=== PATIENT | female | born 1955 | race American Indian/Alaskan Native ===

== ENCOUNTER 2016-03-22 05:51 | Day surgery (SDC) | payer MEDICARE, OTHER ==
[~2016-03-22 05:51] MED LIST: ANCEF/STERILE WATER 2 GM/20 ML 20 ML IV NR; NACL 0.9% 1000 ML 1,000 ML IV SCH
[2016-03-22] MEDS ORDERED: NACL BACTERIOSTATIC INFILTRATI ONE (06:44)
[2016-03-22] MEDS ORDERED: NACL 0.9% 1000 ML 1,000 ML ONE (06:56)
[2016-03-22 07:01] LABS: Basophils % (Auto) 1.2 % (0.0-1.8); Eosinophils % (Auto) 4.6 % (0.0-4.3); Hematocrit 39.6 % (30.3-42.9); Mean Corpuscular HGB Conc 33 % (30-34); Mean Corpuscular Hemoglobin 30 pg (28-32); Mean Corpuscular Volume 92 fl (79-97); Platelet Count 232 K/mm3 (140-440); Red Cell Distribution Width 14.5 % (13.2-15.2); White Blood Count 4.9 K/mm3 (4.5-11.0)
[2016-03-22] MEDS ORDERED: SUBLIMAZE ONE (07:02)
[2016-03-22] MEDS ORDERED: DIPRIVAN 10 MG/ML IV ONE (07:02)
[2016-03-22] MEDS ORDERED: ZOFRAN ONE (07:10)
[2016-03-22] MEDS ORDERED: XYLOCAINE MPF 2% ONE (07:10)
[2016-03-22 07:11] LABS: INR 0.95 (0.87-1.13)
[2016-03-22] MEDS ORDERED: D50W (25GM) IV ONE ×2 (07:11→07:27)
--- NOTE | 2016-03-22 07:18 | Anesthesia Consultation ---
Anesthesia Consult and Med Hx Date of service: 03/22/16 - Airway Anesthetic Teeth Evaluation: Good ROM Head & Neck: Adequate Mental/Hyoid Distance: Adequate Mallampati Class: Class II Intubation Access Assessment: Good - Pulmonary Exam CTA: Yes - Cardiac Exam Cardiac Exam: RRR - Pre-Operative Health Status ASA Pre-Surgery Classification: ASA4 Proposed Anesthetic Plan: General, MAC - Pre-Anesthesia Comment Pre-Anesthesia Comments: Had hypertensive emergency 6 months ago C/B CVA and seizures. Pt presently has mild dementia and some weakness in both legs though she is able to walk with assistance. - Pulmonary Hx Smoking: No Hx Sleep Apnea: No (JEAN PAUL PRE SCREEN HIGH RISK) - Cardiovascular System Hx Hypertension: Yes (X 15 YRS) Hx Coronary Artery Disease: Yes Hx Heart Attack/AMI: Yes (Triple bypass 2008) Hx Angina: No (denies chest pain and tightness. Is unsure if she had AR prior to CABG.) Hx Peripheral Vascular Disease: Yes (LEGS) - Central Nervous System Hx Seizures: Yes (LAST SEIZURE 09/2015) CVA: Yes ("SEVERAL MINI STROKES"-GENERALIZED WEAKNESS) - Endocrine Hx Renal Disease: Yes Hx Insulin Dependent Diabetes: Yes (glucose 71 this AM . Treated with D50) - Other Systems Hx Cancer: No - Additional Comments Anesthesia Medical History Comments: Patient refuses blood transfusion.
--- NOTE | 2016-03-22 07:21 | Anesthesia Day of Surgery ---
Anesthesia Day of Surgery - Day of Surgery Patient Examined: Yes Patient H&P Reviewed: Yes Patient is NPO: Yes
[2016-03-22] MEDS ORDERED: ZOFRAN IV PRN (07:27)
[2016-03-22] MEDS ORDERED: DILAUDID IV PRN (07:27)
[2016-03-22 07:54] LABS: Anion Gap 20 mmol/L; BUN/Creatinine Ratio 6.07; Blood Urea Nitrogen 17 mg/dL (7-17); Calcium 9.3 mg/dL (8.4-10.2); Carbon Dioxide 23 mmol/L (22-30); Chloride 99.7 mmol/L (98-107); Glucose 71 mg/dL (65-100); Potassium 4.8 mmol/L (3.6-5.0); Sodium 138 mmol/L (137-145)
[2016-03-22] MEDS ORDERED: PEPCID IV NR (08:00)
[2016-03-22] MEDS ORDERED: NACL 0.9% 250ML ONE (08:00)
[2016-03-22] MEDS ORDERED: NACL 0.9% 1000 ML 1,000 ML IV SCH (08:00)
[2016-03-22] MEDS ORDERED: MARCAINE 0.5% INFILTRATI ONE (08:45)
[2016-03-22] MEDS ORDERED: NACL 0.9% IR ONE (08:46)
[2016-03-22] MEDS ORDERED: XYLOCAINE 1%/ EPI 1:100,000 INFILTRATI ONE (08:46)
[2016-03-22] MEDS ORDERED: HEPARIN 10,000 UNITS/10 ML 1,000 UNIT in NACL 0.9% 250ML 250 ML IR ONE (08:47)
--- NOTE | 2016-03-22 08:52 | Progress Note ---
Subjective Date of service: 03/22/16 Interval history: Patient was noted in PreOp to have low blood glucose. She was given 1/2 amp of D50 and immediately complained of chest tightness. She was placed on O2 by NC and was given IV pepcid. An EKG showed no change from preop. The symptoms resolved and after consultation with surgeon, it was decided to proceed using MAC anesthesia. Objective - Constitutional Vitals: Vital Signs - 12hr 03/22/16 06:20 Temperature 98.6 F Pulse Rate 68 Respiratory 18 Rate Blood Pressure 160/91 O2 Sat by Pulse 96 Oximetry - Labs CBC & Chem 7: 03/22/16 06:50 03/22/16 06:50 Labs: Abnormal lab results 03/22/16 03/22/16 Range/Units 06:50 06:50 Lymph % (Auto) 43.0 H (13.4-35.0) % [place] % (Auto) 9.4 H (0.0-7.3) % Eos % (Auto) 4.6 H (0.0-4.3) % Creatinine 2.8 H (0.7-1.2) mg/dL
[2016-03-22] MEDS ORDERED: ANCEF/STERILE WATER 2 GM/20 ML IV NR (09:00)
--- NOTE | 2016-03-22 09:32 | Operative Report ---
Operative Report Operative Report: Date of procedure: 03/22/2016 Pre-operative diagnosis: End-stage Renal Disease Post-operative diagnosis: End-stage Renal Disease Procedure(s): Creation of Left Brachial Artery to Basilic Arteriovenous Fistula Surgeon: Michael Blanc MD [employer] Age Program Associate: None Anesthesia: Local\MAC EBL: Minimal Counts: Correct Complications: None Condition: Stable Findings: Successful creation of left brachial basilic arteriovenous fistula with palpable thrill at the end of the case. Specimen: None Indication: The patient is a 60-year-old female with history of end-stage renal disease who is currently in need of long-term access. Her vein mapping suggested that she was an adequate candidate for creation of a fistula. She was given the risks, benefits, and alternative procedures and consented to procedure. Description of Procedure: The patient was brought to the operating room and laid in supine position after general endotracheal anesthesia was administered the patient was prepped and draped in normal sterile fashion. After anesthetizing the skin a transverse incision was created just below the antecubital crease. Dissection was carried down to the the basilic vein using sharp dissection. The vein was dissected out both proximally and distally and suture ligated and divided distally. I then ran a 3 Korey proximally in the vein, to ensure patency of the vein. I then flushed the vein with heparinized saline and controlled flow with a bulldog clamp. I then dissected out the brachial artery through this incision circumferentially both proximal and distal and controlled th artery with vessel loops. I placed the vessel loops on tension, controlling the flow through the artery, and created an arteriotomy using an 11 blade and Keenan scissors. I created an end to side anastomosis between the basilic vein and brachial artery using a 6-0 Prolene in running fashion. Prior to completing the anastomosis I flushed the artery both proximally and distally and then advanced a 3 Korey proximally to break the spasm in the artery. I completed the anastomosis and removed all vessel loops allowing flow into the fistula which had an excellent thrill. I achieved hemostasis with a combination of direct pressure and electrocautery. Once hemostasis was achieved I anesthetized the wound with Marcaine. I closed the wound in 2 layers using 3-0 Vicryl in a running fashion to close the deep dermal layer and 4-0 Monocryl in a running fashion in the subcuticular layer. I dressed the wound with Surgicel. The patient tolerated the procedure well, all sponge needle and instrument counts were correct. The patient was taken to recovery in stable condition.
--- NOTE | 2016-03-22 09:36 | Short Stay Summary ---
Short Stay Documentation Date of service: 03/22/16 Narrative H&P: See H&P - History H&P: obtained from office - Allergies and Medications Current Medications: Allergies Tetracyclines Adverse Reaction (Verified 09/26/14 12:09) Unknown Home Medications Medication Instructions Recorded Confirmed Last Taken Type Gabapentin [Neurontin] 300 mg PO DAILY 07/25/14 03/22/16 03/21/16 19:00 History Linaclotide [Linzess] 290 mcg PO QDAY 07/25/14 03/22/16 03/21/16 19:00 History Insulin Glargine [Lantus VIAL] 10 units SUB-Q QPM 02/23/16 03/22/16 03/21/16 19: 00 History glipiZIDE [Glucotrol] 5 mg PO QDAY 02/23/16 03/22/16 03/21/16 19:00 History levETIRAcetam [Keppra TAB] 500 mg PO DAILY 02/23/16 03/22/16 03/21/16 19:00 History AtorvaSTATin 20 mg PO DAILY 03/22/16 03/22/16 03/21/16 19:00 History Clopidogrel Bisulfate [Clopidogrel] 75 mg PO DAILY 03/22/16 03/22/16 03/21/16 19 :00 History Vitamin D 50,000 units PO 1XW 03/22/16 03/22/16 03/21/16 19:00 History Active Medications Cefazolin Sodium (Ancef/Sterile Water 2 Gm/20 Ml) 2 gm IV PREOP NR Stop: 03/22/16 23:59 Famotidine (Pepcid) 20 mg IV PREOP NR Stop: 03/22/16 23:00 Last Admin: 03/22/16 07:40 Dose: 20 mg Hydromorphone HCl (Dilaudid) 0.25 mg IV Q10MIN PRN PRN Reason: Pain, Moderate (4-6) Stop: 03/25/16 07:28 Sodium Chloride (Nacl 0.9% 1000 Ml) 1,000 mls @ 42 mls/hr IV DIRECT ALLEY Last Admin: 03/22/16 07:10 Dose: 42 mls/hr - Brief post op/procedure progress note Date of procedure: 03/22/16 Pre-op diagnosis: chronic renal insufficiency Post-op diagnosis: same Procedure: Creation of left brachiobasilic arteriovenous fistula Anesthesia: MAC, local Surgeon: BRADLY UNDERWOOD Estimated blood loss: minimal Pathology: none Condition: stable - Disposition Condition at discharge: Good Disposition: DISCHARGED TO HOME OR SELFCARE Short Stay Discharge Plan Activity: other (no heavy lifting with left arm) Wound: open to air, keep clean and dry, other (okay to wash the wound with soap and water but do not soak in water) Follow up with: BRADLY UNDERWOOD MD [Staff Physician] - 14 Days Prescriptions: HYDROcodone/APAP 7.5-325 [[place] 7.5/325] 1 each PO Q6HR PRN #50 tablet PRN Reason: Pain
--- NOTE | 2016-03-22 10:21 | Post Anesthesia Evaluation ---
- Post Anesthesia Evaluation Patient Participated: Yes Airway Patent: Yes Stable Respiratory Function: Yes Nausea/Vomiting: No Temp > 96.8F: Yes Pain Manageable: Yes Adequeate Hydration: Yes Anesthesia Complications: No Block Receding Appropriately: Not Applicable Patient on Ventilator: No
[2016-03-22 10:47] VITALS: BP 126/78
== END 2016-03-22 11:55 | disposition home or self-care (01) ==
LOC: OR 05:51
PROVIDERS: ATTEND Surgery Vascular Surgery
DX: E11.22 Type 2 diabetes mellitus with diabetic chronic kidney disease (principal); I12.0 Hypertensive chronic kidney disease with stage 5 chronic kidney disease or end stage renal disease; N18.6 End stage renal disease; M19.90 Unspecified osteoarthritis, unspecified site; E78.00 Pure hypercholesterolemia, unspecified; F32.9 Major depressive disorder, single episode, unspecified; Z86.73 Personal history of transient ischemic attack (TIA), and cerebral infarction without residual deficits; Z98.890 Other specified postprocedural states; Z83.3 Family history of diabetes mellitus; Z82.49 Family history of ischemic heart disease and other diseases of the circulatory system; Z95.1 Presence of aortocoronary bypass graft; Z99.2 Dependence on renal dialysis; Z90.710 Acquired absence of both cervix and uterus
CPT/HCPCS: 36415; 36821; 80048; 82962; 85025; 85610; 93005; 93010; C1757; J0690; J1644; J2405; J2704; J7030; J7050; J3010

== ENCOUNTER 2016-05-10 22:30 | Inpatient (IN) | payer MEDICARE ==
[2016-05-11 00:26] LABS: Hematocrit 42.6 % (30.3-42.9); Hemoglobin 13.4 gm/dl (10.1-14.3); Mean Corpuscular HGB Conc 31 % (30-34); Mean Corpuscular Hemoglobin 30 pg (28-32); Mean Corpuscular Volume 95 fl (79-97); Platelet Count 276 K/mm3 (140-440); Red Blood Count 4.47 M/mm3 (3.65-5.03); Red Cell Distribution Width 16.5 % (13.2-15.2); White Blood Count 5.6 K/mm3 (4.5-11.0)
[2016-05-11 00:50] LABS: Albumin 4.2 g/dL (3.9-5); Albumin/Globulin Ratio 1.3 %; BUN/Creatinine Ratio 7.6; Bilirubin,Total 0.4 mg/dL (0.1-1.2); Calcium 9.5 mg/dL (8.4-10.2); Chloride 100.3 mmol/L (98-107); Potassium 4.3 mmol/L (3.6-5.0); Total Protein 7.5 g/dL (6.3-8.2)
[2016-05-11 04:33] LABS: Bacteria,Urine 1+ /HPF (Negative); Bilirubin,Urine SM (Negative); Blood,Urine NEG (Negative); Ketones,Urine TR mg/dL (Negative); Leukocyte Esterase,Urine LG (Negative); Mucus,Urine FEW /HPF; Nitrite,Urine NEG (Negative); Renal Epithelial Cells,Urine 2 /LPF
[2016-05-11] MEDS ORDERED: ROCEPHIN/NS 1 GM/50 ML 1 GM/50 ML BAG IV ONE (05:19)
[2016-05-11] MEDS ORDERED: NACL 0.9% 1000 ML 1,000 ML IV SCH ×2 (06:00→09:00)
--- NOTE | 2016-05-11 07:40 | Emergency Department Report ---
HPI - General Chief Complaint: Abdominal Pain Time Seen by Provider: 05/11/16 06:52 - HPI HPI: Chief complaint: Abdominal pain HPI: Patient is a 60-year-old female with a history of stage renal disease on hemodialysis. Last dialysis was yesterday after missing her dialysis on . Patient has hypertension and diabetes as well as coronary artery disease status post triple bypass surgery in 2008. Patient states the abdominal pain began yesterday evening. Patient had nausea but no vomiting, fever or diarrhea. Patient denies any shortness of breath cough or cold. Patient was noted to have a urinary tract infection and prior to my arrival was given IV fluids and Rocephin and had a urine culture done. Patient states for the last 30 minutes that she's been here she's had chest heaviness. Patient is also had a history of a CVA is a somewhat poor historian. Patient's sister is here with her and gives much of the history. Mode of arrival: [private car] Source: [Patient] and patient's sister Began: Yesterday evening Duration: Less than 1 day Context: See above Quality: Heaviness to the chest and vague abdominal pain Severity: 5 out of 10 Improved with: Nothing Worsened with: Nothing Associated signs and symptoms: See above ED Past Medical Hx - Past Medical History Previous Medical History?: Yes Hx Hypertension: Yes (X 15 YRS) Hx CVA: Yes Hx Heart Attack/AMI: Yes (Triple bypass 2008) Hx Congestive Heart Failure: (pt denies being diagnosed) Hx Diabetes: Yes Hx GERD: Yes Hx Renal Disease: Yes Hx Arthritis: Yes Hx Headaches / Migraines: Yes (MIGRAINES) Hx Seizures: Yes (LAST SEIZURE 09/2015) Hx Dementia: Yes Additional medical history: triple bypass 2008 - Surgical History Past Surgical History?: Yes Hx Open Heart Surgery: Yes (CABG 2008) Additional Surgical History: triple bypass 2008 - Social History Smoking Status: Never Smoker Substance Use Type: None - Medications Home Medications: Home Medications Medication Instructions Recorded Confirmed Last Taken Type Gabapentin [Neurontin] 300 mg PO DAILY 07/25/14 03/22/16 03/21/16 19:00 History Linaclotide [Linzess] 290 mcg PO QDAY 07/25/14 03/22/16 03/21/16 19:00 History Insulin Glargine [Lantus VIAL] 10 units SUB-Q QPM 02/23/16 03/22/16 03/21/16 19: 00 History glipiZIDE [Glucotrol] 5 mg PO QDAY 02/23/16 03/22/16 03/21/16 19:00 History levETIRAcetam [Keppra TAB] 500 mg PO DAILY 02/23/16 03/22/16 03/21/16 19:00 History AtorvaSTATin 20 mg PO DAILY 03/22/16 03/22/16 03/21/16 19:00 History Clopidogrel Bisulfate [Clopidogrel] 75 mg PO DAILY 03/22/16 03/22/16 03/21/16 19 :00 History HYDROcodone/APAP 7.5-325 [[place] 1 each PO Q6HR PRN #50 tablet 03/22/16 Unknown Rx 7.5/325] Vitamin D 50,000 units PO 1XW 03/22/16 03/22/16 03/21/16 19:00 History ED Review of Systems ROS: Stated complaint: ABD CRAMPS/ Other details as noted in HPI Comment: Unobtainable due to pts medical conditions (due to patient's poor memory) Physical Exam - Physical Exam Vital Signs: Vital Signs 05/10/16 23:41 Temperature 98.2 F Pulse Rate 84 Respiratory 18 Rate Blood Pressure 148/94 O2 Sat by Pulse 100 Oximetry Physical Exam: GENERAL: The patient is well-developed well-nourished . HEENT: Normocephalic. Atraumatic. Extraocular motions are intact. Patient has moist mucous membranes. NECK: Supple. No meningitic signs are noted. There is no adenopathy noted. CHEST/LUNGS: Clear to auscultation. There is no respiratory distress noted. HEART/CARDIOVASCULAR: Regular. There is no tachycardia. There is no gallop rub or murmur. ABDOMEN: Abdomen is soft, nontender. Patient has normal bowel sounds. There is no abdominal distention. SKIN: There is no rash. There is no edema. There is no diaphoresis. NEURO: The patient is awake, alert, and oriented. The patient is cooperative. The patient has no focal neurologic deficits. Patient Is Slow to Answer Questions and Seems Confused about the answer at times MUSCULOSKELETAL: There is no tenderness or deformity. There is no limitation range of motion. There is no evidence of acute injury. ED Course Vital Signs 05/10/16 23:41 Temperature 98.2 F Pulse Rate 84 Respiratory 18 Rate Blood Pressure 148/94 O2 Sat by Pulse 100 Oximetry - Reevaluation(s) Reevaluation #1: 05/11/16 07:43 Patient will be admitted to the hospitalist for her chest pressure. Patient has an extensive cardiac history. ED Medical Decision Making - Lab Data Result diagrams: 05/11/16 00:15 05/11/16 00:15 Laboratory Tests 09/02/15 05/11/16 05/11/16 08:47 00:15 03:47 Total Creatine Kinase 110 CK-MB (CK-2) 1.1 CK-MB (CK-2) Rel Index 1.0 Troponin T < 0.010 L Lipase 21 Ur Leukocyte Esterase Lg Urine WBC (Auto) 77.0 H Urine RBC (Auto) 10.0 U Epithel Cells (Auto) 4.0 Urine Bacteria (Auto) 1+ 05/11/16 07:07 Total Creatine Kinase CK-MB (CK-2) CK-MB (CK-2) Rel Index Troponin T < 0.010 Lipase Ur Leukocyte Esterase Urine WBC (Auto) Urine RBC (Auto) U Epithel Cells (Auto) Urine Bacteria (Auto) - EKG Data -: EKG Interpreted by Me EKG shows normal: sinus rhythm Rate: normal (75) - EKG Data When compared to previous EKG there are: no significant change Interpretation: other (old inferior and anterior lateral infarct) - Radiology Data interpreted by me: Chest x-ray shows no acute process. Critical care attestation.: If time is entered above; I have spent that time in minutes in the direct care of this critically ill patient, excluding procedure time. ED Disposition Clinical Impression: Chest pain, Chronic kidney disease (CKD), Urinary tract infection Disposition: OP ADMITTED IP TO THIS HOSP Is pt being admited?: Yes Does the pt Need Aspirin: Yes Condition: Fair Instructions: Abdominal Pain (ED), Chest Pain (ED) Referrals: PRIMARY CARE,MD [Primary Care Provider] - 3-5 Days Time of Disposition: 07:35 (admit to the hospitalist)
[2016-05-11] MEDS ORDERED: NORCO 7.5/325 PO PRN (08:17)
--- NOTE | 2016-05-11 08:17 | History and Physical Report ---
History of Present Illness Date of examination: 05/11/16 History of present illness: Patient is a 60-year-old female with a history of stage renal disease on hemodialysis. Last dialysis was yesterday after missing her dialysis on . Patient has hypertension and diabetes as well as coronary artery disease status post triple bypass surgery in 2008. Patient states the abdominal pain began yesterday evening. Patient had nausea but no vomiting, fever or diarrhea. Patient denies any shortness of breath cough or cold. Patient was noted to have a urinary tract infection and prior to my arrival was given IV fluids and Rocephin and had a urine culture done. Patient states for the last 30 minutes that she's been here she's had chest heaviness. Patient is also had a history of a CVA is a somewhat poor historian. Patient's sister is here with her and gives much of the history. Past History Past Medical History: diabetes, seizures Medications and Allergies Allergies Allergy/AdvReac Type Severity Reaction Status Date / Time Tetracyclines AdvReac Unknown Verified 09/26/14 12:09 Home Medications Medication Instructions Recorded Confirmed Last Taken Type Gabapentin [Neurontin] 300 mg PO DAILY 07/25/14 05/11/16 03/21/16 19:00 History Linaclotide [Linzess] 290 mcg PO QDAY 07/25/14 05/11/16 03/21/16 19:00 History Insulin Glargine [Lantus VIAL] 10 units SUB-Q QPM 02/23/16 05/11/16 03/21/16 19: 00 History glipiZIDE [Glucotrol] 5 mg PO QDAY 02/23/16 05/11/16 03/21/16 19:00 History levETIRAcetam [Keppra TAB] 500 mg PO DAILY 02/23/16 05/11/16 03/21/16 19:00 History AtorvaSTATin 20 mg PO DAILY 03/22/16 05/11/16 03/21/16 19:00 History Clopidogrel Bisulfate [Clopidogrel] 75 mg PO DAILY 03/22/16 05/11/16 03/21/16 19 :00 History HYDROcodone/APAP 7.5-325 [[place] 1 each PO Q6HR PRN #50 tablet 03/22/16 05/11/16 Unknown Rx 7.5/325] Vitamin D 50,000 units PO 1XW 03/22/16 05/11/16 05/05/16 10:00 History Active Meds: Active Medications Sodium Chloride (Nacl 0.9% 1000 Ml) 1,000 mls @ 999 mls/hr IV DIRECT ALLEY Review of Systems Cardiovascular: chest pain Exam - Constitutional Vitals: Temp Pulse Resp BP Pulse Ox 98.2 F 84 18 148/94 100 05/10/16 23:41 05/10/16 23:41 05/10/16 23:41 05/10/16 23:41 05/10/16 23:41 General appearance: Present: mild distress - EENT Eyes: Present: PERRL, EOM intact ENT: hearing intact, clear oral mucosa - Neck Neck: Present: supple, normal ROM - Respiratory Respiratory effort: normal Respiratory: bilateral: CTA - Cardiovascular Rhythm: regular Heart Sounds: Present: S1 & S2 - Abdominal General gastrointestinal: Present: soft, non-tender, non-distended, normal bowel sounds - Musculoskeletal Musculoskeletal: strength equal bilaterally - Psychiatric Psychiatric: appropriate mood/affect, intact judgment & insight - Neurologic Neurologic: CNII-XII intact, moves all extremities Results - Labs CBC & Chem 7: 05/11/16 00:15 05/11/16 00:15 Labs: Laboratory Last Values WBC 5.6 K/mm3 (4.5-11.0) 05/11/16 00:15 RBC 4.47 M/mm3 (3.65-5.03) 05/11/16 00:15 Hgb 13.4 gm/dl (10.1-14.3) 05/11/16 00:15 Hct 42.6 % (30.3-42.9) 05/11/16 00:15 MCV 95 fl (79-97) 05/11/16 00:15 MCH 30 pg (28-32) 05/11/16 00:15 MCHC 31 % (30-34) 05/11/16 00:15 RDW 16.5 % (13.2-15.2) H 05/11/16 00:15 Plt Count 276 K/mm3 (140-440) 05/11/16 00:15 Lymph % (Auto) 34.8 % (13.4-35.0) 05/11/16 00:15 [place] % (Auto) 9.9 % (0.0-7.3) H 05/11/16 00:15 Eos % (Auto) 3.0 % (0.0-4.3) 05/11/16 00:15 Baso % (Auto) 1.0 % (0.0-1.8) 05/11/16 00:15 Lymph # 2.0 K/mm3 (1.2-5.4) 05/11/16 00:15 [place] # 0.6 K/mm3 (0.0-0.8) 05/11/16 00:15 Eos # 0.2 K/mm3 (0.0-0.4) 05/11/16 00:15 Baso # 0.1 K/mm3 (0.0-0.1) 05/11/16 00:15 Seg Neutrophils % 51.3 % (40.0-70.0) 05/11/16 00:15 Seg Neutrophils # 2.9 K/mm3 (1.8-7.7) 05/11/16 00:15 Sodium 143 mmol/L (137-145) 05/11/16 00:15 Potassium 4.3 mmol/L (3.6-5.0) 05/11/16 00:15 Chloride 100.3 mmol/L (98-107) 05/11/16 00:15 Carbon Dioxide 28 mmol/L (22-30) 05/11/16 00:15 Anion Gap 19 mmol/L 05/11/16 00:15 BUN 19 mg/dL (7-17) H 05/11/16 00:15 Creatinine 2.5 mg/dL (0.7-1.2) H 05/11/16 00:15 Estimated GFR 24 ml/min 05/11/16 00:15 BUN/Creatinine Ratio 7.60 % 05/11/16 00:15 Glucose 75 mg/dL (65-100) 05/11/16 00:15 POC Glucose 82 (70-105) 05/11/16 05:19 Calcium 9.5 mg/dL (8.4-10.2) 05/11/16 00:15 Total Bilirubin 0.4 mg/dL (0.1-1.2) 05/11/16 00:15 AST 20 units/L (5-40) 05/11/16 00:15 ALT 11 units/L (7-56) 05/11/16 00:15 Alkaline Phosphatase 124 units/L (35-129) 05/11/16 00:15 Troponin T < 0.010 ng/mL (0.00-0.029) 05/11/16 07:07 Total Protein 7.5 g/dL (6.3-8.2) 05/11/16 00:15 Albumin 4.2 g/dL (3.9-5) 05/11/16 00:15 Albumin/Globulin Ratio 1.3 % 05/11/16 00:15 Lipase 21 units/L (13-60) 05/11/16 00:15 Urine Color [place] (Yellow) 05/11/16 03:47 Urine Turbidity Slightly-cloudy (Clear) 05/11/16 03:47 Urine pH 5.0 (5.0-7.0) 05/11/16 03:47 Ur Specific [place] 1.023 (1.003-1.030) 05/11/16 03:47 Urine Protein 100 mg/dl mg/dL (Negative) 05/11/16 03:47 Urine Glucose (UA) Neg mg/dL (Negative) 05/11/16 03:47 Urine Ketones Tr mg/dL (Negative) 05/11/16 03:47 Urine Blood Neg (Negative) 05/11/16 03:47 Urine Nitrite Neg (Negative) 05/11/16 03:47 Urine Bilirubin Sm (Negative) 05/11/16 03:47 Urine Ictotest Negative (Negative) 05/11/16 03:47 Urine Urobilinogen 2.0 mg/dL (<2.0) 05/11/16 03:47 Ur Leukocyte Esterase Lg (Negative) 05/11/16 03:47 Urine WBC (Auto) 77.0 /HPF (0.0-6.0) H 05/11/16 03:47 Urine RBC (Auto) 10.0 /HPF (0.0-6.0) 05/11/16 03:47 U Epithel Cells (Auto) 4.0 /HPF (0-13.0) 05/11/16 03:47 Urine Bacteria (Auto) 1+ /HPF (Negative) 05/11/16 03:47 Ur Renal Epithelial Cell 2 /LPF 05/11/16 03:47 Hyaline Casts 13 /LPF 05/11/16 03:47 Urine Mucus Few /HPF 05/11/16 03:47 Assessment and Plan - Patient Problems (1) Chest pain Current Visit: Yes Status: Acute Qualifiers: Chest pain type: C Plan to address problem: We'll admit to telemetry, get cardiology consult, aspirin, beta blockers, 2-D echo, follow troponins (2) Hypertension Current Visit: Yes Status: Acute Qualifiers: Hypertension type: H Plan to address problem: Continue blood pressure meds (3) Chronic kidney disease (CKD) Current Visit: Yes Status: Chronic Qualifiers: Chronic kidney disease stage: C Plan to address problem: We'll get nephrology consult. Unsure whether this is acute etiology of chronic (4) H/O: CVA (cerebrovascular accident) Current Visit: No Status: Chronic
[2016-05-11] MEDS ORDERED: MILK OF MAGNESIA PO PRN (08:19)
[2016-05-11] MEDS ORDERED: MORPHINE IV PRN (08:19)
[2016-05-11] MEDS ORDERED: ZOFRAN IV PRN (08:19)
[2016-05-11] MEDS ORDERED: TYLENOL PO PRN (08:19)
[2016-05-11] MEDS ORDERED: SODIUM CHLORIDE FLUSH SYRINGE 10 ML IV PRN (08:19)
[2016-05-11] MEDS ORDERED: PERCOCET 5/325 PO PRN (08:19)
[2016-05-11] MEDS ORDERED: VITAMIN D 50000 UNIT PO SCH (08:30)
[2016-05-11] MEDS ORDERED: LEXISCAN IV ONE ×2 (09:11→09:13)
--- NOTE | 2016-05-11 09:51 | XRay Report ---
AP CHEST: HISTORY: chest pain AP view of the chest demonstrates a normal mediastinal and cardiac contour with clear lungs and normal bony and soft tissue structures. CABG changes. A dual-lumen right IJ venous catheter has been inserted since 09/02/15 which terminates in the mid SVC. IMPRESSION: No acute cardiopulmonary process.
[2016-05-11] MEDS ORDERED: NON-FORMULARY (Atorvastatin 20 MG) PO SCH (10:00)
[2016-05-11] MEDS ORDERED: NON-FORMULARY (Linaclotide [Linzess] 290 MCG) PO SCH (10:00)
[2016-05-11] MEDS ORDERED: LOPRESSOR PO SCH (10:00)
[2016-05-11] MEDS ORDERED: DULCOLAX PR PRN (10:00)
[2016-05-11] MEDS ORDERED: NON-FORMULARY (Gabapentin [Neurontin] 300 MG) PO SCH (10:00)
[2016-05-11] MEDS ORDERED: PLAVIX PO SCH (10:00)
[2016-05-11] MEDS ORDERED: GLUCOTROL PO SCH (10:00)
[2016-05-11 10:04] LABS: Creatine Kinase MB 1.2 ng/mL (0.0-4.0)
[2016-05-11 10:05] LABS: Creatine Kinase 67 units/L (30-135)
--- NOTE | 2016-05-11 10:26 | Consultation ---
History of Present Illness - Reason for Consult Consult date: 05/11/16 end stage renal disease - History of Present Illness This is a 60-year-old female who presented to the hospital for a chief complaint of abdominal pain with associated nausea x 1 day prior to admission and while in E.R began to complain of having chest pain. Patient has ESRD and was started on hemodialysis here on 09/06/2015. Patient has history of Diabetes , Hypertension and CAD, S/P triple bypass surgery. Patient states she receives hemodialysis at [facility] in [place] on a schedule of Friday, Friday, and Friday's per patient. She reports she is due for hemodialysis today. Patient has a left AVF placed 1 week ago and a Right IJ perm-catheter placed in August 2015. Patient was seen in medical laboratory technical officer awaiting to undergo stress test. We will hemodialyze patient after stress test today. We are being consulted for management of this patient's ESRD. Past History Past Medical History: CAD, diabetes, hypertension Past Surgical History: Other (S/P CABG, Left AVF placed 1 week ago and Right IJ perm-catheter) Social history: no significant social history Family history: no significant family history Medications and Allergies Allergies Allergy/AdvReac Type Severity Reaction Status Date / Time Tetracyclines AdvReac Unknown Verified 09/26/14 12:09 Home Medications Medication Instructions Recorded Confirmed Last Taken Type Gabapentin [Neurontin] 300 mg PO DAILY 07/25/14 05/11/16 03/21/16 19:00 History Linaclotide [Linzess] 290 mcg PO QDAY 07/25/14 05/11/16 03/21/16 19:00 History Insulin Glargine [Lantus VIAL] 10 units SUB-Q QPM 02/23/16 05/11/16 03/21/16 19: 00 History glipiZIDE [Glucotrol] 5 mg PO QDAY 02/23/16 05/11/16 03/21/16 19:00 History levETIRAcetam [Keppra TAB] 500 mg PO DAILY 02/23/16 05/11/16 03/21/16 19:00 History AtorvaSTATin 20 mg PO DAILY 03/22/16 05/11/16 03/21/16 19:00 History Clopidogrel Bisulfate [Clopidogrel] 75 mg PO DAILY 03/22/16 05/11/16 03/21/16 19 :00 History HYDROcodone/APAP 7.5-325 [[place] 1 each PO Q6HR PRN #50 tablet 03/22/16 05/11/16 Unknown Rx 7.5/325] Vitamin D 50,000 units PO 1XW 03/22/16 05/11/16 05/05/16 10:00 History Active Meds: Active Medications Acetaminophen (Tylenol) 650 mg PO Q4H PRN PRN Reason: Pain MILD(1-3)/Fever >100.5/HARRIS Acetaminophen/Hydrocodone Bitart ([place] 7.5/325) 1 each PO Q6H PRN PRN Reason: Pain Aspirin (Ecotrin) 325 mg PO QDAY [facility] Atorvastatin Calcium (Lipitor) 20 mg PO DAILY [facility] Bisacodyl (Dulcolax) 10 mg [place] QDAY PRN PRN Reason: Constipation unrelieved by MOM Clopidogrel Bisulfate (Plavix) 75 mg PO DAILY [facility] Enoxaparin Sodium (Lovenox) 30 mg SUB-Q QDAY [facility] Gabapentin (Neurontin) 300 mg PO DAILY [facility] Glipizide (Glucotrol) 5 mg PO QDDIAB [facility] Sodium Chloride (Nacl 0.9% 1000 Ml) 1,000 mls @ 999 mls/hr IV DIRECT [facility] Sodium Chloride (Nacl 0.9% 1000 Ml) 1,000 mls @ 100 mls/hr IV DIRECT [facility] Insulin Detemir (Levemir) 10 units SUB-Q DAILY@1800 [facility] Levetiracetam (Keppra) 500 mg PO DAILY [facility] Magnesium Hydroxide (Milk Of Magnesia) 30 ml PO Q4H PRN PRN Reason: Constipation Metoprolol Tartrate (Lopressor) 25 mg PO BID [facility] Miscellaneous Medication (Linaclotide [Linzess]) 290 mcg PO QDAY [facility] Miscellaneous Medication (Vitamin D) 50,000 units PO 1XW [facility] Morphine Sulfate (Morphine) 2 mg IV Q4H PRN PRN Reason: Pain, Moderate (4-6) Ondansetron HCl (Zofran) 4 mg IV Q8H PRN PRN Reason: N/V unrelieved by Reglan Oxycodone/Acetaminophen (Percocet 5/325) 1 tab PO Q6H PRN PRN Reason: Pain, Moderate (4-6) Sodium Chloride (Sodium Chloride Flush Syringe 10 Ml) 10 ml IV PRN PRN PRN Reason: LINE FLUSH Review of Systems Constitutional: fatigue, no weight loss, no weight gain, no fever, no chills, no sweats Ears, nose, mouth and throat: no ear pain, no ear discharge, no tinnitis, no decreased hearing, no nose pain, no nasal congestion, no nasal discharge Cardiovascular: chest pain, no orthopnea, no palpitations, no rapid/irregular heart beat, no edema, no syncope, no lightheadedness, no shortness of breath Respiratory: no cough with sputum, no excessive sputum, no hemoptysis, no shortness of breath, no dyspnea on exertion Gastrointestinal: abdominal pain, nausea, no vomiting, no diarrhea, no constipation, no change in bowel habits Genitourinary Female: no pelvic pain, no flank pain, no menorrhagia, no dysuria , no urinary frequency, no urgency Musculoskeletal: no neck stiffness, no neck pain, no shooting arm pain, no arm numbness/tingling, no low back pain, no shooting leg pain Integumentary: no rash, no pruritis, no redness, no sores, no wounds Neurological: no head injury, no transient paralysis, no paralysis, no weakness , no parathesias, no numbness Psychiatric: no memory loss, no change in sleep habits, no sleep disturbances, no insomnia, no hypersomnia, no change in appetite Endocrine: no cold intolerance, no heat intolerance, no polyphagia, no excessive thirst, no polydipsia Exam - Vital Signs Vital signs: Vital Signs Temp Pulse Resp BP Pulse Ox 98.2 F 84 18 148/94 100 05/10/16 23:41 05/10/16 23:41 05/10/16 23:41 05/10/16 23:41 05/10/16 23:41 - General Appearance General appearance: well-developed, appears stated age EENT: ATNC, PERRL, hearing intact, vision intact Neck: Present: neck supple, trachea midline Respiratory: Clear to Ascultation Heart: regular, S1S2 Gastrointestinal: Present: normoactive bowel sounds Integumentary: warm and dry Neurologic: alert and oriented x3 Musculoskeletal: Present: other (No edema. Left AVF has no bruit or thrill. Right IJ perm-catheter intact) Psychiatric: cooperative Results - Lab Results 05/11/16 00:15 05/11/16 00:15 Most recent lab results Calcium 9.5 mg/dL (8.4-10.2) 05/11/16 00:15 Assessment and Plan - Patient Problems (1) ESRD (end stage renal disease) on dialysis Current Visit: Yes Status: Chronic Plan to address problem: Patient receives hemodialysis at [facility] on mainly a T,T,S schedule Patient is due for hemodialysis today After completion of her stress test today, we will hemodialyze patient today Patient has a Right IJ perm-catheter to be used for hemodialysis today Left AVF has not matured Fluid restriction of 1 liter per day Renally dose medications Obtain daily weights Will assess dialysis needs daily Renal plan reviewed with Dr. Shore. (2) Hypertension Current Visit: Yes Status: Acute Qualifiers: Hypertension type: H Plan to address problem: Stable on Metoprolol (3) Diabetes mellitus Current Visit: Yes Status: Acute Qualifiers: Diabetes mellitus type: D Diabetes mellitus complication status: D Diabetes mellitus complication detail: D Diabetic retinopathy severity: D Proliferative retinopathy type: P Diabetes mellitus macular edema: D Diabetes mellitus intermodal customer service insulin use: D Laterality: L Chronic kidney disease stage: C Plan to address problem: Management as Per primary team (4) Chest pain Current Visit: Yes Status: Acute Qualifiers: Chest pain type: C Plan to address problem: Undergoing stress test today
[2016-05-11] MEDS ORDERED: TYLENOL ONE (11:04)
[2016-05-11] MEDS ORDERED: NACL 0.9% 1000 ML 100 ML IV PRN (11:53)
--- NOTE | 2016-05-11 13:23 | Consultation ---
History of Present Illness Consult date: 05/11/16 Consult reason: chest pain History of present illness: 60 YO woman with h/o CAD s/p CABG, ESRD on HD, Htn and DM who presented to ED with chest and abdominal pain. She is a poor historian and not able to characterize her pain very well. The pain has now resolved. She has not had any dyspnea, palpitations, syncope or pre-syncope. She has no other cardiac complaints. ECG today reveals NSR and prior inferior/anterior MIs. Past History Past Medical History: CAD, diabetes, hypertension Past Surgical History: Other (S/P CABG, Left AVF placed 1 week ago and Right IJ perm-catheter) Social history: no significant social history Family history: no significant family history Medications and Allergies Allergies Allergy/AdvReac Type Severity Reaction Status Date / Time Tetracyclines AdvReac Unknown Verified 09/26/14 12:09 Home Medications Medication Instructions Recorded Confirmed Last Taken Type Gabapentin [Neurontin] 300 mg PO DAILY 07/25/14 05/11/16 03/21/16 19:00 History Linaclotide [Linzess] 290 mcg PO QDAY 07/25/14 05/11/16 03/21/16 19:00 History Insulin Glargine [Lantus VIAL] 10 units SUB-Q QPM 02/23/16 05/11/16 03/21/16 19: 00 History glipiZIDE [Glucotrol] 5 mg PO QDAY 02/23/16 05/11/16 03/21/16 19:00 History levETIRAcetam [Keppra TAB] 500 mg PO DAILY 02/23/16 05/11/16 03/21/16 19:00 History AtorvaSTATin 20 mg PO DAILY 03/22/16 05/11/16 03/21/16 19:00 History Clopidogrel Bisulfate [Clopidogrel] 75 mg PO DAILY 03/22/16 05/11/16 03/21/16 19 :00 History HYDROcodone/APAP 7.5-325 [[place] 1 each PO Q6HR PRN #50 tablet 03/22/16 05/11/16 Unknown Rx 7.5/325] Vitamin D 50,000 units PO 1XW 03/22/16 05/11/16 05/05/16 10:00 History Active Meds: Active Medications Acetaminophen (Tylenol) 650 mg PO Q4H PRN PRN Reason: Pain MILD(1-3)/Fever >100.5/HARRIS Last Admin: 05/11/16 11:09 Dose: 650 mg Acetaminophen/Hydrocodone Bitart ([place] 7.5/325) 1 each PO Q6H PRN PRN Reason: Pain Aspirin (Ecotrin) 325 mg PO QDAY [facility] Atorvastatin Calcium (Lipitor) 20 mg PO DAILY [facility] Bisacodyl (Dulcolax) 10 mg [place] QDAY PRN PRN Reason: Constipation unrelieved by [facility] Clopidogrel Bisulfate (Plavix) 75 mg PO DAILY [facility] Enoxaparin Sodium (Lovenox) 30 mg SUB-Q QDAY [facility] Gabapentin (Neurontin) 300 mg PO DAILY [facility] Glipizide (Glucotrol) 5 mg PO QDDIAB [facility] Sodium Chloride (Nacl 0.9% 1000 Ml) 1,000 mls @ 999 mls/hr IV [facility] [place] Sodium Chloride (Nacl 0.9% 1000 Ml) 1,000 mls @ 100 mls/hr IV DIRECT [place] Sodium Chloride (Nacl 0.9% 1000 Ml) 100 mls @ 999 mls/hr IV [place] PRN PRN Reason: Hypotension Insulin Detemir (Levemir) 10 units SUB-Q DAILY@1800 [facility] Levetiracetam (Keppra) 500 mg PO DAILY [facility] Magnesium Hydroxide (Milk Of Magnesia) 30 ml PO Q4H PRN PRN Reason: Constipation Metoprolol Tartrate (Lopressor) 25 mg PO BID [facility] Miscellaneous Medication (Linaclotide [Linzess]) 290 mcg PO QDAY [facility] Miscellaneous Medication (Vitamin D) 50,000 units PO 1XW [facility] Morphine Sulfate (Morphine) 2 mg IV Q4H PRN PRN Reason: Pain, Moderate (4-6) Ondansetron HCl (Zofran) 4 mg IV Q8H PRN PRN Reason: N/V unrelieved by Reglan Oxycodone/Acetaminophen (Percocet 5/325) 1 tab PO Q6H PRN PRN Reason: Pain, Moderate (4-6) Sodium Chloride (Sodium Chloride Flush Syringe 10 Ml) 10 ml IV PRN PRN PRN Reason: LINE FLUSH Review of Systems All systems: negative (per hpi) Physical Examination Vital Signs Temp Pulse Resp BP Pulse Ox 98.2 F 84 18 148/94 100 05/10/16 23:41 05/10/16 23:41 05/10/16 23:41 05/10/16 23:41 05/10/16 23:41 General appearance: no acute distress HEENT: Positive: PERRL, EOMI Neck: Positive: neck supple. Negative: JVD/HJR Cardiac: Positive: Reg Rate and Rhythm. Negative: Audible Murmur Lungs: Positive: clear to auscultation Abdomen: Positive: Soft, Active Bowel Sounds Extremities: Absent: edema Results 05/11/16 00:15 05/11/16 00:15 Assessment and Plan Chest pain in patient with h/o CAD s/p CABG ESRD Htn DM Recommend: MPI today Meantime, medical therapy for h/o CAD should include aspirin, statin and beta norma as tolerated.
--- NOTE | 2016-05-11 13:46 | Admit Criteria Form ---
Admission Criteria Documentation: URINARY COMPLICATIONS Clinical Indications for Inpatient Care (Place 'X' for any and all applicable criteria): Ongoing inpatient care may be indicated for urinary complications with ANY ONE of the following: [X ]I. Urinary tract infection requiring inpatient care as indicated by ANY ONE of the following(8)(19)(20): [ ]a) Severe symptoms (eg, high fever, severe pain) [ ]b) Vomiting or dehydration requiring ongoing inpatient care [X ]c) IV antibiotic needs that cannot be managed at lower level of care [ ]d) Hemodynamic instability [ ]e) Obstruction of collecting system by stone or tumor [ ]II. Urinary retention requiring drainage or surgery (3)(4)(5)(17)(18) [ ]III. Renal failure (Use Renal Failure Criteria for further information.) [ ]IV. Oliguria(30) [ ]V. Post obstructive diuresis requiring close monitoring of urine output and intravenous compensation for excessive fluid losses(33) Extended stay beyond goal length of stay for primary condition may be needed until ALL of the following are present(3)(4)(5)(8): [ ]a) Renal function (creatinine) at baseline, or daily decreases in creatinine consistent with renal function return [ ]b) Voiding adequately or with urinary catheter or percutaneous suprapubic tube and management regimen in place that is performable at lower level of care. [ ]c) Urine output adequate [ ]d) Fever absent or resolving [ ]e) Infection absent or treatable at next level of care The original [employer] content created by [employer] has been revised. The portions of the content which have been revised are identified through the use of italic text or in bold, and [facility] has neither reviewed nor approved the modified material. All other unmodified content is copyright [employer] Please see references footnoted in the original [employer] edition 2016 Admission Criteria Met: Yes
[2016-05-11] MEDS ORDERED: HEPARIN IV PRN (16:45)
[2016-05-11] MEDS ORDERED: NON-FORMULARY (Insulin Glargine 10 UNITS) SUB-Q SCH (18:00)
[2016-05-11 18:20] LABS: Creatine Kinase MB 1.2 ng/mL (0.0-4.0)
[2016-05-11] MEDS: NEURONTIN PO SCH (22:09)
[2016-05-11] MEDS: LOPRESSOR PO SCH (22:10)
[2016-05-11] MEDS: KEPPRA PO SCH (22:11)
[2016-05-11] MEDS: LEVEMIR SUB-Q SCH (22:11)
[2016-05-11] MEDS: LOVENOX SUB-Q SCH (22:11)
[2016-05-12 04:11] LABS: Basophils % (Auto) 0.9 % (0.0-1.8); Eosinophils % (Auto) 3.2 % (0.0-4.3); Hematocrit 37.2 % (30.3-42.9); Mean Corpuscular HGB Conc 32 % (30-34); Mean Corpuscular Hemoglobin 30 pg (28-32); Mean Corpuscular Volume 94 fl (79-97); Platelet Count 229 K/mm3 (140-440); Red Blood Count 3.98 M/mm3 (3.65-5.03); Red Cell Distribution Width 16.4 % (13.2-15.2)
[2016-05-12 04:25] LABS: Albumin 3.6 g/dL (3.9-5); Albumin/Globulin Ratio 1.4 %; Bilirubin,Total 0.3 mg/dL (0.1-1.2); Calcium 8.1 mg/dL (8.4-10.2); Chloride 98.3 mmol/L (98-107); Potassium 3.4 mmol/L (3.6-5.0); Total Protein 6.1 g/dL (6.3-8.2)
--- NOTE | 2016-05-12 08:57 | Progress Note ---
Assessment and Plan - Patient Problems (1) ESRD (end stage renal disease) on dialysis Current Visit: Yes Status: Chronic Plan to address problem: S/P hemodialysis yesterday No acute indication for HD today Patient has a Right IJ perm-catheter Left AVF has not matured Fluid restriction of 1 liter per day Renally dose medications Obtain daily weights Will assess dialysis needs daily Renal plan reviewed with Dr. Shore. (2) Hypertension Current Visit: Yes Status: Acute Qualifiers: Hypertension type: H Plan to address problem: Stable on Metoprolol (3) Diabetes mellitus Current Visit: Yes Status: Acute Qualifiers: Diabetes mellitus type: D Diabetes mellitus complication status: D Diabetes mellitus complication detail: D Diabetic retinopathy severity: D Proliferative retinopathy type: P Diabetes mellitus macular edema: D Diabetes mellitus intermediate manager insulin use: D Laterality: L Chronic kidney disease stage: C Plan to address problem: Management as Per primary team (4) Chest pain Current Visit: Yes Status: Acute Qualifiers: Chest pain type: C Plan to address problem: S/P stress test yesterday Cardiology on board (5) Hypokalemia Current Visit: Yes Status: Acute Plan to address problem: KCL 10 meq po x 1 today Subjective Date of service: 05/12/16 Principal diagnosis: ESRD Interval history: Patient seen lying in bed and sleeping heavily. Opens eyes with deep tactile stimuli briefly then goes back to sleep. Objective - Vital Signs Vital signs: Vital Signs - 12hr 05/11/16 05/11/16 05/12/16 22:10 22:15 00:31 Temperature 98.2 F Pulse Rate 82 Pulse Rate [ 82 From Monitor] Pulse Rate [ Right Radial] Respiratory 18 Rate Blood Pressure 168/74 Blood Pressure 144/64 [Left Arm] Blood Pressure [Right Arm] O2 Sat by Pulse 100 100 Oximetry 05/12/16 05/12/16 05/12/16 04:00 04:52 07:27 Temperature 97.6 F 97.7 F Pulse Rate 66 Pulse Rate [ 88 From Monitor] Pulse Rate [ 61 Right Radial] Respiratory 18 16 Rate Blood Pressure Blood Pressure 138/68 [Left Arm] Blood Pressure 124/61 [Right Arm] O2 Sat by Pulse 100 98 Oximetry - General Appearance General appearance: well-developed, appears stated age EENT: ATNC, PERRL Neck: no JVD, supple Respiratory: Present: Clear to Ascultation Cardiology: regular, S1S2 Gastrointestinal: normoactive bowel sounds Integumentary: warm and dry Neurologic: other (Sleepy-opens eyes briefly to deep tactile stimuli. Has right IJ perm-catheter intact. Left AVF not matured.) Musculoskeletal: other - Lab 05/12/16 03:09 05/12/16 03:09 Most recent lab results Calcium 8.1 mg/dL (8.4-10.2) L 05/12/16 03:09 Phosphorus 3.0 mg/dL (2.5-4.5) 05/12/16 03:09
[2016-05-12] MEDS ORDERED: ECOTRIN PO SCH (10:00)
[2016-05-12] MEDS ORDERED: K-DUR PO ONE ×2 (10:00→13:00)
--- NOTE | 2016-05-12 11:39 | Progress Note ---
Assessment and Plan Chest pain in patient with h/o CAD s/p CABG MPI reveals fixed inferior-lateral defect suggesting prior [place] but no significant ischemia. ESRD Htn DM Recommend: Continue current therapy She will need outpatient cardiology f/u. Subjective Date of service: 05/12/16 Principal diagnosis: ESRD Interval history: No cardiac complaints. Objective Vital Signs Temp Pulse Pulse Pulse Resp BP BP 05/12/16 07:27 97.7 F 61 16 05/12/16 04:52 97.6 F 88 18 138/68 05/12/16 04:00 66 05/12/16 00:31 98.2 F 82 18 144/64 05/11/16 22:15 05/11/16 22:10 82 168/74 05/11/16 20:47 86 05/11/16 20:12 98.2 F 74 20 168/74 05/11/16 17:05 97.6 F 70 20 110/52 05/11/16 17:00 82 101/55 05/11/16 16:45 76 120/70 05/11/16 16:30 77 126/73 05/11/16 16:15 74 101/60 05/11/16 16:00 71 90/55 05/11/16 15:45 77 109/64 05/11/16 15:30 75 96/58 05/11/16 15:15 71 111/65 05/11/16 15:00 75 81/52 05/11/16 14:45 78 101/65 05/11/16 14:30 75 92/63 05/11/16 14:15 79 110/71 05/11/16 14:00 98.0 F 77 20 156/83 05/11/16 13:43 18 05/11/16 12:21 90 12 141/81 05/11/16 12:20 85 18 05/11/16 12:11 85 13 147/77 BP BP Pulse Ox 05/12/16 07:27 124/61 98 05/12/16 04:52 100 05/12/16 04:00 05/12/16 00:31 100 05/11/16 22:15 100 05/11/16 22:10 05/11/16 20:47 05/11/16 20:12 100 05/11/16 17:05 05/11/16 17:00 05/11/16 16:45 05/11/16 16:30 05/11/16 16:15 05/11/16 16:00 05/11/16 15:45 05/11/16 15:30 05/11/16 15:15 05/11/16 15:00 05/11/16 14:45 05/11/16 14:30 05/11/16 14:15 05/11/16 14:00 05/11/16 13:43 05/11/16 12:21 97 05/11/16 12:20 141/85 97 05/11/16 12:11 - Physical Examination HEENT: Positive: PERRL, EOMI Neck: Positive: neck supple. Negative: JVD/HJR Cardiac: Positive: Reg Rate and Rhythm Lungs: Positive: clear to auscultation Neuro: Positive: Grossly Intact Abdomen: Positive: Soft, Active Bowel Sounds Extremities: Absent: edema - Labs and Meds Cardiac Enzymes 05/11/16 05/12/16 Range/Units 17:38 03:09 AST 14 (5-40) units/L CK-MB (CK-2) 1.2 (0.0-4.0) ng/mL CBC 05/12/16 Range/Units 03:09 WBC 5.0 (4.5-11.0) K/mm3 RBC 3.98 (3.65-5.03) M/mm3 Hgb 12.0 (10.1-14.3) gm/dl Hct 37.2 (30.3-42.9) % Plt Count 229 (140-440) K/mm3 Lymph # 2.2 (1.2-5.4) K/mm3 [place] # 0.5 (0.0-0.8) K/mm3 Eos # 0.2 (0.0-0.4) K/mm3 Baso # 0.0 (0.0-0.1) K/mm3 Comprehensive Metabolic Panel 05/12/16 Range/Units 03:09 Sodium 139 (137-145) mmol/L Potassium 3.4 L D (3.6-5.0) mmol/L Chloride 98.3 (98-107) mmol/L Carbon Dioxide 26 (22-30) mmol/L BUN 11 (7-17) mg/dL Creatinine 2.2 H (0.7-1.2) mg/dL Glucose 147 H (65-100) mg/dL Calcium 8.1 L (8.4-10.2) mg/dL AST 14 (5-40) units/L ALT 9 (7-56) units/L Alkaline Phosphatase 103 (35-129) units/L Total Protein 6.1 L (6.3-8.2) g/dL Albumin 3.6 L (3.9-5) g/dL
[2016-05-12] MEDS ORDERED: PNEUMOVAX 23 IM ONE (12:00)
--- NOTE | 2016-05-12 12:58 | Discharge Summary ---
Providers - Providers Date of Admission: 05/11/16 09:12 Date of discharge: 05/12/16 Attending physician: PRABHA KWONG Primary care physician: CHICKEN SEXER Hospitalization Condition: Fair Hospital course: Discharge diagnosis; Chest pain in patient with h/o CAD s/p CABG MPI reveals fixed inferior-lateral defect suggesting prior [place] but no significant ischemia. Pt will need outpt follow up with cardiology ESRD on HD Htn, benign essential DM type 2 h/o CVA Disposition: DISCHARGED TO HOME OR SELFCARE Time spent for discharge: 32 minutes Core Measure Documentation - Palliative Care Palliative Care/ Comfort Measures: Not Applicable - Core Measures Any of the following diagnoses?: history only Exam - Constitutional Vitals: Temp Pulse Resp BP Pulse Ox 97.4 F L 63 16 144/74 100 05/12/16 11:46 05/12/16 11:46 05/12/16 11:46 05/12/16 11:46 05/12/16 11:46 General appearance: Present: no acute distress - EENT Eyes: Present: PERRL ENT: clear oral mucosa - Neck Neck: Present: supple, normal ROM - Respiratory Respiratory: bilateral: CTA - Cardiovascular Rhythm: regular Heart Sounds: Present: S1 & S2 - Extremities Extremities: no ischemia, No edema Peripheral Pulses: within normal limits - Abdominal General gastrointestinal: Present: soft, non-tender, non-distended - Integumentary Integumentary: Present: warm, dry - Psychiatric Psychiatric: intact judgment & insight Plan Activity: advance as tolerated, fall precautions Diet: diabetic, renal Follow up with: PRIMARY CARE, [Primary Care Provider] - 3-5 Days Prescriptions: Metoprolol [Lopressor TAB] 25 mg PO BID #60 tablet
[2016-05-12] MEDS: LOPRESSOR PO SCH (13:04)
[2016-05-12] MEDS: NEURONTIN PO SCH (13:05)
[2016-05-12] MEDS: KEPPRA PO SCH (13:05)
[2016-05-12] MEDS: LOVENOX SUB-Q SCH (13:05)
[2016-05-12 15:53] VITALS: BP 134/69
[2016-05-12] MEDS: LEVEMIR SUB-Q SCH (18:30)
--- NOTE | 2016-05-13 12:15 | Admit Criteria Form ---
Admission Criteria Documentation: CARDIOLOGY GRG Clinical Indications for Admission to Inpatient Care ( Place 'X' for any and all applicable criteria): Hospital admission is needed for appropriate care of the patient because of ANY ONE of the following (1): [ ] I. Hemodynamic instability as indicated by ALL of the following (1)(2)(3) (4)(5) [ ]a) Vital signs or other findings not as expected for chronic patient condition or baseline [ ]b) Instability indicated by ANY ONE of the following: [ ]i) Hypotension [ ]ii) Symptomatic Tachycardia unresponsive to treatment ( e.g., analgesia, fluids, sedation as indicated) [ ]iii) Inadequate perfusion indicated by ANY ONE of the following: [ ] 1) Lactic acidosis (> 2 mmol/L) [ ] 2) New abnormal capillary refill (> 3 seconds) [ ] 3) Reduced urine output [ ] 4) New altered mental status [ ]iv) Orthostatic vital sign changes unresponsive to treatment (e.g., fluids) [ ]v) IV inotropic or vasopressor medication required to maintain adequate blood pressure or perfusion [ ] II. Severe heart failure as indicated by ANY ONE of the following(17)(18) [ ]a) Respiratory distress [ ]b) Hypotension [ ]c) Anasarca (refractory to outpatient therapy) [ ]d) Cardiac arrhythmias of immediate concern [ ]e) Myocardial ischemia [ ] III. Cardiac arrhythmias or findings of immediate concern indicated by ANY ONE of the following (19)(20): [ ] a) Heart rhythms that are inherently dangerous or unstable indicated by ANY ONE of the following (21)(22)(23): [ ] i) Resuscitated ventricular fibrillation or cardiac arrest [ ] ii) Ventricular escape rhythm [ ] iii) Sustained ventricular tachycardia (30 seconds or more of ventricular rhythm at greater than 100 beats per minute) [ ] iv) Nonsustained ventricular tachycardia and ANY ONE of the following: [ ] 1) Suspected cardiac ischemia as cause or consequence of ventricular tachycardia [ ] 2) In setting of acute myocarditis [ ] b) Unstable cardiac conduction defects indicated by ANY ONE of the following(23)(24)(25) [ ] i) Type II second-degree atrioventricular block [ ]ii) Third-degree atrioventricular block [ ]iii) New-onset left bundle branch block with suspected myocardial ischemia [ ]c) Any heart rhythm and ANY ONE of the following (21)(22)(26)(27) (28) [ ] i) Continuous long-term ECG monitoring needed (e.g., initiation of drug requiring monitoring for more than 24 hours) [ ] ii) Patient has automatic implanted cardioverter defibrillator that is repeatedly firing, malfunctioning, or in need of immediate adjustment of settings beyond the scope of ambulatory or observation care [ ]d) Heart rhythms of concern due to ANY ONE of the following: [ ] i) Hypotension [ ] ii) Respiratory distress [ ] iii) Association with other significant symptoms (e.g., bradycardia with syncope or ongoing dizziness, supraventricular tachycardia with chest pain (14)(15)(17) [ ] IV. Monitoring for cardiac contusion beyond the scope of observation care needed [A](30)(31)(32) [ ] V. Surgical or device complication (e.g., valve replacement complication , pacemaker dysfunction) (35)(41)(44)(45)(46) [ ] . Inpatient palliative care needed. [B](49) Also use Inpatient Palliative Care Criteria [ ] VII. Nonbacterial thrombotic (marantic) endocarditis (36)(43)(47)(48) [X ] VIII. Cardiology condition, symptom, or finding for which emergency and observation care has failed or are not considered appropriate. [ ] IX. Acute valvular disease requiring inpatient as indicated by ANY ONE of the following (41) [ ]a) Acute valvular regurgitation (42) [ ]b) Noninfectious valvulitis (43) [ ]c) Obstructive valve thrombosis [ ]d) Paravalvular leak [ ]e) Other significant valvular disorder remaining after emergency or observation level of care (as appropriate) [ ]X. Pericardial disease requiring inpatient treatment as indicated by ANY ONE of the following (33)(34)(35)(36)(37) [ ]a) Suspected tamponade (38)(39)(40) [ ]b) Hemopericardium [ ]c) Other significant pericardial disorder remaining after emergency or observation level of care (as appropriate) [ ] XI. Cardiac ischemia beyond scope of emergency and observation care. [ ] XII. Hypertension requiring inpatient treatment as indicated by ANY ONE of the following (6)(7)(8) [ ]a) SBP greater than 220 mm Hg or DBP greater than 120 mmHg despite treatment [ ]b) SBP greater than 140 mm Hg or DBP greater than 100 mm Hg with evidence of acute end organ damage as indicated by ANY ONE of the following [ ] i) Altered mental status [ ] ii) Acute renal failure as indicated by new onset of ANY ONE of the following (9)(10)(11)(12)(13) [ ]1) 3-fold rise in serum creatinine from baseline [ ]2) Serum creatinine greater than 4 mg/dL ( 354 micromoles/L) with acute rise greater than 0.5 mg/dL (44.2 micromoles/L) [ ]3) Reduction of more than 75% in estimated glomerular filtration rate from baseline [ ]4) Estimated glomerular filtration rate less than 35 mL/min/1.73m2 (0.59 mL/sec/1.73m2) in child up to 18 years of age [ ]5) Cessation of urine output indicated by ALL of the following [ ]A. Adequate volume status [ ]B. Inadequate urine output as indicated by ANY ONE of the following [ ]a. Urine output less than 0.3 mL/kg/hr for 24 hours [ ]b. Anuria (urine output less than 0.1 mL/kg/hr) for 12 hours [ ] iii) Aortic dissection [ ] iv) Myocardial Ischemia [ ] v) Left ventricular heart failure [ ]vi) Retinal Hemorrhage [ ]vii) Other significant finding [ ]c) Hypertension in child requiring inpatient treatment as indicated by ALL of the following(14)(15)(16) [ ] i) Outpatient treatment not effective, not available, or not appropriate [ ]ii) SBP or DBP greater than 95th percentile for age [ ]iii) Evidence of acute end organ damage as indicated by ANY ONE of the following [ ]1) Altered mental status [ ]2) Acute renal failure as indicated by new onset of ANY ONE of the following(9)(10)(11)(12)(13) [ ]A. 3-fold rise in serum creatinine from baseline [ ]B. Serum creatinine greater than 4 mg/dL (354 micromoles/L) with acute rise greater than 0.5 mg/dL (44.2 micromoles/L) [ ]C. Reduction of more than 75% in estimated glomerular filtration rate from baseline [ ]D. Estimated glomerular filtration rate less than 35 mL/min/1.73m2 (0.59 mL/sec/1.73m2) in child up to 18 years of age [ ]E. Cessation of urine output indicated by ALL of the following [ ]a. Adequate volume status [ ]b. Inadequate urine output as indicated by ANY ONE of the following [ ]i) Urine output less than 0.3 mL/kg/hr for 24 hours [ ]ii) Anuria ( urine output less than 0.1 mL/kg/hr) for 12 hours [ ]3) Severe headache [ ]4) Visual disturbance [ ]5) Retinal hemorrhage [ ]6) Other significant finding [ ]XIII. Complications of transplanted heart indicated by ANY ONE of the following(61): [ ]a) Acute graft rejection requiring inpatient management (eg, intravenous immunosuppression)(62)(63) [ ]b) Acute graft heart failure indicated by ANY ONE of the following(64): [ ]i) Hemodynamic instability [ ]ii) Cardiac arrhythmias of immediate concern [ ]iii) Pulmonary edema that is very severe (eg, mechanical ventilation needed, imminent or likely, need for 100% oxygen to keep oxygen saturation above 90%) [ ]iv) Pulmonary edema that is persistent as indicated by ALL of the following: [ ]1) New need for oxygen therapy to keep oxygen saturation above 90% (or increased FiO2 need from baseline) [ ]2) Has not improved sufficiently with emergency department or observation care IV diuretics or other heart failure treatments[E] [ ]v) Altered mental status that is severe or persistent [ ]vi) Increased creatinine (new on laboratory test) with reduction of more than 50% in estimated glomerular filtration rate from baseline [ ]vii) Progressively (ongoing) rising creatinine (known from past laboratory test) with reduction of more than 25% in estimated glomerular filtration rate from baseline [ ]viii) Acute renal failure [ ]ix) Acute peripheral ischemia (eg, examination shows pulseless, cool, mottled, or cyanotic extremity) [ ]x) Pulmonary artery catheter monitoring needed [ ]xi) Other sign or symptom of heart failure requiring inpatient treatment (ie, too severe or not responsive to outpatient and observation care treatment) [ ]c) Infection requiring inpatient management (eg, Hemodynamic instability, need for intravenous antimicrobial treatment)(66)(67)(68)(69)(70) [ ]d) Cardiac allograft vasculopathy requiring inpatient management ( eg evidence of cardiac ischemia)(71) [ ]e) Other complication of transplanted heart (eg, stroke, severe pulmonary hypertension, severe valvular dysfunction) requiring inpatient management(72) The original [facility] [employer] content created by [employer] has been revised. The portions of the content which have been revised are identified through the use of italic text or in bold, and [facility] has neither reviewed nor approved the modified material. All other unmodified content is copyright [facility] [employer]. Please see references footnoted in the original [facility] [employer] edition 2016 Admission Criteria Met: Yes
--- NOTE | 2016-05-13 23:58 | Treadmill Report ---
THALLIUM STRESS TEST LEFT VENTRICLE: Left ventricular chamber size is within normal. Perfusion study demonstrates a small fixed basal inferior defect with no reversibility on the resting study. Gated analysis demonstrates normal left ventricular systolic function, ejection fraction 62%. CONCLUSION: Small fixed basal inferior defect of uncertain significance. Cannot exclude diaphragmatic attenuation artifact versus prior basal inferior infarct. There is no reversible ischemia on this study. Clinical correlation is recommended. [facility]# [id number] [place]/NTS
--- NOTE | 2016-05-15 08:58 | Query- Chest Pain ---
Deakathleen Asencio Date:_05/15/16 Home Health Care Worker/CDS:Mary/Winston Self Phone#:_[phone]____ Exercise your independent professional judgment when responding to query. Questions asked do not imply a particular answer is desired or expected. We greatly appreciate your clarification on this issue. Clinical Documentation States: 60 Y/O Female admitted on 05/11/16 with History of ESRD on hemodialysis, HTN, DM , and CAD presented with chest pain and abdominal pain. Clinical Findings Show: EF: 62%, small fixed basal inferior defect of uncertain significance. inferior infarct, age undetermined Please document the etiology of Chest Pain: [ ] Myocardial Infarction [ ] Pneumonia [ ] Mediastinitis [ x] Costochondritis [ ] Pulmonary Embolism [ ] Coronary Artery Disease [ ] GERD [ ] Other: [ ] Comment/Explanation: Present on Admission: [x ] Yes (Y) [ ] Clinically undeterminable (W) [ ] No(N) Please document response in your Progress Notes and/or Discharge Summary and indicate if the condition was present on admission. BERNADETTE
== END 2016-05-12 20:14 | disposition home or self-care (01) | DRG 205 ==
LOC: ED 22:30 → 4A 05-11 09:12
PROVIDERS: ADMIT Internal Medicine; ATTEND Internal Medicine
PROC: 5A1D00Z (ICD-10-PCS; principal; 2016-05-11)
DX: M94.0 Chondrocostal junction syndrome [Tietze] (principal); N18.6 End stage renal disease; I12.0 Hypertensive chronic kidney disease with stage 5 chronic kidney disease or end stage renal disease; Z99.2 Dependence on renal dialysis; I25.10 Atherosclerotic heart disease of native coronary artery without angina pectoris; Z95.1 Presence of aortocoronary bypass graft; Z88.8 Allergy status to other drugs, medicaments and biological substances; Z79.4 Long term (current) use of insulin; Z86.73 Personal history of transient ischemic attack (TIA), and cerebral infarction without residual deficits; E11.22 Type 2 diabetes mellitus with diabetic chronic kidney disease; E87.6 Hypokalemia
CPT/HCPCS: 36415; 71010; 78452; 80053; 80061; 81001; 82550; 82553; 82962; 83690; 84100; 84484; 85025; 87086; 90732; 93005; 93010; 93017; 96374; 96375; A9270-GY; A9502; J0696; J1644; J1650; J1818; J2785; J7030

== ENCOUNTER 2016-09-18 14:22 | Inpatient (IN) | payer MEDICARE ==
--- NOTE | 2016-09-18 15:12 | XRay Report ---
AP CHEST: HISTORY: Weakness AP view of the chest demonstrates a normal mediastinal and cardiac contour with clear lungs and normal bony and soft tissue structures. Right venous catheter is unchanged since 05/11/16. No acute cardiopulmonary process.
[2016-09-18 16:20] LABS: Albumin 3.4 g/dL (3.9-5); Albumin/Globulin Ratio 0.9 %; BUN/Creatinine Ratio 26.19; Bilirubin,Total 0.3 mg/dL (0.1-1.2); Calcium 9.3 mg/dL (8.4-10.2); Chloride 114.8 mmol/L (98-107); Total Protein 7.4 g/dL (6.3-8.2)
--- NOTE | 2016-09-18 16:35 | Emergency Department Report ---
ED General Adult HPI - General Chief complaint: Weakness Stated complaint: LOW B/P Time Seen by Provider: 09/18/16 16:21 Source: patient, family, EMS, RN notes reviewed, old records reviewed Mode of arrival: Stretcher Limitations: Altered Mental Status, Physical Limitation - History of Present Illness Initial comments: This is a 61-year-old female. She is previously unknown to me. She has a past medical history of renal insufficiency, but is not currently on dialysis as per family. Primary care Dr.: Dr. Wilson Nephrology: Dr. Anderson Other past medical history includes hypertension, diabetes, heart disease, possible borderline dementia. The patient is brought to the hospital by family and EMS for weakness. As per EMS documentation, patient was found to be hypotensive with a blood pressure 60 over palpable at 1:30 PM today. This resolved with IV fluids. As per family report, the patient has become more forgetful, weak and has had increased difficulty with completing activities of daily living. They also report increasing dysphagia when the patient chews/swallows food and ingestion medications. No headache, neck pain, chest pain, abdominal pain or shortness of breath. There is no hematemesis or bright red blood per rectum. The symptoms are constant. They're worsening. They have no exacerbating or relieving factors. As per the patient's sister, who supplies all of the history, patient was recently taken off insulin, started on glyburide by her nephrology specialist. The patient herself is unable to contribute to exacerbating or relieving factors. -: Gradual Consistency: constant Improves with: none Worsens with: none Associated Symptoms: malaise, weakness - Related Data Home Medications Medication Instructions Recorded Confirmed Last Taken Gabapentin [Neurontin] 300 mg PO DAILY 07/25/14 09/18/16 03/21/16 19:00 levETIRAcetam [Keppra TAB] 500 mg PO BID 02/23/16 09/18/16 03/21/16 19:00 Clopidogrel Bisulfate [Clopidogrel] 75 mg PO DAILY 03/22/16 09/18/16 03/21/16 19 :00 Vitamin D 50,000 units PO 1XW 03/22/16 09/18/16 05/05/16 10:00 Carvedilol [Coreg] 25 mg PO BID 09/18/16 09/18/16 Unknown Lisinopril [Zestril] 5 mg PO QDAY 09/18/16 09/18/16 Unknown glipiZIDE [Glucotrol] 5 mg PO QDAY 09/18/16 09/18/16 Unknown Allergies Allergy/AdvReac Type Severity Reaction Status Date / Time Tetracyclines AdvReac Unknown Verified 09/26/14 12:09 ED Review of Systems ROS: Stated complaint: LOW B/P Other details as noted in HPI Constitutional: malaise, weakness Eyes: denies: vision change ENT: denies: epistaxis Respiratory: see HPI Cardiovascular: as per HPI Gastrointestinal: as per HPI (history of dysphasia) Genitourinary: as per HPI Musculoskeletal: as per HPI Skin: as per HPI Neurological: weakness, confusion Psychiatric: as per HPI ED Past Medical Hx - Past Medical History Previous Medical History?: Yes Hx Hypertension: Yes (X 15 YRS) Hx CVA: Yes Hx Heart Attack/AMI: Yes (Triple bypass 2008) Hx Congestive Heart Failure: (pt denies being diagnosed) Hx Diabetes: Yes Hx GERD: Yes Hx Renal Disease: Yes Hx Arthritis: Yes Hx Headaches / Migraines: Yes (MIGRAINES) Hx Seizures: Yes (LAST SEIZURE 09/2015) Hx Dementia: Yes Additional medical history: triple bypass 2008 - Surgical History Past Surgical History?: Yes Hx Open Heart Surgery: Yes (CABG 2008) Additional Surgical History: triple bypass 2008 - Social History Smoking Status: Never Smoker Substance Use Type: None - Medications Home Medications: Home Medications Medication Instructions Recorded Confirmed Last Taken Type Gabapentin [Neurontin] 300 mg PO DAILY 07/25/14 09/18/16 03/21/16 19:00 History levETIRAcetam [Keppra TAB] 500 mg PO BID 02/23/16 09/18/16 03/21/16 19:00 History Clopidogrel Bisulfate [Clopidogrel] 75 mg PO DAILY 03/22/16 09/18/16 03/21/16 19 :00 History Vitamin D 50,000 units PO 1XW 03/22/16 09/18/16 05/05/16 10:00 History Carvedilol [Coreg] 25 mg PO BID 09/18/16 09/18/16 Unknown History Lisinopril [Zestril] 5 mg PO QDAY 09/18/16 09/18/16 Unknown History glipiZIDE [Glucotrol] 5 mg PO QDAY 09/18/16 09/18/16 Unknown History ED Physical Exam - General Limitations: Altered Mental Status, Physical Limitation General appearance: in no apparent distress - Head Head exam: Present: atraumatic, normocephalic - Eye Eye exam: Present: normal appearance, PERRL, EOMI. Absent: nystagmus - ENT ENT exam: Present: normal exam, normal orophraynx, mucous membranes moist, normal external ear exam - Neck Neck exam: Present: normal inspection, full ROM. Absent: tenderness, meningismus - Respiratory Respiratory exam: Present: normal lung sounds bilaterally, other (there is a right-sided thoracic wall dialysis access catheter, with no redness, pus or streaking). Absent: respiratory distress, wheezes, rales, rhonchi, stridor, chest wall tenderness, accessory muscle use, decreased breath sounds, prolonged expiratory - Cardiovascular Cardiovascular Exam: Present: regular rate, normal rhythm, normal heart sounds. Absent: bradycardia, tachycardia, irregular rhythm, systolic murmur, diastolic murmur, rubs, gallop - GI/Abdominal GI/Abdominal exam: Present: soft, normal bowel sounds. Absent: distended, tenderness, guarding, rebound, rigid, pulsatile mass - Rectal Rectal exam: Present: normal inspection, normal rectal tone, heme (-) stool, other (escorted by nurse Sylvia Bhatia) - Extremities Exam Extremities exam: Present: normal inspection, full ROM, normal capillary refill. Absent: pedal edema, joint swelling, calf tenderness - Back Exam Back exam: Present: normal inspection, full ROM. Absent: tenderness, CVA tenderness (R), CVA tenderness (L), muscle spasm, paraspinal tenderness, vertebral tenderness - Neurological Exam Neurological exam: Present: alert (patient is alert to name. She is able to identify her sister. She follows commands.), altered, other (Extraocular movements intact. Tongue midline. No facial droop. Facial sensation intact to light touch in the V1, V2, V3 distribution bilaterally. 5 and 5 strength in 4 extremities.. Sensation is intact to light touch in 4 extremities.). Absent : normal gait (unable to walk alone or with a one-person assist), motor sensory deficit - Psychiatric Psychiatric exam: Present: normal affect, normal mood - Skin Skin exam: Present: warm, dry, intact, normal color. Absent: rash ED Course Vital Signs 09/18/16 09/18/16 09/18/16 14:24 14:30 14:34 Temperature 97.7 F Pulse Rate 82 82 Respiratory 15 10 L Rate Blood Pressure 158/71 155/63 O2 Sat by Pulse 100 100 100 Oximetry 09/18/16 09/18/16 09/18/16 14:40 14:50 15:00 Temperature Pulse Rate 84 86 87 Respiratory 10 L 9 L 14 Rate Blood Pressure 158/71 140/80 140/80 O2 Sat by Pulse 99 100 100 Oximetry 09/18/16 09/18/16 09/18/16 15:10 15:12 15:20 Temperature Pulse Rate 87 84 Respiratory 11 L 14 11 L Rate Blood Pressure 140/80 135/71 O2 Sat by Pulse 100 100 100 Oximetry 09/18/16 09/18/16 09/18/16 15:30 15:40 15:50 Temperature Pulse Rate 84 83 85 Respiratory 9 L 12 12 Rate Blood Pressure 132/73 132/73 150/78 O2 Sat by Pulse 100 99 98 Oximetry 09/18/16 09/18/16 09/18/16 16:00 16:10 16:20 Temperature Pulse Rate 84 84 83 Respiratory 13 9 L 12 Rate Blood Pressure 150/78 150/78 140/78 O2 Sat by Pulse 99 99 99 Oximetry 09/18/16 09/18/16 09/18/16 16:30 16:40 16:58 Temperature Pulse Rate 83 82 81 Respiratory 10 L 11 L 11 L Rate Blood Pressure 140/78 140/78 140/78 O2 Sat by Pulse 99 100 99 Oximetry 09/18/16 09/18/16 09/18/16 17:00 17:10 17:20 Temperature Pulse Rate 84 82 82 Respiratory 9 L 9 L 10 L Rate Blood Pressure 140/78 148/70 148/70 O2 Sat by Pulse 99 99 100 Oximetry 09/18/16 09/18/16 09/18/16 17:30 17:40 17:50 Temperature Pulse Rate 82 80 80 Respiratory 9 L 10 L 9 L Rate Blood Pressure 148/70 140/78 140/78 O2 Sat by Pulse 100 100 99 Oximetry 09/18/16 09/18/16 09/18/16 18:00 18:10 18:20 Temperature Pulse Rate 80 79 81 Respiratory 9 L 10 L 9 L Rate Blood Pressure 140/78 125/66 125/66 O2 Sat by Pulse 100 99 100 Oximetry 09/18/16 09/18/16 09/18/16 18:32 18:41 19:00 Temperature Pulse Rate 82 81 83 Respiratory 9 L 10 L 10 L Rate Blood Pressure 125/66 125/66 125/66 O2 Sat by Pulse 99 99 99 Oximetry 09/18/16 09/18/16 09/18/16 19:31 20:00 20:31 Temperature Pulse Rate 80 81 79 Respiratory 11 L 10 L 10 L Rate Blood Pressure 98/74 125/66 98/74 O2 Sat by Pulse 99 99 99 Oximetry - Reevaluation(s) Reevaluation #1: 09/18/16 17:33 differential diagnosis: Dementia, pneumonia, urinary tract infection, medication side effect, failure to thrive, chronic renal insufficiency Assessment and plan: 61-year-old female with resultant hypotension, guaiac- negative, chronic renal insufficiency, laboratory studies did demonstrate elevated free T4, and decreased TSH, however her clinical picture is not consistent with hyperthyroidism. Chest x-ray not consistent with pneumonia. Urinalysis suggests bacteriuria, she will be given Macrobid for possible urinary tract infection. EKG morphologically abnormal, appears unchanged from prior. Given unexplained hypotension, patient to be admitted to the hospital for evaluation, observation, and titration of her antihypertensive therapies. Symptoms have been going on for more than 4.5 hours, therefore she is not a TPA candidate, and she has an NIH score of 0 at this time. Dysphasia sounds chronic clinically, I will defer to the inpatient team to further evaluate this. Macrobid is ordered, assuming the patient can pass a swallow screen, and the case is presented to the hospital physician, Dr. Shah, who accepts the patient to his service. Elevated BNP is appreciated, however the patient's lungs are clear to auscultation, this is most likely chronic and secondary to her underlying renal insufficiency, she is not volume overloaded acutely. ED Medical Decision Making - Lab Data Result diagrams: 09/18/16 19:19 09/19/16 07:45 Vital Signs 09/18/16 09/18/16 09/18/16 14:24 14:30 14:34 Temperature 97.7 F Pulse Rate 82 82 Respiratory 15 10 L Rate Blood Pressure 158/71 155/63 O2 Sat by Pulse 100 100 100 Oximetry 09/18/16 09/18/1617 14:40 14:50 15:00 Temperature Pulse Rate 84 86 87 Respiratory 10 L 9 L 14 Rate Blood Pressure 158/71 140/80 140/80 O2 Sat by Pulse 99 100 100 Oximetry 09/18/16 15:12 Temperature Pulse Rate Respiratory 14 Rate Blood Pressure O2 Sat by Pulse 100 Oximetry Lab Results 09/18/16 09/18/16 09/18/16 Range/Units 15:40 15:40 15:40 WBC 5.3 (4.5-11.0) K/mm3 RBC 4.32 (3.65-5.03) M/mm3 Hgb 12.4 (10.1-14.3) gm/dl Hct 40.3 (30.3-42.9) % MCV 93 (79-97) fl MCH 29 (28-32) pg MCHC 31 (30-34) % RDW 14.7 (13.2-15.2) % Plt Count 181 (140-440) K/mm3 Sodium 146 H (137-145) mmol/L Potassium 5.0 (3.6-5.0) mmol/L Chloride 114.8 H (98-107) mmol/L Carbon Dioxide 18 L (22-30) mmol/L Anion Gap 18 mmol/L BUN 55 H (7-17) mg/dL Creatinine 2.1 H (0.7-1.2) mg/dL Estimated GFR 29 ml/min BUN/Creatinine Ratio 26.19 % Glucose 183 H (65-100) mg/dL Calcium 9.3 (8.4-10.2) mg/dL Total Bilirubin 0.30 (0.1-1.2) mg/dL AST 10 (5-40) units/L ALT 9 (7-56) units/L Alkaline Phosphatase 105 (35-129) units/L Troponin T (0.00-0.029) ng/mL NT-Pro-B Natriuret Pep 1254 H (0-900) pg/mL Total Protein 7.4 (6.3-8.2) g/dL Albumin 3.4 L (3.9-5) g/dL Albumin/Globulin Ratio 0.9 % TSH 0.020 L (0.270-4.200) mlU/mL Free T4 (0.76-1.46) ng/dL Urine Color (Yellow) Urine Turbidity (Clear) Urine pH (5.0-7.0) Ur Specific [place] (1.003-1.030) Urine Protein (Negative) mg/dL Urine Glucose (UA) (Negative) mg/dL Urine Ketones (Negative) mg/dL Urine Blood (Negative) Urine Nitrite (Negative) Urine Bilirubin (Negative) Urine Urobilinogen (<2.0) mg/dL Ur Leukocyte Esterase (Negative) Urine WBC (Auto) (0.0-6.0) /HPF Urine RBC (Auto) (0.0-6.0) /HPF Urine Bacteria (Auto) (Negative) /HPF Hyaline Casts /LPF Urine Mucus /HPF 09/18/16 09/18/16 09/18/16 Range/Units 15:57 16:41 16:41 WBC (4.5-11.0) K/mm3 RBC (3.65-5.03) M/mm3 Hgb (10.1-14.3) gm/dl Hct (30.3-42.9) % MCV (79-97) fl MCH (28-32) pg MCHC (30-34) % RDW (13.2-15.2) % Plt Count (140-440) K/mm3 Sodium (137-145) mmol/L Potassium (3.6-5.0) mmol/L Chloride (98-107) mmol/L Carbon Dioxide (22-30) mmol/L Anion Gap mmol/L BUN (7-17) mg/dL Creatinine (0.7-1.2) mg/dL Estimated GFR ml/min BUN/Creatinine Ratio % Glucose (65-100) mg/dL Calcium (8.4-10.2) mg/dL Total Bilirubin (0.1-1.2) mg/dL AST (5-40) units/L ALT (7-56) units/L Alkaline Phosphatase (35-129) units/L Troponin T < 0.010 (0.00-0.029) ng/mL NT-Pro-B Natriuret Pep (0-900) pg/mL Total Protein (6.3-8.2) g/dL Albumin (3.9-5) g/dL Albumin/Globulin Ratio % TSH (0.270-4.200) mlU/mL Free T4 3.20 H (0.76-1.46) ng/dL Urine Color Yellow (Yellow) Urine Turbidity Clear (Clear) Urine pH 5.0 (5.0-7.0) Ur Specific [place] 1.018 (1.003-1.030) Urine Protein 100 mg/dl (Negative) mg/dL Urine Glucose (UA) 50 (Negative) mg/dL Urine Ketones Neg (Negative) mg/dL Urine Blood Neg (Negative) Urine Nitrite Neg (Negative) Urine Bilirubin Neg (Negative) Urine Urobilinogen < 2.0 (<2.0) mg/dL Ur Leukocyte Esterase Neg (Negative) Urine WBC (Auto) < 1.0 (0.0-6.0) /HPF Urine RBC (Auto) 1.0 (0.0-6.0) /HPF Urine Bacteria (Auto) 2+ (Negative) /HPF Hyaline Casts 1 /LPF Urine Mucus Few /HPF - EKG Data -: EKG Interpreted by Me EKG shows normal: sinus rhythm Rate: normal - EKG Data When compared to previous EKG there are: no significant change Interpretation: unchanged when compared t 09/18/16 17:36 normal sinus, 83 bpm, borderline left axis deviation, poor R- wave progression, Q waves noted in the inferior leads, abnormal EKG, not morphologically consistent with STEMI, appears unchanged when compared to prior EKG from April 2016. - Radiology Data Radiology results: report reviewed, image reviewed interpreted by me: X-ray of the chest is negative. Status post median sternotomy. Right-sided dialysis access catheter is noted. \ Noncontrast CT scan of the brain is negative for acute disease Critical care attestation.: If time is entered above; I have spent that time in minutes in the direct care of this critically ill patient, excluding procedure time. ED Disposition Clinical Impression: Chronic kidney disease (CKD), Hypokalemia Altered mental status Qualifiers: Altered mental status type: unspecified Qualified Code(s): R41.82 - Altered mental status, unspecified Disposition: DC-09 OP ADMIT IP TO THIS HOSP Is pt being admited?: Yes Condition: Fair
[2016-09-18 16:37] LABS: Bacteria,Urine 2+ /HPF (Negative); Bilirubin,Urine NEG (Negative); Blood,Urine NEG (Negative); Ketones,Urine NEG (Negative); Leukocyte Esterase,Urine NEG (Negative); Mucus,Urine FEW /HPF; Nitrite,Urine NEG (Negative); Urobilinogen,Urine < 2.0 mg/dL (<2.0); WBC,Urine < 1.0 /HPF (0.0-6.0)
[2016-09-18 16:48] LABS: Mean Corpuscular HGB Conc 31 % (30-34); Mean Corpuscular Hemoglobin 29 pg (28-32); Mean Corpuscular Volume 93 fl (79-97); Platelet Count 181 K/mm3 (140-440); Red Blood Count 4.32 M/mm3 (3.65-5.03); Red Cell Distribution Width 14.7 % (13.2-15.2); White Blood Count 5.3 K/mm3 (4.5-11.0)
[2016-09-18 16:51] LABS: Hematocrit 40.3 % (30.3-42.9); Hemoglobin 12.4 gm/dl (10.1-14.3)
--- NOTE | 2016-09-18 17:35 | History and Physical Report ---
History of Present Illness Chief complaint: weak, low blood pressure History of present illness: 61 YO Female with Dementia, HTN, CVA, [place], CAD, Seizure, OA, DM presents to ED for evaluation. Pt unable to provide dietailed history. History taken from ED staff, and family. Pt family states that pt has gotten progressively weak and confused over the past month. Pt found to have a low blood pressure as per family. EMS notified and patient transported to [facility] for evaluation. As per EMS documentation, patient was found to be hypotensive with a systolic blood pressure in the 60's. Pt treated with IVF with improvement. No reports of fever , chills, headache, neck pain, chest pain, abdominal pain or shortness of breath , NVD, or recent ill contacts. Pt seen and evaluated in Ed and found to have suprapubic tenderness, and ble edema. Past History Past Medical History: acute [place], CAD, diabetes, hypertension, seizures, stroke Past Surgical History: CABG Social history: single, lives with family. denies: smoking, alcohol abuse, prescription drug abuse Family history: hypertension Medications and Allergies Allergies Allergy/AdvReac Type Severity Reaction Status Date / Time Tetracyclines AdvReac Unknown Verified 09/26/14 12:09 Home Medications Medication Instructions Recorded Confirmed Last Taken Type Gabapentin [Neurontin] 300 mg PO DAILY 07/25/14 09/18/16 03/21/16 19:00 History levETIRAcetam [Keppra TAB] 500 mg PO BID 02/23/16 09/18/16 03/21/16 19:00 History Clopidogrel Bisulfate [Clopidogrel] 75 mg PO DAILY 03/22/16 09/18/16 03/21/16 19 :00 History Vitamin D 50,000 units PO 1XW 03/22/16 09/18/16 05/05/16 10:00 History Carvedilol [Coreg] 25 mg PO BID 09/18/16 09/18/16 Unknown History Lisinopril [Zestril] 5 mg PO QDAY 09/18/16 09/18/16 Unknown History glipiZIDE [Glucotrol] 5 mg PO QDAY 09/18/16 09/18/16 Unknown History Review of Systems ROS unobtainable: due to mental status Exam - Constitutional Vitals: Temp Pulse Resp BP Pulse Ox 97.7 F 87 14 140/80 100 09/18/16 14:34 09/18/16 15:00 09/18/16 15:12 09/18/16 15:00 09/18/16 15:12 General appearance: Present: mild distress - EENT Eyes: Present: PERRL ENT: hearing intact, clear oral mucosa - Respiratory Respiratory: bilateral: diminished - Cardiovascular Heart Sounds: Present: S1 & S2. Absent: rub, click - Extremities Extremities: pulses symmetrical, No edema Extremity abnormal: edema Peripheral Pulses: within normal limits - Abdominal General gastrointestinal: Present: soft, non-tender, non-distended, normal bowel sounds Female genitourinary: Present: normal - Integumentary Integumentary: Present: clear, dry, decreased turgor - Musculoskeletal Musculoskeletal: generalized weakness - Psychiatric Psychiatric: no intact judgment & insight, no memory intact - Neurologic Neurologic: no gait normal Results - Labs CBC & Chem 7: 09/18/16 19:19 09/18/16 19:19 Labs: Abnormal lab results 09/18/16 09/18/16 09/18/16 Range/Units 15:40 15:40 16:41 Sodium 146 H (137-145) mmol/L Chloride 114.8 H (98-107) mmol/L Carbon Dioxide 18 L (22-30) mmol/L BUN 55 H (7-17) mg/dL Creatinine 2.1 H (0.7-1.2) mg/dL Glucose 183 H (65-100) mg/dL NT-Pro-B Natriuret Pep 1254 H (0-900) pg/mL Albumin 3.4 L (3.9-5) g/dL TSH 0.020 L (0.270-4.200) mlU/mL Free T4 3.20 H (0.76-1.46) ng/dL Assessment and Plan - Patient Problems (1) UTI (urinary tract infection) Current Visit: Yes Status: Acute Qualifiers: Urinary tract infection type: U Hematuria presence: H Indwelling urinary catheter type: I Encounter type: E Plan to address problem: IV abx, ivf, supportive care. (2) ARF (acute renal failure) Current Visit: Yes Status: Acute Qualifiers: Acute renal failure type: A Plan to address problem: IVF replacement, monitor uop q shift, (3) CHF (congestive heart failure) Current Visit: Yes Status: Acute Qualifiers: Congestive heart failure type: diastolic Congestive heart failure chronicity: C Plan to address problem: Echo, supportive care, telemetry, serial cardiac enzymes, (4) Metabolic acidemia Current Visit: Yes Status: Acute Plan to address problem: IVF replacement, supportive care. (5) DVT prophylaxis Current Visit: Yes Status: Acute
[2016-09-18] MEDS ORDERED: MACROBID PO ONE (17:37)
[2016-09-18] MEDS ORDERED: NACL 0.9% 250ML 250 ML IV ONE (17:38)
[2016-09-18] MEDS ORDERED: DULCOLAX PR PRN (18:45)
[2016-09-18] MEDS ORDERED: DUONEB *Not for PRN Use IH (18:45)
[2016-09-18] MEDS ORDERED: MILK OF MAGNESIA PO PRN (18:45)
[2016-09-18] MEDS ORDERED: ZOFRAN IV PRN (18:45)
[2016-09-18] MEDS ORDERED: TYLENOL PO PRN (18:45)
[2016-09-18] MEDS ORDERED: SODIUM CHLORIDE FLUSH SYRINGE 10 ML IV PRN (18:48)
--- NOTE | 2016-09-18 18:48 | Cat Scan Report ---
FINAL REPORT PROCEDURE: CT HEAD/BRAIN WO CON TECHNIQUE: Computerized tomography of the head was performed without contrast material. HISTORY: weakness, altered mental status, dysphagia COMPARISON: 09/03/2015 FINDINGS: There are minimal involutional changes, with prominence of the ventricles and the sulci. There are mild patchy white matter low attenuation areas, compatible with chronic microvascular ischemic changes. Right basal ganglia chronic appearing lacunar infarct. No CT evidence of intracranial mass, hemorrhage, acute territorial infarction, or hydrocephalus. The intracranial arteries are symmetric in density. Calvarium is intact. Trace bilateral ethmoid sinus mucosal thickening. Mastoids are aerated IMPRESSION: Minimal ethmoid sinus disease. No CT evidence of acute intracranial abnormality
[2016-09-18] MEDS ORDERED: PROVENTIL IH PRN (18:53)
[2016-09-18] MEDS ORDERED: BABY ASPIRIN PO ONE (19:00)
[2016-09-18] MEDS ORDERED: VITAMIN D 50000 UNIT PO SCH (19:00)
[2016-09-18 20:01] LABS: Basophils % (Auto) 0.7 % (0.0-1.8); Eosinophils % (Auto) 2.3 % (0.0-4.3); Hematocrit 36.5 % (30.3-42.9); Hemoglobin 11.9 gm/dl (10.1-14.3); Mean Corpuscular HGB Conc 33 % (30-34); Mean Corpuscular Hemoglobin 30 pg (28-32); Mean Corpuscular Volume 91 fl (79-97); Platelet Count 199 K/mm3 (140-440); Red Blood Count 4.02 M/mm3 (3.65-5.03); Red Cell Distribution Width 14.4 % (13.2-15.2); White Blood Count 5.2 K/mm3 (4.5-11.0)
[2016-09-18 20:06] LABS: BUN/Creatinine Ratio 23.91; Calcium 9.2 mg/dL (8.4-10.2); Potassium 4.9 mmol/L (3.6-5.0)
[2016-09-18] MEDS ORDERED: BABY ASPIRIN ONE (21:01)
[2016-09-18] MEDS: KEPPRA PO SCH (21:49)
[2016-09-18] MEDS: COREG PO SCH (21:50)
[2016-09-19 08:26] LABS: Calcium 8.8 mg/dL (8.4-10.2); Chloride 114.4 mmol/L (98-107); Potassium 4.6 mmol/L (3.6-5.0)
--- NOTE | 2016-09-19 09:11 | Admit Criteria Form ---
Admission Criteria Documentation: RENAL FAILURE, CHRONIC Clinical Indications for Admission to Inpatient Care (Place 'X' for any and all applicable criteria): Admission is indicated for ANY ONE of the following (1)(2)(3)(4)(5): [X]I. Inpatient admission required rather than observation care (Use Renal Failure, Chronic: Observation Care Criteria as appropriate) because of ANY ONE of the following: [ ]a) Volume overload or uremic symptoms (eg, clinically significant pulmonary edema, hypertension, pericarditis, acidosis) too severe for, or not responsive (eg, for over 24 hours) to emergency department or observation care dialysis or treatment regimen (11) [ ]b) Hemodynamic instability that is severe or persistent [ ]c) Respiratory distress that is severe or persistent (11) [ ]d) Clinically significant electrolyte abnormality that requires inpatient care (eg,hyperkalemia with severe ECG findings)[B] [ ]e) Supplement O2 or respiratory therapy for over 24hrs that is performable only in acute inpatient setting [ ]f) Continuous IV infusion of anticoagulation, platelet inhibitor, vasoactive, or Antiarrhythmic medication (15), [ ]g) Pulmonary artery catheter monitoring [ ]h) Temporary pacemaker placement [ ]i) Emergent pericardiocentesis [X]j) Other condition, treatment or monitoring requiring inpatient admission [ ]II. Unexplained syncope [A] [ ]III. Recurrent seizures [ ]IV. Severe infections not treatable in outpatient setting (eg, peritonitis)(9 ) [ ]V. Cardiac arrhythmias of immediate concern [ ]. Encephalopathy [ ]VII.Bleeding abnormalities (eg, platelet dysfunction) with active (eg, gastrointestinal) bleeding Extended stay beyond goal length of stay may be needed for (3)(4)(35)(36): [ ]a) Continuing uremic complications [ ]b) Comorbidities or complications The original [employer] content created by [employer] has been revised. The portions of the content which have been revised are identified through the use of italic text or in bold, and [employer], [facility] [employer] has neither reviewed nor approved the modified material. All other unmodified content is copyright [employer]. Please see references footnoted in the original [employer] [facility] edition 2016 Admission Criteria Met: Yes
[2016-09-19] MEDS ORDERED: NON-FORMULARY (Gabapentin [Neurontin] 300 MG) PO SCH (10:00)
--- NOTE | 2016-09-19 10:07 | Progress Note ---
Assessment and Plan Assessment and plan: Toxic metabolic encephalopathy with altered mental status. Neurochecks Q 6h. Chronic kidney disease. She sees Occ Ther as outpatient. Hypertension. BP now elevated. Add Norvasc. Hypotension when paramedics went to house. This is now resolved Hyperlipidemia Diabetes mellitus type 2. Monitor fingerstick glucose qac and HS. On glipizide Dementia. Seizure disorder. Continue Keppra History of stroke. On Plavix CAD. On Plavix Full code status History Interval history: Hospitalist Physical - Physical exam Narrative exam: Gen Appearance: No acute distress, HEENT: normocephalic, atraumatic Neck: supple no JVD Lungs: clear to auscultation bilaterally,no crackles or wheezes Heart: S1 and S2 regular, no murmurs or gallop Abdomen: Soft, non-tender, non-distended, normal bowel sounds Extremity:No edema, clubbing or cyanosis Neuro : Lethargic,arouseable,follows commands,moves all ext Psych :calm - Constitutional Vitals: Temp Pulse Resp BP Pulse Ox 97.5 F L 73 16 191/79 100 09/19/16 07:30 09/19/16 07:30 09/19/16 07:30 09/19/16 07:30 09/19/16 07:30 General appearance: Present: mild distress Results - Labs CBC & Chem 7: 09/18/16 19:19 09/19/16 07:45 Labs: Laboratory Last Values WBC 5.2 K/mm3 (4.5-11.0) 09/18/16 19:19 RBC 4.02 M/mm3 (3.65-5.03) 09/18/16 19:19 Hgb 11.9 gm/dl (10.1-14.3) 09/18/16 19:19 Hct 36.5 % (30.3-42.9) 09/18/16 19:19 MCV 91 fl (79-97) 09/18/16 19:19 MCH 30 pg (28-32) 09/18/16 19:19 MCHC 33 % (30-34) 09/18/16 19:19 RDW 14.4 % (13.2-15.2) 09/18/16 19:19 Plt Count 199 K/mm3 (140-440) 09/18/16 19:19 Lymph % (Auto) 16.3 % (13.4-35.0) 09/18/16 19:19 [place] % (Auto) 12.1 % (0.0-7.3) H 09/18/16 19:19 Eos % (Auto) 2.3 % (0.0-4.3) 09/18/16 19:19 Baso % (Auto) 0.7 % (0.0-1.8) 09/18/16 19:19 Lymph # 0.8 K/mm3 (1.2-5.4) L 09/18/16 19:19 [place] # 0.6 K/mm3 (0.0-0.8) 09/18/16 19:19 Eos # 0.1 K/mm3 (0.0-0.4) 09/18/16 19:19 Baso # 0.0 K/mm3 (0.0-0.1) 09/18/16 19:19 Seg Neutrophils % 68.6 % (40.0-70.0) 09/18/16 19:19 Seg Neutrophils # 3.5 K/mm3 (1.8-7.7) 09/18/16 19:19 Sodium 146 mmol/L (137-145) H 09/19/16 07:45 Potassium 4.6 mmol/L (3.6-5.0) 09/19/16 07:45 Chloride 114.4 mmol/L (98-107) H 09/19/16 07:45 Carbon Dioxide 18 mmol/L (22-30) L 09/19/16 07:45 Anion Gap 18 mmol/L 09/19/16 07:45 BUN 55 mg/dL (7-17) H 09/19/16 07:45 Creatinine 2.5 mg/dL (0.7-1.2) H 09/19/16 07:45 Estimated GFR 24 ml/min 09/19/16 07:45 BUN/Creatinine Ratio 22.00 % 09/19/16 07:45 Glucose 183 mg/dL (65-100) H 09/19/16 07:45 POC Glucose 214 (70-105) H 09/19/16 06:29 Calcium 8.8 mg/dL (8.4-10.2) 09/19/16 07:45 Total Bilirubin 0.30 mg/dL (0.1-1.2) 09/18/16 15:40 AST 10 units/L (5-40) 09/18/16 15:40 ALT 9 units/L (7-56) 09/18/16 15:40 Alkaline Phosphatase 105 units/L (35-129) 09/18/16 15:40 Troponin T < 0.010 ng/mL (0.00-0.029) 09/18/16 16:41 NT-Pro-B Natriuret Pep 1254 pg/mL (0-900) H 09/18/16 15:40 Total Protein 7.4 g/dL (6.3-8.2) 09/18/16 15:40 Albumin 3.4 g/dL (3.9-5) L 09/18/16 15:40 Albumin/Globulin Ratio 0.9 % 09/18/16 15:40 TSH 0.020 mlU/mL (0.270-4.200) L 09/18/16 15:40 Free T4 3.20 ng/dL (0.76-1.46) H 09/18/16 16:41 Urine Color Yellow (Yellow) 09/18/16 15:57 Urine Turbidity Clear (Clear) 09/18/16 15:57 Urine pH 5.0 (5.0-7.0) 09/18/16 15:57 Ur Specific [place] 1.018 (1.003-1.030) 09/18/16 15:57 Urine Protein 100 mg/dl mg/dL (Negative) 09/18/16 15:57 Urine Glucose (UA) 50 mg/dL (Negative) 09/18/16 15:57 Urine Ketones Neg mg/dL (Negative) 09/18/16 15:57 Urine Blood Neg (Negative) 09/18/16 15:57 Urine Nitrite Neg (Negative) 09/18/16 15:57 Urine Bilirubin Neg (Negative) 09/18/16 15:57 Urine Urobilinogen < 2.0 mg/dL (<2.0) 09/18/16 15:57 Ur Leukocyte Esterase Neg (Negative) 09/18/16 15:57 Urine WBC (Auto) < 1.0 /HPF (0.0-6.0) 09/18/16 15:57 Urine RBC (Auto) 1.0 /HPF (0.0-6.0) 09/18/16 15:57 Urine Bacteria (Auto) 2+ /HPF (Negative) 09/18/16 15:57 Hyaline Casts 1 /LPF 09/18/16 15:57 Urine Mucus Few /HPF 09/18/16 15:57
[2016-09-19] MEDS: ROCEPHIN/NS 1 GM/50 ML 1 GM/50 ML BAG IV SCH (12:45)
[2016-09-19] MEDS: ZESTRIL PO SCH (12:45)
[2016-09-19] MEDS: KEPPRA PO SCH ×2 (12:46→22:36)
[2016-09-19] MEDS: NORVASC PO SCH (12:46)
[2016-09-19] MEDS: NEURONTIN PO SCH (12:46)
[2016-09-19] MEDS: PLAVIX PO SCH (12:46)
[2016-09-19] MEDS: COREG PO SCH ×2 (12:46→22:39)
[2016-09-19] MEDS: GLUCOTROL PO SCH (12:47)
[2016-09-19] MEDS ORDERED: LOVENOX SUB-Q SCH (22:00)
[2016-09-19] MEDS: LOVENOX SUB-Q SCH (22:38)
[2016-09-20 05:21] LABS: Calcium 8.9 mg/dL (8.4-10.2); Chloride 111.2 mmol/L (98-107); Potassium 4.5 mmol/L (3.6-5.0)
[2016-09-20] MEDS: GLUCOTROL PO SCH (09:25)
[2016-09-20] MEDS: ROCEPHIN/NS 1 GM/50 ML 1 GM/50 ML BAG IV SCH (09:25)
[2016-09-20] MEDS: NEURONTIN PO SCH (09:25)
[2016-09-20] MEDS: ZESTRIL PO SCH (09:25)
[2016-09-20] MEDS: COREG PO SCH ×2 (09:25→22:46)
[2016-09-20] MEDS: PLAVIX PO SCH (09:25)
[2016-09-20] MEDS: NORVASC PO SCH (09:29)
[2016-09-20] MEDS: KEPPRA PO SCH ×2 (09:29→22:46)
--- NOTE | 2016-09-20 09:46 | Consultation ---
History of Present Illness - Reason for Consult Consult date: 09/20/16 chronic renal failure - History of Present Illness patient with h/o dementia was sent to the hospital for worsening mental status and hypotension, in the hospital her BP improved and currently requiring BP meds. she also has h/o of CKD and was started on HD in 08/30, her current access in [facility], not clear when she received her last dialysis. renal consult requested for management of severe renal failure Past History Past Medical History: acute [place], CAD, diabetes, hypertension, seizures, stroke Past Surgical History: CABG Social history: single, lives with family. denies: smoking, alcohol abuse, prescription drug abuse Family history: hypertension Medications and Allergies Allergies Allergy/AdvReac Type Severity Reaction Status Date / Time Tetracyclines AdvReac Unknown Verified 09/26/14 12:09 Home Medications Medication Instructions Recorded Confirmed Last Taken Type Gabapentin [Neurontin] 300 mg PO DAILY 07/25/14 09/18/16 03/21/16 19:00 History levETIRAcetam [Keppra TAB] 500 mg PO BID 02/23/16 09/18/16 03/21/16 19:00 History Clopidogrel Bisulfate [Clopidogrel] 75 mg PO DAILY 03/22/16 09/18/16 03/21/16 19 :00 History Vitamin D 50,000 units PO 1XW 03/22/16 09/18/16 05/05/16 10:00 History Carvedilol [Coreg] 25 mg PO BID 09/18/16 09/18/16 Unknown History Lisinopril [Zestril] 5 mg PO QDAY 09/18/16 09/18/16 Unknown History glipiZIDE [Glucotrol] 5 mg PO QDAY 09/18/16 09/18/16 Unknown History Active Meds: Active Medications Acetaminophen (Tylenol) 650 mg PO Q4H PRN PRN Reason: Pain MILD(1-3)/Fever >100.5/[place] Albuterol (Proventil) 2.5 mg IH Q4HRT PRN PRN Reason: Shortness Of Breath Amlodipine Besylate (Norvasc) 5 mg PO QDAY [place] Last Admin: 09/20/16 09:29 Dose: 5 mg Bisacodyl (Dulcolax) 10 mg [place] QDAY PRN PRN Reason: Constipation unrelieved by MOM Carvedilol (Coreg) 25 mg PO BID [facility] Last Admin: 09/20/16 09:25 Dose: 25 mg Clopidogrel Bisulfate (Plavix) 75 mg PO DAILY [facility] Last Admin: 09/20/16 09:25 Dose: 75 mg Enoxaparin Sodium (Lovenox) 30 mg SUB-Q QDAY@2200 [facility] Last Admin: 09/19/16 22:38 Dose: 30 mg Ergocalciferol (Vitamin D2) 50,000 unit PO QWEEK [facility] Gabapentin (Neurontin) 300 mg PO QDAY [facility] Last Admin: 09/20/16 09:25 Dose: 300 mg Glipizide (Glucotrol) 5 mg PO QDAY [facility] Last Admin: 09/20/16 09:25 Dose: 5 mg Ceftriaxone Sodium (Rocephin/Ns 1 Gm/50 Ml) 1 gm in 50 mls @ 100 mls/hr IV Q24HR [facility] PRN Reason: Protocol Last Admin: 09/20/16 09:25 Dose: 100 mls/hr Levetiracetam (Keppra) 500 mg PO BID [facility] Last Admin: 09/20/16 09:29 Dose: 500 mg Magnesium Hydroxide (Milk Of Magnesia) 30 ml PO Q4H PRN PRN Reason: Constipation Ondansetron HCl (Zofran) 4 mg IV Q8H PRN PRN Reason: N/V unrelieved by [place] Sodium Bicarbonate (Sodium Bicarbonate) 1,300 mg PO TID [facility] Sodium Chloride (Sodium Chloride Flush Syringe 10 Ml) 10 ml IV PRN PRN PRN Reason: LINE FLUSH Review of Systems ROS unobtainable: due to mental status Exam - Vital Signs Vital signs: Vital Signs Pulse Ox 100 09/18/16 14:24 - General Appearance General appearance: well-developed, well-nourished EENT: ATNC, PERRL, mucous membranes moist Neck: Present: neck supple Respiratory: Clear to Ascultation Heart: regular, S1S2 Gastrointestinal: Present: normoactive bowel sounds. Absent: tenderness, distended Integumentary: no rash, warm and dry Neurologic: no focal deficit, no asterixis Musculoskeletal: Present: other (no edema in BLE) Psychiatric: cooperative Results - Lab Results 09/18/16 19:19 09/20/16 04:34 Most recent lab results Calcium 8.9 mg/dL (8.4-10.2) 09/20/16 04:34 Assessment and Plan - Patient Problems (1) Chronic kidney disease (CKD) stage G5/A1, glomerular filtration rate (GFR) less than or equal to 15 mL/min/1.73 square meter and albuminuria creatinine ratio less than 30 mg/g Current Visit: Yes Status: Acute Plan to address problem: current eGFR > 15 ml/min, will hold HD will request thomas and order 24 hours creatinine clearance, if adequate patient possibly can be taken off dialysis will d/c lisinopril strict I&O daily weight renal diet (2) Altered mental status Current Visit: Yes Status: Acute Qualifiers: Altered mental status type: unspecified Coma depth: C Coma timing: C Qualified Code(s): R41.82 - Altered mental status, unspecified Plan to address problem: she has h/o dementia, could be due to hypotension CT head negative for acute process (3) Metabolic acidemia Current Visit: Yes Status: Acute Plan to address problem: will start sodium bicarb tabs 1300 mg TID (4) Hypertension Current Visit: No Status: Acute Qualifiers: Hypertension type: H Plan to address problem: hold lisinopril as above cont coreg and amlodipine
--- NOTE | 2016-09-20 10:44 | Progress Note ---
Assessment and Plan Assessment and plan: Toxic metabolic encephalopathy with altered mental status, improving. Neurochecks Q 4h. Chronic kidney disease. She sees Drilling Engineer as outpatient. Cr 2.0 today. Hypertension. BP still very high. Will give additional Norvasc and increase Norvasc dose to 10 mg by mouth daily. Hypotension when paramedics went to house. This is now resolved Hyperlipidemia Diabetes mellitus type 2. Monitor fingerstick glucose qac and HS. On glipizide Dementia. Seizure disorder. Continue Keppra History of stroke. On Plavix CAD. On Plavix Full code status History Interval history: Generalized weakness, Altered mental status Hospitalist Physical - Physical exam Narrative exam: Gen Appearance: No acute distress, HEENT: normocephalic, atraumatic Neck: supple no JVD Lungs: clear to auscultation bilaterally,no crackles or wheezes Heart: S1 and S2 regular, no murmurs or gallop Abdomen: Soft, non-tender, non-distended, normal bowel sounds Extremity:No edema, clubbing or cyanosis Neuro : Awake, alert, Psych :calm - Constitutional Vitals: Temp Pulse Resp BP Pulse Ox 98.4 F 51 L 15 182/94 100 09/20/16 07:15 09/20/16 07:15 09/20/16 07:15 09/20/16 07:15 09/20/16 07:15 General appearance: Present: mild distress Results - Labs CBC & Chem 7: 09/18/16 19:19 09/20/16 04:34 Labs: Laboratory Last Values WBC 5.2 K/mm3 (4.5-11.0) 09/18/16 19:19 RBC 4.02 M/mm3 (3.65-5.03) 09/18/16 19:19 Hgb 11.9 gm/dl (10.1-14.3) 09/18/16 19:19 Hct 36.5 % (30.3-42.9) 09/18/16 19:19 MCV 91 fl (79-97) 09/18/16 19:19 MCH 30 pg (28-32) 09/18/16 19:19 MCHC 33 % (30-34) 09/18/16 19:19 RDW 14.4 % (13.2-15.2) 09/18/16 19:19 Plt Count 199 K/mm3 (140-440) 09/18/16 19:19 Lymph % (Auto) 16.3 % (13.4-35.0) 09/18/16 19:19 [place] % (Auto) 12.1 % (0.0-7.3) H 09/18/16 19:19 Eos % (Auto) 2.3 % (0.0-4.3) 09/18/16 19:19 Baso % (Auto) 0.7 % (0.0-1.8) 09/18/16 19:19 Lymph # 0.8 K/mm3 (1.2-5.4) L 09/18/16 19:19 [place] # 0.6 K/mm3 (0.0-0.8) 09/18/16 19:19 Eos # 0.1 K/mm3 (0.0-0.4) 09/18/16 19:19 Baso # 0.0 K/mm3 (0.0-0.1) 09/18/16 19:19 Seg Neutrophils % 68.6 % (40.0-70.0) 09/18/16 19:19 Seg Neutrophils # 3.5 K/mm3 (1.8-7.7) 09/18/16 19:19 Sodium 142 mmol/L (137-145) 09/20/16 04:34 Potassium 4.5 mmol/L (3.6-5.0) 09/20/16 04:34 Chloride 111.2 mmol/L (98-107) H 09/20/16 04:34 Carbon Dioxide 16 mmol/L (22-30) L 09/20/16 04:34 Anion Gap 19 mmol/L 09/20/16 04:34 BUN 44 mg/dL (7-17) H 09/20/16 04:34 Creatinine 2.0 mg/dL (0.7-1.2) H 09/20/16 04:34 Estimated GFR 31 ml/min 09/20/16 04:34 BUN/Creatinine Ratio 22.00 % 09/20/16 04:34 Glucose 125 mg/dL (65-100) H 09/20/16 04:34 POC Glucose 193 (70-105) H 09/19/16 15:37 Calcium 8.9 mg/dL (8.4-10.2) 09/20/16 04:34 Total Bilirubin 0.30 mg/dL (0.1-1.2) 09/18/16 15:40 AST 10 units/L (5-40) 09/18/16 15:40 ALT 9 units/L (7-56) 09/18/16 15:40 Alkaline Phosphatase 105 units/L (35-129) 09/18/16 15:40 Troponin T < 0.010 ng/mL (0.00-0.029) 09/18/16 16:41 NT-Pro-B Natriuret Pep 1254 pg/mL (0-900) H 09/18/16 15:40 Total Protein 7.4 g/dL (6.3-8.2) 09/18/16 15:40 Albumin 3.4 g/dL (3.9-5) L 09/18/16 15:40 Albumin/Globulin Ratio 0.9 % 09/18/16 15:40 TSH 0.020 mlU/mL (0.270-4.200) L 09/18/16 15:40 Free T4 3.20 ng/dL (0.76-1.46) H 09/18/16 16:41 Urine Color Yellow (Yellow) 09/18/16 15:57 Urine Turbidity Clear (Clear) 09/18/16 15:57 Urine pH 5.0 (5.0-7.0) 09/18/16 15:57 Ur Specific [place] 1.018 (1.003-1.030) 09/18/16 15:57 Urine Protein 100 mg/dl mg/dL (Negative) 09/18/16 15:57 Urine Glucose (UA) 50 mg/dL (Negative) 09/18/16 15:57 Urine Ketones Neg mg/dL (Negative) 09/18/16 15:57 Urine Blood Neg (Negative) 09/18/16 15:57 Urine Nitrite Neg (Negative) 09/18/16 15:57 Urine Bilirubin Neg (Negative) 09/18/16 15:57 Urine Urobilinogen < 2.0 mg/dL (<2.0) 09/18/16 15:57 Ur Leukocyte Esterase Neg (Negative) 09/18/16 15:57 Urine WBC (Auto) < 1.0 /HPF (0.0-6.0) 09/18/16 15:57 Urine RBC (Auto) 1.0 /HPF (0.0-6.0) 09/18/16 15:57 Urine Bacteria (Auto) 2+ /HPF (Negative) 09/18/16 15:57 Hyaline Casts 1 /LPF 09/18/16 15:57 Urine Mucus Few /HPF 09/18/16 15:57
[2016-09-20] MEDS ORDERED: NORVASC PO STA (15:57)
[2016-09-20] MEDS: SODIUM BICARBONATE PO SCH ×3 (16:39→22:57)
[2016-09-20] MEDS: LOVENOX SUB-Q SCH (22:46)
[2016-09-21 07:21] LABS: Basophils % (Auto) 0.5 % (0.0-1.8); Eosinophils % (Auto) 3.2 % (0.0-4.3); Hematocrit 32.5 % (30.3-42.9); Hemoglobin 10.5 gm/dl (10.1-14.3); Mean Corpuscular HGB Conc 32 % (30-34); Mean Corpuscular Hemoglobin 29 pg (28-32); Mean Corpuscular Volume 90 fl (79-97); Platelet Count 172 K/mm3 (140-440); Red Blood Count 3.62 M/mm3 (3.65-5.03); Red Cell Distribution Width 13.7 % (13.2-15.2); White Blood Count 5.4 K/mm3 (4.5-11.0)
[2016-09-21 07:33] LABS: Calcium 8.7 mg/dL (8.4-10.2); Chloride 107.3 mmol/L (98-107); Phosphorous 2.3 mg/dL (2.5-4.5); Potassium 4.2 mmol/L (3.6-5.0)
--- NOTE | 2016-09-21 09:43 | Progress Note ---
Assessment and Plan - Patient Problems (1) Chronic kidney disease (CKD) stage G5/A1, glomerular filtration rate (GFR) less than or equal to 15 mL/min/1.73 square meter and albuminuria creatinine ratio less than 30 mg/g Current Visit: Yes Status: Acute Plan to address problem: current eGFR > 15 ml/min, stable Cr and BUN since admission, cont to hold HD 24 hours creatinine clearance is pending, if adequate patient possibly can be taken off dialysis strict I&O daily weight renal diet (2) Altered mental status Current Visit: Yes Status: Acute Qualifiers: Altered mental status type: unspecified Coma depth: C Coma timing: C Qualified Code(s): R41.82 - Altered mental status, unspecified Plan to address problem: she has h/o dementia, could be due to hypotension CT head negative for acute process (3) Metabolic acidemia Current Visit: Yes Status: Acute Plan to address problem: cont sodium bicarb tabs 1300 mg TID (4) Hypertension Current Visit: No Status: Acute Qualifiers: Hypertension type: H Plan to address problem: cont to hold lisinopril cont coreg and amlodipine Subjective Date of service: 09/21/16 Principal diagnosis: severe renal failure Interval history: patient is comfortable, eat her breakfast, oriented only to self Objective - Vital Signs Vital signs: Vital Signs - 12hr 09/20/16 09/21/16 09/21/16 22:46 04:52 08:00 Temperature 98.1 F 98.3 F Pulse Rate 80 Pulse Rate [ 71 76 Right Radial] Respiratory 16 18 Rate Blood Pressure 127/62 Blood Pressure 119/62 128/62 [Right Arm] O2 Sat by Pulse 97 Oximetry - General Appearance General appearance: well-developed, well-nourished EENT: ATNC, PERRL, mucous membranes moist Neck: no JVD, no carotid bruit Respiratory: Present: Clear to Ascultation Cardiology: regular, S1S2 Gastrointestinal: normoactive bowel sounds, no tenderness, no distended, no masses Integumentary: no rash, warm and dry Neurologic: no focal deficit, no asterixis Musculoskeletal: other (no edema in BLE) Psychiatric: cooperative - Lab 09/21/16 06:39 09/21/16 06:39 Most recent lab results Calcium 8.7 mg/dL (8.4-10.2) 09/21/16 06:39 Phosphorus 2.30 mg/dL (2.5-4.5) L 09/21/16 06:39
--- NOTE | 2016-09-21 10:15 | Progress Note ---
Assessment and Plan Assessment and plan: Toxic metabolic encephalopathy with altered mental status, improving. She has baseline dementia. Neurochecks Q 4h. Chronic kidney disease vs ESRD. She sees Hammer Adjuster as outpatient. Cr 2.0 again today. Discussed with Hammer Adjuster today. Hypertension. BP now controlled. Most since blood pressure 122/64. Increase Norvasc dose to 10 mg by mouth daily. Hypotension when paramedics went to house. This is now resolved Hyperlipidemia Diabetes mellitus type 2. Monitor fingerstick glucose qac and HS. On glipizide Dementia. Seizure disorder. Continue Keppra History of stroke. On Plavix CAD. On Plavix Full code status History Interval history: Generalized weakness, Altered mental status, she has baseline dementia, Family says they cannot take care of her at home Hospitalist Physical - Physical exam Narrative exam: Gen Appearance: No acute distress, HEENT: normocephalic, atraumatic Neck: supple no JVD Lungs: clear to auscultation bilaterally,no crackles or wheezes Heart: S1 and S2 regular, no murmurs or gallop Abdomen: Soft, non-tender, non-distended, normal bowel sounds Extremity:No edema, clubbing or cyanosis Neuro : Awake, alert, confused Psych :calm - Constitutional Vitals: Temp Pulse Resp BP Pulse Ox 98.3 F 76 18 128/62 97 09/21/16 08:00 09/21/16 08:00 09/21/16 08:00 09/21/16 08:00 09/21/16 08:00 General appearance: Present: mild distress Results - Labs CBC & Chem 7: 09/21/16 06:39 09/21/16 06:39 Labs: Laboratory Last Values WBC 5.4 K/mm3 (4.5-11.0) 09/21/16 06:39 RBC 3.62 M/mm3 (3.65-5.03) L 09/21/16 06:39 Hgb 10.5 gm/dl (10.1-14.3) 09/21/16 06:39 Hct 32.5 % (30.3-42.9) 09/21/16 06:39 MCV 90 fl (79-97) 09/21/16 06:39 MCH 29 pg (28-32) 09/21/16 06:39 MCHC 32 % (30-34) 09/21/16 06:39 RDW 13.7 % (13.2-15.2) 09/21/16 06:39 Plt Count 172 K/mm3 (140-440) 09/21/16 06:39 Lymph % (Auto) 21.2 % (13.4-35.0) 09/21/16 06:39 [place] % (Auto) 15.6 % (0.0-7.3) H 09/21/16 06:39 Eos % (Auto) 3.2 % (0.0-4.3) 09/21/16 06:39 Baso % (Auto) 0.5 % (0.0-1.8) 09/21/16 06:39 Lymph # 1.1 K/mm3 (1.2-5.4) L 09/21/16 06:39 [place] # 0.8 K/mm3 (0.0-0.8) 09/21/16 06:39 Eos # 0.2 K/mm3 (0.0-0.4) 09/21/16 06:39 Baso # 0.0 K/mm3 (0.0-0.1) 09/21/16 06:39 Seg Neutrophils % 59.5 % (40.0-70.0) 09/21/16 06:39 Seg Neutrophils # 3.2 K/mm3 (1.8-7.7) 09/21/16 06:39 Sodium 139 mmol/L (137-145) 09/21/16 06:39 Potassium 4.2 mmol/L (3.6-5.0) 09/21/16 06:39 Chloride 107.3 mmol/L (98-107) H 09/21/16 06:39 Carbon Dioxide 19 mmol/L (22-30) L 09/21/16 06:39 Anion Gap 17 mmol/L 09/21/16 06:39 BUN 44 mg/dL (7-17) H 09/21/16 06:39 Creatinine 2.0 mg/dL (0.7-1.2) H 09/21/16 06:39 Estimated GFR 31 ml/min 09/21/16 06:39 BUN/Creatinine Ratio 22.00 % 09/21/16 06:39 Glucose 215 mg/dL (65-100) H 09/21/16 06:39 POC Glucose 193 (70-105) H 09/19/16 15:37 Calcium 8.7 mg/dL (8.4-10.2) 09/21/16 06:39 Phosphorus 2.30 mg/dL (2.5-4.5) L 09/21/16 06:39 Total Bilirubin 0.30 mg/dL (0.1-1.2) 09/18/16 15:40 AST 10 units/L (5-40) 09/18/16 15:40 ALT 9 units/L (7-56) 09/18/16 15:40 Alkaline Phosphatase 105 units/L (35-129) 09/18/16 15:40 Troponin T < 0.010 ng/mL (0.00-0.029) 09/18/16 16:41 NT-Pro-B Natriuret Pep 1254 pg/mL (0-900) H 09/18/16 15:40 Total Protein 7.4 g/dL (6.3-8.2) 09/18/16 15:40 Albumin 3.4 g/dL (3.9-5) L 09/18/16 15:40 Albumin/Globulin Ratio 0.9 % 09/18/16 15:40 TSH 0.020 mlU/mL (0.270-4.200) L 09/18/16 15:40 Free T4 3.20 ng/dL (0.76-1.46) H 09/18/16 16:41 Urine Color Yellow (Yellow) 09/18/16 15:57 Urine Turbidity Clear (Clear) 09/18/16 15:57 Urine pH 5.0 (5.0-7.0) 09/18/16 15:57 Ur Specific [place] 1.018 (1.003-1.030) 09/18/16 15:57 Urine Protein 100 mg/dl mg/dL (Negative) 09/18/16 15:57 Urine Glucose (UA) 50 mg/dL (Negative) 09/18/16 15:57 Urine Ketones Neg mg/dL (Negative) 09/18/16 15:57 Urine Blood Neg (Negative) 09/18/16 15:57 Urine Nitrite Neg (Negative) 09/18/16 15:57 Urine Bilirubin Neg (Negative) 09/18/16 15:57 Urine Urobilinogen < 2.0 mg/dL (<2.0) 09/18/16 15:57 Ur Leukocyte Esterase Neg (Negative) 09/18/16 15:57 Urine WBC (Auto) < 1.0 /HPF (0.0-6.0) 09/18/16 15:57 Urine RBC (Auto) 1.0 /HPF (0.0-6.0) 09/18/16 15:57 Urine Bacteria (Auto) 2+ /HPF (Negative) 09/18/16 15:57 Hyaline Casts 1 /LPF 09/18/16 15:57 Urine Mucus Few /HPF 09/18/16 15:57
[2016-09-21] MEDS: ROCEPHIN/NS 1 GM/50 ML 1 GM/50 ML BAG IV SCH (10:22)
[2016-09-21] MEDS: PLAVIX PO SCH (10:22)
[2016-09-21] MEDS: COREG PO SCH ×2 (10:22→21:56)
[2016-09-21] MEDS: SODIUM BICARBONATE PO SCH ×3 (10:22→21:56)
[2016-09-21] MEDS: NORVASC PO SCH (10:23)
[2016-09-21] MEDS: GLUCOTROL PO SCH (10:23)
[2016-09-21] MEDS: NEURONTIN PO SCH (10:23)
[2016-09-21] MEDS: KEPPRA PO SCH ×2 (10:23→21:57)
[2016-09-21] MEDS: LOVENOX SUB-Q SCH (21:56)
[2016-09-22 09:01] LABS: BUN/Creatinine Ratio 21.76; Calcium 8.5 mg/dL (8.4-10.2); Chloride 109.5 mmol/L (98-107); Phosphorous 2.5 mg/dL (2.5-4.5); Potassium 4.2 mmol/L (3.6-5.0)
[2016-09-22 09:03] LABS: Basophils % (Auto) 0.5 % (0.0-1.8); Eosinophils % (Auto) 3.9 % (0.0-4.3); Hematocrit 30.6 % (30.3-42.9); Mean Corpuscular HGB Conc 33 % (30-34); Mean Corpuscular Hemoglobin 29 pg (28-32); Mean Corpuscular Volume 89 fl (79-97); Platelet Count 151 K/mm3 (140-440); Red Blood Count 3.43 M/mm3 (3.65-5.03); Red Cell Distribution Width 13.7 % (13.2-15.2); White Blood Count 4.8 K/mm3 (4.5-11.0)
--- NOTE | 2016-09-22 09:03 | Progress Note ---
Assessment and Plan Assessment and plan: Toxic metabolic encephalopathy with altered mental status, improving. She has baseline dementia. Neurochecks Q 4h. Chronic kidney disease stage 5. She sees Clutch Mechanic as outpatient. Cr 1.7 today. Discussed with Clutch Mechanic yesterday. Hypertension. BP now controlled. Most since blood pressure 122/62. Hypotension when paramedics went to house. This is now resolved Hyperlipidemia Diabetes mellitus type 2. Monitor fingerstick glucose qac and HS. On glipizide Dementia. Seizure disorder. Continue Keppra History of stroke. On Plavix CAD. On Plavix failure to thrive, debility. Family says they cannot take care of her at home anymore. Discussed with case maker. For placement Full code status History Interval history: Generalized weakness, Altered mental status, she has baseline dementia, Family says they cannot take care of her at home Hospitalist Physical - Physical exam Narrative exam: Gen Appearance: No acute distress, HEENT: normocephalic, atraumatic Neck: supple no JVD Lungs: clear to auscultation bilaterally,no crackles or wheezes Heart: S1 and S2 regular, no murmurs or gallop Abdomen: Soft, non-tender, non-distended, normal bowel sounds Extremity:No edema, clubbing or cyanosis Neuro : Awake, confused Psych :calm - Constitutional Vitals: Temp Pulse Resp BP Pulse Ox 98.3 F 72 16 122/62 100 09/22/16 08:00 09/22/16 08:00 09/22/16 08:00 09/22/16 08:00 09/22/16 08:00 General appearance: Present: mild distress Results - Labs CBC & Chem 7: 09/22/16 08:28 09/22/16 08:28 Labs: Laboratory Last Values WBC 5.4 K/mm3 (4.5-11.0) 09/21/16 06:39 RBC 3.62 M/mm3 (3.65-5.03) L 09/21/16 06:39 Hgb 10.5 gm/dl (10.1-14.3) 09/21/16 06:39 Hct 32.5 % (30.3-42.9) 09/21/16 06:39 MCV 90 fl (79-97) 09/21/16 06:39 MCH 29 pg (28-32) 09/21/16 06:39 MCHC 32 % (30-34) 09/21/16 06:39 RDW 13.7 % (13.2-15.2) 09/21/16 06:39 Plt Count 172 K/mm3 (140-440) 09/21/16 06:39 Lymph % (Auto) 21.2 % (13.4-35.0) 09/21/16 06:39 [place] % (Auto) 15.6 % (0.0-7.3) H 09/21/16 06:39 Eos % (Auto) 3.2 % (0.0-4.3) 09/21/16 06:39 Baso % (Auto) 0.5 % (0.0-1.8) 09/21/16 06:39 Lymph # 1.1 K/mm3 (1.2-5.4) L 09/21/16 06:39 [place] # 0.8 K/mm3 (0.0-0.8) 09/21/16 06:39 Eos # 0.2 K/mm3 (0.0-0.4) 09/21/16 06:39 Baso # 0.0 K/mm3 (0.0-0.1) 09/21/16 06:39 Seg Neutrophils % 59.5 % (40.0-70.0) 09/21/16 06:39 Seg Neutrophils # 3.2 K/mm3 (1.8-7.7) 09/21/16 06:39 Sodium 141 mmol/L (137-145) 09/22/16 08:28 Potassium 4.2 mmol/L (3.6-5.0) 09/22/16 08:28 Chloride 109.5 mmol/L (98-107) H 09/22/16 08:28 Carbon Dioxide 19 mmol/L (22-30) L 09/22/16 08:28 Anion Gap 17 mmol/L 09/22/16 08:28 BUN 37 mg/dL (7-17) H 09/22/16 08:28 Creatinine 1.7 mg/dL (0.7-1.2) H 09/22/16 08:28 Estimated GFR 37 ml/min 09/22/16 08:28 BUN/Creatinine Ratio 21.76 % 09/22/16 08:28 Glucose 145 mg/dL (65-100) H 09/22/16 08:28 POC Glucose 145 (70-105) H 09/22/16 06:15 Calcium 8.5 mg/dL (8.4-10.2) 09/22/16 08:28 Phosphorus 2.50 mg/dL (2.5-4.5) 09/22/16 08:28 Total Bilirubin 0.30 mg/dL (0.1-1.2) 09/18/16 15:40 AST 10 units/L (5-40) 09/18/16 15:40 ALT 9 units/L (7-56) 09/18/16 15:40 Alkaline Phosphatase 105 units/L (35-129) 09/18/16 15:40 Troponin T < 0.010 ng/mL (0.00-0.029) 09/18/16 16:41 NT-Pro-B Natriuret Pep 1254 pg/mL (0-900) H 09/18/16 15:40 Total Protein 7.4 g/dL (6.3-8.2) 09/18/16 15:40 Albumin 3.4 g/dL (3.9-5) L 09/18/16 15:40 Albumin/Globulin Ratio 0.9 % 09/18/16 15:40 TSH 0.020 mlU/mL (0.270-4.200) L 09/18/16 15:40 Free T4 3.20 ng/dL (0.76-1.46) H 09/18/16 16:41 Urine Color Yellow (Yellow) 09/18/16 15:57 Urine Turbidity Clear (Clear) 09/18/16 15:57 Urine pH 5.0 (5.0-7.0) 09/18/16 15:57 Ur Specific [place] 1.018 (1.003-1.030) 09/18/16 15:57 Urine Protein 100 mg/dl mg/dL (Negative) 09/18/16 15:57 Urine Glucose (UA) 50 mg/dL (Negative) 09/18/16 15:57 Urine Ketones Neg mg/dL (Negative) 09/18/16 15:57 Urine Blood Neg (Negative) 09/18/16 15:57 Urine Nitrite Neg (Negative) 09/18/16 15:57 Urine Bilirubin Neg (Negative) 09/18/16 15:57 Urine Urobilinogen < 2.0 mg/dL (<2.0) 09/18/16 15:57 Ur Leukocyte Esterase Neg (Negative) 09/18/16 15:57 Urine WBC (Auto) < 1.0 /HPF (0.0-6.0) 09/18/16 15:57 Urine RBC (Auto) 1.0 /HPF (0.0-6.0) 09/18/16 15:57 Urine Bacteria (Auto) 2+ /HPF (Negative) 09/18/16 15:57 Hyaline Casts 1 /LPF 09/18/16 15:57 Urine Mucus Few /HPF 09/18/16 15:57 Urine Total Volume 600 09/21/16 16:15 Urine Creatinine 127.6 mg/dL (0.1-20.0) H 09/21/16 16:15 Height (in) 62.0 inches 09/21/16 16:15 Weight (lb) 139.3 lbs 09/21/16 16:15 Creatinine Clearance 28 09/21/16 16:15
[2016-09-22] MEDS: KEPPRA PO SCH ×2 (10:31→23:08)
[2016-09-22] MEDS: NEURONTIN PO SCH (10:31)
[2016-09-22] MEDS: GLUCOTROL PO SCH (10:31)
[2016-09-22] MEDS: SODIUM BICARBONATE PO SCH ×3 (10:31→20:55)
[2016-09-22] MEDS: ROCEPHIN/NS 1 GM/50 ML 1 GM/50 ML BAG IV SCH (10:32)
[2016-09-22] MEDS: NORVASC PO SCH (10:32)
[2016-09-22] MEDS: PLAVIX PO SCH (10:34)
[2016-09-22] MEDS: COREG PO SCH ×2 (10:36→23:08)
--- NOTE | 2016-09-22 12:49 | Progress Note ---
Assessment and Plan - Patient Problems (1) Chronic kidney disease (CKD) stage G5/A1, glomerular filtration rate (GFR) less than or equal to 15 mL/min/1.73 square meter and albuminuria creatinine ratio less than 30 mg/g Current Visit: Yes Status: Acute Plan to address problem: Cr and BUN imporved, 24 creatinine clearance showed adequate kdiney function will request permcath removal, no indication for HD attempted to contact the sister to update her with the plan but she did not answer, will try again tomorrow strict I&O daily weight renal diet (2) Altered mental status Current Visit: Yes Status: Acute Qualifiers: Altered mental status type: unspecified Coma depth: C Coma timing: C Qualified Code(s): R41.82 - Altered mental status, unspecified Plan to address problem: she has h/o dementia, appears to be at baseline (3) Metabolic acidemia Current Visit: Yes Status: Acute Plan to address problem: cont sodium bicarb tabs 1300 mg TID (4) Hypertension Current Visit: No Status: Acute Qualifiers: Hypertension type: H Plan to address problem: stable, cont to hold lisinopril Subjective Date of service: 09/22/16 Principal diagnosis: severe renal failure Interval history: patient is awake and alert, comfortable Objective - Vital Signs Vital signs: Vital Signs - 12hr 09/22/16 09/22/16 04:00 08:00 Temperature 98.5 F 98.3 F Pulse Rate [ 72 72 Right Radial] Respiratory 18 16 Rate Blood Pressure 142/65 122/62 [Right Arm] O2 Sat by Pulse 100 Oximetry - General Appearance General appearance: well-developed, well-nourished EENT: ATNC, PERRL, mucous membranes moist Neck: no JVD, no carotid bruit Respiratory: Present: Clear to Ascultation. Absent: Rales, Ronchi Cardiology: regular, S1S2 Gastrointestinal: normoactive bowel sounds Integumentary: no rash, warm and dry Neurologic: no focal deficit, no asterixis Musculoskeletal: other (no edema in BLE) Psychiatric: mood/affect appropriate, cooperative - Lab 09/22/16 08:28 09/22/16 08:28 Most recent lab results Calcium 8.5 mg/dL (8.4-10.2) 09/22/16 08:28 Phosphorus 2.50 mg/dL (2.5-4.5) 09/22/16 08:28 Magnesium 1.90 mg/dL (1.7-2.3) 09/22/16 08:28 Urine Creatinine 127.6 mg/dL (0.1-20.0) H 09/21/16 16:15
[2016-09-22] MEDS: NOVOLOG SUB-Q SCH ×2 (17:55→23:10)
[2016-09-22] MEDS: LOVENOX SUB-Q SCH (23:09)
[2016-09-23 05:59] LABS: Basophils % (Auto) 0.6 % (0.0-1.8); Eosinophils % (Auto) 3.9 % (0.0-4.3); Hemoglobin 10.5 gm/dl (10.1-14.3); Mean Corpuscular HGB Conc 32 % (30-34); Mean Corpuscular Hemoglobin 29 pg (28-32); Mean Corpuscular Volume 91 fl (79-97); Platelet Count 162 K/mm3 (140-440); Red Blood Count 3.62 M/mm3 (3.65-5.03); White Blood Count 5.3 K/mm3 (4.5-11.0)
[2016-09-23 06:20] LABS: BUN/Creatinine Ratio 19.37; Calcium 8.6 mg/dL (8.4-10.2); Chloride 105.4 mmol/L (98-107); Potassium 4.4 mmol/L (3.6-5.0)
--- NOTE | 2016-09-23 08:25 | Progress Note ---
Assessment and Plan Assessment and plan: Toxic metabolic encephalopathy with altered mental status. Will obtain MRI Brain. She has baseline dementia. Neurochecks Q 4h. Chronic kidney disease stage 5. She sees Registered Nurse Cardiac Telemetry as outpatient. Cr 1.6 today. To remove dialysis catheter today. She does not need dialysis now. I have been in discussions with Registered Nurse Cardiac Telemetry. Hypertension. BP now controlled. Hypotension when paramedics went to house. This is now resolved Hyperlipidemia Diabetes mellitus type 2. Monitor fingerstick glucose qac and HS. On glipizide Dementia. Seizure disorder. Continue Keppra History of stroke. On Plavix CAD. On Plavix Failure to thrive, debility. Family says they cannot take care of her at home anymore. Discussed with supervisor case loading. For placement Full code status History Interval history: Generalized weakness, Altered mental status, she has baseline dementia, Family says they cannot take care of her at home Hospitalist Physical - Physical exam Narrative exam: Gen Appearance: No acute distress, HEENT: normocephalic, atraumatic Neck: supple no JVD Lungs: clear to auscultation bilaterally,no crackles or wheezes Heart: S1 and S2 regular, no murmurs or gallop Abdomen: Soft, non-tender, non-distended, normal bowel sounds Extremity:No edema, clubbing or cyanosis Neuro : Lethargic Psych :calm - Constitutional Vitals: Temp Pulse Resp BP Pulse Ox 98.3 F 73 20 109/78 100 09/23/16 07:29 09/23/16 07:29 09/23/16 07:29 09/23/16 07:29 09/23/16 07:29 General appearance: Present: mild distress Results - Labs CBC & Chem 7: 09/23/16 05:43 09/23/16 05:43 Labs: Laboratory Last Values WBC 5.3 K/mm3 (4.5-11.0) 09/23/16 05:43 RBC 3.62 M/mm3 (3.65-5.03) L 09/23/16 05:43 Hgb 10.5 gm/dl (10.1-14.3) 09/23/16 05:43 Hct 33.0 % (30.3-42.9) 09/23/16 05:43 MCV 91 fl (79-97) 09/23/16 05:43 MCH 29 pg (28-32) 09/23/16 05:43 MCHC 32 % (30-34) 09/23/16 05:43 RDW 14.0 % (13.2-15.2) 09/23/16 05:43 Plt Count 162 K/mm3 (140-440) 09/23/16 05:43 Lymph % (Auto) 21.9 % (13.4-35.0) 09/23/16 05:43 [place] % (Auto) 14.4 % (0.0-7.3) H 09/23/16 05:43 Eos % (Auto) 3.9 % (0.0-4.3) 09/23/16 05:43 Baso % (Auto) 0.6 % (0.0-1.8) 09/23/16 05:43 Lymph # 1.2 K/mm3 (1.2-5.4) 09/23/16 05:43 [place] # 0.8 K/mm3 (0.0-0.8) 09/23/16 05:43 Eos # 0.2 K/mm3 (0.0-0.4) 09/23/16 05:43 Baso # 0.0 K/mm3 (0.0-0.1) 09/23/16 05:43 Seg Neutrophils % 59.2 % (40.0-70.0) 09/23/16 05:43 Seg Neutrophils # 3.1 K/mm3 (1.8-7.7) 09/23/16 05:43 Sodium 137 mmol/L (137-145) 09/23/16 05:43 Potassium 4.4 mmol/L (3.6-5.0) 09/23/16 05:43 Chloride 105.4 mmol/L (98-107) 09/23/16 05:43 Carbon Dioxide 18 mmol/L (22-30) L 09/23/16 05:43 Anion Gap 18 mmol/L 09/23/16 05:43 BUN 31 mg/dL (7-17) H 09/23/16 05:43 Creatinine 1.6 mg/dL (0.7-1.2) H 09/23/16 05:43 Estimated GFR 40 ml/min 09/23/16 05:43 BUN/Creatinine Ratio 19.37 % 09/23/16 05:43 Glucose 177 mg/dL (65-100) H 09/23/16 05:43 POC Glucose 193 (70-105) H 09/23/16 05:11 Calcium 8.6 mg/dL (8.4-10.2) 09/23/16 05:43 Phosphorus 2.00 mg/dL (2.5-4.5) L 09/23/16 05:43 Magnesium 1.90 mg/dL (1.7-2.3) 09/22/16 08:28 Total Bilirubin 0.30 mg/dL (0.1-1.2) 09/18/16 15:40 AST 10 units/L (5-40) 09/18/16 15:40 ALT 9 units/L (7-56) 09/18/16 15:40 Alkaline Phosphatase 105 units/L (35-129) 09/18/16 15:40 Troponin T < 0.010 ng/mL (0.00-0.029) 09/18/16 16:41 NT-Pro-B Natriuret Pep 1254 pg/mL (0-900) H 09/18/16 15:40 Total Protein 7.4 g/dL (6.3-8.2) 09/18/16 15:40 Albumin 3.4 g/dL (3.9-5) L 09/18/16 15:40 Albumin/Globulin Ratio 0.9 % 09/18/16 15:40 TSH 0.020 mlU/mL (0.270-4.200) L 09/18/16 15:40 Free T4 3.20 ng/dL (0.76-1.46) H 09/18/16 16:41 Urine Color Yellow (Yellow) 09/18/16 15:57 Urine Turbidity Clear (Clear) 09/18/16 15:57 Urine pH 5.0 (5.0-7.0) 09/18/16 15:57 Ur Specific [place] 1.018 (1.003-1.030) 09/18/16 15:57 Urine Protein 100 mg/dl mg/dL (Negative) 09/18/16 15:57 Urine Glucose (UA) 50 mg/dL (Negative) 09/18/16 15:57 Urine Ketones Neg mg/dL (Negative) 09/18/16 15:57 Urine Blood Neg (Negative) 09/18/16 15:57 Urine Nitrite Neg (Negative) 09/18/16 15:57 Urine Bilirubin Neg (Negative) 09/18/16 15:57 Urine Urobilinogen < 2.0 mg/dL (<2.0) 09/18/16 15:57 Ur Leukocyte Esterase Neg (Negative) 09/18/16 15:57 Urine WBC (Auto) < 1.0 /HPF (0.0-6.0) 09/18/16 15:57 Urine RBC (Auto) 1.0 /HPF (0.0-6.0) 09/18/16 15:57 Urine Bacteria (Auto) 2+ /HPF (Negative) 09/18/16 15:57 Hyaline Casts 1 /LPF 09/18/16 15:57 Urine Mucus Few /HPF 09/18/16 15:57 Urine Total Volume 600 09/21/16 16:15 Urine Creatinine 127.6 mg/dL (0.1-20.0) H 09/21/16 16:15 Height (in) 62.0 inches 09/21/16 16:15 Weight (lb) 139.3 lbs 09/21/16 16:15 Creatinine Clearance 28 09/21/16 16:15
[2016-09-23] MEDS: NOVOLOG SUB-Q SCH ×3 (08:45→18:56)
[2016-09-23] MEDS: KEPPRA PO SCH ×3 (09:00→22:15)
[2016-09-23] MEDS: COREG PO SCH ×3 (09:00→22:15)
[2016-09-23] MEDS ORDERED: XYLOCAINE 1%/ EPI 1:100,000 INFILTRATI ONE (09:28)
--- NOTE | 2016-09-23 09:38 | Event Note ---
Date: 09/23/16 Per nephrology, patient no longer needs dialysis. Permacath removal has been requested. This will be performed today in the cathlab. Informed consent was signed.
[2016-09-23] MEDS: GLUCOTROL PO SCH ×3 (10:00→18:57)
[2016-09-23] MEDS: NORVASC PO SCH (10:00)
--- NOTE | 2016-09-23 10:46 | Operative Report ---
Operative Report Operative Report: Procedure: Right internal jugular tunneled dialysis catheter removal. Date: 09/23/2016 Indication: 61 y/o female no longer in need of dialysis, per nephrology. Physician: Gayle Torres MD Procedure: Informed consent was obtained. While on her hospital bed in the [facility], the patient was prepped and draped in the usual sterile fashion, and a timeout was performed. The catheter exit site was anesthetized with lidocaine subcutaneously. Using blunt dissection, the catheter was freed from the surrounding tissues. The tunneled dialysis catheter was removed in its entirety. Hemostasis was achieved with manual compression at the IJ puncture site. Sterile dressings were placed, and the patient was transported back to her room in stable condition.
--- NOTE | 2016-09-23 11:04 | Progress Note ---
Assessment and Plan - Patient Problems (1) Chronic kidney disease (CKD) stage G5/A1, glomerular filtration rate (GFR) less than or equal to 15 mL/min/1.73 square meter and albuminuria creatinine ratio less than 30 mg/g Current Visit: Yes Status: Acute Plan to address problem: s/p permcath removal family was contacted again this AM, left a message will monitor kidney function upon discharge strict I&O daily weight renal diet (2) Altered mental status Current Visit: Yes Status: Acute Qualifiers: Altered mental status type: unspecified Coma depth: C Coma timing: C Qualified Code(s): R41.82 - Altered mental status, unspecified Plan to address problem: she has h/o dementia, appears to be at baseline (3) Metabolic acidemia Current Visit: Yes Status: Acute Plan to address problem: cont sodium bicarb tabs 1300 mg TID (4) Hypertension Current Visit: No Status: Acute Qualifiers: Hypertension type: H Plan to address problem: will d/c amlodipine and start torsemide 20 mg qday, cont coreg Subjective Date of service: 09/23/16 Principal diagnosis: severe renal failure Interval history: patient had her permcath removed this AM without issues Objective - Vital Signs Vital signs: Vital Signs - 12hr 09/22/16 09/23/16 09/23/16 23:08 00:00 04:00 Temperature 98.0 F 98.0 F Pulse Rate [ 89 76 Right Radial] Respiratory 20 20 Rate Blood Pressure 170/92 Blood Pressure 187/79 119/58 [Right Arm] O2 Sat by Pulse 97 98 Oximetry 09/23/16 07:29 Temperature 98.3 F Pulse Rate [ 73 Right Radial] Respiratory 20 Rate Blood Pressure Blood Pressure 109/78 [Right Arm] O2 Sat by Pulse 100 Oximetry - General Appearance General appearance: well-developed, well-nourished EENT: ATNC, PERRL, mucous membranes moist Neck: no JVD, no carotid bruit Respiratory: Present: Clear to Ascultation, Normal Exam Cardiology: regular, S1S2 Gastrointestinal: normoactive bowel sounds, no tenderness, no distended, no masses Integumentary: no rash, warm and dry Neurologic: no focal deficit, no asterixis, alert and oriented x3 Musculoskeletal: other (no edema in BLE) Psychiatric: mood/affect appropriate, cooperative - Lab 09/23/16 05:43 09/23/16 05:43 Most recent lab results Calcium 8.6 mg/dL (8.4-10.2) 09/23/16 05:43 Phosphorus 2.00 mg/dL (2.5-4.5) L 09/23/16 05:43 Magnesium 1.90 mg/dL (1.7-2.3) 09/22/16 08:28 Urine Creatinine 127.6 mg/dL (0.1-20.0) H 09/21/16 16:15
[2016-09-23] MEDS: SODIUM BICARBONATE PO SCH ×4 (11:46→20:48)
[2016-09-23] MEDS: NEURONTIN PO SCH (11:47)
[2016-09-23] MEDS: ROCEPHIN/NS 1 GM/50 ML 1 GM/50 ML BAG IV SCH (11:48)
[2016-09-23] MEDS: PLAVIX PO SCH (11:48)
[2016-09-23] MEDS: DEMADEX PO SCH (18:12)
[2016-09-23] MEDS: LOVENOX SUB-Q SCH (22:14)
[2016-09-24] MEDS: NOVOLOG SUB-Q SCH ×5 (00:05→22:45)
[2016-09-24 07:23] LABS: Basophils % (Auto) 0.4 % (0.0-1.8); Eosinophils % (Auto) 3.1 % (0.0-4.3); Hematocrit 32.4 % (30.3-42.9); Hemoglobin 10.4 gm/dl (10.1-14.3); Mean Corpuscular HGB Conc 32 % (30-34); Mean Corpuscular Hemoglobin 29 pg (28-32); Mean Corpuscular Volume 90 fl (79-97); Platelet Count 172 K/mm3 (140-440); Red Cell Distribution Width 13.6 % (13.2-15.2); White Blood Count 6.2 K/mm3 (4.5-11.0)
[2016-09-24 07:42] LABS: BUN/Creatinine Ratio 16.66; Phosphorous 2.2 mg/dL (2.5-4.5); Potassium 4.3 mmol/L (3.6-5.0)
[2016-09-24] MEDS: SODIUM BICARBONATE PO SCH ×3 (08:45→22:46)
--- NOTE | 2016-09-24 09:50 | Progress Note ---
Assessment and Plan Assessment and plan: Toxic metabolic encephalopathy with altered mental status. MRI Brain pending. She has baseline dementia. Neurochecks Q 4h. Chronic kidney disease stage 5. Patient is status post catheter removal for dialysis. Tool Liaison states patient no longer needs dialysis. Hypertension. Continue BP meds. Hyperlipidemia Diabetes mellitus type 2. Continue to monitor fingerstick glucose qac and HS. On glipizide Dementia. Seizure disorder. Continue Keppra History of stroke. On Plavix CAD. On Plavix Failure to thrive, debility. Family says they cannot take care of her at home anymore. Discussed with field nurse case manager. Awaiting placement History Interval history: No new issues overnight. Hospitalist Physical - Constitutional Vitals: Temp Pulse Resp BP Pulse Ox 99.0 F 76 18 121/70 100 09/24/16 00:00 09/24/16 00:00 09/24/16 00:00 09/24/16 00:00 09/24/16 00:00 General appearance: Present: mild distress - EENT Eyes: Present: PERRL, EOM intact ENT: hearing intact, clear oral mucosa, dentition normal - Neck Neck: Present: supple, normal ROM - Respiratory Respiratory effort: normal Respiratory: bilateral: CTA - Cardiovascular Rhythm: regular Heart Sounds: Present: S1 & S2. Absent: gallop, rub - Extremities Extremities: no ischemia, No edema, Full ROM - Abdominal General gastrointestinal: soft, non-tender, non-distended, normal bowel sounds - Integumentary Integumentary: Present: clear, warm, dry - Neurologic Neurologic: CNII-XII intact, moves all extremities Results - Labs CBC & Chem 7: 09/24/16 06:46 09/24/16 06:46 Labs: Laboratory Last Values WBC 6.2 K/mm3 (4.5-11.0) 09/24/16 06:46 RBC 3.60 M/mm3 (3.65-5.03) L 09/24/16 06:46 Hgb 10.4 gm/dl (10.1-14.3) 09/24/16 06:46 Hct 32.4 % (30.3-42.9) 09/24/16 06:46 MCV 90 fl (79-97) 09/24/16 06:46 MCH 29 pg (28-32) 09/24/16 06:46 MCHC 32 % (30-34) 09/24/16 06:46 RDW 13.6 % (13.2-15.2) 09/24/16 06:46 Plt Count 172 K/mm3 (140-440) 09/24/16 06:46 Lymph % (Auto) 23.4 % (13.4-35.0) 09/24/16 06:46 [place] % (Auto) 15.2 % (0.0-7.3) H 09/24/16 06:46 Eos % (Auto) 3.1 % (0.0-4.3) 09/24/16 06:46 Baso % (Auto) 0.4 % (0.0-1.8) 09/24/16 06:46 Lymph # 1.4 K/mm3 (1.2-5.4) 09/24/16 06:46 [place] # 0.9 K/mm3 (0.0-0.8) H 09/24/16 06:46 Eos # 0.2 K/mm3 (0.0-0.4) 09/24/16 06:46 Baso # 0.0 K/mm3 (0.0-0.1) 09/24/16 06:46 Seg Neutrophils % 57.9 % (40.0-70.0) 09/24/16 06:46 Seg Neutrophils # 3.6 K/mm3 (1.8-7.7) 09/24/16 06:46 Sodium 137 mmol/L (137-145) 09/24/16 06:46 Potassium 4.3 mmol/L (3.6-5.0) 09/24/16 06:46 Chloride 104.0 mmol/L (98-107) 09/24/16 06:46 Carbon Dioxide 20 mmol/L (22-30) L 09/24/16 06:46 Anion Gap 17 mmol/L 09/24/16 06:46 BUN 30 mg/dL (7-17) H 09/24/16 06:46 Creatinine 1.8 mg/dL (0.7-1.2) H 09/24/16 06:46 Estimated GFR 35 ml/min 09/24/16 06:46 BUN/Creatinine Ratio 16.66 % 09/24/16 06:46 Glucose 122 mg/dL (65-100) H 09/24/16 06:46 POC Glucose 124 (70-105) H 09/24/16 06:15 Calcium 9.0 mg/dL (8.4-10.2) 09/24/16 06:46 Phosphorus 2.20 mg/dL (2.5-4.5) L 09/24/16 06:46 Magnesium 1.90 mg/dL (1.7-2.3) 09/22/16 08:28 Total Bilirubin 0.30 mg/dL (0.1-1.2) 09/18/16 15:40 AST 10 units/L (5-40) 09/18/16 15:40 ALT 9 units/L (7-56) 09/18/16 15:40 Alkaline Phosphatase 105 units/L (35-129) 09/18/16 15:40 Troponin T < 0.010 ng/mL (0.00-0.029) 09/18/16 16:41 NT-Pro-B Natriuret Pep 1254 pg/mL (0-900) H 09/18/16 15:40 Total Protein 7.4 g/dL (6.3-8.2) 09/18/16 15:40 Albumin 3.4 g/dL (3.9-5) L 09/18/16 15:40 Albumin/Globulin Ratio 0.9 % 09/18/16 15:40 TSH 0.020 mlU/mL (0.270-4.200) L 09/18/16 15:40 Free T4 3.20 ng/dL (0.76-1.46) H 09/18/16 16:41 Urine Color Yellow (Yellow) 09/18/16 15:57 Urine Turbidity Clear (Clear) 09/18/16 15:57 Urine pH 5.0 (5.0-7.0) 09/18/16 15:57 Ur Specific [place] 1.018 (1.003-1.030) 09/18/16 15:57 Urine Protein 100 mg/dl mg/dL (Negative) 09/18/16 15:57 Urine Glucose (UA) 50 mg/dL (Negative) 09/18/16 15:57 Urine Ketones Neg mg/dL (Negative) 09/18/16 15:57 Urine Blood Neg (Negative) 09/18/16 15:57 Urine Nitrite Neg (Negative) 09/18/16 15:57 Urine Bilirubin Neg (Negative) 09/18/16 15:57 Urine Urobilinogen < 2.0 mg/dL (<2.0) 09/18/16 15:57 Ur Leukocyte Esterase Neg (Negative) 09/18/16 15:57 Urine WBC (Auto) < 1.0 /HPF (0.0-6.0) 09/18/16 15:57 Urine RBC (Auto) 1.0 /HPF (0.0-6.0) 09/18/16 15:57 Urine Bacteria (Auto) 2+ /HPF (Negative) 09/18/16 15:57 Hyaline Casts 1 /LPF 09/18/16 15:57 Urine Mucus Few /HPF 09/18/16 15:57 Urine Total Volume 600 09/21/16 16:15 Urine Creatinine 127.6 mg/dL (0.1-20.0) H 09/21/16 16:15 Height (in) 62.0 inches 09/21/16 16:15 Weight (lb) 139.3 lbs 09/21/16 16:15 Creatinine Clearance 28 09/21/16 16:15
--- NOTE | 2016-09-24 10:00 | Progress Note ---
Assessment and Plan - Patient Problems (1) Chronic kidney disease (CKD) stage G5/A1, glomerular filtration rate (GFR) less than or equal to 15 mL/min/1.73 square meter and albuminuria creatinine ratio less than 30 mg/g Current Visit: Yes Status: Acute Plan to address problem: s/p permcath removal 09/23 I talked to the sister yesterday, informed her that Ms Romeo will no longer needs dialysis and permcath was removed, I also told her she will need to f/u with Dr Anderson upon discharge stable kidney function and lytes, Ok to be discharged from renal standpoint strict I&O daily weight renal diet (2) Altered mental status Current Visit: Yes Status: Acute Qualifiers: Altered mental status type: unspecified Coma depth: C Coma timing: C Qualified Code(s): R41.82 - Altered mental status, unspecified Plan to address problem: she has h/o dementia, appears to be at baseline MRI today (3) Metabolic acidemia Current Visit: Yes Status: Acute Plan to address problem: cont sodium bicarb tabs 1300 mg TID (4) Hypertension Current Visit: No Status: Acute Qualifiers: Hypertension type: H Plan to address problem: cont torsemide and coreg Subjective Date of service: 09/24/16 Principal diagnosis: severe renal failure Interval history: appears comfortable, no overnight events per nursing staff Objective - Vital Signs Vital signs: Vital Signs - 12hr 09/23/16 09/24/16 22:15 00:00 Temperature 99.0 F Pulse Rate 73 Pulse Rate [ 76 Right Radial] Respiratory 18 Rate Blood Pressure 118/70 Blood Pressure 121/70 [Right Arm] O2 Sat by Pulse 100 Oximetry - General Appearance General appearance: well-developed, well-nourished EENT: ATNC, PERRL, mucous membranes moist Neck: no JVD, no carotid bruit Respiratory: Present: Clear to Ascultation Cardiology: regular, S1S2 Gastrointestinal: normoactive bowel sounds, no tenderness, no distended, no guarding Integumentary: no rash, warm and dry Neurologic: no focal deficit, no asterixis Musculoskeletal: other (no edema in BLE) Psychiatric: mood/affect appropriate, cooperative - Lab 09/24/16 06:46 09/24/16 06:46 Most recent lab results Calcium 9.0 mg/dL (8.4-10.2) 09/24/16 06:46 Phosphorus 2.20 mg/dL (2.5-4.5) L 09/24/16 06:46 Magnesium 1.90 mg/dL (1.7-2.3) 09/22/16 08:28 Urine Creatinine 127.6 mg/dL (0.1-20.0) H 09/21/16 16:15
--- NOTE | 2016-09-24 10:51 | Magnetic Resonance Report ---
MRI scan of brain: History: Altered mental status. Technique: Multiplanar, multisequence images were obtained without contrast injection. Findings: No evidence of restricted diffusion. Ventricles are normal in size and midline in location. Periventricular areas of hyperintensity without corresponding restricted diffusion. No evidence of acute ischemia, hemorrhage or mass. No extra-axial fluid collection. Normal brainstem and cerebellum. Normal sinuses and mastoid air cells. Impression: No acute intracranial abnormality. Small vessel ischemic changes.
[2016-09-24] MEDS: ROCEPHIN/NS 1 GM/50 ML 1 GM/50 ML BAG IV SCH (11:16)
[2016-09-24] MEDS: GLUCOTROL PO SCH (11:17)
[2016-09-24] MEDS: DEMADEX PO SCH (11:17)
[2016-09-24] MEDS: NEURONTIN PO SCH (11:17)
[2016-09-24] MEDS: COREG PO SCH ×2 (11:17→22:34)
[2016-09-24] MEDS: PLAVIX PO SCH (11:18)
[2016-09-24] MEDS: KEPPRA PO SCH ×2 (11:18→22:33)
[2016-09-24] MEDS: LOVENOX SUB-Q SCH (22:33)
[2016-09-25 06:00] LABS: Basophils % (Auto) 0.5 % (0.0-1.8); Eosinophils % (Auto) 3.7 % (0.0-4.3); Hematocrit 34.6 % (30.3-42.9); Hemoglobin 10.9 gm/dl (10.1-14.3); Mean Corpuscular HGB Conc 32 % (30-34); Mean Corpuscular Hemoglobin 29 pg (28-32); Mean Corpuscular Volume 91 fl (79-97); Platelet Count 165 K/mm3 (140-440); Red Cell Distribution Width 13.6 % (13.2-15.2); White Blood Count 5.1 K/mm3 (4.5-11.0)
[2016-09-25 06:10] LABS: BUN/Creatinine Ratio 15.78; Calcium 8.9 mg/dL (8.4-10.2); Chloride 103.1 mmol/L (98-107); Phosphorous 3.1 mg/dL (2.5-4.5); Potassium 4.3 mmol/L (3.6-5.0)
[2016-09-25] MEDS: NOVOLOG SUB-Q SCH ×2 (08:00→12:00)
--- NOTE | 2016-09-25 08:27 | Discharge Summary ---
Providers - Providers Date of Admission: 09/18/16 18:45 Date of discharge: 09/25/16 Attending physician: BRANDY REYES 09/18/16 Consult to Cardiac Rehabilitation [CONS] Routine Reason For Exam: Phase I 09/19/16 12:41 Consult to Physician [CONS] Routine Consulting Provider: ALMAZ ABDI Reason For Exam: Chronic kidney disease Place consult to:: dr. abdi Notified:: cell phone Phone number called:: [phone] Was contact made?: No Time called:: 15:04 Comment:: left messege/ office instructed me to call cell phone 09/20/16 09:16 Occupational Therapy Evaluate and Treat [CONS] Routine Comment: Reason For Exam: generalized weakness Physical Therapy Evaluation and Treat [CONS] Routine Comment: Reason For Exam: generalized weakness 09/22/16 12:46 Consult to Physician [CONS] Routine Consulting Provider: DAVIDE GALVAN Reason For Exam: d/c permcath Place consult to:: Dr Bueno Notified:: yes Primary care physician: NAIL MILL WORKER Hospitalization Reason for admission: AMS Condition: Fair Hospital course: 61 YO Female with Dementia, HTN, CVA, [place], CAD, Seizure, OA, DM presented through the emergency department with complaints of progressive weakness and altered mentation. Patient was also noted to have hypotension upon arrival to the emergency room. Patient was admitted with diagnosis of toxic metabolic encephalopathy which slowly resolved after admission. MRI of the brain was negative for any acute findings. Patient's mental status returned to baseline. Patient does have some underlying Alzheimer's dementia. Patient was also seen by nephrology consultation for chronic kidney disease stage 5. Nephrology felt that the patient had no further need for hemodialysis and perm cath was removed. Patient did have a metabolic acidemia on admission that was treated with sodium bicarbonate which resolved as well. Family reported that they were unable to take care of the patient at home due to adult failure to thrive and general debility. Physical therapy in case management will consult and felt that the patient should be discharged to [facility] facility. Dedicated discharge time 32 minutes. Disposition: [id number] [facility] Time spent for discharge: 32 - Discharge Diagnoses (1) Altered mental status Status: Acute Qualifiers: Altered mental status type: unspecified Coma depth: C Coma timing: C Qualified Code(s): R41.82 - Altered mental status, unspecified Comment: Altered mental status resolved was secondary to hypoglycemia. And some dehydration. (2) Chronic kidney disease (CKD) stage G5/A1, glomerular filtration rate (GFR) less than or equal to 15 mL/min/1.73 square meter and albuminuria creatinine ratio less than 30 mg/g Status: Acute (3) Metabolic acidemia Status: Acute (4) Chronic kidney disease (CKD) Status: Chronic Qualifiers: Chronic kidney disease stage: C (5) Diabetes mellitus Status: Acute Qualifiers: Diabetes mellitus type: D Diabetes mellitus complication status: D Diabetes mellitus complication detail: D Diabetic retinopathy severity: D Proliferative retinopathy type: P Diabetes mellitus macular edema: D Diabetes mellitus intermediate manager insulin use: D Laterality: L Chronic kidney disease stage: C (6) Hypertension Status: Acute Qualifiers: Hypertension type: H Core Measure Documentation - Palliative Care Palliative Care/ Comfort Measures: Not Applicable - Core Measures Any of the following diagnoses?: none Exam - Constitutional Vitals: Temp Pulse Resp BP Pulse Ox 98.5 F 82 20 166/75 99 09/25/16 03:10 09/25/16 03:10 09/25/16 04:33 09/25/16 03:10 09/25/16 03:10 General appearance: Present: no acute distress, well-nourished - EENT Eyes: Present: PERRL ENT: hearing intact, clear oral mucosa - Neck Neck: Present: supple, normal ROM - Respiratory Respiratory effort: normal Respiratory: bilateral: CTA - Cardiovascular Heart Sounds: Present: S1 & S2. Absent: rub, click - Extremities Extremities: pulses symmetrical, No edema Peripheral Pulses: within normal limits - Abdominal General gastrointestinal: Present: soft, non-tender, non-distended, normal bowel sounds Female genitourinary: Present: normal - Integumentary Integumentary: Present: clear, warm, dry - Musculoskeletal Musculoskeletal: gait normal, strength equal bilaterally - Psychiatric Psychiatric: appropriate mood/affect, intact judgment & insight - Neurologic Neurologic: CNII-XII intact, moves all extremities Plan Activity: advance as tolerated Weight Bearing Status: Weight Bear as Tolerated Diet: renal Follow up with: PRIMARY CAREMD [Primary Care Provider] - 3-5 Days
[2016-09-25] MEDS: SODIUM BICARBONATE PO SCH (08:35)
[2016-09-25 09:07] VITALS: BP 121/62
[2016-09-25] MEDS ORDERED: VITAMIN D2 PO SCH (10:00)
[2016-09-25] MEDS: GLUCOTROL PO SCH (10:41)
[2016-09-25] MEDS: COREG PO SCH (10:41)
[2016-09-25] MEDS: NEURONTIN PO SCH (10:41)
[2016-09-25] MEDS: PLAVIX PO SCH (10:41)
[2016-09-25] MEDS: ROCEPHIN/NS 1 GM/50 ML 1 GM/50 ML BAG IV SCH (10:42)
[2016-09-25] MEDS: KEPPRA PO SCH (10:42)
[2016-09-25] MEDS: DEMADEX PO SCH (10:44)
--- NOTE | 2016-09-25 11:14 | Progress Note ---
Assessment and Plan - Patient Problems (1) Chronic kidney disease (CKD) stage G5/A1, glomerular filtration rate (GFR) less than or equal to 15 mL/min/1.73 square meter and albuminuria creatinine ratio less than 30 mg/g Current Visit: Yes Status: Acute Plan to address problem: Renal function reviewed. Serum creatinine 1.9 today. Patient has recovered renal function. Perm-catheter was removed on 09/23/16 Monitor I&O's Obtain daily weight Renal diet Ok to be discharged from renal standpoint (2) Altered mental status Current Visit: Yes Status: Acute Qualifiers: Altered mental status type: unspecified Coma depth: C Coma timing: C Qualified Code(s): R41.82 - Altered mental status, unspecified Plan to address problem: Mentation at baseline. MRI showed no acute intracranial abnormality. (3) Hypertensive chronic kidney disease Current Visit: Yes Status: Acute Plan to address problem: Blood pressures are stable Subjective Date of service: 09/25/16 Principal diagnosis: severe renal failure Interval history: Patient seen lying in bed. No complaints voiced. Objective - Vital Signs Vital signs: Vital Signs - 12hr 09/24/16 09/25/16 09/25/16 23:15 01:46 03:10 Temperature 98.3 F 98.5 F Pulse Rate [ 79 82 Left Radial] Respiratory 20 20 20 Rate Respiratory Rate [Denies] Blood Pressure 168/79 166/75 [Left Arm] O2 Sat by Pulse 100 99 Oximetry 09/25/16 09/25/16 04:33 07:00 Temperature 97.9 F Pulse Rate [ 70 Left Radial] Respiratory 18 Rate Respiratory 20 Rate [Denies] Blood Pressure 121/62 [Left Arm] O2 Sat by Pulse 100 Oximetry - General Appearance General appearance: well-developed, appears stated age EENT: ATNC, PERRL Neck: no JVD, supple Respiratory: Present: Clear to Ascultation Cardiology: regular, S1S2 Gastrointestinal: normoactive bowel sounds Integumentary: warm and dry Neurologic: alert and oriented x3 Musculoskeletal: no deformities, no erythema, no cyanosis, no clubbing Psychiatric: cooperative - Lab 09/25/16 04:44 09/25/16 04:44 Most recent lab results Calcium 8.9 mg/dL (8.4-10.2) 09/25/16 04:44 Phosphorus 3.10 mg/dL (2.5-4.5) D 09/25/16 04:44 Magnesium 1.90 mg/dL (1.7-2.3) 09/22/16 08:28 Urine Creatinine 127.6 mg/dL (0.1-20.0) H 09/21/16 16:15
== END 2016-09-25 14:30 | DRG 314 ==
LOC: ED 14:22 → 3A 18:45
PROVIDERS: ADMIT Internal Medicine; ATTEND Hospitalist
PROC: 05PY33Z Removal of Infusion Device from Upper Vein, Percutaneous Approach (ICD-10-PCS; principal; 2016-09-23)
DX: I95.9 Hypotension, unspecified (principal); G92 Toxic encephalopathy; N17.9 Acute kidney failure, unspecified; E87.2 Acidosis; N39.0 Urinary tract infection, site not specified; I13.0 Hypertensive heart and chronic kidney disease with heart failure and stage 1 through stage 4 chronic kidney disease, or unspecified chronic kidney disease; N18.5 Chronic kidney disease, stage 5; I50.9 Heart failure, unspecified; K21.9 Gastro-esophageal reflux disease without esophagitis; M19.90 Unspecified osteoarthritis, unspecified site; N18.9 Chronic kidney disease, unspecified; E87.6 Hypokalemia; I25.10 Atherosclerotic heart disease of native coronary artery without angina pectoris; G40.909 Epilepsy, unspecified, not intractable, without status epilepticus; E78.5 Hyperlipidemia, unspecified; E11.649 Type 2 diabetes mellitus with hypoglycemia without coma; E86.0 Dehydration; R62.7 Adult failure to thrive; G30.9 Alzheimer's disease, unspecified; F02.80 Dementia in other diseases classified elsewhere, unspecified severity, without behavioral disturbance, psychotic disturbance, mood disturbance, and anxiety; E11.22 Type 2 diabetes mellitus with diabetic chronic kidney disease; Z88.8 Allergy status to other drugs, medicaments and biological substances; Z86.73 Personal history of transient ischemic attack (TIA), and cerebral infarction without residual deficits; Z95.1 Presence of aortocoronary bypass graft; I25.2 Old myocardial infarction; Z82.49 Family history of ischemic heart disease and other diseases of the circulatory system
CPT/HCPCS: 36415; 36589; 70450; 70551; 71010; 80048; 80053; 81001; 82271; 82565; 82570; 82575; 82962; 83735; 83880; 84100; 84439; 84443; 84484; 85025; 85027; 87040; 87086; 93005; 93010; 93306; 96360; 99285; G8978-GP; G8979-GP; G8987-GO; G8988-GO; J0696; J1650; J1815; J7050

== ENCOUNTER 2017-01-01 20:53 | Inpatient (IN) | payer MEDICARE ==
[2017-01-01 22:53] LABS: Basophils % (Auto) 0.6 % (0.0-1.8); Eosinophils % (Auto) 3.1 % (0.0-4.3); Hematocrit 34.4 % (30.3-42.9); Hemoglobin 11.3 gm/dl (10.1-14.3); Mean Corpuscular HGB Conc 33 % (30-34); Mean Corpuscular Hemoglobin 32 pg (28-32); Mean Corpuscular Volume 96 fl (79-97); Platelet Count 205 K/mm3 (140-440); Red Blood Count 3.58 M/mm3 (3.65-5.03); Red Cell Distribution Width 15.3 % (13.2-15.2); White Blood Count 6.4 K/mm3 (4.5-11.0)
[2017-01-01 23:07] LABS: Anion Gap 22 mmol/L; BUN/Creatinine Ratio 24; Blood Urea Nitrogen 63 mg/dL (7-17); Calcium 8.9 mg/dL (8.4-10.2); Carbon Dioxide 19 mmol/L (22-30); Chloride 103.3 mmol/L (98-107); Glucose 224 mg/dL (65-100); Potassium 5.2 mmol/L (3.6-5.0); Sodium 139 mmol/L (137-145)
[2017-01-01] MEDS ORDERED: FIORICET PO ONE (23:35)
--- NOTE | 2017-01-01 23:37 | Emergency Department Report ---
HPI - General Chief Complaint: Altered Mental Status Time Seen by Provider: 01/01/17 23:12 - HPI HPI: Room 22 The patient is a 61-year-old female presenting with a chief complaint of unresponsiveness. 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 The patient was given her nightly medications approximately 20 minutes later family states the patient became unresponsive clammy and diaphoretic. The patient was apparent was sitting on a stool in the kitchen leaning against another piece of furniture. Family states the patient' s eyes were blinking quickly. Family said the patient was unresponsive for approximately 1 minute but then gradually began coming around and answering questions. The patient states she has had a headache for the past 1.5 hours. The patient currently gives her pain score of 8/10 Location: Head, DATA ARCHITECT Duration: [See above] Quality: Headache, unresponsive Severity: 8/10 Modifying factors: [see above] Context: [see above] Mode of transportation: EMS ED Past Medical Hx - Past Medical History Hx Hypertension: Yes (X 15 YRS) Hx CVA: Yes Hx Heart Attack/AMI: Yes (Triple bypass 2008) Hx Congestive Heart Failure: (pt denies being diagnosed) Hx Diabetes: Yes Hx GERD: Yes Hx Renal Disease: Yes Hx Arthritis: Yes Hx Headaches / Migraines: Yes (MIGRAINES) Hx Seizures: Yes (LAST SEIZURE 09/2015) Hx Dementia: Yes Additional medical history: triple bypass 2008 - Surgical History Hx Open Heart Surgery: Yes (CABG 2008) Additional Surgical History: triple bypass 2008 - Family History Family history: no significant - Social History Smoking Status: Never Smoker Substance Use Type: None - Medications Home Medications: Home Medications Medication Instructions Recorded Confirmed Last Taken Type Vitamin D 50,000 units PO 1XW 03/22/16 09/18/16 05/05/16 10:00 History Carvedilol [Coreg] 25 mg PO BID 09/18/16 09/18/16 Unknown History ALBUTEROL NEB's [Proventil 0.083% 2.5 mg IH Q4HRT PRN #30 nebu 09/25/16 Unknown Rx NEBS] Acetaminophen [Acetaminophen TAB] 650 mg PO Q4H PRN #30 tablet 09/25/16 Unknown Rx Bisacodyl [Dulcolax suppos] 10 mg [place] QDAY PRN #30 supp.rect 09/25/16 Unknown Rx Carvedilol [Coreg] 25 mg PO BID tablet 09/25/16 Unknown Rx Clopidogrel [Plavix] 75 mg PO DAILY tablet 09/25/16 Unknown Rx Ergocalciferol [Vitamin D2] 50,000 unit PO QWEEK capsule 09/25/16 Unknown Rx Gabapentin [Neurontin] 300 mg PO QDAY capsule 09/25/16 Unknown Rx Magnesium Hydroxide [Milk of 30 ml PO Q4H PRN #30 oral.liqd 09/25/16 Unknown Rx Magnesia] Ondansetron [Zofran INJ] 4 mg IV Q8H PRN #30 vial 09/25/16 Unknown Rx Sodium Bicarbonate 1,300 mg PO TID tablet 09/25/16 Unknown Rx Torsemide [Demadex] 20 mg PO QDAY tablet 09/25/16 Unknown Rx glipiZIDE [Glucotrol] 5 mg PO QDAY tablet 09/25/16 Unknown Rx levETIRAcetam [Keppra TAB] 500 mg PO BID tablet 09/25/16 Unknown Rx ED Review of Systems ROS: Stated complaint: LOW B/P Other details as noted in HPI Comment: All other systems reviewed and negative Constitutional: diaphoresis. denies: chills, fever Eyes: denies: eye pain, eye discharge, vision change ENT: denies: ear pain, throat pain Respiratory: denies: cough, shortness of breath, wheezing Cardiovascular: denies: chest pain, palpitations Endocrine: no symptoms reported Gastrointestinal: denies: abdominal pain, nausea, diarrhea Genitourinary: denies: urgency, dysuria, discharge Musculoskeletal: denies: back pain, joint swelling, arthralgia Skin: denies: rash, lesions Neurological: headache, other (unresponsive) Psychiatric: denies: anxiety, depression Hematological/Lymphatic: denies: easy bleeding, easy bruising Physical Exam - Physical Exam Vital Signs: Vital Signs 01/01/17 21:53 Temperature 97.5 F L Pulse Rate 60 Respiratory 18 Rate Blood Pressure 149/77 O2 Sat by Pulse 100 Oximetry Physical Exam: GENERAL: The patient is well-developed well-nourished female lying on stretcher multiple N Blank did not appear to be in acute distress. [] HEENT: Normocephalic. Atraumatic. Extraocular motions are intact. Patient has moist mucous membranes. NECK: Supple. No meningitic signs are noted. Trachea midline CHEST/LUNGS: Clear to auscultation. There is no respiratory distress noted. HEART/CARDIOVASCULAR: Regular. There is no tachycardia. There is no gallop rub or murmur. ABDOMEN: Abdomen is soft, nontender. Patient has normal bowel sounds. There is no abdominal distention. SKIN: There is no rash. There is no edema. There is no diaphoresis. NEURO: The patient is awake, alert, and oriented. The patient is cooperative. The patient has no focal neurologic deficits. The patient has normal speech. 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 Moves all extremities well. Normal sensation throughout MUSCULOSKELETAL: There is no evidence of acute injury. ED Course Vital Signs 01/01/17 21:53 Temperature 97.5 F L Pulse Rate 60 Respiratory 18 Rate Blood Pressure 149/77 O2 Sat by Pulse 100 Oximetry ED Medical Decision Making - Lab Data Result diagrams: 01/01/17 22:31 01/01/17 22:31 Laboratory Tests 01/01/17 01/01/17 22:31 22:31 WBC 6.4 RBC 3.58 L Hgb 11.3 Hct 34.4 MCV 96 MCH 32 MCHC 33 RDW 15.3 H Plt Count 205 Lymph % (Auto) 13.5 [place] % (Auto) 7.1 Eos % (Auto) 3.1 Baso % (Auto) 0.6 Lymph # 0.9 L [place] # 0.5 Eos # 0.2 Baso # 0.0 Seg Neutrophils % 75.7 H Seg Neutrophils # 4.9 Sodium 139 Potassium 5.2 H Chloride 103.3 Carbon Dioxide 19 L Anion Gap 22 BUN 63 H Creatinine 2.6 H Estimated GFR 23 BUN/Creatinine Ratio 24 Glucose 224 H Calcium 8.9 Troponin T < 0.010 - EKG Data -: EKG Interpreted by Tx EKG shows normal: sinus rhythm Rate: bradycardia (59 bpm) - EKG Data When compared to previous EKG there are: no significant change Interpretation: unchanged when compared t (09/19/2016) - Radiology Data Radiology results: report reviewed (CT head), image reviewed (CT head) CT head (regular radiologist)-no acute intracranial abnormality. - Differential Diagnosis syncope, ACS, seizure, ICH, Critical care attestation.: If time is entered above; I have spent that time in minutes in the direct care of this critically ill patient, excluding procedure time. ED Disposition Clinical Impression: Syncope, Headache Disposition: DC-09 OP ADMIT IP TO THIS HOSP Is pt being admited?: Yes Does the pt Need Aspirin: Yes Condition: Fair Instructions: Syncope (ED) Referrals: PRIMARY CARE,MD [Primary Care Provider] - 3-5 Days Time of Disposition: 01:23 (hospitalist paged)
--- NOTE | 2017-01-02 01:10 | Cat Scan Report ---
FINAL REPORT EXAM: CT HEAD/BRAIN W/O CONTRAST. HISTORY: Syncope. TECHNIQUE: Unenhanced axial CT images of the brain were obtained. Comparison is made with prior study 09/18/2016. FINDINGS: There is mild diffuse generalized volume loss, appropriate for patient's age, stable. There are patchy areas of low-attenuation in the periventricular and subcortical white matter, which are nonspecific but most likely chronic small vessel ischemic disease, stable. A small prior chronic lacunar infarction in the anterior right thalamus/basal ganglia is also stable. The laboy-white differentiation is maintained. There is no extra-axial fluid collection, mass, mass effect, midline shift, hydrocephalus, or acute intracranial hemorrhage. There is minimal sinus mucosal thickening in scattered bilateral ethmoid air cells, slightly decreased compared to prior exam. The remainder of the visualized paranasal sinuses and mastoid air cells are clear. There is no skull fracture or other osseous abnormality. The visualized orbits and globes are grossly unremarkable. IMPRESSION: 1. No acute intracranial abnormality. 2. Probable chronic small vessel ischemic disease, overall without significant interval change compared to 09/18/2016.
[2017-01-02] MEDS ORDERED: ASPIRIN PO ONE (01:23)
--- NOTE | 2017-01-02 02:05 | History and Physical Report ---
History of Present Illness Date of examination: 01/02/17 Chief complaint: Passed out History of present illness: 61-year-old -Japanese female with past medical history significant for CVA, diabetes mellitus type 2, CK D, dementia, hypertension, CAD status post triple bypass brought via EMS for the complaints of altered mental status. Patient was seen her nephrology this morning and after she came back home she took her medications and the patient passed out, patient didn't answer for about 7-8 minutes. patient was calm and clammy, she was blinking her eyes frequently. The patient took her BP meds including clonidine and diabetic medications. Her families called paramedics and brought her here. The paramedics told her her blood pressure was low but her blood sugar was 196. In the ED her BP is marginal. REVIEW OF SYSTEMS: GENERAL: no weight change, no fatigue, no fever HEAD: no head ache EYES: no blurry vision, no acute visual loss EARS: no hearing loss, no discharge, no earache NOSE: no stuffiness, no sneezing, no discharge MOUTH, THROAT AND NECK: no bleeding gums, no sore throat, no swollen neck CARDIAC: no palpitations, no dyspnea on exertion, no orthopnea, no PND, no edema , no chest pain RESPIRATORY: no shortness of breath, no wheeze, no cough, no sputum, no hemoptysis, no asthma GI: no decreased appetite, no nausea, no vomiting, no dysphagia, no diarrhea, no constipation, no abdominal pain URINARY: no change in frequency, no urgency, no polyuria, no hematuria, no incontinence MUSCULOSKELETAL: no muscle weakness, no pain, no joint stiffness NEUROLOGIC: passed out HEMATOLOGIC: no anemia, no easy bruising SKIN: no rashes ENDOCRINE: no heat/cold intolerance, no polyuria, no polydipsia, no thyroid problems PSYCHIATRIC: no anxiety, no depression, no suicidal ideations Past History Past Medical History: CAD, diabetes, hypertension, stroke Past Surgical History: CABG Social history: full code. denies: smoking, alcohol abuse, prescription drug abuse, IV drug use Family history: no significant family history Medications and Allergies Allergies Allergy/AdvReac Type Severity Reaction Status Date / Time Tetracyclines AdvReac Unknown Verified 09/26/14 12:09 Home Medications Medication Instructions Recorded Confirmed Last Taken Type Vitamin D 50,000 units PO 1XW 03/22/16 09/18/16 05/05/16 10:00 History Carvedilol [Coreg] 25 mg PO BID 09/18/16 09/18/16 Unknown History ALBUTEROL NEB's [Proventil 0.083% 2.5 mg IH Q4HRT PRN #30 nebu 09/25/16 Unknown Rx NEBS] Acetaminophen [Acetaminophen TAB] 650 mg PO Q4H PRN #30 tablet 09/25/16 Unknown Rx Bisacodyl [Dulcolax suppos] 10 mg ID QDAY PRN #30 supp.rect 09/25/16 Unknown Rx Carvedilol [Coreg] 25 mg PO BID tablet 09/25/16 Unknown Rx Clopidogrel [Plavix] 75 mg PO DAILY tablet 09/25/16 Unknown Rx Ergocalciferol [Vitamin D2] 50,000 unit PO QWEEK capsule 09/25/16 Unknown Rx Gabapentin [Neurontin] 300 mg PO QDAY capsule 09/25/16 Unknown Rx Magnesium Hydroxide [Milk of 30 ml PO Q4H PRN #30 oral.liqd 09/25/16 Unknown Rx Magnesia] Ondansetron [Zofran INJ] 4 mg IV Q8H PRN #30 vial 09/25/16 Unknown Rx Sodium Bicarbonate 1,300 mg PO TID tablet 09/25/16 Unknown Rx Torsemide [Demadex] 20 mg PO QDAY tablet 09/25/16 Unknown Rx glipiZIDE [Glucotrol] 5 mg PO QDAY tablet 09/25/16 Unknown Rx levETIRAcetam [Keppra TAB] 500 mg PO BID tablet 09/25/16 Unknown Rx Exam - Physical Exam Narrative exam: Not in cardiopulmonary distress. The patient appeared well nourished and normally developed. Vital signs as documented. Head exam is unremarkable. No scleral icterus . Neck is without jugular venous distension, thyromegaly, or carotid bruits. Lungs are clear to auscultation. Cardiac exam reveals regular rate and Rhythm. First and second heart sounds normal. No murmurs, rubs or gallops. Abdominal exam reveals normal bowel sounds, no masses, no organomegaly and no aortic enlargement. Extremities are nonedematous and both femoral and pedal pulses are normal. DIAMOND SANDER: Alert and oriented 2. No focal weakness. - Constitutional Vitals: Temp Pulse Resp BP Pulse Ox 97.5 F L 58 L 13 131/60 96 01/01/17 21:53 01/02/17 01:27 01/02/17 01:27 01/01/17 23:00 01/02/17 01:27 Results - Labs CBC & Chem 7: 01/01/17 22:31 01/01/17 22:31 Labs: Laboratory Last Values WBC 6.4 K/mm3 (4.5-11.0) 01/01/17 22:31 RBC 3.58 M/mm3 (3.65-5.03) L 01/01/17 22:31 Hgb 11.3 gm/dl (10.1-14.3) 01/01/17 22:31 Hct 34.4 % (30.3-42.9) 01/01/17 22:31 MCV 96 fl (79-97) 01/01/17 22:31 MCH 32 pg (28-32) 01/01/17 22:31 MCHC 33 % (30-34) 01/01/17 22:31 RDW 15.3 % (13.2-15.2) H 01/01/17 22:31 Plt Count 205 K/mm3 (140-440) 01/01/17 22:31 Lymph % (Auto) 13.5 % (13.4-35.0) 01/01/17 22:31 [place] % (Auto) 7.1 % (0.0-7.3) 01/01/17 22:31 Eos % (Auto) 3.1 % (0.0-4.3) 01/01/17 22:31 Baso % (Auto) 0.6 % (0.0-1.8) 01/01/17 22:31 Lymph # 0.9 K/mm3 (1.2-5.4) L 01/01/17 22:31 [place] # 0.5 K/mm3 (0.0-0.8) 01/01/17 22:31 Eos # 0.2 K/mm3 (0.0-0.4) 01/01/17 22:31 Baso # 0.0 K/mm3 (0.0-0.1) 01/01/17 22:31 Seg Neutrophils % 75.7 % (40.0-70.0) H 01/01/17 22:31 Seg Neutrophils # 4.9 K/mm3 (1.8-7.7) 01/01/17 22:31 Sodium 139 mmol/L (137-145) 01/01/17 22:31 Potassium 5.2 mmol/L (3.6-5.0) H 01/01/17 22:31 Chloride 103.3 mmol/L (98-107) 01/01/17 22:31 Carbon Dioxide 19 mmol/L (22-30) L 01/01/17 22:31 Anion Gap 22 mmol/L 01/01/17 22:31 BUN 63 mg/dL (7-17) H 01/01/17 22:31 Creatinine 2.6 mg/dL (0.7-1.2) H 01/01/17 22:31 Estimated GFR 23 ml/min 01/01/17 22:31 BUN/Creatinine Ratio 24 % 01/01/17 22:31 Glucose 224 mg/dL (65-100) H 01/01/17 22:31 Calcium 8.9 mg/dL (8.4-10.2) 01/01/17 22:31 Troponin T < 0.010 ng/mL (0.00-0.029) 01/01/17 22:31 - Imaging and Cardiology EKG: image reviewed (No STEMI) CT Scan - head: report reviewed (chronic small vessel ischemic disease) Assessment and Plan Assessment and plan: Autonomic imbalance TIA Previous history of CVA Hypotension likely drug-induced Diabetes mellitus with hyperglycemia Chronic kidney distress Dementia CAD status post CABG - We'll stroke workup - Hold blood pressure medications - Start the patient on aspirin and statin - Continue appropriate home medications - PT/OT DVT prophylaxis - Heparin Disposition - Admit to telemetry floor Advance Directives: Yes VTE prophylaxis?: Chemical Plan of care discussed with patient/family: Yes
[2017-01-02] MEDS ORDERED: MILK OF MAGNESIA PO PRN ×2 (02:55→02:59)
[2017-01-02] MEDS ORDERED: ZOFRAN IV PRN (02:55)
[2017-01-02] MEDS ORDERED: PHENERGAN PR PRN (02:55)
[2017-01-02] MEDS ORDERED: D50W (25GM) Syringe IV PRN (02:55)
[2017-01-02] MEDS ORDERED: SODIUM CHLORIDE FLUSH SYRINGE 10 ML IV PRN (02:55)
[2017-01-02] MEDS ORDERED: REGLAN PO PRN ×2 (02:55→03:15)
[2017-01-02] MEDS ORDERED: DULCOLAX PR PRN (02:55)
[2017-01-02] MEDS ORDERED: PROVENTIL IH PRN (02:59)
[2017-01-02] MEDS ORDERED: HEPARIN ONE (05:34)
[2017-01-02] MEDS: HEPARIN SUB-Q SCH ×3 (05:46→22:25)
[2017-01-02] MEDS ORDERED: NOVOLOG SUB-Q SCH (07:30)
[2017-01-02] MEDS: NOVOLOG SUB-Q SCH ×4 (08:33→22:42)
[2017-01-02] MEDS ORDERED: PEPCID ONE (09:45)
[2017-01-02] MEDS ORDERED: VITAMIN D2 PO SCH (10:00)
[2017-01-02] MEDS ORDERED: PEPCID PO SCH (10:00)
--- NOTE | 2017-01-02 10:27 | Consultation ---
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 renal consult was requested for management of worsening of kidney function. Past History Past Medical History: CAD, diabetes, hypertension, stroke Past Surgical History: CABG Social history: full code. denies: smoking, alcohol abuse, prescription drug abuse, IV drug use Family history: no significant family history Medications and Allergies Allergies Allergy/AdvReac Type Severity Reaction Status Date / Time NSAIDS (Non-Steroidal AdvReac Unknown Verified 01/02/17 05:56 Anti-Inflamma Tetracyclines AdvReac Unknown Verified 09/26/14 12:09 Home Medications Medication Instructions Recorded Confirmed Last Taken Type Carvedilol [Coreg] 12.5 mg PO BID 09/18/16 01/02/17 Unknown History Clopidogrel [Plavix] 75 mg PO DAILY tablet 09/25/16 01/02/17 Unknown Rx Ergocalciferol [Vitamin D2] 50,000 unit PO QWEEK capsule 09/25/16 01/02/17 Unknown Rx Gabapentin [Neurontin] 300 mg PO QDAY capsule 09/25/16 01/02/17 Unknown Rx Torsemide [Demadex] 20 mg PO QDAY tablet 09/25/16 01/02/17 Unknown Rx levETIRAcetam [Keppra TAB] 500 mg PO BID tablet 09/25/16 01/02/17 Unknown Rx Latanoprost 0.005% [Xalatan 0.005%] 1 drop OP QPM 01/02/17 01/02/17 Unknown History Lisinopril [Zestril TAB] 10 mg PO QDAY 01/02/17 01/02/17 Unknown History Sodium Bicarbonate 325 mg PO DAILY 01/02/17 01/02/17 Unknown History glipiZIDE [Glipizide] 5 mg PO QAM 01/02/17 01/02/17 Unknown History glipiZIDE [glipiZIDE XL] 10 mg PO QPM 01/02/17 01/02/17 Unknown History Active Meds: Active Medications Acetaminophen (Tylenol) 650 mg PO Q4H PRN PRN Reason: Pain, Mild (1-3) Albuterol (Proventil) 2.5 mg IH Q4HRT PRN PRN Reason: Shortness Of Breath Aspirin (Aspirin) 325 mg PO QDAY [facility] Bisacodyl (Dulcolax) 10 mg ME QDAY PRN PRN Reason: Constipation Clopidogrel Bisulfate (Plavix) 75 mg PO DAILY [facility] Dextrose (D50w (25gm) Syringe) 50 ml IV PRN PRN PRN Reason: Hypoglycemia Docusate Sodium (Colace) 100 mg PO BID [facility] Ergocalciferol (Vitamin D2) 50,000 unit PO Th [place] Famotidine (Pepcid) 10 mg PO BID [facility] Gabapentin (Neurontin) 300 mg PO QHS [facility] Glipizide (Glucotrol) 5 mg PO QDDIAB [facility] Heparin Sodium (Porcine) (Heparin) 5,000 unit SUB-Q Q8HR [facility] Last Admin: 01/02/17 05:46 Dose: 5,000 unit Sodium Bicarbonate 75 meq/ (Sodium Chloride) 1,075 mls @ 75 mls/hr IV DIRECT [facility] Insulin Aspart (Novolog) 0 units SUB-Q ACHS [facility] PRN Reason: Protocol Last Admin: 01/02/17 08:33 Dose: Not Given Levetiracetam (Keppra) 500 mg PO BID [facility] Magnesium Hydroxide (Milk Of Magnesia) 30 ml PO Q4H PRN PRN Reason: Constipation Metoclopramide HCl (Reglan) 5 mg PO Q6H PRN PRN Reason: Nausea And Vomiting Ondansetron HCl (Zofran) 4 mg IV Q8H PRN PRN Reason: N/V unrelieved by Reglan Promethazine HCl (Phenergan) 25 mg ME Q6H PRN PRN Reason: Nausea And Vomiting Simvastatin (Zocor) 20 mg PO QHS [facility] Sodium Bicarbonate (Sodium Bicarbonate) 1,300 mg PO TID [facility] Sodium Chloride (Sodium Chloride Flush Syringe 10 Ml) 10 ml IV PRN PRN PRN Reason: LINE FLUSH Review of Systems ROS unobtainable: due to mental status Exam - Vital Signs Vital signs: Vital Signs BP Pulse Ox 149/77 100 01/01/17 21:51 01/01/17 21:51 - General Appearance General appearance: well-developed, well-nourished, appears stated age EENT: ATNC, PERRL, mucous membranes moist Neck: Present: neck supple Respiratory: Clear to Ascultation Heart: bradycardia, S1S2 Gastrointestinal: Present: normoactive bowel sounds. Absent: tenderness, distended Integumentary: no rash, warm and dry Neurologic: other (drowsy) Musculoskeletal: Present: other (no edema in BLE) Psychiatric: other (drowsy) Results - Lab Results 01/01/17 22:31 01/01/17 22:31 Most recent lab results Calcium 8.9 mg/dL (8.4-10.2) 01/01/17 22:31 Assessment and Plan - Patient Problems (1) ARF (acute renal failure) Current Visit: No Status: Acute Qualifiers: Acute renal failure type: A Plan to address problem: patient was on dialysis, stopped in 08/31 baseline ~1.9, worsening this admission most likely due to prerenal etiology but cannot r/o ischemic ATN will change IVF to 1/2 NS with sodium bicarb 75 meq @ 75 cc/h will check urine lytes and protein renally dose meds renal diet strict I&O 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 (2) Altered mental status Current Visit: No Status: Acute Qualifiers: Altered mental status type: unspecified Coma depth: C Coma timing: C Qualified Code(s): R41.82 - Altered mental status, unspecified Plan to address problem: negative CT head most likely due to hypotension, normoglycemic (3) Diabetes mellitus Current Visit: No Status: Acute Qualifiers: Diabetes mellitus type: D Diabetes mellitus complication status: D Diabetes mellitus complication detail: D Diabetic retinopathy severity: D Proliferative retinopathy type: P Diabetes mellitus macular edema: D Diabetes mellitus mcfp insulin use: D Laterality: L Chronic kidney disease stage: C Plan to address problem: insulin regimen per primary team (4) Metabolic acidemia Current Visit: No Status: Acute Plan to address problem: IVF as above
--- NOTE | 2017-01-02 12:22 | Magnetic Resonance Report ---
MRI BRAIN WITHOUT CONTRAST INDICATION: Stroke. COMPARISON: Head CT from earlier today and 09/24/2016 MRI. FINDINGS: Noncontrast multiplanar and multisequence MRI of the brain demonstrates stable ventricles and sulci without acute infarct, hemorrhage, mass effect or midline shift. Mild periventricular and few white matter FLAIR and T2 weighted hyperintensities. No abnormal extra axial masses or fluid collections. Normal major intracranial vascular flow voids. Normal posterior fossa with symmetric seventh and eighth nerve complexes and preserved basilar cisterns. Normal eye globes. Slight ethmoid sinusitis. Remainder paranasal sinuses and mastoid air cells appear clear. Normal midline structures without evidence of Chiari malformation. CONCLUSION: No acute intracranial MRI abnormality or significant interval change with microvascular changes and few other incidental findings again noted, as above. Thank you for the opportunity to participate in this patient's care.
--- NOTE | 2017-01-02 12:25 | Magnetic Resonance Report ---
MRA HEAD WITHOUT CONTRAST INDICATION: Stroke. COMPARISON: None similar. FINDINGS: MRA of the head performed without intravenous contrast and demonstrates no evidence of occlusion or vascular malformation. Right vertebral artery dominant. Please note that detection of aneurysms less than 5 mm is limited on this exam. CONCLUSION: Normal study of the [place]. Thank you for the opportunity to participate in this patient's care.
[2017-01-02] MEDS: SODIUM BICARBONATE PO SCH ×3 (13:44→23:09)
[2017-01-02] MEDS: PEPCID PO SCH ×2 (13:45→22:31)
[2017-01-02] MEDS: NACL 0.45% 1000 ML 1,000 ML with SODIUM BICARBONATE 75 MEQ IV SCH (13:46)
[2017-01-02] MEDS: KEPPRA PO SCH ×2 (13:46→22:27)
[2017-01-02] MEDS: ZOCOR PO SCH (22:28)
[2017-01-02] MEDS: COLACE PO SCH ×2 (22:29→23:08)
[2017-01-02] MEDS: NEURONTIN PO SCH (22:31)
[2017-01-02] MEDS: ASPIRIN PO SCH (23:08)
[2017-01-02] MEDS: PLAVIX PO SCH (23:08)
[2017-01-02] MEDS: GLUCOTROL PO SCH (23:08)
[2017-01-03] MEDS: HEPARIN SUB-Q SCH ×3 (05:36→22:47)
[2017-01-03 07:14] LABS: Eosinophils % (Auto) 6.8 % (0.0-4.3); Hematocrit 30.7 % (30.3-42.9); Hemoglobin 10.5 gm/dl (10.1-14.3); Mean Corpuscular HGB Conc 34 % (30-34); Mean Corpuscular Hemoglobin 32 pg (28-32); Mean Corpuscular Volume 92 fl (79-97); Platelet Count 176 K/mm3 (140-440); Red Blood Count 3.32 M/mm3 (3.65-5.03); White Blood Count 4.1 K/mm3 (4.5-11.0)
[2017-01-03 07:35] LABS: Calcium 8.1 mg/dL (8.4-10.2); Chloride 108.1 mmol/L (98-107); Phosphorous 3.5 mg/dL (2.5-4.5); Potassium 4.5 mmol/L (3.6-5.0)
[2017-01-03] MEDS: PLAVIX PO SCH (10:59)
[2017-01-03] MEDS: SODIUM BICARBONATE PO SCH ×3 (10:59→22:51)
[2017-01-03] MEDS: ASPIRIN PO SCH (10:59)
[2017-01-03] MEDS: PEPCID PO SCH ×2 (10:59→22:47)
[2017-01-03] MEDS: COLACE PO SCH ×2 (10:59→22:47)
[2017-01-03] MEDS: GLUCOTROL PO SCH (10:59)
[2017-01-03] MEDS: KEPPRA PO SCH ×2 (10:59→22:47)
[2017-01-03] MEDS: NOVOLOG SUB-Q SCH ×4 (11:00→22:51)
--- NOTE | 2017-01-03 11:49 | Progress Note ---
Assessment and Plan Acute Renal failure possible pre renal vs ATN CKD stage 3-4: -BL Cr 1.9 -Cr slightly up, making urine. -Continue IVFs with 1/2NS with 75 meq of HCO3 at 75 cc/hr. -Urine studies, CK, CXR, BNP ordered. -Renal US ordered -Renally dose all meds and avoid nephrotoxic meds -Strict I/Os Syncope: -CT/MRI brain -ve. -Could have due to hypotension from BP meds -Per Primary Essential Hypertension: -BP meds on hold due to recent hypotension -Will check orthostatic VS Diabetes Mellitus type 2 on insulin: -Per primary Metabolic acidosis: -On bicarb drip and NaHCO3 tabs -Monitor Coronary artery disease s/p CABG: -On plavix and statin -Denies CP, getting TTE -Pt also bradycardic, may need Cards eval. Hyperlipidemia, chronic: -Target LDL <70 -On statin Plan d/w bedside RN and sister at bedside. Miguel Munguia MD Nephrology, Hypertension, Dialysis, Transplantation Phone no: [phone] Subjective Date of service: 01/03/17 Interval history: Going for TTE today, Awake. Sister at bedside. Objective - Exam Narrative Exam: GE: Awake HEENT: Normocephalic Neck: No JVD Chest: CTAB CVS: RRR Abd: Soft/BS+ Ext: No cce Neuro: Awake, following commands - Vital Signs Vital signs: Vital Signs - 12hr 01/03/17 01/03/17 00:41 05:37 Temperature 97.5 F L 97.7 F Pulse Rate 55 L 54 L Respiratory 18 20 Rate Blood Pressure 160/69 165/71 O2 Sat by Pulse 98 99 Oximetry - Lab 01/03/17 06:58 01/03/17 06:58 Most recent lab results Calcium 8.1 mg/dL (8.4-10.2) L 01/03/17 06:58 Phosphorus 3.50 mg/dL (2.5-4.5) 01/03/17 06:58
--- NOTE | 2017-01-03 12:12 | Progress Note ---
Assessment and Plan Assessment and plan: 61 year old female with CAD status post CABG, diabetes, hypertension, CKD with temporary dialysis in the past, just started on new antihypertensives and had subsequently had a syncopal episode, then found to be bradycardic and hypotensive 1. Autonomic instability Currently had a syncopal episode soon after starting antihypertensives then found to be bradycardic/hypotensive Hold antihypertensives, give IV fluids Check vital signs frequent, obtain orthostatics Monitor 2. Acute renal failure Acute renal failure superimposed on chronic kidney disease Secondary likely to vasomotor nephropathy/meds side effect Hold RUSSELL inhibitor and diuretic Avoid other nephrotoxins Give IV fluids Obtain renal ultrasound and urine lites Nephrology following 3. Metabolic acidosis Due to renal failure Started on bicarbonate drip Monitor 4. Hyperkalemia Medically treated - Kayexalate, bicarbonate drip Monitor closely Nephrology following 3. Hypertension/Hypotension likely drug-induced Known hypertension on treatment with Coreg, Lisinopril, Torsemide; per report, recently started Now on all of them on hold due to hypotension/bradycardia/renal failure Monitor BP 4. Bradycardia likely but drug-induced Hold beta norma Monitor on telemetry 5. CAD status post CABG Continue aspirin and Plavix, and statin Hold beta norma due to bradycardia Hold RUSSELL inhibitor due to renal insufficiency 8. Hyperlipidemia Cholesterol 208, LDL 127 Start statin 9. Diabetes Hold glipizide A1c 5.9 Accu-Cheks and SSI as needed 10. Presumed CVA/TIA Negative workup (CT head/brain MRI/A) 11. Seizure disorder Continue Keppra 12. DVT prophylaxis History Interval history: Not feeling well, but with no specific complaints; still bradycardic, but BP wnl now Hospitalist Physical - Constitutional Vitals: Temp Pulse Resp BP Pulse Ox 97.7 F 54 L 20 165/71 99 01/03/17 05:37 01/03/17 05:37 01/03/17 05:37 01/03/17 05:37 01/03/17 05:37 General appearance: Present: no acute distress - EENT Eyes: Present: PERRL, EOM intact. Absent: scleral icterus, conjunctival injection - Neck Neck: Present: supple, normal ROM. Absent: masses or JVD - Respiratory Respiratory effort: normal Respiratory: bilateral: CTA, negative: rhonchi, wheezing - Cardiovascular Rhythm: other (bradycardic) Heart Sounds: Present: S1 & S2. Absent: systolic murmur - Extremities Extremities: no ischemia - Abdominal General gastrointestinal: soft, non-tender, non-distended, normal bowel sounds - Neurologic Neurologic: CNII-XII intact, no focal deficits Results - Labs CBC & Chem 7: 01/03/17 06:58 01/03/17 06:58 Labs: Laboratory Last Values WBC 4.1 K/mm3 (4.5-11.0) L 01/03/17 06:58 RBC 3.32 M/mm3 (3.65-5.03) L 01/03/17 06:58 Hgb 10.5 gm/dl (10.1-14.3) 01/03/17 06:58 Hct 30.7 % (30.3-42.9) 01/03/17 06:58 MCV 92 fl (79-97) 01/03/17 06:58 MCH 32 pg (28-32) 01/03/17 06:58 MCHC 34 % (30-34) 01/03/17 06:58 RDW 15.0 % (13.2-15.2) 01/03/17 06:58 Plt Count 176 K/mm3 (140-440) 01/03/17 06:58 Lymph % (Auto) 35.7 % (13.4-35.0) H 01/03/17 06:58 [place] % (Auto) 10.5 % (0.0-7.3) H 01/03/17 06:58 Eos % (Auto) 6.8 % (0.0-4.3) H 01/03/17 06:58 Baso % (Auto) 1.0 % (0.0-1.8) 01/03/17 06:58 Lymph # 1.5 K/mm3 (1.2-5.4) 01/03/17 06:58 [place] # 0.4 K/mm3 (0.0-0.8) 01/03/17 06:58 Eos # 0.3 K/mm3 (0.0-0.4) 01/03/17 06:58 Baso # 0.0 K/mm3 (0.0-0.1) 01/03/17 06:58 Seg Neutrophils % 46.0 % (40.0-70.0) 01/03/17 06:58 Seg Neutrophils # 1.9 K/mm3 (1.8-7.7) 01/03/17 06:58 Sodium 141 mmol/L (137-145) 01/03/17 06:58 Potassium 4.5 mmol/L (3.6-5.0) 01/03/17 06:58 Chloride 108.1 mmol/L (98-107) H 01/03/17 06:58 Carbon Dioxide 20 mmol/L (22-30) L 01/03/17 06:58 Anion Gap 17 mmol/L 01/03/17 06:58 BUN 61 mg/dL (7-17) H 01/03/17 06:58 Creatinine 2.8 mg/dL (0.7-1.2) H 01/03/17 06:58 Estimated GFR 21 ml/min 01/03/17 06:58 BUN/Creatinine Ratio 22 % 01/03/17 06:58 Glucose 107 mg/dL (65-100) H 01/03/17 06:58 POC Glucose 98 (70-105) 01/03/17 07:46 Hemoglobin A1c 5.9 % (4-6) 01/03/17 06:58 Calcium 8.1 mg/dL (8.4-10.2) L 01/03/17 06:58 Phosphorus 3.50 mg/dL (2.5-4.5) 01/03/17 06:58 Troponin T < 0.010 ng/mL (0.00-0.029) 01/01/17 22:31 Triglycerides 80 mg/dL (2-149) 01/03/17 06:58 Cholesterol 208 mg/dL (50-199) H 01/03/17 06:58 LDL Cholesterol Direct 127 mg/dL (50-130) 01/03/17 06:58 HDL Cholesterol 65 mg/dL (40-59) H 01/03/17 06:58 Cholesterol/HDL Ratio 3.20 % 01/03/17 06:58 - Imaging and Cardiology CT Scan - head: report reviewed (no acute abnormality) MRI - head: report reviewed (no acute abnormality)
--- NOTE | 2017-01-03 13:14 | XRay Report ---
PORTABLE CHEST INDICATION: Assess volume status. COMPARISON: 09/18/2016 FINDINGS: Portable, frontal chest radiograph demonstrates interval right sided double lumen catheter removal. Stable cardiomediastinal silhouette, sternotomy wires and osseous structures. Clear lungs. EKG leads. CONCLUSION: No acute chest process with interval right-sided central catheter removal, as described. Thank you for the opportunity to participate in this patient's care.
--- NOTE | 2017-01-03 15:25 | Ultrasound Report ---
ULTRASOUND RENAL INDICATION: Acute renal failure, CKD. COMPARISON: 09/04/2015. FINDINGS: Renal sonography suggests top normal/borderline increased renal cortical echogenicity. Grossly preserved contours. No hydronephrosis. RIGHT KIDNEY measures 9.4 x 4.3 x 5 cm with cortical thickness of 1.2 cm. LEFT KIDNEY estimated at 10.6 x 4.9 x 4.2 cm with cortical thickness of 1 cm. URINARY BLADDER appears within normal limits. CONCLUSION: No acute renal abnormality with slight underlying medical renal disease again not excluded sonographically, as described. Please correlate. Thank you for the opportunity to participate in this patient's care.
[2017-01-03 19:38] LABS: Bacteria,Urine 1+ /HPF (Negative); Bilirubin,Urine NEG (Negative); Blood,Urine NEG (Negative); Ketones,Urine NEG (Negative); Leukocyte Esterase,Urine NEG (Negative); Nitrite,Urine NEG (Negative); Urobilinogen,Urine < 2.0 mg/dL (<2.0); WBC,Urine < 1.0 /HPF (0.0-6.0)
[2017-01-03] MEDS: NEURONTIN PO SCH (22:47)
[2017-01-03] MEDS: ZOCOR PO SCH (22:47)
[2017-01-03] MEDS: NACL 0.45% 1000 ML 1,000 ML with SODIUM BICARBONATE 75 MEQ IV SCH (23:00)
[2017-01-04] MEDS: HEPARIN SUB-Q SCH ×3 (05:44→21:15)
[2017-01-04 05:50] LABS: Basophils % (Auto) 0.8 % (0.0-1.8); Hematocrit 29.9 % (30.3-42.9); Hemoglobin 10.2 gm/dl (10.1-14.3); Mean Corpuscular HGB Conc 34 % (30-34); Mean Corpuscular Hemoglobin 32 pg (28-32); Mean Corpuscular Volume 92 fl (79-97); Platelet Count 178 K/mm3 (140-440); Red Blood Count 3.25 M/mm3 (3.65-5.03); Red Cell Distribution Width 14.7 % (13.2-15.2); White Blood Count 3.9 K/mm3 (4.5-11.0)
[2017-01-04 06:09] LABS: Calcium 7.9 mg/dL (8.4-10.2); Chloride 108.1 mmol/L (98-107); Phosphorous 2.6 mg/dL (2.5-4.5); Potassium 4.4 mmol/L (3.6-5.0)
--- NOTE | 2017-01-04 07:58 | Progress Note ---
Assessment and Plan - Patient Problems (1) [id number] renal failure Current Visit: Yes Status: Acute Qualifiers: Acute renal failure type: A Chronic kidney disease stage: C Plan to address problem: Renal function reviewed. Serum creatinine trend down to 2.5 today from 2.8 yesterday On 1/2NSNS with 75 meq of Sodium Bicarbonate@ 75 ml/hr Renal ultrasound reviewed- No Hydronephrosis. Medical renal disease. Renally dose medications Avoid Nephrotoxic agents Monitor I/O's Obtain daily weights Continue to monitor renal function (2) Diabetes mellitus Current Visit: No Status: Acute Qualifiers: Diabetes mellitus type: D Diabetes mellitus complication status: D Diabetes mellitus complication detail: D Diabetic retinopathy severity: D Proliferative retinopathy type: P Diabetes mellitus macular edema: D Diabetes mellitus fci insulin use: D Laterality: L Chronic kidney disease stage: C Plan to address problem: On insulin and oral medications (3) Hypertensive chronic kidney disease Current Visit: No Status: Acute Plan to address problem: Blood pressure medications on hold due to patient presenting with hypotension on admission (4) Metabolic acidemia Current Visit: No Status: Acute Plan to address problem: On Sodium Bicarbonate oral and IV. Monitor Co2 levels. Subjective Date of service: 01/04/17 Interval history: Patient seen lying in bed. Awake and alert. Objective - Vital Signs Vital signs: Vital Signs - 12hr 01/03/17 01/03/17 01/04/17 20:00 22:00 00:00 Temperature 98.3 F 98.0 F Pulse Rate 55 L 60 65 Respiratory 18 20 18 Rate Blood Pressure 153/56 147/69 [Left] O2 Sat by Pulse 100 99 Oximetry 01/04/17 04:00 Temperature 98.4 F Pulse Rate 66 Respiratory 18 Rate Blood Pressure 130/61 [Left] O2 Sat by Pulse 97 Oximetry - General Appearance General appearance: well-developed, appears stated age EENT: ATNC, PERRL, hearing intact, vision intact Neck: no JVD, supple Respiratory: Present: Clear to Ascultation Cardiology: regular, S1S2 Gastrointestinal: normoactive bowel sounds Integumentary: warm and dry Neurologic: alert and oriented x3 Musculoskeletal: other (No edema) Psychiatric: mood/affect appropriate - Lab 01/04/17 05:00 01/04/17 05:00 Most recent lab results Calcium 7.9 mg/dL (8.4-10.2) L 01/04/17 05:00 Phosphorus 2.60 mg/dL (2.5-4.5) D 01/04/17 05:00 Magnesium 2.00 mg/dL (1.7-2.3) 01/03/17 06:00 Urine Creatinine 69.9 mg/dL (0.1-20.0) H 01/03/17 11:16 Urine Sodium 107 mEq/L 01/03/17 11:16
[2017-01-04] MEDS: PEPCID PO SCH ×2 (10:35→21:15)
[2017-01-04] MEDS: COLACE PO SCH ×2 (10:35→21:15)
[2017-01-04] MEDS: SODIUM BICARBONATE PO SCH ×3 (10:35→21:15)
[2017-01-04] MEDS: ASPIRIN PO SCH (10:35)
[2017-01-04] MEDS: GLUCOTROL PO SCH (10:35)
[2017-01-04] MEDS: KEPPRA PO SCH ×2 (10:35→21:15)
[2017-01-04] MEDS: PLAVIX PO SCH (10:35)
[2017-01-04] MEDS: NOVOLOG SUB-Q SCH ×4 (10:36→21:18)
--- NOTE | 2017-01-04 13:49 | Progress Note ---
Assessment and Plan Assessment and plan: 61 year old female with CAD status post CABG, diabetes, hypertension, CKD with temporary dialysis in the past, just started on new antihypertensives and had subsequently had a syncopal episode, then found to be bradycardic and hypotensive 1. Autonomic instability Currently had a syncopal episode soon after starting antihypertensives then found to be bradycardic/hypotensive Holding antihypertensives, received IV fluids Obtain orthostatics BP wnl and HR in [id number] today Continue to monitor 2. Acute renal failure Acute renal failure superimposed on chronic kidney disease Secondary likely to vasomotor nephropathy/meds side effect Hold RUSSELL inhibitor and diuretic Avoid other nephrotoxins Receiving IV fluids Creatinine slightly trended down, 2.5 today Renal ultrasound showing medical renal disease with no acute abnormality;urine lites also obtained Nephrology following 3. Metabolic acidosis Due to renal failure Started on bicarbonate drip Monitor 4. Hyperkalemia Medically treated - Kayexalate, bicarbonate drip Resolved Continue to monitor 3. Hypertension/Hypotension likely drug-induced Known hypertension on treatment with Coreg, Lisinopril, Torsemide; per report, recently started Now on all of them on hold due to hypotension/bradycardia/renal failure Monitor BP - in 130s today 4. Bradycardia likely but drug-induced Hold beta norma Monitor on telemetry 5. CAD status post CABG Continue aspirin/Plavix and statin Hold beta norma due to bradycardia Hold RUSSELL inhibitor due to renal insufficiency 8. Hyperlipidemia Cholesterol 208, LDL 127 Started on statin 9. Diabetes Hold glipizide A1c 5.9 Accu-Cheks and SSI as needed 10. Presumed CVA/TIA Negative workup (CT head/brain MRI/A) 11. Seizure disorder Continue [place] 12. DVT prophylaxis History Interval history: no events overnight, feeling better Hospitalist Physical - Constitutional Vitals: Temp Pulse Resp BP Pulse Ox 98.4 F 53 L 18 130/61 97 01/04/17 04:00 01/04/17 10:00 01/04/17 10:00 01/04/17 04:00 01/04/17 04:00 General appearance: Present: no acute distress - EENT Eyes: Present: PERRL, EOM intact - Neck Neck: Present: supple, normal ROM. Absent: masses or JVD - Respiratory Respiratory effort: normal Respiratory: bilateral: CTA, negative: rhonchi, wheezing - Cardiovascular Rhythm: regular Heart Sounds: Present: S1 & S2. Absent: systolic murmur - Extremities Extremities: no ischemia - Abdominal General gastrointestinal: soft, non-tender, non-distended, normal bowel sounds - Psychiatric Psychiatric: cooperative - Neurologic Neurologic: CNII-XII intact, no focal deficits Results - Labs CBC & Chem 7: 01/04/17 05:00 01/04/17 05:00 Labs: Laboratory Last Values WBC 3.9 K/mm3 (4.5-11.0) L 01/04/17 05:00 RBC 3.25 M/mm3 (3.65-5.03) L 01/04/17 05:00 Hgb 10.2 gm/dl (10.1-14.3) 01/04/17 05:00 Hct 29.9 % (30.3-42.9) L 01/04/17 05:00 MCV 92 fl (79-97) 01/04/17 05:00 MCH 32 pg (28-32) 01/04/17 05:00 MCHC 34 % (30-34) 01/04/17 05:00 RDW 14.7 % (13.2-15.2) 01/04/17 05:00 Plt Count 178 K/mm3 (140-440) 01/04/17 05:00 Lymph % (Auto) 31.7 % (13.4-35.0) 01/04/17 05:00 [place] % (Auto) 11.0 % (0.0-7.3) H 01/04/17 05:00 Eos % (Auto) 6.0 % (0.0-4.3) H 01/04/17 05:00 Baso % (Auto) 0.8 % (0.0-1.8) 01/04/17 05:00 Lymph # 1.2 K/mm3 (1.2-5.4) 01/04/17 05:00 [place] # 0.4 K/mm3 (0.0-0.8) 01/04/17 05:00 Eos # 0.2 K/mm3 (0.0-0.4) 01/04/17 05:00 Baso # 0.0 K/mm3 (0.0-0.1) 01/04/17 05:00 Seg Neutrophils % 50.5 % (40.0-70.0) 01/04/17 05:00 Seg Neutrophils # 2.0 K/mm3 (1.8-7.7) 01/04/17 05:00 Sodium 144 mmol/L (137-145) 01/04/17 05:00 Potassium 4.4 mmol/L (3.6-5.0) 01/04/17 05:00 Chloride 108.1 mmol/L (98-107) H 01/04/17 05:00 Carbon Dioxide 22 mmol/L (22-30) 01/04/17 05:00 Anion Gap 18 mmol/L 01/04/17 05:00 BUN 49 mg/dL (7-17) H 01/04/17 05:00 Creatinine 2.5 mg/dL (0.7-1.2) H 01/04/17 05:00 Estimated GFR 24 ml/min 01/04/17 05:00 BUN/Creatinine Ratio 20 % 01/04/17 05:00 Glucose 136 mg/dL (65-100) H 01/04/17 05:00 POC Glucose 150 (70-105) H 01/04/17 09:34 Hemoglobin A1c 5.9 % (4-6) 01/03/17 06:58 Calcium 7.9 mg/dL (8.4-10.2) L 01/04/17 05:00 Phosphorus 2.60 mg/dL (2.5-4.5) D 01/04/17 05:00 Magnesium 2.00 mg/dL (1.7-2.3) 01/03/17 06:00 Total Creatine Kinase 56 units/L (30-135) 01/03/17 06:00 Troponin T < 0.010 ng/mL (0.00-0.029) 01/01/17 22:31 NT-Pro-B Natriuret Pep 987.1 pg/mL (0-900) H 01/03/17 06:00 Triglycerides 80 mg/dL (2-149) 01/03/17 06:58 Cholesterol 208 mg/dL (50-199) H 01/03/17 06:58 LDL Cholesterol Direct 127 mg/dL (50-130) 01/03/17 06:58 HDL Cholesterol 65 mg/dL (40-59) H 01/03/17 06:58 Cholesterol/HDL Ratio 3.20 % 01/03/17 06:58 Urine Color Straw (Yellow) 01/03/17 11:16 Urine Turbidity Clear (Clear) 01/03/17 11:16 Urine pH 7.0 (5.0-7.0) 01/03/17 11:16 Ur Specific [place] 1.014 (1.003-1.030) 01/03/17 11:16 Urine Protein 30 mg/dl mg/dL (Negative) 01/03/17 11:16 Urine Glucose (UA) 50 mg/dL (Negative) 01/03/17 11:16 Urine Ketones Neg mg/dL (Negative) 01/03/17 11:16 Urine Blood Neg (Negative) 01/03/17 11:16 Urine Nitrite Neg (Negative) 01/03/17 11:16 Urine Bilirubin Neg (Negative) 01/03/17 11:16 Urine Urobilinogen < 2.0 mg/dL (<2.0) 01/03/17 11:16 Ur Leukocyte Esterase Neg (Negative) 01/03/17 11:16 Urine WBC (Auto) < 1.0 /HPF (0.0-6.0) 01/03/17 11:16 Urine RBC (Auto) 1.0 /HPF (0.0-6.0) 01/03/17 11:16 U Epithel Cells (Auto) < 1.0 /HPF (0-13.0) 01/03/17 11:16 Urine Bacteria (Auto) 1+ /HPF (Negative) 01/03/17 11:16 Urine Eosinophils None seen (None Seen) 01/03/17 11:16 Urine Creatinine 69.9 mg/dL (0.1-20.0) H 01/03/17 11:16 Urine Sodium 107 mEq/L 01/03/17 11:16 Urine Urea Nitrogen 692 01/03/17 11:16
[2017-01-04] MEDS: NACL 0.45% 1000 ML 1,000 ML with SODIUM BICARBONATE 75 MEQ IV SCH (18:24)
[2017-01-04] MEDS: NEURONTIN PO SCH (21:15)
[2017-01-04] MEDS: ZOCOR PO SCH (21:16)
[2017-01-05] MEDS: TYLENOL PO PRN (01:08)
[2017-01-05] MEDS: HEPARIN SUB-Q SCH ×3 (05:51→23:03)
[2017-01-05 06:36] LABS: Eosinophils % (Auto) 5.1 % (0.0-4.3); Hematocrit 29.1 % (30.3-42.9); Hemoglobin 9.9 gm/dl (10.1-14.3); Mean Corpuscular HGB Conc 34 % (30-34); Mean Corpuscular Hemoglobin 31 pg (28-32); Mean Corpuscular Volume 92 fl (79-97); Platelet Count 161 K/mm3 (140-440); Red Blood Count 3.15 M/mm3 (3.65-5.03); Red Cell Distribution Width 15.1 % (13.2-15.2); White Blood Count 4.4 K/mm3 (4.5-11.0)
[2017-01-05 06:53] LABS: Chloride 106.3 mmol/L (98-107); Phosphorous 2.5 mg/dL (2.5-4.5); Potassium 4.2 mmol/L (3.6-5.0)
[2017-01-05] MEDS: NOVOLOG SUB-Q SCH ×4 (08:00→23:11)
--- NOTE | 2017-01-05 09:53 | Progress Note ---
Assessment and Plan - Patient Problems (1) Napli-fl-lnicfoz renal failure Current Visit: Yes Status: Acute Qualifiers: Acute renal failure type: A Chronic kidney disease stage: C Plan to address problem: Renal function reviewed. Serum creatinine trend down to 2.3 today from 2.5 yesterday On 03/18 NS with 75 meq of Sodium Bicarbonate@ 75 ml/hr Renal ultrasound reviewed- No Hydronephrosis. Medical renal disease. Renally dose medications Avoid Nephrotoxic agents Monitor I/O's Obtain daily weights Continue to monitor renal function (2) Diabetes mellitus Current Visit: No Status: Acute Qualifiers: Diabetes mellitus type: D Diabetes mellitus complication status: D Diabetes mellitus complication detail: D Diabetic retinopathy severity: D Proliferative retinopathy type: P Diabetes mellitus macular edema: D Diabetes mellitus alf insulin use: D Laterality: L Chronic kidney disease stage: C Plan to address problem: On insulin and oral medications (3) Hypertensive chronic kidney disease Current Visit: No Status: Acute Plan to address problem: Blood pressure medications on hold due to patient presenting with hypotension on admission. Monitor blood pressures. (4) Metabolic acidemia Current Visit: No Status: Acute Plan to address problem: On Sodium Bicarbonate oral and IV. Monitor Co2 levels. Same at 22 today. Same regimen for now Subjective Date of service: 01/05/17 Principal diagnosis: ARF Interval history: Patient seen lying in bed. Sleepy but easily aroused. Objective - Vital Signs Vital signs: Vital Signs - 12hr 01/04/17 01/05/17 01/05/17 22:00 01:03 04:12 Temperature 98.0 F 98.2 F Pulse Rate 64 65 55 L Respiratory 18 18 Rate Blood Pressure 147/72 144/61 [Left] O2 Sat by Pulse 100 95 Oximetry - General Appearance General appearance: well-developed, appears stated age EENT: ATNC, PERRL, hearing intact, vision intact Neck: no JVD, supple Respiratory: Present: Clear to Ascultation Cardiology: regular, S1S2 Gastrointestinal: normoactive bowel sounds Integumentary: warm and dry Neurologic: other (Sleepy) Musculoskeletal: no deformities, no erythema, no cyanosis, no clubbing - Lab 01/05/17 06:11 01/05/17 06:11 Most recent lab results Calcium 8.0 mg/dL (8.4-10.2) L 01/05/17 06:11 Phosphorus 2.50 mg/dL (2.5-4.5) 01/05/17 06:11 Magnesium 2.00 mg/dL (1.7-2.3) 01/03/17 06:00 Urine Creatinine 69.9 mg/dL (0.1-20.0) H 01/03/17 11:16 Urine Sodium 107 mEq/L 01/03/17 11:16
[2017-01-05] MEDS: GLUCOTROL PO SCH (10:03)
[2017-01-05] MEDS: KEPPRA PO SCH ×2 (10:04→23:04)
[2017-01-05] MEDS: SODIUM BICARBONATE PO SCH ×3 (10:04→23:11)
[2017-01-05] MEDS: ASPIRIN PO SCH (10:04)
[2017-01-05] MEDS: COLACE PO SCH ×2 (10:04→23:04)
[2017-01-05] MEDS: PEPCID PO SCH ×2 (10:05→23:04)
[2017-01-05] MEDS: PLAVIX PO SCH (10:05)
--- NOTE | 2017-01-05 17:25 | Progress Note ---
Assessment and Plan Assessment and plan: 61 year old female with CAD status post CABG, diabetes, hypertension, CKD with temporary dialysis in the past, just started on new antihypertensives and had subsequently had a syncopal episode, then found to be bradycardic and hypotensive 1. Autonomic instability Syncopal episode soon after starting antihypertensives then found to be bradycardic/hypotensive Holding antihypertensives, received IV fluids BP wnl and HR in [id number] today Continue to monitor 2. Acute renal failure Acute renal failure superimposed on chronic kidney disease Secondary likely to vasomotor nephropathy/meds side effect Hold RUSSELL inhibitor and diuretic Avoid other nephrotoxins Receiving IV fluids Creatinine slightly trended down, 2.3 Renal ultrasound showing medical renal disease with no acute abnormality;urine lites also obtained Nephrology following 3. Metabolic acidosis Due to renal failure Started on bicarbonate drip Monitor 4. Hyperkalemia Medically treated - Kayexalate, bicarbonate drip Resolved Continue to monitor 3. Hypertension/Hypotension likely drug-induced Known hypertension on treatment with Coreg, Lisinopril, Torsemide; per report, recently started Now on all of them on hold due to hypotension/bradycardia/renal failure Monitor BP - in 140s today 4. Bradycardia likely but drug-induced Hold beta norma Monitor on telemetry 5. CAD status post CABG Continue aspirin/Plavix and statin Hold beta norma due to bradycardia Hold RUSSELL inhibitor due to renal insufficiency 8. Hyperlipidemia Cholesterol 208, LDL 127 Started on statin 9. Diabetes Hold glipizide A1c 5.9 Accu-Cheks and SSI as needed 10. Presumed CVA/TIA Negative workup (CT head/brain MRI/A) 11. Seizure disorder Continue Keppra 12. DVT prophylaxis History Interval history: no events overnight, no specific complaints Hospitalist Physical - Constitutional Vitals: Temp Pulse Resp BP Pulse Ox 97.7 F 56 L 18 169/75 98 01/05/17 08:10 01/05/17 08:10 01/05/17 08:10 01/05/17 08:10 01/05/17 08:10 General appearance: Present: no acute distress, well-nourished - EENT Eyes: Present: PERRL, EOM intact - Neck Neck: Present: supple, normal ROM. Absent: masses or JVD - Respiratory Respiratory effort: normal Respiratory: bilateral: CTA, negative: rhonchi, wheezing - Cardiovascular Rhythm: regular Heart Sounds: Present: S1 & S2. Absent: systolic murmur - Extremities Extremities: no ischemia - Abdominal General gastrointestinal: soft, non-tender, non-distended, normal bowel sounds - Psychiatric Psychiatric: no intact judgment & insight - Neurologic Neurologic: CNII-XII intact, no focal deficits Results - Labs CBC & Chem 7: 01/05/17 06:11 01/05/17 06:11 Labs: Laboratory Last Values WBC 4.4 K/mm3 (4.5-11.0) L 01/05/17 06:11 RBC 3.15 M/mm3 (3.65-5.03) L 01/05/17 06:11 Hgb 9.9 gm/dl (10.1-14.3) L 01/05/17 06:11 Hct 29.1 % (30.3-42.9) L 01/05/17 06:11 MCV 92 fl (79-97) 01/05/17 06:11 MCH 31 pg (28-32) 01/05/17 06:11 MCHC 34 % (30-34) 01/05/17 06:11 RDW 15.1 % (13.2-15.2) 01/05/17 06:11 Plt Count 161 K/mm3 (140-440) 01/05/17 06:11 Lymph % (Auto) 37.0 % (13.4-35.0) H 01/05/17 06:11 [place] % (Auto) 12.1 % (0.0-7.3) H 01/05/17 06:11 Eos % (Auto) 5.1 % (0.0-4.3) H 01/05/17 06:11 Baso % (Auto) 1.0 % (0.0-1.8) 01/05/17 06:11 Lymph # 1.6 K/mm3 (1.2-5.4) 01/05/17 06:11 [place] # 0.5 K/mm3 (0.0-0.8) 01/05/17 06:11 Eos # 0.2 K/mm3 (0.0-0.4) 01/05/17 06:11 Baso # 0.0 K/mm3 (0.0-0.1) 01/05/17 06:11 Seg Neutrophils % 44.8 % (40.0-70.0) 01/05/17 06:11 Seg Neutrophils # 2.0 K/mm3 (1.8-7.7) 01/05/17 06:11 Sodium 142 mmol/L (137-145) 01/05/17 06:11 Potassium 4.2 mmol/L (3.6-5.0) 01/05/17 06:11 Chloride 106.3 mmol/L (98-107) 01/05/17 06:11 Carbon Dioxide 22 mmol/L (22-30) 01/05/17 06:11 Anion Gap 18 mmol/L 01/05/17 06:11 BUN 45 mg/dL (7-17) H 01/05/17 06:11 Creatinine 2.3 mg/dL (0.7-1.2) H 01/05/17 06:11 Estimated GFR 26 ml/min 01/05/17 06:11 BUN/Creatinine Ratio 20 % 01/05/17 06:11 Glucose 111 mg/dL (65-100) H 01/05/17 06:11 POC Glucose 126 (70-105) H 01/05/17 12:20 Hemoglobin A1c 5.9 % (4-6) 01/03/17 06:58 Calcium 8.0 mg/dL (8.4-10.2) L 01/05/17 06:11 Phosphorus 2.50 mg/dL (2.5-4.5) 01/05/17 06:11 Magnesium 2.00 mg/dL (1.7-2.3) 01/03/17 06:00 Total Creatine Kinase 56 units/L (30-135) 01/03/17 06:00 Troponin T < 0.010 ng/mL (0.00-0.029) 01/01/17 22:31 NT-Pro-B Natriuret Pep 987.1 pg/mL (0-900) H 01/03/17 06:00 Triglycerides 80 mg/dL (2-149) 01/03/17 06:58 Cholesterol 208 mg/dL (50-199) H 01/03/17 06:58 LDL Cholesterol Direct 127 mg/dL (50-130) 01/03/17 06:58 HDL Cholesterol 65 mg/dL (40-59) H 01/03/17 06:58 Cholesterol/HDL Ratio 3.20 % 01/03/17 06:58 Urine Color Straw (Yellow) 01/03/17 11:16 Urine Turbidity Clear (Clear) 01/03/17 11:16 Urine pH 7.0 (5.0-7.0) 01/03/17 11:16 Ur Specific [place] 1.014 (1.003-1.030) 01/03/17 11:16 Urine Protein 30 mg/dl mg/dL (Negative) 01/03/17 11:16 Urine Glucose (UA) 50 mg/dL (Negative) 01/03/17 11:16 Urine Ketones Neg mg/dL (Negative) 01/03/17 11:16 Urine Blood Neg (Negative) 01/03/17 11:16 Urine Nitrite Neg (Negative) 01/03/17 11:16 Urine Bilirubin Neg (Negative) 01/03/17 11:16 Urine Urobilinogen < 2.0 mg/dL (<2.0) 01/03/17 11:16 Ur Leukocyte Esterase Neg (Negative) 01/03/17 11:16 Urine WBC (Auto) < 1.0 /HPF (0.0-6.0) 01/03/17 11:16 Urine RBC (Auto) 1.0 /HPF (0.0-6.0) 01/03/17 11:16 U Epithel Cells (Auto) < 1.0 /HPF (0-13.0) 01/03/17 11:16 Urine Bacteria (Auto) 1+ /HPF (Negative) 01/03/17 11:16 Urine Eosinophils None seen (None Seen) 01/03/17 11:16 Urine Creatinine 69.9 mg/dL (0.1-20.0) H 01/03/17 11:16 Urine Sodium 107 mEq/L 01/03/17 11:16 Urine Urea Nitrogen 692 01/03/17 11:16
[2017-01-05] MEDS ORDERED: SODIUM BICARBONATE 75 MEQ in NACL 0.45% 1000 ML 1,000 ML IV SCH (23:00)
[2017-01-05] MEDS: NEURONTIN PO SCH (23:04)
[2017-01-05] MEDS: ZOCOR PO SCH ×2 (23:24→23:26)
[2017-01-06] MEDS: HEPARIN SUB-Q SCH ×3 (06:15→23:01)
[2017-01-06 06:24] LABS: Basophils % (Auto) 0.8 % (0.0-1.8); Eosinophils % (Auto) 6.5 % (0.0-4.3); Hematocrit 29.2 % (30.3-42.9); Hemoglobin 9.8 gm/dl (10.1-14.3); Mean Corpuscular HGB Conc 34 % (30-34); Mean Corpuscular Hemoglobin 31 pg (28-32); Mean Corpuscular Volume 93 fl (79-97); Platelet Count 170 K/mm3 (140-440); Red Blood Count 3.14 M/mm3 (3.65-5.03); Red Cell Distribution Width 14.6 % (13.2-15.2); White Blood Count 4.3 K/mm3 (4.5-11.0)
[2017-01-06 06:40] LABS: Calcium 8.4 mg/dL (8.4-10.2); Chloride 105.4 mmol/L (98-107); Phosphorous 2.9 mg/dL (2.5-4.5); Potassium 4.4 mmol/L (3.6-5.0)
[2017-01-06] MEDS: NOVOLOG SUB-Q SCH ×4 (09:03→23:04)
[2017-01-06] MEDS: PEPCID PO SCH ×2 (09:39→23:01)
[2017-01-06] MEDS: ASPIRIN PO SCH (09:39)
[2017-01-06] MEDS: SODIUM BICARBONATE PO SCH (09:39)
[2017-01-06] MEDS: PLAVIX PO SCH (09:39)
[2017-01-06] MEDS: GLUCOTROL PO SCH (09:40)
[2017-01-06] MEDS: COLACE PO SCH ×2 (09:40→23:01)
[2017-01-06] MEDS: KEPPRA PO SCH ×2 (09:40→23:01)
--- NOTE | 2017-01-06 13:59 | Progress Note ---
Assessment and Plan - Patient Problems (1) Uejxj-ai-edvpyuf renal failure Current Visit: Yes Status: Acute Qualifiers: Acute renal failure type: A Chronic kidney disease stage: C Plan to address problem: Renal function reviewed. Gradually improving. Serum creatinine trend down to 2.2 today from 2.3 yesterday Discontinued Sodium Bicarbonate drip Renal ultrasound reviewed- No Hydronephrosis. Medical renal disease. Renally dose medications Avoid Nephrotoxic agents Monitor I/O's Obtain daily weights Continue to monitor renal function (2) Diabetes mellitus Current Visit: No Status: Acute Qualifiers: Diabetes mellitus type: D Diabetes mellitus complication status: D Diabetes mellitus complication detail: D Diabetic retinopathy severity: D Proliferative retinopathy type: P Diabetes mellitus macular edema: D Diabetes mellitus assisted insulin use: D Laterality: L Chronic kidney disease stage: C Plan to address problem: On insulin and oral medications (3) Hypertensive chronic kidney disease Current Visit: No Status: Acute Plan to address problem: Blood pressure medications on hold due to patient presenting with hypotension on admission. Monitor blood pressures. (4) Metabolic acidemia Current Visit: No Status: Acute Plan to address problem: Resolved. Discontinued bicarb drip and oral sodium bicarbonate tablets Subjective Date of service: 01/06/17 Principal diagnosis: ARF Interval history: Patient seen lying in bed. States feeling fine. Objective - Vital Signs Vital signs: Vital Signs - 12hr 01/06/17 01/06/17 04:30 10:00 Temperature 98.3 F 97.8 F Pulse Rate 56 L 59 L Respiratory 18 20 Rate Blood Pressure 153/67 153/65 [Left] O2 Sat by Pulse 98 98 Oximetry - General Appearance General appearance: well-developed, appears stated age EENT: ATNC, PERRL, hearing intact, vision intact Neck: no JVD, supple Respiratory: Present: Clear to Ascultation Cardiology: regular, S1S2 Gastrointestinal: normoactive bowel sounds Integumentary: warm and dry Neurologic: alert and oriented x3 Musculoskeletal: no deformities, no erythema, no cyanosis, no clubbing Psychiatric: mood/affect appropriate, cooperative - Lab 01/06/17 05:09 01/06/17 05:09 Most recent lab results Calcium 8.4 mg/dL (8.4-10.2) 01/06/17 05:09 Phosphorus 2.90 mg/dL (2.5-4.5) 01/06/17 05:09 Magnesium 2.00 mg/dL (1.7-2.3) 01/03/17 06:00 Urine Creatinine 69.9 mg/dL (0.1-20.0) H 01/03/17 11:16 Urine Sodium 107 mEq/L 01/03/17 11:16
[2017-01-06] MEDS ORDERED: HYDROCORTISONE CR TP PRN (16:00)
--- NOTE | 2017-01-06 18:12 | Progress Note ---
Assessment and Plan Assessment and plan: 61 year old female with CAD status post CABG, diabetes, hypertension, CKD with temporary dialysis in the past, just started on new antihypertensives and had subsequently had a syncopal episode, then found to be bradycardic and hypotensive 1. Autonomic instability Syncopal episode soon after starting antihypertensives then found to be bradycardic/hypotensive Holding antihypertensives, received IV fluids BP wnl and HR in upper 50-60s today Continue to monitor 2. Acute renal failure Acute renal failure superimposed on chronic kidney disease Secondary likely to vasomotor nephropathy/meds side effect Hold RUSSELL inhibitor and diuretic Avoid other nephrotoxins Receiving IV fluids Creatinine slightly trended down, 2.3 Renal ultrasound showing medical renal disease with no acute abnormality;urine lites also obtained Nephrology following 3. Metabolic acidosis Due to renal failure Started on bicarbonate drip Monitor 4. Hyperkalemia Medically treated - Kayexalate, bicarbonate drip Resolved Continue to monitor 3. Hypertension/Hypotension likely drug-induced Known hypertension on treatment with Coreg, Lisinopril, Torsemide; per report, recently started Now on all of them on hold due to hypotension/bradycardia/renal failure Monitor BP - in 140-150s today 4. Bradycardia likely drug-induced Hold beta norma Monitor on telemetry 5. CAD status post CABG Continue aspirin/Plavix and statin Hold beta norma due to bradycardia Hold RUSSELL inhibitor due to renal insufficiency 8. Hyperlipidemia Cholesterol 208, LDL 127 Started on statin 9. Diabetes Hold glipizide A1c 5.9 Accu-Cheks and SSI as needed 10. Presumed CVA/TIA Negative workup (CT head/brain MRI/A) 11. Seizure disorder Continue Rigo 12. Dementia Supportive care 13. DVT prophylaxis History Interval history: depressed, not talking much, but with no complaints on further questioning Hospitalist Physical - Constitutional Vitals: Temp Pulse Resp BP Pulse Ox 97.9 F 67 20 140/86 98 01/06/17 13:30 01/06/17 13:30 01/06/17 13:30 01/06/17 13:30 01/06/17 10:00 General appearance: Present: no acute distress, well-nourished - EENT Eyes: Present: PERRL, EOM intact - Neck Neck: Present: supple, normal ROM. Absent: masses or JVD - Respiratory Respiratory effort: normal Respiratory: bilateral: CTA, negative: rhonchi, wheezing - Cardiovascular Rhythm: regular Heart Sounds: Present: S1 & S2. Absent: systolic murmur - Extremities Extremities: no ischemia - Abdominal General gastrointestinal: soft, non-tender, non-distended, normal bowel sounds - Psychiatric Psychiatric: depressed - Neurologic Neurologic: no focal deficits Results - Labs CBC & Chem 7: 01/07/17 05:58 01/07/17 05:58 Labs: Laboratory Last Values WBC 4.3 K/mm3 (4.5-11.0) L 01/06/17 05:09 RBC 3.14 M/mm3 (3.65-5.03) L 01/06/17 05:09 Hgb 9.8 gm/dl (10.1-14.3) L 01/06/17 05:09 Hct 29.2 % (30.3-42.9) L 01/06/17 05:09 MCV 93 fl (79-97) 01/06/17 05:09 MCH 31 pg (28-32) 01/06/17 05:09 MCHC 34 % (30-34) 01/06/17 05:09 RDW 14.6 % (13.2-15.2) 01/06/17 05:09 Plt Count 170 K/mm3 (140-440) 01/06/17 05:09 Lymph % (Auto) 32.3 % (13.4-35.0) 01/06/17 05:09 [place] % (Auto) 10.3 % (0.0-7.3) H 01/06/17 05:09 Eos % (Auto) 6.5 % (0.0-4.3) H 01/06/17 05:09 Baso % (Auto) 0.8 % (0.0-1.8) 01/06/17 05:09 Lymph # 1.4 K/mm3 (1.2-5.4) 01/06/17 05:09 [place] # 0.4 K/mm3 (0.0-0.8) 01/06/17 05:09 Eos # 0.3 K/mm3 (0.0-0.4) 01/06/17 05:09 Baso # 0.0 K/mm3 (0.0-0.1) 01/06/17 05:09 Seg Neutrophils % 50.1 % (40.0-70.0) 01/06/17 05:09 Seg Neutrophils # 2.1 K/mm3 (1.8-7.7) 01/06/17 05:09 Sodium 142 mmol/L (137-145) 01/06/17 05:09 Potassium 4.4 mmol/L (3.6-5.0) 01/06/17 05:09 Chloride 105.4 mmol/L (98-107) 01/06/17 05:09 Carbon Dioxide 26 mmol/L (22-30) 01/06/17 05:09 Anion Gap 15 mmol/L 01/06/17 05:09 BUN 40 mg/dL (7-17) H 01/06/17 05:09 Creatinine 2.2 mg/dL (0.7-1.2) H 01/06/17 05:09 Estimated GFR 27 ml/min 01/06/17 05:09 BUN/Creatinine Ratio 18 % 01/06/17 05:09 Glucose 113 mg/dL (65-100) H 01/06/17 05:09 POC Glucose 137 (70-105) H 01/06/17 17:26 Hemoglobin A1c 5.9 % (4-6) 01/03/17 06:58 Calcium 8.4 mg/dL (8.4-10.2) 01/06/17 05:09 Phosphorus 2.90 mg/dL (2.5-4.5) 01/06/17 05:09 Magnesium 2.00 mg/dL (1.7-2.3) 01/03/17 06:00 Total Creatine Kinase 56 units/L (30-135) 01/03/17 06:00 Troponin T < 0.010 ng/mL (0.00-0.029) 01/01/17 22:31 NT-Pro-B Natriuret Pep 987.1 pg/mL (0-900) H 01/03/17 06:00 Triglycerides 80 mg/dL (2-149) 01/03/17 06:58 Cholesterol 208 mg/dL (50-199) H 01/03/17 06:58 LDL Cholesterol Direct 127 mg/dL (50-130) 01/03/17 06:58 HDL Cholesterol 65 mg/dL (40-59) H 01/03/17 06:58 Cholesterol/HDL Ratio 3.20 % 01/03/17 06:58 Urine Color Straw (Yellow) 01/03/17 11:16 Urine Turbidity Clear (Clear) 01/03/17 11:16 Urine pH 7.0 (5.0-7.0) 01/03/17 11:16 Ur Specific [place] 1.014 (1.003-1.030) 01/03/17 11:16 Urine Protein 30 mg/dl mg/dL (Negative) 01/03/17 11:16 Urine Glucose (UA) 50 mg/dL (Negative) 01/03/17 11:16 Urine Ketones Neg mg/dL (Negative) 01/03/17 11:16 Urine Blood Neg (Negative) 01/03/17 11:16 Urine Nitrite Neg (Negative) 01/03/17 11:16 Urine Bilirubin Neg (Negative) 01/03/17 11:16 Urine Urobilinogen < 2.0 mg/dL (<2.0) 01/03/17 11:16 Ur Leukocyte Esterase Neg (Negative) 01/03/17 11:16 Urine WBC (Auto) < 1.0 /HPF (0.0-6.0) 01/03/17 11:16 Urine RBC (Auto) 1.0 /HPF (0.0-6.0) 01/03/17 11:16 U Epithel Cells (Auto) < 1.0 /HPF (0-13.0) 01/03/17 11:16 Urine Bacteria (Auto) 1+ /HPF (Negative) 01/03/17 11:16 Urine Eosinophils None seen (None Seen) 01/03/17 11:16 Urine Creatinine 69.9 mg/dL (0.1-20.0) H 01/03/17 11:16 Urine Sodium 107 mEq/L 01/03/17 11:16 Urine Urea Nitrogen 692 01/03/17 11:16
[2017-01-06] MEDS: NEURONTIN PO SCH (23:00)
[2017-01-06] MEDS: ZOCOR PO SCH (23:07)
[2017-01-07] MEDS: TYLENOL PO PRN ×2 (00:29→04:48)
[2017-01-07] MEDS: HEPARIN SUB-Q SCH ×3 (05:24→21:46)
[2017-01-07 06:38] LABS: Basophils % (Auto) 0.6 % (0.0-1.8); Eosinophils % (Auto) 5.9 % (0.0-4.3); Hematocrit 28.4 % (30.3-42.9); Hemoglobin 9.9 gm/dl (10.1-14.3); Mean Corpuscular HGB Conc 35 % (30-34); Mean Corpuscular Hemoglobin 33 pg (28-32); Mean Corpuscular Volume 93 fl (79-97); Platelet Count 168 K/mm3 (140-440); Red Blood Count 3.04 M/mm3 (3.65-5.03); Red Cell Distribution Width 14.9 % (13.2-15.2); White Blood Count 4.3 K/mm3 (4.5-11.0)
[2017-01-07 06:58] LABS: Calcium 8.5 mg/dL (8.4-10.2); Chloride 104.5 mmol/L (98-107); Phosphorous 3.4 mg/dL (2.5-4.5); Potassium 5.1 mmol/L (3.6-5.0)
[2017-01-07] MEDS: NOVOLOG SUB-Q SCH ×4 (08:25→21:55)
[2017-01-07] MEDS: GLUCOTROL PO SCH (09:11)
--- NOTE | 2017-01-07 10:10 | Progress Note ---
Assessment and Plan (1) Nyfae-sx-ctxiclt renal failure Current Visit: Yes Status: Acute Qualifiers: Acute renal failure type: A Chronic kidney disease stage: C Plan to address problem: increased cr since yesterday after holding IVF, will cont to monitor Renal ultrasound reviewed- No Hydronephrosis. Medical renal disease. Renally dose medications Avoid Nephrotoxic agents Monitor I/O's Obtain daily weights Continue to monitor renal function (2) Diabetes mellitus Current Visit: No Status: Acute Qualifiers: Diabetes mellitus type: D Diabetes mellitus complication status: D Diabetes mellitus complication detail: D Diabetic retinopathy severity: D Proliferative retinopathy type: P Diabetes mellitus macular edema: D Diabetes mellitus manager terminal insulin use: D Laterality: L Chronic kidney disease stage: C Plan to address problem: On insulin and oral medications (3) Hypertensive chronic kidney disease Current Visit: No Status: Acute Plan to address problem: will start Amlodipine 5 mg qday (4) Metabolic acidemia Current Visit: No Status: Acute Plan to address problem: Resolved. Discontinued bicarb drip and oral sodium bicarbonate tablets Subjective Date of service: 01/07/17 Principal diagnosis: ARF Interval history: more awake today, comfortable Objective - Vital Signs Vital signs: Vital Signs - 12hr 01/07/17 01/07/17 01/07/17 00:29 00:37 04:35 Temperature 99.2 F 98.0 F Pulse Rate 60 67 Respiratory 18 20 16 Rate Blood Pressure Blood Pressure 150/57 158/83 [Left] O2 Sat by Pulse 99 100 Oximetry 01/07/17 01/07/17 07:55 08:39 Temperature 98.6 F Pulse Rate 55 L 57 L Respiratory 18 Rate Blood Pressure 176/71 Blood Pressure 176/71 [Left] O2 Sat by Pulse 97 Oximetry - General Appearance General appearance: well-developed, well-nourished EENT: ATNC, PERRL, mucous membranes moist Neck: no JVD, no carotid bruit Respiratory: Present: Clear to Ascultation. Absent: Rales, Ronchi Cardiology: regular, S1S2 Gastrointestinal: normoactive bowel sounds, no tenderness, no distended Integumentary: no rash, warm and dry Neurologic: no focal deficit, no asterixis Musculoskeletal: other (no edema in BLE) Psychiatric: mood/affect appropriate, cooperative - Lab 01/07/17 05:58 01/07/17 05:58 Most recent lab results Calcium 8.5 mg/dL (8.4-10.2) 01/07/17 05:58 Phosphorus 3.40 mg/dL (2.5-4.5) 01/07/17 05:58 Magnesium 2.00 mg/dL (1.7-2.3) 01/03/17 06:00 Urine Creatinine 69.9 mg/dL (0.1-20.0) H 01/03/17 11:16 Urine Sodium 107 mEq/L 01/03/17 11:16
[2017-01-07] MEDS ORDERED: NORVASC PO SCH (11:00)
[2017-01-07] MEDS: PEPCID PO SCH ×2 (11:32→21:47)
[2017-01-07] MEDS: COLACE PO SCH ×2 (11:32→21:47)
[2017-01-07] MEDS: KEPPRA PO SCH ×2 (11:32→21:48)
[2017-01-07] MEDS: ASPIRIN PO SCH (11:32)
[2017-01-07] MEDS: PLAVIX PO SCH (11:33)
[2017-01-07] MEDS ORDERED: KIONEX PO ONE ×2 (12:30→16:00)
[2017-01-07] MEDS: NACL 0.9% 1000 ML 1,000 ML IV SCH (15:24)
--- NOTE | 2017-01-07 15:31 | Progress Note ---
Assessment and Plan Assessment and plan: 61 year old female with CAD status post CABG, diabetes, hypertension, CKD with temporary dialysis in the past, just started on new antihypertensives and had subsequently had a syncopal episode, then found to be bradycardic and hypotensive 1. Autonomic instability Syncopal episode soon after starting antihypertensives then found to be bradycardic/hypotensive Antihypertensives held, received IV fluids BP wnl and HR in [id number] Continue to monitor 2. Acute renal failure Acute renal failure superimposed on chronic kidney disease Secondary likely to vasomotor nephropathy/meds side effect Hold RUSSELL inhibitor and diuretic Avoid other nephrotoxins Receiving IV fluids Creatinine slightly trended down, 2.3-2.4 likely new baseline Renal ultrasound showing medical renal disease with no acute abnormality;urine lites also obtained Nephrology following 3. Metabolic acidosis Due to renal failure Started on bicarbonate Monitor 4. Hyperkalemia Medically treated - Kayexalate, bicarbonate Resolved Now K+ 5.1, give Kayexalate and recheck in a.m. Continue to monitor 3. Hypertension/Hypotension likely drug-induced Known hypertension on treatment with Coreg, Lisinopril, Torsemide; per report, recently started On admission all of them held due to hypotension/bradycardia/renal failure BP normalized and now constantly elevated Ruby Developer started amlodipine today, but will discontinue it as she is still bradycardic; start hydralazine Monitor BP/HR 4. Bradycardia likely but drug-induced Hold beta norma Avoid AVB agents Monitor on telemetry 5. CAD status post CABG Continue aspirin/Plavix and statin Hold beta norma due to bradycardia Hold RUSSELL inhibitor due to renal insufficiency 8. Hyperlipidemia Cholesterol 208, LDL 127 Started on statin 9. Diabetes Hold glipizide A1c 5.9 Accu-Cheks and SSI as needed 10. Presumed CVA/TIA Negative workup (CT head/brain MRI/A) 11. Seizure disorder Continue Keppra 12. Dementia Scheduled for outpatient evaluation Supportive 13. DVT prophylaxis 14. Dispo Likely discharge in a.m. if hyperkalemia corrected and renal function stable; discussed with sister who is the power of dental technician metal; patient already has appointments scheduled with commercial loan officer and neurologist History Interval history: no events overnight, no specific complaints, depressed, not willing to talk Hospitalist Physical - Constitutional Vitals: Temp Pulse Resp BP Pulse Ox 98.6 F 57 L 18 176/71 100 01/07/17 07:55 01/07/17 08:39 01/07/17 07:55 01/07/17 07:55 01/07/17 07:55 General appearance: Present: no acute distress, well-nourished - EENT Eyes: Present: PERRL, EOM intact - Neck Neck: Present: supple, normal ROM. Absent: masses or JVD - Respiratory Respiratory effort: normal Respiratory: bilateral: CTA, negative: rhonchi, wheezing - Cardiovascular Rhythm: regular Heart Sounds: Present: S1 & S2. Absent: systolic murmur - Extremities Extremities: no ischemia - Abdominal General gastrointestinal: soft, non-tender, non-distended, normal bowel sounds - Integumentary Integumentary: Present: warm, dry. Absent: jaundice, rash - Psychiatric Psychiatric: depressed - Neurologic Neurologic: CNII-XII intact, no focal deficits Results - Labs CBC & Chem 7: 01/07/17 05:58 01/07/17 05:58 Labs: Laboratory Last Values WBC 4.3 K/mm3 (4.5-11.0) L 01/07/17 05:58 RBC 3.04 M/mm3 (3.65-5.03) L 01/07/17 05:58 Hgb 9.9 gm/dl (10.1-14.3) L 01/07/17 05:58 Hct 28.4 % (30.3-42.9) L 01/07/17 05:58 MCV 93 fl (79-97) 01/07/17 05:58 MCH 33 pg (28-32) H 01/07/17 05:58 MCHC 35 % (30-34) H 01/07/17 05:58 RDW 14.9 % (13.2-15.2) 01/07/17 05:58 Plt Count 168 K/mm3 (140-440) 01/07/17 05:58 Lymph % (Auto) 32.2 % (13.4-35.0) 01/07/17 05:58 [place] % (Auto) 11.0 % (0.0-7.3) H 01/07/17 05:58 Eos % (Auto) 5.9 % (0.0-4.3) H 01/07/17 05:58 Baso % (Auto) 0.6 % (0.0-1.8) 01/07/17 05:58 Lymph # 1.4 K/mm3 (1.2-5.4) 01/07/17 05:58 [place] # 0.5 K/mm3 (0.0-0.8) 01/07/17 05:58 Eos # 0.2 K/mm3 (0.0-0.4) 01/07/17 05:58 Baso # 0.0 K/mm3 (0.0-0.1) 01/07/17 05:58 Seg Neutrophils % 50.3 % (40.0-70.0) 01/07/17 05:58 Seg Neutrophils # 2.1 K/mm3 (1.8-7.7) 01/07/17 05:58 Sodium 141 mmol/L (137-145) 01/07/17 05:58 Potassium 5.1 mmol/L (3.6-5.0) H 01/07/17 05:58 Chloride 104.5 mmol/L (98-107) 01/07/17 05:58 Carbon Dioxide 23 mmol/L (22-30) 01/07/17 05:58 Anion Gap 19 mmol/L 01/07/17 05:58 BUN 49 mg/dL (7-17) H 01/07/17 05:58 Creatinine 2.4 mg/dL (0.7-1.2) H 01/07/17 05:58 Estimated GFR 25 ml/min 01/07/17 05:58 BUN/Creatinine Ratio 20 % 01/07/17 05:58 Glucose 153 mg/dL (65-100) H 01/07/17 05:58 POC Glucose 152 (70-105) H 01/07/17 08:02 Hemoglobin A1c 5.9 % (4-6) 01/03/17 06:58 Calcium 8.5 mg/dL (8.4-10.2) 01/07/17 05:58 Phosphorus 3.40 mg/dL (2.5-4.5) 01/07/17 05:58 Magnesium 2.00 mg/dL (1.7-2.3) 01/03/17 06:00 Total Creatine Kinase 56 units/L (30-135) 01/03/17 06:00 Troponin T < 0.010 ng/mL (0.00-0.029) 01/01/17 22:31 NT-Pro-B Natriuret Pep 987.1 pg/mL (0-900) H 01/03/17 06:00 Triglycerides 80 mg/dL (2-149) 01/03/17 06:58 Cholesterol 208 mg/dL (50-199) H 01/03/17 06:58 LDL Cholesterol Direct 127 mg/dL (50-130) 01/03/17 06:58 HDL Cholesterol 65 mg/dL (40-59) H 01/03/17 06:58 Cholesterol/HDL Ratio 3.20 % 01/03/17 06:58 Urine Color Straw (Yellow) 01/03/17 11:16 Urine Turbidity Clear (Clear) 01/03/17 11:16 Urine pH 7.0 (5.0-7.0) 01/03/17 11:16 Ur Specific [place] 1.014 (1.003-1.030) 01/03/17 11:16 Urine Protein 30 mg/dl mg/dL (Negative) 01/03/17 11:16 Urine Glucose (UA) 50 mg/dL (Negative) 01/03/17 11:16 Urine Ketones Neg mg/dL (Negative) 01/03/17 11:16 Urine Blood Neg (Negative) 01/03/17 11:16 Urine Nitrite Neg (Negative) 01/03/17 11:16 Urine Bilirubin Neg (Negative) 01/03/17 11:16 Urine Urobilinogen < 2.0 mg/dL (<2.0) 01/03/17 11:16 Ur Leukocyte Esterase Neg (Negative) 01/03/17 11:16 Urine WBC (Auto) < 1.0 /HPF (0.0-6.0) 01/03/17 11:16 Urine RBC (Auto) 1.0 /HPF (0.0-6.0) 01/03/17 11:16 U Epithel Cells (Auto) < 1.0 /HPF (0-13.0) 01/03/17 11:16 Urine Bacteria (Auto) 1+ /HPF (Negative) 01/03/17 11:16 Urine Eosinophils None seen (None Seen) 01/03/17 11:16 Urine Creatinine 69.9 mg/dL (0.1-20.0) H 10/20/17 11:16 Urine Sodium 107 mEq/L 01/03/17 11:16 Urine Urea Nitrogen 692 01/03/17 11:16
[2017-01-07] MEDS: APRESOLINE PO SCH ×2 (15:51→21:48)
[2017-01-07] MEDS: ZOCOR PO SCH (21:47)
[2017-01-07] MEDS: NEURONTIN PO SCH (21:47)
[2017-01-08] MEDS: NACL 0.9% 1000 ML 1,000 ML IV SCH (03:00)
[2017-01-08] MEDS: HEPARIN SUB-Q SCH ×2 (05:02→14:31)
[2017-01-08] MEDS: APRESOLINE PO SCH ×2 (05:03→14:31)
[2017-01-08 06:29] LABS: Calcium 8.1 mg/dL (8.4-10.2); Chloride 108.3 mmol/L (98-107); Phosphorous 3.4 mg/dL (2.5-4.5); Potassium 4.5 mmol/L (3.6-5.0)
[2017-01-08] MEDS: NOVOLOG SUB-Q SCH ×2 (08:24→12:33)
[2017-01-08] MEDS: GLUCOTROL PO SCH (08:56)
[2017-01-08] MEDS: PEPCID PO SCH (10:22)
[2017-01-08] MEDS: ASPIRIN PO SCH (10:22)
[2017-01-08] MEDS: COLACE PO SCH (10:22)
[2017-01-08] MEDS: PLAVIX PO SCH (10:22)
[2017-01-08] MEDS: KEPPRA PO SCH (10:23)
--- NOTE | 2017-01-08 10:54 | Discharge Summary ---
Providers - Providers Date of Admission: 01/02/17 02:05 Date of discharge: 01/08/17 Attending physician: GAY MOLINA 01/02/17 02:56 Consult to Case Management [CONS] Routine Services Needed at Discharge: Physical Therapy Notified:: Case management Occupational Therapy Evaluate and Treat [CONS] Routine Comment: Reason For Exam: Neuro deficits Physical Therapy Evaluation and Treat [CONS] Routine Comment: Reason For Exam: Neuro deficits Speech Therapy Evaluation and Treat [CONS] Routine Reason For Exam: swallow eval 01/02/17 02:58 Consult to Physician [CONS] Routine Consulting Provider: ALMAZ ABDI Reason For Exam: CKD Place consult to:: Nephrology Notified:: Jessenia ZUNIGA Comment:: Dr. Abdi is aware of consult 01/06/17 07:04 Consult to Wound/ET Nurse [CONS] Urgent Reason For Exam: wound eval Primary care physician: COMMUNITY COORDINATOR Hospitalization Reason for admission: decreased responsiveness Condition: Stable Pertinent studies: CT head MRI brain ECHO CXR Renal ultrasound Hospital course: Patient is a 61 year old female with CAD status post CABG, diabetes, hypertension, CKD with temporary dialysis in the past, just started on new antihypertensives by her counterintelligence/humint specialist and subsequently had a syncopal episode?/ decreased responsiveness, then found to be bradycardic and hypotensive; those medications where Coreg, lisinopril and torsemide, which have been held after admission and BP/HR slowly trended up; BP normalized and became elevated, but heart rate remained at the lower limit of normal; in this situation, beta norma continued to be held and she was started on hydralazine for hypertension treatment. Also had acute on chronic renal disease likely secondary to RUSSELL inhibitor/diuretic use along with poor by mouth intake; received IV fluids and renal function improved, but creatinine stabilizes around 2.2 which is her new baseline (previously 1.9-2); hyperkalemia has been treated medically. As patient has dementia, discussion about continued care was held with her sister which is also her POA. She already has appointments scheduled with her counterintelligence/humint specialist and neurologist. She will also needs to follow with cardiology as she has coronary artery disease, status post CABG, and now BB , ACEI on hold. Discharged in stable condition. Discharge diagnoses: 1. Autonomic instability 2. Acute renal failure superimposed on chronic kidney disease 3. Metabolic acidosis 4. Hyperkalemia 3. Hypertension/Hypotension likely drug-induced 4. Bradycardia likely but drug-induced 5. CAD status post CABG 8. Hyperlipidemia 9. Diabetes 10. Presumed CVA/TIA - negative work-up 11. Seizure disorder 12. Dementia Disposition: [id number]/[place]-06 HOME UNDER HOME HL Time spent for discharge: 40 min Core Measure Documentation - Palliative Care Palliative Care/ Comfort Measures: Not Applicable - Core Measures Any of the following diagnoses?: none Exam - Physical Exam Narrative exam: Seen and examined: - Constitutional Vitals: Temp Pulse Resp BP Pulse Ox 97.3 F L 61 18 169/85 100 01/08/17 08:14 01/08/17 10:00 01/08/17 08:14 01/08/17 08:12 01/08/17 08:12 General appearance: Present: no acute distress, well-nourished - EENT Eyes: Present: PERRL, EOM intact - Neck Neck: Present: supple, normal ROM. Absent: masses or JVD - Respiratory Respiratory effort: normal Respiratory: bilateral: CTA, negative: rhonchi, wheezing - Cardiovascular Rhythm: regular Heart Sounds: Present: S1 & S2. Absent: systolic murmur - Extremities Extremities: no ischemia - Abdominal General gastrointestinal: Present: soft, non-tender, non-distended, normal bowel sounds - Psychiatric Psychiatric: no intact judgment & insight, no memory intact, depressed - Neurologic Neurologic: no focal deficits Plan Activity: advance as tolerated, fall precautions Diet: low cholesterol, low salt Additional Instructions: Follow-up with your counterintelligence/humint specialist and urologist as already scheduled. Follow-up with your brass bobbin winder Follow up with: PRIMARY CARE, [Primary Care Provider] - 3-5 Days Prescriptions: Gabapentin [Neurontin] 300 mg PO QHS #30 capsule Simvastatin [Zocor TAB] 20 mg PO QHS #60 tablet Clopidogrel [Plavix] 75 mg PO DAILY #30 tablet Docusate Sodium [Colace CAP] 100 mg PO BID #60 capsule Famotidine [Pepcid] 10 mg PO BID #60 tablet glipiZIDE [Glucotrol] 5 mg PO QDDIAB #60 tablet hydrALAZINE [Apresoline TAB] 10 mg PO Q8HR #90 tablet levETIRAcetam [Keppra TAB] 500 mg PO BID #60 tablet
--- NOTE | 2017-01-08 13:20 | Progress Note ---
Assessment and Plan Acute Renal failure possible pre renal vs ATN CKD stage 3-4: -BL Cr 1.9 -Cr trending down. -On IVFs. -Renally dose all meds and avoid nephrotoxic meds -Strict I/Os Syncope: -CT/MRI brain -ve. -Could have due to hypotension from BP meds as orthostatic VS were +ve. -Per Primary Essential Hypertension: -on hydrazine. titrate to make sure no orthostatic hypotension. Diabetes Mellitus type 2 on insulin: -Per primary Metabolic acidosis: -Improved. -Monitor Coronary artery disease s/p CABG: -On plavix and statin Hyperlipidemia, chronic: -Target LDL <70 -On statin Pt should f/u with [facility] 1 week after discharge. Miguel Munguia MD Nephrology, Hypertension, Dialysis, Transplantation Phone no: [phone] Subjective Date of service: 01/08/17 Principal diagnosis: ARF Interval history: Denies Cp/shob. Objective - Exam Narrative Exam: GE: Awake HEENT: Normocephalic Neck: No JVD Chest: CTAB CVS: RRR Abd: Soft/BS+ Ext: No cce Neuro: Awake, following commands - Vital Signs Vital signs: Vital Signs - 12hr 01/08/17 01/08/17 01/08/17 04:00 04:15 08:11 Temperature 97.5 F L Pulse Rate 50 L 55 L 57 L Pulse Rate [ Apical] Respiratory 20 Rate Blood Pressure 183/61 169/85 O2 Sat by Pulse 100 97 Oximetry 01/08/17 01/08/17 01/08/17 08:12 08:14 10:00 Temperature 97.3 F L Pulse Rate 60 53 L Pulse Rate [ 61 Apical] Respiratory 18 Rate Blood Pressure 169/85 O2 Sat by Pulse 100 Oximetry - Lab 01/07/17 05:58 01/08/17 05:48 Most recent lab results Calcium 8.1 mg/dL (8.4-10.2) L 01/08/17 05:48 Phosphorus 3.40 mg/dL (2.5-4.5) 01/08/17 05:48 Magnesium 2.00 mg/dL (1.7-2.3) 01/03/17 06:00 Urine Creatinine 69.9 mg/dL (0.1-20.0) H 01/03/17 11:16 Urine Sodium 107 mEq/L 01/03/17 11:16
[2017-01-08 14:34] VITALS: BP 181/76
== END 2017-01-08 15:30 | disposition home or self-care (01) | DRG 73 ==
LOC: ED 20:53 → 4A 01-02 02:05
PROVIDERS: ADMIT Internal Medicine; ATTEND Internal Medicine
DX: G90.8 Other disorders of autonomic nervous system (principal); N17.0 Acute kidney failure with tubular necrosis; E87.2 Acidosis; E11.65 Type 2 diabetes mellitus with hyperglycemia; F03.90 Unspecified dementia, unspecified severity, without behavioral disturbance, psychotic disturbance, mood disturbance, and anxiety; E11.22 Type 2 diabetes mellitus with diabetic chronic kidney disease; I12.9 Hypertensive chronic kidney disease with stage 1 through stage 4 chronic kidney disease, or unspecified chronic kidney disease; Z95.1 Presence of aortocoronary bypass graft; T50.995A Adverse effect of other drugs, medicaments and biological substances, initial encounter; I95.2 Hypotension due to drugs; I25.10 Atherosclerotic heart disease of native coronary artery without angina pectoris; Z88.1 Allergy status to other antibiotic agents; Z79.899 Other long term (current) drug therapy; E78.5 Hyperlipidemia, unspecified; E87.5 Hyperkalemia; G40.909 Epilepsy, unspecified, not intractable, without status epilepticus; N14.1 Nephropathy induced by other drugs, medicaments and biological substances; T39.395A Adverse effect of other nonsteroidal anti-inflammatory drugs [NSAID], initial encounter; Y92.89 Other specified places as the place of occurrence of the external cause; Z86.73 Personal history of transient ischemic attack (TIA), and cerebral infarction without residual deficits
CPT/HCPCS: 36415; 70450; 70544; 70551; 71010; 76770; 80048; 80061; 81001; 82550; 82570; 82962; 83036; 83735; 83880; 84100; 84300; 84484; 84520; 85025; 89050; 93005; 93010; 93308; 93321; 93325; 93880; A6250; G8978-GP; G8979-GP; G8980-GP; G8996-GN; G8997-GN; G8998-GN; J1644; J1815; J7030

== ENCOUNTER 2018-10-17 10:07 | Inpatient (IN) | payer MEDICARE ==
--- NOTE | 2018-10-17 10:34 | Emergency Department Report ---
ED General Adult HPI - General Chief complaint: Neuro Symptoms/Deficit Stated complaint: WEAKNESS Time Seen by Provider: 10/17/18 10:17 Source: family, RN notes reviewed, old records reviewed Mode of arrival: Wheelchair Limitations: Altered Mental Status, Physical Limitation - History of Present Illness Initial comments: This is a 63-year-old female. I have evaluated this patient in the past. She currently does not have a primary care doctor. Her extruding department supervisor is Dr. Anderson. Her past medical history includes hypertension, diabetes, heart disease, dementia, renal insufficiency The patient is brought to the hospital by her sister for weakness and altered mental status. His sister believes that the patient's last known well time is Friday evening or morning. Today is Friday. She is not sure. Typically, the patient is able to perform some of her activities of daily living. As per the sister, the patient was in bed all day yesterday, without moving. There is a concern about new left-sided weakness. The sister is not sure when this started. She says the patient was in bed all day yesterday. She says the patient was moving her lower extremities bilaterally yesterday in bed. She is not sure if the patient was moving her left arm. She indicates that she thinks she saw the patient move her left arm earlier on today, but she is not certain. The patient's sister is not sure about any fevers or chills, nausea or vomiting, although she thinks that they are not present. She doesn't think that there are any new medications, but she is not sure. The patient herself is nonverbal, does not communicate, does not follow commands, and is unable to describe exacerbating or relieving factors, qualitative nature of her symptoms, or radiation. As per her sister, she is not sure if there is a signed power of ambulatory service representative. The patient's sister is Ms Alexandra No [phone] -: unknown Radiation: other Quality: other Consistency: other Improves with: other Worsens with: other Associated Symptoms: other - Related Data Home Medications Medication Instructions Recorded Confirmed Last Taken Latanoprost 0.005% 1 drop OP QPM 01/02/17 10/17/18 Unknown Sodium Bicarbonate 325 mg PO DAILY 01/02/17 10/17/18 Unknown Previous Rx's Medication Instructions Recorded Last Taken Type Ergocalciferol [Vitamin D2] 50,000 unit PO QWEEK capsule 09/25/16 Unknown Rx Clopidogrel [Plavix] 75 mg PO DAILY #30 tablet 01/08/17 Unknown Rx Docusate Sodium [Colace CAP] 100 mg PO BID #60 capsule 01/08/17 Unknown Rx Famotidine [Pepcid] 10 mg PO BID #60 tablet 01/08/17 Unknown Rx Gabapentin [Neurontin] 300 mg PO QHS #30 capsule 01/08/17 Unknown Rx Simvastatin [Zocor TAB] 20 mg PO QHS #60 tablet 01/08/17 Unknown Rx glipiZIDE [Glucotrol] 5 mg PO QDDIAB #60 tablet 01/08/17 Unknown Rx hydrALAZINE [Apresoline TAB] 10 mg PO Q8HR #90 tablet 01/08/17 Unknown Rx levETIRAcetam [Keppra TAB] 500 mg PO BID #60 tablet 01/08/17 Unknown Rx Allergies Allergy/AdvReac Type Severity Reaction Status Date / Time NSAIDS (Non-Steroidal AdvReac Unknown Verified 01/02/17 05:56 Anti-Inflamma Tetracyclines AdvReac Unknown Verified 09/26/14 12:09 ED Review of Systems ROS: Stated complaint: WEAKNESS Other details as noted in HPI Comment: Unobtainable due to pts medical conditions (per family) Neurological: weakness, confusion ED Past Medical Hx - Past Medical History Previous Medical History?: Yes Hx Hypertension: Yes (X 15 YRS) Hx CVA: Yes Hx Heart Attack/AMI: Yes (Triple bypass 2008) Hx Congestive Heart Failure: (pt denies being diagnosed) Hx Diabetes: Yes Hx GERD: Yes Hx Renal Disease: Yes Hx Arthritis: Yes Hx Headaches / Migraines: Yes (MIGRAINES) Hx Seizures: Yes (LAST SEIZURE 09/2015) Hx Dementia: Yes Additional medical history: triple bypass 2008 - Surgical History Past Surgical History?: Yes Hx Open Heart Surgery: Yes (CABG 2008) Additional Surgical History: triple bypass 2008 - Social History Smoking Status: Never Smoker Substance Use Type: Prescribed - Medications Home Medications: Home Medications Medication Instructions Recorded Confirmed Last Taken Type Ergocalciferol [Vitamin D2] 50,000 unit PO QWEEK capsule 09/25/16 10/17/18 Unknown Rx Latanoprost 0.005% 1 drop OP QPM 01/02/17 10/17/18 Unknown History Sodium Bicarbonate 325 mg PO DAILY 01/02/17 10/17/18 Unknown History Clopidogrel [Plavix] 75 mg PO DAILY #30 tablet 01/08/17 10/17/18 Unknown Rx Docusate Sodium [Colace CAP] 100 mg PO BID #60 capsule 01/08/17 10/17/18 Unknown Rx Famotidine [Pepcid] 10 mg PO BID #60 tablet 01/08/17 10/17/18 Unknown Rx Gabapentin [Neurontin] 300 mg PO QHS #30 capsule 01/08/17 10/17/18 Unknown Rx Simvastatin [Zocor TAB] 20 mg PO QHS #60 tablet 01/08/17 10/17/18 Unknown Rx glipiZIDE [Glucotrol] 5 mg PO QDDIAB #60 tablet 01/08/17 10/17/18 Unknown Rx hydrALAZINE [Apresoline TAB] 10 mg PO Q8HR #90 tablet 01/08/17 10/17/18 Unknown Rx levETIRAcetam [Keppra TAB] 500 mg PO BID #60 tablet 01/08/17 10/17/18 Unknown Rx ED Physical Exam - General Limitations: Altered Mental Status, Physical Limitation General appearance: in no apparent distress - Head Head exam: Present: atraumatic, normocephalic - Eye Eye exam: Present: normal appearance, other (the patient closes her eyes very tightly when an ocular and pupillary examination is attempted. There is no o bvious discharge. The patient will not open up her eyes) - ENT ENT exam: Present: normal exam, normal orophraynx, mucous membranes moist, normal external ear exam - Neck Neck exam: Present: normal inspection, full ROM. Absent: tenderness, meningismus - Respiratory Respiratory exam: Present: normal lung sounds bilaterally. Absent: respiratory distress - Cardiovascular Cardiovascular Exam: Present: normal rhythm, bradycardia, normal heart sounds. Absent: tachycardia, irregular rhythm, systolic murmur, diastolic murmur, rubs, gallop - GI/Abdominal GI/Abdominal exam: Present: soft. Absent: distended, tenderness, guarding, rebound, rigid, pulsatile mass - Extremities Exam Extremities exam: Present: normal inspection (hyperpigmented nonblanching nontender or lesions are noted on the bilateral upper, lower extremity), other (2+ pulses noted in the bilateral upper, lower extremities. Compartments soft. No long bony tenderness. The pelvis is stable.). Absent: tenderness, calf tenderness - Back Exam Back exam: Present: normal inspection. Absent: tenderness, CVA tenderness (R), CVA tenderness (L), paraspinal tenderness, vertebral tenderness - Neurological Exam Neurological exam: Present: altered, other (there is no facial droop. Patient noted to be moving her right arm and right leg. Sensation is intact to pinch in the bilateral upper, lower extremities. Detailed neurologic examination is not possible secondary to altered mental status and patient's inability to cooperate with the exam.) - Psychiatric Psychiatric exam: Present: other (the patient is nonverbal) - Skin Skin exam: Present: warm ED Course Vital Signs 10/17/18 10/17/18 10/17/18 10:10 14:12 14:16 Temperature 97.7 F Pulse Rate 57 L 84 Pulse Rate [ 85 Anterior Bilateral Throughout] Respiratory 16 16 Rate Respiratory 19 Rate [Anterior Bilateral Throughout] Blood Pressure 128/78 Blood Pressure 151/102 [Left] O2 Sat by Pulse 87 96 Oximetry - Reevaluation(s) Reevaluation #1: 10/17/18 10:34 Differential diagnosis, including not limited to: Dementia, stroke, pneumonia, urinary tract infection, thyroid derangement, electrolyte derangement Assessment and plan: 63-year-old female, with an exact last known well time, family is not reliable to give an exact last known well time, therefore, not a TPA candidate, as patient has been reportedly weak and altered for greater than 4.5 hours. Her neurologic examination suggests left-sided magalie-weakness, although, the patient does not cooperate with exam secondary to altered mental status, dementia. Also has a known history of renal insufficiency. Given that family thinks that patient began to become weak over 24 hours ago, even if this is a large vessel occlusion, the patient would not benefit from endovascular intervention. We will obtain noncontrast CT scan of the brain, EKG, chest x-ray, screening la boratory studies, obtain neurology consult, and reassess after that appointment. Case management consult has been requested as well. Reevaluation #2: 10/17/18 12:05 Patient seen and evaluated by stroke neurology, Dr. Cheri Hughes, who agrees that patient does not merit criteria for TPA, and does not require emergent endovascular imaging, given that it appears that symptoms present for greater than 24 hours. She agrees with aspirin, and also recommends Keppra. I had extensive discussion with the patient's sister, and we discussed prognosis, long-term goals of care, and need to clarify advanced directives. Currently, the patient is full code, but patient's sister is going to engage family in a discussion to clarify goals of care. Case is presented to the Hospital physician, Dr. Jonathon Sotelo, who accepts patient to his service Reevaluation #3: 10/17/18 12:29 Laboratory studies show renal insufficiency, hyperkalemia. As per verbal report from lab, labs are not hemolyzed. Patient will be treated medically for hyperkalemia. Emergency nephrology consult is requested. Elevated troponin reviewed and appreciated, likely secondary to type II myocardial infarction, likely secondary to dehydration, renal insufficiency, and may be related to patient's stroke. Given history of presumed subacute stroke, would not recommend systemic anticoagulation at this time, given risk for hemorrhagic transformation. 10/17/18 12:35 Discussed with nephrology blood donor unit assistant, Dr. Joseph Shore, who will arrange for dialysis orders. Patient does not have dialysis access, therefore, emergency calls placed to vascular surgery to place permacath or Vas-Cath. Hospital physician is updated Reevaluation #4: 10/17/18 12:47 Discussed with vascular surgery, Dr. Cole, who will evaluate the patient for placement of dialysis catheter. Extensive phone conversation have a patient's sister, Mrs. No. We discussed the need for emergent dialysis, and the need for emergent placement of Vas-Cath or permacath. The patient's sister gives verbal permission for all the above. We discussed risks, benefits, alternatives. ED Medical Decision Making - Lab Data Result diagrams: 10/17/18 10:19 10/17/18 Unknown Vital Signs 10/17/18 10:10 Temperature 97.7 F Pulse Rate 57 L Respiratory 16 Rate Blood Pressure 128/78 O2 Sat by Pulse 87 Oximetry Lab Results 10/17/18 Range/Units 10:16 POC Glucose 277 H (70-105) - EKG Data EKG shows normal: sinus rhythm - EKG Data 10/17/18 10:50 This is a sinus rhythm, 78 beats minute, normal axis, QTC 452 ms, poor R progression, atrial enlargement, nonspecific ST abnormality, EKG is abnormal, there is low voltage, Q waves noted in inferior leads, the EKG is not consistent with ST elevation myocardial infarction. The EKG appears to be unchanged from prior EKG from December 2016. - Radiology Data Radiology results: report reviewed, image reviewed Print Report Referring Physician: KAREEM BETTENCOURT Patient Name: ADOLFO JONES Date of : 1955 Sex: Female Report Date: 2018-10-17 Report Status: Finalized Findings [facility] [address] [place] [address] Cat Scan Report Signed Patient: ADOLFO JONES MR#: [id number] : 1955 Acct:[id number] Age/Sex: 63 / F ADM Date: 10/17/18 Loc: ED Attending Dr: Ordering Physician: KAREEM BETTENCOURT MD Date of Service: 10/17/18 Procedure(s): CT head/brain wo con Accession Number(s): [id number] cc: KAREEM BETTENCOURT MD CT head/brain wo con INDICATION: neuro deficits <6hrs or sx present upon awakening. TECHNIQUE: Routine CT head without contrast. All CT scans at this location are performed using CT dose reduction for ALARA by means of automated exposure control. Multiplanar reformats. COMPARISON: Brain CT 01/01/2017 FINDINGS: BRAIN / INTRACRANIAL CONTENTS: No acute hemorrhage, mass effect, midline shift, or hydrocephalus. Regional hypoattenuation with loss of laboy-white differentiation is present in the left TRANSITION NURSE territory involving the inferior left occipital lobe. There are similar changes in the anterior frontal lobe, corresponding to left MCA territory. Ventricular volumes are unchanged. ORBITS: No significant abnormality of visualized orbits. SINUSES / MASTOIDS: No significant abnormality of visualized sinuses and mastoid air cells. ADDITIONAL FINDINGS: None. IMPRESSION: 1. Recent infarcts in the left MCA and left TRANSITION NURSE territories. Although there is no volume loss associated with TRANSITION NURSE infarct, the hypoattenuation of the parenchyma and loss of laboy-white differentiation is more conspicuous, suggesting this may be an older infarct. 2. No acute hemorrhage. Report of these findings was called to Dr. Novak in the emergency department at the time of dictation. Signer Name: Howard Osborn MD Signed: 10/17/2018 10:59 AM Workstation Name: [id number] Transcribed By: OSCAR Dictated By: Howard Osborn MD Electronically Authenticated By: Howard Osborn MD Signed Date/Time: 10/17/18 1059 Critical Care Time: Yes Critical care time in (mins) excluding proc time.: 120 Critical care attestation.: If time is entered above; I have spent that time in minutes in the direct care of this critically ill patient, excluding procedure time. ED Disposition Clinical Impression: Uremia, Hyperkalemia Altered mental status Qualifiers: Altered mental status type: unspecified Qualified Code(s): R41.82 - Altered me ntal status, unspecified CVA (cerebral vascular accident) Qualifiers: CVA mechanism: unspecified Qualified Code(s): I63.9 - Cerebral infarction, unspecified Disposition: DC-09 OP ADMIT IP TO THIS HOSP Is pt being admited?: Yes Condition: Critical
[2018-10-17 10:54] LABS: Basophils % (Auto) 0.3 % (0.0-1.8); Hematocrit 35.9 % (30.3-42.9); Hemoglobin 11.6 gm/dl (10.1-14.3); Lymphocytes % (Auto) 9.5 % (13.4-35.0); Mean Corpuscular HGB Conc 32 % (30-34); Mean Corpuscular Volume 94 fl (79-97); Monocytes # (Auto) 0.6 K/mm3 (0.0-0.8); Monocytes % (Auto) 5.5 % (0.0-7.3); Platelet Count 169 K/mm3 (140-440); Red Blood Count 3.81 M/mm3 (3.65-5.03); Red Cell Distribution Width 15.2 % (13.2-15.2)
[2018-10-17] MEDS ORDERED: KEPPRA 500 MG in D5W 100 ML IV ONE (11:00)
[2018-10-17 11:03] LABS: INR 1.81 (0.87-1.13)
--- NOTE | 2018-10-17 11:03 | Cat Scan Report ---
CT head/brain wo con INDICATION: neuro deficits <6hrs or sx present upon awakening. TECHNIQUE: Routine CT head without contrast. All CT scans at this location are performed using CT dos e reduction for ALARA by means of automated exposure control. Multiplanar reformats. COMPARISON: Brain CT 01/01/2017 FINDINGS: BRAIN / INTRACRANIAL CONTENTS: No acute hemorrhage, mass effect, midline shift, or hydrocephalus. Reg ional hypoattenuation with loss of laboy-white differentiation is present in the left ATHLETIC SCOUT territory in volving the inferior left occipital lobe. There are similar changes in the anterior frontal lobe, cor responding to left MCA territory. Ventricular volumes are unchanged. ORBITS: No significant abnormality of visualized orbits. SINUSES / MASTOIDS: No significant abnormality of visualized sinuses and mastoid air cells. ADDITIONAL FINDINGS: None. IMPRESSION: 1. Recent infarcts in the left MCA and left ATHLETIC SCOUT territories. Although there is no volume loss associa ricardo with ATHLETIC SCOUT infarct, the hypoattenuation of the parenchyma and loss of laboy-white differentiation is more conspicuous, suggesting this may be an older infarct. 2. No acute hemorrhage. Report of these findings was called to Dr. Novak in the emergency department at the time of dictation. Signer Name: Howard Osborn MD Signed: 10/17/2018 10:59 AM Workstation Name: [id number]
[2018-10-17 11:04] LABS: Partial Thromboplastin Time 35.6 Sec. (24.2-36.6)
[2018-10-17 11:53] LABS: Bilirubin,Urine NEG (Negative); Blood,Urine SM (Negative); Color,Urine Yellow (Yellow); Mucus,Urine FEW /HPF; Urobilinogen,Urine < 2.0 mg/dL (<2.0)
[2018-10-17] MEDS ORDERED: ASPIRIN PR ONE (12:08)
[2018-10-17] MEDS ORDERED: CALCIUM GLUCONATE 2,000 MG in NACL 0.9% 100 ML IV ONE (12:28)
[2018-10-17] MEDS ORDERED: D50W (25GM) Syringe IV ONE (12:28)
[2018-10-17] MEDS ORDERED: HumuLIN R IV ONE (12:28)
[2018-10-17] MEDS ORDERED: PROVENTIL IH ONE ×2 (12:28→13:39)
[2018-10-17] MEDS ORDERED: KIONEX PR ONE (12:28)
[2018-10-17] MEDS ORDERED: NACL 0.9% 500 ML 500 ML IV ONE (12:29)
[2018-10-17 12:38] LABS: Chol/HDL Ratio 2.25 %
--- NOTE | 2018-10-17 12:40 | Consultation ---
HISTORY OF PRESENT ILLNESS: A 63-year-old black female who presents to the Emergency Room of [facility] with onset of weakness, numbness. Stroke alert was called. The patient was seen in the CT scan facility as part of the stroke alert. At the time of assessment of the patient, the patient was largely recovered. Review of her CT scan shows an old left parietal occipital infarct and she has previously been admitted to this hospital on 01/02/2017 and at that time, MRI scan of the brain showed evidence of no acute intracranial abnormalities or significant interval changes or microvascular changes. I did review that MRI scan and it showed no acute stroke, widespread atrophy was noted. There was certainly a suggestion of an old infarct present on that MR scan that I am currently reviewing within the left medial occipital lobe with widening of the sulcal pattern suggestive of an old infarct, but it is quite minimal and reviewing the two imaging studies certainly does seem in the interval that this is a new finding. There is certainly more loss of the cortical sulcal and gyral pattern in the left occipital lobe compared to the previous study. I certainly would think it in the interval between 10/17/2018 and a prior MRI on 01/02/2017, there has been an occipital infarct on the left side. I do not think that this is acute. It looks chronic, certainly embolization of the posterior cerebral artery should be considered. Reviewing her old carotid ultrasound studies from 2016, she did not have any carotid occlusive disease. The degree of narrowing was less than 50%. Therefore, a possibility of some issue in the heart should be considered. I am reviewing her echocardiogram and there was left ventricular hypertrophy, ejection fraction was 55-60%. There was slight thickening of the aortic and mitral leaflets, but no evidence of an intramural clot. RECOMMENDATION: At this point is further workup for stroke. I believe the occipital stroke on the left side is clearly old. Comparing it to the old MRI scan, this is certainly an interval change from 2016 to 2018, in the two-year interval. I do not see anything on the echo that obviously would point to a source of embolization and she has no carotid occlusive disease, but obviously the carotid occlusive disease would be noted not pertinent to the posterior circulation. JOB# [id number] DELIA/LEANDER
--- NOTE | 2018-10-17 13:09 | Progress Note ---
Subjective Date of service: 10/17/18 Interval history: see my note from code stroke and CT scan review Objective - Vital Sign Vital Signs - 12hr 10/17/18 10:10 Temperature 97.7 F Pulse Rate 57 L Respiratory 16 Rate Blood Pressure 128/78 O2 Sat by Pulse 87 Oximetry - Laboratory Findings CBC and BMP: 10/17/18 10:19 10/17/18 Unknown Abnormal Lab Findings: Abnormal Labs 10/17/18 10/17/18 10/17/18 10:16 10:19 10:19 Lymph % (Auto) 9.5 L Lymph # 1.0 L Seg Neutrophils % 84.7 H Seg Neutrophils # 8.7 H PT 20.6 H INR 1.81 H Potassium Carbon Dioxide BUN Creatinine Glucose POC Glucose 277 H Troponin T HDL Cholesterol Salicylates Acetaminophen 10/17/18 10/17/18 10/17/18 Unknown Unknown Unknown Lymph % (Auto) Lymph # Seg Neutrophils % Seg Neutrophils # PT INR Potassium 6.6 H* Carbon Dioxide 10 L BUN 111 H Creatinine 6.5 H Glucose 351 H POC Glucose Troponin T 4.720 H* HDL Cholesterol 88 H Salicylates < 0.3 L Acetaminophen < 5.0 L
--- NOTE | 2018-10-17 13:23 | Consultation ---
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 she found tohave stroke on CT and severe renal failure hyperkalemia and metabolic acidosis, renal consult was requested for ARF management Past History Past Medical History: other (CKD, HTn and DM) Medications and Allergies Allergies Allergy/AdvReac Type Severity Reaction Status Date / Time NSAIDS (Non-Steroidal AdvReac Unknown Verified 01/02/17 05:56 Anti-Inflamma Tetracyclines AdvReac Unknown Verified 09/26/14 12:09 Home Medications Medication Instructions Recorded Confirmed Last Taken Type Ergocalciferol [Vitamin D2] 50,000 unit PO QWEEK capsule 09/25/16 10/17/18 Unknown Rx Latanoprost 0.005% 1 drop OP QPM 01/02/17 10/17/18 Unknown History Sodium Bicarbonate 325 mg PO DAILY 01/02/17 10/17/18 Unknown History Clopidogrel [Plavix] 75 mg PO DAILY #30 tablet 01/08/17 10/17/18 Unknown Rx Docusate Sodium [Colace CAP] 100 mg PO BID #60 capsule 01/08/17 10/17/18 Unknown Rx Famotidine [Pepcid] 10 mg PO BID #60 tablet 01/08/17 10/17/18 Unknown Rx Gabapentin [Neurontin] 300 mg PO QHS #30 capsule 01/08/17 10/17/18 Unknown Rx Simvastatin [Zocor TAB] 20 mg PO QHS #60 tablet 01/08/17 10/17/18 Unknown Rx glipiZIDE [Glucotrol] 5 mg PO QDDIAB #60 tablet 01/08/17 10/17/18 Unknown Rx hydrALAZINE [Apresoline TAB] 10 mg PO Q8HR #90 tablet 01/08/17 10/17/18 Unknown Rx levETIRAcetam [Keppra TAB] 500 mg PO BID #60 tablet 01/08/17 10/17/18 Unknown Rx Review of Systems ROS unobtainable: due to mental status Exam - Vital Signs Vital signs: Vital Signs Temp Pulse Resp BP Pulse Ox 97.7 F 57 L 16 128/78 87 10/17/18 10:10 10/17/18 10:10 10/17/18 10:10 10/17/18 10:10 10/17/18 10:10 Results - Lab Results 10/17/18 10:19 10/17/18 Unknown Most recent lab results Calcium 9.0 mg/dL (8.4-10.2) 10/17/18 Unknown Assessment and Plan acute renal failure on chronic kidney disease stage III/IV AG metabolic acidosis Hyperkalemia metabolic encephalopathy CVA - discussed with vascular and ER team, vascath placement is on going, STAT HD ordered - will assess needs daily for dialysis needs dialy and monitor signs of renal recovery - urine lyes, eos, cr, protein ordered - renal US ordered - renally dose meds - strict I&O - daily weight Benji Shore MD [phone]
--- NOTE | 2018-10-17 13:36 | Consultation ---
Past History Past Medical History: other (CKD, HTn and DM) Medications and Allergies Allergies Allergy/AdvReac Type Severity Reaction Status Date / Time NSAIDS (Non-Steroidal AdvReac Unknown Verified 01/02/17 05:56 Anti-Inflamma Tetracyclines AdvReac Unknown Verified 09/26/14 12:09 Home Medications Medication Instructions Recorded Confirmed Last Taken Type Ergocalciferol [Vitamin D2] 50,000 unit PO QWEEK capsule 09/25/16 10/17/18 Unknown Rx Latanoprost 0.005% 1 drop OP QPM 01/02/17 10/17/18 Unknown History Sodium Bicarbonate 325 mg PO DAILY 01/02/17 10/17/18 Unknown History Clopidogrel [Plavix] 75 mg PO DAILY #30 tablet 01/08/17 10/17/18 Unknown Rx Docusate Sodium [Colace CAP] 100 mg PO BID #60 capsule 01/08/17 10/17/18 Unknown Rx Famotidine [Pepcid] 10 mg PO BID #60 tablet 01/08/17 10/17/18 Unknown Rx Gabapentin [Neurontin] 300 mg PO QHS #30 capsule 01/08/17 10/17/18 Unknown Rx Simvastatin [Zocor TAB] 20 mg PO QHS #60 tablet 01/08/17 10/17/18 Unknown Rx glipiZIDE [Glucotrol] 5 mg PO QDDIAB #60 tablet 01/08/17 10/17/18 Unknown Rx hydrALAZINE [Apresoline TAB] 10 mg PO Q8HR #90 tablet 01/08/17 10/17/18 Unknown Rx levETIRAcetam [Keppra TAB] 500 mg PO BID #60 tablet 01/08/17 10/17/18 Unknown Rx Exam - Constitutional Vitals: Temp Pulse Resp BP Pulse Ox 97.7 F 57 L 16 128/78 87 10/17/18 10:10 10/17/18 10:10 10/17/18 10:10 10/17/18 10:10 10/17/18 10:10 Results - Labs CBC & Chem 7: 10/17/18 10:19 10/17/18 Unknown Labs: Abnormal lab results 10/17/18 10/17/18 10/17/18 Range/Units 10:16 10:19 10:19 Lymph % (Auto) 9.5 L (13.4-35.0) % Lymph # 1.0 L (1.2-5.4) K/mm3 Seg Neutrophils % 84.7 H (40.0-70.0) % Seg Neutrophils # 8.7 H (1.8-7.7) K/mm3 PT 20.6 H (12.2-14.9) Sec. INR 1.81 H (0.87-1.13) Potassium (3.6-5.0) mmol/L Carbon Dioxide (22-30) mmol/L BUN (7-17) mg/dL Creatinine (0.7-1.2) mg/dL Glucose (65-100) mg/dL POC Glucose 277 H (70-105) Troponin T (0.00-0.029) ng/mL HDL Cholesterol (40-59) mg/dL Salicylates (2.8-20.0) mg/dL Acetaminophen (10.0-30.0) ug/mL 10/17/18 10/17/18 10/17/18 Range/Units 13:14 Unknown Unknown Lymph % (Auto) (13.4-35.0) % Lymph # (1.2-5.4) K/mm3 Seg Neutrophils % (40.0-70.0) % Seg Neutrophils # (1.8-7.7) K/mm3 PT (12.2-14.9) Sec. INR (0.87-1.13) Potassium 6.6 H* (3.6-5.0) mmol/L Carbon Dioxide 10 L (22-30) mmol/L BUN 111 H (7-17) mg/dL Creatinine 6.5 H (0.7-1.2) mg/dL Glucose 351 H (65-100) mg/dL POC Glucose 330 H (70-105) Troponin T 4.720 H* (0.00-0.029) ng/mL HDL Cholesterol 88 H (40-59) mg/dL Salicylates < 0.3 L (2.8-20.0) mg/dL Acetaminophen (10.0-30.0) ug/mL 10/17/18 Range/Units Unknown Lymph % (Auto) (13.4-35.0) % Lymph # (1.2-5.4) K/mm3 Seg Neutrophils % (40.0-70.0) % Seg Neutrophils # (1.8-7.7) K/mm3 PT (12.2-14.9) Sec. INR (0.87-1.13) Potassium (3.6-5.0) mmol/L Carbon Dioxide (22-30) mmol/L BUN (7-17) mg/dL Creatinine (0.7-1.2) mg/dL Glucose (65-100) mg/dL POC Glucose (70-105) Troponin T (0.00-0.029) ng/mL HDL Cholesterol (40-59) mg/dL Salicylates (2.8-20.0) mg/dL Acetaminophen < 5.0 L (10.0-30.0) ug/mL Assessment and Plan 63 year old female who presents with multiple medical issues including acute renal failure and hyperkalemia requiring hemodialysis. R/B/A to sister discussed. Patient is moving too much and too confused to allow for internal jugular access. Plan for femoral vascath.
--- NOTE | 2018-10-17 13:38 | Operative Report ---
Operative Report Operative Report: EXAM: 1. Ultrasound-guided puncture of the right common femoral vein 2. Placement of a right common femoral vein nontunneled noncuffed hemodialysis catheter. DATE: 10/17/18 INDICATION: Acute renal failure requiring hemodialysis access. MEDICATIONS: Local anesthetic (1% lidocaine). DEVICES: Triple lumen nontunneled noncuffed hemodialysis catheter [employer] SALES: DAVIDE CASTORENA MD CONTRAST: None PROCEDURE: The risks, benefits, and alternatives were discussed and informed consent was obtained. The patient's right common femoral vein was assessed with ultrasound at bedside and determined to be patent prior to procedure. The patient was prepped and draped in a sterile fashion. The puncture site was anesthetized. Under sonographic guidance, the right common femoral vein was punctured with a 18-gauge micropuncture needle and a 0.035 inch wire was advanced through the needle. Over the 0.035 inch wire, dilatation was performed. The catheter was advanced over the wire. 2-0 nylon suture was used to secure the catheter. The central catheter port was charged with saline. 1000 units per mL of heparin was infused in the space of the dialysis movements. Biopatch and tegaderm were applied. Sterile dressing applied. FINDINGS: 1. Ultrasound documented patency of the right common femoral vein. The vessel was accessed under direct ultrasound guidance. IMPRESSION: 1. Successful ultrasound guided bedside placement of a right common femoral vein nontunneled noncuffed triple lumen hemodialysis catheter.
--- NOTE | 2018-10-17 15:03 | History and Physical Report ---
History of Present Illness Date of examination: 10/17/18 Date of admission: 10/17/18 12:08 Chief complaint: Altered sensorium for 3 days since 10/14/2018 History of present illness: 63-year-old -[place] female with history of hypertension type 2 diabetes coronary artery disease and chronic kidney disease brought in by her sister for weakness and altered mental status. The patient's last well-known diameters October 14. Patient is normally able to perform more activities of daily living. Patient was in bed estradiol day without getting out. Sister is not sure whether she is moving her extremities. No fever or chills. Patient is with decreased responsiveness and is nonverbal and does not follow commands. No recent travel. No fever or chills. No shortness of breath. In the ER code stroke workup was initiated Patient has a high BUN/creatinine requiring emergent hemodialysis. Past Medical History Previous Medical History?: Yes Hypertension: Yes (X 15 YRS) CVA: Yes Heart Attack/AMI: Yes (Triple bypass 2008) Congestive Heart Failure: (pt denies being diagnosed) Diabetes: Yes GERD: Yes Renal Disease: Yes Arthritis: Yes Headaches / Migraines: Yes (MIGRAINES) Seizures: Yes (LAST SEIZURE 09/2015) Dementia: Yes Additional medical history: triple bypass 2008 Surgical History Past Surgical History?: Yes Hx Open Heart Surgery: Yes (CABG 2008) Additional Surgical History: triple bypass 2008 - Social History Smoking Status: Never Smoker Substance Use Type: Prescribed Medications Home Medications: Home Medications Medication Instructions Recorded Confirmed Last Taken Type Ergocalciferol [Vitamin D2] 50,000 unit PO QWEEK capsule 09/25/16 10/17/18 Unknown Rx Latanoprost 0.005% 1 drop OP QPM 01/02/17 10/17/18 Unknown History Sodium Bicarbonate 325 mg PO DAILY 01/02/17 10/17/18 Unknown History Clopidogrel [Plavix] 75 mg PO DAILY #30 tablet 01/08/17 10/17/18 Unknown Rx Docusate Sodium [Colace CAP] 100 mg PO BID #60 capsule 01/08/17 10/17/18 Unknown Rx Famotidine [Pepcid] 10 mg PO BID #60 tablet 01/08/17 10/17/18 Unknown Rx Gabapentin [Neurontin] 300 mg PO QHS #30 capsule 01/08/17 10/17/18 Unknown Rx Simvastatin [Zocor TAB] 20 mg PO QHS #60 tablet 01/08/17 10/17/18 Unknown Rx glipiZIDE [Glucotrol] 5 mg PO QDDIAB #60 tablet 01/08/17 10/17/18 Unknown Rx hydrALAZINE [Apresoline TAB] 10 mg PO Q8HR #90 tablet 01/08/17 10/17/18 Unknown Rx levETIRAcetam [Keppra TAB] 500 mg PO BID #60 tablet 01/08/17 10/17/18 Unknown Rx Review of systems ROS: Stated complaint: WEAKNESS Other details as noted in HPI Comment: Unobtainable due to pts medical conditions (per family) Neurological: weakness, confusion Past History Past Medical History: other (CKD, HTn and DM) Medications and Allergies Allergies Allergy/AdvReac Type Severity Reaction Status Date / Time NSAIDS (Non-Steroidal AdvReac Unknown Verified 01/02/17 05:56 Anti-Inflamma Tetracyclines AdvReac Unknown Verified 09/26/14 12:09 Home Medications Medication Instructions Recorded Confirmed Last Taken Type Ergocalciferol [Vitamin D2] 50,000 unit PO QWEEK capsule 09/25/16 10/17/18 Unknown Rx Latanoprost 0.005% 1 drop OP QPM 01/02/17 10/17/18 Unknown History Sodium Bicarbonate 325 mg PO DAILY 01/02/17 10/17/18 Unknown History Clopidogrel [Plavix] 75 mg PO DAILY #30 tablet 01/08/17 10/17/18 Unknown Rx Docusate Sodium [Colace CAP] 100 mg PO BID #60 capsule 01/08/17 10/17/18 Unknown Rx Famotidine [Pepcid] 10 mg PO BID #60 tablet 01/08/17 10/17/18 Unknown Rx Gabapentin [Neurontin] 300 mg PO QHS #30 capsule 01/08/17 10/17/18 Unknown Rx Simvastatin [Zocor TAB] 20 mg PO QHS #60 tablet 01/08/17 10/17/18 Unknown Rx glipiZIDE [Glucotrol] 5 mg PO QDDIAB #60 tablet 01/08/17 10/17/18 Unknown Rx hydrALAZINE [Apresoline TAB] 10 mg PO Q8HR #90 tablet 01/08/17 10/17/18 Unknown Rx levETIRAcetam [Keppra TAB] 500 mg PO BID #60 tablet 01/08/17 10/17/18 Unknown Rx Exam - Physical Exam Narrative exam: Patient is lethargic and with decreased responsiveness - Constitutional Vitals: Temp Pulse Resp BP Pulse Ox 97.7 F 85 19 151/102 96 10/17/18 10:10 10/17/18 14:16 10/17/18 14:16 10/17/18 14:12 10/17/18 14:12 General appearance: Present: no acute distress, well-nourished - EENT Eyes: Present: PERRL ENT: hearing intact, clear oral mucosa - Neck Neck: Present: supple, normal ROM - Respiratory Respiratory effort: normal Respiratory: bilateral: CTA - Cardiovascular Heart rate: 78 Heart Sounds: Present: S1 & S2. Absent: rub, click - Extremities Extremities: no ischemia, pulses intact, pulses symmetrical, No edema Peripheral Pulses: within normal limits - Abdominal General gastrointestinal: Present: soft, non-tender, non-distended, normal bowel sounds Female genitourinary: Present: normal - Rectal Rectal Exam: deferred - Integumentary Integumentary: Present: clear, warm, dry - Musculoskeletal Musculoskeletal: generalized weakness, other (decreased responsiveness, responds to painful stimuli) - Psychiatric Psychiatric: other (decreased responsiveness) - Neurologic Neurologic: CNII-XII intact, moves all extremities - Allied Health Allied health notes reviewed: nursing, case management Results - Labs CBC & Chem 7: 10/17/18 10:19 10/17/18 Unknown Labs: Laboratory Last Values WBC 10.3 K/mm3 (4.5-11.0) 10/17/18 10:19 RBC 3.81 M/mm3 (3.65-5.03) 10/17/18 10:19 Hgb 11.6 gm/dl (10.1-14.3) 10/17/18 10:19 Hct 35.9 % (30.3-42.9) 10/17/18 10:19 MCV 94 fl (79-97) 10/17/18 10:19 MCH 31 pg (28-32) 10/17/18 10:19 MCHC 32 % (30-34) 10/17/18 10:19 RDW 15.2 % (13.2-15.2) 10/17/18 10:19 Plt Count 169 K/mm3 (140-440) 10/17/18 10:19 Lymph % (Auto) 9.5 % (13.4-35.0) L 10/17/18 10:19 [place] % (Auto) 5.5 % (0.0-7.3) 10/17/18 10:19 Eos % (Auto) 0.0 % (0.0-4.3) 10/17/18 10:19 Baso % (Auto) 0.3 % (0.0-1.8) 10/17/18 10:19 Lymph # 1.0 K/mm3 (1.2-5.4) L 10/17/18 10:19 [place] # 0.6 K/mm3 (0.0-0.8) 10/17/18 10:19 Eos # 0.0 K/mm3 (0.0-0.4) 10/17/18 10:19 Baso # 0.0 K/mm3 (0.0-0.1) 10/17/18 10:19 Seg Neutrophils % 84.7 % (40.0-70.0) H 10/17/18 10:19 Seg Neutrophils # 8.7 K/mm3 (1.8-7.7) H 10/17/18 10:19 PT 20.6 Sec. (12.2-14.9) H 10/17/18 10:19 INR 1.81 (0.87-1.13) H 10/17/18 10:19 APTT 35.6 Sec. (24.2-36.6) 10/17/18 10:19 18.7 Sec. (15.1-19.6) 10/17/18 10:19 Sodium 139 mmol/L (137-145) 10/17/18 Unknown Potassium 6.6 mmol/L (3.6-5.0) H* 10/17/18 Unknown Chloride 106.6 mmol/L (98-107) 10/17/18 Unknown Carbon Dioxide 10 mmol/L (22-30) L 10/17/18 Unknown 29 mmol/L 10/17/18 Unknown BUN 111 mg/dL (7-17) H 10/17/18 Unknown 6.5 mg/dL (0.7-1.2) H 10/17/18 Unknown Estimated GFR 8 ml/min 10/17/18 Unknown 17 % 10/17/18 Unknown Glucose 351 mg/dL (65-100) H 10/17/18 Unknown POC Glucose 330 (70-105) H 10/17/18 13:14 Calcium 9.0 mg/dL (8.4-10.2) 10/17/18 Unknown 4.720 ng/mL (0.00-0.029) H* 10/17/18 Unknown Triglycerides 102 mg/dL (2-149) 10/17/18 Unknown Cholesterol 198 mg/dL (50-199) 10/17/18 Unknown 116 mg/dL (50-130) 10/17/18 Unknown 88 mg/dL (40-59) H 10/17/18 Unknown 2.25 % 10/17/18 Unknown TSH 1.030 mlU/mL (0.270-4.200) 10/17/18 Unknown Free T4 1.26 ng/dL (0.76-1.46) 10/17/18 Unknown Yellow (Yellow) 10/17/18 11:25 Slightly-cloudy (Clear) 10/17/18 11:25 5.0 (5.0-7.0) 10/17/18 11:25 Ur Specific [place] 1.019 (1.003-1.030) 10/17/18 11:25 100 mg/dl mg/dL (Negative) 10/17/18 11:25 150 mg/dL (Negative) 10/17/18 11:25 Tr mg/dL (Negative) 10/17/18 11:25 Sm (Negative) 10/17/18 11:25 Neg (Negative) 10/17/18 11:25 Neg (Negative) 10/17/18 11:25 < 2.0 mg/dL (<2.0) 10/17/18 11:25 Ur Leukocyte Esterase Tr (Negative) 10/17/18 11:25 3.0 /HPF (0.0-6.0) 10/17/18 11:25 2.0 /HPF (0.0-6.0) 10/17/18 11:25 Few /HPF 10/17/18 11:25 Salicylates < 0.3 mg/dL (2.8-20.0) L 10/17/18 Unknown Acetaminophen < 5.0 ug/mL (10.0-30.0) L 10/17/18 Unknown Plasma/Serum Alcohol < 0.01 % (0-0.07) 10/17/18 Unknown Short CBC 10/17/18 Range/Units 10:19 WBC 10.3 (4.5-11.0) K/mm3 Hgb 11.6 (10.1-14.3) gm/dl Hct 35.9 (30.3-42.9) % Plt Count 169 (140-440) K/mm3 BMP 10/17/18 Unknown Sodium 139 Potassium 6.6 H* Chloride 106.6 Carbon Dioxide 10 L BUN 111 H Creatinine 6.5 H Glucose 351 H Calcium 9.0 Cardiac Enzymes 10/17/18 10/17/18 Range/Units 15:15 Unknown Total Creatine Kinase 3216 H (30-135) units/L Troponin T 4.720 H* (0.00-0.029) ng/mL Urine 10/17/18 Range/Units 11:25 Urine Color Yellow (Yellow) Urine pH 5.0 (5.0-7.0) Ur Specific [place] 1.019 (1.003-1.030) Urine Protein 100 mg/dl (Negative) mg/dL Urine Glucose (UA) 150 (Negative) mg/dL - Imaging and Cardiology EKG: report reviewed (sinus rhythm, heart rate of 78/m consider ischemia and lateral leads) CT Scan - head: report reviewed Imaging and Cardiology: Head CT IMPRESSION: 1. Recent infarcts in the left MCA and left SHOE CASER territories. Although there is no volume loss associated with SHOE CASER infarct, the hypoattenuation of the parenchyma and loss of laboy-white differentiation is more conspicuous, suggesting this may be an older infarct. 2. No acute hemorrhage. Report of these findings was called to Dr. Novak in the emergency department at the time of dictation. Assessment and Plan Advance Directives: Yes (full code) VTE prophylaxis?: Chemical Plan of care discussed with patient/family: Yes - Patient Problems (1) Acute encephalopathy Current Visit: Yes Status: Acute Plan to address problem: Multifactorial including cerebrovascular accident and uremia Patient needs emergent hemodialysis Patient has not an hemodialysis before (2) Acute CVA (cerebrovascular accident) Current Visit: Yes Status: Acute Plan to address problem: May have had cerebrovascular accident recently because her CAT scan shows subacute left MCA and SHOE CASER territories infarction Patient is lethargic Motor deficits could not be assessed May not be CVA The AMS maybe due to Uremia (3) Acute on chronic renal failure Current Visit: Yes Status: Acute Qualifiers: Acute renal failure type: with acute tubular necrosis Chronic kidney disease stage: stage 5, not on chronic dialysis Qualified Code(s): N17.0 - Acute kidney failure with tubular necrosis; N18.5 - Chronic kidney disease, stage 5 Plan to address problem: Patient will need emergent hemodialysis Patient may end up being on hemodialysis on a regular basis Nephrology consulted Vascular surgery consulted (4) Hyperkalemia Current Visit: Yes Status: Acute Plan to address problem: Calcium gluconate bicarbonate and Kayexalate given Emergent hemodialysis Recheck potassium level (5) Glaucoma Current Visit: Yes Status: Chronic Qualifiers: Glaucoma type: unspecified Laterality: bilateral Qualified Code(s): H40.9 - Unspecified glaucoma Plan to address problem: continue latanoprost eyedrops (6) Vitamin D deficiency Current Visit: Yes Status: Chronic Plan to address problem: Continue vitamin D (7) Hyperlipidemia Current Visit: Yes Status: Chronic Qualifiers: Hyperlipidemia type: mixed hyperlipidemia Qualified Code(s): E78.2 - Mixed hyperlipidemia Plan to address problem: Continue statins (8) Peripheral neuropathy Current Visit: Yes Status: Chronic Qualifiers: Peripheral neuropathy type: polyneuropathy, unspecified Qualified Code(s): G62.9 - Polyneuropathy, unspecified Plan to address problem: Continue gabapentin (9) Seizure disorder Current Visit: Yes Status: Chronic Plan to address problem: Continue Keppra (10) Hypertension Current Visit: Yes Status: Chronic Qualifiers: Hypertension type: essential hypertension Qualified Code(s): I10 - Essential (primary) hypertension Plan to address problem: Continue antihypertensives (11) DVT prophylaxis Current Visit: Yes Status: Acute Plan to address problem: Patient initiated on heparin and GI prophylaxis
[2018-10-17] MEDS ORDERED: NACL 0.9% 100 ML IV PRN (15:08)
[2018-10-17 16:33] LABS: Hepatitis B Surface Antigen Non-Reactive (Negative); Hepatitis C Virus Antibody Non-Reactive (NonReactive)
[2018-10-17] MEDS: APRESOLINE PO SCH ×2 (18:39→21:48)
[2018-10-17] MEDS: LATANOPROST 0.005% OU SCH (18:40)
[2018-10-17] MEDS: PLAVIX PO SCH (18:40)
[2018-10-17] MEDS: SODIUM BICARBONATE PO SCH (18:40)
[2018-10-17] MEDS ORDERED: APRESOLINE IV PRN (21:21)
[2018-10-17] MEDS: HumaLOG SUB-Q SCH (21:46)
[2018-10-17] MEDS: PRAVACHOL PO SCH (21:47)
[2018-10-17] MEDS: NEURONTIN PO SCH (21:47)
[2018-10-17] MEDS: COLACE PO SCH (21:48)
[2018-10-17] MEDS ORDERED: KEPPRA PO SCH (22:00)
[2018-10-17] MEDS ORDERED: PEPCID PO SCH (22:00)
[2018-10-17] MEDS ORDERED: NON-FORMULARY (Simvastatin 20 MG) PO SCH (22:00)
--- NOTE | 2018-10-17 22:06 | Ultrasound Report ---
ULTRASOUND RENAL INDICATION: renal failure. COMPARISON: No relevant prior imaging study available. FINDINGS: RIGHT KIDNEY: Size: 9.4 cm. Echogenicity: Moderate increased echotexture. Cortical thickness: Normal. Hydronephrosis: None. Cyst or mass: None. Stones: None. LEFT KIDNEY: Size: 9.2 cm. Echogenicity: Moderately echogenic. Cortical thickness: Normal. Hydronephrosis: None. Cyst or mass: None. Stones: None. Urinary Bladder: No significant abnormality. Free Fluid: None. Additional Findings: None. IMPRESSION 1. Echogenic kidneys characteristic for medical renal disease. No hydronephrosis.. Signer Name: Gabriele Olmstead MD Signed: 10/17/2018 10:01 PM Workstation Name: [id number]
[2018-10-17] MEDS: HEPARIN SUB-Q SCH (22:17)
[2018-10-17] MEDS: KEPPRA 500 MG in D5W 100 ML IV SCH (22:17)
--- NOTE | 2018-10-17 22:36 | Event Note ---
Date: 10/17/18 Patient remains lethargic and unable to swallow by mouth meds at this time changed by mouth Keppra and pepcid to IV. Added IV hydralazine when necessary to help optimize BP. Swallow screen ordered for one patient's mentation improved also she will need to be restarted on by mouth Keppra and Pepcid .
[2018-10-17 23:27] LABS: Creatinine,Urine 271.1 mg/dL (0.1-20.0)
[2018-10-17 23:32] LABS: Protein/Creatinine Ratio,Urine 0.69
[2018-10-18] MEDS: APRESOLINE PO SCH ×3 (05:27→22:22)
[2018-10-18] MEDS: HumaLOG SUB-Q SCH ×4 (08:14→22:31)
[2018-10-18] MEDS: COLACE PO SCH ×2 (09:44→22:23)
[2018-10-18] MEDS: SODIUM BICARBONATE PO SCH (09:44)
[2018-10-18] MEDS: PLAVIX PO SCH (09:44)
[2018-10-18] MEDS: PEPCID IV SCH (09:45)
[2018-10-18 09:47] LABS: Basophils % (Auto) 0.2 % (0.0-1.8); Eosinophils % (Auto) 0.4 % (0.0-4.3); Hematocrit 30.7 % (30.3-42.9); Hemoglobin 10.2 gm/dl (10.1-14.3); Lymphocytes # (Auto) 1.1 K/mm3 (1.2-5.4); Lymphocytes % (Auto) 13.2 % (13.4-35.0); Mean Corpuscular HGB Conc 33 % (30-34); Mean Corpuscular Volume 93 fl (79-97); Monocytes # (Auto) 0.4 K/mm3 (0.0-0.8); Monocytes % (Auto) 5.5 % (0.0-7.3); Platelet Count 125 K/mm3 (140-440); Red Blood Count 3.28 M/mm3 (3.65-5.03); Red Cell Distribution Width 14.8 % (13.2-15.2)
[2018-10-18 09:59] LABS: Calcium 8.8 mg/dL (8.4-10.2)
--- NOTE | 2018-10-18 10:54 | Consultation ---
History of Present Illness Consult date: 10/17/18 Reason for Consult: AMS Chief complaint: AMS unresponsiveness History of present illness: 63 yo female brought in by sister via EMS after not responding today- concern for left more than right sided weakness- was last known to be normal Friday when she went with her caregiver- not uncommon for her to sleep x 24 hours essentially after social stimulation or changing locations; but just not waking up; has h/o dementia, HTN, CRI, possibly left arm more weak than right? per sister but unclear; She was possibly on seizure medication in the past but hasn't seen a doctor nor taken medications in at least a year. Past History Past Medical History: other (CKD, HTn and DM) Medications and Allergies Allergies Allergy/AdvReac Type Severity Reaction Status Date / Time NSAIDS (Non-Steroidal AdvReac Unknown Verified 01/02/17 05:56 Anti-Inflamma Tetracyclines AdvReac Unknown Verified 09/26/14 12:09 Home Medications Medication Instructions Recorded Confirmed Last Taken Type Ergocalciferol [Vitamin D2] 50,000 unit PO QWEEK capsule 09/25/16 10/17/18 Unknown Rx Latanoprost 0.005% 1 drop OP QPM 01/02/17 10/17/18 Unknown History Sodium Bicarbonate 325 mg PO DAILY 01/02/17 10/17/18 Unknown History Clopidogrel [Plavix] 75 mg PO DAILY #30 tablet 01/08/17 10/17/18 Unknown Rx Docusate Sodium [Colace CAP] 100 mg PO BID #60 capsule 01/08/17 10/17/18 Unknown Rx Famotidine [Pepcid] 10 mg PO BID #60 tablet 01/08/17 10/17/18 Unknown Rx Gabapentin [Neurontin] 300 mg PO QHS #30 capsule 01/08/17 10/17/18 Unknown Rx Simvastatin [Zocor TAB] 20 mg PO QHS #60 tablet 01/08/17 10/17/18 Unknown Rx glipiZIDE [Glucotrol] 5 mg PO QDDIAB #60 tablet 01/08/17 10/17/18 Unknown Rx hydrALAZINE [Apresoline TAB] 10 mg PO Q8HR #90 tablet 01/08/17 10/17/18 Unknown Rx levETIRAcetam [Keppra TAB] 500 mg PO BID #60 tablet 01/08/17 10/17/18 Unknown Rx Active Meds: Active Medications Clopidogrel Bisulfate (Plavix) 75 mg PO DAILY [facility] Last Admin: 10/18/18 09:44 Dose: Not Given Documented by: Docusate Sodium (Colace) 100 mg PO BID [facility] Last Admin: 10/18/18 09:44 Dose: Not Given Documented by: Ergocalciferol (Vitamin D2) 50,000 unit PO Sa [facility] Famotidine (Pepcid) 20 mg IV QDAY [facility] Last Admin: 10/18/18 09:45 Dose: 20 mg Documented by: Gabapentin (Neurontin) 300 mg PO QHS [facility] Last Admin: 10/17/18 21:47 Dose: Not Given Documented by: Heparin Sodium (Porcine) (Heparin) 5,000 unit SUB-Q Q12HR [facility] Last Admin: 10/17/18 22:17 Dose: 5,000 unit Documented by: Hydralazine HCl (Apresoline) 10 mg PO Q8HR [facility] Last Admin: 10/18/18 05:27 Dose: Not Given Documented by: Hydralazine HCl (Apresoline) 10 mg IV Q4HR PRN PRN Reason: Blood Pressure Sodium Chloride (Nacl 0.9%) 100 mls @ 999 mls/hr IV LESLIE PRN PRN Reason: Hypotension Levetiracetam 500 mg/ Dextrose 105 mls @ 400 mls/hr IV Q12HR [facility] Last Admin: 10/17/18 22:17 Dose: 400 mls/hr Documented by: Insulin Human Lispro (Humalog) 0 unit SUB-Q ACHS [facility]; Protocol Last Admin: 10/18/18 08:14 Dose: Not Given Documented by: Latanoprost (Latanoprost 0.005%) 1 drops OU QPM [facility] Last Admin: 10/17/18 18:40 Dose: Not Given Documented by: Pravastatin Sodium (Pravachol) 40 mg PO QHS [facility] Last Admin: 10/17/18 21:47 Dose: Not Given Documented by: Sodium Bicarbonate (Sodium Bicarbonate) 325 mg PO DAILY [facility] Last Admin: 10/18/18 09:44 Dose: Not Given Documented by: Physical Examination - Vital Signs Vital Signs: Vital Signs Temp Pulse Resp BP Pulse Ox 97.7 F 57 L 16 128/78 87 10/17/18 10:10 10/17/18 10:10 10/17/18 10:10 10/17/18 10:10 10/17/18 10:10 - Level of Consciousness 1a. Level of Consciousness: resp stimuli/obtunded - LOC Questions 1b. LOC Questions: answers no questions correctly - LOC Command 1c. LOC Commands: performs no tasks correctly - Best Gaze 2. Best Gaze: normal - Visual 3. Visual: no visual loss - Facial Palsy 4. Facial Palsy: minor paralysis - Motor Arm 5a. Motor Arm Left: no movement 5b. Motor Arm Right: some gravity effort - Motor Leg 6a. Motor Leg Left: no gravity effort 6b. Motor Leg Right: no gravity effort - Limb Ataxia 7. Limb Ataxia: absent - Sensory 8. Sensory: coma/unresponsive - Best Language 9. Best Language: coma/unresponsive - Dysarthria 10. Dysarthria: mute/anarrthric - Extinction and Inattention 11. Extinction/Inattention: no abnormality - Scoring Total Score: 26 Stroke Severity: Severe Stroke Results - Laboratory Findings CBC and BMP: 10/18/18 09:09 10/18/18 09:09 Abnormal Lab Findings: Abnormal Labs 10/17/18 10/17/18 10/17/18 10:16 10:19 10:19 RBC Plt Count Lymph % (Auto) 9.5 L Lymph # 1.0 L Seg Neutrophils % 84.7 H Seg Neutrophils # 8.7 H PT 20.6 H INR 1.81 H Potassium Chloride Carbon Dioxide BUN Creatinine Glucose POC Glucose 277 H Total Creatine Kinase Troponin T HDL Cholesterol Urine Creatinine Urine Total Protein Salicylates Acetaminophen 10/17/18 10/17/18 10/17/18 13:14 13:16 13:34 RBC Plt Count Lymph % (Auto) Lymph # Seg Neutrophils % Seg Neutrophils # PT INR Potassium Chloride Carbon Dioxide BUN Creatinine Glucose POC Glucose 330 H Total Creatine Kinase Troponin T HDL Cholesterol Urine Creatinine 276.0 H 271.1 H Urine Total Protein 191 H Salicylates Acetaminophen 10/17/18 10/17/18 10/17/18 15:15 21:03 Unknown RBC Plt Count Lymph % (Auto) Lymph # Seg Neutrophils % Seg Neutrophils # PT INR Potassium 6.6 H* Chloride Carbon Dioxide 10 L BUN 111 H Creatinine 6.5 H Glucose 351 H POC Glucose 143 H Total Creatine Kinase 3216 H Troponin T 4.720 H* HDL Cholesterol 88 H Urine Creatinine Urine Total Protein Salicylates Acetaminophen 10/17/18 10/17/18 10/18/18 Unknown Unknown 09:09 RBC 3.28 L Plt Count 125 L Lymph % (Auto) 13.2 L Lymph # 1.1 L Seg Neutrophils % 80.7 H Seg Neutrophils # PT INR Potassium Chloride Carbon Dioxide BUN Creatinine Glucose POC Glucose Total Creatine Kinase Troponin T HDL Cholesterol Urine Creatinine Urine Total Protein Salicylates < 0.3 L Acetaminophen < 5.0 L 10/18/18 09:09 RBC Plt Count Lymph % (Auto) Lymph # Seg Neutrophils % Seg Neutrophils # PT INR Potassium Chloride 97.9 L Carbon Dioxide 20 L D BUN 38 H Creatinine 3.2 H D Glucose 207 H POC Glucose Total Creatine Kinase Troponin T HDL Cholesterol Urine Creatinine Urine Total Protein Salicylates Acetaminophen Assessment and Plan [facility] STROKE ALERT Consultation 1. r/o stroke 2. r/o severe encephalopathy from other causes 3. r/o status epilepticus - no tpa due to LKN time many days ago - not an LVO due to time period - MRI when able - d/w ED doctor in detail- consider stat EEG and keppra at renal dosing Cheri Hughes MD date of service 10/17/18 LKN Friday door: [phone] to called [phone] ts connected [phone] NIHSS [id number]
--- NOTE | 2018-10-18 12:55 | Progress Note ---
Assessment and Plan acute renal failure on chronic kidney disease stage III/IV AG metabolic acidosis Hyperkalemia metabolic encephalopathy CVA - s/p STAT HD yesterday, no indication for today - will assess needs daily for dialysis needs dialy and monitor signs of renal recovery - urine eos -ve - renal US negative for obstruction - renal US ordered - renally dose meds - strict I&O - daily weight Benji Shore MD [phone] Subjective Date of service: 10/18/18 Principal diagnosis: TUNDE Interval history: lethargic, no family at bedside Objective - Vital Signs Vital signs: Vital Signs - 12hr 10/18/18 10/18/18 10/18/18 04:35 07:34 10:00 Temperature 98.1 F 97.5 F L Pulse Rate 73 75 Respiratory 18 18 Rate Blood Pressure 114/84 116/84 O2 Sat by Pulse 44 L Oximetry - General Appearance General appearance: well-developed, cachectic EENT: ATNC, PERRL, mucous membranes dry Neck: no JVD Respiratory: Present: Clear to Ascultation Cardiology: regular, S1S2 Gastrointestinal: normoactive bowel sounds, no tenderness, no distended Integumentary: no rash, warm and dry Neurologic: other (does not follow commands) Musculoskeletal: other (no edema in BLE) Psychiatric: other (does not answer questions) - Lab 10/18/18 09:09 10/18/18 09:09 Most recent lab results Calcium 8.8 mg/dL (8.4-10.2) 10/18/18 09:09 Phosphorus 4.20 mg/dL (2.5-4.5) 10/18/18 09:09 271.1 mg/dL (0.1-20.0) H 10/17/18 13:34 12 mmol/L 10/17/18 13:34 191 mg/dL (5-11.8) H 10/17/18 13:16 Medications & Allergies - Medications Allergies/Adverse Reactions: Allergies NSAIDS (Non-Steroidal Anti-Inflamma Adverse Reaction (Verified 01/02/17 05:56) Unknown Tetracyclines Adverse Reaction (Verified 09/26/14 12:09) Unknown Home Medications: Home Medications Medication Instructions Recorded Confirmed Last Taken Type Ergocalciferol [Vitamin D2] 50,000 unit PO QWEEK capsule 09/25/16 10/17/18 Unknown Rx Latanoprost 0.005% 1 drop OP QPM 01/02/17 10/17/18 Unknown History Sodium Bicarbonate 325 mg PO DAILY 01/02/17 10/17/18 Unknown History Clopidogrel [Plavix] 75 mg PO DAILY #30 tablet 01/08/17 10/17/18 Unknown Rx Docusate Sodium [Colace CAP] 100 mg PO BID #60 capsule 01/08/17 10/17/18 Unknown Rx Famotidine [Pepcid] 10 mg PO BID #60 tablet 01/08/17 10/17/18 Unknown Rx Gabapentin [Neurontin] 300 mg PO QHS #30 capsule 01/08/17 10/17/18 Unknown Rx Simvastatin [Zocor TAB] 20 mg PO QHS #60 tablet 01/08/17 10/17/18 Unknown Rx glipiZIDE [Glucotrol] 5 mg PO QDDIAB #60 tablet 01/08/17 10/17/18 Unknown Rx hydrALAZINE [Apresoline TAB] 10 mg PO Q8HR #90 tablet 01/08/17 10/17/18 Unknown Rx levETIRAcetam [Keppra TAB] 500 mg PO BID #60 tablet 01/08/17 10/17/18 Unknown Rx Active Medications: Generic Name Dose Route Start Last Admin Trade Name Shiloq PRN Reason Stop Dose Admin Clopidogrel Bisulfate 75 mg 10/17/18 17:00 10/18/18 09:44 Plavix PO Not Given DAILY [facility] Docusate Sodium 100 mg 10/17/18 22:00 10/18/18 09:44 Colace PO Not Given BID [facility] Ergocalciferol 50,000 unit 10/24/18 10:00 Vitamin D2 PO Sa [facility] Famotidine 20 mg 10/18/18 10:00 10/18/18 09:45 Pepcid IV 20 mg QDAY [facility] Administration Gabapentin 300 mg 10/17/18 22:00 10/17/18 21:47 Neurontin PO Not Given QHS [facility] Heparin Sodium (Porcine) 5,000 unit 10/17/18 22:00 10/17/18 22:17 Heparin SUB-Q 5,000 unit Q12HR [facility] Administration Hydralazine HCl 10 mg 10/17/18 17:00 10/18/18 05:27 Apresoline PO Not Given Q8HR [facility] Hydralazine HCl 10 mg 10/17/18 21:21 Apresoline IV Q4HR PRN Blood Pressure Sodium Chloride 100 mls @ 999 mls/hr 10/17/18 15:08 Nacl 0.9% IV LESLIE PRN Hypotension Levetiracetam 500 mg/ Dextrose 105 mls @ 400 mls/hr 10/17/18 22:00 10/17/18 22:17 IV 400 mls/hr Q12HR [facility] Administration Insulin Human Lispro 0 unit 10/17/18 22:00 10/18/18 08:14 Humalog SUB-Q Not Given ACHS [facility] Protocol Latanoprost 1 drops 10/17/18 18:00 10/17/18 18:40 Latanoprost 0.005% OU Not Given QPM [facility] Pravastatin Sodium 40 mg 10/17/18 22:00 10/17/18 21:47 Pravachol PO Not Given QHS [facility] Sodium Bicarbonate 325 mg 10/17/18 17:00 10/18/18 09:44 Sodium Bicarbonate PO Not Given DAILY [facility]
[2018-10-18] MEDS: HEPARIN SUB-Q SCH ×2 (13:09→22:23)
[2018-10-18] MEDS: KEPPRA 500 MG in D5W 100 ML IV SCH ×2 (15:09→22:32)
--- NOTE | 2018-10-18 15:19 | Progress Note ---
Assessment and Plan Assessment and plan: Patient is a 63 yo woman with hypertension, dm type 2, gerd, cva, dementia, cad s/p cabg, seizure disorder, OA and CKD 4 (last Cr here was 2.2 on 01/08/2017) who presented to [facility] ED with AMS x 3 days. She was admitted for severe renal failure/uremic encephalopathy with hyperkalemia. Creatinine was found to be 5.6. She underwent emergent Hemodialysis * CT head without contrast IMPRESSION: 1. 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 Although there is no volume loss associated with [employer] METER OPERATOR infarct, the hypoattenuation of the parenchyma and loss of laboy-white differentiation is more conspicuous, suggesting this may be an older infarct. 2. No acute hemorrhage. Report of these findings was called to Dr. Novak in the emergency department at the time of dictation. Acute metabolic encephalopathy, poa:work up in process ARF/CKD 4 vasomotor +ATN: hemodialysis started Hyperkalemia: treat with HD, [employer] following Acute CVA suspected: MRI pending Glaucoma: continue latanoprost eyedrops Vitamin D deficiency: Continue vitamin D Hyperlipidemia: Continue statins Peripheral neuropathy: Continue gabapentin Seizure disorder: Continue Keppra Hypertension: Continue antihypertensives DVT prophylaxis: heparin and GI prophylaxis History Interval history: Patient was seen and examined. Follow-up on current diagnosis. No overnight events reported to me. Patient denies any chest pain, shortness breath, nausea/vomiting or severe headaches. Imaging, nursing note, chart, labs and old chart reviewed. Discussed with patient. Hospitalist Physical - Physical exam Narrative exam: Gen: ill appearing, chronically disable appearing, lethargic but arousable HEENT: NCAT, EOMI, PERRL, OP Clear Neck: supple, no adenopathy, no thyromegaly, no JVD CVS/Heart: RRR, normal S1S2, pulses present bilaterally Chest/Lungs: CTA B, Symmetrical chest expansion, good air entry bilaterally GI/Abdomen: soft, NTND, good bowel sounds, no guarding or rebound /Bladder: no suprapubic tenderness, no CVA or paraspinal tenderness Extermity/Skin: diffuse hyperpigmented coin lichenification lesion MSK: not following commands Neuro: not following commands Psych: lethargic - Constitutional Vitals: Temp Pulse Resp BP Pulse Ox 97.5 F L 75 18 116/84 44 L 10/18/18 07:34 10/18/18 10:00 10/18/18 07:34 10/18/18 07:34 10/18/18 04:35 General appearance: Present: no acute distress, well-nourished Results - Labs CBC & Chem 7: 10/18/18 09:09 10/18/18 09:09 Labs: Laboratory Last Values WBC 8.1 K/mm3 (4.5-11.0) 10/18/18 09:09 RBC 3.28 M/mm3 (3.65-5.03) L 10/18/18 09:09 Hgb 10.2 gm/dl (10.1-14.3) 10/18/18 09:09 Hct 30.7 % (30.3-42.9) 10/18/18 09:09 MCV 93 fl (79-97) 10/18/18 09:09 MCH 31 pg (28-32) 10/18/18 09:09 MCHC 33 % (30-34) 10/18/18 09:09 RDW 14.8 % (13.2-15.2) 10/18/18 09:09 Plt Count 125 K/mm3 (140-440) L 10/18/18 09:09 Lymph % (Auto) 13.2 % (13.4-35.0) L 10/18/18 09:09 [place] % (Auto) 5.5 % (0.0-7.3) 10/18/18 09:09 Eos % (Auto) 0.4 % (0.0-4.3) 10/18/18 09:09 Baso % (Auto) 0.2 % (0.0-1.8) 10/18/18 09:09 Lymph # 1.1 K/mm3 (1.2-5.4) L 10/18/18 09:09 [place] # 0.4 K/mm3 (0.0-0.8) 10/18/18 09:09 Eos # 0.0 K/mm3 (0.0-0.4) 10/18/18 09:09 Baso # 0.0 K/mm3 (0.0-0.1) 10/18/18 09:09 Seg Neutrophils % 80.7 % (40.0-70.0) H 10/18/18 09:09 Seg Neutrophils # 6.6 K/mm3 (1.8-7.7) 10/18/18 09:09 PT 20.6 Sec. (12.2-14.9) H 10/17/18 10:19 INR 1.81 (0.87-1.13) H 10/17/18 10:19 APTT 35.6 Sec. (24.2-36.6) 10/17/18 10:19 18.7 Sec. (15.1-19.6) 10/17/18 10:19 Sodium 138 mmol/L (137-145) 10/18/18 09:09 Potassium 4.4 mmol/L (3.6-5.0) D 10/18/18 09:09 Chloride 97.9 mmol/L (98-107) L 10/18/18 09:09 Carbon Dioxide 20 mmol/L (22-30) L D 10/18/18 09:09 25 mmol/L 10/18/18 09:09 BUN 38 mg/dL (7-17) H 10/18/18 09:09 3.2 mg/dL (0.7-1.2) H D 10/18/18 09:09 Estimated GFR 18 ml/min 10/18/18 09:09 12 % 10/18/18 09:09 Glucose 207 mg/dL (65-100) H 10/18/18 09:09 POC Glucose 180 (70-105) H 10/18/18 12:21 Calcium 8.8 mg/dL (8.4-10.2) 10/18/18 09:09 Phosphorus 4.20 mg/dL (2.5-4.5) 10/18/18 09:09 44.0 umol/L (25-60) 10/17/18 15:43 3216 units/L (30-135) H 10/17/18 15:15 4.720 ng/mL (0.00-0.029) H* 10/17/18 Unknown Triglycerides 102 mg/dL (2-149) 10/17/18 Unknown Cholesterol 198 mg/dL (50-199) 10/17/18 Unknown 116 mg/dL (50-130) 10/17/18 Unknown 88 mg/dL (40-59) H 10/17/18 Unknown 2.25 % 10/17/18 Unknown TSH 1.030 mlU/mL (0.270-4.200) 10/17/18 Unknown Free T4 1.26 ng/dL (0.76-1.46) 10/17/18 Unknown Yellow (Yellow) 10/17/18 11:25 Slightly-cloudy (Clear) 10/17/18 11:25 5.0 (5.0-7.0) 10/17/18 11:25 Ur Specific [place] 1.019 (1.003-1.030) 10/17/18 11:25 100 mg/dl mg/dL (Negative) 10/17/18 11:25 150 mg/dL (Negative) 10/17/18 11:25 Tr mg/dL (Negative) 10/17/18 11:25 Sm (Negative) 10/17/18 11:25 Neg (Negative) 10/17/18 11:25 Neg (Negative) 10/17/18 11:25 < 2.0 mg/dL (<2.0) 10/17/18 11:25 Ur Leukocyte Esterase Tr (Negative) 10/17/18 11:25 3.0 /HPF (0.0-6.0) 10/17/18 11:25 2.0 /HPF (0.0-6.0) 10/17/18 11:25 Few /HPF 10/17/18 11:25 None seen (None Seen) 10/17/18 13:16 271.1 mg/dL (0.1-20.0) H 10/17/18 13:34 Protein/Creatinin Ratio 0.69 10/17/18 13:16 12 mmol/L 10/17/18 13:34 191 mg/dL (5-11.8) H 10/17/18 13:16 Salicylates < 0.3 mg/dL (2.8-20.0) L 10/17/18 Unknown Acetaminophen < 5.0 ug/mL (10.0-30.0) L 10/17/18 Unknown Plasma/Serum Alcohol < 0.01 % (0-0.07) 10/17/18 Unknown Hepatitis A IgM Ab Non-reactive (NonReactive) 10/17/18 15:15 Hep Bs Antigen Non-reactive (Negative) 10/17/18 15:15 Hep B Core IgM Ab Non-reactive (NonReactive) 10/17/18 15:15 Non-reactive (NonReactive) 10/17/18 15:15 Rare 10/17/18 15:43 Active Medications - Current Medications Current Medications: Generic Name Dose Route Start Last Admin Trade Name Freq PRN Reason Stop Dose Admin Clopidogrel Bisulfate 75 mg 10/17/18 17:00 10/18/18 09:44 Plavix PO Not Given DAILY [facility] Docusate Sodium 100 mg 10/17/18 22:00 10/18/18 09:44 Colace PO Not Given BID [facility] Ergocalciferol 50,000 unit 10/24/18 10:00 Vitamin D2 PO Sa [facility] Famotidine 20 mg 10/18/18 10:00 10/18/18 09:45 Pepcid IV 20 mg QDAY [facility] Administration Gabapentin 300 mg 10/17/18 22:00 10/17/18 21:47 Neurontin PO Not Given QHS [facility] Heparin Sodium (Porcine) 5,000 unit 10/17/18 22:00 10/18/18 13:09 Heparin SUB-Q Not Given Q12HR [facility] Hydralazine HCl 10 mg 10/17/18 17:00 10/18/18 15:09 Apresoline PO Not Given Q8HR [facility] Hydralazine HCl 10 mg 10/17/18 21:21 Apresoline IV Q4HR PRN Blood Pressure Sodium Chloride 100 mls @ 999 mls/hr 10/17/18 15:08 Nacl 0.9% IV LESLIE PRN Hypotension Levetiracetam 500 mg/ Dextrose 105 mls @ 400 mls/hr 10/17/18 22:00 10/18/18 15:09 IV 400 mls/hr Q12HR [facility] Administration Insulin Human Lispro 0 unit 10/17/18 22:00 10/18/18 13:09 Humalog SUB-Q Not Given ACHS [facility] Protocol Latanoprost 1 drops 10/17/18 18:00 10/17/18 18:40 Latanoprost 0.005% OU Not Given QPM [facility] Pravastatin Sodium 40 mg 10/17/18 22:00 10/17/18 21:47 Pravachol PO Not Given QHS [facility] Sodium Bicarbonate 325 mg 10/17/18 17:00 10/18/18 09:44 Sodium Bicarbonate PO Not Given DAILY [facility] Nutrition/Malnutrition Assess - Dietary Evaluation Nutrition/Malnutrition Findings: Nutrition Notes Start: 10/18/18 14:28 Freq: Status: Active Protocol: Document 10/18/18 14:28 RM (Rec: 10/18/18 14:36 RM [id number]) Nutrition Notes Need for Assessment generated from: MD Order Initial or Follow up Assessment Current Diagnosis Acute Kidney Injury,CKD(stage I-IV),Coronary Artery Disease, Diabetes,Hypertension,Stroke, Hyperlipidemia Other Pertinent Diagnosis Hx CVA, Acute encephalopathy Current Diet NPO Labs/Tests K 6.6 (10/17/18) Pertinent Medications Reviewed Height 5 ft 2 in Weight 68.039 kg [place] Body Weight (kg) 50.00 BMI 27.4 Subjective/Other Information Consulted for ONS diet. Screened for difficulty chewing. Swallow evaluation ordered. Pt asleep at time of visit. No temporal or orbital wasting . Percent of energy/protein needs met: 0%/0% Burn Absent Trauma Absent #1 Nutrition Diagnosis Inadequate oral intake Etiology CVA As Evidenced by Signs and Symptoms NPO status Is patient on ventilator? No Is Patient Ambulatory and/or Out of Bed No REE-([facility]-confined to bed) 1431.600 Calculation Used for Recommendations [facility] Additional Notes Protein Needs: 54-68g (0.8-1g/ kg) Fluid Needs: 1 ml/kcal Nutrition Intervention Change Diet Order: Per ST Add Supplement/Snack (indicate name/kcal [place] 1 daily once diet /protein ) advanced Provides kCal: 425 Provides Protein (gm) 19 Goal #[address] recommendation Anticipated Discharge Needs: Unable to determine at this time Follow-Up By: 10/21/18 Additional Comments Follow for PO and ONS intakes
--- NOTE | 2018-10-18 15:43 | Progress Note ---
Subjective Date of service: 10/18/18 Principal diagnosis: TUNDE Interval history: spoke to the family and went over the hx the ....dementia... but now new onset of left sided weakness may have had seizure will assess with EEG plan further w/u spoke to family as the incident was not witnessed as she was in personal skilled nursing Thanks see orders Objective - Vital Sign Vital Signs - 12hr 10/18/18 10/18/18 10/18/18 04:35 07:34 10:00 Temperature 98.1 F 97.5 F L Pulse Rate 73 75 Respiratory 18 18 Rate Blood Pressure 114/84 116/84 Blood Pressure [Left] O2 Sat by Pulse 44 L Oximetry 10/18/18 12:05 Temperature 97.1 F L Pulse Rate 75 Respiratory 18 Rate Blood Pressure Blood Pressure 149/76 [Left] O2 Sat by Pulse 98 Oximetry - Laboratory Findings CBC and BMP: 10/18/18 09:09 10/18/18 09:09 Abnormal Lab Findings: Abnormal Labs 10/17/18 10/17/18 10/17/18 10:16 10:19 10:19 RBC Plt Count Lymph % (Auto) 9.5 L Lymph # 1.0 L Seg Neutrophils % 84.7 H Seg Neutrophils # 8.7 H PT 20.6 H INR 1.81 H Potassium Chloride Carbon Dioxide BUN Creatinine Glucose POC Glucose 277 H Total Creatine Kinase Troponin T HDL Cholesterol Urine Creatinine Urine Total Protein Salicylates Acetaminophen 10/17/18 10/17/18 10/17/18 13:14 13:16 13:34 RBC Plt Count Lymph % (Auto) Lymph # Seg Neutrophils % Seg Neutrophils # PT INR Potassium Chloride Carbon Dioxide BUN Creatinine Glucose POC Glucose 330 H Total Creatine Kinase Troponin T HDL Cholesterol Urine Creatinine 276.0 H 271.1 H Urine Total Protein 191 H Salicylates Acetaminophen 10/17/18 10/17/18 10/17/18 15:15 21:03 Unknown RBC Plt Count Lymph % (Auto) Lymph # Seg Neutrophils % Seg Neutrophils # PT INR Potassium 6.6 H* Chloride Carbon Dioxide 10 L BUN 111 H Creatinine 6.5 H Glucose 351 H POC Glucose 143 H Total Creatine Kinase 3216 H Troponin T 4.720 H* HDL Cholesterol 88 H Urine Creatinine Urine Total Protein Salicylates Acetaminophen 10/17/18 10/17/18 10/18/18 Unknown Unknown 07:29 RBC Plt Count Lymph % (Auto) Lymph # Seg Neutrophils % Seg Neutrophils # PT INR Potassium Chloride Carbon Dioxide BUN Creatinine Glucose POC Glucose 120 H Total Creatine Kinase Troponin T HDL Cholesterol Urine Creatinine Urine Total Protein Salicylates < 0.3 L Acetaminophen < 5.0 L 10/18/18 10/18/18 10/18/18 09:09 09:09 12:21 RBC 3.28 L Plt Count 125 L Lymph % (Auto) 13.2 L Lymph # 1.1 L Seg Neutrophils % 80.7 H Seg Neutrophils # PT INR Potassium Chloride 97.9 L Carbon Dioxide 20 L D BUN 38 H Creatinine 3.2 H D Glucose 207 H POC Glucose 180 H Total Creatine Kinase Troponin T HDL Cholesterol Urine Creatinine Urine Total Protein Salicylates Acetaminophen
[2018-10-18] MEDS: LATANOPROST 0.005% OU SCH (18:27)
[2018-10-18] MEDS: NEURONTIN PO SCH (22:23)
[2018-10-18] MEDS: PRAVACHOL PO SCH (22:24)
[2018-10-19 05:55] LABS: Hematocrit 33.9 % (30.3-42.9); Hemoglobin 10.7 gm/dl (10.1-14.3); Mean Corpuscular HGB Conc 32 % (30-34); Mean Corpuscular Volume 98 fl (79-97); Red Blood Count 3.46 M/mm3 (3.65-5.03); Red Cell Distribution Width 16.4 % (13.2-15.2)
[2018-10-19 05:58] LABS: Calcium 8.6 mg/dL (8.4-10.2)
[2018-10-19] MEDS: APRESOLINE PO SCH ×3 (06:42→23:11)
[2018-10-19 07:17] LABS: Anisocytosis 1+; Basophils % (Manual) 0 % (0.0-1.8); Platelet Estimate Consistent w Auto; Total Cells Counted 100
[2018-10-19 07:18] LABS: Platelet Count 55 K/mm3 (140-440)
--- NOTE | 2018-10-19 08:50 | Progress Note ---
Assessment and Plan acute renal failure on chronic kidney disease stage III/IV AG metabolic acidosis Hyperkalemia metabolic encephalopathy CVA - Cr and BUN rising, oliguric - HD today for clearance and gentle UF - Cr clearanec ordered post HD - will assess needs daily for dialysis needs daily and monitor signs of renal recovery - urine eos -ve - renal US negative for obstruction - renally dose meds - strict I&O - daily weight Benji Shore MD [phone] Subjective Date of service: 10/19/18 Principal diagnosis: TUNDE Interval history: lethargic, no family at bedside Objective - Vital Signs Vital signs: Vital Signs - 12hr 10/18/18 10/18/18 10/19/18 22:22 23:49 04:37 Temperature 98.0 F 98.0 F Pulse Rate 65 56 L Respiratory 18 18 Rate Blood Pressure 90/56 101/71 99/65 O2 Sat by Pulse 81 L 60 L Oximetry 10/19/18 06:42 Temperature Pulse Rate Respiratory Rate Blood Pressure 99/65 O2 Sat by Pulse Oximetry - General Appearance General appearance: appears stated age, cachectic EENT: ATNC, PERRL, mucous membranes dry Neck: no JVD Respiratory: Present: Decreased Breath Sounds Cardiology: regular, S1S2 Gastrointestinal: normoactive bowel sounds, no tenderness, no distended Integumentary: no rash, warm and dry Neurologic: other (lethargic) Musculoskeletal: other (no edema in BLE) Psychiatric: other (does not answer questions) - Lab 10/19/18 05:20 10/19/18 05:20 Most recent lab results Calcium 8.6 mg/dL (8.4-10.2) 10/19/18 05:20 Phosphorus 3.80 mg/dL (2.5-4.5) 10/19/18 05:20 271.1 mg/dL (0.1-20.0) H 10/17/18 13:34 12 mmol/L 10/17/18 13:34 191 mg/dL (5-11.8) H 10/17/18 13:16 Medications & Allergies - Medications Allergies/Adverse Reactions: Allergies NSAIDS (Non-Steroidal Anti-Inflamma Adverse Reaction (Verified 01/02/17 05:56) Unknown Tetracyclines Adverse Reaction (Verified 09/26/14 12:09) Unknown Home Medications: Home Medications Medication Instructions Recorded Confirmed Last Taken Type Ergocalciferol [Vitamin D2] 50,000 unit PO QWEEK capsule 09/25/16 10/17/18 Unknown Rx Latanoprost 0.005% 1 drop OP QPM 01/02/17 10/17/18 Unknown History Sodium Bicarbonate 325 mg PO DAILY 01/02/17 10/17/18 Unknown History Clopidogrel [Plavix] 75 mg PO DAILY #30 tablet 01/08/17 10/17/18 Unknown Rx Docusate Sodium [Colace CAP] 100 mg PO BID #60 capsule 01/08/17 10/17/18 Unknown Rx Famotidine [Pepcid] 10 mg PO BID #60 tablet 01/08/17 10/17/18 Unknown Rx Gabapentin [Neurontin] 300 mg PO QHS #30 capsule 01/08/17 10/17/18 Unknown Rx Simvastatin [Zocor TAB] 20 mg PO QHS #60 tablet 01/08/17 10/17/18 Unknown Rx glipiZIDE [Glucotrol] 5 mg PO QDDIAB #60 tablet 01/08/17 10/17/18 Unknown Rx hydrALAZINE [Apresoline TAB] 10 mg PO Q8HR #90 tablet 01/08/17 10/17/18 Unknown Rx levETIRAcetam [Keppra TAB] 500 mg PO BID #60 tablet 01/08/17 10/17/18 Unknown Rx Active Medications: Generic Name Dose Route Start Last Admin Trade Name Erich PRN Reason Stop Dose Admin Clopidogrel Bisulfate 75 mg 10/17/18 17:00 10/18/18 09:44 Plavix PO Not Given DAILY ALLEY Docusate Sodium 100 mg 10/17/18 22:00 10/18/18 22:23 Colace PO 100 mg BID ALLEY Administration Ergocalciferol 50,000 unit 10/24/18 10:00 Vitamin D2 PO Sa ALLEY Famotidine 20 mg 10/18/18 10:00 10/18/18 09:45 Pepcid IV 20 mg QDAY ALLEY Administration Gabapentin 300 mg 10/17/18 22:00 10/18/18 22:23 Neurontin PO 300 mg QHS ALLEY Administration Hydralazine HCl 10 mg 10/17/18 17:00 10/19/18 06:42 Apresoline PO Not Given Q8HR ALLEY Hydralazine HCl 10 mg 10/17/18 21:21 Apresoline IV Q4HR PRN Blood Pressure Sodium Chloride 100 mls @ 999 mls/hr 10/17/18 15:08 Nacl 0.9% IV LESLIE PRN Hypotension Levetiracetam 500 mg/ Dextrose 105 mls @ 400 mls/hr 10/17/18 22:00 10/18/18 22:32 IV 400 mls/hr Q12HR ALLEY Administration Insulin Human Lispro 0 unit 10/17/18 22:00 10/18/18 22:31 Humalog SUB-Q 6 unit ACHS ALLEY Administration Protocol Latanoprost 1 drops 10/17/18 18:00 10/18/18 18:27 Latanoprost 0.005% OU 1 drops QPM ALLEY Administration Pravastatin Sodium 40 mg 10/17/18 22:00 10/18/18 22:24 Pravachol PO 40 mg QHS ALLEY Administration Sodium Bicarbonate 325 mg 10/17/18 17:00 10/18/18 09:44 Sodium Bicarbonate PO Not Given DAILY ALLEY
[2018-10-19 09:50] LABS: Iron 55 ug/dL (37-170); Total Iron Binding Capacity 193 mcg/dL (250-450)
--- NOTE | 2018-10-19 11:37 | Progress Note ---
Assessment and Plan Assessment and plan: Patient is a 63 yo woman with hypertension, dm type 2, gerd, cva, dementia, cad s/p cabg, seizure disorder, OA and CKD 4 (last Cr here was 2.2 on 01/08/2017) who presented to [facility] ED with AMS x 3 days. She was admitted for severe renal failure/uremic encephalopathy with hyperkalemia. Creatinine was found to be 5.6. She underwent emergent Hemodialysis * CT head without contrast IMPRESSION: 1. Recent infarcts in the left MCA and left [employer] territories. Although there is no volume loss associated with [employer] infarct, the hypoattenuation of the parenchyma and loss of laboy-white differentiation is more conspicuous, suggesting this may be an older infarct. 2. No acute hemorrhage. Report of these findings was called to Dr. Novak in the emergency department at the time of dictation. Acute metabolic encephalopathy, poa:work up in process ARF/CKD 4 vasomotor +ATN: hemodialysis started Hyperkalemia: treat with HD, [employer] following Acute CVA suspected: MRI pending Glaucoma: continue latanoprost eyedrops Vitamin D deficiency: Continue vitamin D Hyperlipidemia: Continue statins Peripheral neuropathy: Continue gabapentin Seizure disorder: Continue Keppra Hypertension: Continue antihypertensives DVT prophylaxis: heparin and GI prophylaxis Disposition: continue inpatient care, EEG and MRI pending. daily HD needs, d/c once cleared by Nephrology History Interval history: Patient was seen and examined. Follow-up on current diagnosis. No overnight events reported to me. Patient denies any chest pain, shortness breath, nausea/vomiting or severe headaches. Imaging, nursing note, chart, labs and old chart reviewed. Discussed with patient. Hospitalist Physical - Physical exam Narrative exam: Gen: ill appearing, chronically disable appearing, lethargic but arousable HEENT: NCAT, EOMI, PERRL, OP Clear Neck: supple, no adenopathy, no thyromegaly, no JVD CVS/Heart: RRR, normal S1S2, pulses present bilaterally Chest/Lungs: CTA B, Symmetrical chest expansion, good air entry bilaterally GI/Abdomen: soft, NTND, good bowel sounds, no guarding or rebound /Bladder: no suprapubic tenderness, no CVA or paraspinal tenderness Extermity/Skin: diffuse hyperpigmented coin lichenification lesion MSK: not following commands Neuro: not following commands Psych: lethargic - Constitutional Vitals: Temp Pulse Resp BP Pulse Ox 98.0 F 56 L 18 99/65 60 L 10/19/18 04:37 10/19/18 04:37 10/19/18 04:37 10/19/18 06:42 10/19/18 04:37 General appearance: Present: no acute distress, well-nourished Results - Labs CBC & Chem 7: 10/19/18 05:20 10/19/18 05:20 Labs: Laboratory Last Values WBC 8.0 K/mm3 (4.5-11.0) 10/19/18 05:20 RBC 3.46 M/mm3 (3.65-5.03) L 10/19/18 05:20 Hgb 10.7 gm/dl (10.1-14.3) 10/19/18 05:20 Hct 33.9 % (30.3-42.9) 10/19/18 05:20 MCV 98 fl (79-97) H 10/19/18 05:20 MCH 31 pg (28-32) 10/19/18 05:20 MCHC 32 % (30-34) 10/19/18 05:20 RDW 16.4 % (13.2-15.2) H 10/19/18 05:20 Plt Count 55 K/mm3 (140-440) L 10/19/18 05:20 Lymph % (Auto) 13.2 % (13.4-35.0) L 10/18/18 09:09 Dawes % (Auto) 5.5 % (0.0-7.3) 10/18/18 09:09 Eos % (Auto) 0.4 % (0.0-4.3) 10/18/18 09:09 Baso % (Auto) 0.2 % (0.0-1.8) 10/18/18 09:09 Lymph # 1.1 K/mm3 (1.2-5.4) L 10/18/18 09:09 Dawes # 0.4 K/mm3 (0.0-0.8) 10/18/18 09:09 Eos # 0.0 K/mm3 (0.0-0.4) 10/18/18 09:09 Baso # 0.0 K/mm3 (0.0-0.1) 10/18/18 09:09 Add Manual Diff Complete 10/19/18 05:20 Total Counted 100 10/19/18 05:20 Seg Neutrophils % 80.7 % (40.0-70.0) H 10/18/18 09:09 Seg Neuts % (Manual) 67.0 % (40.0-70.0) 10/19/18 05:20 0 % 10/19/18 05:20 23.0 % (13.4-35.0) 10/19/18 05:20 Reactive Lymphs % (Man) 0 % 10/19/18 05:20 9.0 % (0.0-7.3) H 10/19/18 05:20 1.0 % (0.0-4.3) 10/19/18 05:20 0 % (0.0-1.8) 10/19/18 05:20 0 % 10/19/18 05:20 0 % 10/19/18 05:20 0 % 10/19/18 05:20 0 % 10/19/18 05:20 Nucleated RBC % 4.0 % (0.0-0.9) H 10/19/18 05:20 Seg Neutrophils # 6.6 K/mm3 (1.8-7.7) 10/18/18 09:09 Seg Neutrophils # Man 5.4 K/mm3 (1.8-7.7) 10/19/18 05:20 Band Neutrophils # 0.0 K/mm3 10/19/18 05:20 1.8 K/mm3 (1.2-5.4) 10/19/18 05:20 Abs React Lymphs (Man) 0.0 K/mm3 10/19/18 05:20 0.7 K/mm3 (0.0-0.8) 10/19/18 05:20 0.1 K/mm3 (0.0-0.4) 10/19/18 05:20 0.0 K/mm3 (0.0-0.1) 10/19/18 05:20 0.0 K/mm3 10/19/18 05:20 0.0 K/mm3 10/19/18 05:20 0.0 K/mm3 10/19/18 05:20 Blast Cells # 0.0 K/mm3 10/19/18 05:20 WBC Morphology Not Reportable 10/19/18 05:20 Hypersegmented Neuts Not Reportable 10/19/18 05:20 Hyposegmented Neuts Not Reportable 10/19/18 05:20 Hypogranular Neuts Not Reportable 10/19/18 05:20 Not Reportable 10/19/18 05:20 Not Reportable 10/19/18 05:20 Not Reportable 10/19/18 05:20 Not Reportable 10/19/18 05:20 Not Reportable 10/19/18 05:20 Not Reportable 10/19/18 05:20 Consistent w auto 10/19/18 05:20 Not Reportable 10/19/18 05:20 Plt Clumps, EDTA Not Reportable 10/19/18 05:20 Not Reportable 10/19/18 05:20 Not Reportable 10/19/18 05:20 Not Reportable 10/19/18 05:20 Plt Morphology Comment Not Reportable 10/19/18 05:20 RBC Morphology Not Reportable 10/19/18 05:20 Dimorphic RBCs Not Reportable 10/19/18 05:20 Not Reportable 10/19/18 05:20 Not Reportable 10/19/18 05:20 Not Reportable 10/19/18 05:20 1+ 10/19/18 05:20 Not Reportable 10/19/18 05:20 Not Reportable 10/19/18 05:20 Not Reportable 10/19/18 05:20 Not Reportable 10/19/18 05:20 Not Reportable 10/19/18 05:20 Not Reportable 10/19/18 05:20 Not Reportable 10/19/18 05:20 Not Reportable 10/19/18 05:20 Not Reportable 10/19/18 05:20 Not Reportable 10/19/18 05:20 Not Reportable 10/19/18 05:20 Not Reportable 10/19/18 05:20 Not Reportable 10/19/18 05:20 Not Reportable 10/19/18 05:20 Not Reportable 10/19/18 05:20 Acanthocytes (Spur) Not Reportable 10/19/18 05:20 Rouleaux Not Reportable 10/19/18 05:20 Not Reportable 10/19/18 05:20 Not Reportable 10/19/18 05:20 Not Reportable 10/19/18 05:20 Not Reportable 10/19/18 05:20 Hem Pathologist Commnt Sent to pathology 10/19/18 05:20 PT 20.6 Sec. (12.2-14.9) H 10/17/18 10:19 INR 1.81 (0.87-1.13) H 10/17/18 10:19 APTT 35.6 Sec. (24.2-36.6) 10/17/18 10:19 18.7 Sec. (15.1-19.6) 10/17/18 10:19 Sodium 137 mmol/L (137-145) 10/19/18 05:20 Potassium 4.8 mmol/L (3.6-5.0) 10/19/18 05:20 Chloride 98.9 mmol/L (98-107) 10/19/18 05:20 Carbon Dioxide 21 mmol/L (22-30) L 10/19/18 05:20 22 mmol/L 10/19/18 05:20 BUN 52 mg/dL (7-17) H 10/19/18 05:20 4.2 mg/dL (0.7-1.2) H 10/19/18 05:20 Estimated GFR 13 ml/min 10/19/18 05:20 12 % 10/19/18 05:20 Glucose 106 mg/dL (65-100) H 10/19/18 05:20 POC Glucose 141 (70-105) H 10/19/18 09:06 Calcium 8.6 mg/dL (8.4-10.2) 10/19/18 05:20 Phosphorus 3.80 mg/dL (2.5-4.5) 10/19/18 05:20 Iron 55 ug/dL (37-170) 10/19/18 08:34 TIBC 193 mcg/dL (250-450) L 10/19/18 08:34 2450.0 ng/mL (13.0-400.0) H 10/19/18 08:34 44.0 umol/L (25-60) 10/17/18 15:43 892 units/L (91-180) H 10/19/18 08:34 3216 units/L (30-135) H 10/17/18 15:15 4.720 ng/mL (0.00-0.029) H* 10/17/18 Unknown Triglycerides 102 mg/dL (2-149) 10/17/18 Unknown Cholesterol 198 mg/dL (50-199) 10/17/18 Unknown 116 mg/dL (50-130) 10/17/18 Unknown 88 mg/dL (40-59) H 10/17/18 Unknown 2.25 % 10/17/18 Unknown Vitamin B12 1296 pg/mL (211-911) H 10/19/18 08:34 8.42 ng/mL (7.3-26.0) 10/19/18 08:34 TSH 1.030 mlU/mL (0.270-4.200) 10/17/18 Unknown Free T4 1.26 ng/dL (0.76-1.46) 10/17/18 Unknown Yellow (Yellow) 10/17/18 11:25 Slightly-cloudy (Clear) 10/17/18 11:25 5.0 (5.0-7.0) 10/17/18 11:25 Ur Specific Thompson 1.019 (1.003-1.030) 10/17/18 11:25 100 mg/dl mg/dL (Negative) 10/17/18 11:25 150 mg/dL (Negative) 10/17/18 11:25 Tr mg/dL (Negative) 10/17/18 11:25 Sm (Negative) 10/17/18 11:25 Neg (Negative) 10/17/18 11:25 Neg (Negative) 10/17/18 11:25 < 2.0 mg/dL (<2.0) 10/17/18 11:25 Ur Leukocyte Esterase Tr (Negative) 10/17/18 11:25 3.0 /HPF (0.0-6.0) 10/17/18 11:25 2.0 /HPF (0.0-6.0) 10/17/18 11:25 Few /HPF 10/17/18 11:25 None seen (None Seen) 10/17/18 13:16 271.1 mg/dL (0.1-20.0) H 10/17/18 13:34 Protein/Creatinin Ratio 0.69 10/17/18 13:16 12 mmol/L 10/17/18 13:34 191 mg/dL (5-11.8) H 10/17/18 13:16 Salicylates < 0.3 mg/dL (2.8-20.0) L 10/17/18 Unknown Acetaminophen < 5.0 ug/mL (10.0-30.0) L 10/17/18 Unknown Plasma/Serum Alcohol < 0.01 % (0-0.07) 10/17/18 Unknown Hepatitis A IgM Ab Non-reactive (NonReactive) 10/17/18 15:15 Hep Bs Antigen Non-reactive (Negative) 10/17/18 15:15 Hep B Core IgM Ab Non-reactive (NonReactive) 10/17/18 15:15 Non-reactive (NonReactive) 10/17/18 15:15 Rare 10/17/18 15:43 Active Medications - Current Medications Current Medications: Generic Name Dose Route Start Last Admin Trade Name Freq PRN Reason Stop Dose Admin Docusate Sodium 100 mg 10/17/18 22:00 10/18/18 22:23 Colace PO 100 mg BID ALLEY Administration Ergocalciferol 50,000 unit 10/24/18 10:00 Vitamin D2 PO Sa [facility] Famotidine 20 mg 10/18/18 10:00 10/18/18 09:45 Pepcid IV 20 mg QDAY ALLEY Administration Gabapentin 300 mg 10/17/18 22:00 10/18/18 22:23 Neurontin PO 300 mg QHS ALLEY Administration Hydralazine HCl 10 mg 10/17/18 17:00 10/19/18 06:42 Apresoline PO Not Given Q8HR ALLEY Hydralazine HCl 10 mg 10/17/18 21:21 Apresoline IV Q4HR PRN Blood Pressure Sodium Chloride 100 mls @ 999 mls/hr 10/17/18 15:08 Nacl 0.9% IV LESLIE PRN Hypotension Levetiracetam 500 mg/ Dextrose 105 mls @ 400 mls/hr 10/17/18 22:00 10/18/18 22:32 IV 400 mls/hr Q12HR ALLEY Administration Insulin Human Lispro 0 unit 10/17/18 22:00 10/18/18 22:31 Humalog SUB-Q 6 unit ACHS ALLEY Administration Protocol Latanoprost 1 drops 10/17/18 18:00 10/18/18 18:27 Latanoprost 0.005% OU 1 drops QPM ALLEY Administration Pravastatin Sodium 40 mg 10/17/18 22:00 10/18/18 22:24 Pravachol PO 40 mg QHS ALLEY Administration Sodium Bicarbonate 325 mg 10/17/18 17:00 10/18/18 09:44 Sodium Bicarbonate PO Not Given DAILY ALLEY Nutrition/Malnutrition Assess - Dietary Evaluation Nutrition/Malnutrition Findings: Nutrition Notes Start: 10/18/18 14:28 Freq: Status: Active Protocol: Document 10/18/18 14:28 RM (Rec: 10/18/18 14:36 RM [id number]) Nutrition Notes Need for Assessment generated from: MD Order Initial or Follow up Assessment Current Diagnosis Acute Kidney Injury,CKD(stage I-IV),Coronary Artery Disease, Diabetes,Hypertension,Stroke, Hyperlipidemia Other Pertinent Diagnosis Hx CVA, Acute encephalopathy Current Diet NPO Labs/Tests K 6.6 (10/17/18) Pertinent Medications Reviewed Height 5 ft 2 in Weight 68.039 kg [place] Body Weight (kg) 50.00 BMI 27.4 Subjective/Other Information Consulted for ONS diet. Screened for difficulty chewing. Swallow evaluation ordered. Pt asleep at time of visit. No temporal or orbital wasting . Percent of energy/protein needs met: 0%/0% Burn Absent Trauma Absent #1 Nutrition Diagnosis Inadequate oral intake Etiology CVA As Evidenced by Signs and Symptoms NPO status Is patient on ventilator? No Is Patient Ambulatory and/or Out of Bed No REE-([facility]-confined to bed) 1431.600 Calculation Used for Recommendations [facility] Additional Notes Protein Needs: 54-68g (0.8-1g/ kg) Fluid Needs: 1 ml/kcal Nutrition Intervention Change Diet Order: Per ST Add Supplement/Snack (indicate name/kcal Nepro 1 daily once diet /protein ) advanced Provides kCal: 425 Provides Protein (gm) 19 Goal #[address] recommendation Anticipated Discharge Needs: Unable to determine at this time Follow-Up By: 10/21/18 Additional Comments Follow for PO and ONS intakes
[2018-10-19] MEDS: HumaLOG SUB-Q SCH ×4 (13:47→23:10)
[2018-10-19] MEDS: PEPCID IV SCH (13:47)
[2018-10-19] MEDS: KEPPRA 500 MG in D5W 100 ML IV SCH ×2 (13:47→23:10)
[2018-10-19] MEDS: COLACE PO SCH ×2 (13:47→23:09)
[2018-10-19] MEDS: SODIUM BICARBONATE PO SCH (13:48)
[2018-10-19] MEDS ORDERED: NACL 0.9 (PRIMING MACHINE ONLY DIALYSIS) MC ONE (14:34)
--- NOTE | 2018-10-19 17:40 | Magnetic Resonance Report ---
MR brain wo con INDICATION / CLINICAL INFORMATION: 63 years Female; ams. TECHNIQUE: Multiplanar, multisequence MR images of the brain were obtained. COMPARISON: CT - 10/17/2018 FINDINGS: BRAIN / INTRACRANIAL CONTENTS: Multiple ischemic areas seen - the larger areas were seen on recent CT . Branch MCA infarct seen in the middle and inferior frontal gyral region on the left. Branch CLASSER inf arct seen on the left, including calcarine cortex. Small focus of ischemia seen in the left precuneus . There are small foci of ischemia seen in the superior frontal gyrus and paracentral lobule regions on the right, superiorly. Minimal involvement of the genu/rostrum of the corpus callosum is suggested . Punctate involvement seen in the right parietal temporal region. Other, scattered, punctate areas o f ischemia may be present as well. Because of these findings, embolic phenomena should be considered. Otherwise, no acute hemorrhage, mass effect, midline shift, hydrocephalus, or acute, large territoria l infarct. No chronic infarct or atrophy. Lacunar infarcts suggested in the thalamic regions. There are moderate areas of increased signal intensity on FLAIR imaging in the white matter of the ce rebral hemispheres, as well as the gangliocapsular regions. These are nonspecific findings and may be related to microangiopathy (hypertension, diabetes, atherosclerosis), given the patient's age. CRANIOCERVICAL JUNCTION: No significant abnormality. VASCULAR FLOW-VOIDS: No significant abnormality. ORBITS: No significant abnormality of visualized orbits. SINUSES / MASTOIDS: There is mild mucosal thickening with the ethmoids. ADDITIONAL FINDINGS: None. IMPRESSION: 1. Multiple areas of ischemia as described above, worrisome for embolic phenomenon. No evidence of he morrhagic transformation at this time. Signer Name: Adam Ricketts MD, III Signed: 10/19/2018 5:35 PM Workstation Name: [email or web address]
--- NOTE | 2018-10-19 22:52 | Event Note ---
Date: 10/19/18 [id number]
[2018-10-19] MEDS: NEURONTIN PO SCH (23:09)
[2018-10-19] MEDS: PRAVACHOL PO SCH (23:10)
[2018-10-20] MEDS: LATANOPROST 0.005% OU SCH ×2 (03:17→18:12)
[2018-10-20 05:51] LABS: Basophils % (Auto) 0.4 % (0.0-1.8); Eosinophils # (Auto) 0.2 K/mm3 (0.0-0.4); Eosinophils % (Auto) 2.3 % (0.0-4.3); Hematocrit 30.4 % (30.3-42.9); Lymphocytes # (Auto) 1.6 K/mm3 (1.2-5.4); Lymphocytes % (Auto) 22.7 % (13.4-35.0); Mean Corpuscular HGB Conc 33 % (30-34); Mean Corpuscular Volume 94 fl (79-97); Monocytes # (Auto) 0.5 K/mm3 (0.0-0.8); Platelet Count 111 K/mm3 (140-440); Red Blood Count 3.23 M/mm3 (3.65-5.03); Red Cell Distribution Width 15.7 % (13.2-15.2)
[2018-10-20 06:09] LABS: Albumin 2.9 g/dL (3.9-5)
[2018-10-20] MEDS: APRESOLINE PO SCH ×3 (06:32→22:25)
--- NOTE | 2018-10-20 07:51 | Hem/Onc Progress Note ---
Assessment and Plan 1. Elevated LDH. Smear has been evaluated. Heparin-induced thrombocytopenia has been ordered. 2. Renal impairment. Nephrology team following the patient. We will do SPEP and immunofixation. 3. deficiency investigation. The smear evaluation is being done. The platelet counts at admission were normal and then have gone down. The cause of thrombocytopenia at this time is not clear. Her mentation is also not perfect. I will follow the trend of the counts. 4. Cerebrovascular accident suspected. MRI pending. 5. Electrolyte imbalance. 6. Vitamin D deficiency. 8. History of diabetes. 9. History of hypertension. 10. History of seizure. 11. Hyperlipidemia. - Patient Problems (1) Thrombocytopenia Current Visit: Yes Status: Acute Subjective Date of service: 10/20/18 Principal diagnosis: low plt Interval history: not arousable Objective - Exam Narrative Exam: Pain Not evaluable General appearance no acute distress Performance status -completely disabled Eyes EOM not able to evaluate ENT no nose/ear bleed LNs cervical not palpable Neck Not evaluable Respiratory Normal Breath sounds - CTA anteriorly CVS S1 S2 + Extremities normal temperature/ no edema General GI Soft non tender Rectal deferred Female - deferred Skin warm Musculoskeletal generalized weakness Neurologically not responsive - Constitutional Vitals: Last Vital Signs Temp 98.3 F 10/20/18 04:18 Pulse 80 10/20/18 06:32 Resp 20 10/20/18 04:18 BP 111/76 10/20/18 04:18 Pulse Ox 97 10/20/18 04:18 - Labs Lab Results: Laboratory Results - last 24 hr 10/19/18 10/19/18 10/19/18 05:20 08:34 08:34 WBC 8.0 RBC 3.46 L Hgb 10.7 Hct 33.9 MCV 98 H MCH 31 MCHC 32 RDW 16.4 H Plt Count 55 L Lymph % (Auto) [place] % (Auto) Eos % (Auto) Baso % (Auto) Lymph # [place] # Eos # Baso # Add Manual Diff Complete Total Counted 100 Seg Neutrophils % Seg Neuts % (Manual) 67.0 Band Neutrophils % 0 Lymphocytes % (Manual) 23.0 Reactive Lymphs % (Man) 0 Monocytes % (Manual) 9.0 H Eosinophils % (Manual) 1.0 Basophils % (Manual) 0 Metamyelocytes % 0 Myelocytes % 0 Promyelocytes % 0 Blast Cells % 0 Nucleated RBC % 4.0 H Seg Neutrophils # Seg Neutrophils # Man 5.4 Band Neutrophils # 0.0 Lymphocytes # (Manual) 1.8 Abs React Lymphs (Man) 0.0 Monocytes # (Manual) 0.7 Eosinophils # (Manual) 0.1 Basophils # (Manual) 0.0 Metamyelocytes # 0.0 Myelocytes # 0.0 Promyelocytes # 0.0 Blast Cells # 0.0 WBC Morphology Not Reportable Platelet Estimate Consistent w auto Anisocytosis 1+ Hem Pathologist Commnt Sent to pathology Sodium Potassium Chloride Carbon Dioxide Anion Gap BUN Creatinine Estimated GFR BUN/Creatinine Ratio Glucose POC Glucose Calcium Phosphorus Iron TIBC Ferritin 2450.0 H Total Bilirubin AST ALT Alkaline Phosphatase Lactate Dehydrogenase Total Protein Albumin Albumin/Globulin Ratio Vitamin B12 Folate 8.42 10/19/18 10/19/18 10/19/18 08:34 08:34 09:06 WBC RBC Hgb Hct MCV MCH MCHC RDW Plt Count Lymph % (Auto) [place] % (Auto) Eos % (Auto) Baso % (Auto) Lymph # [place] # Eos # Baso # Add Manual Diff Total Counted Seg Neutrophils % Seg Neuts % (Manual) Band Neutrophils % Lymphocytes % (Manual) Reactive Lymphs % (Man) Monocytes % (Manual) Eosinophils % (Manual) Basophils % (Manual) Metamyelocytes % Myelocytes % Promyelocytes % Blast Cells % Nucleated RBC % Seg Neutrophils # Seg Neutrophils # Man Band Neutrophils # Lymphocytes # (Manual) Abs React Lymphs (Man) Monocytes # (Manual) Eosinophils # (Manual) Basophils # (Manual) Metamyelocytes # Myelocytes # Promyelocytes # Blast Cells # WBC Morphology Platelet Estimate Anisocytosis Hem Pathologist Commnt Sodium Potassium Chloride Carbon Dioxide Anion Gap BUN Creatinine Estimated GFR BUN/Creatinine Ratio Glucose POC Glucose 141 H Calcium Phosphorus Iron 55 TIBC 193 L Ferritin Total Bilirubin AST ALT Alkaline Phosphatase Lactate Dehydrogenase 892 H Total Protein Albumin Albumin/Globulin Ratio Vitamin B12 1296 H Folate 10/19/18 10/19/18 10/19/18 13:41 15:53 22:51 WBC RBC Hgb Hct MCV MCH MCHC RDW Plt Count Lymph % (Auto) [place] % (Auto) Eos % (Auto) Baso % (Auto) Lymph # [place] # Eos # Baso # Add Manual Diff Total Counted Seg Neutrophils % Seg Neuts % (Manual) Band Neutrophils % Lymphocytes % (Manual) Reactive Lymphs % (Man) Monocytes % (Manual) Eosinophils % (Manual) Basophils % (Manual) Metamyelocytes % Myelocytes % Promyelocytes % Blast Cells % Nucleated RBC % Seg Neutrophils # Seg Neutrophils # Man Band Neutrophils # Lymphocytes # (Manual) Abs React Lymphs (Man) Monocytes # (Manual) Eosinophils # (Manual) Basophils # (Manual) Metamyelocytes # Myelocytes # Promyelocytes # Blast Cells # WBC Morphology Platelet Estimate Anisocytosis Hem Pathologist Commnt Sodium Potassium Chloride Carbon Dioxide Anion Gap BUN Creatinine Estimated GFR BUN/Creatinine Ratio Glucose POC Glucose 156 H 193 H 228 H Calcium Phosphorus Iron TIBC Ferritin Total Bilirubin AST ALT Alkaline Phosphatase Lactate Dehydrogenase Total Protein Albumin Albumin/Globulin Ratio Vitamin B12 Folate 10/20/18 10/20/18 10/20/18 05:07 05:07 05:07 WBC 6.8 RBC 3.23 L Hgb 10.0 L Hct 30.4 MCV 94 MCH 31 MCHC 33 RDW 15.7 H Plt Count 111 L D Lymph % (Auto) 22.7 [place] % (Auto) 8.0 H Eos % (Auto) 2.3 Baso % (Auto) 0.4 Lymph # 1.6 [place] # 0.5 Eos # 0.2 Baso # 0.0 Add Manual Diff Total Counted Seg Neutrophils % 66.6 Seg Neuts % (Manual) Band Neutrophils % Lymphocytes % (Manual) Reactive Lymphs % (Man) Monocytes % (Manual) Eosinophils % (Manual) Basophils % (Manual) Metamyelocytes % Myelocytes % Promyelocytes % Blast Cells % Nucleated RBC % Seg Neutrophils # 4.5 Seg Neutrophils # Man Band Neutrophils # Lymphocytes # (Manual) Abs React Lymphs (Man) Monocytes # (Manual) Eosinophils # (Manual) Basophils # (Manual) Metamyelocytes # Myelocytes # Promyelocytes # Blast Cells # WBC Morphology Platelet Estimate Anisocytosis Hem Pathologist Commnt Sodium 138 Potassium 3.8 D Chloride 98.4 Carbon Dioxide 25 Anion Gap 18 BUN 32 H Creatinine 3.2 H Estimated GFR 18 BUN/Creatinine Ratio 10 Glucose 177 H POC Glucose Calcium 8.0 L Phosphorus 3.40 Iron TIBC Ferritin Total Bilirubin 0.50 AST 305 H ALT 728 H Alkaline Phosphatase 402 H Lactate Dehydrogenase Total Protein 6.0 L Albumin 2.9 L Albumin/Globulin Ratio 0.9 Vitamin B12 Folate Medications & Allergies - Medications Allergies/Adverse Reactions: Allergies NSAIDS (Non-Steroidal Anti-Inflamma Adverse Reaction (Verified 01/02/17 05:56) Unknown Tetracyclines Adverse Reaction (Verified 09/26/14 12:09) Unknown Home Medications: Home Medications Medication Instructions Recorded Confirmed Last Taken Type RX: Ergocalciferol [Vitamin D2] 50,000 unit PO QWEEK capsule 09/25/16 10/17/18 Unknown Rx RX: Latanoprost 0.005% 1 drop OP QPM 01/02/17 10/17/18 Unknown History RX: Sodium Bicarbonate 325 mg PO DAILY 01/02/17 10/17/18 Unknown History RX: Clopidogrel [Plavix] 75 mg PO DAILY #30 tablet 01/08/17 10/17/18 Unknown Rx RX: Docusate Sodium [Colace CAP] 100 mg PO BID #60 capsule 01/08/17 10/17/18 Unknown Rx RX: Famotidine [Pepcid] 10 mg PO BID #60 tablet 01/08/17 10/17/18 Unknown Rx RX: Gabapentin [Neurontin] 300 mg PO QHS #30 capsule 01/08/17 10/17/18 Unknown Rx RX: Simvastatin [Zocor TAB] 20 mg PO QHS #60 tablet 01/08/17 10/17/18 Unknown Rx RX: glipiZIDE [Glucotrol] 5 mg PO QDDIAB #60 tablet 01/08/17 10/17/18 Unknown Rx RX: hydrALAZINE [Apresoline TAB] 10 mg PO Q8HR #90 tablet 01/08/17 10/17/18 Unknown Rx RX: levETIRAcetam [Keppra TAB] 500 mg PO BID #60 tablet 01/08/17 10/17/18 Unknown Rx Active Medications: Generic Name Dose Route Start Last Admin Trade Name Shiloq PRN Reason Stop Dose Admin Docusate Sodium 100 mg 10/17/18 22:00 10/19/18 23:09 Colace PO 100 mg BID ALLEY Administration Ergocalciferol 50,000 unit 10/24/18 10:00 Vitamin D2 PO Sa ALLEY Famotidine 20 mg 10/18/18 10:00 10/19/18 13:47 Pepcid IV 20 mg QDAY AL[facility] Administration Gabapentin 300 mg 10/17/18 22:00 10/19/18 23:09 Neurontin PO 300 mg QHS ALLEY Administration Hydralazine HCl 10 mg 10/17/18 17:00 10/20/18 06:32 Apresoline PO 10 mg Q8HR ALLEY Administration Hydralazine HCl 10 mg 10/17/18 21:21 Apresoline IV Q4HR PRN Blood Pressure Sodium Chloride 100 mls @ 999 mls/hr 10/17/18 15:08 Nacl 0.9% IV LESLIE PRN Hypotension Levetiracetam 500 mg/ Dextrose 105 mls @ 400 mls/hr 10/17/18 22:00 10/19/18 23:10 IV 400 mls/hr Q12HR ALLEY Administration Insulin Human Lispro 0 unit 10/17/18 22:00 10/19/18 23:10 Humalog SUB-Q 3 unit ACHS ALLEY Administration Protocol Latanoprost 1 drops 10/17/18 18:00 10/20/18 03:17 Latanoprost 0.005% OU Not Given QPM ALLEY Pravastatin Sodium 40 mg 10/17/18 22:00 10/19/18 23:10 Pravachol PO 40 mg QHS ALLEY Administration Sodium Bicarbonate 325 mg 10/17/18 17:00 10/19/18 13:48 Sodium Bicarbonate PO 325 mg DAILY ALLEY Administration
--- NOTE | 2018-10-20 09:47 | Ultrasound Report ---
LIMITED RUQ ABDOMINAL ULTRASOUND INDICATION: Abnormal liver function tests. COMPARISON: No relevant prior imaging study available. FINDINGS: Pancreas: Visualized portions show no significant abnormality. Abdominal Aorta: No significant abnormality. IVC: No significant abnormality. Liver: The liver measures 15 cm in length. No significant abnormality. Normal hepatopedal blood flow in the main portal vein. Gallbladder: There are numerous tiny gallstones within the gallbladder. No evidence for abnormal dila tation, wall thickening or surrounding fluid.. Bile ducts: No significant abnormality. Common bile duct measures 3 mm. Right kidney: The right kidney is normal size measuring 9.2 cm in length but demonstrates increased e chotexture consistent with nonspecific renal parenchymal disease.. Free fluid: None. Additional Findings: Small to medium right pleural effusion.. IMPRESSION: Cholelithiasis. Nonspecific renal parenchymal disease. Right pleural effusion.. Signer Name: Bakari Tobin Jr, MD Signed: 10/20/2018 9:42 AM Workstation Name: [id number]
[2018-10-20] MEDS: SODIUM BICARBONATE PO SCH (10:37)
[2018-10-20] MEDS: PEPCID IV SCH (10:38)
[2018-10-20] MEDS: COLACE PO SCH ×2 (10:38→22:24)
[2018-10-20] MEDS: KEPPRA 500 MG in D5W 100 ML IV SCH ×2 (10:38→22:43)
[2018-10-20] MEDS: HumaLOG SUB-Q SCH ×4 (10:38→22:42)
--- NOTE | 2018-10-20 11:32 | Consultation ---
History of Present Illness Consult date: 10/20/18 Consult reason: other (NSVT) History of present illness: Patient is a 63-year old woman who was admitted 10/17 for suspected CVA versus Seizures and renal failure with hyperkalemia. Patient has been initiated on dialysis. A cardiac consultation has been requested for short burst of non- sustained ventricular tachycardia seen on telemetry. History is unobtainable. There are no family members present. There are no reports of chest pain, shortness of breath or palpitations. TSH is within normal limit. Her presenting ECG is sinus rhythm, no acute ischemic changes. Labs today shows elevated liver enzymes with an elevated alkaline phosphatase. C reatinine of 3.2. Platelets of 111,000. Records reviewed shows a cardiac history of coronary artery disease with prior bypass grafting. In 2017, a persantine thallium stress test revealed no signific ant ischemia, normal left ventricular systolic function, EF 50-55%. It is unclear if the patient follows up with a room service bellhop on a routine basis or if she takes any medications. Past History Past Medical History: other (CKD, HTn and DM) Medications and Allergies Allergies Allergy/AdvReac Type Severity Reaction Status Date / Time NSAIDS (Non-Steroidal AdvReac Unknown Verified 01/02/17 05:56 Anti-Inflamma Tetracyclines AdvReac Unknown Verified 09/26/14 12:09 Home Medications Medication Instructions Recorded Confirmed Last Taken Type Ergocalciferol [Vitamin D2] 50,000 unit PO QWEEK capsule 09/25/16 10/17/18 Unknown Rx Latanoprost 0.005% 1 drop OP QPM 01/02/17 10/17/18 Unknown History Sodium Bicarbonate 325 mg PO DAILY 01/02/17 10/17/18 Unknown History Clopidogrel [Plavix] 75 mg PO DAILY #30 tablet 01/08/17 10/17/18 Unknown Rx Docusate Sodium [Colace CAP] 100 mg PO BID #60 capsule 01/08/17 10/17/18 Unknown Rx Famotidine [Pepcid] 10 mg PO BID #60 tablet 01/08/17 10/17/18 Unknown Rx Gabapentin [Neurontin] 300 mg PO QHS #30 capsule 01/08/17 10/17/18 Unknown Rx Simvastatin [Zocor TAB] 20 mg PO QHS #60 tablet 01/08/17 10/17/18 Unknown Rx glipiZIDE [Glucotrol] 5 mg PO QDDIAB #60 tablet 01/08/17 10/17/18 Unknown Rx hydrALAZINE [Apresoline TAB] 10 mg PO Q8HR #90 tablet 01/08/17 10/17/18 Unknown Rx levETIRAcetam [Keppra TAB] 500 mg PO BID #60 tablet 01/08/17 10/17/18 Unknown Rx Active Meds: Active Medications Docusate Sodium (Colace) 100 mg PO BID [facility] Last Admin: 10/20/18 10:38 Dose: 100 mg Documented by: Ergocalciferol (Vitamin D2) 50,000 unit PO Sa [facility] Famotidine (Pepcid) 20 mg PO DAILY [facility] Gabapentin (Neurontin) 300 mg PO QHS [facility] Last Admin: 10/19/18 23:09 Dose: 300 mg Documented by: Hydralazine HCl (Apresoline) 10 mg PO Q8HR [facility] Last Admin: 10/20/18 06:32 Dose: 10 mg Documented by: Hydralazine HCl (Apresoline) 10 mg IV Q4HR PRN PRN Reason: Blood Pressure Sodium Chloride (Nacl 0.9%) 100 mls @ 999 mls/hr IV LESLIE PRN PRN Reason: Hypotension Levetiracetam 500 mg/ Dextrose 105 mls @ 400 mls/hr IV Q12HR [facility] Stop: 10/20/18 23:59 Last Admin: 10/20/18 10:38 Dose: 400 mls/hr Documented by: Insulin Human Lispro (Humalog) 0 unit SUB-Q ACHS [facility]; Protocol Last Admin: 10/20/18 10:38 Dose: 2 unit Documented by: Latanoprost (Latanoprost 0.005%) 1 drops OU QPM [facility] Last Admin: 10/20/18 03:17 Dose: Not Given Documented by: Levetiracetam (Keppra) 500 mg PO BID [facility] Pravastatin Sodium (Pravachol) 40 mg PO QHS [facility] Last Admin: 10/19/18 23:10 Dose: 40 mg Documented by: Sodium Bicarbonate (Sodium Bicarbonate) 325 mg PO DAILY [facility] Last Admin: 10/20/18 10:37 Dose: 325 mg Documented by: Physical Examination Vital Signs Temp Pulse Resp BP Pulse Ox 97.7 F 57 L 16 128/78 87 10/17/18 10:10 10/17/18 10:10 10/17/18 10:10 10/17/18 10:10 10/17/18 10:10 General appearance: no acute distress Neck: Positive: trachea midline Cardiac: Positive: Reg Rate and Rhythm Lungs: Positive: Decreased Breath Sounds Neuro: Positive: Grossly Intact Extremities: Absent: edema Results 10/20/18 05:07 10/20/18 05:07 Cardiac Enzymes 10/20/18 Range/Units 05:07 AST 305 H (5-40) units/L CBC 10/20/18 Range/Units 05:07 WBC 6.8 (4.5-11.0) K/mm3 RBC 3.23 L (3.65-5.03) M/mm3 Hgb 10.0 L (10.1-14.3) gm/dl Hct 30.4 (30.3-42.9) % Plt Count 111 L D (140-440) K/mm3 Lymph # 1.6 (1.2-5.4) K/mm3 [place] # 0.5 (0.0-0.8) K/mm3 Eos # 0.2 (0.0-0.4) K/mm3 Baso # 0.0 (0.0-0.1) K/mm3 Comprehensive Metabolic Panel 10/20/18 Range/Units 05:07 Sodium 138 (137-145) mmol/L Potassium 3.8 D (3.6-5.0) mmol/L Chloride 98.4 (98-107) mmol/L Carbon Dioxide 25 (22-30) mmol/L BUN 32 H (7-17) mg/dL Creatinine 3.2 H (0.7-1.2) mg/dL Glucose 177 H (65-100) mg/dL Calcium 8.0 L (8.4-10.2) mg/dL AST 305 H (5-40) units/L ALT 728 H (7-56) units/L Alkaline Phosphatase 402 H (35-129) units/L Total Protein 6.0 L (6.3-8.2) g/dL Albumin 2.9 L (3.9-5) g/dL Assessment and Plan Suspected CVA versus Seizures Altered mental status Chronic kidney disease initiated on dialysis Elevated liver enzymes Thrombocytopenia Hypertension Diabetes Hx of CAD with prior CABG paroxysmal NSVT TSH is normal No ischemia by MPI 04/2016. Normal LVEF 50-55% by echo 09/2016. We will obtain an echocardiogram for LVEF reassessment. Check a magnesium.
--- NOTE | 2018-10-20 12:24 | Progress Note ---
Assessment and Plan Acute renal failure on chronic kidney disease stage III/IV AG metabolic acidosis Hyperkalemia Metabolic encephalopathy CVA - Renal function reviewed. Serum creatinine 3.2 today, yesterday's was 4.2 - S/P Hemodialysis yesterday for clearance and gentle UF - Creatinine clearance post HD-pending. Will order thomas catheter today for accurate collection. - Urine eosinophils were negative - Renal US- negative for obstruction - Renally dose medications - Strict I&O monitoring - Obtain daily weights - No acute indication for HD today - Assess dialysis needs daily and monitor signs of renal recovery Subjective Date of service: 10/20/18 Principal diagnosis: TUNDE Interval history: Patient off floor. RN states patient has Purewick and not much urine is being collected to do the 24 hour urine collection Objective - Vital Signs Vital signs: Vital Signs - 12hr 10/20/18 10/20/18 10/20/18 00:51 02:16 04:18 Temperature 97.3 F L 97.3 F L 98.3 F Pulse Rate 82 68 80 Respiratory 20 20 20 Rate Blood Pressure 111/76 Blood Pressure 126/56 [Left] O2 Sat by Pulse 100 97 Oximetry 10/20/18 10/20/18 10/20/18 06:32 08:05 10:36 Temperature 97.6 F Pulse Rate 80 72 76 Respiratory 18 18 Rate Blood Pressure 121/79 Blood Pressure [Left] O2 Sat by Pulse 100 Oximetry - Lab 10/20/18 05:07 10/20/18 05:07 Most recent lab results Calcium 8.0 mg/dL (8.4-10.2) L 10/20/18 05:07 Phosphorus 3.40 mg/dL (2.5-4.5) 10/20/18 05:07 271.1 mg/dL (0.1-20.0) H 10/17/18 13:34 12 mmol/L 10/17/18 13:34 191 mg/dL (5-11.8) H 10/17/18 13:16 Medications & Allergies - Medications Allergies/Adverse Reactions: Allergies NSAIDS (Non-Steroidal Anti-Inflamma Adverse Reaction (Verified 01/02/17 05:56) Unknown Tetracyclines Adverse Reaction (Verified 09/26/14 12:09) Unknown Home Medications: Home Medications Medication Instructions Recorded Confirmed Last Taken Type Ergocalciferol [Vitamin D2] 50,000 unit PO QWEEK capsule 09/25/16 10/17/18 Unknown Rx Latanoprost 0.005% 1 drop OP QPM 01/02/17 10/17/18 Unknown History Sodium Bicarbonate 325 mg PO DAILY 01/02/17 10/17/18 Unknown History Clopidogrel [Plavix] 75 mg PO DAILY #30 tablet 01/08/17 10/17/18 Unknown Rx Docusate Sodium [Colace CAP] 100 mg PO BID #60 capsule 01/08/17 10/17/18 Unknown Rx Famotidine [Pepcid] 10 mg PO BID #60 tablet 01/08/17 10/17/18 Unknown Rx Gabapentin [Neurontin] 300 mg PO QHS #30 capsule 01/08/17 10/17/18 Unknown Rx Simvastatin [Zocor TAB] 20 mg PO QHS #60 tablet 01/08/17 10/17/18 Unknown Rx glipiZIDE [Glucotrol] 5 mg PO QDDIAB #60 tablet 01/08/17 10/17/18 Unknown Rx hydrALAZINE [Apresoline TAB] 10 mg PO Q8HR #90 tablet 01/08/17 10/17/18 Unknown Rx levETIRAcetam [Keppra TAB] 500 mg PO BID #60 tablet 01/08/17 10/17/18 Unknown Rx Active Medications: Generic Name Dose Route Start Last Admin Trade Name Freq PRN Reason Stop Dose Admin Docusate Sodium 100 mg 10/17/18 22:00 10/20/18 10:38 Colace PO 100 mg BID AL[facility] Administration Ergocalciferol 50,000 unit 10/24/18 10:00 Vitamin D2 PO Sa ALLEY Famotidine 20 mg 10/21/18 10:00 Pepcid PO DAILY [facility] Gabapentin 300 mg 10/17/18 22:00 10/19/18 23:09 Neurontin PO 300 mg QHS AL[facility] Administration Hydralazine HCl 10 mg 10/17/18 17:00 10/20/18 06:32 Apresoline PO 10 mg Q8HR [facility] Administration Hydralazine HCl 10 mg 10/17/18 21:21 Apresoline IV Q4HR PRN Blood Pressure Sodium Chloride 100 mls @ 999 mls/hr 10/17/18 15:08 Nacl 0.9% IV LESLIE PRN Hypotension Levetiracetam 500 mg/ Dextrose 105 mls @ 400 mls/hr 10/17/18 22:00 10/20/18 10:38 IV 10/20/18 23:59 400 mls/hr Q12HR AL[facility] Administration Insulin Human Lispro 0 unit 10/17/18 22:00 10/20/18 10:38 Humalog SUB-Q 2 unit ACHS [facility] Administration Protocol Latanoprost 1 drops 10/17/18 18:00 10/20/18 03:17 Latanoprost 0.005% OU Not Given QPM [facility] Levetiracetam 500 mg 10/21/18 10:00 Keppra PO BID [facility] Pravastatin Sodium 40 mg 10/17/18 22:00 10/19/18 23:10 Pravachol PO 40 mg QHS [facility] Administration Sodium Bicarbonate 325 mg 10/17/18 17:00 10/20/18 10:37 Sodium Bicarbonate PO 325 mg DAILY AL[facility] Administration
--- NOTE | 2018-10-20 19:28 | Consultation ---
REFERRING PHYSICIAN: Dr. Sharp. REASON FOR CONSULTATION: Thrombocytopenia. HISTORY OF PRESENT ILLNESS: I saw the patient, a 63-year-old Afro-[place]omin[place] female with past history of diabetes, hypertension, coronary artery disease, CKD, came to the hospital, as the sister brought because of weakness and altered mentation. As per the information, the patient was able to do activities of daily living, but has been in the bed, not sure for how long, decreased responsiveness. She was brought to the hospital. The patient was seen by Neurology and Nephrology team. The patient underwent head CT and MRI brain. Platelets were low. Renal impairment was found. I have been asked to evaluate the patient for thrombocytopenia. PAST MEDICAL HISTORY: As above, mention of dementia. SURGICAL HISTORY: MIs, triple bypass. SOCIAL HISTORY: Nonsmoker. HOME MEDICATIONS: Include vitamin D, Plavix, Colace, Pepcid, Neurontin, Zocor, hydralazine, glipizide, Keppra. REVIEW OF SYSTEMS: Not reliable because of the patient being nonverbal. ALLERGIES: To NSAIDs and TETRACYCLINE. PHYSICAL EXAMINATION: VITAL SIGNS: Temperature 98, pulse 79, respirations 20, BP 111/78. HEENT: No pallor, no icterus. NECK: No neck lymph nodes. HEART: S1, S2. LUNGS: Clear to auscultation anteriorly. ABDOMEN: Soft. NEUROLOGIC: Not able to evaluate the patient because of mentation. LABORATORY DATA: White cell 8, hemoglobin 10.7, MCV 98, platelet 55. On 10/17, platelet was 169 and then 125, then 55. Potassium 4.8, creatinine 4.2, calcium 8.6. B12 of 1000, folate 8, serum iron 55, LDH 892. ASSESSMENT AND PLAN: 1. Elevated LDH. Smear has been evaluated. Heparin-induced thrombocytopenia has been ordered. 2. Renal impairment. Nephrology team following the patient. We will do SPEP and immunofixation. 3. We will do deficiency investigation. The smear evaluation is being done. The platelet counts at admission were normal and then have gone down. The cause of thrombocytopenia at this time is not clear. Her mentation is also not perfect. I will follow the trend of the counts. 4. Cerebrovascular accident suspected. MRI pending. 5. Electrolyte imbalance. 6. Vitamin D deficiency. 8. History of diabetes. 9. History of hypertension. 10. History of seizure. 11. Hyperlipidemia. JOB# [id number] REN[place]A/LEANDER
[2018-10-20] MEDS: PRAVACHOL PO SCH (22:23)
[2018-10-20] MEDS: LOPRESSOR PO SCH (22:24)
[2018-10-20] MEDS: NEURONTIN PO SCH (22:24)
--- NOTE | 2018-10-21 05:34 | Hem/Onc Progress Note ---
Assessment and Plan 1. Elevated LDH. Smear has been evaluated. Heparin-induced thrombocytopenia has been ordered. HIT NEGATIVE 2. Renal impairment. Nephrology team following the patient. SPEP and immunofixation. 3. deficiency investigation. The smear evaluation is being done. The platelet counts at admission were normal and then have gone down. The cause of thrombocytopenia at this time is not clear. Her mentation is also not perfect. I will follow the trend of the counts. b12 - folate - iron ferritin normal 4. Cerebrovascular accident suspected. neurology following. 5. Electrolyte imbalance. 6. Vitamin D deficiency. 8. History of diabetes. 9. History of hypertension. 10. History of seizure. 11. Hyperlipidemia. pt plt have improved - smear - rare schistocytes neurology following SPEP - pending - Patient Problems (1) Thrombocytopenia Current Visit: Yes Status: Acute Subjective Date of service: 10/21/18 Principal diagnosis: low plt - ? CVA Interval history: pt non communicative Objective - Exam Narrative Exam: Pain Not evaluable General appearance no acute distress Performance status -completely disabled Eyes EOM not able to evaluate ENT no nose/ear bleed LNs cervical not palpable Neck Not evaluable Respiratory Normal Breath sounds - CTA anteriorly CVS S1 S2 + Extremities normal temperature/ no edema General GI Soft non tender Rectal deferred Female - deferred Skin warm Musculoskeletal generalized weakness Neurologically not responsive - Constitutional Vitals: Last Vital Signs Temp 98.5 F 10/21/18 04:00 Pulse 71 10/21/18 04:00 Resp 20 10/21/18 04:00 BP 97/61 10/21/18 04:00 Pulse Ox 94 10/21/18 04:00 - Labs Lab Results: Laboratory Results - last 24 hr 10/19/18 10/20/18 10/20/18 05:20 05:07 05:07 WBC 6.8 RBC 3.23 L Hgb 10.0 L Hct 30.4 MCV 94 MCH 31 MCHC 33 RDW 15.7 H Plt Count 111 L D Lymph % (Auto) 22.7 [place] % (Auto) 8.0 H Eos % (Auto) 2.3 Baso % (Auto) 0.4 Lymph # 1.6 [place] # 0.5 Eos # 0.2 Baso # 0.0 Seg Neutrophils % 66.6 Seg Neutrophils # 4.5 Pathologist Review Sodium Potassium Chloride Carbon Dioxide Anion Gap BUN Creatinine Estimated GFR BUN/Creatinine Ratio Glucose POC Glucose Calcium Phosphorus 3.40 Magnesium Total Bilirubin AST ALT Alkaline Phosphatase Total Protein Albumin Albumin/Globulin Ratio 10/20/18 10/20/18 10/20/18 05:07 10:44 12:22 WBC RBC Hgb Hct MCV MCH MCHC RDW Plt Count Lymph % (Auto) [place] % (Auto) Eos % (Auto) Baso % (Auto) Lymph # [place] # Eos # Baso # Seg Neutrophils % Seg Neutrophils # Pathologist Review Sodium 138 Potassium 3.8 D Chloride 98.4 Carbon Dioxide 25 Anion Gap 18 BUN 32 H Creatinine 3.2 H Estimated GFR 18 BUN/Creatinine Ratio 10 Glucose 177 H POC Glucose 160 H Calcium 8.0 L Phosphorus Magnesium 1.70 Total Bilirubin 0.50 AST 305 H ALT 728 H Alkaline Phosphatase 402 H Total Protein 6.0 L Albumin 2.9 L Albumin/Globulin Ratio 0.9 10/20/18 10/20/18 17:19 20:44 WBC RBC Hgb Hct MCV MCH MCHC RDW Plt Count Lymph % (Auto) [place] % (Auto) Eos % (Auto) Baso % (Auto) Lymph # [place] # Eos # Baso # Seg Neutrophils % Seg Neutrophils # Pathologist Review Sodium Potassium Chloride Carbon Dioxide Anion Gap BUN Creatinine Estimated GFR BUN/Creatinine Ratio Glucose POC Glucose 143 H 234 H Calcium Phosphorus Magnesium Total Bilirubin AST ALT Alkaline Phosphatase Total Protein Albumin Albumin/Globulin Ratio Medications & Allergies - Medications Allergies/Adverse Reactions: Allergies NSAIDS (Non-Steroidal Anti-Inflamma Adverse Reaction (Verified 01/02/17 05:56) Unknown Tetracyclines Adverse Reaction (Verified 09/26/14 12:09) Unknown Home Medications: Home Medications Medication Instructions Recorded Confirmed Last Taken Type RX: Ergocalciferol [Vitamin D2] 50,000 unit PO QWEEK capsule 09/25/16 10/17/18 Unknown Rx RX: Latanoprost 0.005% 1 drop OP QPM 01/02/17 10/17/18 Unknown History RX: Sodium Bicarbonate 325 mg PO DAILY 01/02/17 10/17/18 Unknown History RX: Clopidogrel [Plavix] 75 mg PO DAILY #30 tablet 01/08/17 10/17/18 Unknown Rx RX: Docusate Sodium [Colace CAP] 100 mg PO BID #60 capsule 01/08/17 10/17/18 Unknown Rx RX: Famotidine [Pepcid] 10 mg PO BID #60 tablet 01/08/17 10/17/18 Unknown Rx RX: Gabapentin [Neurontin] 300 mg PO QHS #30 capsule 01/08/17 10/17/18 Unknown Rx RX: Simvastatin [Zocor TAB] 20 mg PO QHS #60 tablet 01/08/17 10/17/18 Unknown Rx RX: glipiZIDE [Glucotrol] 5 mg PO QDDIAB #60 tablet 01/08/17 10/17/18 Unknown Rx RX: hydrALAZINE [Apresoline TAB] 10 mg PO Q8HR #90 tablet 01/08/17 10/17/18 Unknown Rx RX: levETIRAcetam [Keppra TAB] 500 mg PO BID #60 tablet 01/08/17 10/17/18 Unknown Rx Active Medications: Generic Name Dose Route Start Last Admin Trade Name Freq PRN Reason Stop Dose Admin Docusate Sodium 100 mg 10/17/18 22:00 10/20/18 22:24 Colace PO 100 mg BID ALLEY Administration Ergocalciferol 50,000 unit 10/24/18 10:00 Vitamin D2 PO Sa ALLEY Famotidine 20 mg 10/21/18 10:00 Pepcid PO DAILY ALLEY Gabapentin 300 mg 10/17/18 22:00 10/20/18 22:24 Neurontin PO 300 mg QHS ALLEY Administration Hydralazine HCl 10 mg 10/17/18 17:00 10/20/18 22:25 Apresoline PO Not Given Q8HR ALLEY Hydralazine HCl 10 mg 10/17/18 21:21 Apresoline IV Q4HR PRN Blood Pressure Sodium Chloride 100 mls @ 999 mls/hr 10/17/18 15:08 Nacl 0.9% IV LESLIE PRN Hypotension Insulin Human Lispro 0 unit 10/17/18 22:00 10/20/18 22:42 Humalog SUB-Q 3 unit ACHS ALLEY Administration Protocol Latanoprost 1 drops 10/17/18 18:00 10/20/18 18:12 Latanoprost 0.005% OU 1 drops QPM ALLEY Administration Levetiracetam 500 mg 10/21/18 10:00 Keppra PO BID ALLEY Metoprolol Tartrate 25 mg 10/20/18 22:00 10/20/18 22:24 Lopressor PO 25 mg BID ALLEY Administration Pravastatin Sodium 40 mg 10/17/18 22:00 10/20/18 22:23 Pravachol PO 40 mg QHS ALLEY Administration Sodium Bicarbonate 325 mg 10/17/18 17:00 10/20/18 10:37 Sodium Bicarbonate PO 325 mg DAILY ALLEY Administration
[2018-10-21] MEDS: APRESOLINE PO SCH ×3 (05:39→22:24)
[2018-10-21 06:47] LABS: Basophils % (Auto) 0.4 % (0.0-1.8); Eosinophils # (Auto) 0.1 K/mm3 (0.0-0.4); Hematocrit 29.9 % (30.3-42.9); Lymphocytes # (Auto) 1.2 K/mm3 (1.2-5.4); Lymphocytes % (Auto) 16.7 % (13.4-35.0); Mean Corpuscular HGB Conc 33 % (30-34); Mean Corpuscular Volume 95 fl (79-97); Monocytes # (Auto) 0.7 K/mm3 (0.0-0.8); Monocytes % (Auto) 9.6 % (0.0-7.3); Platelet Count 125 K/mm3 (140-440); Red Blood Count 3.16 M/mm3 (3.65-5.03); Red Cell Distribution Width 15.4 % (13.2-15.2)
[2018-10-21] MEDS: HumaLOG SUB-Q SCH ×4 (08:00→22:50)
[2018-10-21] MEDS: LOPRESSOR PO SCH ×2 (09:00→22:26)
--- NOTE | 2018-10-21 10:18 | Progress Note ---
Assessment and Plan Assessment and plan: Patient is a 63 yo woman with hypertension, dm type 2, gerd, cva, dementia, cad s/p cabg, seizure disorder, OA and CKD 4 (last Cr here was 2.2 on 01/08/2017) who presented to [facility] ED with AMS x 3 days. She was admitted for severe renal failure/uremic encephalopathy with hyperkalemia. Creatinine was found to be 5.6. She underwent emergent Hemodialysis. She was found after being alone in the house for two day a * CT head without contrast IMPRESSION: 1. Recent infarcts in the left MCA and left MEDICAL EDUCATOR territories. Although there is no volume loss associated with MEDICAL EDUCATOR infarct, the hypoattenuation of the parenchyma and loss of laboy-white differentiation is more conspicuous, suggesting this may be an older infarct. 2. No acute hemorrhage. Report of these findings was called to Dr. Novak in the emergency department at the time of dictation. Subacute CVA, -allergic to aspirin, need plavix, cannot give statin due to elevated LFTs embolic workup in progress, neurology consult Acute metabolic encephalopathy, poa:work up in process ARF/CKD 4 vasomotor +ATN: hemodialysis started Hyperkalemia: treat with HD, Prescription Eyeglass Maker following Glaucoma: continue latanoprost eyedrops Vitamin D deficiency: Continue vitamin D Hyperlipidemia: Continue statins Peripheral neuropathy: Continue gabapentin Seizure disorder: Continue Keppra Hypertension: Continue antihypertensives DVT prophylaxis: heparin and GI prophylaxis dispo; to snf, case dw with her sister Annabelle at [phone] History Interval history: Continues to have left-sided weakness Review of systems Constitutional: No fevers, CVS: No chest pain, no orthopnea, no dyspnea on exertion, no pedal edema GI: No abdominal pain, no diarrhea, no vomiting, no constipation Respiratory: no wheezing, no coughing Hospitalist Physical - Physical exam Narrative exam: General.: Appears chronically ill HEENT: Moist mucous membranes, extraocular muscles intact, no lymphadenopathy Neck: supple Cardiac: S1-S2 heard Lungs: clear to auscultation bilaterally Abdomen: soft , nontender, nondistended, bowel sounds positive Extremities: no edema clubbing or cyanosis Skin: no rash or lesions Neurologic: Left-sided weakness Psych: calm, and cooperative - Constitutional Vitals: Temp Pulse Resp BP Pulse Ox 98.0 F 72 18 105/69 100 10/21/18 08:26 10/21/18 08:26 10/21/18 08:26 10/21/18 08:26 10/21/18 08:26 General appearance: Present: no acute distress Results - Labs CBC & Chem 7: 10/24/18 04:50 10/25/18 11:31 Labs: Laboratory Last Values WBC 7.5 K/mm3 (4.5-11.0) 10/21/18 05:57 RBC 3.16 M/mm3 (3.65-5.03) L 10/21/18 05:57 Hgb 10.0 gm/dl (10.1-14.3) L 10/21/18 05:57 Hct 29.9 % (30.3-42.9) L 10/21/18 05:57 MCV 95 fl (79-97) 10/21/18 05:57 MCH 32 pg (28-32) 10/21/18 05:57 MCHC 33 % (30-34) 10/21/18 05:57 RDW 15.4 % (13.2-15.2) H 10/21/18 05:57 Plt Count 125 K/mm3 (140-440) L 10/21/18 05:57 Lymph % (Auto) 16.7 % (13.4-35.0) 10/21/18 05:57 [place] % (Auto) 9.6 % (0.0-7.3) H 10/21/18 05:57 Eos % (Auto) 2.0 % (0.0-4.3) 10/21/18 05:57 Baso % (Auto) 0.4 % (0.0-1.8) 10/21/18 05:57 Lymph # 1.2 K/mm3 (1.2-5.4) 10/21/18 05:57 [place] # 0.7 K/mm3 (0.0-0.8) 10/21/18 05:57 Eos # 0.1 K/mm3 (0.0-0.4) 10/21/18 05:57 Baso # 0.0 K/mm3 (0.0-0.1) 10/21/18 05:57 Add Manual Diff Complete 10/19/18 05:20 Total Counted 100 10/19/18 05:20 Seg Neutrophils % 71.3 % (40.0-70.0) H 10/21/18 05:57 Seg Neuts % (Manual) 67.0 % (40.0-70.0) 10/19/18 05:20 0 % 10/19/18 05:20 23.0 % (13.4-35.0) 10/19/18 05:20 Reactive Lymphs % (Man) 0 % 10/19/18 05:20 9.0 % (0.0-7.3) H 10/19/18 05:20 1.0 % (0.0-4.3) 10/19/18 05:20 0 % (0.0-1.8) 10/19/18 05:20 0 % 10/19/18 05:20 0 % 10/19/18 05:20 0 % 10/19/18 05:20 0 % 10/19/18 05:20 Nucleated RBC % 4.0 % (0.0-0.9) H 10/19/18 05:20 Seg Neutrophils # 5.3 K/mm3 (1.8-7.7) 10/21/18 05:57 Seg Neutrophils # Man 5.4 K/mm3 (1.8-7.7) 10/19/18 05:20 Band Neutrophils # 0.0 K/mm3 10/19/18 05:20 1.8 K/mm3 (1.2-5.4) 10/19/18 05:20 Abs React Lymphs (Man) 0.0 K/mm3 10/19/18 05:20 0.7 K/mm3 (0.0-0.8) 10/19/18 05:20 0.1 K/mm3 (0.0-0.4) 10/19/18 05:20 0.0 K/mm3 (0.0-0.1) 10/19/18 05:20 0.0 K/mm3 10/19/18 05:20 0.0 K/mm3 10/19/18 05:20 0.0 K/mm3 10/19/18 05:20 Blast Cells # 0.0 K/mm3 10/19/18 05:20 Pathologist Review 10/19/18 05:20 WBC Morphology Not Reportable 10/19/18 05:20 Hypersegmented Neuts Not Reportable 10/19/18 05:20 Hyposegmented Neuts Not Reportable 10/19/18 05:20 Hypogranular Neuts Not Reportable 10/19/18 05:20 Not Reportable 10/19/18 05:20 Not Reportable 10/19/18 05:20 Not Reportable 10/19/18 05:20 Not Reportable 10/19/18 05:20 Not Reportable 10/19/18 05:20 Not Reportable 10/19/18 05:20 Consistent w auto 10/19/18 05:20 Not Reportable 10/19/18 05:20 Plt Clumps, EDTA Not Reportable 10/19/18 05:20 Not Reportable 10/19/18 05:20 Not Reportable 10/19/18 05:20 Not Reportable 10/19/18 05:20 Plt Morphology Comment Not Reportable 10/19/18 05:20 RBC Morphology Not Reportable 10/19/18 05:20 Dimorphic RBCs Not Reportable 10/19/18 05:20 Not Reportable 10/19/18 05:20 Not Reportable 10/19/18 05:20 Not Reportable 10/19/18 05:20 1+ 10/19/18 05:20 Not Reportable 10/19/18 05:20 Not Reportable 10/19/18 05:20 Not Reportable 10/19/18 05:20 Not Reportable 10/19/18 05:20 Not Reportable 10/19/18 05:20 Not Reportable 10/19/18 05:20 Not Reportable 10/19/18 05:20 Not Reportable 10/19/18 05:20 Not Reportable 10/19/18 05:20 Not Reportable 10/19/18 05:20 Not Reportable 10/19/18 05:20 Not Reportable 10/19/18 05:20 Not Reportable 10/19/18 05:20 Not Reportable 10/19/18 05:20 Not Reportable 10/19/18 05:20 Acanthocytes (Spur) Not Reportable 10/19/18 05:20 Rouleaux Not Reportable 10/19/18 05:20 Not Reportable 10/19/18 05:20 Not Reportable 10/19/18 05:20 Not Reportable 10/19/18 05:20 Not Reportable 10/19/18 05:20 Hem Pathologist Commnt Sent to pathology 10/19/18 05:20 PT 20.6 Sec. (12.2-14.9) H 10/17/18 10:19 INR 1.81 (0.87-1.13) H 10/17/18 10:19 APTT 35.6 Sec. (24.2-36.6) 10/17/18 10:19 18.7 Sec. (15.1-19.6) 10/17/18 10:19 Sodium 139 mmol/L (137-145) 10/21/18 05:57 Potassium 4.1 mmol/L (3.6-5.0) 10/21/18 05:57 Chloride 98.6 mmol/L (98-107) 10/21/18 05:57 Carbon Dioxide 25 mmol/L (22-30) 10/21/18 05:57 20 mmol/L 10/21/18 05:57 BUN 47 mg/dL (7-17) H 10/21/18 05:57 4.9 mg/dL (0.7-1.2) H D 10/21/18 05:57 Estimated GFR 11 ml/min 10/21/18 05:57 10 % 10/21/18 05:57 Glucose 229 mg/dL (65-100) H 10/21/18 05:57 POC Glucose 239 (70-105) H 10/21/18 07:55 Calcium 8.0 mg/dL (8.4-10.2) L 10/21/18 05:57 Phosphorus 3.90 mg/dL (2.5-4.5) 10/21/18 05:57 Magnesium 1.70 mg/dL (1.7-2.3) 10/20/18 12:22 Iron 55 ug/dL (37-170) 10/19/18 08:34 TIBC 193 mcg/dL (250-450) L 10/19/18 08:34 2450.0 ng/mL (13.0-400.0) H 10/19/18 08:34 0.50 mg/dL (0.1-1.2) 10/20/18 05:07 AST 305 units/L (5-40) H 10/20/18 05:07 ALT 728 units/L (7-56) H 10/20/18 05:07 402 units/L (35-129) H 10/20/18 05:07 44.0 umol/L (25-60) 10/17/18 15:43 892 units/L (91-180) H 10/19/18 08:34 3216 units/L (30-135) H 10/17/18 15:15 4.720 ng/mL (0.00-0.029) H* 10/17/18 Unknown 6.0 g/dL (6.3-8.2) L 10/20/18 05:07 2.9 g/dL (3.9-5) L 10/20/18 05:07 0.9 % 10/20/18 05:07 Triglycerides 102 mg/dL (2-149) 10/17/18 Unknown Cholesterol 198 mg/dL (50-199) 10/17/18 Unknown 116 mg/dL (50-130) 10/17/18 Unknown 88 mg/dL (40-59) H 10/17/18 Unknown 2.25 % 10/17/18 Unknown Vitamin B12 1296 pg/mL (211-911) H 10/19/18 08:34 8.42 ng/mL (7.3-26.0) 10/19/18 08:34 TSH 1.030 mlU/mL (0.270-4.200) 10/17/18 Unknown Free T4 1.26 ng/dL (0.76-1.46) 10/17/18 Unknown Yellow (Yellow) 10/17/18 11:25 Slightly-cloudy (Clear) 10/17/18 11:25 5.0 (5.0-7.0) 10/17/18 11:25 Ur Specific [place] 1.019 (1.003-1.030) 10/17/18 11:25 100 mg/dl mg/dL (Negative) 10/17/18 11:25 150 mg/dL (Negative) 10/17/18 11:25 Tr mg/dL (Negative) 10/17/18 11:25 Sm (Negative) 10/17/18 11:25 Neg (Negative) 10/17/18 11:25 Neg (Negative) 10/17/18 11:25 < 2.0 mg/dL (<2.0) 10/17/18 11:25 Ur Leukocyte Esterase Tr (Negative) 10/17/18 11:25 3.0 /HPF (0.0-6.0) 10/17/18 11:25 2.0 /HPF (0.0-6.0) 10/17/18 11:25 Few /HPF 10/17/18 11:25 None seen (None Seen) 10/17/18 13:16 271.1 mg/dL (0.1-20.0) H 10/17/18 13:34 Protein/Creatinin Ratio 0.69 10/17/18 13:16 12 mmol/L 10/17/18 13:34 191 mg/dL (5-11.8) H 10/17/18 13:16 Salicylates < 0.3 mg/dL (2.8-20.0) L 10/17/18 Unknown Acetaminophen < 5.0 ug/mL (10.0-30.0) L 10/17/18 Unknown Plasma/Serum Alcohol < 0.01 % (0-0.07) 10/17/18 Unknown Hepatitis A IgM Ab Non-reactive (NonReactive) 10/17/18 15:15 Hep Bs Antigen Non-reactive (Negative) 10/17/18 15:15 Hep B Core IgM Ab Non-reactive (NonReactive) 10/17/18 15:15 Non-reactive (NonReactive) 10/17/18 15:15 Rare 10/17/18 15:43 Active Medications - Current Medications Current Medications: Generic Name Dose Route Start Last Admin Trade Name Freq PRN Reason Stop Dose Admin Clopidogrel Bisulfate 75 mg 10/21/18 11:00 Plavix PO QDAY [facility] Docusate Sodium 100 mg 10/17/18 22:00 10/20/18 22:24 Colace PO 100 mg BID ALLEY Administration Ergocalciferol 50,000 unit 10/24/18 10:00 Vitamin D2 PO Sa ALLEY Famotidine 20 mg 10/21/18 10:00 Pepcid PO DAILY ALLEY Gabapentin 300 mg 10/17/18 22:00 10/20/18 22:24 Neurontin PO 300 mg QHS ALLEY Administration Hydralazine HCl 10 mg 10/17/18 17:00 10/21/18 05:39 Apresoline PO Not Given Q8HR ALLEY Hydralazine HCl 10 mg 10/17/18 21:21 Apresoline IV Q4HR PRN Blood Pressure Sodium Chloride 100 mls @ 999 mls/hr 10/17/18 15:08 Nacl 0.9% IV LESLIE PRN Hypotension Insulin Human Lispro 0 unit 10/17/18 22:00 10/20/18 22:42 Humalog SUB-Q 3 unit ACHS ALLEY Administration Protocol Latanoprost 1 drops 10/17/18 18:00 10/20/18 18:12 Latanoprost 0.005% OU 1 drops QPM ALLEY Administration Levetiracetam 500 mg 10/21/18 10:00 Keppra PO BID ALLEY Metoprolol Tartrate 25 mg 10/20/18 22:00 10/20/18 22:24 Lopressor PO 25 mg BID ALLEY Administration Pravastatin Sodium 40 mg 10/17/18 22:00 10/20/18 22:23 Pravachol PO 40 mg QHS ALLEY Administration Sodium Bicarbonate 325 mg 10/17/18 17:00 10/20/18 10:37 Sodium Bicarbonate PO 325 mg DAILY ALLEY Administration Nutrition/Malnutrition Assess - Dietary Evaluation Nutrition/Malnutrition Findings: Nutrition Notes Start: 10/18/18 14:28 Freq: Status: Active Protocol: Document 10/18/18 14:28 RM (Rec: 10/18/18 14:36 RM [id number]) Nutrition Notes Need for Assessment generated from: MD Order Initial or Follow up Assessment Current Diagnosis Acute Kidney Injury,CKD(stage I-IV),Coronary Artery Disease, Diabetes,Hypertension,Stroke, Hyperlipidemia Other Pertinent Diagnosis Hx CVA, Acute encephalopathy Current Diet NPO Labs/Tests K 6.6 (10/17/18) Pertinent Medications Reviewed Height 5 ft 2 in Weight 68.039 kg [place] Body Weight (kg) 50.00 BMI 27.4 Subjective/Other Information Consulted for ONS diet. Screened for difficulty chewing. Swallow evaluation ordered. Pt asleep at time of visit. No temporal or orbital wasting . Percent of energy/protein needs met: 0%/0% Burn Absent Trauma Absent #1 Nutrition Diagnosis Inadequate oral intake Etiology CVA As Evidenced by Signs and Symptoms NPO status Is patient on ventilator? No Is Patient Ambulatory and/or Out of Bed No REE-([facility]-confined to bed) 1431.600 Calculation Used for Recommendations [facility] Additional Notes Protein Needs: 54-68g (0.8-1g/ kg) Fluid Needs: 1 ml/kcal Nutrition Intervention Change Diet Order: Per ST Add Supplement/Snack (indicate name/kcal Nepro 1 daily once diet /protein ) advanced Provides kCal: 425 Provides Protein (gm) 19 Goal #[address] recommendation Anticipated Discharge Needs: Unable to determine at this time Follow-Up By: 10/21/18 Additional Comments Follow for PO and ONS intakes
--- NOTE | 2018-10-21 11:54 | Progress Note ---
<BENITEZ ACOSTA - Last Filed: 10/21/18 11:50> Assessment and Plan Acute CVA -initiated on plavix (NSAIDS allergy) Altered mental status Left Pleural effusion Chronic kidney disease initiated on dialysis Elevated liver enzymes Thrombocytopenia Hypertension Diabetes Hx of CAD with prior CABG paroxysmal NSVT TSH is normal No ischemia by MPI 04/2016. Normal LVEF 50-55% by echo 09/2016. A repeat echocardiogram revealed right heart enlargement with a severely decreased left ventricular systolic function, EF 10-15%. The duration of this cardiomyopathy is uncertain. Recommend: Medical therapy for dilated cardiomyopathy and coronary artery disease as her blood pressure will allow. Otherwise, conservative cardiac management. Subjective Date of service: 10/21/18 Principal diagnosis: low plt Interval history: No cardiac events reported overnight. Objective Vital Signs Temp Pulse Resp BP BP Pulse Ox 10/21/18 08:26 98.0 F 72 18 105/69 100 10/21/18 05:39 97/61 10/21/18 04:00 98.5 F 71 20 97/61 94 10/21/18 00:00 96 10/20/18 23:32 98.9 F 85 19 110/75 87 10/20/18 22:24 85 10/20/18 19:43 66.5 F L 85 20 103/66 100 10/20/18 17:12 98.7 F 74 18 95/65 90 - Physical Examination General: No Apparent Distress Neck: Positive: trachea midline Cardiac: Positive: Reg Rate and Rhythm Lungs: Positive: Decreased Breath Sounds Neuro: Positive: Grossly Intact Extremities: Absent: edema - Labs and Meds CBC 10/21/18 Range/Units 05:57 WBC 7.5 (4.5-11.0) K/mm3 RBC 3.16 L (3.65-5.03) M/mm3 Hgb 10.0 L (10.1-14.3) gm/dl Hct 29.9 L (30.3-42.9) % Plt Count 125 L (140-440) K/mm3 Lymph # 1.2 (1.2-5.4) K/mm3 [place] # 0.7 (0.0-0.8) K/mm3 Eos # 0.1 (0.0-0.4) K/mm3 Baso # 0.0 (0.0-0.1) K/mm3 Comprehensive Metabolic Panel 10/21/18 Range/Units 05:57 Sodium 139 (137-145) mmol/L Potassium 4.1 (3.6-5.0) mmol/L Chloride 98.6 (98-107) mmol/L Carbon Dioxide 25 (22-30) mmol/L BUN 47 H (7-17) mg/dL Creatinine 4.9 H D (0.7-1.2) mg/dL Glucose 229 H (65-100) mg/dL Calcium 8.0 L (8.4-10.2) mg/dL <KAREEM SUNG - Last Filed: 10/21/18 12:57> Assessment and Plan I have seen and evaluated the patient and agree with the assessment and plan. Patient had a previous echo showing normal LV function with EF 50-55%. Echo done this admission now shows dilated cardiomyopathy with EF 10-15%. Start medical therapy with BB, ACEi and statin. Objective Vital Signs Temp Pulse Resp BP BP Pulse Ox 10/21/18 08:26 98.0 F 72 18 105/69 100 10/21/18 05:39 97/61 10/21/18 04:00 98.5 F 71 20 97/61 94 10/21/18 00:00 96 10/20/18 23:32 98.9 F 85 19 110/75 87 10/20/18 22:24 85 10/20/18 19:43 66.5 F L 85 20 103/66 100 10/20/18 17:12 98.7 F 74 18 95/65 90 - Labs and Meds CBC 10/21/18 Range/Units 05:57 WBC 7.5 (4.5-11.0) K/mm3 RBC 3.16 L (3.65-5.03) M/mm3 Hgb 10.0 L (10.1-14.3) gm/dl Hct 29.9 L (30.3-42.9) % Plt Count 125 L (140-440) K/mm3 Lymph # 1.2 (1.2-5.4) K/mm3 [place] # 0.7 (0.0-0.8) K/mm3 Eos # 0.1 (0.0-0.4) K/mm3 Baso # 0.0 (0.0-0.1) K/mm3 Comprehensive Metabolic Panel 10/21/18 Range/Units 05:57 Sodium 139 (137-145) mmol/L Potassium 4.1 (3.6-5.0) mmol/L Chloride 98.6 (98-107) mmol/L Carbon Dioxide 25 (22-30) mmol/L BUN 47 H (7-17) mg/dL Creatinine 4.9 H D (0.7-1.2) mg/dL Glucose 229 H (65-100) mg/dL Calcium 8.0 L (8.4-10.2) mg/dL
--- NOTE | 2018-10-21 12:43 | Vascular Lab Report ---
BILATERAL CAROTID DOPPLER ULTRASOUND INDICATION : cva TECHNIQUE: Grayscale and color Doppler imaging performed through the neck. COMPARISON: 01/02/2017 FINDINGS: Right: There is mild to moderate calcific plaques at the carotid bifurcation. Peak systolic velocit y in the CCA is 55 cm/s with end-diastolic velocity of 9 cm/s. Peak systolic velocity in the proximal ICA is 45 cm/s with end-diastolic velocity of 20 cm/s. ICA to CCA ratio is less than 2. There is ant egrade flow in the ECA and the vertebral artery. Left: There is mild to moderate calcific plaques at the carotid bifurcation. Peak systolic velocity i n the CCA is 53 cm/s with end-diastolic velocity of 12 cm/s. Peak systolic velocity in the proximal I CA is 62 cm/s with end-diastolic velocity of 26 cm/s. ICA to CCA ratio is less than 2. There is anteg rade flow in the ECA and the vertebral artery. IMPRESSION: No hemodynamically significant stenosis by NASCET criteria. Less than 50% diameter reduct ion in the internal carotid arteries bilaterally. No significant change since 2017. Signer Name: Bakari Tobin Jr, MD Signed: 10/21/2018 12:39 PM Workstation Name: [id number]
--- NOTE | 2018-10-21 13:56 | Progress Note ---
Assessment and Plan Acute renal failure on chronic kidney disease stage III/IV AG metabolic acidosis Hyperkalemia Metabolic encephalopathy CVA - Renal function reviewed. Serum creatinine 4.9 today, yesterday's was 3.2 - Hemodialysis today for clearance and gentle UF - Reordered 24 hour urine collection for creatinine clearance - Scott catheter in place for accurate collection. - Urine eosinophils were negative - Renal US- negative for obstruction - Renally dose medications - Strict I&O monitoring - Obtain daily weights - Assess dialysis needs daily and monitor signs of renal recovery Subjective Date of service: 10/21/18 Principal diagnosis: low plt Interval history: Patient seen sleeping in bed. Family friend at bedside who states patient has been in and out of sleep. Objective - Vital Signs Vital signs: Vital Signs - 12hr 10/21/18 10/21/18 10/21/18 04:00 05:39 08:26 Temperature 98.5 F 98.0 F Pulse Rate 71 72 Respiratory 20 18 Rate Blood Pressure 97/61 105/69 Blood Pressure 97/61 [Left] O2 Sat by Pulse 94 100 Oximetry 10/21/18 12:43 Temperature 97.6 F Pulse Rate Respiratory 18 Rate Blood Pressure 97/64 Blood Pressure [Left] O2 Sat by Pulse Oximetry - General Appearance General appearance: fatigue, other (Lethargic) EENT: ATNC Neck: no JVD, supple Respiratory: Present: Decreased Breath Sounds Cardiology: S1S2 Gastrointestinal: normoactive bowel sounds Integumentary: warm and dry Neurologic: other (Lethargic) Musculoskeletal: other (none) - Lab 10/21/18 05:57 10/21/18 05:57 Most recent lab results Calcium 8.0 mg/dL (8.4-10.2) L 10/21/18 05:57 Phosphorus 3.90 mg/dL (2.5-4.5) 10/21/18 05:57 Magnesium 1.70 mg/dL (1.7-2.3) 10/20/18 12:22 271.1 mg/dL (0.1-20.0) H 10/17/18 13:34 12 mmol/L 10/17/18 13:34 191 mg/dL (5-11.8) H 10/17/18 13:16 Medications & Allergies - Medications Allergies/Adverse Reactions: Allergies NSAIDS (Non-Steroidal Anti-Inflamma Adverse Reaction (Verified 01/02/17 05:56) Unknown Tetracyclines Adverse Reaction (Verified 09/26/14 12:09) Unknown Home Medications: Home Medications Medication Instructions Recorded Confirmed Last Taken Type Ergocalciferol [Vitamin D2] 50,000 unit PO QWEEK capsule 09/25/16 10/17/18 Unknown Rx Latanoprost 0.005% 1 drop OP QPM 01/02/17 10/17/18 Unknown History Sodium Bicarbonate 325 mg PO DAILY 01/02/17 10/17/18 Unknown History Clopidogrel [Plavix] 75 mg PO DAILY #30 tablet 01/08/17 10/17/18 Unknown Rx Docusate Sodium [Colace CAP] 100 mg PO BID #60 capsule 01/08/17 10/17/18 Unknown Rx Famotidine [Pepcid] 10 mg PO BID #60 tablet 01/08/17 10/17/18 Unknown Rx Gabapentin [Neurontin] 300 mg PO QHS #30 capsule 01/08/17 10/17/18 Unknown Rx Simvastatin [Zocor TAB] 20 mg PO QHS #60 tablet 01/08/17 10/17/18 Unknown Rx glipiZIDE [Glucotrol] 5 mg PO QDDIAB #60 tablet 01/08/17 10/17/18 Unknown Rx hydrALAZINE [Apresoline TAB] 10 mg PO Q8HR #90 tablet 01/08/17 10/17/18 Unknown Rx levETIRAcetam [Keppra TAB] 500 mg PO BID #60 tablet 01/08/17 10/17/18 Unknown Rx Active Medications: Generic Name Dose Route Start Last Admin Trade Name Erich GIMENEZN Reason Stop Dose Admin Clopidogrel Bisulfate 75 mg 10/21/18 11:00 Plavix PO QDAY ALLEY Docusate Sodium 100 mg 10/17/18 22:00 10/20/18 22:24 Colace PO 100 mg BID ALLEY Administration Ergocalciferol 50,000 unit 10/24/18 10:00 Vitamin D2 PO Sa ALLEY Famotidine 20 mg 10/21/18 10:00 Pepcid PO DAILY ALLEY Gabapentin 300 mg 10/17/18 22:00 10/20/18 22:24 Neurontin PO 300 mg QHS ALLEY Administration Hydralazine HCl 10 mg 10/17/18 17:00 10/21/18 05:39 Apresoline PO Not Given Q8HR ALLEY Hydralazine HCl 10 mg 10/17/18 21:21 Apresoline IV Q4HR PRN Blood Pressure Sodium Chloride 100 mls @ 999 mls/hr 10/17/18 15:08 Nacl 0.9% IV LESLIE PRN Hypotension Insulin Human Lispro 0 unit 10/17/18 22:00 10/20/18 22:42 Humalog SUB-Q 3 unit ACHS ALLEY Administration Protocol Latanoprost 1 drops 10/17/18 18:00 10/20/18 18:12 Latanoprost 0.005% OU 1 drops QPM ALLEY Administration Levetiracetam 500 mg 10/21/18 10:00 Keppra PO BID ALLEY Metoprolol Tartrate 25 mg 10/20/18 22:00 10/21/18 09:00 Lopressor PO Not Given BID ALLEY Sodium Bicarbonate 325 mg 10/17/18 17:00 10/20/18 10:37 Sodium Bicarbonate PO 325 mg DAILY ALLEY Administration
--- NOTE | 2018-10-21 14:37 | Progress Note ---
Assessment and Plan Assessment and plan: Patient is a 63 yo woman with hypertension, dm type 2, gerd, cva, dementia, cad s/p cabg, seizure disorder, OA and CKD 4 (last Cr here was 2.2 on 01/08/2017) who presented to [facility] with AMS x 3 days. She was admitted for severe renal failure/uremic encephalopathy with hyperkalemia. Creatinine was found to be 5.6. She underwent emergent Hemodialysis. She was found after being alone in the house for two day a * CT head without contrast IMPRESSION: 1. Recent infarcts in the left MCA and left TENNIS COACH territories. Although there is no volume loss associated with TENNIS COACH infarct, the hypoattenuation of the parenchyma and loss of laboy-white differentiation is more conspicuous, suggesting this may be an older infarct. 2. No acute hemorrhage. Report of these findings was called to Dr. Noavk in the emergency department at the time of dictation. Subacute CVA, -allergic to aspirin, need plavix, cannot give statin due to elevated LFTs embolic workup in progress, neurology consult Acute metabolic encephalopathy, improving, likely due to TUNDE and cva ARF/CKD 4 vasomotor +ATN: continue HD watch for signs of renal recovery Hyperkalemia: improved with HD Hx of cad, sp cabg. new onset systolic chf -Wide complex tachycardia -med mgt per cardiology, maintain electrolytes with HD to prevent further arrythmias -had normal EF in 2017, now has EF of 15% Glaucoma: continue latanoprost eyedrops Vitamin D deficiency: Continue vitamin D Hyperlipidemia: Continue statins Peripheral neuropathy: Continue gabapentin Seizure disorder: Continue Keppra Hypertension: Continue antihypertensives DVT prophylaxis: heparin and GI prophylaxis dispo; to snf, case dw with her sister Annabelle at [phone] History Interval history: Continues to have left-sided weakness Review of systems Constitutional: No fevers, CVS: No chest pain, no orthopnea, no dyspnea on exertion, no pedal edema GI: No abdominal pain, no diarrhea, no vomiting, no constipation Respiratory: no wheezing, no coughing Hospitalist Physical - Physical exam Narrative exam: General.: Appears chronically ill HEENT: Moist mucous membranes, extraocular muscles intact, no lymphadenopathy Neck: supple Cardiac: S1-S2 heard Lungs: clear to auscultation bilaterally Abdomen: soft , nontender, nondistended, bowel sounds positive Extremities: no edema clubbing or cyanosis Skin: no rash or lesions Neurologic: Left-sided weakness Psych: calm, and cooperative - Constitutional Vitals: Temp Pulse Resp BP Pulse Ox 97.6 F 72 18 97/64 100 10/21/18 12:43 10/21/18 08:26 10/21/18 12:43 10/21/18 12:43 10/21/18 08:26 General appearance: Present: no acute distress Results - Labs CBC & Chem 7: 10/24/18 04:50 10/25/18 11:31 Labs: Laboratory Last Values WBC 7.5 K/mm3 (4.5-11.0) 10/21/18 05:57 RBC 3.16 M/mm3 (3.65-5.03) L 10/21/18 05:57 Hgb 10.0 gm/dl (10.1-14.3) L 10/21/18 05:57 Hct 29.9 % (30.3-42.9) L 10/21/18 05:57 MCV 95 fl (79-97) 10/21/18 05:57 MCH 32 pg (28-32) 10/21/18 05:57 MCHC 33 % (30-34) 10/21/18 05:57 RDW 15.4 % (13.2-15.2) H 10/21/18 05:57 Plt Count 125 K/mm3 (140-440) L 10/21/18 05:57 Lymph % (Auto) 16.7 % (13.4-35.0) 10/21/18 05:57 [place] % (Auto) 9.6 % (0.0-7.3) H 10/21/18 05:57 Eos % (Auto) 2.0 % (0.0-4.3) 10/21/18 05:57 Baso % (Auto) 0.4 % (0.0-1.8) 10/21/18 05:57 Lymph # 1.2 K/mm3 (1.2-5.4) 10/21/18 05:57 [place] # 0.7 K/mm3 (0.0-0.8) 10/21/18 05:57 Eos # 0.1 K/mm3 (0.0-0.4) 10/21/18 05:57 Baso # 0.0 K/mm3 (0.0-0.1) 10/21/18 05:57 Add Manual Diff Complete 10/19/18 05:20 Total Counted 100 10/19/18 05:20 Seg Neutrophils % 71.3 % (40.0-70.0) H 10/21/18 05:57 Seg Neuts % (Manual) 67.0 % (40.0-70.0) 10/19/18 05:20 0 % 10/19/18 05:20 23.0 % (13.4-35.0) 10/19/18 05:20 Reactive Lymphs % (Man) 0 % 10/19/18 05:20 9.0 % (0.0-7.3) H 10/19/18 05:20 1.0 % (0.0-4.3) 10/19/18 05:20 0 % (0.0-1.8) 10/19/18 05:20 0 % 10/19/18 05:20 0 % 10/19/18 05:20 0 % 10/19/18 05:20 0 % 10/19/18 05:20 Nucleated RBC % 4.0 % (0.0-0.9) H 10/19/18 05:20 Seg Neutrophils # 5.3 K/mm3 (1.8-7.7) 10/21/18 05:57 Seg Neutrophils # Man 5.4 K/mm3 (1.8-7.7) 10/19/18 05:20 Band Neutrophils # 0.0 K/mm3 10/19/18 05:20 1.8 K/mm3 (1.2-5.4) 10/19/18 05:20 Abs React Lymphs (Man) 0.0 K/mm3 10/19/18 05:20 0.7 K/mm3 (0.0-0.8) 10/19/18 05:20 0.1 K/mm3 (0.0-0.4) 10/19/18 05:20 0.0 K/mm3 (0.0-0.1) 10/19/18 05:20 0.0 K/mm3 10/19/18 05:20 0.0 K/mm3 10/19/18 05:20 0.0 K/mm3 10/19/18 05:20 Blast Cells # 0.0 K/mm3 10/19/18 05:20 Pathologist Review 10/19/18 05:20 WBC Morphology Not Reportable 10/19/18 05:20 Hypersegmented Neuts Not Reportable 10/19/18 05:20 Hyposegmented Neuts Not Reportable 10/19/18 05:20 Hypogranular Neuts Not Reportable 10/19/18 05:20 Not Reportable 10/19/18 05:20 Not Reportable 10/19/18 05:20 Not Reportable 10/19/18 05:20 Not Reportable 10/19/18 05:20 Not Reportable 10/19/18 05:20 Not Reportable 10/19/18 05:20 Consistent w auto 10/19/18 05:20 Not Reportable 10/19/18 05:20 Plt Clumps, EDTA Not Reportable 10/19/18 05:20 Not Reportable 10/19/18 05:20 Not Reportable 10/19/18 05:20 Not Reportable 10/19/18 05:20 Plt Morphology Comment Not Reportable 10/19/18 05:20 RBC Morphology Not Reportable 10/19/18 05:20 Dimorphic RBCs Not Reportable 10/19/18 05:20 Not Reportable 10/19/18 05:20 Not Reportable 10/19/18 05:20 Not Reportable 10/19/18 05:20 1+ 10/19/18 05:20 Not Reportable 10/19/18 05:20 Not Reportable 10/19/18 05:20 Not Reportable 10/19/18 05:20 Not Reportable 10/19/18 05:20 Not Reportable 10/19/18 05:20 Not Reportable 10/19/18 05:20 Not Reportable 10/19/18 05:20 Not Reportable 10/19/18 05:20 Not Reportable 10/19/18 05:20 Not Reportable 10/19/18 05:20 Not Reportable 10/19/18 05:20 Not Reportable 10/19/18 05:20 Not Reportable 10/19/18 05:20 Not Reportable 10/19/18 05:20 Not Reportable 10/19/18 05:20 Acanthocytes (Spur) Not Reportable 10/19/18 05:20 Rouleaux Not Reportable 10/19/18 05:20 Not Reportable 10/19/18 05:20 Not Reportable 10/19/18 05:20 Not Reportable 10/19/18 05:20 Not Reportable 10/19/18 05:20 Hem Pathologist Commnt Sent to pathology 10/19/18 05:20 PT 20.6 Sec. (12.2-14.9) H 10/17/18 10:19 INR 1.81 (0.87-1.13) H 10/17/18 10:19 APTT 35.6 Sec. (24.2-36.6) 10/17/18 10:19 18.7 Sec. (15.1-19.6) 10/17/18 10:19 Sodium 139 mmol/L (137-145) 10/21/18 05:57 Potassium 4.1 mmol/L (3.6-5.0) 10/21/18 05:57 Chloride 98.6 mmol/L (98-107) 10/21/18 05:57 Carbon Dioxide 25 mmol/L (22-30) 10/21/18 05:57 20 mmol/L 10/21/18 05:57 BUN 47 mg/dL (7-17) H 10/21/18 05:57 4.9 mg/dL (0.7-1.2) H D 10/21/18 05:57 Estimated GFR 11 ml/min 10/21/18 05:57 10 % 10/21/18 05:57 Glucose 229 mg/dL (65-100) H 10/21/18 05:57 POC Glucose 446 (70-105) H 10/21/18 12:05 Calcium 8.0 mg/dL (8.4-10.2) L 10/21/18 05:57 Phosphorus 3.90 mg/dL (2.5-4.5) 10/21/18 05:57 Magnesium 1.70 mg/dL (1.7-2.3) 10/20/18 12:22 Iron 55 ug/dL (37-170) 10/19/18 08:34 TIBC 193 mcg/dL (250-450) L 10/19/18 08:34 2450.0 ng/mL (13.0-400.0) H 10/19/18 08:34 0.50 mg/dL (0.1-1.2) 10/20/18 05:07 AST 305 units/L (5-40) H 10/20/18 05:07 ALT 728 units/L (7-56) H 10/20/18 05:07 402 units/L (35-129) H 10/20/18 05:07 44.0 umol/L (25-60) 10/17/18 15:43 892 units/L (91-180) H 10/19/18 08:34 3216 units/L (30-135) H 10/17/18 15:15 4.720 ng/mL (0.00-0.029) H* 10/17/18 Unknown 6.0 g/dL (6.3-8.2) L 10/20/18 05:07 2.9 g/dL (3.9-5) L 10/20/18 05:07 0.9 % 10/20/18 05:07 Triglycerides 102 mg/dL (2-149) 10/17/18 Unknown Cholesterol 198 mg/dL (50-199) 10/17/18 Unknown 116 mg/dL (50-130) 10/17/18 Unknown 88 mg/dL (40-59) H 10/17/18 Unknown 2.25 % 10/17/18 Unknown Vitamin B12 1296 pg/mL (211-911) H 10/19/18 08:34 8.42 ng/mL (7.3-26.0) 10/19/18 08:34 TSH 1.030 mlU/mL (0.270-4.200) 10/17/18 Unknown Free T4 1.26 ng/dL (0.76-1.46) 10/17/18 Unknown Yellow (Yellow) 10/17/18 11:25 Slightly-cloudy (Clear) 10/17/18 11:25 5.0 (5.0-7.0) 10/17/18 11:25 Ur Specific [place] 1.019 (1.003-1.030) 10/17/18 11:25 100 mg/dl mg/dL (Negative) 10/17/18 11:25 150 mg/dL (Negative) 10/17/18 11:25 Tr mg/dL (Negative) 10/17/18 11:25 Sm (Negative) 10/17/18 11:25 Neg (Negative) 10/17/18 11:25 Neg (Negative) 10/17/18 11:25 < 2.0 mg/dL (<2.0) 10/17/18 11:25 Ur Leukocyte Esterase Tr (Negative) 10/17/18 11:25 3.0 /HPF (0.0-6.0) 10/17/18 11:25 2.0 /HPF (0.0-6.0) 10/17/18 11:25 Few /HPF 10/17/18 11:25 None seen (None Seen) 10/17/18 13:16 271.1 mg/dL (0.1-20.0) H 10/17/18 13:34 Protein/Creatinin Ratio 0.69 10/17/18 13:16 12 mmol/L 10/17/18 13:34 191 mg/dL (5-11.8) H 10/17/18 13:16 Salicylates < 0.3 mg/dL (2.8-20.0) L 10/17/18 Unknown Acetaminophen < 5.0 ug/mL (10.0-30.0) L 10/17/18 Unknown Plasma/Serum Alcohol < 0.01 % (0-0.07) 10/17/18 Unknown Hepatitis A IgM Ab Non-reactive (NonReactive) 10/17/18 15:15 Hep Bs Antigen Non-reactive (Negative) 10/17/18 15:15 Hep B Core IgM Ab Non-reactive (NonReactive) 10/17/18 15:15 Non-reactive (NonReactive) 10/17/18 15:15 Rare 10/17/18 15:43 Active Medications - Current Medications Current Medications: Generic Name Dose Route Start Last Admin Trade Name Freq PRN Reason Stop Dose Admin Clopidogrel Bisulfate 75 mg 10/21/18 11:00 Plavix PO QDAY [facility] Docusate Sodium 100 mg 10/17/18 22:00 10/20/18 22:24 Colace PO 100 mg BID ALLEY Administration Ergocalciferol 50,000 unit 10/24/18 10:00 Vitamin D2 PO Sa [facility] Famotidine 20 mg 10/21/18 10:00 Pepcid PO DAILY [facility] Gabapentin 300 mg 10/17/18 22:00 10/20/18 22:24 Neurontin PO 300 mg QHS ALLEY Administration Hydralazine HCl 10 mg 10/17/18 17:00 10/21/18 05:39 Apresoline PO Not Given Q8HR ALLEY Hydralazine HCl 10 mg 10/17/18 21:21 Apresoline IV Q4HR PRN Blood Pressure Sodium Chloride 100 mls @ 999 mls/hr 10/17/18 15:08 Nacl 0.9% IV LESLIE PRN Hypotension Insulin Human Lispro 0 unit 10/17/18 22:00 10/20/18 22:42 Humalog SUB-Q 3 unit ACHS ALLEY Administration Protocol Latanoprost 1 drops 10/17/18 18:00 10/20/18 18:12 Latanoprost 0.005% OU 1 drops QPM ALLEY Administration Levetiracetam 500 mg 10/21/18 10:00 Keppra PO BID ALLEY Metoprolol Tartrate 25 mg 10/20/18 22:00 10/21/18 09:00 Lopressor PO Not Given BID ALLEY Sodium Bicarbonate 325 mg 10/17/18 17:00 10/20/18 10:37 Sodium Bicarbonate PO 325 mg DAILY ALLEY Administration Nutrition/Malnutrition Assess - Dietary Evaluation Nutrition/Malnutrition Findings: Nutrition Notes Start: 10/18/18 14:28 Freq: Status: Active Protocol: Document 10/18/18 14:28 RM (Rec: 10/18/18 14:36 RM [id number]) Nutrition Notes Need for Assessment generated from: MD Order Initial or Follow up Assessment Current Diagnosis Acute Kidney Injury,CKD(stage I-IV),Coronary Artery Disease, Diabetes,Hypertension,Stroke, Hyperlipidemia Other Pertinent Diagnosis Hx CVA, Acute encephalopathy Current Diet NPO Labs/Tests K 6.6 (10/17/18) Pertinent Medications Reviewed Height 5 ft 2 in Weight 68.039 kg [place] Body Weight (kg) 50.00 BMI 27.4 Subjective/Other Information Consulted for ONS diet. Screened for difficulty chewing. Swallow evaluation ordered. Pt asleep at time of visit. No temporal or orbital wasting . Percent of energy/protein needs met: 0%/0% Burn Absent Trauma Absent #1 Nutrition Diagnosis Inadequate oral intake Etiology CVA As Evidenced by Signs and Symptoms NPO status Is patient on ventilator? No Is Patient Ambulatory and/or Out of Bed No REE-([facility]-confined to bed) 1431.600 Calculation Used for Recommendations [place] Additional Notes Protein Needs: 54-68g (0.8-1g/ kg) Fluid Needs: 1 ml/kcal Nutrition Intervention Change Diet Order: Per ST Add Supplement/Snack (indicate name/kcal Nepro 1 daily once diet /protein ) advanced Provides kCal: 425 Provides Protein (gm) 19 Goal #[address] recommendation Anticipated Discharge Needs: Unable to determine at this time Follow-Up By: 10/21/18 Additional Comments Follow for PO and ONS intakes
[2018-10-21 15:28] LABS: Heparin-Induced Platelet Antib Negative (Negative); Unfractionated Heparin Negative (Negative)
--- NOTE | 2018-10-21 15:31 | Consultation ---
History of Present Illness Consult date: 10/21/18 Reason for Consult: Stroke Chief complaint: Stroke History of present illness: Patient is a 63-year-old woman with a history of hypertension, diabetes mellitus, GERD, history of previous stroke with residual dementia, coronary artery disease status post CABG, history of seizures, chronic kidney disease. Patient was admitted October 17, with symptoms of change in mental status for 2-3 days prior to admission. The patient lives with her sister, and has part-time caretakers help out during the day. Per discussion with her sister, the patient is verbal at baseline, however is dependent in most ADLs such as feeding, changing clothes, bathing. Patient has notable cognitive impairment at baseline. Patient was noted to have left-sided weakness approximately 1-2 days prior to admission. MRI done reveals bilateral areas of acute infarcts. TPA was not given, and from ectomy was not offered, as patient was felt to be outside of the window when previously evaluated by neurology during this admission. Per the patient's sister, she is not consistently taking her medications in the past several months. During course of admission, she is found to have severe renal failure, uremic encephalopathy, hyperkalemia, and had to have emergent hemodialysis. There has not been much change in mental status since admission, per chart review. Past History Past Medical History: other (hypertension, diabetes mellitus, GERD, history of previous stroke with residual dementia, coronary artery disease status post CABG, history of seizures, chronic kidney disease) Social history: lives with family Family history: no significant family history Medications and Allergies Allergies Allergy/AdvReac Type Severity Reaction Status Date / Time NSAIDS (Non-Steroidal AdvReac Unknown Verified 01/02/17 05:56 Anti-Inflamma Tetracyclines AdvReac Unknown Verified 09/26/14 12:09 Home Medications Medication Instructions Recorded Confirmed Last Taken Type Ergocalciferol [Vitamin D2] 50,000 unit PO QWEEK capsule 09/25/16 10/17/18 Unknown Rx Latanoprost 0.005% 1 drop OP QPM 01/02/17 10/17/18 Unknown History Sodium Bicarbonate 325 mg PO DAILY 01/02/17 10/17/18 Unknown History Clopidogrel [Plavix] 75 mg PO DAILY #30 tablet 01/08/17 10/17/18 Unknown Rx Docusate Sodium [Colace CAP] 100 mg PO BID #60 capsule 01/08/17 10/17/18 Unknown Rx Famotidine [Pepcid] 10 mg PO BID #60 tablet 01/08/17 10/17/18 Unknown Rx Gabapentin [Neurontin] 300 mg PO QHS #30 capsule 01/08/17 10/17/18 Unknown Rx Simvastatin [Zocor TAB] 20 mg PO QHS #60 tablet 01/08/17 10/17/18 Unknown Rx glipiZIDE [Glucotrol] 5 mg PO QDDIAB #60 tablet 01/08/17 10/17/18 Unknown Rx hydrALAZINE [Apresoline TAB] 10 mg PO Q8HR #90 tablet 01/08/17 10/17/18 Unknown Rx levETIRAcetam [Keppra TAB] 500 mg PO BID #60 tablet 01/08/17 10/17/18 Unknown Rx Active Meds: Active Medications Clopidogrel Bisulfate (Plavix) 75 mg PO QDAY [facility] Docusate Sodium (Colace) 100 mg PO BID [facility] Last Admin: 10/20/18 22:24 Dose: 100 mg Documented by: Ergocalciferol (Vitamin D2) 50,000 unit PO Sa [facility] Famotidine (Pepcid) 20 mg PO DAILY [facility] Gabapentin (Neurontin) 300 mg PO QHS [facility] Last Admin: 10/20/18 22:24 Dose: 300 mg Documented by: Hydralazine HCl (Apresoline) 10 mg PO Q8HR [facility] Last Admin: 10/21/18 05:39 Dose: Not Given Documented by: Hydralazine HCl (Apresoline) 10 mg IV Q4HR PRN PRN Reason: Blood Pressure Sodium Chloride (Nacl 0.9%) 100 mls @ 999 mls/hr IV LESLIE PRN PRN Reason: Hypotension Insulin Human Lispro (Humalog) 0 unit SUB-Q ACHS [facility]; Protocol Last Admin: 10/20/18 22:42 Dose: 3 unit Documented by: Latanoprost (Latanoprost 0.005%) 1 drops OU QPM [facility] Last Admin: 10/20/18 18:12 Dose: 1 drops Documented by: Levetiracetam (Keppra) 500 mg PO BID [facility] Metoprolol Tartrate (Lopressor) 25 mg PO BID [facility] Last Admin: 10/21/18 09:00 Dose: Not Given Documented by: Sodium Bicarbonate (Sodium Bicarbonate) 325 mg PO DAILY [facility] Last Admin: 10/20/18 10:37 Dose: 325 mg Documented by: Review of Systems ROS unobtainable: due to mental status Physical Examination - Vital Signs Vital Signs: Vital Signs Temp Pulse Resp BP Pulse Ox 97.7 F 57 L 16 128/78 87 10/17/18 10:10 10/17/18 10:10 10/17/18 10:10 10/17/18 10:10 10/17/18 10:10 - Constitutional General appearance: comfortable - EENT EENT: Present: ATNC, PERRL, mucous membranes moist - Respiratory Respiratory: Present: lungs clear, normal breath sounds - Cardiovascular Cardiovascular: Present: regular rate, normal S1, normal S2 Extremities: Present: no peripheral edema bilatateraly, no clubbing, cyanosis - Gastrointestinal Gastrointestinal: Present: normoactive bowel sounds, soft, non-tender - Integumentary Integumentary: Present: normal - Neurologic Cranial nerve examination: PERRL, other (patient awake, however nonverbal.. Patient not following any commands currently. Resists eye opening, and no blink to threat bilaterally.) Speech examination: global aphasia Detailed motor examination: other (patient withdraws to pain in upper extremities, however does not withdraw to pain in lower extremities.) Detailed sensory examination: pain, other (patient withdraws to pain in upper extremities, however not in lower extremities.) Reflex and gait examination: other (deferred) Reflexes: 2+: ankle, bicep, knee, tricep Cerebellar examination: other (unable to assess) - Musculoskeletal Musculoskeletal: Present: no pain, normal range of motion - Level of Consciousness 1a. Level of Consciousness: arousable/minor stimuli - LOC Questions 1b. LOC Questions: aphasic - LOC Command 1c. LOC Commands: performs no tasks correctly - Best Gaze 2. Best Gaze: normal - Visual 3. Visual: no visual loss - Facial Palsy 4. Facial Palsy: normal symmetrical movement - Motor Arm 5a. Motor Arm Left: some gravity effort 5b. Motor Arm Right: some gravity effort - Motor Leg 6a. Motor Leg Left: no movement 6b. Motor Leg Right: no movement - Limb Ataxia 7. Limb Ataxia: absent - Sensory 8. Sensory: mild/moderate sensory loss - Best Language 9. Best Language: mute/global aphasia - Dysarthria 10. Dysarthria: mute/anarrthric - Extinction and Inattention 11. Extinction/Inattention: no abnormality - Scoring Total Score: 23 Stroke Severity: Severe Stroke Results - Laboratory Findings CBC and BMP: 10/21/18 05:57 10/21/18 05:57 Abnormal Lab Findings: Abnormal Labs 10/17/18 10/17/18 10/17/18 10:16 10:19 10:19 RBC Hgb Hct MCV RDW Plt Count Lymph % (Auto) 9.5 L [place] % (Auto) Lymph # 1.0 L Seg Neutrophils % 84.7 H Monocytes % (Manual) Nucleated RBC % Seg Neutrophils # 8.7 H PT 20.6 H INR 1.81 H Potassium Chloride Carbon Dioxide BUN Creatinine Glucose POC Glucose 277 H Calcium TIBC Ferritin AST ALT Alkaline Phosphatase Lactate Dehydrogenase Total Creatine Kinase Troponin T Total Protein Albumin HDL Cholesterol Vitamin B12 Urine Creatinine Urine Total Protein Salicylates Acetaminophen 10/17/18 10/17/18 10/17/18 13:14 13:16 13:34 RBC Hgb Hct MCV RDW Plt Count Lymph % (Auto) [place] % (Auto) Lymph # Seg Neutrophils % Monocytes % (Manual) Nucleated RBC % Seg Neutrophils # PT INR Potassium Chloride Carbon Dioxide BUN Creatinine Glucose POC Glucose 330 H Calcium TIBC Ferritin AST ALT Alkaline Phosphatase Lactate Dehydrogenase Total Creatine Kinase Troponin T Total Protein Albumin HDL Cholesterol Vitamin B12 Urine Creatinine 276.0 H 271.1 H Urine Total Protein 191 H Salicylates Acetaminophen 10/17/18 10/17/18 10/17/18 15:15 21:03 Unknown RBC Hgb Hct MCV RDW Plt Count Lymph % (Auto) [place] % (Auto) Lymph # Seg Neutrophils % Monocytes % (Manual) Nucleated RBC % Seg Neutrophils # PT INR Potassium 6.6 H* Chloride Carbon Dioxide 10 L BUN 111 H Creatinine 6.5 H Glucose 351 H POC Glucose 143 H Calcium TIBC Ferritin AST ALT Alkaline Phosphatase Lactate Dehydrogenase Total Creatine Kinase 3216 H Troponin T 4.720 H* Total Protein Albumin HDL Cholesterol 88 H Vitamin B12 Urine Creatinine Urine Total Protein Salicylates Acetaminophen 10/17/18 10/17/18 10/18/18 Unknown Unknown 07:29 RBC Hgb Hct MCV RDW Plt Count Lymph % (Auto) [place] % (Auto) Lymph # Seg Neutrophils % Monocytes % (Manual) Nucleated RBC % Seg Neutrophils # PT INR Potassium Chloride Carbon Dioxide BUN Creatinine Glucose POC Glucose 120 H Calcium TIBC Ferritin AST ALT Alkaline Phosphatase Lactate Dehydrogenase Total Creatine Kinase Troponin T Total Protein Albumin HDL Cholesterol Vitamin B12 Urine Creatinine Urine Total Protein Salicylates < 0.3 L Acetaminophen < 5.0 L 10/18/18 10/18/18 10/18/18 09:09 09:09 12:21 RBC 3.28 L Hgb Hct MCV RDW Plt Count 125 L Lymph % (Auto) 13.2 L [place] % (Auto) Lymph # 1.1 L Seg Neutrophils % 80.7 H Monocytes % (Manual) Nucleated RBC % Seg Neutrophils # PT INR Potassium Chloride 97.9 L Carbon Dioxide 20 L D BUN 38 H Creatinine 3.2 H D Glucose 207 H POC Glucose 180 H Calcium TIBC Ferritin AST ALT Alkaline Phosphatase Lactate Dehydrogenase Total Creatine Kinase Troponin T Total Protein Albumin HDL Cholesterol Vitamin B12 Urine Creatinine Urine Total Protein Salicylates Acetaminophen 10/18/18 10/18/18 10/19/18 17:14 20:50 05:20 RBC 3.46 L Hgb Hct MCV 98 H RDW 16.4 H Plt Count 55 L Lymph % (Auto) [place] % (Auto) Lymph # Seg Neutrophils % Monocytes % (Manual) 9.0 H Nucleated RBC % 4.0 H Seg Neutrophils # PT INR Potassium Chloride Carbon Dioxide BUN Creatinine Glucose POC Glucose 256 H 335 H Calcium TIBC Ferritin AST ALT Alkaline Phosphatase Lactate Dehydrogenase Total Creatine Kinase Troponin T Total Protein Albumin HDL Cholesterol Vitamin B12 Urine Creatinine Urine Total Protein Salicylates Acetaminophen 10/19/18 10/19/18 10/19/18 05:20 08:34 08:34 RBC Hgb Hct MCV RDW Plt Count Lymph % (Auto) [place] % (Auto) Lymph # Seg Neutrophils % Monocytes % (Manual) Nucleated RBC % Seg Neutrophils # PT INR Potassium Chloride Carbon Dioxide 21 L BUN 52 H Creatinine 4.2 H Glucose 106 H POC Glucose Calcium TIBC 193 L Ferritin 2450.0 H AST ALT Alkaline Phosphatase Lactate Dehydrogenase 892 H Total Creatine Kinase Troponin T Total Protein Albumin HDL Cholesterol Vitamin B12 Urine Creatinine Urine Total Protein Salicylates Acetaminophen 10/19/18 10/19/18 10/19/18 08:34 09:06 13:41 RBC Hgb Hct MCV RDW Plt Count Lymph % (Auto) [place] % (Auto) Lymph # Seg Neutrophils % Monocytes % (Manual) Nucleated RBC % Seg Neutrophils # PT INR Potassium Chloride Carbon Dioxide BUN Creatinine Glucose POC Glucose 141 H 156 H Calcium TIBC Ferritin AST ALT Alkaline Phosphatase Lactate Dehydrogenase Total Creatine Kinase Troponin T Total Protein Albumin HDL Cholesterol Vitamin B12 1296 H Urine Creatinine Urine Total Protein Salicylates Acetaminophen 10/19/18 10/19/18 10/20/18 15:53 22:51 05:07 RBC 3.23 L Hgb 10.0 L Hct MCV RDW 15.7 H Plt Count 111 L D Lymph % (Auto) [place] % (Auto) 8.0 H Lymph # Seg Neutrophils % Monocytes % (Manual) Nucleated RBC % Seg Neutrophils # PT INR Potassium Chloride Carbon Dioxide BUN Creatinine Glucose POC Glucose 193 H 228 H Calcium TIBC Ferritin AST ALT Alkaline Phosphatase Lactate Dehydrogenase Total Creatine Kinase Troponin T Total Protein Albumin HDL Cholesterol Vitamin B12 Urine Creatinine Urine Total Protein Salicylates Acetaminophen 10/20/18 10/20/18 10/20/18 05:07 10:44 17:19 RBC Hgb Hct MCV RDW Plt Count Lymph % (Auto) [place] % (Auto) Lymph # Seg Neutrophils % Monocytes % (Manual) Nucleated RBC % Seg Neutrophils # PT INR Potassium Chloride Carbon Dioxide BUN 32 H Creatinine 3.2 H Glucose 177 H POC Glucose 160 H 143 H Calcium 8.0 L TIBC Ferritin AST 305 H ALT 728 H Alkaline Phosphatase 402 H Lactate Dehydrogenase Total Creatine Kinase Troponin T Total Protein 6.0 L Albumin 2.9 L HDL Cholesterol Vitamin B12 Urine Creatinine Urine Total Protein Salicylates Acetaminophen 10/20/18 10/21/18 10/21/18 20:44 05:57 05:57 RBC 3.16 L Hgb 10.0 L Hct 29.9 L MCV RDW 15.4 H Plt Count 125 L Lymph % (Auto) [place] % (Auto) 9.6 H Lymph # Seg Neutrophils % 71.3 H Monocytes % (Manual) Nucleated RBC % Seg Neutrophils # PT INR Potassium Chloride Carbon Dioxide BUN 47 H Creatinine 4.9 H D Glucose 229 H POC Glucose 234 H Calcium 8.0 L TIBC Ferritin AST ALT Alkaline Phosphatase Lactate Dehydrogenase Total Creatine Kinase Troponin T Total Protein Albumin HDL Cholesterol Vitamin B12 Urine Creatinine Urine Total Protein Salicylates Acetaminophen 10/21/18 10/21/18 07:55 12:05 RBC Hgb Hct MCV RDW Plt Count Lymph % (Auto) [place] % (Auto) Lymph # Seg Neutrophils % Monocytes % (Manual) Nucleated RBC % Seg Neutrophils # PT INR Potassium Chloride Carbon Dioxide BUN Creatinine Glucose POC Glucose 239 H 446 H Calcium TIBC Ferritin AST ALT Alkaline Phosphatase Lactate Dehydrogenase Total Creatine Kinase Troponin T Total Protein Albumin HDL Cholesterol Vitamin B12 Urine Creatinine Urine Total Protein Salicylates Acetaminophen Assessment and Plan Patient is a 63-year-old woman with a history of hypertension, diabetes mellitus, GERD, history of previous stroke with residual dementia, coronary artery disease status post CABG, history of seizures, chronic kidney disease. According the patient's clinical findings, the patient has had bilateral acute infarcts, likely cardiogenic in origin, as is seen on MRI. Plan: 1.Stroke: - Likely cardio-embolic, as b/l infarcts seen on MRI. - MRA head/neck pending - Echo: EF 10-15%, bubble study negative, LA moderately dilated - Recommend EDINSON, for evaluation of any intracardiac thrombi - no A-fib noted on telemetry thus far - LDL 116, however LFTs elevated, and therefore will not initiate statin at this time. -Secondary Prevention: - Continue antiplatelet at this time. - If patient has evidence of a-fib, would recommend for anti-coagulation to be started 14 days after stroke, which would be approximately 10/31/18. - Telemetry monitoring while in house. - PT and OT evaluation of mobility. Speech therapy consultation for swallow evaluation. DVT prophylaxis: Recommend Lovenox. - If no atrial fibrillation detected during this admission, patient will likely need 30 day cardiac monitoring as outpatient, and may further need implantable loop recorder to monitor for any atrial fibrillation long-term. 2. Hypertension: -Recommend BP goal of normotension, and it is and has been greater than 48 hours since onset of stroke symptoms. - Will continue to follow patient. - Discussed plan of care with patient's sister, and primary team, and they were in agreement with the plan. Amadeo Gunderson MD Neurology
[2018-10-21] MEDS: COLACE PO SCH ×2 (16:13→22:25)
[2018-10-21] MEDS: KEPPRA PO SCH ×2 (16:14→22:25)
[2018-10-21] MEDS: PLAVIX PO SCH (16:14)
[2018-10-21] MEDS: SODIUM BICARBONATE PO SCH (16:14)
[2018-10-21] MEDS: PEPCID PO SCH (16:14)
[2018-10-21] MEDS: NEURONTIN PO SCH (22:25)
--- NOTE | 2018-10-22 05:24 | Hem/Onc Progress Note ---
Assessment and Plan 1. Elevated LDH. Smear has been evaluated. Heparin-induced thrombocytopenia has been ordered. HIT NEGATIVE 2. Renal impairment. Nephrology team following the patient. SPEP and immunofixation. 3. deficiency investigation. The smear evaluation is being done. The platelet counts at admission were normal and then have gone down. The cause of thrombocytopenia at this time is not clear. Her mentation is also not perfect. I will follow the trend of the counts. b12 - folate - iron ferritin normal 4. Cerebrovascular accident?. neurology following. 5. Electrolyte imbalance. 6. Vitamin D deficiency. 8. History of diabetes. 9. History of hypertension. 10. History of seizure. 11. Hyperlipidemia. pt plt have improved - smear - rare schistocytes neurology following - cva low EF anti plt plan for statring later EDINSON was suggested SPEP - pending - Patient Problems (1) Thrombocytopenia Current Visit: Yes Status: Acute Subjective Date of service: 10/22/18 Principal diagnosis: LOW PLT - ANEMIA Interval history: pt non communicative Objective - Exam Narrative Exam: Pain Not evaluable General appearance no acute distress Performance status -completely disabled Eyes EOM not able to evaluate ENT no nose/ear bleed LNs cervical not palpable Neck Not evaluable Respiratory Normal Breath sounds - CTA anteriorly CVS S1 S2 + Extremities normal temperature/ no edema General GI Soft non tender Rectal deferred Female - deferred Skin warm Musculoskeletal generalized weakness Neurologically not responsive - Constitutional Vitals: Last Vital Signs Temp 98.5 F 10/22/18 04:06 Pulse 46 L 10/22/18 04:06 Resp 20 10/22/18 04:06 BP 106/69 10/22/18 04:06 Pulse Ox 81 L 10/22/18 04:06 - Labs Lab Results: Laboratory Results - last 24 hr 10/19/18 10/21/18 10/21/18 08:34 05:57 05:57 WBC 7.5 RBC 3.16 L Hgb 10.0 L Hct 29.9 L MCV 95 MCH 32 MCHC 33 RDW 15.4 H Plt Count 125 L Lymph % (Auto) 16.7 [place] % (Auto) 9.6 H Eos % (Auto) 2.0 Baso % (Auto) 0.4 Lymph # 1.2 [place] # 0.7 Eos # 0.1 Baso # 0.0 Seg Neutrophils % 71.3 H Seg Neutrophils # 5.3 Heparin Anti-Xa, Unfract Negative Sodium 139 Potassium 4.1 Chloride 98.6 Carbon Dioxide 25 Anion Gap 20 BUN 47 H Creatinine 4.9 H D Estimated GFR 11 BUN/Creatinine Ratio 10 Glucose 229 H POC Glucose Calcium 8.0 L Phosphorus 3.90 Heparin-induced Plt Ab Negative UF Heparin High Dose 0 KAILYN UFH Low Dose 0.1 0 KAILYN UFH Low Dose 0.5 0 10/21/18 10/21/18 10/21/18 07:55 12:05 15:40 WBC RBC Hgb Hct MCV MCH MCHC RDW Plt Count Lymph % (Auto) [place] % (Auto) Eos % (Auto) Baso % (Auto) Lymph # [place] # Eos # Baso # Seg Neutrophils % Seg Neutrophils # Heparin Anti-Xa, Unfract Sodium Potassium Chloride Carbon Dioxide Anion Gap BUN Creatinine Estimated GFR BUN/Creatinine Ratio Glucose POC Glucose 239 H 446 H 263 H Calcium Phosphorus Heparin-induced Plt Ab UF Heparin High Dose KAILYN UFH Low Dose 0.1 KAILYN UFH Low Dose 0.5 10/22/18 00:45 WBC RBC Hgb Hct MCV MCH MCHC RDW Plt Count Lymph % (Auto) [place] % (Auto) Eos % (Auto) Baso % (Auto) Lymph # [place] # Eos # Baso # Seg Neutrophils % Seg Neutrophils # Heparin Anti-Xa, Unfract Sodium Potassium Chloride Carbon Dioxide Anion Gap BUN Creatinine Estimated GFR BUN/Creatinine Ratio Glucose POC Glucose 179 H Calcium Phosphorus Heparin-induced Plt Ab UF Heparin High Dose KAILYN UFH Low Dose 0.1 KAILYN UFH Low Dose 0.5 Medications & Allergies - Medications Allergies/Adverse Reactions: Allergies NSAIDS (Non-Steroidal Anti-Inflamma Adverse Reaction (Verified 01/02/17 05:56) Unknown Tetracyclines Adverse Reaction (Verified 09/26/14 12:09) Unknown Home Medications: Home Medications Medication Instructions Recorded Confirmed Last Taken Type Ergocalciferol [Vitamin D2] 50,000 unit PO QWEEK capsule 09/25/16 10/17/18 Unknown Rx Latanoprost 0.005% 1 drop OP QPM 01/02/17 10/17/18 Unknown History Sodium Bicarbonate 325 mg PO DAILY 01/02/17 10/17/18 Unknown History Clopidogrel [Plavix] 75 mg PO DAILY #30 tablet 01/08/17 10/17/18 Unknown Rx Docusate Sodium [Colace CAP] 100 mg PO BID #60 capsule 01/08/17 10/17/18 Unknown Rx Famotidine [Pepcid] 10 mg PO BID #60 tablet 01/08/17 10/17/18 Unknown Rx Gabapentin [Neurontin] 300 mg PO QHS #30 capsule 01/08/17 10/17/18 Unknown Rx Simvastatin [Zocor TAB] 20 mg PO QHS #60 tablet 01/08/17 10/17/18 Unknown Rx glipiZIDE [Glucotrol] 5 mg PO QDDIAB #60 tablet 01/08/17 10/17/18 Unknown Rx hydrALAZINE [Apresoline TAB] 10 mg PO Q8HR #90 tablet 01/08/17 10/17/18 Unknown Rx levETIRAcetam [Keppra TAB] 500 mg PO BID #60 tablet 01/08/17 10/17/18 Unknown Rx Active Medications: Generic Name Dose Route Start Last Admin Trade Name Freq PRN Reason Stop Dose Admin Clopidogrel Bisulfate 75 mg 10/21/18 11:00 10/21/18 16:14 Plavix PO 75 mg QDAY [facility] Administration Docusate Sodium 100 mg 10/17/18 22:00 10/21/18 22:25 Colace PO 100 mg BID [facility] Administration Ergocalciferol 50,000 unit 10/24/18 10:00 Vitamin D2 PO Sa [facility] Famotidine 20 mg 10/21/18 10:00 10/21/18 16:14 Pepcid PO 20 mg DAILY [facility] Administration Gabapentin 300 mg 10/17/18 22:00 10/21/18 22:25 Neurontin PO 300 mg QHS [facility] Administration Hydralazine HCl 10 mg 10/17/18 17:00 10/21/18 22:24 Apresoline PO 10 mg Q8HR [facility] Administration Hydralazine HCl 10 mg 10/17/18 21:21 Apresoline IV Q4HR PRN Blood Pressure Sodium Chloride 100 mls @ 999 mls/hr 10/17/18 15:08 Nacl 0.9% IV LESLIE PRN Hypotension Insulin Human Lispro 0 unit 10/17/18 22:00 10/21/18 22:50 Humalog SUB-Q Not Given ACHS [facility] Protocol Latanoprost 1 drops 10/17/18 18:00 10/20/18 18:12 Latanoprost 0.005% OU 1 drops QPM [facility] Administration Levetiracetam 500 mg 10/21/18 10:00 10/21/18 22:25 Keppra PO 500 mg BID [facility] Administration Metoprolol Tartrate 25 mg 10/20/18 22:00 10/21/18 22:26 Lopressor PO Not Given BID [facility] Sodium Bicarbonate 325 mg 10/17/18 17:00 10/21/18 16:14 Sodium Bicarbonate PO 325 mg DAILY [facility] Administration
[2018-10-22] MEDS: APRESOLINE PO SCH ×2 (05:59→14:00)
[2018-10-22 06:54] LABS: Hematocrit 30.4 % (30.3-42.9); Hemoglobin 9.9 gm/dl (10.1-14.3); Mean Corpuscular HGB Conc 33 % (30-34); Mean Corpuscular Volume 96 fl (79-97); Red Blood Count 3.17 M/mm3 (3.65-5.03); Red Cell Distribution Width 15.7 % (13.2-15.2)
[2018-10-22 07:09] LABS: Calcium 8.4 mg/dL (8.4-10.2)
[2018-10-22] MEDS: HumaLOG SUB-Q SCH ×4 (07:43→23:04)
[2018-10-22 07:51] LABS: Anisocytosis Few; Basophils % (Manual) 0 % (0.0-1.8); Eosinophils % (Manual) 0 % (0.0-4.3); Platelet Estimate Consistent w Auto; Poikilocytosis Few; Total Cells Counted 100
[2018-10-22 07:52] LABS: Platelet Count 134 K/mm3 (140-440)
--- NOTE | 2018-10-22 09:30 | Progress Note ---
Assessment and Plan Acute renal failure on chronic kidney disease stage III/IV AG metabolic acidosis Hyperkalemia Metabolic encephalopathy CVA - cont tot be dialysis dependent and anuric - discussed with Dr Cole, will remove femoral vascath and place permanent catheter - Reordered 24 hour urine collection for creatinine clearance - Scott catheter in place for accurate collection. - Urine eosinophils were negative - Renal US- negative for obstruction - Renally dose medications - Strict I&O monitoring - Obtain daily weights - Assess dialysis needs daily and monitor signs of renal recovery Benji Shore MD [phone] Subjective Date of service: 10/22/18 Principal diagnosis: LOW PLT - ANEMIA Interval history: patient was in MRI, her care discussed with RN, she stated urine collection was not sent but it was interrupted multiple times for the last few days Objective - Vital Signs Vital signs: Vital Signs - 12hr 10/21/18 10/21/18 10/21/18 22:00 22:24 22:26 Temperature Pulse Rate 75 74 Pulse Rate [ 75 From Monitor] Respiratory 16 Rate Blood Pressure 118/79 118/79 O2 Sat by Pulse 98 Oximetry 10/21/18 10/21/18 10/22/18 23:00 23:18 02:00 Temperature 97.8 F 122.0 F H Pulse Rate 78 78 Pulse Rate [ From Monitor] Respiratory 18 Rate Blood Pressure 115/75 O2 Sat by Pulse 100 Oximetry 10/22/18 10/22/18 10/22/18 04:00 04:06 05:59 Temperature 98.5 F Pulse Rate 77 46 L 78 Pulse Rate [ From Monitor] Respiratory 20 Rate Blood Pressure 106/69 106/69 O2 Sat by Pulse 93 81 L Oximetry 10/22/18 10/22/18 07:39 08:49 Temperature 98.0 F Pulse Rate 53 L 53 L Pulse Rate [ From Monitor] Respiratory 18 Rate Blood Pressure 127/83 O2 Sat by Pulse 100 Oximetry - Lab 10/22/18 06:24 10/22/18 06:24 Most recent lab results Calcium 8.4 mg/dL (8.4-10.2) 10/22/18 06:24 Phosphorus 3.50 mg/dL (2.5-4.5) 10/22/18 06:24 Magnesium 1.70 mg/dL (1.7-2.3) 10/20/18 12:22 271.1 mg/dL (0.1-20.0) H 10/17/18 13:34 12 mmol/L 10/17/18 13:34 191 mg/dL (5-11.8) H 10/17/18 13:16 Medications & Allergies - Medications Allergies/Adverse Reactions: Allergies NSAIDS (Non-Steroidal Anti-Inflamma Adverse Reaction (Verified 01/02/17 05:56) Unknown Tetracyclines Adverse Reaction (Verified 09/26/14 12:09) Unknown Home Medications: Home Medications Medication Instructions Recorded Confirmed Last Taken Type Ergocalciferol [Vitamin D2] 50,000 unit PO QWEEK capsule 09/25/16 10/17/18 Unknown Rx Latanoprost 0.005% 1 drop OP QPM 01/02/17 10/17/18 Unknown History Sodium Bicarbonate 325 mg PO DAILY 01/02/17 10/17/18 Unknown History Clopidogrel [Plavix] 75 mg PO DAILY #30 tablet 01/08/17 10/17/18 Unknown Rx Docusate Sodium [Colace CAP] 100 mg PO BID #60 capsule 01/08/17 10/17/18 Unknown Rx Famotidine [Pepcid] 10 mg PO BID #60 tablet 01/08/17 10/17/18 Unknown Rx Gabapentin [Neurontin] 300 mg PO QHS #30 capsule 01/08/17 10/17/18 Unknown Rx Simvastatin [Zocor TAB] 20 mg PO QHS #60 tablet 01/08/17 10/17/18 Unknown Rx glipiZIDE [Glucotrol] 5 mg PO QDDIAB #60 tablet 01/08/17 10/17/18 Unknown Rx hydrALAZINE [Apresoline TAB] 10 mg PO Q8HR #90 tablet 01/08/17 10/17/18 Unknown Rx levETIRAcetam [Keppra TAB] 500 mg PO BID #60 tablet 01/08/17 10/17/18 Unknown Rx Active Medications: Generic Name Dose Route Start Last Admin Trade Name Freq PRN Reason Stop Dose Admin Clopidogrel Bisulfate 75 mg 10/21/18 11:00 10/21/18 16:14 Plavix PO 75 mg QDAY [place] Administration Docusate Sodium 100 mg 10/17/18 22:00 10/21/18 22:25 Colace PO 100 mg BID [facility] Administration Ergocalciferol 50,000 unit 10/24/18 10:00 Vitamin D2 PO Sa [facility] Famotidine 20 mg 10/21/18 10:00 10/21/18 16:14 Pepcid PO 20 mg DAILY [facility] Administration Gabapentin 300 mg 10/17/18 22:00 10/21/18 22:25 Neurontin PO 300 mg QHS [facility] Administration Hydralazine HCl 10 mg 10/17/18 17:00 10/22/18 05:59 Apresoline PO Not Given Q8HR [facility] Hydralazine HCl 10 mg 10/17/18 21:21 Apresoline IV Q4HR PRN Blood Pressure Sodium Chloride 100 mls @ 999 mls/hr 10/17/18 15:08 Nacl 0.9% IV LESLIE PRN Hypotension Insulin Human Lispro 0 unit 10/17/18 22:00 10/21/18 22:50 Humalog SUB-Q Not Given ACHS [facility] Protocol Latanoprost 1 drops 10/17/18 18:00 10/20/18 18:12 Latanoprost 0.005% OU 1 drops QPM [facility] Administration Levetiracetam 500 mg 10/21/18 10:00 10/21/18 22:25 Keppra PO 500 mg BID [facility] Administration Metoprolol Tartrate 25 mg 10/20/18 22:00 10/21/18 22:26 Lopressor PO Not Given BID [facility] Sodium Bicarbonate 325 mg 10/17/18 17:00 10/21/18 16:14 Sodium Bicarbonate PO 325 mg DAILY [facility] Administration
[2018-10-22 09:53] LABS: Patient Weight,Urine 126.5 lbs
--- NOTE | 2018-10-22 09:56 | Progress Note ---
Assessment and Plan Acute CVA, embolic -initiated on plavix (NSAIDS allergy) Altered mental status Left Pleural effusion Chronic kidney disease initiated on dialysis Elevated liver enzymes Thrombocytopenia Hypertension Diabetes Hx of CAD with prior CABG paroxysmal NSVT TSH is normal No ischemia by MPI 04/2016. Normal LVEF 50-55% by echo 09/2016. A repeat echocardiogram revealed right heart enlargement with a severely decreased left ventricular systolic function, EF 10-15%. The duration of this cardiomyopathy is uncertain. Recommend: Continue medical therapy for dilated cardiomyopathy and coronary artery disease as her blood pressure will allow. We will tentatively plan for a EDINSON for rule out cardioembolic source on Friday morning. Subjective Date of service: 10/22/18 Principal diagnosis: LOW PLT - ANEMIA Interval history: No cardiac events reported overnight. Patient is non-verbal. No distress noted. Neurology has recommended a EDINSON for rule out cardioembolic source. Will attempt to contact Next of Kin for consent. Objective Vital Signs Temp Pulse Pulse Resp BP BP Pulse Ox 10/22/18 08:49 53 L 10/22/18 07:39 98.0 F 53 L 18 127/83 100 10/22/18 05:59 78 106/69 10/22/18 04:06 98.5 F 46 L 20 106/69 81 L 10/22/18 04:00 77 93 10/22/18 02:00 78 10/21/18 23:18 122.0 F H 78 18 115/75 100 10/21/18 23:00 97.8 F 10/21/18 22:26 74 118/79 10/21/18 22:24 75 118/79 10/21/18 22:00 75 16 98 10/21/18 20:00 98.3 F 74 20 118/79 94 10/21/18 18:50 97.8 F 76 18 113/79 10/21/18 18:45 72 127/71 10/21/18 18:30 76 122/79 10/21/18 18:15 73 118/73 10/21/18 18:00 73 122/77 10/21/18 17:45 73 115/77 10/21/18 17:30 73 112/74 10/21/18 17:15 71 114/74 10/21/18 17:00 71 115/70 10/21/18 16:45 72 118/73 10/21/18 16:30 72 118/71 08/07/19 16:15 71 110/67 10/21/18 16:00 70 101/68 10/21/18 15:45 72 97/65 10/21/18 15:30 97.6 F 72 18 100/68 10/21/18 12:43 97.6 F 18 97/64 10/21/18 10:00 74 - Physical Examination General: No Apparent Distress Neck: Positive: trachea midline Neuro: Positive: Grossly Intact Extremities: Absent: edema - Labs and Meds CBC 10/22/18 Range/Units 06:24 WBC 10.6 (4.5-11.0) K/mm3 RBC 3.17 L (3.65-5.03) M/mm3 Hgb 9.9 L (10.1-14.3) gm/dl Hct 30.4 (30.3-42.9) % Plt Count 134 L (140-440) K/mm3 Comprehensive Metabolic Panel 10/22/18 Range/Units 06:24 Sodium 139 (137-145) mmol/L Potassium 3.8 (3.6-5.0) mmol/L Chloride 99.2 (98-107) mmol/L Carbon Dioxide 26 (22-30) mmol/L BUN 33 H (7-17) mg/dL Creatinine 3.9 H (0.7-1.2) mg/dL Glucose 171 H (65-100) mg/dL Calcium 8.4 (8.4-10.2) mg/dL - Imaging and Cardiology EKG: report reviewed (sinus rhythm, heart rate of 78/m consider ischemia and lateral leads)
--- NOTE | 2018-10-22 10:30 | Magnetic Resonance Report ---
NECK MR ANGIOGRAM 10/22/2018 HISTORY: Cerebral infarct. Dementia. FINDINGS: Unenhanced MR angiographic images of the neck were obtained. There is some artifact present, resulting in artifactual contour irregularity along the course of the internal carotid arteries. Taking this into account, there is no evidence of carotid bifurcation reid nosis. Good flow signal is seen in the vertebral arteries. The left vertebral artery is relatively hypoplast ic. IMPRESSION: No evidence of carotid bifurcation stenosis. Exam quality slightly limited due to motion artifact. NASCET like criteria were used in this evaluation. Signer Name: Richard Pinto MD Signed: 10/22/2018 10:25 AM Workstation Name: [id number]
[2018-10-22 10:49] LABS: Creatinine,Urine 157.6 mg/dL (0.1-20.0)
--- NOTE | 2018-10-22 10:49 | Magnetic Resonance Report ---
MRA HEAD 10/22/2018 INDICATION / CLINICAL INFORMATION: Recent infarct.. TECHNIQUE: Routine MRA of the head is performed. 3-D/MIP reformats postprocessed. Standard brain MR images were also acquired. COMPARISON: 10/19/2018 FINDINGS: The MR images of the brain again demonstrate areas of acute cortical ischemic change in the left occi pital and left frontal lobe, with some additional small foci in the left periventricular white matter , left inferior frontal lobe, and right parietal subcortical white matter. The overall pattern has no t changed. MR angiographic images of the anterior circulation demonstrate good flow signal. There is no MR angio graphic evidence of occlusion. Posterior circulation and a straight absence of flow signal in the distal left posterior cerebral art jonathan, which corresponds to the area of cortical ischemic change. The basilar artery itself is unremark able. The right distal vertebral artery is unremarkable. The left distal vertebral artery is hypoplas tic. Signer Name: Richard Pinto MD Signed: 10/22/2018 10:45 AM Workstation Name: [id number]
[2018-10-22] MEDS: PEPCID PO SCH (11:33)
[2018-10-22] MEDS: COLACE PO SCH (11:33)
[2018-10-22] MEDS: LOPRESSOR PO SCH (11:33)
[2018-10-22] MEDS: KEPPRA PO SCH (11:33)
[2018-10-22] MEDS: SODIUM BICARBONATE PO SCH (11:34)
[2018-10-22] MEDS: PLAVIX PO SCH (11:34)
--- NOTE | 2018-10-22 11:56 | Progress Note ---
Assessment and Plan Assessment and plan: Patient is a 63 yo woman with hypertension, dm type 2, gerd, cva, dementia, cad s/p cabg, seizure disorder, OA and CKD 4 (last Cr here was 2.2 on 01/08/2017) who presented to [facility] ED with AMS x 3 days. She was admitted for severe renal failure/uremic encephalopathy with hyperkalemia. Creatinine was found to be 5.6. She underwent emergent Hemodialysis. She was found after being alone in the house for two day a * CT head without contrast IMPRESSION: 1. Recent infarcts in the left MCA and left [employer] territories. Although there is no volume loss associated with [employer] infarct, the hypoattenuation of the parenchyma and loss of laboy-white differentiation is more conspicuous, suggesting this may be an older infarct. 2. No acute hemorrhage. Report of these findings was called to Dr. Novak in the emergency department at the time of dictation. Subacute CVA, -allergic to aspirin, onplavix, cannot give statin due to elevated LFTs MRA brain shows Abscense of flow in left post cereberal artery, MRA neck neg, carotid doppler neg embolic workup in progress, neurology consult appreciated, for EDINSON on friday Acute metabolic encephalopathy, improving, likely due to TUNDE and cva ARF/CKD 4 vasomotor +ATN: continue HD watch for signs of renal recovery Hyperkalemia: improved with HD Hx of cad, sp cabg. new onset systolic chf -Wide complex tachycardia -med mgt per cardiology, maintain electrolytes with HD to prevent further arrythmias -had normal EF in 2017, now has EF of 15% Glaucoma: continue latanoprost eyedrops Vitamin D deficiency: Continue vitamin D Hyperlipidemia: Continue statins Peripheral neuropathy: Continue gabapentin Seizure disorder: Continue Keppra Hypertension: Continue antihypertensives DVT prophylaxis: heparin and GI prophylaxis dispo; to snf, case dw with her sister Annabelle at [phone] History Interval history: Continues to have left-sided weakness Review of systems Constitutional: No fevers, CVS: No chest pain, no orthopnea, no dyspnea on exertion, no pedal edema GI: No abdominal pain, no diarrhea, no vomiting, no constipation Respiratory: no wheezing, no coughing Hospitalist Physical - Physical exam Narrative exam: General.: Appears chronically ill HEENT: Moist mucous membranes, extraocular muscles intact, no lymphadenopathy Neck: supple Cardiac: S1-S2 heard Lungs: clear to auscultation bilaterally Abdomen: soft , nontender, nondistended, bowel sounds positive Extremities: no edema clubbing or cyanosis Skin: no rash or lesions Neurologic: Left-sided weakness Psych: calm, and cooperative - Constitutional Vitals: Temp Pulse Resp BP Pulse Ox 98.0 F 53 L 18 127/83 100 10/22/18 07:39 10/22/18 08:49 10/22/18 07:39 10/22/18 07:39 10/22/18 07:39 General appearance: Present: no acute distress Results - Labs CBC & Chem 7: 10/24/18 04:50 10/25/18 11:31 Labs: Laboratory Last Values WBC 10.6 K/mm3 (4.5-11.0) 10/22/18 06:24 RBC 3.17 M/mm3 (3.65-5.03) L 10/22/18 06:24 Hgb 9.9 gm/dl (10.1-14.3) L 10/22/18 06:24 Hct 30.4 % (30.3-42.9) 10/22/18 06:24 MCV 96 fl (79-97) 10/22/18 06:24 MCH 31 pg (28-32) 10/22/18 06:24 MCHC 33 % (30-34) 10/22/18 06:24 RDW 15.7 % (13.2-15.2) H 10/22/18 06:24 Plt Count 134 K/mm3 (140-440) L 10/22/18 06:24 Lymph % (Auto) 16.7 % (13.4-35.0) 10/21/18 05:57 [place] % (Auto) 9.6 % (0.0-7.3) H 10/21/18 05:57 Eos % (Auto) 2.0 % (0.0-4.3) 10/21/18 05:57 Baso % (Auto) 0.4 % (0.0-1.8) 10/21/18 05:57 Lymph # 1.2 K/mm3 (1.2-5.4) 10/21/18 05:57 [place] # 0.7 K/mm3 (0.0-0.8) 10/21/18 05:57 Eos # 0.1 K/mm3 (0.0-0.4) 10/21/18 05:57 Baso # 0.0 K/mm3 (0.0-0.1) 10/21/18 05:57 Add Manual Diff Complete 10/22/18 06:24 Total Counted 100 10/22/18 06:24 Seg Neutrophils % 71.3 % (40.0-70.0) H 10/21/18 05:57 Seg Neuts % (Manual) 78.0 % (40.0-70.0) H 10/22/18 06:24 0 % 10/22/18 06:24 17.0 % (13.4-35.0) 10/22/18 06:24 Reactive Lymphs % (Man) 0 % 10/22/18 06:24 5.0 % (0.0-7.3) 10/22/18 06:24 0 % (0.0-4.3) 10/22/18 06:24 0 % (0.0-1.8) 10/22/18 06:24 0 % 10/22/18 06:24 0 % 10/22/18 06:24 0 % 10/22/18 06:24 0 % 10/22/18 06:24 Nucleated RBC % Not Reportable 10/22/18 06:24 Seg Neutrophils # 5.3 K/mm3 (1.8-7.7) 10/21/18 05:57 Seg Neutrophils # Man 8.3 K/mm3 (1.8-7.7) H 10/22/18 06:24 Band Neutrophils # 0.0 K/mm3 10/22/18 06:24 1.8 K/mm3 (1.2-5.4) 10/22/18 06:24 Abs React Lymphs (Man) 0.0 K/mm3 10/22/18 06:24 0.5 K/mm3 (0.0-0.8) 10/22/18 06:24 0.0 K/mm3 (0.0-0.4) 10/22/18 06:24 0.0 K/mm3 (0.0-0.1) 10/22/18 06:24 0.0 K/mm3 10/22/18 06:24 0.0 K/mm3 10/22/18 06:24 0.0 K/mm3 10/22/18 06:24 Blast Cells # 0.0 K/mm3 10/22/18 06:24 Pathologist Review 10/19/18 05:20 WBC Morphology Not Reportable 10/22/18 06:24 Hypersegmented Neuts Not Reportable 10/22/18 06:24 Hyposegmented Neuts Not Reportable 10/22/18 06:24 Hypogranular Neuts Not Reportable 10/22/18 06:24 Not Reportable 10/22/18 06:24 Not Reportable 10/22/18 06:24 Not Reportable 10/22/18 06:24 Not Reportable 10/22/18 06:24 Not Reportable 10/22/18 06:24 Not Reportable 10/22/18 06:24 Consistent w auto 10/22/18 06:24 Not Reportable 10/22/18 06:24 Plt Clumps, EDTA Not Reportable 10/22/18 06:24 Not Reportable 10/22/18 06:24 Not Reportable 10/22/18 06:24 Not Reportable 10/22/18 06:24 Plt Morphology Comment Not Reportable 10/22/18 06:24 RBC Morphology Not Reportable 10/22/18 06:24 Dimorphic RBCs Not Reportable 10/22/18 06:24 Not Reportable 10/22/18 06:24 Not Reportable 10/22/18 06:24 Few 10/22/18 06:24 Few 10/22/18 06:24 Not Reportable 10/22/18 06:24 Not Reportable 10/22/18 06:24 Not Reportable 10/22/18 06:24 Not Reportable 10/22/18 06:24 Not Reportable 10/22/18 06:24 Not Reportable 10/22/18 06:24 Not Reportable 10/22/18 06:24 Not Reportable 10/22/18 06:24 Not Reportable 10/22/18 06:24 Not Reportable 10/22/18 06:24 Not Reportable 10/22/18 06:24 Not Reportable 10/22/18 06:24 Not Reportable 10/22/18 06:24 Not Reportable 10/22/18 06:24 Not Reportable 10/22/18 06:24 Acanthocytes (Spur) Not Reportable 10/22/18 06:24 Rouleaux Not Reportable 10/22/18 06:24 Not Reportable 10/22/18 06:24 Not Reportable 10/22/18 06:24 Not Reportable 10/22/18 06:24 Not Reportable 10/22/18 06:24 Hem Pathologist Commnt No 10/22/18 06:24 PT 20.6 Sec. (12.2-14.9) H 10/17/18 10:19 INR 1.81 (0.87-1.13) H 10/17/18 10:19 APTT 35.6 Sec. (24.2-36.6) 10/17/18 10:19 18.7 Sec. (15.1-19.6) 10/17/18 10:19 Heparin Anti-Xa, Unfract Negative (Negative) 10/19/18 08:34 Sodium 139 mmol/L (137-145) 10/22/18 06:24 Potassium 3.8 mmol/L (3.6-5.0) 10/22/18 06:24 Chloride 99.2 mmol/L (98-107) 10/22/18 06:24 Carbon Dioxide 26 mmol/L (22-30) 10/22/18 06:24 18 mmol/L 10/22/18 06:24 BUN 33 mg/dL (7-17) H 10/22/18 06:24 3.9 mg/dL (0.7-1.2) H 10/22/18 06:24 Estimated GFR 14 ml/min 10/22/18 06:24 8 % 10/22/18 06:24 Glucose 171 mg/dL (65-100) H 10/22/18 06:24 POC Glucose 179 (70-105) H 10/22/18 00:45 Calcium 8.4 mg/dL (8.4-10.2) 10/22/18 06:24 Phosphorus 3.50 mg/dL (2.5-4.5) 10/22/18 06:24 Magnesium 1.70 mg/dL (1.7-2.3) 10/20/18 12:22 Iron 55 ug/dL (37-170) 10/19/18 08:34 TIBC 193 mcg/dL (250-450) L 10/19/18 08:34 2450.0 ng/mL (13.0-400.0) H 10/19/18 08:34 0.50 mg/dL (0.1-1.2) 10/20/18 05:07 AST 305 units/L (5-40) H 10/20/18 05:07 ALT 728 units/L (7-56) H 10/20/18 05:07 402 units/L (35-129) H 10/20/18 05:07 44.0 umol/L (25-60) 10/17/18 15:43 892 units/L (91-180) H 10/19/18 08:34 3216 units/L (30-135) H 10/17/18 15:15 4.720 ng/mL (0.00-0.029) H* 10/17/18 Unknown 6.0 g/dL (6.3-8.2) L 10/20/18 05:07 2.9 g/dL (3.9-5) L 10/20/18 05:07 0.9 % 10/20/18 05:07 Triglycerides 102 mg/dL (2-149) 10/17/18 Unknown Cholesterol 198 mg/dL (50-199) 10/17/18 Unknown 116 mg/dL (50-130) 10/17/18 Unknown 88 mg/dL (40-59) H 10/17/18 Unknown 2.25 % 10/17/18 Unknown Vitamin B12 1296 pg/mL (211-911) H 10/19/18 08:34 8.42 ng/mL (7.3-26.0) 10/19/18 08:34 TSH 1.030 mlU/mL (0.270-4.200) 10/17/18 Unknown Free T4 1.26 ng/dL (0.76-1.46) 10/17/18 Unknown Yellow (Yellow) 10/17/18 11:25 Slightly-cloudy (Clear) 10/17/18 11:25 5.0 (5.0-7.0) 10/17/18 11:25 Ur Specific [place] 1.019 (1.003-1.030) 10/17/18 11:25 100 mg/dl mg/dL (Negative) 10/17/18 11:25 150 mg/dL (Negative) 10/17/18 11:25 Tr mg/dL (Negative) 10/17/18 11:25 Sm (Negative) 10/17/18 11:25 Neg (Negative) 10/17/18 11:25 Neg (Negative) 10/17/18 11:25 < 2.0 mg/dL (<2.0) 10/17/18 11:25 Ur Leukocyte Esterase Tr (Negative) 10/17/18 11:25 3.0 /HPF (0.0-6.0) 10/17/18 11:25 2.0 /HPF (0.0-6.0) 10/17/18 11:25 Few /HPF 10/17/18 11:25 None seen (None Seen) 10/17/18 13:16 80 ml 10/20/18 13:45 157.6 mg/dL (0.1-20.0) H 10/20/18 13:45 Height (in) 62.0 inches 10/20/18 13:45 Weight (lb) 126.5 lbs 10/20/18 13:45 3 10/20/18 13:45 Protein/Creatinin Ratio 0.69 10/17/18 13:16 12 mmol/L 10/17/18 13:34 191 mg/dL (5-11.8) H 10/17/18 13:16 Salicylates < 0.3 mg/dL (2.8-20.0) L 10/17/18 Unknown Acetaminophen < 5.0 ug/mL (10.0-30.0) L 10/17/18 Unknown Plasma/Serum Alcohol < 0.01 % (0-0.07) 10/17/18 Unknown Heparin-induced Plt Ab Negative (Negative) 10/19/18 08:34 UF Heparin High Dose 0 % Release 10/19/18 08:34 KAILYN UFH Low Dose 0.1 0 % Release 10/19/18 08:34 KAILYN UFH Low Dose 0.5 0 % Release 10/19/18 08:34 Hepatitis A IgM Ab Non-reactive (NonReactive) 10/17/18 15:15 Hep Bs Antigen Non-reactive (Negative) 10/17/18 15:15 Hep B Core IgM Ab Non-reactive (NonReactive) 10/17/18 15:15 Non-reactive (NonReactive) 10/17/18 15:15 Rare 10/17/18 15:43 Active Medications - Current Medications Current Medications: Generic Name Dose Route Start Last Admin Trade Name Freq PRN Reason Stop Dose Admin Clopidogrel Bisulfate 75 mg 10/21/18 11:00 10/22/18 11:34 Plavix PO Not Given QDAY [facility] Docusate Sodium 100 mg 10/17/18 22:00 10/22/18 11:33 Colace PO Not Given BID [facility] Ergocalciferol 50,000 unit 10/24/18 10:00 Vitamin D2 PO Sa [facility] Famotidine 20 mg 10/21/18 10:00 10/22/18 11:33 Pepcid PO Not Given DAILY [facility] Gabapentin 300 mg 10/17/18 22:00 10/21/18 22:25 Neurontin PO 300 mg QHS [facility] Administration Hydralazine HCl 10 mg 10/17/18 17:00 10/22/18 05:59 Apresoline PO Not Given Q8HR [facility] Hydralazine HCl 10 mg 10/17/18 21:21 Apresoline IV Q4HR PRN Blood Pressure Sodium Chloride 100 mls @ 999 mls/hr 10/17/18 15:08 Nacl 0.9% IV LESLIE PRN Hypotension Insulin Human Lispro 0 unit 10/17/18 22:00 10/21/18 22:50 Humalog SUB-Q Not Given ACHS [facility] Protocol Latanoprost 1 drops 10/17/18 18:00 10/20/18 18:12 Latanoprost 0.005% OU 1 drops QPM [facility] Administration Levetiracetam 500 mg 10/21/18 10:00 10/22/18 11:33 Keppra PO Not Given BID [facility] Metoprolol Tartrate 25 mg 10/20/18 22:00 10/22/18 11:33 Lopressor PO Not Given BID [facility] Sodium Bicarbonate 325 mg 10/17/18 17:00 10/22/18 11:34 Sodium Bicarbonate PO Not Given DAILY [facility] Nutrition/Malnutrition Assess - Dietary Evaluation Nutrition/Malnutrition Findings: Nutrition Notes Start: 10/18/18 14:28 Freq: Status: Active Protocol: Document 10/21/18 16:35 RM (Rec: 10/21/18 16:45 RM [id number]) Nutrition Notes Initial or Follow up Assessment Current Diagnosis Acute Kidney Injury,CKD(stage I-IV),Coronary Artery Disease, Diabetes,Hypertension,Stroke, Hyperlipidemia Other Pertinent Diagnosis Hx CVA, Acute encephalopathy, Suspected CVA Current Diet [facility] soft, Consistent CHO, Renal w/chopped meat and Nepro 1 daily Labs/Tests Reviewed Pertinent Medications Reviewed Height 5 ft 2 in Weight 54.3 kg [place] Body Weight (kg) 50.00 BMI 21.9 Weight change and time frame Unable to weigh pt d/t bedscale not working Subjective/Other Information [facility] soft w/thin liquids recommended per bedside dysphagia evaluation. Pt confused at time of visit. Per tech pt eats 1 meal daily and drinks the Nepro. Percent of energy/protein needs met: 86%/91% Burn Absent Trauma Absent #1 Nutrition Diagnosis Inadequate oral intake As Evidenced by Signs and Symptoms pt meeting 86% of calorie and 91% of protein needs Diagnosis Progress(for reassessment Resolved documentation) Is patient on ventilator? No Is Patient Ambulatory and/or Out of Bed No REE-([facility]-confined to bed) 1266.900 Kcal/Kg value to use for calculation 24 Approximate Energy Requirements Using 1303 kcal/Kg [facility]culation [facility] Additional Notes Protein Needs: 54-68g (0.8-1g/ kg) Fluid Needs: 1 ml/kcal Nutrition Intervention Change Diet Order: Continue current Add Supplement/Snack (indicate name/kcal Nepro 1 daily /protein ) Provides kCal: 425 Provides Protein (gm) 19 Goal #1 Continue to meet at least 75% of calorie and protein needs via PO and ONS intakes Anticipated Discharge Needs: [facility] soft, Consistent CHO diet Follow-Up By: 10/26/18 Additional Comments Follow for PO and ONS intakes
--- NOTE | 2018-10-22 11:59 | Event Note ---
Date: 10/22/18 Dr. Shore requested permcath placement. Contacted family who provided consent. The sister seems to be partially confused about dialysis catheters and access as she makes references that superficially seem to be correct, but they are unfortunately confusing and incorrect and it is difficult to have her understand the next step in her sister's dialysis care. She ultimately understood why a tunneled catheter was required and why we place them in the internal jugular vein. Will order vein mapping. Sister seems to now understand the next few steps for her sister's dialysis access creation and catheter placement. R/B/A discussed. Consent obtained.
[2018-10-22] MEDS ORDERED: HEPARIN/NS 5000 UNIT/500ML(CATH LAB) 500 ML IR ONE (15:52)
[2018-10-22] MEDS ORDERED: ANCEF/STERILE WATER 2 GM/20 ML 2 GM/20 ML SYRINGE IV ONE (15:53)
[2018-10-22] MEDS ORDERED: NACL 0.9% 250ML 250 ML ONE (15:53)
[2018-10-22] MEDS ORDERED: VERSED ONE (15:53)
[2018-10-22] MEDS ORDERED: SUBLIMAZE ONE (15:54)
[2018-10-22] MEDS: XYLOCAINE 1%/ EPI 1:100,000 INFILTRATI ONE ×3 (16:26→16:39)
[2018-10-22] MEDS: HEPARIN 10,000 UNITS/10 ML ONE ×4 (16:40→16:53)
--- NOTE | 2018-10-22 16:42 | Vascular Lab Report ---
DOPPLER ULTRASOUND UPPER EXTREMITY VENOUS MAPPING, BILATERAL INDICATION / CLINICAL INFORMATION: vein mapping UE for ESRD TECHNIQUE: Grayscale, color and spectral Doppler imaging of the venous system of the right and left upper extrem ities was performed. COMPARISON: None available. FINDINGS: RIGHT UPPER EXTREMITY: Subclavian Vein: Patent. Axillary Vein: Patent. Cephalic Vein (Diameter): - Upper Arm: 0.23 / - Mid Arm: 0.19 / - Antecubital: 0.22 / - Upper Forearm: 0.25 / - Mid Forearm: 0.16 / - Wrist: 0.16 / Basilic Vein (Diameter): - Upper Arm: 0.20 - Mid Arm: 0.24 - Antecubital: 0.28 / - Upper Forearm: 0.20 / - Mid Forearm: Not visualized / - Wrist: Not visualized / Brachial artery PSV (CM per second): 63 cm/s Radial Artery PSV (cm/s): 35 cm/s Ulnar Artery PSV (cm/s): 17 cm/s LEFT UPPER EXTREMITY: Subclavian Vein: Patent. Axillary Vein: Patent. Cephalic Vein (Diameter): - Upper Arm: 0.19 / - Mid Arm: 0.15 / - Antecubital: 0.14 / - Upper Forearm: 0.17 / - Mid Forearm: Not visualized / - Wrist: Not visualized / Basilic Vein (Diameter): - Upper Arm: Not visualized / - Mid Arm: 0.23 / - Antecubital: 0.22 / - Upper Forearm: Not visualized / - Mid Forearm: Not visualized / - Wrist: Not visualized / Brachial artery PSV (cm/s): 39 cm/s Radial Artery PSV (cm/s): 41 cm/s Ulnar Artery PSV (cm/s): 16 cm/s Additional Findings: Normal triphasic arterial waveforms noted IMPRESSION: 1. No sonographic evidence of deep venous thrombosis. 2. Upper extremity venous mapping as above. Signer Name: Gabriele Olmstead MD Signed: 10/22/2018 4:37 PM Workstation Name: [id number]
--- NOTE | 2018-10-22 17:32 | Operative Report ---
Operative Report Operative Report: EXAM: 1. Ultrasound-guided puncture of the right internal jugular vein 2. Venography of the right internal jugular vein, and superior vena cava 3. Fluoroscopic-guided placement of a right internal jugular tunneled cuffed hemodialysis catheter. DATE: 10/22/18 INDICATION: End-stage renal disease requiring hemodialysis MEDICATIONS: Please see nursing report for full details. DEVICES: 23 cm tip to cuff 15 Fr dual lumen hemodialysis catheter OUTSIDE MAINTENANCE WORKER: DAVIDE CASTORENA MD CONTRAST: 10 mL's of nonionic contrast. PROCEDURE: The risks, benefits, and alternatives were discussed and informed consent was obtained. The patient was transported to the angiography suite in satisfactory/stable condition and was transported onto the angiography table. The patient was prepped and draped in a sterile fashion. The patient's right internal jugular vein was assessed with ultrasound and determined to be atretic, but still patent. The puncture site was anesthetized. Under sonographic guidance, the right internal jugular vein was punctured with a 21-gauge micropuncture needle and a 0.018 inch wire was advanced into the internal jugular vein. The inner portion of the transitional dilator was advanced over the wire and digital subtraction angiography was performed demonstrating atresia of the internal jugular vein, right innominate vein, and part of the right subclavian vein with numerous collaterals. Roadmapping imaging was performed. 0.018 inch wire was then negotiated into the SVC through the collaterals. Transitional dilator was reassembled and an advanced over the wire. 0.035 inch Amplatz wire was advanced through the transitional dilator into the inferior vena cava. A suitable exit site was identified on the patient's chest inferior and lateral to the venotomy. The site was anesthetized with local anesthetic and the track was anesthetized. Dermatotomy was made. The PermCath was attached to the tunneling device and tunneled between the dermatotomy to the venotomy. Over the 0.035 inch wire, serial dilatation was performed with ultimate placement of a peel-away sheath. The catheter was advanced through the peel- away sheath after the wire was removed and positioned centrally under fluoroscopic guidance. The peel-away sheath was removed. The catheter tip is in the right atrium. Excellent flow was obtained through the dialysis catheter with 20 mL syringes. 4-0 Vicryl suture was used to close the venotomy and Dermabond was then applied. 2-0 Ethilon suture was used to secure the catheter at the dermatotomy. The catheter was charged with heparin 1000 units per mL of space was infused. Sterile dressing and Biopatch applied. The patient was transferred from the angiography suite back to the floor in stable condition. FINDINGS: Please see above. IMPRESSION: 1. Successful ultrasound and fluoroscopically guided placement of a right internal jugular tunneled cuffed hemodialysis catheter.
[2018-10-22] MEDS: LATANOPROST 0.005% OU SCH (18:00)
[2018-10-23] MEDS: APRESOLINE PO SCH ×3 (02:00→14:00)
[2018-10-23] MEDS: COLACE PO SCH ×3 (02:00→22:00)
[2018-10-23] MEDS: KEPPRA PO SCH ×3 (02:01→22:00)
[2018-10-23] MEDS: NEURONTIN PO SCH ×2 (02:01→22:00)
[2018-10-23] MEDS: LOPRESSOR PO SCH ×2 (02:01→10:03)
[2018-10-23 05:54] LABS: Hematocrit 33.9 % (30.3-42.9); Hemoglobin 10.8 gm/dl (10.1-14.3); Mean Corpuscular HGB Conc 32 % (30-34); Mean Corpuscular Volume 97 fl (79-97); Platelet Count 149 K/mm3 (140-440); Red Blood Count 3.49 M/mm3 (3.65-5.03); Red Cell Distribution Width 16.7 % (13.2-15.2)
[2018-10-23 06:07] LABS: Calcium 8.6 mg/dL (8.4-10.2)
--- NOTE | 2018-10-23 06:30 | Hem/Onc Progress Note ---
Assessment and Plan 1. Elevated LDH. Smear has been evaluated. Heparin-induced thrombocytopenia has been ordered. HIT NEGATIVE 2. Renal impairment. Nephrology team following the patient. SPEP normal 3. deficiency investigation. The smear evaluation is being done. The platelet counts at admission were normal and then have gone down. The cause of thrombocytopenia at this time is not clear. Her mentation is also not perfect. I will follow the trend of the counts. b12 - folate - iron ferritin normal 4. Cerebrovascular accident?. neurology following. 5. Electrolyte imbalance. 6. Vitamin D deficiency. 8. History of diabetes. 9. History of hypertension. 10. History of seizure. 11. Hyperlipidemia. pt plt have improved - smear - rare schistocytes neurology following - cva low EF anti plt plan for statring later EDINSON was suggested SPEP - no Monoclonal band ADAMTS 13 - normal level Stroke: - Likely cardio-embolic, as b/l infarcts seen on MRI. - MRA head/neck did not reveal any significant stenosis - Echo: EF 10-15%, bubble study negative, LA moderately dilated - EDINSON did not reveal any evidence of intracardiac thrombi. - Patient Problems (1) Thrombocytopenia Current Visit: Yes Status: Acute Subjective Date of service: 10/23/18 Principal diagnosis: low plt Interval history: not responding to q Objective - Exam Narrative Exam: Pain Not evaluable General appearance no acute distress Performance status -completely disabled Eyes EOM not able to evaluate ENT no nose/ear bleed LNs cervical not palpable Neck Not evaluable Respiratory Normal Breath sounds - CTA anteriorly CVS S1 S2 + Extremities normal temperature/ no edema General GI Soft non tender Rectal deferred Female - deferred Skin warm Musculoskeletal generalized weakness Neurologically not responsive - Constitutional Vitals: Last Vital Signs Temp 99.6 F 10/23/18 04:07 Pulse 88 10/23/18 04:07 Resp 20 10/23/18 04:07 BP 107/63 10/23/18 04:07 Pulse Ox 100 10/23/18 04:07 - Labs Lab Results: Laboratory Results - last 24 hr 10/20/18 10/20/18 10/20/18 05:07 10:53 13:45 WBC RBC Hgb Hct MCV MCH MCHC RDW Plt Count Add Manual Diff Total Counted Seg Neuts % (Manual) Band Neutrophils % Lymphocytes % (Manual) Reactive Lymphs % (Man) Monocytes % (Manual) Eosinophils % (Manual) Basophils % (Manual) Metamyelocytes % Myelocytes % Promyelocytes % Blast Cells % Nucleated RBC % Seg Neutrophils # Man Band Neutrophils # Lymphocytes # (Manual) Abs React Lymphs (Man) Monocytes # (Manual) Eosinophils # (Manual) Basophils # (Manual) Metamyelocytes # Myelocytes # Promyelocytes # Blast Cells # WBC Morphology Hypersegmented Neuts Hyposegmented Neuts Hypogranular Neuts Smudge Cells Toxic Granulation Toxic Vacuolation Dohle Bodies Pelger-Huet Anomaly Rani Rods Platelet Estimate Clumped Platelets Plt Clumps, EDTA Large Platelets Giant Platelets Platelet Satelliting Plt Morphology Comment RBC Morphology Dimorphic RBCs Polychromasia Hypochromasia Poikilocytosis Anisocytosis Microcytosis Macrocytosis Spherocytes Pappenheimer Bodies Sickle Cells Target Cells Tear Drop Cells Ovalocytes Helmet Cells [place] Bodies [place] Marisol Cells Bite Cells Crenated Cell Elliptocytes Acanthocytes (Spur) Rouleaux Hemoglobin C Crystals Schistocytes Malaria parasites Reggie Bodies Hem Pathologist Commnt Sodium Potassium Chloride Carbon Dioxide Anion Gap BUN Creatinine Estimated GFR BUN/Creatinine Ratio Glucose POC Glucose Calcium Phosphorus Urine Total Volume 80 Urine Creatinine 157.6 H Height (in) 62.0 Weight (lb) 126.5 Creatinine Clearance 3 Immunofix Electrophor see below Miscellaneous Test Flexitest 1 10/22/18 10/22/18 10/22/18 06:24 06:24 12:47 WBC 10.6 RBC 3.17 L Hgb 9.9 L Hct 30.4 MCV 96 MCH 31 MCHC 33 RDW 15.7 H Plt Count 134 L Add Manual Diff Complete Total Counted 100 Seg Neuts % (Manual) 78.0 H Band Neutrophils % 0 Lymphocytes % (Manual) 17.0 Reactive Lymphs % (Man) 0 Monocytes % (Manual) 5.0 Eosinophils % (Manual) 0 Basophils % (Manual) 0 Metamyelocytes % 0 Myelocytes % 0 Promyelocytes % 0 Blast Cells % 0 Nucleated RBC % Not Reportable Seg Neutrophils # Man 8.3 H Band Neutrophils # 0.0 Lymphocytes # (Manual) 1.8 Abs React Lymphs (Man) 0.0 Monocytes # (Manual) 0.5 Eosinophils # (Manual) 0.0 Basophils # (Manual) 0.0 Metamyelocytes # 0.0 Myelocytes # 0.0 Promyelocytes # 0.0 Blast Cells # 0.0 WBC Morphology Not Reportable Hypersegmented Neuts Not Reportable Hyposegmented Neuts Not Reportable Hypogranular Neuts Not Reportable Smudge Cells Not Reportable Toxic Granulation Not Reportable Toxic Vacuolation Not Reportable Dohle Bodies Not Reportable Pelger-Huet Anomaly Not Reportable Rani Rods Not Reportable Platelet Estimate Consistent w auto Clumped Platelets Not Reportable Plt Clumps, EDTA Not Reportable Large Platelets Not Reportable Giant Platelets Not Reportable Platelet Satelliting Not Reportable Plt Morphology Comment Not Reportable RBC Morphology Not Reportable Dimorphic RBCs Not Reportable Polychromasia Not Reportable Hypochromasia Not Reportable Poikilocytosis Few Anisocytosis Few Microcytosis Not Reportable Macrocytosis Not Reportable Spherocytes Not Reportable Pappenheimer Bodies Not Reportable Sickle Cells Not Reportable Target Cells Not Reportable Tear Drop Cells Not Reportable Ovalocytes Not Reportable Helmet Cells Not Reportable [place] Bodies Not Reportable [place] Not Reportable Marisol Cells Not Reportable Bite Cells Not Reportable Crenated Cell Not Reportable Elliptocytes Not Reportable Acanthocytes (Spur) Not Reportable Rouleaux Not Reportable Hemoglobin C Crystals Not Reportable Schistocytes Not Reportable Malaria parasites Not Reportable Reggie Bodies Not Reportable Hem Pathologist Commnt No Sodium 139 Potassium 3.8 Chloride 99.2 Carbon Dioxide 26 Anion Gap 18 BUN 33 H Creatinine 3.9 H Estimated GFR 14 BUN/Creatinine Ratio 8 Glucose 171 H POC Glucose 210 H Calcium 8.4 Phosphorus 3.50 Urine Total Volume Urine Creatinine Height (in) Weight (lb) Creatinine Clearance Immunofix Electrophor Miscellaneous Test 10/22/18 10/22/18 10/23/18 18:33 21:58 05:24 WBC 10.6 RBC 3.49 L Hgb 10.8 Hct 33.9 MCV 97 MCH 31 MCHC 32 RDW 16.7 H Plt Count 149 Add Manual Diff Total Counted Seg Neuts % (Manual) Band Neutrophils % Lymphocytes % (Manual) Reactive Lymphs % (Man) Monocytes % (Manual) Eosinophils % (Manual) Basophils % (Manual) Metamyelocytes % Myelocytes % Promyelocytes % Blast Cells % Nucleated RBC % Seg Neutrophils # Man Band Neutrophils # Lymphocytes # (Manual) Abs React Lymphs (Man) Monocytes # (Manual) Eosinophils # (Manual) Basophils # (Manual) Metamyelocytes # Myelocytes # Promyelocytes # Blast Cells # WBC Morphology Hypersegmented Neuts Hyposegmented Neuts Hypogranular Neuts Smudge Cells Toxic Granulation Toxic Vacuolation Dohle Bodies Pelger-Huet Anomaly Rani Rods Platelet Estimate Clumped Platelets Plt Clumps, EDTA Large Platelets Giant Platelets Platelet Satelliting Plt Morphology Comment RBC Morphology Dimorphic RBCs Polychromasia Hypochromasia Poikilocytosis Anisocytosis Microcytosis Macrocytosis Spherocytes Pappenheimer Bodies Sickle Cells Target Cells Tear Drop Cells Ovalocytes Helmet Cells [place] Bodies [place] Cells Bite Cells Crenated Cell Elliptocytes Acanthocytes (Spur) Rouleaux Hemoglobin C Crystals Schistocytes Malaria parasites Reggie Bodies Hem Pathologist Commnt Sodium Potassium Chloride Carbon Dioxide Anion Gap BUN Creatinine Estimated GFR BUN/Creatinine Ratio Glucose POC Glucose 176 H 230 H Calcium Phosphorus Urine Total Volume Urine Creatinine Height (in) Weight (lb) Creatinine Clearance Immunofix Electrophor Miscellaneous Test 10/23/18 05:24 WBC RBC Hgb Hct MCV MCH MCHC RDW Plt Count Add Manual Diff Total Counted Seg Neuts % (Manual) Band Neutrophils % Lymphocytes % (Manual) Reactive Lymphs % (Man) Monocytes % (Manual) Eosinophils % (Manual) Basophils % (Manual) Metamyelocytes % Myelocytes % Promyelocytes % Blast Cells % Nucleated RBC % Seg Neutrophils # Man Band Neutrophils # Lymphocytes # (Manual) Abs React Lymphs (Man) Monocytes # (Manual) Eosinophils # (Manual) Basophils # (Manual) Metamyelocytes # Myelocytes # Promyelocytes # Blast Cells # WBC Morphology Hypersegmented Neuts Hyposegmented Neuts Hypogranular Neuts Smudge Cells Toxic Granulation Toxic Vacuolation Dohle Bodies Pelger-Huet Anomaly Rani Rods Platelet Estimate Clumped Platelets Plt Clumps, EDTA Large Platelets Giant Platelets Platelet Satelliting Plt Morphology Comment RBC Morphology Dimorphic RBCs Polychromasia Hypochromasia Poikilocytosis Anisocytosis Microcytosis Macrocytosis Spherocytes Pappenheimer Bodies Sickle Cells Target Cells Tear Drop Cells Ovalocytes Helmet Cells [place] Bodies [place] Cells Bite Cells Crenated Cell Elliptocytes Acanthocytes (Spur) Rouleaux Hemoglobin C Crystals Schistocytes Malaria parasites Reggie Bodies Hem Pathologist Commnt Sodium 142 Potassium 4.7 D Chloride 99.4 Carbon Dioxide 23 Anion Gap 24 BUN 49 H Creatinine 5.0 H Estimated GFR 11 BUN/Creatinine Ratio 10 Glucose 211 H POC Glucose Calcium 8.6 Phosphorus 5.30 H D Urine Total Volume Urine Creatinine Height (in) Weight (lb) Creatinine Clearance Immunofix Electrophor Miscellaneous Test Medications & Allergies - Medications Allergies/Adverse Reactions: Allergies NSAIDS (Non-Steroidal Anti-Inflamma Adverse Reaction (Verified 01/02/17 05:56) Unknown Tetracyclines Adverse Reaction (Verified 09/26/14 12:09) Unknown Home Medications: Home Medications Medication Instructions Recorded Confirmed Last Taken Type Ergocalciferol [Vitamin D2] 50,000 unit PO QWEEK capsule 09/25/16 10/17/18 Unknown Rx Latanoprost 0.005% 1 drop OP QPM 01/02/17 10/17/18 Unknown History Sodium Bicarbonate 325 mg PO DAILY 01/02/17 10/17/18 Unknown History Clopidogrel [Plavix] 75 mg PO DAILY #30 tablet 01/08/17 10/17/18 Unknown Rx Docusate Sodium [Colace CAP] 100 mg PO BID #60 capsule 01/08/17 10/17/18 Unknown Rx Famotidine [Pepcid] 10 mg PO BID #60 tablet 01/08/17 10/17/18 Unknown Rx Gabapentin [Neurontin] 300 mg PO QHS #30 capsule 01/08/17 10/17/18 Unknown Rx Simvastatin [Zocor TAB] 20 mg PO QHS #60 tablet 01/08/17 10/17/18 Unknown Rx glipiZIDE [Glucotrol] 5 mg PO QDDIAB #60 tablet 01/08/17 10/17/18 Unknown Rx hydrALAZINE [Apresoline TAB] 10 mg PO Q8HR #90 tablet 01/08/17 10/17/18 Unknown Rx levETIRAcetam [Keppra TAB] 500 mg PO BID #60 tablet 01/08/17 10/17/18 Unknown Rx Active Medications: Generic Name Dose Route Start Last Admin Trade Name Freq PRN Reason Stop Dose Admin Clopidogrel Bisulfate 75 mg 10/21/18 11:00 10/22/18 11:34 Plavix PO Not Given QDAY ALLEY Docusate Sodium 100 mg 10/17/18 22:00 10/23/18 02:00 Colace PO Not Given BID ALLEY Ergocalciferol 50,000 unit 10/24/18 10:00 Vitamin D2 PO Sa [facility] Famotidine 20 mg 10/21/18 10:00 10/22/18 11:33 Pepcid PO Not Given DAILY [facility] Gabapentin 300 mg 10/17/18 22:00 10/23/18 02:01 Neurontin PO Not Given QHS [facility] Hydralazine HCl 10 mg 10/17/18 17:00 10/23/18 05:20 Apresoline PO Not Given Q8HR [facility] Hydralazine HCl 10 mg 10/17/18 21:21 Apresoline IV Q4HR PRN Blood Pressure Sodium Chloride 100 mls @ 999 mls/hr 10/17/18 15:08 Nacl 0.9% IV LESLIE PRN Hypotension Insulin Human Lispro 0 unit 10/17/18 22:00 10/22/18 23:04 Humalog SUB-Q 3 unit ACHS ALLEY Administration Protocol Latanoprost 1 drops 10/17/18 18:00 10/20/18 18:12 Latanoprost 0.005% OU 1 drops QPM ALLEY Administration Levetiracetam 500 mg 10/21/18 10:00 10/23/18 02:01 Keppra PO Not Given BID [facility] Metoprolol Tartrate 25 mg 10/20/18 22:00 10/23/18 02:01 Lopressor PO Not Given BID [facility] Sodium Bicarbonate 325 mg 10/17/18 17:00 10/22/18 11:34 Sodium Bicarbonate PO Not Given DAILY [facility]
[2018-10-23 07:40] LABS: Basophils % (Manual) 0 % (0.0-1.8); Eosinophils % (Manual) 0 % (0.0-4.3); Total Cells Counted 100
[2018-10-23 07:42] LABS: Anisocytosis 1+; Ovalocytes Few; Poikilocytosis Few
[2018-10-23 07:44] LABS: Platelet Estimate Consistent w Auto
[2018-10-23] MEDS: HumaLOG SUB-Q SCH ×4 (08:02→23:58)
[2018-10-23] MEDS ORDERED: XYLOCAINE MPF 2% ONE (08:24)
[2018-10-23] MEDS ORDERED: DIPRIVAN 10 MG/ML IV ONE ×2 (08:25)
[2018-10-23] MEDS ORDERED: HURRICAINE ONE 20% TOPICAL SPRAY MM NR (09:00)
[2018-10-23] MEDS ORDERED: HURRICAINE ONE 20% TOPICAL SPRAY MM (09:29)
--- NOTE | 2018-10-23 09:49 | Anesthesia Consultation ---
Anesthesia Consult and Med Hx Date of service: 10/23/18 - Airway Anesthetic Teeth Evaluation: Poor ROM Head & Neck: Adequate Mental/Hyoid Distance: Adequate Mallampati Class: Class II Intubation Access Assessment: Probably Good - Pre-Operative Health Status ASA Pre-Surgery Classification: ASA4 Proposed Anesthetic Plan: MAC - Pulmonary Hx Smoking: No Hx Asthma: No COPD: No Hx Pneumonia: No Hx Sleep Apnea: No (JEAN PAUL PRE SCREEN HIGH RISK) - Cardiovascular System Hx Hypertension: Yes (CHF/EF 15%) Hx Coronary Artery Disease: Yes Hx Heart Attack/AMI: Yes (Triple bypass 2008) Hx Peripheral Vascular Disease: Yes (LEGS) - Central Nervous System Hx Seizures: Yes (LAST SEIZURE 09/2015) CVA: Yes ("SEVERAL MINI STROKES"-GENERALIZED WEAKNESS) Hx Psychiatric Problems: Yes (Dementia) - Gastrointestinal Hx Gastroesophageal Reflux Disease: Yes - Endocrine Hx Renal Disease: Yes (CKD4) Hx End Stage Renal Disease: Yes Hx Insulin Dependent Diabetes: Yes - Other Systems Hx Cancer: No - Additional Comments Anesthesia Medical History Comments: OA
[2018-10-23] MEDS ORDERED: NACL 0.9% 500 ML 500 ML IV SCH (10:00)
[2018-10-23] MEDS: PEPCID PO SCH (10:03)
[2018-10-23] MEDS: PLAVIX PO SCH (10:03)
[2018-10-23] MEDS: SODIUM BICARBONATE PO SCH (10:04)
[2018-10-23] MEDS ORDERED: NACL 0.9% 500 ML 500 ML IV ONE (11:28)
[2018-10-23] MEDS ORDERED: NEO-SYNEPHRINE 100 MG in NACL 0.9% 90 ML IV SCH (11:30)
[2018-10-23 11:33] LABS: Creatinine,Urine 196.7 mg/dL (0.1-20.0)
--- NOTE | 2018-10-23 11:34 | Event Note ---
Date: 10/23/18 EDINSON done without complications - no cardiac source of emboli and no evidence of endocarditis, LVEF 5-10% Post EDINSON blood pressure remained low after IV NS bolus and several rounds of phenylephrine IV push administered by anesthesia staff. Discussed with ICU attending. Will transfer patient to ICU, start on neosynephrine drip. She will require central line if pressors needed for a long time
[2018-10-23] MEDS ORDERED: LEVOPHED DRIP 4 MG/NS 250 ML 4 MG/250 ML BAG IV SCH (11:36)
[2018-10-23 11:52] LABS: Creatinine 24 Hour,Urine 0.1 (0.8-2.8)
--- NOTE | 2018-10-23 11:58 | Progress Note ---
Assessment and Plan Assessment and plan: Patient is a 63 yo woman with hypertension, dm type 2, gerd, cva, dementia, cad s/p cabg, seizure disorder, OA and CKD 4 (last Cr here was 2.2 on 01/08/2017) who presented to [facility] with AMS x 3 days. She was admitted for severe renal failure/uremic encephalopathy with hyperkalemia. Creatinine was found to be 5.6. She underwent emergent Hemodialysis. She was found after being alone in the house for two day a * CT head without contrast IMPRESSION: 1. Recent infarcts in the left MCA and left LENS FINISHER territories. Although there is no volume loss associated with LENS FINISHER infarct, the hypoattenuation of the parenchyma and loss of laboy-white differentiation is more conspicuous, suggesting this may be an older infarct. 2. No acute hemorrhage. Report of these findings was called to Dr. Novak in the emergency department at the time of dictation. Subacute CVA, -allergic to aspirin, onplavix, cannot give statin due to elevated LFTs MRA brain shows Abscense of flow in left post cereberal artery, MRA neck neg, carotid doppler neg embolic workup in progress, neurology consult appreciated, EDINSON performed on 10/23, developed hypotension after which she was transferred to the ICU, no clots or PFO seen on EDINSON Acute metabolic encephalopathy, improving, likely due to TUNDE and cva ARF/CKD 4 vasomotor +ATN: continue HD watch for signs of renal recovery Hyperkalemia: improved with HD Hx of cad, sp cabg. new onset systolic chf -Wide complex tachycardia -med mgt per cardiology, maintain electrolytes with HD to prevent further arrythmias -had normal EF in 2017, now has EF of 15% Glaucoma: continue latanoprost eyedrops Vitamin D deficiency: Continue vitamin D Hyperlipidemia: Continue statins Peripheral neuropathy: Continue gabapentin Seizure disorder: Continue Keppra Hypertension: Continue antihypertensives DVT prophylaxis: heparin and GI prophylaxis dispo; to snf, case dw with her sister Annabelle at [phone] CCT 33 mins History Interval history: Left-sided weakness Review of systems Constitutional: No fevers, no malaise, no joint pains CVS: No chest pain, no orthopnea, no dyspnea on exertion, no pedal edema GI: No abdominal pain, no diarrhea, no vomiting, no constipation Respiratory: no wheezing, no coughing Hospitalist Physical - Physical exam Narrative exam: General.: Appears chronically ill HEENT: Moist mucous membranes, extraocular muscles intact, no lymphadenopathy Neck: supple Cardiac: S1-S2 heard Lungs: clear to auscultation bilaterally Abdomen: soft , nontender, nondistended, bowel sounds positive Extremities: no edema clubbing or cyanosis Skin: no rash or lesions Neurologic: Left-sided weakness Psych: calm, and cooperative - Constitutional Vitals: Temp Pulse Resp BP Pulse Ox 97.5 F L 94 H 20 84/54 95 10/23/18 10:43 10/23/18 11:42 10/23/18 11:42 10/23/18 11:42 10/23/18 11:42 General appearance: Present: no acute distress Results - Labs CBC & Chem 7: 10/24/18 04:50 10/25/18 11:31 Labs: Laboratory Last Values WBC 10.6 K/mm3 (4.5-11.0) 10/23/18 05:24 RBC 3.49 M/mm3 (3.65-5.03) L 10/23/18 05:24 Hgb 10.8 gm/dl (10.1-14.3) 10/23/18 05:24 Hct 33.9 % (30.3-42.9) 10/23/18 05:24 MCV 97 fl (79-97) 10/23/18 05:24 MCH 31 pg (28-32) 10/23/18 05:24 MCHC 32 % (30-34) 10/23/18 05:24 RDW 16.7 % (13.2-15.2) H 10/23/18 05:24 Plt Count 149 K/mm3 (140-440) 10/23/18 05:24 Lymph % (Auto) 16.7 % (13.4-35.0) 10/21/18 05:57 Clarke % (Auto) 9.6 % (0.0-7.3) H 10/21/18 05:57 Eos % (Auto) 2.0 % (0.0-4.3) 10/21/18 05:57 Baso % (Auto) 0.4 % (0.0-1.8) 10/21/18 05:57 Lymph # 1.2 K/mm3 (1.2-5.4) 10/21/18 05:57 Clarke # 0.7 K/mm3 (0.0-0.8) 10/21/18 05:57 Eos # 0.1 K/mm3 (0.0-0.4) 10/21/18 05:57 Baso # 0.0 K/mm3 (0.0-0.1) 10/21/18 05:57 Add Manual Diff Complete 10/23/18 05:24 Total Counted 100 10/23/18 05:24 Seg Neutrophils % 71.3 % (40.0-70.0) H 10/21/18 05:57 Seg Neuts % (Manual) 88.0 % (40.0-70.0) H 10/23/18 05:24 0 % 10/23/18 05:24 6.0 % (13.4-35.0) L 10/23/18 05:24 Reactive Lymphs % (Man) 0 % 10/23/18 05:24 5.0 % (0.0-7.3) 10/23/18 05:24 0 % (0.0-4.3) 10/23/18 05:24 0 % (0.0-1.8) 10/23/18 05:24 1.0 % 10/23/18 05:24 0 % 10/23/18 05:24 0 % 10/23/18 05:24 0 % 10/23/18 05:24 Nucleated RBC % Not Reportable 10/23/18 05:24 Seg Neutrophils # 5.3 K/mm3 (1.8-7.7) 10/21/18 05:57 Seg Neutrophils # Man 9.3 K/mm3 (1.8-7.7) H 10/23/18 05:24 Band Neutrophils # 0.0 K/mm3 10/23/18 05:24 0.6 K/mm3 (1.2-5.4) L 10/23/18 05:24 Abs React Lymphs (Man) 0.0 K/mm3 10/23/18 05:24 0.5 K/mm3 (0.0-0.8) 10/23/18 05:24 0.0 K/mm3 (0.0-0.4) 10/23/18 05:24 0.0 K/mm3 (0.0-0.1) 10/23/18 05:24 0.1 K/mm3 10/23/18 05:24 0.0 K/mm3 10/23/18 05:24 0.0 K/mm3 10/23/18 05:24 Blast Cells # 0.0 K/mm3 10/23/18 05:24 Pathologist Review 10/19/18 05:20 WBC Morphology Not Reportable 10/23/18 05:24 Hypersegmented Neuts Not Reportable 10/23/18 05:24 Hyposegmented Neuts Not Reportable 10/23/18 05:24 Hypogranular Neuts Not Reportable 10/23/18 05:24 Not Reportable 10/23/18 05:24 Not Reportable 10/23/18 05:24 Not Reportable 10/23/18 05:24 Not Reportable 10/23/18 05:24 Not Reportable 10/23/18 05:24 Not Reportable 10/23/18 05:24 Consistent w auto 10/23/18 05:24 Not Reportable 10/23/18 05:24 Plt Clumps, EDTA Not Reportable 10/23/18 05:24 Not Reportable 10/23/18 05:24 Not Reportable 10/23/18 05:24 Not Reportable 10/23/18 05:24 Plt Morphology Comment Not Reportable 10/23/18 05:24 RBC Morphology Not Reportable 10/23/18 05:24 Dimorphic RBCs Not Reportable 10/23/18 05:24 Not Reportable 10/23/18 05:24 Not Reportable 10/23/18 05:24 Few 10/23/18 05:24 1+ 10/23/18 05:24 Not Reportable 10/23/18 05:24 Not Reportable 10/23/18 05:24 Not Reportable 10/23/18 05:24 Not Reportable 10/23/18 05:24 Not Reportable 10/23/18 05:24 Not Reportable 10/23/18 05:24 Not Reportable 10/23/18 05:24 Few 10/23/18 05:24 Not Reportable 10/23/18 05:24 Not Reportable 10/23/18 05:24 Not Reportable 10/23/18 05:24 Not Reportable 10/23/18 05:24 Not Reportable 10/23/18 05:24 Not Reportable 10/23/18 05:24 Not Reportable 10/23/18 05:24 Acanthocytes (Spur) Not Reportable 10/23/18 05:24 Rouleaux Not Reportable 10/23/18 05:24 Not Reportable 10/23/18 05:24 Not Reportable 10/23/18 05:24 Not Reportable 10/23/18 05:24 Not Reportable 10/23/18 05:24 Hem Pathologist Commnt No 10/23/18 05:24 PT 20.6 Sec. (12.2-14.9) H 10/17/18 10:19 INR 1.81 (0.87-1.13) H 10/17/18 10:19 APTT 35.6 Sec. (24.2-36.6) 10/17/18 10:19 18.7 Sec. (15.1-19.6) 10/17/18 10:19 Heparin Anti-Xa, Unfract Negative (Negative) 10/19/18 08:34 POC ABG pH 7.346 (7.35-7.45) L 10/23/18 11:51 POC ABG pCO2 38.2 (35-45) 10/23/18 11:51 POC ABG pO2 116 (80-105) H 10/23/18 11:51 POC ABG HCO3 20.9 (22-26 mml/L) 10/23/18 11:51 POC ABG Total CO2 22 (23-27mmol/L) 10/23/18 11:51 POC ABG O2 Sat 98 10/23/18 11:51 POC ABG Base Excess -5 ((-2) - (+3)mmol/L) 10/23/18 11:51 36 % 10/23/18 11:51 Sodium 142 mmol/L (137-145) 10/23/18 05:24 Potassium 4.7 mmol/L (3.6-5.0) D 10/23/18 05:24 Chloride 99.4 mmol/L (98-107) 10/23/18 05:24 Carbon Dioxide 23 mmol/L (22-30) 10/23/18 05:24 24 mmol/L 10/23/18 05:24 BUN 49 mg/dL (7-17) H 10/23/18 05:24 5.0 mg/dL (0.7-1.2) H 10/23/18 05:24 Estimated GFR 11 ml/min 10/23/18 05:24 10 % 10/23/18 05:24 Glucose 211 mg/dL (65-100) H 10/23/18 05:24 POC Glucose 137 (70-105) H 10/23/18 07:31 Calcium 8.6 mg/dL (8.4-10.2) 10/23/18 05:24 Phosphorus 5.30 mg/dL (2.5-4.5) H D 10/23/18 05:24 Magnesium 1.70 mg/dL (1.7-2.3) 10/20/18 12:22 Iron 55 ug/dL (37-170) 10/19/18 08:34 TIBC 193 mcg/dL (250-450) L 10/19/18 08:34 2450.0 ng/mL (13.0-400.0) H 10/19/18 08:34 0.50 mg/dL (0.1-1.2) 10/20/18 05:07 AST 305 units/L (5-40) H 10/20/18 05:07 ALT 728 units/L (7-56) H 10/20/18 05:07 402 units/L (35-129) H 10/20/18 05:07 44.0 umol/L (25-60) 10/17/18 15:43 892 units/L (91-180) H 10/19/18 08:34 3216 units/L (30-135) H 10/17/18 15:15 4.720 ng/mL (0.00-0.029) H* 10/17/18 Unknown 6.0 g/dL (6.3-8.2) L 10/20/18 05:07 2.9 g/dL (3.9-5) L 10/20/18 05:07 0.9 % 10/20/18 05:07 Triglycerides 102 mg/dL (2-149) 10/17/18 Unknown Cholesterol 198 mg/dL (50-199) 10/17/18 Unknown 116 mg/dL (50-130) 10/17/18 Unknown 88 mg/dL (40-59) H 10/17/18 Unknown 2.25 % 10/17/18 Unknown Vitamin B12 1296 pg/mL (211-911) H 10/19/18 08:34 8.42 ng/mL (7.3-26.0) 10/19/18 08:34 TSH 1.030 mlU/mL (0.270-4.200) 10/17/18 Unknown Free T4 1.26 ng/dL (0.76-1.46) 10/17/18 Unknown Yellow (Yellow) 10/17/18 11:25 Slightly-cloudy (Clear) 10/17/18 11:25 5.0 (5.0-7.0) 10/17/18 11:25 Ur Specific [place] 1.019 (1.003-1.030) 10/17/18 11:25 100 mg/dl mg/dL (Negative) 10/17/18 11:25 150 mg/dL (Negative) 10/17/18 11:25 Tr mg/dL (Negative) 10/17/18 11:25 Sm (Negative) 10/17/18 11:25 Neg (Negative) 10/17/18 11:25 Neg (Negative) 10/17/18 11:25 < 2.0 mg/dL (<2.0) 10/17/18 11:25 Ur Leukocyte Esterase Tr (Negative) 10/17/18 11:25 3.0 /HPF (0.0-6.0) 10/17/18 11:25 2.0 /HPF (0.0-6.0) 10/17/18 11:25 Few /HPF 10/17/18 11:25 None seen (None Seen) 10/17/18 13:16 60 ml 10/21/18 18:19 196.7 mg/dL (0.1-20.0) H 10/21/18 18:19 Ur Creatinine 24 Hour 0.1 (0.8-2.8) L 10/21/18 18:19 Height (in) 62.0 inches 10/20/18 13:45 Weight (lb) 126.5 lbs 10/20/18 13:45 3 10/20/18 13:45 Protein/Creatinin Ratio 0.69 10/17/18 13:16 12 mmol/L 10/17/18 13:34 191 mg/dL (5-11.8) H 10/17/18 13:16 Salicylates < 0.3 mg/dL (2.8-20.0) L 10/17/18 Unknown Acetaminophen < 5.0 ug/mL (10.0-30.0) L 10/17/18 Unknown Plasma/Serum Alcohol < 0.01 % (0-0.07) 10/17/18 Unknown Immunofix Electrophor see below 10/20/18 05:07 Heparin-induced Plt Ab Negative (Negative) 10/19/18 08:34 UF Heparin High Dose 0 % Release 10/19/18 08:34 KAILYN UFH Low Dose 0.1 0 % Release 10/19/18 08:34 KAILYN UFH Low Dose 0.5 0 % Release 10/19/18 08:34 Hepatitis A IgM Ab Non-reactive (NonReactive) 10/17/18 15:15 Hep Bs Antigen Non-reactive (Negative) 10/17/18 15:15 Hep B Core IgM Ab Non-reactive (NonReactive) 10/17/18 15:15 Non-reactive (NonReactive) 10/17/18 15:15 Rare 10/17/18 15:43 Flexitest 1 10/20/18 10:53 Active Medications - Current Medications Current Medications: Generic Name Dose Route Start Last Admin Trade Name Freq PRN Reason Stop Dose Admin Benzocaine 3 spray 10/23/18 09:00 10/23/18 10:08 Hurricaine One 20% Topical [place] MM 10/23/18 15:00 3 spray PREOP NR Administration Clopidogrel Bisulfate 75 mg 10/21/18 11:00 10/22/18 11:34 Plavix PO Not Given QDAY [facility] Docusate Sodium 100 mg 10/17/18 22:00 10/23/18 02:00 Colace PO Not Given BID [facility] Ergocalciferol 50,000 unit 10/24/18 10:00 Vitamin D2 PO Sa [facility] Famotidine 20 mg 10/21/18 10:00 10/22/18 11:33 Pepcid PO Not Given DAILY [facility] Gabapentin 300 mg 10/17/18 22:00 10/23/18 02:01 Neurontin PO Not Given QHS [facility] Hydralazine HCl 10 mg 10/17/18 17:00 10/23/18 05:20 Apresoline PO Not Given Q8HR [facility] Hydralazine HCl 10 mg 10/17/18 21:21 Apresoline IV Q4HR PRN Blood Pressure Sodium Chloride 100 mls @ 999 mls/hr 10/17/18 15:08 Nacl 0.9% IV LESLIE PRN Hypotension Sodium Chloride 500 mls @ 50 mls/hr 10/23/18 10:00 Nacl 0.9% 500 Ml IV DIRECT [place] Phenylephrine HCl 100 mg/ 100 mls @ 3 mls/hr 10/23/18 11:30 Sodium Chloride IV TITR [place] Protocol 50 MCG/MIN Norepinephrine 4 mg in 250 mls @ 7.5 mls/hr 10/23/18 11:36 Levophed Drip 4 Mg/Ns 250 Ml IV 10/24/18 11:35 TITR [place] Protocol 2 MCG/MIN Insulin Human Lispro 0 unit 10/17/18 22:00 10/22/18 23:04 Humalog SUB-Q 3 unit ACHS [facility] Administration Protocol Latanoprost 1 drops 10/17/18 18:00 10/20/18 18:12 Latanoprost 0.005% OU 1 drops QPM [facility] Administration Levetiracetam 500 mg 10/21/18 10:00 10/23/18 02:01 Keppra PO Not Given BID [place] Metoprolol Tartrate 25 mg 10/20/18 22:00 10/23/18 02:01 Lopressor PO Not Given BID [place] Sodium Bicarbonate 325 mg 10/17/18 17:00 10/22/18 11:34 Sodium Bicarbonate PO Not Given DAILY [facility] Nutrition/Malnutrition Assess - Dietary Evaluation Nutrition/Malnutrition Findings: Nutrition Notes Start: 10/18/18 14:28 Freq: Status: Active Protocol: Document 10/21/18 16:35 RM (Rec: 10/21/18 16:45 RM [id number]) Nutrition Notes Initial or Follow up Assessment Current Diagnosis Acute Kidney Injury,CKD(stage I-IV),Coronary Artery Disease, Diabetes,Hypertension,Stroke, Hyperlipidemia Other Pertinent Diagnosis Hx CVA, Acute encephalopathy, Suspected CVA Current Diet [facility] soft, Consistent CHO, Renal w/chopped meat and Nepro 1 daily Labs/Tests Reviewed Pertinent Medications Reviewed Height 5 ft 2 in Weight 54.3 kg [place] Body Weight (kg) 50.00 BMI 21.9 Weight change and time frame Unable to weigh pt d/t bedscale not working Subjective/Other Information [facility] soft w/thin liquids recommended per bedside dysphagia evaluation. Pt confused at time of visit. Per tech pt eats 1 meal daily and drinks the Nepro. Percent of energy/protein needs met: 86%/91% Burn Absent Trauma Absent #1 Nutrition Diagnosis Inadequate oral intake As Evidenced by Signs and Symptoms pt meeting 86% of calorie and 91% of protein needs Diagnosis Progress(for reassessment Resolved documentation) Is patient on ventilator? No Is Patient Ambulatory and/or Out of Bed No REE-(Hiko-St. Jeor-confined to bed) 1266.900 Kcal/Kg value to use for calculation 24 Approximate Energy Requirements Using 1303 kcal/Kg Calculation Used for Recommendations Hiko-St Jeor Additional Notes Protein Needs: 54-68g (0.8-1g/ kg) Fluid Needs: 1 ml/kcal Nutrition Intervention Change Diet Order: Continue current Add Supplement/Snack (indicate name/kcal Nepro 1 daily /protein ) Provides kCal: 425 Provides Protein (gm) 19 Goal #1 Continue to meet at least 75% of calorie and protein needs via PO and ONS intakes Anticipated Discharge Needs: [facility] soft, Consistent CHO diet Follow-Up By: 10/26/18 Additional Comments Follow for PO and ONS intakes
--- NOTE | 2018-10-23 13:01 | Progress Note ---
Assessment and Plan Acute renal failure on chronic kidney disease stage III/IV AG metabolic acidosis Hyperkalemia Metabolic encephalopathy CVA - Renal function reviewed. Serum creatinine 5.0 today, yesterday's was 3.9 - Hemodialysis today for clearance and gentle UF via right IJ perm-catheter - Creatinine clearance was 3 ml/min - Urine eosinophils were negative - Renal US- negative for obstruction - Renally dose medications - Strict I&O monitoring - Obtain daily weights - Assess dialysis needs daily - Consulted case management for outpatient HD placement to [facility] Subjective Date of service: 10/23/18 Principal diagnosis: LOW PLT - ANEMIA Interval history: Patient off floor for procedure. Objective - Vital Signs Vital signs: Vital Signs - 12hr 10/23/18 10/23/18 10/23/18 04:07 07:25 08:20 Temperature 99.6 F 97.5 F L Temperature [ Post-Procedure] Temperature [ Pre-Procedure] Pulse Rate 88 85 Pulse Rate [ Intra-Procedure ] Pulse Rate [ Post-Procedure] Pulse Rate [Pre -Procedure] Respiratory 20 18 Rate Respiratory Rate [Intra- Procedure] Respiratory Rate [Post- Procedure] Respiratory Rate [Pre- Procedure] Blood Pressure 107/63 155/79 Blood Pressure [Intra- Procedure] Blood Pressure [Post-Procedure ] Blood Pressure [Pre-Procedure] O2 Sat by Pulse 100 Oximetry O2 Sat by Pulse Oximetry [ Intra-Procedure ] O2 Sat by Pulse Oximetry [Post -Procedure] O2 Sat by Pulse Oximetry [Pre- Procedure] 10/23/18 10/23/18 10/23/18 09:41 10:05 10:10 Temperature Temperature [ Post-Procedure] Temperature [ 97.7 F Pre-Procedure] Pulse Rate Pulse Rate [ Intra-Procedure ] Pulse Rate [ Post-Procedure] Pulse Rate [Pre 82 82 74 -Procedure] Respiratory Rate Respiratory Rate [Intra- Procedure] Respiratory Rate [Post- Procedure] Respiratory 26 H 22 20 Rate [Pre- Procedure] Blood Pressure Blood Pressure [Intra- Procedure] Blood Pressure [Post-Procedure ] Blood Pressure 100/59 104/61 87/54 [Pre-Procedure] O2 Sat by Pulse Oximetry O2 Sat by Pulse Oximetry [ Intra-Procedure ] O2 Sat by Pulse Oximetry [Post -Procedure] O2 Sat by Pulse 100 96 95 Oximetry [Pre- Procedure] 10/23/18 10/23/18 10/23/18 10:17 10:43 10:56 Temperature Temperature [ 97.5 F L Post-Procedure] Temperature [ Pre-Procedure] Pulse Rate Pulse Rate [ 77 Intra-Procedure ] Pulse Rate [ 88 87 Post-Procedure] Pulse Rate [Pre -Procedure] Respiratory Rate Respiratory 20 Rate [Intra- Procedure] Respiratory 19 20 Rate [Post- Procedure] Respiratory Rate [Pre- Procedure] Blood Pressure Blood Pressure 106/56 [Intra- Procedure] Blood Pressure 94/64 68/50 [Post-Procedure ] Blood Pressure [Pre-Procedure] O2 Sat by Pulse Oximetry O2 Sat by Pulse 100 Oximetry [ Intra-Procedure ] O2 Sat by Pulse 100 93 Oximetry [Post -Procedure] O2 Sat by Pulse Oximetry [Pre- Procedure] 10/23/18 10/23/18 10/23/18 11:06 11:12 11:22 Temperature Temperature [ Post-Procedure] Temperature [ Pre-Procedure] Pulse Rate Pulse Rate [ Intra-Procedure ] Pulse Rate [ 86 138 H 100 H Post-Procedure] Pulse Rate [Pre -Procedure] Respiratory Rate Respiratory Rate [Intra- Procedure] Respiratory 24 33 H 22 Rate [Post- Procedure] Respiratory Rate [Pre- Procedure] Blood Pressure Blood Pressure [Intra- Procedure] Blood Pressure 87/50 128/80 79/52 [Post-Procedure ] Blood Pressure [Pre-Procedure] O2 Sat by Pulse Oximetry O2 Sat by Pulse Oximetry [ Intra-Procedure ] O2 Sat by Pulse 97 92 98 Oximetry [Post -Procedure] O2 Sat by Pulse Oximetry [Pre- Procedure] 10/23/18 10/23/18 10/23/18 11:26 11:42 11:58 Temperature Temperature [ Post-Procedure] Temperature [ Pre-Procedure] Pulse Rate Pulse Rate [ Intra-Procedure ] Pulse Rate [ 93 H 94 H 92 H Post-Procedure] Pulse Rate [Pre -Procedure] Respiratory Rate Respiratory Rate [Intra- Procedure] Respiratory 21 20 22 Rate [Post- Procedure] Respiratory Rate [Pre- Procedure] Blood Pressure Blood Pressure [Intra- Procedure] Blood Pressure 72/60 84/54 88/64 [Post-Procedure ] Blood Pressure [Pre-Procedure] O2 Sat by Pulse Oximetry O2 Sat by Pulse Oximetry [ Intra-Procedure ] O2 Sat by Pulse 100 95 94 Oximetry [Post -Procedure] O2 Sat by Pulse Oximetry [Pre- Procedure] - Lab 10/23/18 05:24 10/23/18 05:24 Most recent lab results Calcium 8.6 mg/dL (8.4-10.2) 10/23/18 05:24 Phosphorus 5.30 mg/dL (2.5-4.5) H D 10/23/18 05:24 Magnesium 1.70 mg/dL (1.7-2.3) 10/20/18 12:22 196.7 mg/dL (0.1-20.0) H 10/21/18 18:19 12 mmol/L 10/17/18 13:34 191 mg/dL (5-11.8) H 10/17/18 13:16 Medications & Allergies - Medications Allergies/Adverse Reactions: Allergies NSAIDS (Non-Steroidal Anti-Inflamma Adverse Reaction (Verified 01/02/17 05:56) Unknown Tetracyclines Adverse Reaction (Verified 09/26/14 12:09) Unknown Home Medications: Home Medications Medication Instructions Recorded Confirmed Last Taken Type Ergocalciferol [Vitamin D2] 50,000 unit PO QWEEK capsule 09/25/16 10/17/18 Unknown Rx Latanoprost 0.005% 1 drop OP QPM 01/02/17 10/17/18 Unknown History Sodium Bicarbonate 325 mg PO DAILY 01/02/17 10/17/18 Unknown History Clopidogrel [Plavix] 75 mg PO DAILY #30 tablet 01/08/17 10/17/18 Unknown Rx Docusate Sodium [Colace CAP] 100 mg PO BID #60 capsule 01/08/17 10/17/18 Unknown Rx Famotidine [Pepcid] 10 mg PO BID #60 tablet 01/08/17 10/17/18 Unknown Rx Gabapentin [Neurontin] 300 mg PO QHS #30 capsule 01/08/17 10/17/18 Unknown Rx Simvastatin [Zocor TAB] 20 mg PO QHS #60 tablet 01/08/17 10/17/18 Unknown Rx glipiZIDE [Glucotrol] 5 mg PO QDDIAB #60 tablet 01/08/17 10/17/18 Unknown Rx hydrALAZINE [Apresoline TAB] 10 mg PO Q8HR #90 tablet 01/08/17 10/17/18 Unknown Rx levETIRAcetam [Keppra TAB] 500 mg PO BID #60 tablet 01/08/17 10/17/18 Unknown Rx Active Medications: Generic Name Dose Route Start Last Admin Trade Name Erich PRN Reason Stop Dose Admin Benzocaine 3 spray 10/23/18 09:00 10/23/18 10:08 Hurricaine One 20% Topical [facility] MM 10/23/18 15:00 3 spray PREOP NR Administration Clopidogrel Bisulfate 75 mg 10/21/18 11:00 10/23/18 10:03 Plavix PO Not Given QDAY [facility] Docusate Sodium 100 mg 10/17/18 22:00 10/23/18 10:03 Colace PO Not Given BID [facility] Ergocalciferol 50,000 unit 10/24/18 10:00 Vitamin D2 PO Sa [facility] Famotidine 20 mg 10/21/18 10:00 10/23/18 10:03 Pepcid PO Not Given DAILY [facility] Gabapentin 300 mg 10/17/18 22:00 10/23/18 02:01 Neurontin PO Not Given QHS [facility] Hydralazine HCl 10 mg 10/17/18 17:00 10/23/18 05:20 Apresoline PO Not Given Q8HR [facility] Hydralazine HCl 10 mg 10/17/18 21:21 Apresoline IV Q4HR PRN Blood Pressure Sodium Chloride 100 mls @ 999 mls/hr 10/17/18 15:08 Nacl 0.9% IV LESLIE PRN Hypotension Sodium Chloride 500 mls @ 50 mls/hr 10/23/18 10:00 Nacl 0.9% 500 Ml IV DIRECT [place] Phenylephrine HCl 100 mg/ 100 mls @ 3 mls/hr 10/23/18 11:30 Sodium Chloride IV TITR [place] Protocol 50 MCG/MIN Norepinephrine 4 mg in 250 mls @ 7.5 mls/hr 10/23/18 11:36 Levophed Drip 4 Mg/Ns 250 Ml IV 10/24/18 11:35 TITR [place] Protocol 2 MCG/MIN Insulin Human Lispro 0 unit 10/17/18 22:00 10/23/18 08:02 Humalog SUB-Q Not Given ACHS [facility] Protocol Latanoprost 1 drops 10/17/18 18:00 10/20/18 18:12 Latanoprost 0.005% OU 1 drops QPM [place] Administration Levetiracetam 500 mg 10/21/18 10:00 10/23/18 10:03 Keppra PO Not Given BID [facility] Metoprolol Tartrate 25 mg 10/20/18 22:00 10/23/18 10:03 Lopressor PO Not Given BID [place] Sodium Bicarbonate 325 mg 10/17/18 17:00 10/23/18 10:04 Sodium Bicarbonate PO Not Given DAILY [place]
--- NOTE | 2018-10-23 13:52 | Anesthesia Day of Surgery ---
Anesthesia Day of Surgery - Day of Surgery Patient Examined: Yes Patient H&P Reviewed: Yes Patient is NPO: Yes
--- NOTE | 2018-10-23 13:53 | Consultation ---
History of Present Illness Consult date: 10/23/18 Requesting physician: SHANTE TRUJILLO Reason for consult: other (Hypotension; ESRD on dialysis) History of present illness: PULMONARY/CCM CONSULT NOTE (Full dictation # [id number]) Please see dictated notes for full details Past History Past Medical History: other (hypertension, diabetes mellitus, GERD, history of previous stroke with residual dementia, coronary artery disease status post CABG, history of seizures, chronic kidney disease) Social history: lives with family Family history: no significant family history Medications and Allergies Allergies Allergy/AdvReac Type Severity Reaction Status Date / Time NSAIDS (Non-Steroidal AdvReac Unknown Verified 01/02/17 05:56 Anti-Inflamma Tetracyclines AdvReac Unknown Verified 09/26/14 12:09 Home Medications Medication Instructions Recorded Confirmed Last Taken Type Ergocalciferol [Vitamin D2] 50,000 unit PO QWEEK capsule 09/25/16 10/17/18 Unknown Rx Latanoprost 0.005% 1 drop OP QPM 01/02/17 10/17/18 Unknown History Sodium Bicarbonate 325 mg PO DAILY 01/02/17 10/17/18 Unknown History Clopidogrel [Plavix] 75 mg PO DAILY #30 tablet 01/08/17 10/17/18 Unknown Rx Docusate Sodium [Colace CAP] 100 mg PO BID #60 capsule 01/08/17 10/17/18 Unknown Rx Famotidine [Pepcid] 10 mg PO BID #60 tablet 01/08/17 10/17/18 Unknown Rx Gabapentin [Neurontin] 300 mg PO QHS #30 capsule 01/08/17 10/17/18 Unknown Rx Simvastatin [Zocor TAB] 20 mg PO QHS #60 tablet 01/08/17 10/17/18 Unknown Rx glipiZIDE [Glucotrol] 5 mg PO QDDIAB #60 tablet 01/08/17 10/17/18 Unknown Rx hydrALAZINE [Apresoline TAB] 10 mg PO Q8HR #90 tablet 01/08/17 10/17/18 Unknown Rx levETIRAcetam [Keppra TAB] 500 mg PO BID #60 tablet 01/08/17 10/17/18 Unknown Rx Active Meds: Active Medications Benzocaine (Hurricaine One 20% Topical Beeson) 3 spray MM PREOP NR Stop: 10/23/18 15:00 Last Admin: 10/23/18 10:08 Dose: 3 spray Documented by: Clopidogrel Bisulfate (Plavix) 75 mg PO QDAY [facility] Last Admin: 10/23/18 10:03 Dose: Not Given Documented by: Docusate Sodium (Colace) 100 mg PO BID [facility] Last Admin: 10/23/18 10:03 Dose: Not Given Documented by: Ergocalciferol (Vitamin D2) 50,000 unit PO Sa [facility] Famotidine (Pepcid) 20 mg PO DAILY [facility] Last Admin: 10/23/18 10:03 Dose: Not Given Documented by: Gabapentin (Neurontin) 300 mg PO QHS [facility] Last Admin: 10/23/18 02:01 Dose: Not Given Documented by: Hydralazine HCl (Apresoline) 10 mg PO Q8HR [facility] Last Admin: 10/23/18 05:20 Dose: Not Given Documented by: Hydralazine HCl (Apresoline) 10 mg IV Q4HR PRN PRN Reason: Blood Pressure Sodium Chloride (Nacl 0.9%) 100 mls @ 999 mls/hr IV LESLIE PRN PRN Reason: Hypotension Sodium Chloride (Nacl 0.9% 500 Ml) 500 mls @ 50 mls/hr IV [place] Phenylephrine HCl 100 mg/ (Sodium Chloride) 100 mls @ 3 mls/hr IV TITR [facility]; Protocol Norepinephrine (Levophed Drip 4 Mg/Ns 250 Ml) 4 mg in 250 mls @ 7.5 mls/hr IV TITR [facility]; Protocol Stop: 10/24/18 11:35 Insulin Human Lispro (Humalog) 0 unit SUB-Q ACHS [facility]; Protocol Last Admin: 10/23/18 11:30 Dose: Not Given Documented by: Latanoprost (Latanoprost 0.005%) 1 drops OU QPM [facility] Last Admin: 10/22/18 18:00 Dose: Not Given Documented by: Levetiracetam (Keppra) 500 mg PO BID [facility] Last Admin: 10/23/18 10:03 Dose: Not Given Documented by: Metoprolol Tartrate (Lopressor) 25 mg PO BID [facility] Last Admin: 10/23/18 10:03 Dose: Not Given Documented by: Sodium Bicarbonate (Sodium Bicarbonate) 325 mg PO DAILY [facility] Last Admin: 10/23/18 10:04 Dose: Not Given Documented by: Physical Examination Vital signs: Vital Signs Temp Pulse Resp BP Pulse Ox 97.7 F 57 L 16 128/78 87 10/17/18 10:10 10/17/18 10:10 10/17/18 10:10 10/17/18 10:10 10/17/18 10:10 Results - Laboratory Findings CBC and BMP: 10/23/18 05:24 10/23/18 05:24 ABG POC ABG pH 7.346 (7.35-7.45) L 10/23/18 11:51 POC ABG pCO2 38.2 (35-45) 10/23/18 11:51 POC ABG pO2 116 (80-105) H 10/23/18 11:51 POC ABG HCO3 20.9 (22-26 mml/L) 10/23/18 11:51 POC ABG Total CO2 22 (23-27mmol/L) 10/23/18 11:51 POC ABG O2 Sat 98 10/23/18 11:51 PT/INR, D-dimer PT 20.6 Sec. (12.2-14.9) H 10/17/18 10:19 INR 1.81 (0.87-1.13) H 10/17/18 10:19 Abnormal lab findings: Abnormal Labs 10/17/18 10/17/18 10/17/18 10:16 10:19 10:19 RBC Hgb Hct MCV RDW Plt Count Lymph % (Auto) 9.5 L Banks % (Auto) Lymph # 1.0 L Seg Neutrophils % 84.7 H Seg Neuts % (Manual) Lymphocytes % (Manual) Monocytes % (Manual) Nucleated RBC % Seg Neutrophils # 8.7 H Seg Neutrophils # Man Lymphocytes # (Manual) PT 20.6 H INR 1.81 H POC ABG pH POC ABG pO2 Potassium Chloride Carbon Dioxide BUN Creatinine Glucose POC Glucose 277 H Calcium Phosphorus TIBC Ferritin AST ALT Alkaline Phosphatase Lactate Dehydrogenase Total Creatine Kinase Troponin T Total Protein Albumin HDL Cholesterol Vitamin B12 Urine Creatinine Ur Creatinine 24 Hour Urine Total Protein Salicylates Acetaminophen 10/17/18 10/17/18 10/17/18 13:14 13:16 13:34 RBC Hgb Hct MCV RDW Plt Count Lymph % (Auto) Banks % (Auto) Lymph # Seg Neutrophils % Seg Neuts % (Manual) Lymphocytes % (Manual) Monocytes % (Manual) Nucleated RBC % Seg Neutrophils # Seg Neutrophils # Man Lymphocytes # (Manual) PT INR POC ABG pH POC ABG pO2 Potassium Chloride Carbon Dioxide BUN Creatinine Glucose POC Glucose 330 H Calcium Phosphorus TIBC Ferritin AST ALT Alkaline Phosphatase Lactate Dehydrogenase Total Creatine Kinase Troponin T Total Protein Albumin HDL Cholesterol Vitamin B12 Urine Creatinine 276.0 H 271.1 H Ur Creatinine 24 Hour Urine Total Protein 191 H Salicylates Acetaminophen 10/17/18 10/17/18 10/17/18 15:15 21:03 Unknown RBC Hgb Hct MCV RDW Plt Count Lymph % (Auto) Banks % (Auto) Lymph # Seg Neutrophils % Seg Neuts % (Manual) Lymphocytes % (Manual) Monocytes % (Manual) Nucleated RBC % Seg Neutrophils # Seg Neutrophils # Man Lymphocytes # (Manual) PT INR POC ABG pH POC ABG pO2 Potassium 6.6 H* Chloride Carbon Dioxide 10 L BUN 111 H Creatinine 6.5 H Glucose 351 H POC Glucose 143 H Calcium Phosphorus TIBC Ferritin AST ALT Alkaline Phosphatase Lactate Dehydrogenase Total Creatine Kinase 3216 H Troponin T 4.720 H* Total Protein Albumin HDL Cholesterol 88 H Vitamin B12 Urine Creatinine Ur Creatinine 24 Hour Urine Total Protein Salicylates Acetaminophen 10/17/18 10/17/18 10/18/18 Unknown Unknown 07:29 RBC Hgb Hct MCV RDW Plt Count Lymph % (Auto) Banks % (Auto) Lymph # Seg Neutrophils % Seg Neuts % (Manual) Lymphocytes % (Manual) Monocytes % (Manual) Nucleated RBC % Seg Neutrophils # Seg Neutrophils # Man Lymphocytes # (Manual) PT INR POC ABG pH POC ABG pO2 Potassium Chloride Carbon Dioxide BUN Creatinine Glucose POC Glucose 120 H Calcium Phosphorus TIBC Ferritin AST ALT Alkaline Phosphatase Lactate Dehydrogenase Total Creatine Kinase Troponin T Total Protein Albumin HDL Cholesterol Vitamin B12 Urine Creatinine Ur Creatinine 24 Hour Urine Total Protein Salicylates < 0.3 L Acetaminophen < 5.0 L 10/18/18 10/18/18 10/18/18 09:09 09:09 12:21 RBC 3.28 L Hgb Hct MCV RDW Plt Count 125 L Lymph % (Auto) 13.2 L Banks % (Auto) Lymph # 1.1 L Seg Neutrophils % 80.7 H Seg Neuts % (Manual) Lymphocytes % (Manual) Monocytes % (Manual) Nucleated RBC % Seg Neutrophils # Seg Neutrophils # Man Lymphocytes # (Manual) PT INR POC ABG pH POC ABG pO2 Potassium Chloride 97.9 L Carbon Dioxide 20 L D BUN 38 H Creatinine 3.2 H D Glucose 207 H POC Glucose 180 H Calcium Phosphorus TIBC Ferritin AST ALT Alkaline Phosphatase Lactate Dehydrogenase Total Creatine Kinase Troponin T Total Protein Albumin HDL Cholesterol Vitamin B12 Urine Creatinine Ur Creatinine 24 Hour Urine Total Protein Salicylates Acetaminophen 10/18/18 10/18/18 10/19/18 17:14 20:50 05:20 RBC 3.46 L Hgb Hct MCV 98 H RDW 16.4 H Plt Count 55 L Lymph % (Auto) Banks % (Auto) Lymph # Seg Neutrophils % Seg Neuts % (Manual) Lymphocytes % (Manual) Monocytes % (Manual) 9.0 H Nucleated RBC % 4.0 H Seg Neutrophils # Seg Neutrophils # Man Lymphocytes # (Manual) PT INR POC ABG pH POC ABG pO2 Potassium Chloride Carbon Dioxide BUN Creatinine Glucose POC Glucose 256 H 335 H Calcium Phosphorus TIBC Ferritin AST ALT Alkaline Phosphatase Lactate Dehydrogenase Total Creatine Kinase Troponin T Total Protein Albumin HDL Cholesterol Vitamin B12 Urine Creatinine Ur Creatinine 24 Hour Urine Total Protein Salicylates Acetaminophen 10/19/18 10/19/18 10/19/18 05:20 08:34 08:34 RBC Hgb Hct MCV RDW Plt Count Lymph % (Auto) Banks % (Auto) Lymph # Seg Neutrophils % Seg Neuts % (Manual) Lymphocytes % (Manual) Monocytes % (Manual) Nucleated RBC % Seg Neutrophils # Seg Neutrophils # Man Lymphocytes # (Manual) PT INR POC ABG pH POC ABG pO2 Potassium Chloride Carbon Dioxide 21 L BUN 52 H Creatinine 4.2 H Glucose 106 H POC Glucose Calcium Phosphorus TIBC 193 L Ferritin 2450.0 H AST ALT Alkaline Phosphatase Lactate Dehydrogenase 892 H Total Creatine Kinase Troponin T Total Protein Albumin HDL Cholesterol Vitamin B12 Urine Creatinine Ur Creatinine 24 Hour Urine Total Protein Salicylates Acetaminophen 10/19/18 10/19/18 10/19/18 08:34 09:06 13:41 RBC Hgb Hct MCV RDW Plt Count Lymph % (Auto) Banks % (Auto) Lymph # Seg Neutrophils % Seg Neuts % (Manual) Lymphocytes % (Manual) Monocytes % (Manual) Nucleated RBC % Seg Neutrophils # Seg Neutrophils # Man Lymphocytes # (Manual) PT INR POC ABG pH POC ABG pO2 Potassium Chloride Carbon Dioxide BUN Creatinine Glucose POC Glucose 141 H 156 H Calcium Phosphorus TIBC Ferritin AST ALT Alkaline Phosphatase Lactate Dehydrogenase Total Creatine Kinase Troponin T Total Protein Albumin HDL Cholesterol Vitamin B12 1296 H Urine Creatinine Ur Creatinine 24 Hour Urine Total Protein Salicylates Acetaminophen 10/19/18 10/19/18 10/20/18 15:53 22:51 05:07 RBC 3.23 L Hgb 10.0 L Hct MCV RDW 15.7 H Plt Count 111 L D Lymph % (Auto) Banks % (Auto) 8.0 H Lymph # Seg Neutrophils % Seg Neuts % (Manual) Lymphocytes % (Manual) Monocytes % (Manual) Nucleated RBC % Seg Neutrophils # Seg Neutrophils # Man Lymphocytes # (Manual) PT INR POC ABG pH POC ABG pO2 Potassium Chloride Carbon Dioxide BUN Creatinine Glucose POC Glucose 193 H 228 H Calcium Phosphorus TIBC Ferritin AST ALT Alkaline Phosphatase Lactate Dehydrogenase Total Creatine Kinase Troponin T Total Protein Albumin HDL Cholesterol Vitamin B12 Urine Creatinine Ur Creatinine 24 Hour Urine Total Protein Salicylates Acetaminophen 10/20/18 10/20/18 10/20/18 05:07 10:44 13:45 RBC Hgb Hct MCV RDW Plt Count Lymph % (Auto) Banks % (Auto) Lymph # Seg Neutrophils % Seg Neuts % (Manual) Lymphocytes % (Manual) Monocytes % (Manual) Nucleated RBC % Seg Neutrophils # Seg Neutrophils # Man Lymphocytes # (Manual) PT INR POC ABG pH POC ABG pO2 Potassium Chloride Carbon Dioxide BUN 32 H Creatinine 3.2 H Glucose 177 H POC Glucose 160 H Calcium 8.0 L Phosphorus TIBC Ferritin AST 305 H ALT 728 H Alkaline Phosphatase 402 H Lactate Dehydrogenase Total Creatine Kinase Troponin T Total Protein 6.0 L Albumin 2.9 L HDL Cholesterol Vitamin B12 Urine Creatinine 157.6 H Ur Creatinine 24 Hour Urine Total Protein Salicylates Acetaminophen 10/20/18 10/20/18 10/21/18 17:19 20:44 05:57 RBC 3.16 L Hgb 10.0 L Hct 29.9 L MCV RDW 15.4 H Plt Count 125 L Lymph % (Auto) Banks % (Auto) 9.6 H Lymph # Seg Neutrophils % 71.3 H Seg Neuts % (Manual) Lymphocytes % (Manual) Monocytes % (Manual) Nucleated RBC % Seg Neutrophils # Seg Neutrophils # Man Lymphocytes # (Manual) PT INR POC ABG pH POC ABG pO2 Potassium Chloride Carbon Dioxide BUN Creatinine Glucose POC Glucose 143 H 234 H Calcium Phosphorus TIBC Ferritin AST ALT Alkaline Phosphatase Lactate Dehydrogenase Total Creatine Kinase Troponin T Total Protein Albumin HDL Cholesterol Vitamin B12 Urine Creatinine Ur Creatinine 24 Hour Urine Total Protein Salicylates Acetaminophen 10/21/18 10/21/18 10/21/18 05:57 07:55 12:05 RBC Hgb Hct MCV RDW Plt Count Lymph % (Auto) [place] % (Auto) Lymph # Seg Neutrophils % Seg Neuts % (Manual) Lymphocytes % (Manual) Monocytes % (Manual) Nucleated RBC % Seg Neutrophils # Seg Neutrophils # Man Lymphocytes # (Manual) PT INR POC ABG pH POC ABG pO2 Potassium Chloride Carbon Dioxide BUN 47 H Creatinine 4.9 H D Glucose 229 H POC Glucose 239 H 446 H Calcium 8.0 L Phosphorus TIBC Ferritin AST ALT Alkaline Phosphatase Lactate Dehydrogenase Total Creatine Kinase Troponin T Total Protein Albumin HDL Cholesterol Vitamin B12 Urine Creatinine Ur Creatinine 24 Hour Urine Total Protein Salicylates Acetaminophen 10/21/18 10/21/18 10/22/18 15:40 18:19 00:45 RBC Hgb Hct MCV RDW Plt Count Lymph % (Auto) [place] % (Auto) Lymph # Seg Neutrophils % Seg Neuts % (Manual) Lymphocytes % (Manual) Monocytes % (Manual) Nucleated RBC % Seg Neutrophils # Seg Neutrophils # Man Lymphocytes # (Manual) PT INR POC ABG pH POC ABG pO2 Potassium Chloride Carbon Dioxide BUN Creatinine Glucose POC Glucose 263 H 179 H Calcium Phosphorus TIBC Ferritin AST ALT Alkaline Phosphatase Lactate Dehydrogenase Total Creatine Kinase Troponin T Total Protein Albumin HDL Cholesterol Vitamin B12 Urine Creatinine 196.7 H Ur Creatinine 24 Hour 0.1 L Urine Total Protein Salicylates Acetaminophen 10/22/18 10/22/18 10/22/18 06:24 06:24 12:47 RBC 3.17 L Hgb 9.9 L Hct MCV RDW 15.7 H Plt Count 134 L Lymph % (Auto) Banks % (Auto) Lymph # Seg Neutrophils % Seg Neuts % (Manual) 78.0 H Lymphocytes % (Manual) Monocytes % (Manual) Nucleated RBC % Seg Neutrophils # Seg Neutrophils # Man 8.3 H Lymphocytes # (Manual) PT INR POC ABG pH POC ABG pO2 Potassium Chloride Carbon Dioxide BUN 33 H Creatinine 3.9 H Glucose 171 H POC Glucose 210 H Calcium Phosphorus TIBC Ferritin AST ALT Alkaline Phosphatase Lactate Dehydrogenase Total Creatine Kinase Troponin T Total Protein Albumin HDL Cholesterol Vitamin B12 Urine Creatinine Ur Creatinine 24 Hour Urine Total Protein Salicylates Acetaminophen 10/22/18 10/22/18 10/23/18 18:33 21:58 05:24 RBC 3.49 L Hgb Hct MCV RDW 16.7 H Plt Count Lymph % (Auto) Banks % (Auto) Lymph # Seg Neutrophils % Seg Neuts % (Manual) 88.0 H Lymphocytes % (Manual) 6.0 L Monocytes % (Manual) Nucleated RBC % Seg Neutrophils # Seg Neutrophils # Man 9.3 H Lymphocytes # (Manual) 0.6 L PT INR POC ABG pH POC ABG pO2 Potassium Chloride Carbon Dioxide BUN Creatinine Glucose POC Glucose 176 H 230 H Calcium Phosphorus TIBC Ferritin AST ALT Alkaline Phosphatase Lactate Dehydrogenase Total Creatine Kinase Troponin T Total Protein Albumin HDL Cholesterol Vitamin B12 Urine Creatinine Ur Creatinine 24 Hour Urine Total Protein Salicylates Acetaminophen 10/23/18 10/23/18 10/23/18 05:24 07:31 11:51 RBC Hgb Hct MCV RDW Plt Count Lymph % (Auto) [place] % (Auto) Lymph # Seg Neutrophils % Seg Neuts % (Manual) Lymphocytes % (Manual) Monocytes % (Manual) Nucleated RBC % Seg Neutrophils # Seg Neutrophils # Man Lymphocytes # (Manual) PT INR POC ABG pH 7.346 L POC ABG pO2 116 H Potassium Chloride Carbon Dioxide BUN 49 H Creatinine 5.0 H Glucose 211 H POC Glucose 137 H Calcium Phosphorus 5.30 H D TIBC Ferritin AST ALT Alkaline Phosphatase Lactate Dehydrogenase Total Creatine Kinase Troponin T Total Protein Albumin HDL Cholesterol Vitamin B12 Urine Creatinine Ur Creatinine 24 Hour Urine Total Protein Salicylates Acetaminophen
--- NOTE | 2018-10-23 15:03 | XRay Report ---
CHEST 1 VIEW 10/23/2018 2:17 PM INDICATION / CLINICAL INFORMATION: hypoxemia. COMPARISON: Chest x-ray on 01/03/2017. FINDINGS: SUPPORT DEVICES: Right IJ central venous catheter is present with the tip projecting over the right a trium. Feeding tube is seen projecting over the body of the stomach. HEART / MEDIASTINUM: No significant abnormality. LUNGS / PLEURA: Retrocardiac opacity likely reflecting a small pleural effusion and associated atelec tasis. No pneumothorax. ADDITIONAL FINDINGS: No significant additional findings. IMPRESSION: 1. Retrocardiac opacity is present likely reflecting a small pleural effusion and associated atelecta sis. Signer Name: Antonio Ward MD Signed: 10/23/2018 2:59 PM Workstation Name: [id number]
--- NOTE | 2018-10-23 15:07 | XRay Report ---
ABDOMEN ONE VIEW INDICATION / CLINICAL INFORMATION: NGT insertion. COMPARISON: None available. FINDINGS: A feeding tube is present with the tip superimposed over the expected position of the gastric body Signer Name: Eric Steele MD FACDale Signed: 10/23/2018 3:02 PM Workstation Name: [id number]
[2018-10-23] MEDS: LATANOPROST 0.005% OU SCH (18:00)
[2018-10-23] MEDS ORDERED: NACL 0.9% 1000 ML 1,000 ML ONE (18:26)
--- NOTE | 2018-10-23 22:43 | Progress Note ---
Assessment and Plan Patient is a 63-year-old woman with a history of hypertension, diabetes mellitus, GERD, history of previous stroke with residual dementia, coronary artery disease status post CABG, history of seizures, chronic kidney disease. According the patient's clinical findings, the patient has had bilateral acute infarcts, likely cardiogenic in origin, as is seen on MRI. Plan: 1.Stroke: - Likely cardio-embolic, as b/l infarcts seen on MRI. - MRA head/neck did not reveal any significant stenosis - Echo: EF 10-15%, bubble study negative, LA moderately dilated - EDINSON did not reveal any evidence of intracardiac thrombi - No A-fib noted on telemetry thus far - LDL 116, however LFTs elevated, and therefore will not initiate statin at this time. -Secondary Prevention: - Continue current antiplatelet at this time. - If patient has evidence of a-fib, would recommend for anti-coagulation to be started 14 days after stroke, which would be approximately 10/31/18. - Telemetry monitoring while in house. - PT and OT evaluation of mobility. Speech therapy consultation for swallow evaluation. DVT prophylaxis: Recommend Lovenox. - If no atrial fibrillation detected during this admission, patient will likely need 30 day cardiac monitoring as outpatient, and may further need implantable loop recorder to monitor for any atrial fibrillation long-term. 2. Hypertension: -Recommend BP goal of normotension, and it is and has been greater than 48 hours since onset of stroke symptoms. -Will sign off, as I am not covering the weekend. Please re-consult neurologist that is covering tomorrow, as patient will require neurologic monitoring. Amadeo Gunderson MD Neurology Subjective Date of service: 10/23/18 Principal diagnosis: Stroke Interval history: Patient was transferred to ICU due to hypotension. No change in mental status. Objective - Exam Narrative Exam: Gen: no distress, patient nonverbal Neck: no JVD, masses, or bruits HEENT: atraumatic, sclera anicteric CV RRR Respiratory: CTAB Abd: soft, non-tender, non-distended Ext: no edema Neurological Examination: Mental status: Awake, nonverbal, not following commands, w/d to pain in all extremities Language: nonverbal CN: pupils ERR, EOMi unable to be assessed V1-3 unable to be assessed No droop Motor system: w/d to pain in all extremities Reflexes: 3+ in biceps/brachioradialis/triceps/patellar/ankle Sensory: Grossly symmetric Coord: No tremor, unable to assess FTN and HTS Gait: deferred - Vital Sign Vital Signs - 12hr 10/23/18 10/23/18 10/23/18 10:43 10:56 11:06 Temperature Temperature [ 97.5 F L Post-Procedure] Pulse Rate Pulse Rate [ From Monitor] Pulse Rate [ Left Radial] Pulse Rate [ 88 87 86 Post-Procedure] Pulse Rate [ Right Popliteal ] Respiratory Rate Respiratory 19 20 24 Rate [Post- Procedure] Blood Pressure Blood Pressure 94/64 68/50 87/50 [Post-Procedure ] O2 Sat by Pulse Oximetry O2 Sat by Pulse Oximetry [ Anterior Bilateral Throughout] O2 Sat by Pulse 100 93 97 Oximetry [Post -Procedure] 10/23/18 10/23/18 10/23/18 11:12 11:22 11:26 Temperature Temperature [ Post-Procedure] Pulse Rate Pulse Rate [ From Monitor] Pulse Rate [ Left Radial] Pulse Rate [ 138 H 100 H 93 H Post-Procedure] Pulse Rate [ Right Popliteal ] Respiratory Rate Respiratory 33 H 22 21 Rate [Post- Procedure] Blood Pressure Blood Pressure 128/80 79/52 72/60 [Post-Procedure ] O2 Sat by Pulse Oximetry O2 Sat by Pulse Oximetry [ Anterior Bilateral Throughout] O2 Sat by Pulse 92 98 100 Oximetry [Post -Procedure] 10/23/18 10/23/18 10/23/18 11:42 11:58 12:22 Temperature Temperature [ Post-Procedure] Pulse Rate 92 H Pulse Rate [ From Monitor] Pulse Rate [ Left Radial] Pulse Rate [ 94 H 92 H Post-Procedure] Pulse Rate [ Right Popliteal ] Respiratory 12 Rate Respiratory 20 22 Rate [Post- Procedure] Blood Pressure 106/68 Blood Pressure 84/54 88/64 [Post-Procedure ] O2 Sat by Pulse Oximetry O2 Sat by Pulse Oximetry [ Anterior Bilateral Throughout] O2 Sat by Pulse 95 94 Oximetry [Post -Procedure] 10/23/18 10/23/18 10/23/18 12:30 12:40 12:50 Temperature Temperature [ Post-Procedure] Pulse Rate 89 89 87 Pulse Rate [ From Monitor] Pulse Rate [ Left Radial] Pulse Rate [ Post-Procedure] Pulse Rate [ Right Popliteal ] Respiratory 14 13 12 Rate Respiratory Rate [Post- Procedure] Blood Pressure 108/71 112/79 100/65 Blood Pressure [Post-Procedure ] O2 Sat by Pulse 94 96 Oximetry O2 Sat by Pulse Oximetry [ Anterior Bilateral Throughout] O2 Sat by Pulse Oximetry [Post -Procedure] 10/23/18 10/23/18 10/23/18 13:00 13:11 13:21 Temperature Temperature [ Post-Procedure] Pulse Rate 87 90 91 H Pulse Rate [ From Monitor] Pulse Rate [ Left Radial] Pulse Rate [ Post-Procedure] Pulse Rate [ Right P[place]iteal ] Respiratory 13 16 16 Rate Respiratory Rate [Post- Procedure] Blood Pressure 101/67 100/65 110/76 Blood Pressure [Post-Procedure ] O2 Sat by Pulse 100 100 100 Oximetry O2 Sat by Pulse Oximetry [ Anterior Bilateral Throughout] O2 Sat by Pulse Oximetry [Post -Procedure] 10/23/18 10/23/18 10/23/18 13:30 13:41 13:51 Temperature Temperature [ Post-Procedure] Pulse Rate 90 89 92 H Pulse Rate [ From Monitor] Pulse Rate [ Left Radial] Pulse Rate [ Post-Procedure] Pulse Rate [ Right P[place]iteal ] Respiratory 14 13 17 Rate Respiratory Rate [Post- Procedure] Blood Pressure 111/82 111/82 109/77 Blood Pressure [Post-Procedure ] O2 Sat by Pulse 94 100 98 Oximetry O2 Sat by Pulse Oximetry [ Anterior Bilateral Throughout] O2 Sat by Pulse Oximetry [Post -Procedure] 10/23/18 10/23/18 10/23/18 14:00 14:11 14:15 Temperature 98.3 F Temperature [ Post-Procedure] Pulse Rate 85 85 82 Pulse Rate [ From Monitor] Pulse Rate [ Left Radial] Pulse Rate [ Post-Procedure] Pulse Rate [ Right Popliteal ] Respiratory 13 11 L 13 Rate Respiratory Rate [Post- Procedure] Blood Pressure 118/82 118/82 114/80 Blood Pressure [Post-Procedure ] O2 Sat by Pulse Oximetry O2 Sat by Pulse 100 Oximetry [ Anterior Bilateral Throughout] O2 Sat by Pulse Oximetry [Post -Procedure] 10/23/18 10/23/18 10/23/18 14:21 14:30 14:40 Temperature Temperature [ Post-Procedure] Pulse Rate 89 86 82 Pulse Rate [ From Monitor] Pulse Rate [ Left Radial] Pulse Rate [ Post-Procedure] Pulse Rate [ Right P[place]iteal ] Respiratory 18 17 Rate Respiratory Rate [Post- Procedure] Blood Pressure 117/83 114/78 114/80 Blood Pressure [Post-Procedure ] O2 Sat by Pulse 99 100 Oximetry O2 Sat by Pulse Oximetry [ Anterior Bilateral Throughout] O2 Sat by Pulse Oximetry [Post -Procedure] 10/23/18 10/23/18 10/23/18 14:41 14:45 14:51 Temperature Temperature [ Post-Procedure] Pulse Rate 83 81 81 Pulse Rate [ From Monitor] Pulse Rate [ Left Radial] Pulse Rate [ Post-Procedure] Pulse Rate [ Right P[place]iteal ] Respiratory 12 11 L Rate Respiratory Rate [Post- Procedure] Blood Pressure 114/78 114/80 114/80 Blood Pressure [Post-Procedure ] O2 Sat by Pulse 100 97 Oximetry O2 Sat by Pulse Oximetry [ Anterior Bilateral Throughout] O2 Sat by Pulse Oximetry [Post -Procedure] 10/23/18 10/23/18 10/23/18 15:00 15:11 15:15 Temperature Temperature [ Post-Procedure] Pulse Rate 81 82 80 Pulse Rate [ From Monitor] Pulse Rate [ Left Radial] Pulse Rate [ Post-Procedure] Pulse Rate [ Right P[place]iteal ] Respiratory 11 L 15 Rate Respiratory Rate [Post- Procedure] Blood Pressure 115/79 115/79 118/70 Blood Pressure [Post-Procedure ] O2 Sat by Pulse 100 100 Oximetry O2 Sat by Pulse Oximetry [ Anterior Bilateral Throughout] O2 Sat by Pulse Oximetry [Post -Procedure] 10/23/18 10/23/18 10/23/18 15:21 15:30 15:41 Temperature Temperature [ Post-Procedure] Pulse Rate 85 85 83 Pulse Rate [ From Monitor] Pulse Rate [ Left Radial] Pulse Rate [ Post-Procedure] Pulse Rate [ Right P[place]iteal ] Respiratory 21 18 15 Rate Respiratory Rate [Post- Procedure] Blood Pressure 115/79 116/75 116/75 Blood Pressure [Post-Procedure ] O2 Sat by Pulse 100 100 100 Oximetry O2 Sat by Pulse Oximetry [ Anterior Bilateral Throughout] O2 Sat by Pulse Oximetry [Post -Procedure] 10/23/18 10/23/18 10/23/18 15:45 15:51 16:00 Temperature Temperature [ Post-Procedure] Pulse Rate 84 79 84 Pulse Rate [ From Monitor] Pulse Rate [ Left Radial] Pulse Rate [ Post-Procedure] Pulse Rate [ Right Popliteal ] Respiratory 11 L 14 Rate Respiratory Rate [Post- Procedure] Blood Pressure 115/78 115/78 121/82 Blood Pressure [Post-Procedure ] O2 Sat by Pulse 99 99 Oximetry O2 Sat by Pulse Oximetry [ Anterior Bilateral Throughout] O2 Sat by Pulse Oximetry [Post -Procedure] 10/23/18 10/23/18 10/23/18 16:01 16:11 16:15 Temperature Temperature [ Post-Procedure] Pulse Rate 84 83 82 Pulse Rate [ From Monitor] Pulse Rate [ Left Radial] Pulse Rate [ Post-Procedure] Pulse Rate [ Right P[place]iteal ] Respiratory 19 Rate Respiratory Rate [Post- Procedure] Blood Pressure 121/82 121/82 114/73 Blood Pressure [Post-Procedure ] O2 Sat by Pulse 100 Oximetry O2 Sat by Pulse Oximetry [ Anterior Bilateral Throughout] O2 Sat by Pulse Oximetry [Post -Procedure] 10/23/18 10/23/18 10/23/18 16:21 16:30 16:41 Temperature Temperature [ Post-Procedure] Pulse Rate 82 82 82 Pulse Rate [ From Monitor] Pulse Rate [ Left Radial] Pulse Rate [ Post-Procedure] Pulse Rate [ Right P[place]iteal ] Respiratory 14 14 14 Rate Respiratory Rate [Post- Procedure] Blood Pressure 114/73 98/77 98/77 Blood Pressure [Post-Procedure ] O2 Sat by Pulse 100 99 100 Oximetry O2 Sat by Pulse Oximetry [ Anterior Bilateral Throughout] O2 Sat by Pulse Oximetry [Post -Procedure] 10/23/18 10/23/18 10/23/18 16:45 16:51 17:00 Temperature Temperature [ Post-Procedure] Pulse Rate 81 82 82 Pulse Rate [ From Monitor] Pulse Rate [ Left Radial] Pulse Rate [ Post-Procedure] Pulse Rate [ Right P[place]iteal ] Respiratory 13 15 Rate Respiratory Rate [Post- Procedure] Blood Pressure 101/77 101/77 106/76 Blood Pressure [Post-Procedure ] O2 Sat by Pulse 100 99 Oximetry O2 Sat by Pulse Oximetry [ Anterior Bilateral Throughout] O2 Sat by Pulse Oximetry [Post -Procedure] 10/23/18 10/23/18 10/23/18 17:11 17:15 17:21 Temperature Temperature [ Post-Procedure] Pulse Rate 80 78 78 Pulse Rate [ From Monitor] Pulse Rate [ Left Radial] Pulse Rate [ Post-Procedure] Pulse Rate [ Right Popliteal ] Respiratory 13 11 L Rate Respiratory Rate [Post- Procedure] Blood Pressure 106/76 119/77 119/77 Blood Pressure [Post-Procedure ] O2 Sat by Pulse 71 L Oximetry O2 Sat by Pulse Oximetry [ Anterior Bilateral Throughout] O2 Sat by Pulse Oximetry [Post -Procedure] 10/23/18 10/23/18 10/23/18 17:30 17:32 17:40 Temperature Temperature [ Post-Procedure] Pulse Rate 78 78 83 Pulse Rate [ From Monitor] Pulse Rate [ Left Radial] Pulse Rate [ Post-Procedure] Pulse Rate [ Right P[place]iteal ] Respiratory 11 L Rate Respiratory Rate [Post- Procedure] Blood Pressure 121/73 121/73 118/79 Blood Pressure [Post-Procedure ] O2 Sat by Pulse 87 Oximetry O2 Sat by Pulse Oximetry [ Anterior Bilateral Throughout] O2 Sat by Pulse Oximetry [Post -Procedure] 10/23/18 10/23/18 10/23/18 17:41 17:51 18:00 Temperature Temperature [ Post-Procedure] Pulse Rate 78 82 83 Pulse Rate [ 98 H From Monitor] Pulse Rate [ Left Radial] Pulse Rate [ Post-Procedure] Pulse Rate [ Right Popliteal ] Respiratory 14 12 14 Rate Respiratory Rate [Post- Procedure] Blood Pressure 121/73 117/74 118/79 Blood Pressure [Post-Procedure ] O2 Sat by Pulse 100 99 100 Oximetry O2 Sat by Pulse Oximetry [ Anterior Bilateral Throughout] O2 Sat by Pulse Oximetry [Post -Procedure] 10/23/18 10/23/18 10/23/18 18:08 18:11 18:21 Temperature 97.8 F Temperature [ Post-Procedure] Pulse Rate 83 83 82 Pulse Rate [ From Monitor] Pulse Rate [ Left Radial] Pulse Rate [ Post-Procedure] Pulse Rate [ Right Popliteal ] Respiratory 12 11 L 18 Rate Respiratory Rate [Post- Procedure] Blood Pressure 118/79 118/79 118/78 Blood Pressure [Post-Procedure ] O2 Sat by Pulse 100 Oximetry O2 Sat by Pulse 99 Oximetry [ Anterior Bilateral Throughout] O2 Sat by Pulse Oximetry [Post -Procedure] 10/23/18 10/23/18 10/23/18 18:30 18:41 18:51 Temperature Temperature [ Post-Procedure] Pulse Rate 82 84 81 Pulse Rate [ From Monitor] Pulse Rate [ Left Radial] Pulse Rate [ Post-Procedure] Pulse Rate [ Right Popliteal ] Respiratory 16 16 14 Rate Respiratory Rate [Post- Procedure] Blood Pressure 112/77 112/77 111/73 Blood Pressure [Post-Procedure ] O2 Sat by Pulse 98 35 L Oximetry O2 Sat by Pulse Oximetry [ Anterior Bilateral Throughout] O2 Sat by Pulse Oximetry [Post -Procedure] 10/23/18 10/23/18 10/23/18 19:00 19:11 19:21 Temperature Temperature [ Post-Procedure] Pulse Rate 83 82 84 Pulse Rate [ From Monitor] Pulse Rate [ Left Radial] Pulse Rate [ Post-Procedure] Pulse Rate [ Right Popliteal ] Respiratory 14 15 19 Rate Respiratory Rate [Post- Procedure] Blood Pressure 115/77 118/78 118/78 Blood Pressure [Post-Procedure ] O2 Sat by Pulse 98 70 L 95 Oximetry O2 Sat by Pulse Oximetry [ Anterior Bilateral Throughout] O2 Sat by Pulse Oximetry [Post -Procedure] 10/23/18 10/23/18 10/23/18 19:31 19:41 19:51 Temperature Temperature [ Post-Procedure] Pulse Rate 83 79 84 Pulse Rate [ From Monitor] Pulse Rate [ Left Radial] Pulse Rate [ Post-Procedure] Pulse Rate [ Right Popliteal ] Respiratory 16 11 L 14 Rate Respiratory Rate [Post- Procedure] Blood Pressure 118/76 118/76 116/82 Blood Pressure [Post-Procedure ] O2 Sat by Pulse 100 99 Oximetry O2 Sat by Pulse Oximetry [ Anterior Bilateral Throughout] O2 Sat by Pulse Oximetry [Post -Procedure] 10/23/18 10/23/18 10/23/18 20:00 20:01 20:11 Temperature Temperature [ Post-Procedure] Pulse Rate 81 81 Pulse Rate [ 98 H From Monitor] Pulse Rate [ 83 Left Radial] Pulse Rate [ Post-Procedure] Pulse Rate [ 83 Right Popliteal ] Respiratory 14 10 L 13 Rate Respiratory Rate [Post- Procedure] Blood Pressure 98/62 118/78 Blood Pressure [Post-Procedure ] O2 Sat by Pulse 100 94 100 Oximetry O2 Sat by Pulse Oximetry [ Anterior Bilateral Throughout] O2 Sat by Pulse Oximetry [Post -Procedure] 10/23/18 10/23/18 10/23/18 20:21 20:30 20:48 Temperature Temperature [ Post-Procedure] Pulse Rate 85 86 Pulse Rate [ From Monitor] Pulse Rate [ Left Radial] Pulse Rate [ Post-Procedure] Pulse Rate [ Right Popliteal ] Respiratory 12 11 L Rate Respiratory Rate [Post- Procedure] Blood Pressure 98/58 103/58 Blood Pressure [Post-Procedure ] O2 Sat by Pulse 100 100 98 Oximetry O2 Sat by Pulse Oximetry [ Anterior Bilateral Throughout] O2 Sat by Pulse Oximetry [Post -Procedure] - Laboratory Findings CBC and BMP: 10/23/18 05:24 10/23/18 05:24 Abnormal Lab Findings: Abnormal Labs 10/17/18 10/17/18 10/17/18 10:16 10:19 10:19 RBC Hgb Hct MCV RDW Plt Count Lymph % (Auto) 9.5 L [place] % (Auto) Lymph # 1.0 L Seg Neutrophils % 84.7 H Seg Neuts % (Manual) Lymphocytes % (Manual) Monocytes % (Manual) Nucleated RBC % Seg Neutrophils # 8.7 H Seg Neutrophils # Man Lymphocytes # (Manual) PT 20.6 H INR 1.81 H POC ABG pH POC ABG pCO2 POC ABG pO2 Potassium Chloride Carbon Dioxide BUN Creatinine Glucose POC Glucose 277 H Calcium Phosphorus TIBC Ferritin AST ALT Alkaline Phosphatase Lactate Dehydrogenase Total Creatine Kinase Troponin T C-Reactive Protein Total Protein Albumin HDL Cholesterol Vitamin B12 Urine Creatinine Ur Creatinine 24 Hour Urine Total Protein Salicylates Acetaminophen 10/17/18 10/17/18 10/17/18 13:14 13:16 13:34 RBC Hgb Hct MCV RDW Plt Count Lymph % (Auto) [place] % (Auto) Lymph # Seg Neutrophils % Seg Neuts % (Manual) Lymphocytes % (Manual) Monocytes % (Manual) Nucleated RBC % Seg Neutrophils # Seg Neutrophils # Man Lymphocytes # (Manual) PT INR POC ABG pH POC ABG pCO2 POC ABG pO2 Potassium Chloride Carbon Dioxide BUN Creatinine Glucose POC Glucose 330 H Calcium Phosphorus TIBC Ferritin AST ALT Alkaline Phosphatase Lactate Dehydrogenase Total Creatine Kinase Troponin T C-Reactive Protein Total Protein Albumin HDL Cholesterol Vitamin B12 Urine Creatinine 276.0 H 271.1 H Ur Creatinine 24 Hour Urine Total Protein 191 H Salicylates Acetaminophen 10/17/18 10/17/18 10/17/18 15:15 21:03 Unknown RBC Hgb Hct MCV RDW Plt Count Lymph % (Auto) [place] % (Auto) Lymph # Seg Neutrophils % Seg Neuts % (Manual) Lymphocytes % (Manual) Monocytes % (Manual) Nucleated RBC % Seg Neutrophils # Seg Neutrophils # Man Lymphocytes # (Manual) PT INR POC ABG pH POC ABG pCO2 POC ABG pO2 Potassium 6.6 H* Chloride Carbon Dioxide 10 L BUN 111 H Creatinine 6.5 H Glucose 351 H POC Glucose 143 H Calcium Phosphorus TIBC Ferritin AST ALT Alkaline Phosphatase Lactate Dehydrogenase Total Creatine Kinase 3216 H Troponin T 4.720 H* C-Reactive Protein Total Protein Albumin HDL Cholesterol 88 H Vitamin B12 Urine Creatinine Ur Creatinine 24 Hour Urine Total Protein Salicylates Acetaminophen 10/17/18 10/17/18 10/18/18 Unknown Unknown 07:29 RBC Hgb Hct MCV RDW Plt Count Lymph % (Auto) [place] % (Auto) Lymph # Seg Neutrophils % Seg Neuts % (Manual) Lymphocytes % (Manual) Monocytes % (Manual) Nucleated RBC % Seg Neutrophils # Seg Neutrophils # Man Lymphocytes # (Manual) PT INR POC ABG pH POC ABG pCO2 POC ABG pO2 Potassium Chloride Carbon Dioxide BUN Creatinine Glucose POC Glucose 120 H Calcium Phosphorus TIBC Ferritin AST ALT Alkaline Phosphatase Lactate Dehydrogenase Total Creatine Kinase Troponin T C-Reactive Protein Total Protein Albumin HDL Cholesterol Vitamin B12 Urine Creatinine Ur Creatinine 24 Hour Urine Total Protein Salicylates < 0.3 L Acetaminophen < 5.0 L 10/18/18 10/18/18 10/18/18 09:09 09:09 12:21 RBC 3.28 L Hgb Hct MCV RDW Plt Count 125 L Lymph % (Auto) 13.2 L [place] % (Auto) Lymph # 1.1 L Seg Neutrophils % 80.7 H Seg Neuts % (Manual) Lymphocytes % (Manual) Monocytes % (Manual) Nucleated RBC % Seg Neutrophils # Seg Neutrophils # Man Lymphocytes # (Manual) PT INR POC ABG pH POC ABG pCO2 POC ABG pO2 Potassium Chloride 97.9 L Carbon Dioxide 20 L D BUN 38 H Creatinine 3.2 H D Glucose 207 H POC Glucose 180 H Calcium Phosphorus TIBC Ferritin AST ALT Alkaline Phosphatase Lactate Dehydrogenase Total Creatine Kinase Troponin T C-Reactive Protein Total Protein Albumin HDL Cholesterol Vitamin B12 Urine Creatinine Ur Creatinine 24 Hour Urine Total Protein Salicylates Acetaminophen 10/18/18 10/18/18 10/19/18 17:14 20:50 05:20 RBC 3.46 L Hgb Hct MCV 98 H RDW 16.4 H Plt Count 55 L Lymph % (Auto) [place] % (Auto) Lymph # Seg Neutrophils % Seg Neuts % (Manual) Lymphocytes % (Manual) Monocytes % (Manual) 9.0 H Nucleated RBC % 4.0 H Seg Neutrophils # Seg Neutrophils # Man Lymphocytes # (Manual) PT INR POC ABG pH POC ABG pCO2 POC ABG pO2 Potassium Chloride Carbon Dioxide BUN Creatinine Glucose POC Glucose 256 H 335 H Calcium Phosphorus TIBC Ferritin AST ALT Alkaline Phosphatase Lactate Dehydrogenase Total Creatine Kinase Troponin T C-Reactive Protein Total Protein Albumin HDL Cholesterol Vitamin B12 Urine Creatinine Ur Creatinine 24 Hour Urine Total Protein Salicylates Acetaminophen 10/19/18 10/19/18 10/19/18 05:20 08:34 08:34 RBC Hgb Hct MCV RDW Plt Count Lymph % (Auto) [place] % (Auto) Lymph # Seg Neutrophils % Seg Neuts % (Manual) Lymphocytes % (Manual) Monocytes % (Manual) Nucleated RBC % Seg Neutrophils # Seg Neutrophils # Man Lymphocytes # (Manual) PT INR POC ABG pH POC ABG pCO2 POC ABG pO2 Potassium Chloride Carbon Dioxide 21 L BUN 52 H Creatinine 4.2 H Glucose 106 H POC Glucose Calcium Phosphorus TIBC 193 L Ferritin 2450.0 H AST ALT Alkaline Phosphatase Lactate Dehydrogenase 892 H Total Creatine Kinase Troponin T C-Reactive Protein Total Protein Albumin HDL Cholesterol Vitamin B12 Urine Creatinine Ur Creatinine 24 Hour Urine Total Protein Salicylates Acetaminophen 10/19/18 10/19/18 10/19/18 08:34 09:06 13:41 RBC Hgb Hct MCV RDW Plt Count Lymph % (Auto) [place] % (Auto) Lymph # Seg Neutrophils % Seg Neuts % (Manual) Lymphocytes % (Manual) Monocytes % (Manual) Nucleated RBC % Seg Neutrophils # Seg Neutrophils # Man Lymphocytes # (Manual) PT INR POC ABG pH POC ABG pCO2 POC ABG pO2 Potassium Chloride Carbon Dioxide BUN Creatinine Glucose POC Glucose 141 H 156 H Calcium Phosphorus TIBC Ferritin AST ALT Alkaline Phosphatase Lactate Dehydrogenase Total Creatine Kinase Troponin T C-Reactive Protein Total Protein Albumin HDL Cholesterol Vitamin B12 1296 H Urine Creatinine Ur Creatinine 24 Hour Urine Total Protein Salicylates Acetaminophen 10/19/18 10/19/18 10/20/18 15:53 22:51 05:07 RBC 3.23 L Hgb 10.0 L Hct MCV RDW 15.7 H Plt Count 111 L D Lymph % (Auto) [place] % (Auto) 8.0 H Lymph # Seg Neutrophils % Seg Neuts % (Manual) Lymphocytes % (Manual) Monocytes % (Manual) Nucleated RBC % Seg Neutrophils # Seg Neutrophils # Man Lymphocytes # (Manual) PT INR POC ABG pH POC ABG pCO2 POC ABG pO2 Potassium Chloride Carbon Dioxide BUN Creatinine Glucose POC Glucose 193 H 228 H Calcium Phosphorus TIBC Ferritin AST ALT Alkaline Phosphatase Lactate Dehydrogenase Total Creatine Kinase Troponin T C-Reactive Protein Total Protein Albumin HDL Cholesterol Vitamin B12 Urine Creatinine Ur Creatinine 24 Hour Urine Total Protein Salicylates Acetaminophen 10/20/18 10/20/18 10/20/18 05:07 10:44 13:45 RBC Hgb Hct MCV RDW Plt Count Lymph % (Auto) [place] % (Auto) Lymph # Seg Neutrophils % Seg Neuts % (Manual) Lymphocytes % (Manual) Monocytes % (Manual) Nucleated RBC % Seg Neutrophils # Seg Neutrophils # Man Lymphocytes # (Manual) PT INR POC ABG pH POC ABG pCO2 POC ABG pO2 Potassium Chloride Carbon Dioxide BUN 32 H Creatinine 3.2 H Glucose 177 H POC Glucose 160 H Calcium 8.0 L Phosphorus TIBC Ferritin AST 305 H ALT 728 H Alkaline Phosphatase 402 H Lactate Dehydrogenase Total Creatine Kinase Troponin T C-Reactive Protein Total Protein 6.0 L Albumin 2.9 L HDL Cholesterol Vitamin B12 Urine Creatinine 157.6 H Ur Creatinine 24 Hour Urine Total Protein Salicylates Acetaminophen 10/20/18 10/20/18 10/21/18 17:19 20:44 05:57 RBC 3.16 L Hgb 10.0 L Hct 29.9 L MCV RDW 15.4 H Plt Count 125 L Lymph % (Auto) [place] % (Auto) 9.6 H Lymph # Seg Neutrophils % 71.3 H Seg Neuts % (Manual) Lymphocytes % (Manual) Monocytes % (Manual) Nucleated RBC % Seg Neutrophils # Seg Neutrophils # Man Lymphocytes # (Manual) PT INR POC ABG pH POC ABG pCO2 POC ABG pO2 Potassium Chloride Carbon Dioxide BUN Creatinine Glucose POC Glucose 143 H 234 H Calcium Phosphorus TIBC Ferritin AST ALT Alkaline Phosphatase Lactate Dehydrogenase Total Creatine Kinase Troponin T C-Reactive Protein Total Protein Albumin HDL Cholesterol Vitamin B12 Urine Creatinine Ur Creatinine 24 Hour Urine Total Protein Salicylates Acetaminophen 10/21/18 10/21/18 10/21/18 05:57 07:55 12:05 RBC Hgb Hct MCV RDW Plt Count Lymph % (Auto) [place] % (Auto) Lymph # Seg Neutrophils % Seg Neuts % (Manual) Lymphocytes % (Manual) Monocytes % (Manual) Nucleated RBC % Seg Neutrophils # Seg Neutrophils # Man Lymphocytes # (Manual) PT INR POC ABG pH POC ABG pCO2 POC ABG pO2 Potassium Chloride Carbon Dioxide BUN 47 H Creatinine 4.9 H D Glucose 229 H POC Glucose 239 H 446 H Calcium 8.0 L Phosphorus TIBC Ferritin AST ALT Alkaline Phosphatase Lactate Dehydrogenase Total Creatine Kinase Troponin T C-Reactive Protein Total Protein Albumin HDL Cholesterol Vitamin B12 Urine Creatinine Ur Creatinine 24 Hour Urine Total Protein Salicylates Acetaminophen 10/21/18 10/21/18 10/22/18 15:40 18:19 00:45 RBC Hgb Hct MCV RDW Plt Count Lymph % (Auto) [place] % (Auto) Lymph # Seg Neutrophils % Seg Neuts % (Manual) Lymphocytes % (Manual) Monocytes % (Manual) Nucleated RBC % Seg Neutrophils # Seg Neutrophils # Man Lymphocytes # (Manual) PT INR POC ABG pH POC ABG pCO2 POC ABG pO2 Potassium Chloride Carbon Dioxide BUN Creatinine Glucose POC Glucose 263 H 179 H Calcium Phosphorus TIBC Ferritin AST ALT Alkaline Phosphatase Lactate Dehydrogenase Total Creatine Kinase Troponin T C-Reactive Protein Total Protein Albumin HDL Cholesterol Vitamin B12 Urine Creatinine 196.7 H Ur Creatinine 24 Hour 0.1 L Urine Total Protein Salicylates Acetaminophen 10/22/18 10/22/18 10/22/18 06:24 06:24 12:47 RBC 3.17 L Hgb 9.9 L Hct MCV RDW 15.7 H Plt Count 134 L Lymph % (Auto) [place] % (Auto) Lymph # Seg Neutrophils % Seg Neuts % (Manual) 78.0 H Lymphocytes % (Manual) Monocytes % (Manual) Nucleated RBC % Seg Neutrophils # Seg Neutrophils # Man 8.3 H Lymphocytes # (Manual) PT INR POC ABG pH POC ABG pCO2 POC ABG pO2 Potassium Chloride Carbon Dioxide BUN 33 H Creatinine 3.9 H Glucose 171 H POC Glucose 210 H Calcium Phosphorus TIBC Ferritin AST ALT Alkaline Phosphatase Lactate Dehydrogenase Total Creatine Kinase Troponin T C-Reactive Protein Total Protein Albumin HDL Cholesterol Vitamin B12 Urine Creatinine Ur Creatinine 24 Hour Urine Total Protein Salicylates Acetaminophen 10/22/18 10/22/18 10/23/18 18:33 21:58 05:24 RBC 3.49 L Hgb Hct MCV RDW 16.7 H Plt Count Lymph % (Auto) [place] % (Auto) Lymph # Seg Neutrophils % Seg Neuts % (Manual) 88.0 H Lymphocytes % (Manual) 6.0 L Monocytes % (Manual) Nucleated RBC % Seg Neutrophils # Seg Neutrophils # Man 9.3 H Lymphocytes # (Manual) 0.6 L PT INR POC ABG pH POC ABG pCO2 POC ABG pO2 Potassium Chloride Carbon Dioxide BUN Creatinine Glucose POC Glucose 176 H 230 H Calcium Phosphorus TIBC Ferritin AST ALT Alkaline Phosphatase Lactate Dehydrogenase Total Creatine Kinase Troponin T C-Reactive Protein Total Protein Albumin HDL Cholesterol Vitamin B12 Urine Creatinine Ur Creatinine 24 Hour Urine Total Protein Salicylates Acetaminophen 10/23/18 10/23/18 10/23/18 05:24 07:31 11:51 RBC Hgb Hct MCV RDW Plt Count Lymph % (Auto) [place] % (Auto) Lymph # Seg Neutrophils % Seg Neuts % (Manual) Lymphocytes % (Manual) Monocytes % (Manual) Nucleated RBC % Seg Neutrophils # Seg Neutrophils # Man Lymphocytes # (Manual) PT INR POC ABG pH 7.346 L POC ABG pCO2 POC ABG pO2 116 H Potassium Chloride Carbon Dioxide BUN 49 H Creatinine 5.0 H Glucose 211 H POC Glucose 137 H Calcium Phosphorus 5.30 H D TIBC Ferritin AST ALT Alkaline Phosphatase Lactate Dehydrogenase Total Creatine Kinase Troponin T C-Reactive Protein Total Protein Albumin HDL Cholesterol Vitamin B12 Urine Creatinine Ur Creatinine 24 Hour Urine Total Protein Salicylates Acetaminophen 10/23/18 10/23/18 10/23/18 14:59 18:29 20:51 RBC Hgb Hct MCV RDW Plt Count Lymph % (Auto) [place] % (Auto) Lymph # Seg Neutrophils % Seg Neuts % (Manual) Lymphocytes % (Manual) Monocytes % (Manual) Nucleated RBC % Seg Neutrophils # Seg Neutrophils # Man Lymphocytes # (Manual) PT INR POC ABG pH POC ABG pCO2 34.3 L POC ABG pO2 Potassium Chloride Carbon Dioxide BUN Creatinine Glucose POC Glucose 182 H Calcium Phosphorus TIBC Ferritin AST ALT Alkaline Phosphatase Lactate Dehydrogenase Total Creatine Kinase Troponin T C-Reactive Protein 24.10 H Total Protein Albumin HDL Cholesterol Vitamin B12 Urine Creatinine Ur Creatinine 24 Hour Urine Total Protein Salicylates Acetaminophen
--- NOTE | 2018-10-24 04:04 | Consultation ---
PULMONARY CRITICAL CARE CONSULT NOTE CONSULTING PHYSICIAN: Dr. Galeana and Dr. Huerta. REASON FOR CONSULTATION: Hypotension. CHIEF COMPLAINT AND HISTORY OF PRESENT ILLNESS: As follows, patient is a 63-year-old -Irish female with past medical history significant amongst other things for a diagnosis of end-stage renal disease, now on dialysis, but also coronary artery disease and a prior cerebrovascular accident. She was admitted to the hospital on or about the 3rd of this month, 10/17/2018. She was brought in for weakness and altered mental status. There was a concern about new left-sided weakness. The patient was described as noncommunicative and nonverbal at initial presentation. She was evaluated in the Emergency Room and ultimately admitted for emergent dialysis, possible acute CVA. Because her CAT scan showed a subacute left MCA and [employer] territory infarction and she was admitted with acute encephalopathy. The patient apparently was stable enough to be placed on the medical floor. She had a Neurology evaluation or workup. There was a question of a seizure at some point. Today, she was [facility] for a transesophageal echocardiogram to look for possible embolic sources. There was no evidence of emboli; however, she was found to have a left ventricular ejection fraction of 5-10% and became hypotensive. She received a little bit of volume resuscitation about 500 mL with minimal response at that time and required some norepinephrine I believe. We were called at that time to see if she could be admitted to the intensive care unit. When I stopped by to see her, she was resting in bed. She would open her eyes sluggishly to name calling. Blood pressure was actually in the 220s when I first got there, but very soon dipped down to a mean arterial pressure less than 60. She never responded fully, but description meets the same description at presentation. Now with regards to tobacco use/abuse history that is unclear. She did not have any witnessed seizures today. She had no nausea, vomiting, or overt aspiration. There is no report of high-grade fevers or chills. The above is as much of the history of presentation as I have. PAST MEDICAL HISTORY: Significant for hypertension, cerebrovascular accident, coronary artery disease, congestive heart failure, diabetes, gastroesophageal reflux disease; end-stage renal disease, arthritis, history of migraines, history of seizures, history of dementia. PAST SURGICAL HISTORY: She had coronary artery bypass grafting in 2008 triple bypass. MEDICATIONS: She was on at the time I stopped by to see were reviewed, pertinent medications include the following: She was on Plavix 75 mg p.o. daily, Colace 100 mg p.o. b.i.d., vitamin D2 50,000 units p.o. every Friday, Pepcid 20 mg p.o. daily, Neurontin 300 mg p.o. at bedtime, Apresoline 10 mg p.o. q. 8 hours as well as IV hydralazine 10 mg IV q.4 hours p.r.n. elevated blood pressures. She is on insulin via sliding scale, latanoprost eye drops 1 drop to both eyes every night, Keppra 500 mg p.o. b.i.d., Lopressor 25 mg p.o. b.i.d., Levophed drip was going at 2 mcg per minute. She had received, I believe Oscar-Synephrine earlier at 50 mcg per minute, sodium bicarbonate 325 mg p.o. daily. ALLERGIES: NSAIDs AND TETRACYCLINE. Nature of this allergy is unknown. DIET: Thin, chronically ill cachectic woman, acute weight loss or gain history is unknown. FAMILY AND SOCIAL HISTORY: Apparently lives at home, I believe with her family. The records describe her as a never smoker. Also the family denied alcohol or illicit drug use or abuse history. FAMILY HISTORY: Otherwise unknown. REVIEW OF SYSTEMS: Unobtainable secondary to patient's medical and mental condition, otherwise as in the body of history above. PHYSICAL EXAMINATION: VITAL SIGNS: At initial presentation to the Emergency Room, patient was afebrile, temperature 97.7 degrees Fahrenheit, pulse of 57, respiratory rate of 16, blood pressure 128/78, O2 sats of 87 at initial presentation. Inspired oxygen concentration at that time was not recorded. When I saw her, O2 sats were 100%, but that was on 4 liters nasal cannula. She has essentially remained afebrile during this admission with most recent temperature 97.5 degrees Fahrenheit, blood pressure was as low as 68/50. GENERAL: Elderly, chronically ill-looking -Irish female, normocephalic, atraumatic, resting in bed with mild hypoventilation without use of any accessory muscles of respiration. HEAD, EYES, EARS, NOSE, AND THROAT: Anicteric, no conjunctival erythema. Oropharynx was moist. Mallampati #2 oropharynx. No gross jugular venous distention, no thyromegaly. Grossly, no palpable lymph nodes in the supraclavicular or submandibular lymph node chains. LUNGS: Auscultation of both lung [place] unremarkable. At the time of my evaluation, lungs are clear bilaterally with good bilateral breath sounds/air movement. She has a right Perm-A-Cath in the right upper anterior chest wall. ABDOMEN: Soft, flat. Bowel sounds are positive, nontender, no palpable hepatosplenomegaly. EXTREMITIES: Without overt digital clubbing or cyanosis. No pedal edema. Pedal pulses are palpable bilaterally about 2+. The skin is of poor turgor without overt cellulitis or rash. She has what may be early gangrene to the right foot digits being seen by Wound Care currently. NEUROLOGIC: Pupils were equal, round, about 4 mm, sluggishly reactive to light. Extraocular muscle movements could not be assessed. She had spontaneous movements to all extremities, but was not following my prompts. No facial droop and she moved to stimuli all extremities. LABORATORY DATA: From my review were as follows: Admission white cell count 10,300, hemoglobin 11.6, hematocrit 35.9, platelet count 169. INR 1.81. Serum sodium was 139, potassium 6.6, chloride 107, bicarbonate 10, BUN 111 and creatinine 6.5, glucose was 351. Troponin was 4.72 at presentation. TSH was within normal limits. Liver function tests were essentially within normal limits. CPK was at 3216 at presentation. Urinalysis shows trace leukocyte esterase with only 3 white cells per high power field, no bacteria reported. Aspirin, Tylenol, alcohol levels undetected. Hepatitis screen was negative. Today no major changes in electrolytes and in the white cell count. Arterial blood gas showed a pH of 7.35, pCO2 of 38, pO2 of 116 that was on 4 liters nasal cannula. Urine cultures drawn at presentation, nothing grew. She had a CT of the head at presentation as well as an MRI of the brain. The MRI showed multiple areas of ischemia, worrisome for an embolic phenomenon. No hemorrhagic transformation. A 2D echo was also done on the 6th of this month, EF of 10-15%, mild tricuspid regurg, borderline pulmonary hypertension, RV systolic 26 mmHg. ASSESSMENT: 1. Acute on chronic encephalopathy. 2. Hypotension, possibly related to drug effect periprocedurally. 3. End-stage renal disease, on dialysis. 4. Acute hypoxemic respiratory failure. 5. History of hypertension. 6. Acute on chronic cerebrovascular accident. 7. Coronary artery disease. 8. Congestive heart failure with reduced ejection fraction. 9. Diabetes. 10. Gastroesophageal reflux disease. 11. Arthritis. 12. History of seizures. 13. Dementia. 14. Adult failure to thrive. 15. Protein-calorie malnutrition, moderate. PLAN: We will observe her in the Intensive Care Unit overnight. We will wean vasopressors to keep mean arterial pressures greater than or equal to 65 mmHg. I do feel that sedation used for the procedure EDINSON might have contributed somewhat to her relative hypotension, but we cannot rule out an occult sepsis picture, especially in this dialysis patient. I will send two sets of blood cultures, but hold on empiric antibiotic therapy. Oxygen will be weaned to keep sats greater than or equal to over 90%. Aspiration precautions will be maintained. P.r.n. bilevel positive airway pressure ventilation therapy will be given as necessary, especially if she becomes hypercapnic, I will repeat the arterial blood gas a little later tonight. She will also get a stat chest x-ray in light of the hypoxemia. We will look to the destination sign repairer for dialysis for toxin and volume control with ultrafiltration. She will be continued on GI prophylaxis. Fall precautions, neuro checks will be continued. Neurology evaluation will be continued. Chronic kidney disease medications will be continued per the attending physician. Acute coronary syndrome workup will be ongoing by the medical education coordinator. Flu and pneumonia vaccination will be addressed per protocol. Thank you very much for the consult Dr. Huerta and Dr. Galeana. We will follow along and make further recommendations as picture progresses/becomes clearer. At this time, I spent about 45 minutes of critical care time without overlap and excluding any procedural time that may be necessary. She is critically ill at high risk of deterioration including the risk of from cardiopulmonary system deterioration. JOB# [id number] OCHOA/LEANDER FLEMING
[2018-10-24 05:51] LABS: Hematocrit 30.4 % (30.3-42.9); Hemoglobin 9.7 gm/dl (10.1-14.3); Mean Corpuscular HGB Conc 32 % (30-34); Mean Corpuscular Volume 97 fl (79-97); Platelet Count 132 K/mm3 (140-440); Red Blood Count 3.13 M/mm3 (3.65-5.03); Red Cell Distribution Width 16.8 % (13.2-15.2)
[2018-10-24 05:53] LABS: Calcium 8.5 mg/dL (8.4-10.2)
[2018-10-24] MEDS: HumaLOG SUB-Q SCH ×3 (07:53→18:47)
--- NOTE | 2018-10-24 09:53 | Progress Note ---
Assessment and Plan Post procedure hypotension Subacute CVA Acute metabolic encephalopathy ARF/CKD 4 vasomotor +ATN Hyperkalemia: Hx of cad, s/p CABG New onset systolic CHF EF 5-10% Wide complex tachycardia Thrombocytopenia -Cardio-protective measures -Heart failure measures -Supportive HD -VTE prophylaxis -Aspiration precautions, nutrition consult for tube feeding -PT/OT/ST -VTE prophylaxis -Secondary stroke prophylaxis -Life vest -Avoid nephrotoxins -Stable to transfer out of the ICU to telemetry floor for ongoing care Subjective Date of service: 10/24/18 Principal diagnosis: Stroke Interval history: Patient is seen today for: Hypotension requiring vasopressor support. EDINSON done without complications - no cardiac source of emboli and no evidence of endocarditis, LVEF 5-10% Post EDINSON blood pressure remained low after IV NS bolus and several rounds of phenylephrine IV push administered by anesthesia staff. Seen and examined at bedside; 24hour events reviewed; nursing and respiratory care staff consulted; no adverse overnight events reported to me; Blood pressure remains within acceptable range off vasopressor support, no fevers, no vomiting, remains non-verbal. Objective - Exam Narrative Exam: Vitals reviewed General appearance: fatigue, other (Lethargic), chronically ill looking, not in any acute distress EENT: ATNC, small bowel feeding tube in nares Neck: no JVD, supple Respiratory: Decreased AE bilaterally, CTA Cardiology: S1S2 Gastrointestinal: Soft, ND, NT,normoactive bowel sounds Integumentary: warm and dry Neurologic: other (Lethargic), not following commands Musculoskeletal: No edema, no cyanosis, no clubbing Vital Signs - 12hr 10/23/18 10/23/18 10/23/18 22:00 22:01 22:11 Temperature 97.5 F L Pulse Rate 83 84 Pulse Rate [ From Monitor] Pulse Rate [ Left Popliteal] Pulse Rate [ Left Radial] Pulse Rate [ Right Popliteal ] Respiratory 12 11 L Rate Blood Pressure 87/50 87/50 O2 Sat by Pulse 100 95 Oximetry 10/23/18 10/23/18 10/23/18 22:21 22:30 22:41 Temperature Pulse Rate 84 79 81 Pulse Rate [ From Monitor] Pulse Rate [ Left Popliteal] Pulse Rate [ Left Radial] Pulse Rate [ Right Popliteal ] Respiratory 12 13 12 Rate Blood Pressure 90/47 93/55 93/55 O2 Sat by Pulse 100 93 93 Oximetry 10/23/18 10/23/18 10/23/18 22:51 23:00 23:11 Temperature Pulse Rate 81 84 85 Pulse Rate [ From Monitor] Pulse Rate [ Left Popliteal] Pulse Rate [ Left Radial] Pulse Rate [ Right Popliteal ] Respiratory 11 L 13 12 Rate Blood Pressure 96/59 93/69 93/69 O2 Sat by Pulse 91 90 89 Oximetry 10/23/18 10/23/18 10/23/18 23:21 23:30 23:41 Temperature Pulse Rate 83 85 87 Pulse Rate [ From Monitor] Pulse Rate [ Left Popliteal] Pulse Rate [ Left Radial] Pulse Rate [ Right Popliteal ] Respiratory 14 13 18 Rate Blood Pressure 95/60 92/60 95/60 O2 Sat by Pulse 94 82 L 87 Oximetry 10/23/18 10/23/18 10/24/18 23:51 23:59 00:00 Temperature 98.6 F Pulse Rate 86 84 82 Pulse Rate [ 89 From Monitor] Pulse Rate [ 89 Left Popliteal] Pulse Rate [ 89 Left Radial] Pulse Rate [ 89 Right Popliteal ] Respiratory 14 16 12 Rate Blood Pressure 107/70 107/70 113/76 O2 Sat by Pulse 100 100 100 Oximetry 10/24/18 10/24/18 10/24/18 00:11 00:21 00:31 Temperature Pulse Rate 88 89 90 Pulse Rate [ From Monitor] Pulse Rate [ Left Popliteal] Pulse Rate [ Left Radial] Pulse Rate [ Right Popliteal ] Respiratory 20 10 L 19 Rate Blood Pressure 108/73 108/73 108/73 O2 Sat by Pulse 100 96 100 Oximetry 10/24/18 10/24/18 10/24/18 00:41 00:51 01:00 Temperature Pulse Rate 90 90 91 H Pulse Rate [ From Monitor] Pulse Rate [ Left Popliteal] Pulse Rate [ Left Radial] Pulse Rate [ Right Popliteal ] Respiratory 17 12 15 Rate Blood Pressure 108/73 108/73 103/67 O2 Sat by Pulse 100 100 100 Oximetry 10/24/18 10/24/18 10/24/18 01:11 01:21 01:30 Temperature Pulse Rate 90 90 88 Pulse Rate [ From Monitor] Pulse Rate [ Left Popliteal] Pulse Rate [ Left Radial] Pulse Rate [ Right Popliteal ] Respiratory 17 12 16 Rate Blood Pressure 103/67 103/67 103/67 O2 Sat by Pulse 100 100 100 Oximetry 10/24/18 10/24/18 10/24/18 01:40 01:51 02:00 Temperature Pulse Rate 89 87 86 Pulse Rate [ From Monitor] Pulse Rate [ Left Popliteal] Pulse Rate [ Left Radial] Pulse Rate [ Right Popliteal ] Respiratory 16 13 13 Rate Blood Pressure 103/67 94/60 O2 Sat by Pulse 100 100 100 Oximetry 10/24/18 10/24/18 10/24/18 02:11 02:21 02:31 Temperature Pulse Rate 85 84 83 Pulse Rate [ From Monitor] Pulse Rate [ Left Popliteal] Pulse Rate [ Left Radial] Pulse Rate [ Right Popliteal ] Respiratory 13 18 11 L Rate Blood Pressure 94/60 94/60 94/60 O2 Sat by Pulse 100 92 100 Oximetry 10/24/18 10/24/18 10/24/18 02:41 02:51 03:00 Temperature Pulse Rate 81 81 82 Pulse Rate [ From Monitor] Pulse Rate [ Left Popliteal] Pulse Rate [ Left Radial] Pulse Rate [ Right Popliteal ] Respiratory 18 17 15 Rate Blood Pressure 94/60 94/60 99/63 O2 Sat by Pulse 98 37 L 89 Oximetry 10/24/18 10/24/18 10/24/18 03:11 03:21 03:31 Temperature Pulse Rate 86 87 86 Pulse Rate [ From Monitor] Pulse Rate [ Left Popliteal] Pulse Rate [ Left Radial] Pulse Rate [ Right Popliteal ] Respiratory 16 18 12 Rate Blood Pressure 99/63 99/63 99/63 O2 Sat by Pulse 87 72 L 100 Oximetry 10/24/18 10/24/18 10/24/18 03:41 03:51 04:01 Temperature Pulse Rate 89 88 88 Pulse Rate [ From Monitor] Pulse Rate [ Left Popliteal] Pulse Rate [ Left Radial] Pulse Rate [ Right Popliteal ] Respiratory 15 13 12 Rate Blood Pressure 99/63 99/63 100/64 O2 Sat by Pulse 90 28 L 89 Oximetry 10/24/18 10/24/18 10/24/18 04:11 04:21 04:31 Temperature Pulse Rate 88 88 89 Pulse Rate [ From Monitor] Pulse Rate [ Left Popliteal] Pulse Rate [ Left Radial] Pulse Rate [ Right Popliteal ] Respiratory 17 20 12 Rate Blood Pressure 100/64 100/64 100/64 O2 Sat by Pulse 91 99 100 Oximetry 10/24/18 10/24/18 10/24/18 04:41 04:51 05:00 Temperature Pulse Rate 90 88 87 Pulse Rate [ From Monitor] Pulse Rate [ Left Popliteal] Pulse Rate [ Left Radial] Pulse Rate [ Right Popliteal ] Respiratory 13 15 16 Rate Blood Pressure 100/64 100/64 100/65 O2 Sat by Pulse 100 100 99 Oximetry 10/24/18 10/24/18 10/24/18 05:11 05:21 05:31 Temperature Pulse Rate 89 89 87 Pulse Rate [ From Monitor] Pulse Rate [ Left Popliteal] Pulse Rate [ Left Radial] Pulse Rate [ Right Popliteal ] Respiratory 15 13 16 Rate Blood Pressure 100/65 100/65 100/65 O2 Sat by Pulse 100 100 100 Oximetry 10/24/18 10/24/18 10/24/18 05:41 05:51 06:00 Temperature Pulse Rate 90 88 95 H Pulse Rate [ From Monitor] Pulse Rate [ Left Popliteal] Pulse Rate [ Left Radial] Pulse Rate [ Right Popliteal ] Respiratory 14 16 17 Rate Blood Pressure 100/65 100/65 106/70 O2 Sat by Pulse 100 100 100 Oximetry 10/24/18 10/24/18 10/24/18 06:11 06:21 06:31 Temperature Pulse Rate 92 H 91 H 91 H Pulse Rate [ From Monitor] Pulse Rate [ Left Popliteal] Pulse Rate [ Left Radial] Pulse Rate [ Right Popliteal ] Respiratory 16 16 16 Rate Blood Pressure 106/70 106/70 106/70 O2 Sat by Pulse 100 100 100 Oximetry 10/24/18 10/24/18 10/24/18 06:41 06:51 07:00 Temperature Pulse Rate 89 90 91 H Pulse Rate [ From Monitor] Pulse Rate [ Left Popliteal] Pulse Rate [ Left Radial] Pulse Rate [ Right Popliteal ] Respiratory 15 14 15 Rate Blood Pressure 106/70 106/70 96/63 O2 Sat by Pulse 100 100 100 Oximetry 10/24/18 10/24/18 10/24/18 07:11 07:21 07:31 Temperature Pulse Rate 89 90 90 Pulse Rate [ From Monitor] Pulse Rate [ Left Popliteal] Pulse Rate [ Left Radial] Pulse Rate [ Right Popliteal ] Respiratory 13 23 17 Rate Blood Pressure 96/63 96/63 96/63 O2 Sat by Pulse 100 100 100 Oximetry 10/24/18 10/24/18 10/24/18 07:41 07:51 08:00 Temperature 100.8 F H Pulse Rate 89 88 Pulse Rate [ From Monitor] Pulse Rate [ Left Popliteal] Pulse Rate [ Left Radial] Pulse Rate [ Right Popliteal ] Respiratory 15 15 Rate Blood Pressure 96/63 96/63 O2 Sat by Pulse 100 100 Oximetry 10/24/18 10/24/18 10/24/18 08:01 08:11 08:21 Temperature Pulse Rate 88 89 87 Pulse Rate [ From Monitor] Pulse Rate [ Left Popliteal] Pulse Rate [ Left Radial] Pulse Rate [ Right Popliteal ] Respiratory 16 14 14 Rate Blood Pressure 93/64 93/64 93/64 O2 Sat by Pulse 100 100 100 Oximetry 10/24/18 10/24/18 10/24/18 08:31 08:41 08:51 Temperature Pulse Rate 86 87 87 Pulse Rate [ From Monitor] Pulse Rate [ Left Popliteal] Pulse Rate [ Left Radial] Pulse Rate [ Right Popliteal ] Respiratory 14 16 16 Rate Blood Pressure 93/64 93/64 93/64 O2 Sat by Pulse 100 100 100 Oximetry 10/24/18 10/24/18 10/24/18 09:00 09:11 09:21 Temperature Pulse Rate 87 84 86 Pulse Rate [ From Monitor] Pulse Rate [ Left Popliteal] Pulse Rate [ Left Radial] Pulse Rate [ Right Popliteal ] Respiratory 13 13 13 Rate Blood Pressure 108/69 108/69 108/69 O2 Sat by Pulse 100 100 100 Oximetry 10/24/18 10/24/18 09:31 09:41 Temperature Pulse Rate 82 84 Pulse Rate [ From Monitor] Pulse Rate [ Left Popliteal] Pulse Rate [ Left Radial] Pulse Rate [ Right Popliteal ] Respiratory 13 13 Rate Blood Pressure 108/69 108/69 O2 Sat by Pulse 99 100 Oximetry Gastrointestinal: normoactive bowel sounds, soft, non-tender Integumentary: normal CBC and BMP: 10/24/18 04:50 10/25/18 11:31 ABG, PT/INR, D-dimer: ABG POC ABG pH 7.436 (7.35-7.45) 10/23/18 20:51 POC ABG pCO2 34.3 (35-45) L 10/23/18 20:51 POC ABG pO2 95 (80-105) 10/23/18 20:51 POC ABG HCO3 23.1 (22-26 mml/L) 10/23/18 20:51 POC ABG Total CO2 24 (23-27mmol/L) 10/23/18 20:51 POC ABG O2 Sat 98 10/23/18 20:51 PT/INR, D-dimer PT 20.6 Sec. (12.2-14.9) H 10/17/18 10:19 INR 1.81 (0.87-1.13) H 10/17/18 10:19 Abnormal lab findings: Abnormal Labs 10/17/18 10/17/18 10/17/18 10:16 10:19 10:19 RBC Hgb Hct MCV RDW Plt Count Lymph % (Auto) 9.5 L [place] % (Auto) Lymph # 1.0 L [place] # Seg Neutrophils % 84.7 H Seg Neuts % (Manual) Lymphocytes % (Manual) Monocytes % (Manual) Nucleated RBC % Seg Neutrophils # 8.7 H Seg Neutrophils # Man Lymphocytes # (Manual) PT 20.6 H INR 1.81 H POC ABG pH POC ABG pCO2 POC ABG pO2 Sodium Potassium Chloride Carbon Dioxide BUN Creatinine Glucose POC Glucose 277 H Calcium Phosphorus TIBC Ferritin AST ALT Alkaline Phosphatase Lactate Dehydrogenase Total Creatine Kinase Troponin T C-Reactive Protein Total Protein Albumin HDL Cholesterol Vitamin B12 Urine Creatinine Ur Creatinine 24 Hour Urine Total Protein Salicylates Acetaminophen 10/17/18 10/17/18 10/17/18 13:14 13:16 13:34 RBC Hgb Hct MCV RDW Plt Count Lymph % (Auto) [place] % (Auto) Lymph # [place] # Seg Neutrophils % Seg Neuts % (Manual) Lymphocytes % (Manual) Monocytes % (Manual) Nucleated RBC % Seg Neutrophils # Seg Neutrophils # Man Lymphocytes # (Manual) PT INR POC ABG pH POC ABG pCO2 POC ABG pO2 Sodium Potassium Chloride Carbon Dioxide BUN Creatinine Glucose POC Glucose 330 H Calcium Phosphorus TIBC Ferritin AST ALT Alkaline Phosphatase Lactate Dehydrogenase Total Creatine Kinase Troponin T C-Reactive Protein Total Protein Albumin HDL Cholesterol Vitamin B12 Urine Creatinine 276.0 H 271.1 H Ur Creatinine 24 Hour Urine Total Protein 191 H Salicylates Acetaminophen 10/17/18 10/17/18 10/17/18 15:15 21:03 Unknown RBC Hgb Hct MCV RDW Plt Count Lymph % (Auto) [place] % (Auto) Lymph # [place] # Seg Neutrophils % Seg Neuts % (Manual) Lymphocytes % (Manual) Monocytes % (Manual) Nucleated RBC % Seg Neutrophils # Seg Neutrophils # Man Lymphocytes # (Manual) PT INR POC ABG pH POC ABG pCO2 POC ABG pO2 Sodium Potassium 6.6 H* Chloride Carbon Dioxide 10 L BUN 111 H Creatinine 6.5 H Glucose 351 H POC Glucose 143 H Calcium Phosphorus TIBC Ferritin AST ALT Alkaline Phosphatase Lactate Dehydrogenase Total Creatine Kinase 3216 H Troponin T 4.720 H* C-Reactive Protein Total Protein Albumin HDL Cholesterol 88 H Vitamin B12 Urine Creatinine Ur Creatinine 24 Hour Urine Total Protein Salicylates Acetaminophen 10/17/18 10/17/18 10/18/18 Unknown Unknown 07:29 RBC Hgb Hct MCV RDW Plt Count Lymph % (Auto) [place] % (Auto) Lymph # [place] # Seg Neutrophils % Seg Neuts % (Manual) Lymphocytes % (Manual) Monocytes % (Manual) Nucleated RBC % Seg Neutrophils # Seg Neutrophils # Man Lymphocytes # (Manual) PT INR POC ABG pH POC ABG pCO2 POC ABG pO2 Sodium Potassium Chloride Carbon Dioxide BUN Creatinine Glucose POC Glucose 120 H Calcium Phosphorus TIBC Ferritin AST ALT Alkaline Phosphatase Lactate Dehydrogenase Total Creatine Kinase Troponin T C-Reactive Protein Total Protein Albumin HDL Cholesterol Vitamin B12 Urine Creatinine Ur Creatinine 24 Hour Urine Total Protein Salicylates < 0.3 L Acetaminophen < 5.0 L 10/18/18 10/18/18 10/18/18 09:09 09:09 12:21 RBC 3.28 L Hgb Hct MCV RDW Plt Count 125 L Lymph % (Auto) 13.2 L [place] % (Auto) Lymph # 1.1 L [place] # Seg Neutrophils % 80.7 H Seg Neuts % (Manual) Lymphocytes % (Manual) Monocytes % (Manual) Nucleated RBC % Seg Neutrophils # Seg Neutrophils # Man Lymphocytes # (Manual) PT INR POC ABG pH POC ABG pCO2 POC ABG pO2 Sodium Potassium Chloride 97.9 L Carbon Dioxide 20 L D BUN 38 H Creatinine 3.2 H D Glucose 207 H POC Glucose 180 H Calcium Phosphorus TIBC Ferritin AST ALT Alkaline Phosphatase Lactate Dehydrogenase Total Creatine Kinase Troponin T C-Reactive Protein Total Protein Albumin HDL Cholesterol Vitamin B12 Urine Creatinine Ur Creatinine 24 Hour Urine Total Protein Salicylates Acetaminophen 10/18/18 10/18/18 10/19/18 17:14 20:50 05:20 RBC 3.46 L Hgb Hct MCV 98 H RDW 16.4 H Plt Count 55 L Lymph % (Auto) [place] % (Auto) Lymph # [place] # Seg Neutrophils % Seg Neuts % (Manual) Lymphocytes % (Manual) Monocytes % (Manual) 9.0 H Nucleated RBC % 4.0 H Seg Neutrophils # Seg Neutrophils # Man Lymphocytes # (Manual) PT INR POC ABG pH POC ABG pCO2 POC ABG pO2 Sodium Potassium Chloride Carbon Dioxide BUN Creatinine Glucose POC Glucose 256 H 335 H Calcium Phosphorus TIBC Ferritin AST ALT Alkaline Phosphatase Lactate Dehydrogenase Total Creatine Kinase Troponin T C-Reactive Protein Total Protein Albumin HDL Cholesterol Vitamin B12 Urine Creatinine Ur Creatinine 24 Hour Urine Total Protein Salicylates Acetaminophen 10/19/18 10/19/18 10/19/18 05:20 08:34 08:34 RBC Hgb Hct MCV RDW Plt Count Lymph % (Auto) [place] % (Auto) Lymph # [place] # Seg Neutrophils % Seg Neuts % (Manual) Lymphocytes % (Manual) Monocytes % (Manual) Nucleated RBC % Seg Neutrophils # Seg Neutrophils # Man Lymphocytes # (Manual) PT INR POC ABG pH POC ABG pCO2 POC ABG pO2 Sodium Potassium Chloride Carbon Dioxide 21 L BUN 52 H Creatinine 4.2 H Glucose 106 H POC Glucose Calcium Phosphorus TIBC 193 L Ferritin 2450.0 H AST ALT Alkaline Phosphatase Lactate Dehydrogenase 892 H Total Creatine Kinase Troponin T C-Reactive Protein Total Protein Albumin HDL Cholesterol Vitamin B12 Urine Creatinine Ur Creatinine 24 Hour Urine Total Protein Salicylates Acetaminophen 10/19/18 10/19/18 10/19/18 08:34 09:06 13:41 RBC Hgb Hct MCV RDW Plt Count Lymph % (Auto) [place] % (Auto) Lymph # [place] # Seg Neutrophils % Seg Neuts % (Manual) Lymphocytes % (Manual) Monocytes % (Manual) Nucleated RBC % Seg Neutrophils # Seg Neutrophils # Man Lymphocytes # (Manual) PT INR POC ABG pH POC ABG pCO2 POC ABG pO2 Sodium Potassium Chloride Carbon Dioxide BUN Creatinine Glucose POC Glucose 141 H 156 H Calcium Phosphorus TIBC Ferritin AST ALT Alkaline Phosphatase Lactate Dehydrogenase Total Creatine Kinase Troponin T C-Reactive Protein Total Protein Albumin HDL Cholesterol Vitamin B12 1296 H Urine Creatinine Ur Creatinine 24 Hour Urine Total Protein Salicylates Acetaminophen 10/19/18 10/19/18 10/20/18 15:53 22:51 05:07 RBC 3.23 L Hgb 10.0 L Hct MCV RDW 15.7 H Plt Count 111 L D Lymph % (Auto) [place] % (Auto) 8.0 H Lymph # [place] # Seg Neutrophils % Seg Neuts % (Manual) Lymphocytes % (Manual) Monocytes % (Manual) Nucleated RBC % Seg Neutrophils # Seg Neutrophils # Man Lymphocytes # (Manual) PT INR POC ABG pH POC ABG pCO2 POC ABG pO2 Sodium Potassium Chloride Carbon Dioxide BUN Creatinine Glucose POC Glucose 193 H 228 H Calcium Phosphorus TIBC Ferritin AST ALT Alkaline Phosphatase Lactate Dehydrogenase Total Creatine Kinase Troponin T C-Reactive Protein Total Protein Albumin HDL Cholesterol Vitamin B12 Urine Creatinine Ur Creatinine 24 Hour Urine Total Protein Salicylates Acetaminophen 10/20/18 10/20/18 10/20/18 05:07 10:44 13:45 RBC Hgb Hct MCV RDW Plt Count Lymph % (Auto) [place] % (Auto) Lymph # [place] # Seg Neutrophils % Seg Neuts % (Manual) Lymphocytes % (Manual) Monocytes % (Manual) Nucleated RBC % Seg Neutrophils # Seg Neutrophils # Man Lymphocytes # (Manual) PT INR POC ABG pH POC ABG pCO2 POC ABG pO2 Sodium Potassium Chloride Carbon Dioxide BUN 32 H Creatinine 3.2 H Glucose 177 H POC Glucose 160 H Calcium 8.0 L Phosphorus TIBC Ferritin AST 305 H ALT 728 H Alkaline Phosphatase 402 H Lactate Dehydrogenase Total Creatine Kinase Troponin T C-Reactive Protein Total Protein 6.0 L Albumin 2.9 L HDL Cholesterol Vitamin B12 Urine Creatinine 157.6 H Ur Creatinine 24 Hour Urine Total Protein Salicylates Acetaminophen 10/20/18 10/20/18 10/21/18 17:19 20:44 05:57 RBC 3.16 L Hgb 10.0 L Hct 29.9 L MCV RDW 15.4 H Plt Count 125 L Lymph % (Auto) [place] % (Auto) 9.6 H Lymph # [place] # Seg Neutrophils % 71.3 H Seg Neuts % (Manual) Lymphocytes % (Manual) Monocytes % (Manual) Nucleated RBC % Seg Neutrophils # Seg Neutrophils # Man Lymphocytes # (Manual) PT INR POC ABG pH POC ABG pCO2 POC ABG pO2 Sodium Potassium Chloride Carbon Dioxide BUN Creatinine Glucose POC Glucose 143 H 234 H Calcium Phosphorus TIBC Ferritin AST ALT Alkaline Phosphatase Lactate Dehydrogenase Total Creatine Kinase Troponin T C-Reactive Protein Total Protein Albumin HDL Cholesterol Vitamin B12 Urine Creatinine Ur Creatinine 24 Hour Urine Total Protein Salicylates Acetaminophen 10/21/18 10/21/18 10/21/18 05:57 07:55 12:05 RBC Hgb Hct MCV RDW Plt Count Lymph % (Auto) [place] % (Auto) Lymph # [place] # Seg Neutrophils % Seg Neuts % (Manual) Lymphocytes % (Manual) Monocytes % (Manual) Nucleated RBC % Seg Neutrophils # Seg Neutrophils # Man Lymphocytes # (Manual) PT INR POC ABG pH POC ABG pCO2 POC ABG pO2 Sodium Potassium Chloride Carbon Dioxide BUN 47 H Creatinine 4.9 H D Glucose 229 H POC Glucose 239 H 446 H Calcium 8.0 L Phosphorus TIBC Ferritin AST ALT Alkaline Phosphatase Lactate Dehydrogenase Total Creatine Kinase Troponin T C-Reactive Protein Total Protein Albumin HDL Cholesterol Vitamin B12 Urine Creatinine Ur Creatinine 24 Hour Urine Total Protein Salicylates Acetaminophen 10/21/18 10/21/18 10/22/18 15:40 18:19 00:45 RBC Hgb Hct MCV RDW Plt Count Lymph % (Auto) [place] % (Auto) Lymph # [place] # Seg Neutrophils % Seg Neuts % (Manual) Lymphocytes % (Manual) Monocytes % (Manual) Nucleated RBC % Seg Neutrophils # Seg Neutrophils # Man Lymphocytes # (Manual) PT INR POC ABG pH POC ABG pCO2 POC ABG pO2 Sodium Potassium Chloride Carbon Dioxide BUN Creatinine Glucose POC Glucose 263 H 179 H Calcium Phosphorus TIBC Ferritin AST ALT Alkaline Phosphatase Lactate Dehydrogenase Total Creatine Kinase Troponin T C-Reactive Protein Total Protein Albumin HDL Cholesterol Vitamin B12 Urine Creatinine 196.7 H Ur Creatinine 24 Hour 0.1 L Urine Total Protein Salicylates Acetaminophen 10/22/18 10/22/18 10/22/18 06:24 06:24 12:47 RBC 3.17 L Hgb 9.9 L Hct MCV RDW 15.7 H Plt Count 134 L Lymph % (Auto) [place] % (Auto) Lymph # [place] # Seg Neutrophils % Seg Neuts % (Manual) 78.0 H Lymphocytes % (Manual) Monocytes % (Manual) Nucleated RBC % Seg Neutrophils # Seg Neutrophils # Man 8.3 H Lymphocytes # (Manual) PT INR POC ABG pH POC ABG pCO2 POC ABG pO2 Sodium Potassium Chloride Carbon Dioxide BUN 33 H Creatinine 3.9 H Glucose 171 H POC Glucose 210 H Calcium Phosphorus TIBC Ferritin AST ALT Alkaline Phosphatase Lactate Dehydrogenase Total Creatine Kinase Troponin T C-Reactive Protein Total Protein Albumin HDL Cholesterol Vitamin B12 Urine Creatinine Ur Creatinine 24 Hour Urine Total Protein Salicylates Acetaminophen 10/22/18 10/22/18 10/23/18 18:33 21:58 05:24 RBC 3.49 L Hgb Hct MCV RDW 16.7 H Plt Count Lymph % (Auto) [place] % (Auto) Lymph # [place] # Seg Neutrophils % Seg Neuts % (Manual) 88.0 H Lymphocytes % (Manual) 6.0 L Monocytes % (Manual) Nucleated RBC % Seg Neutrophils # Seg Neutrophils # Man 9.3 H Lymphocytes # (Manual) 0.6 L PT INR POC ABG pH POC ABG pCO2 POC ABG pO2 Sodium Potassium Chloride Carbon Dioxide BUN Creatinine Glucose POC Glucose 176 H 230 H Calcium Phosphorus TIBC Ferritin AST ALT Alkaline Phosphatase Lactate Dehydrogenase Total Creatine Kinase Troponin T C-Reactive Protein Total Protein Albumin HDL Cholesterol Vitamin B12 Urine Creatinine Ur Creatinine 24 Hour Urine Total Protein Salicylates Acetaminophen 10/23/18 10/23/18 10/23/18 05:24 07:31 11:51 RBC Hgb Hct MCV RDW Plt Count Lymph % (Auto) [place] % (Auto) Lymph # [place] # Seg Neutrophils % Seg Neuts % (Manual) Lymphocytes % (Manual) Monocytes % (Manual) Nucleated RBC % Seg Neutrophils # Seg Neutrophils # Man Lymphocytes # (Manual) PT INR POC ABG pH 7.346 L POC ABG pCO2 POC ABG pO2 116 H Sodium Potassium Chloride Carbon Dioxide BUN 49 H Creatinine 5.0 H Glucose 211 H POC Glucose 137 H Calcium Phosphorus 5.30 H D TIBC Ferritin AST ALT Alkaline Phosphatase Lactate Dehydrogenase Total Creatine Kinase Troponin T C-Reactive Protein Total Protein Albumin HDL Cholesterol Vitamin B12 Urine Creatinine Ur Creatinine 24 Hour Urine Total Protein Salicylates Acetaminophen 10/23/18 10/23/18 10/23/18 14:59 18:29 20:51 RBC Hgb Hct MCV RDW Plt Count Lymph % (Auto) [place] % (Auto) Lymph # [place] # Seg Neutrophils % Seg Neuts % (Manual) Lymphocytes % (Manual) Monocytes % (Manual) Nucleated RBC % Seg Neutrophils # Seg Neutrophils # Man Lymphocytes # (Manual) PT INR POC ABG pH POC ABG pCO2 34.3 L POC ABG pO2 Sodium Potassium Chloride Carbon Dioxide BUN Creatinine Glucose POC Glucose 182 H Calcium Phosphorus TIBC Ferritin AST ALT Alkaline Phosphatase Lactate Dehydrogenase Total Creatine Kinase Troponin T C-Reactive Protein 24.10 H Total Protein Albumin HDL Cholesterol Vitamin B12 Urine Creatinine Ur Creatinine 24 Hour Urine Total Protein Salicylates Acetaminophen 10/23/18 10/24/18 10/24/18 23:37 04:50 04:50 RBC 3.13 L Hgb 9.7 L Hct MCV RDW 16.8 H Plt Count 132 L Lymph % (Auto) 8.0 L [place] % (Auto) 10.9 H Lymph # 0.9 L [place] # 1.2 H Seg Neutrophils % 80.6 H Seg Neuts % (Manual) Lymphocytes % (Manual) Monocytes % (Manual) Nucleated RBC % Seg Neutrophils # 8.8 H Seg Neutrophils # Man Lymphocytes # (Manual) PT INR POC ABG pH POC ABG pCO2 POC ABG pO2 Sodium 136 L Potassium Chloride 94.6 L Carbon Dioxide BUN 25 H Creatinine 3.3 H Glucose 214 H POC Glucose 232 H Calcium Phosphorus TIBC Ferritin AST ALT Alkaline Phosphatase Lactate Dehydrogenase Total Creatine Kinase Troponin T C-Reactive Protein Total Protein Albumin HDL Cholesterol Vitamin B12 Urine Creatinine Ur Creatinine 24 Hour Urine Total Protein Salicylates Acetaminophen 10/24/18 07:44 RBC Hgb Hct MCV RDW Plt Count Lymph % (Auto) [place] % (Auto) Lymph # [place] # Seg Neutrophils % Seg Neuts % (Manual) Lymphocytes % (Manual) Monocytes % (Manual) Nucleated RBC % Seg Neutrophils # Seg Neutrophils # Man Lymphocytes # (Manual) PT INR POC ABG pH POC ABG pCO2 POC ABG pO2 Sodium Potassium Chloride Carbon Dioxide BUN Creatinine Glucose POC Glucose 219 H Calcium Phosphorus TIBC Ferritin AST ALT Alkaline Phosphatase Lactate Dehydrogenase Total Creatine Kinase Troponin T C-Reactive Protein Total Protein Albumin HDL Cholesterol Vitamin B12 Urine Creatinine Ur Creatinine 24 Hour Urine Total Protein Salicylates Acetaminophen Chest x-ray: image reviewed (Cardiomegaly obscuring the left cardiac border, Right permacath, Feeding tube in stomach) Allied health notes reviewed: nursing
[2018-10-24] MEDS: COLACE PO SCH (10:33)
[2018-10-24] MEDS: PEPCID PO SCH (10:33)
[2018-10-24] MEDS: KEPPRA PO SCH ×2 (10:33→23:21)
[2018-10-24] MEDS: SODIUM BICARBONATE PO SCH (10:33)
[2018-10-24] MEDS: PLAVIX PO SCH (10:33)
[2018-10-24] MEDS: VITAMIN D2 PO SCH (10:42)
--- NOTE | 2018-10-24 12:02 | Hem/Onc Progress Note ---
Assessment and Plan 1. Elevated LDH. Smear has been evaluated. Heparin-induced thrombocytopenia has been ordered. HIT NEGATIVE 2. Renal impairment. Nephrology team following the patient. SPEP normal 3. deficiency investigation. The smear evaluation is being done. The platelet counts at admission were normal and then have gone down. The cause of thrombocytopenia at this time is not clear. Her mentation is also not perfect. I will follow the trend of the counts. b12 - folate - iron ferritin normal 4. Cerebrovascular accident?. neurology following. 5. Electrolyte imbalance. 6. Vitamin D deficiency. 8. History of diabetes. 9. History of hypertension. 10. History of seizure. 11. Hyperlipidemia. pt plt have improved - smear - rare schistocytes neurology following - cva low EF anti plt plan for statring later EDINSON was suggested SPEP - no Monoclonal band ADAMTS 13 - normal level Stroke: - Likely cardio-embolic, as b/l infarcts seen on MRI. - MRA head/neck did not reveal any significant stenosis - Echo: EF 10-15%, bubble study negative, LA moderately dilated - EDINSON did not reveal any evidence of intracardiac thrombi. 10/24 - plt 132 hb 9.7 - Patient Problems (1) Thrombocytopenia Current Visit: Yes Status: Acute Subjective Date of service: 10/24/18 Principal diagnosis: low plt - unresponsive Interval history: in ICU Objective - Exam Narrative Exam: Pain Not evaluable General appearance no acute distress Performance status -completely disabled Eyes EOM not able to evaluate ENT no nose/ear bleed LNs cervical not palpable Neck Not evaluable Respiratory Normal Breath sounds - CTA anteriorly CVS S1 S2 + Extremities normal temperature/ no edema General GI Soft non tender Rectal deferred Female - deferred Skin warm Musculoskeletal generalized weakness Neurologically not responsive - Constitutional Vitals: Last Vital Signs Temp 100.8 F H 10/24/18 08:00 Pulse 84 10/24/18 09:41 Resp 13 10/24/18 09:41 BP 108/69 10/24/18 09:41 Pulse Ox 100 10/24/18 09:41 - Labs Lab Results: Laboratory Results - last 24 hr 10/23/18 10/23/18 10/23/18 14:59 14:59 18:29 WBC RBC Hgb Hct MCV MCH MCHC RDW Plt Count Lymph % (Auto) Sampson % (Auto) Eos % (Auto) Baso % (Auto) Lymph # Sampson # Eos # Baso # Seg Neutrophils % Seg Neutrophils # POC ABG pH POC ABG pCO2 POC ABG pO2 POC ABG HCO3 POC ABG Total CO2 POC ABG O2 Sat POC ABG Base Excess FiO2 Sodium Potassium Chloride Carbon Dioxide Anion Gap BUN Creatinine Estimated GFR BUN/Creatinine Ratio Glucose POC Glucose 182 H Lactic Acid 1.30 Calcium C-Reactive Protein 24.10 H 10/23/18 10/23/18 10/24/18 20:51 23:37 04:50 WBC 11.0 RBC 3.13 L Hgb 9.7 L Hct 30.4 MCV 97 MCH 31 MCHC 32 RDW 16.8 H Plt Count 132 L Lymph % (Auto) 8.0 L Sampson % (Auto) 10.9 H Eos % (Auto) 0.2 Baso % (Auto) 0.3 Lymph # 0.9 L Sampson # 1.2 H Eos # 0.0 Baso # 0.0 Seg Neutrophils % 80.6 H Seg Neutrophils # 8.8 H POC ABG pH 7.436 POC ABG pCO2 34.3 L POC ABG pO2 95 POC ABG HCO3 23.1 POC ABG Total CO2 24 POC ABG O2 Sat 98 POC ABG Base Excess -1 FiO2 24 Sodium Potassium Chloride Carbon Dioxide Anion Gap BUN Creatinine Estimated GFR BUN/Creatinine Ratio Glucose POC Glucose 232 H Lactic Acid Calcium C-Reactive Protein 10/24/18 10/24/18 04:50 07:44 WBC RBC Hgb Hct MCV MCH MCHC RDW Plt Count Lymph % (Auto) Sampson % (Auto) Eos % (Auto) Baso % (Auto) Lymph # Sampson # Eos # Baso # Seg Neutrophils % Seg Neutrophils # POC ABG pH POC ABG pCO2 POC ABG pO2 POC ABG HCO3 POC ABG Total CO2 POC ABG O2 Sat POC ABG Base Excess FiO2 Sodium 136 L Potassium 4.1 Chloride 94.6 L Carbon Dioxide 22 Anion Gap 24 BUN 25 H Creatinine 3.3 H Estimated GFR 17 BUN/Creatinine Ratio 8 Glucose 214 H POC Glucose 219 H Lactic Acid Calcium 8.5 C-Reactive Protein Medications & Allergies - Medications Allergies/Adverse Reactions: Allergies NSAIDS (Non-Steroidal Anti-Inflamma Adverse Reaction (Verified 01/02/17 05:56) Unknown Tetracyclines Adverse Reaction (Verified 09/26/14 12:09) Unknown Home Medications: Home Medications Medication Instructions Recorded Confirmed Last Taken Type Ergocalciferol [Vitamin D2] 50,000 unit PO QWEEK capsule 09/25/16 10/17/18 Unknown Rx Latanoprost 0.005% 1 drop OP QPM 01/02/17 10/17/18 Unknown History Sodium Bicarbonate 325 mg PO DAILY 01/02/17 10/17/18 Unknown History Clopidogrel [Plavix] 75 mg PO DAILY #30 tablet 01/08/17 10/17/18 Unknown Rx Docusate Sodium [Colace CAP] 100 mg PO BID #60 capsule 01/08/17 10/17/18 Unknown Rx Famotidine [Pepcid] 10 mg PO BID #60 tablet 01/08/17 10/17/18 Unknown Rx Gabapentin [Neurontin] 300 mg PO QHS #30 capsule 01/08/17 10/17/18 Unknown Rx Simvastatin [Zocor TAB] 20 mg PO QHS #60 tablet 01/08/17 10/17/18 Unknown Rx glipiZIDE [Glucotrol] 5 mg PO QDDIAB #60 tablet 01/08/17 10/17/18 Unknown Rx hydrALAZINE [Apresoline TAB] 10 mg PO Q8HR #90 tablet 01/08/17 10/17/18 Unknown Rx levETIRAcetam [Keppra TAB] 500 mg PO BID #60 tablet 01/08/17 10/17/18 Unknown Rx Active Medications: Generic Name Dose Route Start Last Admin Trade Name Freq PRN Reason Stop Dose Admin Clopidogrel Bisulfate 75 mg 10/21/18 11:00 10/24/18 10:33 Plavix PO 75 mg QDAY ALLEY Administration Docusate Sodium 100 mg 10/17/18 22:00 10/24/18 10:33 Colace PO 100 mg BID ALLEY Administration Ergocalciferol 50,000 unit 10/24/18 10:00 10/24/18 10:42 Vitamin D2 PO 50,000 unit Sa ALLEY Administration Famotidine 20 mg 10/21/18 10:00 10/24/18 10:33 Pepcid PO 20 mg DAILY ALLEY Administration Gabapentin 300 mg 10/17/18 22:00 10/23/18 22:00 Neurontin PO 300 mg QHS ALLEY Administration Phenylephrine HCl 100 mg/ 100 mls @ 3 mls/hr 10/23/18 11:30 Sodium Chloride IV TITR ALLEY Protocol 50 MCG/MIN Insulin Human Lispro 0 unit 10/24/18 12:00 10/24/18 11:59 Humalog SUB-Q 4 unit Q6HR ALLEY Administration Protocol Latanoprost 1 drops 10/17/18 18:00 10/23/18 18:00 Latanoprost 0.005% OU Not Given QPM ALLEY Levetiracetam 500 mg 10/21/18 10:00 10/24/18 10:33 Keppra PO 500 mg BID ALLEY Administration Sodium Bicarbonate 325 mg 10/17/18 17:00 10/24/18 10:33 Sodium Bicarbonate PO 325 mg DAILY ALLEY Administration
--- NOTE | 2018-10-24 12:05 | Progress Note ---
Assessment and Plan 1. Acute CVA 2. End-stage renal disease on hemodialysis 3. Coronary artery disease status post H. 4. Essential hypertension 5. Type 2 diabetes mellitus 6. Paroxysmal nonsustained VT Echocardiogram shows dilated left ventricle with severe global hypokinesis LV ejection fraction 10-15%. Significant decrease in LV ejection fraction noted. Rule out progression of ischemic coronary artery disease. Plan. Scheduled for [facility] patient to have a left heart cath with grafts to assess extent of ischemic coronary artery disease Subjective Date of service: 10/24/18 Interval history: No cardiac symptoms. Objective Vital Signs Temp Pulse Pulse Pulse Pulse Pulse Resp 10/24/18 09:41 84 13 10/24/18 09:31 82 13 10/24/18 09:21 86 13 10/24/18 09:11 84 13 10/24/18 09:00 87 13 10/24/18 08:51 87 16 10/24/18 08:41 87 16 10/24/18 08:31 86 14 10/24/18 08:21 87 14 10/24/18 08:11 89 14 10/24/18 08:01 88 16 10/24/18 08:00 100.8 F H 10/24/18 07:51 88 15 10/24/18 07:41 89 15 10/24/18 07:31 90 17 10/24/18 07:21 90 23 10/24/18 07:11 89 13 10/24/18 07:00 91 H 15 10/24/18 06:51 90 14 10/24/18 06:41 89 15 10/24/18 06:31 91 H 16 10/24/18 06:21 91 H 16 10/24/18 06:11 92 H 16 10/24/18 06:00 95 H 17 10/24/18 05:51 88 16 10/24/18 05:41 90 14 10/24/18 05:31 87 16 10/24/18 05:21 89 13 10/24/18 05:11 89 15 10/24/18 05:00 87 16 10/24/18 04:51 88 15 10/24/18 04:41 90 13 10/24/18 04:31 89 12 10/24/18 04:21 88 20 10/24/18 04:11 88 17 10/24/18 04:01 88 12 10/24/18 03:51 88 13 10/24/18 03:41 89 15 10/24/18 03:31 86 12 10/24/18 03:21 87 18 10/24/18 03:11 86 16 10/24/18 03:00 82 15 10/24/18 02:51 81 17 10/24/18 02:41 81 18 10/24/18 02:31 83 11 L 10/24/18 02:21 84 18 10/24/18 02:11 85 13 10/24/18 02:00 86 13 10/24/18 01:51 87 13 10/24/18 01:40 89 16 10/24/18 01:30 88 16 10/24/18 01:21 90 12 10/24/18 01:11 90 17 10/24/18 01:00 91 H 15 10/24/18 00:51 90 12 10/24/18 00:41 90 17 10/24/18 00:31 90 19 10/24/18 00:21 89 10 L 10/24/18 00:11 88 20 10/24/18 00:00 98.6 F 82 89 89 89 89 12 10/23/18 23:59 84 16 10/23/18 23:51 86 14 10/23/18 23:41 87 18 10/23/18 23:30 85 13 10/23/18 23:21 83 14 10/23/18 23:11 85 12 10/23/18 23:00 84 13 10/23/18 22:51 81 11 L 10/23/18 22:41 81 12 10/23/18 22:30 79 13 10/23/18 22:21 84 12 10/23/18 22:11 84 11 L 10/23/18 22:01 83 12 10/23/18 22:00 97.5 F L 10/23/18 21:51 85 10 L 10/23/18 21:41 86 12 10/23/18 21:30 89 14 10/23/18 21:21 87 10 L 10/23/18 21:11 86 11 L 10/23/18 21:01 87 12 10/23/18 20:51 86 11 L 10/23/18 20:48 10/23/18 20:41 84 12 10/23/18 20:30 86 11 L 08/09/19 20:21 85 12 10/23/18 20:11 81 13 10/23/18 20:01 81 10 L 10/23/18 20:00 98 H 83 83 14 10/23/18 19:51 84 14 10/23/18 19:41 79 11 L 10/23/18 19:31 83 16 10/23/18 19:21 84 19 10/23/18 19:11 82 15 10/23/18 19:00 83 14 10/23/18 18:51 81 14 10/23/18 18:41 84 16 10/23/18 18:30 82 16 10/23/18 18:21 82 18 10/23/18 18:11 83 11 L 10/23/18 18:08 97.8 F 83 12 10/23/18 18:00 83 98 H 14 10/23/18 17:51 82 12 10/23/18 17:41 78 14 10/23/18 17:40 83 10/23/18 17:32 78 10/23/18 17:30 78 11 L 10/23/18 17:21 78 11 L 10/23/18 17:15 78 10/23/18 17:11 80 13 10/23/18 17:00 82 15 10/23/18 16:51 82 13 10/23/18 16:45 81 10/23/18 16:41 82 14 10/23/18 16:30 82 14 10/23/18 16:21 82 14 10/23/18 16:15 82 10/23/18 16:11 83 19 10/23/18 16:01 84 10/23/18 16:00 84 14 10/23/18 15:51 79 11 L 10/23/18 15:45 84 10/23/18 15:41 83 15 10/23/18 15:30 85 18 10/23/18 15:21 85 21 10/23/18 15:15 80 10/23/18 15:11 82 15 10/23/18 15:00 81 11 L 10/23/18 14:51 81 11 L 10/23/18 14:45 81 10/23/18 14:41 83 12 10/23/18 14:40 82 10/23/18 14:30 86 17 10/23/18 14:21 89 18 10/23/18 14:15 98.3 F 82 13 10/23/18 14:11 85 11 L 10/23/18 14:00 85 13 10/23/18 13:51 92 H 17 10/23/18 13:41 89 13 10/23/18 13:30 90 14 10/23/18 13:21 91 H 16 10/23/18 13:11 90 16 10/23/18 13:00 87 13 10/23/18 12:50 87 12 10/23/18 12:40 89 13 10/23/18 12:30 89 14 10/23/18 12:22 92 H 12 BP Pulse Ox Pulse Ox 10/24/18 09:41 108/69 100 10/24/18 09:31 108/69 99 10/24/18 09:21 108/69 100 10/24/18 09:11 108/69 100 10/24/18 09:00 108/69 100 10/24/18 08:51 93/64 100 10/24/18 08:41 93/64 100 10/24/18 08:31 93/64 100 10/24/18 08:21 93/64 100 10/24/18 08:11 93/64 100 10/24/18 08:01 93/64 100 10/24/18 08:00 10/24/18 07:51 96/63 100 10/24/18 07:41 96/63 100 10/24/18 07:31 96/63 100 10/24/18 07:21 96/63 100 10/24/18 07:11 96/63 100 10/24/18 07:00 96/63 100 10/24/18 06:51 106/70 100 10/24/18 06:41 106/70 100 10/24/18 06:31 106/70 100 10/24/18 06:21 106/70 100 10/24/18 06:11 106/70 100 10/24/18 06:00 106/70 100 10/24/18 05:51 100/65 100 10/24/18 05:41 100/65 100 10/24/18 05:31 100/65 100 10/24/18 05:21 100/65 100 10/24/18 05:11 100/65 100 10/24/18 05:00 100/65 99 10/24/18 04:51 100/64 100 10/24/18 04:41 100/64 100 10/24/18 04:31 100/64 100 10/24/18 04:21 100/64 99 10/24/18 04:11 100/64 91 10/24/18 04:01 100/64 89 10/24/18 03:51 99/63 28 L 10/24/18 03:41 99/63 90 10/24/18 03:31 99/63 100 10/24/18 03:21 99/63 72 L 10/24/18 03:11 99/63 87 10/24/18 03:00 99/63 89 10/24/18 02:51 94/60 37 L 10/24/18 02:41 94/60 98 10/24/18 02:31 94/60 100 10/24/18 02:21 94/60 92 10/24/18 02:11 94/60 100 10/24/18 02:00 94/60 100 10/24/18 01:51 100 10/24/18 01:40 103/67 100 10/24/18 01:30 103/67 100 10/24/18 01:21 103/67 100 10/24/18 01:11 103/67 100 10/24/18 01:00 103/67 100 10/24/18 00:51 108/73 100 10/24/18 00:41 108/73 100 10/24/18 00:31 108/73 100 10/24/18 00:21 108/73 96 10/24/18 00:11 108/73 100 10/24/18 00:00 113/76 100 10/23/18 23:59 107/70 100 10/23/18 23:51 107/70 100 10/23/18 23:41 95/60 87 10/23/18 23:30 92/60 82 L 10/23/18 23:21 95/60 94 10/23/18 23:11 93/69 89 10/23/18 23:00 93/69 90 10/23/18 22:51 96/59 91 10/23/18 22:41 93/55 93 10/23/18 22:30 93/55 93 10/23/18 22:21 90/47 100 10/23/18 22:11 87/50 95 10/23/18 22:01 87/50 100 10/23/18 22:00 10/23/18 21:51 96/57 99 10/23/18 21:41 99/53 99 10/23/18 21:30 99/60 100 10/23/18 21:21 99/53 92 10/23/18 21:11 107/71 99 10/23/18 21:01 111/70 98 10/23/18 20:51 107/71 98 10/23/18 20:48 98 10/23/18 20:41 103/58 89 10/23/18 20:30 103/58 100 10/23/18 20:21 98/58 100 10/23/18 20:11 118/78 100 10/23/18 20:01 98/62 94 10/23/18 20:00 100 10/23/18 19:51 116/82 99 10/23/18 19:41 118/76 10/23/18 19:31 118/76 100 10/23/18 19:21 118/78 95 10/23/18 19:11 118/78 70 L 10/23/18 19:00 115/77 98 10/23/18 18:51 111/73 35 L 10/23/18 18:41 112/77 98 10/23/18 18:30 112/77 10/23/18 18:21 118/78 100 10/23/18 18:11 118/79 10/23/18 18:08 118/79 99 10/23/18 18:00 118/79 100 10/23/18 17:51 117/74 99 10/23/18 17:41 121/73 100 10/23/18 17:40 118/79 10/23/18 17:32 121/73 10/23/18 17:30 121/73 87 10/23/18 17:21 119/77 10/23/18 17:15 119/77 10/23/18 17:11 106/76 71 L 10/23/18 17:00 106/76 99 10/23/18 16:51 101/77 100 10/23/18 16:45 101/77 10/23/18 16:41 98/77 100 10/23/18 16:30 98/77 99 10/23/18 16:21 114/73 100 10/23/18 16:15 114/73 08/09/19 16:11 121/82 100 10/23/18 16:01 121/82 10/23/18 16:00 121/82 99 10/23/18 15:51 115/78 99 10/23/18 15:45 115/78 10/23/18 15:41 116/75 100 10/23/18 15:30 116/75 100 10/23/18 15:21 115/79 100 10/23/18 15:15 118/70 10/23/18 15:11 115/79 100 10/23/18 15:00 115/79 100 10/23/18 14:51 114/80 97 10/23/18 14:45 114/80 10/23/18 14:41 114/78 100 10/23/18 14:40 114/80 10/23/18 14:30 114/78 100 10/23/18 14:21 117/83 99 10/23/18 14:15 114/80 100 10/23/18 14:11 118/82 10/23/18 14:00 118/82 10/23/18 13:51 109/77 98 10/23/18 13:41 111/82 100 10/23/18 13:30 111/82 94 10/23/18 13:21 110/76 100 10/23/18 13:11 100/65 100 10/23/18 13:00 101/67 100 10/23/18 12:50 100/65 96 10/23/18 12:40 112/79 10/23/18 12:30 108/71 94 10/23/18 12:22 106/68 - Physical Examination General: Appears Well, No Apparent Distress HEENT: Positive: PERRL Neck: Positive: trachea midline. Negative: JVD/HJR Cardiac: Positive: Regular Rate, S1/S2, S3, S4, PMI, Laterally Displaced Lungs: Positive: clear to auscultation, No Wheeze, Rales, Rhonchi Neuro: Positive: Grossly Intact Extremities: Absent: edema - Labs and Meds CBC 10/24/18 Range/Units 04:50 WBC 11.0 (4.5-11.0) K/mm3 RBC 3.13 L (3.65-5.03) M/mm3 Hgb 9.7 L (10.1-14.3) gm/dl Hct 30.4 (30.3-42.9) % Plt Count 132 L (140-440) K/mm3 Lymph # 0.9 L (1.2-5.4) K/mm3 [place] # 1.2 H (0.0-0.8) K/mm3 Eos # 0.0 (0.0-0.4) K/mm3 Baso # 0.0 (0.0-0.1) K/mm3 Comprehensive Metabolic Panel 10/24/18 Range/Units 04:50 Sodium 136 L (137-145) mmol/L Potassium 4.1 (3.6-5.0) mmol/L Chloride 94.6 L (98-107) mmol/L Carbon Dioxide 22 (22-30) mmol/L BUN 25 H (7-17) mg/dL Creatinine 3.3 H (0.7-1.2) mg/dL Glucose 214 H (65-100) mg/dL Calcium 8.5 (8.4-10.2) mg/dL - Imaging and Cardiology EKG: report reviewed (sinus rhythm, heart rate of 78/m consider ischemia and lateral leads)
--- NOTE | 2018-10-24 12:35 | Progress Note ---
Subjective Date of service: 10/24/18 Principal diagnosis: low plt Interval history: reviewed over the heme note as pertains to effect low platelet count would have on the prior embolic stroke there were two seperate stroke neither in the same vasculat territory see the diffusionimags on the MRi this will require careful monitor as low platelet count may contribute to TTP or ITP type of bleeding this will need assessment Objective - Vital Sign Vital Signs - 12hr 10/24/18 10/24/18 10/24/18 00:41 00:51 01:00 Temperature Pulse Rate 90 90 91 H Respiratory 17 12 15 Rate Blood Pressure 108/73 108/73 103/67 O2 Sat by Pulse 100 100 100 Oximetry 10/24/18 10/24/18 10/24/18 01:11 01:21 01:30 Temperature Pulse Rate 90 90 88 Respiratory 17 12 16 Rate Blood Pressure 103/67 103/67 103/67 O2 Sat by Pulse 100 100 100 Oximetry 10/24/18 10/24/18 10/24/18 01:40 01:51 02:00 Temperature Pulse Rate 89 87 86 Respiratory 16 13 13 Rate Blood Pressure 103/67 94/60 O2 Sat by Pulse 100 100 100 Oximetry 10/24/18 10/24/18 10/24/18 02:11 02:21 02:31 Temperature Pulse Rate 85 84 83 Respiratory 13 18 11 L Rate Blood Pressure 94/60 94/60 94/60 O2 Sat by Pulse 100 92 100 Oximetry 10/24/18 10/24/18 10/24/18 02:41 02:51 03:00 Temperature Pulse Rate 81 81 82 Respiratory 18 17 15 Rate Blood Pressure 94/60 94/60 99/63 O2 Sat by Pulse 98 37 L 89 Oximetry 10/24/18 10/24/18 10/24/18 03:11 03:21 03:31 Temperature Pulse Rate 86 87 86 Respiratory 16 18 12 Rate Blood Pressure 99/63 99/63 99/63 O2 Sat by Pulse 87 72 L 100 Oximetry 10/24/18 10/24/18 10/24/18 03:41 03:51 04:01 Temperature Pulse Rate 89 88 88 Respiratory 15 13 12 Rate Blood Pressure 99/63 99/63 100/64 O2 Sat by Pulse 90 28 L 89 Oximetry 10/24/18 10/24/18 10/24/18 04:11 04:21 04:31 Temperature Pulse Rate 88 88 89 Respiratory 17 20 12 Rate Blood Pressure 100/64 100/64 100/64 O2 Sat by Pulse 91 99 100 Oximetry 10/24/18 10/24/18 10/24/18 04:41 04:51 05:00 Temperature Pulse Rate 90 88 87 Respiratory 13 15 16 Rate Blood Pressure 100/64 100/64 100/65 O2 Sat by Pulse 100 100 99 Oximetry 10/24/18 10/24/18 10/24/18 05:11 05:21 05:31 Temperature Pulse Rate 89 89 87 Respiratory 15 13 16 Rate Blood Pressure 100/65 100/65 100/65 O2 Sat by Pulse 100 100 100 Oximetry 10/24/18 10/24/18 10/24/18 05:41 05:51 06:00 Temperature Pulse Rate 90 88 95 H Respiratory 14 16 17 Rate Blood Pressure 100/65 100/65 106/70 O2 Sat by Pulse 100 100 100 Oximetry 10/24/18 10/24/18 10/24/18 06:11 06:21 06:31 Temperature Pulse Rate 92 H 91 H 91 H Respiratory 16 16 16 Rate Blood Pressure 106/70 106/70 106/70 O2 Sat by Pulse 100 100 100 Oximetry 10/24/18 10/24/18 10/24/18 06:41 06:51 07:00 Temperature Pulse Rate 89 90 91 H Respiratory 15 14 15 Rate Blood Pressure 106/70 106/70 96/63 O2 Sat by Pulse 100 100 100 Oximetry 10/24/18 10/24/18 10/24/18 07:11 07:21 07:31 Temperature Pulse Rate 89 90 90 Respiratory 13 23 17 Rate Blood Pressure 96/63 96/63 96/63 O2 Sat by Pulse 100 100 100 Oximetry 10/24/18 10/24/18 10/24/18 07:41 07:51 08:00 Temperature 100.8 F H Pulse Rate 89 88 Respiratory 15 15 Rate Blood Pressure 96/63 96/63 O2 Sat by Pulse 100 100 Oximetry 10/24/18 10/24/18 10/24/18 08:01 08:11 08:21 Temperature Pulse Rate 88 89 87 Respiratory 16 14 14 Rate Blood Pressure 93/64 93/64 93/64 O2 Sat by Pulse 100 100 100 Oximetry 10/24/18 10/24/18 10/24/18 08:31 08:41 08:51 Temperature Pulse Rate 86 87 87 Respiratory 14 16 16 Rate Blood Pressure 93/64 93/64 93/64 O2 Sat by Pulse 100 100 100 Oximetry 10/24/18 10/24/18 10/24/18 09:00 09:11 09:21 Temperature Pulse Rate 87 84 86 Respiratory 13 13 13 Rate Blood Pressure 108/69 108/69 108/69 O2 Sat by Pulse 100 100 100 Oximetry 10/24/18 10/24/18 09:31 09:41 Temperature Pulse Rate 82 84 Respiratory 13 13 Rate Blood Pressure 108/69 108/69 O2 Sat by Pulse 99 100 Oximetry - Laboratory Findings CBC and BMP: 10/24/18 04:50 10/24/18 04:50 Abnormal Lab Findings: Abnormal Labs 10/17/18 10/17/18 10/17/18 10:16 10:19 10:19 RBC Hgb Hct MCV RDW Plt Count Lymph % (Auto) 9.5 L [place] % (Auto) Lymph # 1.0 L [place] # Seg Neutrophils % 84.7 H Seg Neuts % (Manual) Lymphocytes % (Manual) Monocytes % (Manual) Nucleated RBC % Seg Neutrophils # 8.7 H Seg Neutrophils # Man Lymphocytes # (Manual) PT 20.6 H INR 1.81 H POC ABG pH POC ABG pCO2 POC ABG pO2 Sodium Potassium Chloride Carbon Dioxide BUN Creatinine Glucose POC Glucose 277 H Calcium Phosphorus TIBC Ferritin AST ALT Alkaline Phosphatase Lactate Dehydrogenase Total Creatine Kinase Troponin T C-Reactive Protein Total Protein Albumin HDL Cholesterol Vitamin B12 Urine Creatinine Ur Creatinine 24 Hour Urine Total Protein Salicylates Acetaminophen 10/17/18 10/17/18 10/17/18 13:14 13:16 13:34 RBC Hgb Hct MCV RDW Plt Count Lymph % (Auto) [place] % (Auto) Lymph # [place] # Seg Neutrophils % Seg Neuts % (Manual) Lymphocytes % (Manual) Monocytes % (Manual) Nucleated RBC % Seg Neutrophils # Seg Neutrophils # Man Lymphocytes # (Manual) PT INR POC ABG pH POC ABG pCO2 POC ABG pO2 Sodium Potassium Chloride Carbon Dioxide BUN Creatinine Glucose POC Glucose 330 H Calcium Phosphorus TIBC Ferritin AST ALT Alkaline Phosphatase Lactate Dehydrogenase Total Creatine Kinase Troponin T C-Reactive Protein Total Protein Albumin HDL Cholesterol Vitamin B12 Urine Creatinine 276.0 H 271.1 H Ur Creatinine 24 Hour Urine Total Protein 191 H Salicylates Acetaminophen 10/17/18 10/17/18 10/17/18 15:15 21:03 Unknown RBC Hgb Hct MCV RDW Plt Count Lymph % (Auto) [place] % (Auto) Lymph # [place] # Seg Neutrophils % Seg Neuts % (Manual) Lymphocytes % (Manual) Monocytes % (Manual) Nucleated RBC % Seg Neutrophils # Seg Neutrophils # Man Lymphocytes # (Manual) PT INR POC ABG pH POC ABG pCO2 POC ABG pO2 Sodium Potassium 6.6 H* Chloride Carbon Dioxide 10 L BUN 111 H Creatinine 6.5 H Glucose 351 H POC Glucose 143 H Calcium Phosphorus TIBC Ferritin AST ALT Alkaline Phosphatase Lactate Dehydrogenase Total Creatine Kinase 3216 H Troponin T 4.720 H* C-Reactive Protein Total Protein Albumin HDL Cholesterol 88 H Vitamin B12 Urine Creatinine Ur Creatinine 24 Hour Urine Total Protein Salicylates Acetaminophen 10/17/18 10/17/18 10/18/18 Unknown Unknown 07:29 RBC Hgb Hct MCV RDW Plt Count Lymph % (Auto) [place] % (Auto) Lymph # [place] # Seg Neutrophils % Seg Neuts % (Manual) Lymphocytes % (Manual) Monocytes % (Manual) Nucleated RBC % Seg Neutrophils # Seg Neutrophils # Man Lymphocytes # (Manual) PT INR POC ABG pH POC ABG pCO2 POC ABG pO2 Sodium Potassium Chloride Carbon Dioxide BUN Creatinine Glucose POC Glucose 120 H Calcium Phosphorus TIBC Ferritin AST ALT Alkaline Phosphatase Lactate Dehydrogenase Total Creatine Kinase Troponin T C-Reactive Protein Total Protein Albumin HDL Cholesterol Vitamin B12 Urine Creatinine Ur Creatinine 24 Hour Urine Total Protein Salicylates < 0.3 L Acetaminophen < 5.0 L 10/18/18 10/18/18 10/18/18 09:09 09:09 12:21 RBC 3.28 L Hgb Hct MCV RDW Plt Count 125 L Lymph % (Auto) 13.2 L [place] % (Auto) Lymph # 1.1 L [place] # Seg Neutrophils % 80.7 H Seg Neuts % (Manual) Lymphocytes % (Manual) Monocytes % (Manual) Nucleated RBC % Seg Neutrophils # Seg Neutrophils # Man Lymphocytes # (Manual) PT INR POC ABG pH POC ABG pCO2 POC ABG pO2 Sodium Potassium Chloride 97.9 L Carbon Dioxide 20 L D BUN 38 H Creatinine 3.2 H D Glucose 207 H POC Glucose 180 H Calcium Phosphorus TIBC Ferritin AST ALT Alkaline Phosphatase Lactate Dehydrogenase Total Creatine Kinase Troponin T C-Reactive Protein Total Protein Albumin HDL Cholesterol Vitamin B12 Urine Creatinine Ur Creatinine 24 Hour Urine Total Protein Salicylates Acetaminophen 10/18/18 10/18/18 10/19/18 17:14 20:50 05:20 RBC 3.46 L Hgb Hct MCV 98 H RDW 16.4 H Plt Count 55 L Lymph % (Auto) [place] % (Auto) Lymph # [place] # Seg Neutrophils % Seg Neuts % (Manual) Lymphocytes % (Manual) Monocytes % (Manual) 9.0 H Nucleated RBC % 4.0 H Seg Neutrophils # Seg Neutrophils # Man Lymphocytes # (Manual) PT INR POC ABG pH POC ABG pCO2 POC ABG pO2 Sodium Potassium Chloride Carbon Dioxide BUN Creatinine Glucose POC Glucose 256 H 335 H Calcium Phosphorus TIBC Ferritin AST ALT Alkaline Phosphatase Lactate Dehydrogenase Total Creatine Kinase Troponin T C-Reactive Protein Total Protein Albumin HDL Cholesterol Vitamin B12 Urine Creatinine Ur Creatinine 24 Hour Urine Total Protein Salicylates Acetaminophen 10/19/18 10/19/18 10/19/18 05:20 08:34 08:34 RBC Hgb Hct MCV RDW Plt Count Lymph % (Auto) [place] % (Auto) Lymph # [place] # Seg Neutrophils % Seg Neuts % (Manual) Lymphocytes % (Manual) Monocytes % (Manual) Nucleated RBC % Seg Neutrophils # Seg Neutrophils # Man Lymphocytes # (Manual) PT INR POC ABG pH POC ABG pCO2 POC ABG pO2 Sodium Potassium Chloride Carbon Dioxide 21 L BUN 52 H Creatinine 4.2 H Glucose 106 H POC Glucose Calcium Phosphorus TIBC 193 L Ferritin 2450.0 H AST ALT Alkaline Phosphatase Lactate Dehydrogenase 892 H Total Creatine Kinase Troponin T C-Reactive Protein Total Protein Albumin HDL Cholesterol Vitamin B12 Urine Creatinine Ur Creatinine 24 Hour Urine Total Protein Salicylates Acetaminophen 10/19/18 10/19/18 10/19/18 08:34 09:06 13:41 RBC Hgb Hct MCV RDW Plt Count Lymph % (Auto) [place] % (Auto) Lymph # [place] # Seg Neutrophils % Seg Neuts % (Manual) Lymphocytes % (Manual) Monocytes % (Manual) Nucleated RBC % Seg Neutrophils # Seg Neutrophils # Man Lymphocytes # (Manual) PT INR POC ABG pH POC ABG pCO2 POC ABG pO2 Sodium Potassium Chloride Carbon Dioxide BUN Creatinine Glucose POC Glucose 141 H 156 H Calcium Phosphorus TIBC Ferritin AST ALT Alkaline Phosphatase Lactate Dehydrogenase Total Creatine Kinase Troponin T C-Reactive Protein Total Protein Albumin HDL Cholesterol Vitamin B12 1296 H Urine Creatinine Ur Creatinine 24 Hour Urine Total Protein Salicylates Acetaminophen 10/19/18 10/19/18 10/20/18 15:53 22:51 05:07 RBC 3.23 L Hgb 10.0 L Hct MCV RDW 15.7 H Plt Count 111 L D Lymph % (Auto) [place] % (Auto) 8.0 H Lymph # [place] # Seg Neutrophils % Seg Neuts % (Manual) Lymphocytes % (Manual) Monocytes % (Manual) Nucleated RBC % Seg Neutrophils # Seg Neutrophils # Man Lymphocytes # (Manual) PT INR POC ABG pH POC ABG pCO2 POC ABG pO2 Sodium Potassium Chloride Carbon Dioxide BUN Creatinine Glucose POC Glucose 193 H 228 H Calcium Phosphorus TIBC Ferritin AST ALT Alkaline Phosphatase Lactate Dehydrogenase Total Creatine Kinase Troponin T C-Reactive Protein Total Protein Albumin HDL Cholesterol Vitamin B12 Urine Creatinine Ur Creatinine 24 Hour Urine Total Protein Salicylates Acetaminophen 10/20/18 10/20/18 10/20/18 05:07 10:44 13:45 RBC Hgb Hct MCV RDW Plt Count Lymph % (Auto) [place] % (Auto) Lymph # [place] # Seg Neutrophils % Seg Neuts % (Manual) Lymphocytes % (Manual) Monocytes % (Manual) Nucleated RBC % Seg Neutrophils # Seg Neutrophils # Man Lymphocytes # (Manual) PT INR POC ABG pH POC ABG pCO2 POC ABG pO2 Sodium Potassium Chloride Carbon Dioxide BUN 32 H Creatinine 3.2 H Glucose 177 H POC Glucose 160 H Calcium 8.0 L Phosphorus TIBC Ferritin AST 305 H ALT 728 H Alkaline Phosphatase 402 H Lactate Dehydrogenase Total Creatine Kinase Troponin T C-Reactive Protein Total Protein 6.0 L Albumin 2.9 L HDL Cholesterol Vitamin B12 Urine Creatinine 157.6 H Ur Creatinine 24 Hour Urine Total Protein Salicylates Acetaminophen 10/20/18 10/20/18 10/21/18 17:19 20:44 05:57 RBC 3.16 L Hgb 10.0 L Hct 29.9 L MCV RDW 15.4 H Plt Count 125 L Lymph % (Auto) [place] % (Auto) 9.6 H Lymph # [place] # Seg Neutrophils % 71.3 H Seg Neuts % (Manual) Lymphocytes % (Manual) Monocytes % (Manual) Nucleated RBC % Seg Neutrophils # Seg Neutrophils # Man Lymphocytes # (Manual) PT INR POC ABG pH POC ABG pCO2 POC ABG pO2 Sodium Potassium Chloride Carbon Dioxide BUN Creatinine Glucose POC Glucose 143 H 234 H Calcium Phosphorus TIBC Ferritin AST ALT Alkaline Phosphatase Lactate Dehydrogenase Total Creatine Kinase Troponin T C-Reactive Protein Total Protein Albumin HDL Cholesterol Vitamin B12 Urine Creatinine Ur Creatinine 24 Hour Urine Total Protein Salicylates Acetaminophen 10/21/18 10/21/18 10/21/18 05:57 07:55 12:05 RBC Hgb Hct MCV RDW Plt Count Lymph % (Auto) [place] % (Auto) Lymph # [place] # Seg Neutrophils % Seg Neuts % (Manual) Lymphocytes % (Manual) Monocytes % (Manual) Nucleated RBC % Seg Neutrophils # Seg Neutrophils # Man Lymphocytes # (Manual) PT INR POC ABG pH POC ABG pCO2 POC ABG pO2 Sodium Potassium Chloride Carbon Dioxide BUN 47 H Creatinine 4.9 H D Glucose 229 H POC Glucose 239 H 446 H Calcium 8.0 L Phosphorus TIBC Ferritin AST ALT Alkaline Phosphatase Lactate Dehydrogenase Total Creatine Kinase Troponin T C-Reactive Protein Total Protein Albumin HDL Cholesterol Vitamin B12 Urine Creatinine Ur Creatinine 24 Hour Urine Total Protein Salicylates Acetaminophen 10/21/18 10/21/18 10/22/18 15:40 18:19 00:45 RBC Hgb Hct MCV RDW Plt Count Lymph % (Auto) [place] % (Auto) Lymph # [place] # Seg Neutrophils % Seg Neuts % (Manual) Lymphocytes % (Manual) Monocytes % (Manual) Nucleated RBC % Seg Neutrophils # Seg Neutrophils # Man Lymphocytes # (Manual) PT INR POC ABG pH POC ABG pCO2 POC ABG pO2 Sodium Potassium Chloride Carbon Dioxide BUN Creatinine Glucose POC Glucose 263 H 179 H Calcium Phosphorus TIBC Ferritin AST ALT Alkaline Phosphatase Lactate Dehydrogenase Total Creatine Kinase Troponin T C-Reactive Protein Total Protein Albumin HDL Cholesterol Vitamin B12 Urine Creatinine 196.7 H Ur Creatinine 24 Hour 0.1 L Urine Total Protein Salicylates Acetaminophen 10/22/18 10/22/18 10/22/18 06:24 06:24 12:47 RBC 3.17 L Hgb 9.9 L Hct MCV RDW 15.7 H Plt Count 134 L Lymph % (Auto) [place] % (Auto) Lymph # [place] # Seg Neutrophils % Seg Neuts % (Manual) 78.0 H Lymphocytes % (Manual) Monocytes % (Manual) Nucleated RBC % Seg Neutrophils # Seg Neutrophils # Man 8.3 H Lymphocytes # (Manual) PT INR POC ABG pH POC ABG pCO2 POC ABG pO2 Sodium Potassium Chloride Carbon Dioxide BUN 33 H Creatinine 3.9 H Glucose 171 H POC Glucose 210 H Calcium Phosphorus TIBC Ferritin AST ALT Alkaline Phosphatase Lactate Dehydrogenase Total Creatine Kinase Troponin T C-Reactive Protein Total Protein Albumin HDL Cholesterol Vitamin B12 Urine Creatinine Ur Creatinine 24 Hour Urine Total Protein Salicylates Acetaminophen 10/22/18 10/22/18 10/23/18 18:33 21:58 05:24 RBC 3.49 L Hgb Hct MCV RDW 16.7 H Plt Count Lymph % (Auto) [place] % (Auto) Lymph # [place] # Seg Neutrophils % Seg Neuts % (Manual) 88.0 H Lymphocytes % (Manual) 6.0 L Monocytes % (Manual) Nucleated RBC % Seg Neutrophils # Seg Neutrophils # Man 9.3 H Lymphocytes # (Manual) 0.6 L PT INR POC ABG pH POC ABG pCO2 POC ABG pO2 Sodium Potassium Chloride Carbon Dioxide BUN Creatinine Glucose POC Glucose 176 H 230 H Calcium Phosphorus TIBC Ferritin AST ALT Alkaline Phosphatase Lactate Dehydrogenase Total Creatine Kinase Troponin T C-Reactive Protein Total Protein Albumin HDL Cholesterol Vitamin B12 Urine Creatinine Ur Creatinine 24 Hour Urine Total Protein Salicylates Acetaminophen 10/23/18 10/23/18 10/23/18 05:24 07:31 11:51 RBC Hgb Hct MCV RDW Plt Count Lymph % (Auto) [place] % (Auto) Lymph # [place] # Seg Neutrophils % Seg Neuts % (Manual) Lymphocytes % (Manual) Monocytes % (Manual) Nucleated RBC % Seg Neutrophils # Seg Neutrophils # Man Lymphocytes # (Manual) PT INR POC ABG pH 7.346 L POC ABG pCO2 POC ABG pO2 116 H Sodium Potassium Chloride Carbon Dioxide BUN 49 H Creatinine 5.0 H Glucose 211 H POC Glucose 137 H Calcium Phosphorus 5.30 H D TIBC Ferritin AST ALT Alkaline Phosphatase Lactate Dehydrogenase Total Creatine Kinase Troponin T C-Reactive Protein Total Protein Albumin HDL Cholesterol Vitamin B12 Urine Creatinine Ur Creatinine 24 Hour Urine Total Protein Salicylates Acetaminophen 10/23/18 10/23/18 10/23/18 14:59 18:29 20:51 RBC Hgb Hct MCV RDW Plt Count Lymph % (Auto) [place] % (Auto) Lymph # [place] # Seg Neutrophils % Seg Neuts % (Manual) Lymphocytes % (Manual) Monocytes % (Manual) Nucleated RBC % Seg Neutrophils # Seg Neutrophils # Man Lymphocytes # (Manual) PT INR POC ABG pH POC ABG pCO2 34.3 L POC ABG pO2 Sodium Potassium Chloride Carbon Dioxide BUN Creatinine Glucose POC Glucose 182 H Calcium Phosphorus TIBC Ferritin AST ALT Alkaline Phosphatase Lactate Dehydrogenase Total Creatine Kinase Troponin T C-Reactive Protein 24.10 H Total Protein Albumin HDL Cholesterol Vitamin B12 Urine Creatinine Ur Creatinine 24 Hour Urine Total Protein Salicylates Acetaminophen 10/23/18 10/24/18 10/24/18 23:37 04:50 04:50 RBC 3.13 L Hgb 9.7 L Hct MCV RDW 16.8 H Plt Count 132 L Lymph % (Auto) 8.0 L [place] % (Auto) 10.9 H Lymph # 0.9 L [place] # 1.2 H Seg Neutrophils % 80.6 H Seg Neuts % (Manual) Lymphocytes % (Manual) Monocytes % (Manual) Nucleated RBC % Seg Neutrophils # 8.8 H Seg Neutrophils # Man Lymphocytes # (Manual) PT INR POC ABG pH POC ABG pCO2 POC ABG pO2 Sodium 136 L Potassium Chloride 94.6 L Carbon Dioxide BUN 25 H Creatinine 3.3 H Glucose 214 H POC Glucose 232 H Calcium Phosphorus TIBC Ferritin AST ALT Alkaline Phosphatase Lactate Dehydrogenase Total Creatine Kinase Troponin T C-Reactive Protein Total Protein Albumin HDL Cholesterol Vitamin B12 Urine Creatinine Ur Creatinine 24 Hour Urine Total Protein Salicylates Acetaminophen 10/24/18 07:44 RBC Hgb Hct MCV RDW Plt Count Lymph % (Auto) [place] % (Auto) Lymph # [place] # Seg Neutrophils % Seg Neuts % (Manual) Lymphocytes % (Manual) Monocytes % (Manual) Nucleated RBC % Seg Neutrophils # Seg Neutrophils # Man Lymphocytes # (Manual) PT INR POC ABG pH POC ABG pCO2 POC ABG pO2 Sodium Potassium Chloride Carbon Dioxide BUN Creatinine Glucose POC Glucose 219 H Calcium Phosphorus TIBC Ferritin AST ALT Alkaline Phosphatase Lactate Dehydrogenase Total Creatine Kinase Troponin T C-Reactive Protein Total Protein Albumin HDL Cholesterol Vitamin B12 Urine Creatinine Ur Creatinine 24 Hour Urine Total Protein Salicylates Acetaminophen
--- NOTE | 2018-10-24 15:52 | Progress Note ---
Assessment and Plan Acute renal failure on chronic kidney disease stage III/IV AG metabolic acidosis Hyperkalemia Metabolic encephalopathy CVA - s/p HD yesterday, no HD today, Eval for need daily. - Creatinine clearance was 3 ml/min - Urine eosinophils were negative - Renal US- negative for obstruction - Renally dose medications - Strict I&O monitoring - Obtain daily weights - Assess dialysis needs daily - Consulted case management for outpatient HD placement to [facility] Subjective Date of service: 10/24/18 Principal diagnosis: low plt Interval history: On IHD. In ICU. Objective - Exam Narrative Exam: - General Appearance General appearance: fatigue, other (Lethargic) EENT: ATNC Neck: no JVD, supple Respiratory: Present: Decreased Breath Sounds Cardiology: S1S2 Gastrointestinal: normoactive bowel sounds Integumentary: warm and dry Neurologic: other (Lethargic) Musculoskeletal: other (none) - Vital Signs Vital signs: Vital Signs - 12hr 10/24/18 10/24/18 10/24/18 04:01 04:11 04:21 Temperature Pulse Rate 88 88 88 Respiratory 12 17 20 Rate Blood Pressure 100/64 100/64 100/64 O2 Sat by Pulse 89 91 99 Oximetry 10/24/18 10/24/18 10/24/18 04:31 04:41 04:51 Temperature Pulse Rate 89 90 88 Respiratory 12 13 15 Rate Blood Pressure 100/64 100/64 100/64 O2 Sat by Pulse 100 100 100 Oximetry 10/24/18 10/24/18 10/24/18 05:00 05:11 05:21 Temperature Pulse Rate 87 89 89 Respiratory 16 15 13 Rate Blood Pressure 100/65 100/65 100/65 O2 Sat by Pulse 99 100 100 Oximetry 10/24/18 10/24/18 10/24/18 05:31 05:41 05:51 Temperature Pulse Rate 87 90 88 Respiratory 16 14 16 Rate Blood Pressure 100/65 100/65 100/65 O2 Sat by Pulse 100 100 100 Oximetry 10/24/18 10/24/18 10/24/18 06:00 06:11 06:21 Temperature Pulse Rate 95 H 92 H 91 H Respiratory 17 16 16 Rate Blood Pressure 106/70 106/70 106/70 O2 Sat by Pulse 100 100 100 Oximetry 10/24/18 10/24/18 10/24/18 06:31 06:41 06:51 Temperature Pulse Rate 91 H 89 90 Respiratory 16 15 14 Rate Blood Pressure 106/70 106/70 106/70 O2 Sat by Pulse 100 100 100 Oximetry 10/24/18 10/24/18 10/24/18 07:00 07:11 07:21 Temperature Pulse Rate 91 H 89 90 Respiratory 15 13 23 Rate Blood Pressure 96/63 96/63 96/63 O2 Sat by Pulse 100 100 100 Oximetry 10/24/18 10/24/18 10/24/18 07:31 07:41 07:51 Temperature Pulse Rate 90 89 88 Respiratory 17 15 15 Rate Blood Pressure 96/63 96/63 96/63 O2 Sat by Pulse 100 100 100 Oximetry 10/24/18 10/24/18 10/24/18 08:00 08:01 08:11 Temperature 100.8 F H Pulse Rate 88 89 Respiratory 16 14 Rate Blood Pressure 93/64 93/64 O2 Sat by Pulse 100 100 Oximetry 10/24/18 10/24/18 10/24/18 08:21 08:31 08:41 Temperature Pulse Rate 87 86 87 Respiratory 14 14 16 Rate Blood Pressure 93/64 93/64 93/64 O2 Sat by Pulse 100 100 100 Oximetry 10/24/18 10/24/18 10/24/18 08:51 09:00 09:11 Temperature Pulse Rate 87 87 84 Respiratory 16 13 13 Rate Blood Pressure 93/64 108/69 108/69 O2 Sat by Pulse 100 100 100 Oximetry 10/24/18 10/24/18 10/24/18 09:21 09:31 09:41 Temperature Pulse Rate 86 82 84 Respiratory 13 13 13 Rate Blood Pressure 108/69 108/69 108/69 O2 Sat by Pulse 100 99 100 Oximetry 10/24/18 10/24/18 10/24/18 09:51 10:00 10:11 Temperature Pulse Rate 83 82 82 Respiratory 16 14 13 Rate Blood Pressure 108/69 111/71 111/71 O2 Sat by Pulse 100 100 100 Oximetry 10/24/18 10/24/18 10/24/18 10:21 10:31 10:41 Temperature Pulse Rate 83 84 83 Respiratory 14 17 16 Rate Blood Pressure 111/71 111/71 111/71 O2 Sat by Pulse 100 100 100 Oximetry 10/24/18 10/24/18 10/24/18 10:51 11:00 11:11 Temperature Pulse Rate 85 83 86 Respiratory 14 16 14 Rate Blood Pressure 111/71 107/73 107/73 O2 Sat by Pulse 100 100 100 Oximetry 10/24/18 10/24/18 10/24/18 11:21 11:31 11:41 Temperature Pulse Rate 82 84 84 Respiratory 11 L 16 16 Rate Blood Pressure 107/73 107/73 107/73 O2 Sat by Pulse 100 100 100 Oximetry 10/24/18 10/24/18 10/24/18 11:51 12:00 12:11 Temperature Pulse Rate 84 82 82 Respiratory 16 14 17 Rate Blood Pressure 107/73 112/75 112/75 O2 Sat by Pulse 100 99 100 Oximetry 10/24/18 10/24/18 10/24/18 12:21 12:31 12:41 Temperature Pulse Rate 80 80 86 Respiratory 12 14 18 Rate Blood Pressure 112/75 112/75 112/75 O2 Sat by Pulse 100 100 100 Oximetry 10/24/18 10/24/18 10/24/18 12:51 13:00 13:11 Temperature Pulse Rate 80 79 78 Respiratory 13 12 13 Rate Blood Pressure 112/75 110/69 110/69 O2 Sat by Pulse 100 100 100 Oximetry 10/24/18 10/24/18 10/24/18 13:21 13:31 13:41 Temperature Pulse Rate 84 81 80 Respiratory 19 18 17 Rate Blood Pressure 110/69 110/69 110/69 O2 Sat by Pulse 100 100 100 Oximetry 10/24/18 10/24/18 10/24/18 13:51 14:00 14:11 Temperature Pulse Rate 81 78 79 Respiratory 10 L 9 L 16 Rate Blood Pressure 110/69 102/67 102/67 O2 Sat by Pulse 100 100 100 Oximetry 10/24/18 10/24/18 10/24/18 14:21 14:31 14:41 Temperature Pulse Rate 80 80 82 Respiratory 13 15 17 Rate Blood Pressure 102/67 102/67 102/67 O2 Sat by Pulse 100 100 100 Oximetry 10/24/18 10/24/18 10/24/18 14:51 15:00 15:11 Temperature Pulse Rate 78 78 78 Respiratory 16 15 16 Rate Blood Pressure 102/67 98/68 98/68 O2 Sat by Pulse 100 100 100 Oximetry 10/24/18 15:21 Temperature Pulse Rate 77 Respiratory 14 Rate Blood Pressure 98/68 O2 Sat by Pulse 100 Oximetry - Lab 10/24/18 04:50 10/24/18 04:50 Most recent lab results Calcium 8.5 mg/dL (8.4-10.2) 10/24/18 04:50 Phosphorus 5.30 mg/dL (2.5-4.5) H D 10/23/18 05:24 Magnesium 1.70 mg/dL (1.7-2.3) 10/20/18 12:22 196.7 mg/dL (0.1-20.0) H 10/21/18 18:19 12 mmol/L 10/17/18 13:34 191 mg/dL (5-11.8) H 10/17/18 13:16 Medications & Allergies - Medications Allergies/Adverse Reactions: Allergies NSAIDS (Non-Steroidal Anti-Inflamma Adverse Reaction (Verified 01/02/17 05:56) Unknown Tetracyclines Adverse Reaction (Verified 09/26/14 12:09) Unknown Home Medications: Home Medications Medication Instructions Recorded Confirmed Last Taken Type Ergocalciferol [Vitamin D2] 50,000 unit PO QWEEK capsule 09/25/16 10/17/18 Unknown Rx Latanoprost 0.005% 1 drop OP QPM 01/02/17 10/17/18 Unknown History Sodium Bicarbonate 325 mg PO DAILY 01/02/17 10/17/18 Unknown History Clopidogrel [Plavix] 75 mg PO DAILY #30 tablet 01/08/17 10/17/18 Unknown Rx Docusate Sodium [Colace CAP] 100 mg PO BID #60 capsule 01/08/17 10/17/18 Unknown Rx Famotidine [Pepcid] 10 mg PO BID #60 tablet 01/08/17 10/17/18 Unknown Rx Gabapentin [Neurontin] 300 mg PO QHS #30 capsule 01/08/17 10/17/18 Unknown Rx Simvastatin [Zocor TAB] 20 mg PO QHS #60 tablet 01/08/17 10/17/18 Unknown Rx glipiZIDE [Glucotrol] 5 mg PO QDDIAB #60 tablet 01/08/17 10/17/18 Unknown Rx hydrALAZINE [Apresoline TAB] 10 mg PO Q8HR #90 tablet 01/08/17 10/17/18 Unknown Rx levETIRAcetam [Keppra TAB] 500 mg PO BID #60 tablet 01/08/17 10/17/18 Unknown Rx Active Medications: Generic Name Dose Route Start Last Admin Trade Name Ercih PRN Reason Stop Dose Admin Clopidogrel Bisulfate 75 mg 10/21/18 11:00 10/24/18 10:33 Plavix PO 75 mg QDAY ALLEY Administration Docusate Sodium 100 mg 10/17/18 22:00 10/24/18 10:33 Colace PO 100 mg BID ALLEY Administration Ergocalciferol 50,000 unit 10/24/18 10:00 10/24/18 10:42 Vitamin D2 PO 50,000 unit Sa ALLEY Administration Famotidine 20 mg 10/21/18 10:00 10/24/18 10:33 Pepcid PO 20 mg DAILY ALLEY Administration Gabapentin 300 mg 10/17/18 22:00 10/23/18 22:00 Neurontin PO 300 mg QHS ALLEY Administration Phenylephrine HCl 100 mg/ 100 mls @ 3 mls/hr 10/23/18 11:30 Sodium Chloride IV TITR ALLEY Protocol 50 MCG/MIN Insulin Human Lispro 0 unit 10/24/18 12:00 10/24/18 11:59 Humalog SUB-Q 4 unit Q6HR ALLEY Administration Protocol Latanoprost 1 drops 10/17/18 18:00 10/23/18 18:00 Latanoprost 0.005% OU Not Given QPM [facility] Levetiracetam 500 mg 10/21/18 10:00 10/24/18 10:33 Keppra PO 500 mg BID ALLEY Administration Sodium Bicarbonate 325 mg 10/17/18 17:00 10/24/18 10:33 Sodium Bicarbonate PO 325 mg DAILY ALLEY Administration
[2018-10-24] MEDS: LATANOPROST 0.005% OU SCH (18:46)
[2018-10-24] MEDS ORDERED: COLACE PO SCH (23:00)
[2018-10-24] MEDS: COLACE FEEDTUBE SCH (23:21)
[2018-10-24] MEDS: NEURONTIN PO SCH (23:21)
[2018-10-25] MEDS: HumaLOG SUB-Q SCH ×4 (01:25→17:19)
[2018-10-25] MEDS ORDERED: SIMPLE SYRUP FEEDTUBE PRN ×2 (09:18)
[2018-10-25] MEDS ORDERED: SODIUM BICARBONATE FEEDTUBE PRN (09:18)
[2018-10-25] MEDS ORDERED: PANCREAZE DR 10,500 UNIT FEEDTUBE PRN (09:18)
[2018-10-25] MEDS: PLAVIX PO SCH (09:25)
[2018-10-25] MEDS: PEPCID PO SCH (09:25)
[2018-10-25] MEDS: SODIUM BICARBONATE PO SCH (09:25)
[2018-10-25] MEDS: KEPPRA PO SCH ×2 (09:25→22:19)
--- NOTE | 2018-10-25 10:35 | Progress Note ---
Assessment and Plan 1. Acute CVA 2. End-stage renal disease on hemodialysis 3. Coronary artery disease status post H. 4. Essential hypertension 5. Type 2 diabetes mellitus 6. Paroxysmal nonsustained VT Echocardiogram shows dilated left ventricle with severe global hypokinesis LV ejection fraction 10-15%. Significant decrease in LV ejection fraction noted. Rule out progression of ischemic coronary artery disease. Plan. Patient to have [facility] to assess for cardiac embolic source Subjective Date of service: 10/25/18 Principal diagnosis: low plt Interval history: No change in cardiac clinal status. Nonverbal or communicative Objective Vital Signs Temp Pulse Pulse Resp BP BP Pulse Ox 10/25/18 10:15 98 10/25/18 09:37 85 10/25/18 08:10 98.3 F 85 18 123/74 100 10/25/18 03:58 98.4 F 10/25/18 03:56 80 16 105/70 100 10/24/18 23:30 99.0 F 10/24/18 23:28 81 20 113/74 100 10/24/18 20:42 98.7 F 73 18 132/89 92 10/24/18 20:41 18 132/89 10/24/18 19:56 98 10/24/18 18:00 79 10/24/18 16:42 107/71 10/24/18 16:41 78 16 113/84 95 10/24/18 16:11 107/71 100 10/24/18 16:00 80 16 107/71 100 10/24/18 15:51 76 16 98/68 100 10/24/18 15:41 81 17 98/68 100 10/24/18 15:31 82 16 98/68 100 10/24/18 15:21 77 14 98/68 100 10/24/18 15:11 78 16 98/68 100 10/24/18 15:00 78 15 98/68 100 10/24/18 14:51 78 16 102/67 100 10/24/18 14:41 82 17 102/67 100 10/24/18 14:31 80 15 102/67 100 10/24/18 14:21 80 13 102/67 100 10/24/18 14:11 79 16 102/67 100 10/24/18 14:00 78 9 L 102/67 100 10/24/18 13:51 81 10 L 110/69 100 10/24/18 13:41 80 17 110/69 100 10/24/18 13:31 81 18 110/69 100 10/24/18 13:21 84 19 110/69 100 10/24/18 13:11 78 13 110/69 100 10/24/18 13:00 79 12 110/69 100 10/24/18 12:51 80 13 112/75 10/24/18 12:41 86 18 112/75 10/24/18 12:31 80 14 112/75 100 10/24/18 12:21 80 12 112/75 10/24/18 12:11 82 17 112/75 10/24/18 12:00 82 14 112/75 99 10/24/18 11:51 84 16 107/73 100 10/24/18 11:41 84 16 107/73 100 10/24/18 11:31 84 16 107/73 100 10/24/18 11:21 82 11 L 107/73 100 10/24/18 11:11 86 14 107/73 10/24/18 11:00 83 16 107/73 10/24/18 10:51 85 14 111/71 100 10/24/18 10:41 83 16 111/71 100 - Physical Examination General: Appears Well, No Apparent Distress HEENT: Positive: PERRL Neck: Positive: trachea midline. Negative: JVD/HJR Cardiac: Positive: Regular Rate, S1/S2, PMI, Dilated, Laterally Displaced Lungs: Positive: clear to auscultation, No Wheeze, Rales, Rhonchi Neuro: Positive: Grossly Intact, Other (Nonverbal or communicative) Extremities: Absent: edema - Imaging and Cardiology EKG: report reviewed (sinus rhythm, heart rate of 78/m consider ischemia and lateral leads)
[2018-10-25] MEDS: COLACE FEEDTUBE SCH ×2 (10:50→22:19)
[2018-10-25 12:17] LABS: Calcium 8.8 mg/dL (8.4-10.2)
--- NOTE | 2018-10-25 12:38 | Progress Note ---
Assessment and Plan Post procedure hypotension, resolved Subacute CVA Acute metabolic encephalopathy ARF/CKD 4 vasomotor +ATN Hyperkalemia: Hx of cad, s/p CABG New onset systolic CHF EF 5-10% Wide complex tachycardia Thrombocytopenia -Cardio-protective measures -Heart failure measures -Supportive HD -VTE prophylaxis -Aspiration precautions, nutrition consult for tube feeding -PT/OT/ST -VTE prophylaxis -Secondary stroke prophylaxis -Life vest -Avoid nephrotoxins Subjective Date of service: 10/25/18 Principal diagnosis: Stroke Interval history: Patient is seen today for: Hypotension requiring vasopressor support. Seen and examined at bedside; 24hour events reviewed; nursing and respiratory care staff consulted; no adverse overnight events reported to me; Blood pressure remains within acceptable range, no fevers, no vomiting, remains non-verbal. Vitals, labs,medications, chart reviewed Objective - Exam Narrative Exam: Vitals reviewed General appearance: fatigue, other (Lethargic), chronically ill looking, not in any acute distress EENT: ATNC, small bowel feeding tube in nares Neck: no JVD, supple Respiratory: Decreased AE bilaterally, CTA Cardiology: S1S2 Gastrointestinal: Soft, ND, NT,normoactive bowel sounds Integumentary: warm and dry Neurologic: other (Lethargic), not following commands Musculoskeletal: No edema, no cyanosis, no clubbing Vital Signs - 12hr 10/25/18 10/25/18 10/25/18 03:56 03:58 08:10 Temperature 98.4 F 98.3 F Pulse Rate 80 85 Pulse Rate [ From Monitor] Respiratory 16 18 Rate Blood Pressure 105/70 123/74 O2 Sat by Pulse 100 100 Oximetry 10/25/18 10/25/18 09:37 10:15 Temperature Pulse Rate Pulse Rate [ 85 From Monitor] Respiratory Rate Blood Pressure O2 Sat by Pulse 98 Oximetry Gastrointestinal: normoactive bowel sounds, soft, non-tender Integumentary: normal CBC and BMP: 10/24/18 04:50 10/25/18 11:31 ABG, PT/INR, D-dimer: ABG POC ABG pH 7.436 (7.35-7.45) 10/23/18 20:51 POC ABG pCO2 34.3 (35-45) L 10/23/18 20:51 POC ABG pO2 95 (80-105) 10/23/18 20:51 POC ABG HCO3 23.1 (22-26 mml/L) 10/23/18 20:51 POC ABG Total CO2 24 (23-27mmol/L) 10/23/18 20:51 POC ABG O2 Sat 98 10/23/18 20:51 PT/INR, D-dimer PT 20.6 Sec. (12.2-14.9) H 10/17/18 10:19 INR 1.81 (0.87-1.13) H 10/17/18 10:19 Abnormal lab findings: Abnormal Labs 10/17/18 10/17/18 10/17/18 10:16 10:19 10:19 RBC Hgb Hct MCV RDW Plt Count Lymph % (Auto) 9.5 L [place] % (Auto) Lymph # 1.0 L [place] # Seg Neutrophils % 84.7 H Seg Neuts % (Manual) Lymphocytes % (Manual) Monocytes % (Manual) Nucleated RBC % Seg Neutrophils # 8.7 H Seg Neutrophils # Man Lymphocytes # (Manual) PT 20.6 H INR 1.81 H POC ABG pH POC ABG pCO2 POC ABG pO2 Sodium Potassium Chloride Carbon Dioxide BUN Creatinine Glucose POC Glucose 277 H Calcium Phosphorus TIBC Ferritin AST ALT Alkaline Phosphatase Lactate Dehydrogenase Total Creatine Kinase Troponin T C-Reactive Protein Total Protein Albumin HDL Cholesterol Vitamin B12 Urine Creatinine Ur Creatinine 24 Hour Urine Total Protein Salicylates Acetaminophen 10/17/18 10/17/18 10/17/18 13:14 13:16 13:34 RBC Hgb Hct MCV RDW Plt Count Lymph % (Auto) [place] % (Auto) Lymph # [place] # Seg Neutrophils % Seg Neuts % (Manual) Lymphocytes % (Manual) Monocytes % (Manual) Nucleated RBC % Seg Neutrophils # Seg Neutrophils # Man Lymphocytes # (Manual) PT INR POC ABG pH POC ABG pCO2 POC ABG pO2 Sodium Potassium Chloride Carbon Dioxide BUN Creatinine Glucose POC Glucose 330 H Calcium Phosphorus TIBC Ferritin AST ALT Alkaline Phosphatase Lactate Dehydrogenase Total Creatine Kinase Troponin T C-Reactive Protein Total Protein Albumin HDL Cholesterol Vitamin B12 Urine Creatinine 276.0 H 271.1 H Ur Creatinine 24 Hour Urine Total Protein 191 H Salicylates Acetaminophen 10/17/18 10/17/18 10/17/18 15:15 21:03 Unknown RBC Hgb Hct MCV RDW Plt Count Lymph % (Auto) [place] % (Auto) Lymph # [place] # Seg Neutrophils % Seg Neuts % (Manual) Lymphocytes % (Manual) Monocytes % (Manual) Nucleated RBC % Seg Neutrophils # Seg Neutrophils # Man Lymphocytes # (Manual) PT INR POC ABG pH POC ABG pCO2 POC ABG pO2 Sodium Potassium 6.6 H* Chloride Carbon Dioxide 10 L BUN 111 H Creatinine 6.5 H Glucose 351 H POC Glucose 143 H Calcium Phosphorus TIBC Ferritin AST ALT Alkaline Phosphatase Lactate Dehydrogenase Total Creatine Kinase 3216 H Troponin T 4.720 H* C-Reactive Protein Total Protein Albumin HDL Cholesterol 88 H Vitamin B12 Urine Creatinine Ur Creatinine 24 Hour Urine Total Protein Salicylates Acetaminophen 10/17/18 10/17/18 10/18/18 Unknown Unknown 07:29 RBC Hgb Hct MCV RDW Plt Count Lymph % (Auto) [place] % (Auto) Lymph # [place] # Seg Neutrophils % Seg Neuts % (Manual) Lymphocytes % (Manual) Monocytes % (Manual) Nucleated RBC % Seg Neutrophils # Seg Neutrophils # Man Lymphocytes # (Manual) PT INR POC ABG pH POC ABG pCO2 POC ABG pO2 Sodium Potassium Chloride Carbon Dioxide BUN Creatinine Glucose POC Glucose 120 H Calcium Phosphorus TIBC Ferritin AST ALT Alkaline Phosphatase Lactate Dehydrogenase Total Creatine Kinase Troponin T C-Reactive Protein Total Protein Albumin HDL Cholesterol Vitamin B12 Urine Creatinine Ur Creatinine 24 Hour Urine Total Protein Salicylates < 0.3 L Acetaminophen < 5.0 L 10/18/18 10/18/18 10/18/18 09:09 09:09 12:21 RBC 3.28 L Hgb Hct MCV RDW Plt Count 125 L Lymph % (Auto) 13.2 L [place] % (Auto) Lymph # 1.1 L [place] # Seg Neutrophils % 80.7 H Seg Neuts % (Manual) Lymphocytes % (Manual) Monocytes % (Manual) Nucleated RBC % Seg Neutrophils # Seg Neutrophils # Man Lymphocytes # (Manual) PT INR POC ABG pH POC ABG pCO2 POC ABG pO2 Sodium Potassium Chloride 97.9 L Carbon Dioxide 20 L D BUN 38 H Creatinine 3.2 H D Glucose 207 H POC Glucose 180 H Calcium Phosphorus TIBC Ferritin AST ALT Alkaline Phosphatase Lactate Dehydrogenase Total Creatine Kinase Troponin T C-Reactive Protein Total Protein Albumin HDL Cholesterol Vitamin B12 Urine Creatinine Ur Creatinine 24 Hour Urine Total Protein Salicylates Acetaminophen 10/18/18 10/18/18 10/19/18 17:14 20:50 05:20 RBC 3.46 L Hgb Hct MCV 98 H RDW 16.4 H Plt Count 55 L Lymph % (Auto) [place] % (Auto) Lymph # [place] # Seg Neutrophils % Seg Neuts % (Manual) Lymphocytes % (Manual) Monocytes % (Manual) 9.0 H Nucleated RBC % 4.0 H Seg Neutrophils # Seg Neutrophils # Man Lymphocytes # (Manual) PT INR POC ABG pH POC ABG pCO2 POC ABG pO2 Sodium Potassium Chloride Carbon Dioxide BUN Creatinine Glucose POC Glucose 256 H 335 H Calcium Phosphorus TIBC Ferritin AST ALT Alkaline Phosphatase Lactate Dehydrogenase Total Creatine Kinase Troponin T C-Reactive Protein Total Protein Albumin HDL Cholesterol Vitamin B12 Urine Creatinine Ur Creatinine 24 Hour Urine Total Protein Salicylates Acetaminophen 10/19/18 10/19/18 10/19/18 05:20 08:34 08:34 RBC Hgb Hct MCV RDW Plt Count Lymph % (Auto) [place] % (Auto) Lymph # [place] # Seg Neutrophils % Seg Neuts % (Manual) Lymphocytes % (Manual) Monocytes % (Manual) Nucleated RBC % Seg Neutrophils # Seg Neutrophils # Man Lymphocytes # (Manual) PT INR POC ABG pH POC ABG pCO2 POC ABG pO2 Sodium Potassium Chloride Carbon Dioxide 21 L BUN 52 H Creatinine 4.2 H Glucose 106 H POC Glucose Calcium Phosphorus TIBC 193 L Ferritin 2450.0 H AST ALT Alkaline Phosphatase Lactate Dehydrogenase 892 H Total Creatine Kinase Troponin T C-Reactive Protein Total Protein Albumin HDL Cholesterol Vitamin B12 Urine Creatinine Ur Creatinine 24 Hour Urine Total Protein Salicylates Acetaminophen 10/19/18 10/19/18 10/19/18 08:34 09:06 13:41 RBC Hgb Hct MCV RDW Plt Count Lymph % (Auto) [place] % (Auto) Lymph # [place] # Seg Neutrophils % Seg Neuts % (Manual) Lymphocytes % (Manual) Monocytes % (Manual) Nucleated RBC % Seg Neutrophils # Seg Neutrophils # Man Lymphocytes # (Manual) PT INR POC ABG pH POC ABG pCO2 POC ABG pO2 Sodium Potassium Chloride Carbon Dioxide BUN Creatinine Glucose POC Glucose 141 H 156 H Calcium Phosphorus TIBC Ferritin AST ALT Alkaline Phosphatase Lactate Dehydrogenase Total Creatine Kinase Troponin T C-Reactive Protein Total Protein Albumin HDL Cholesterol Vitamin B12 1296 H Urine Creatinine Ur Creatinine 24 Hour Urine Total Protein Salicylates Acetaminophen 10/19/18 10/19/18 10/20/18 15:53 22:51 05:07 RBC 3.23 L Hgb 10.0 L Hct MCV RDW 15.7 H Plt Count 111 L D Lymph % (Auto) [place] % (Auto) 8.0 H Lymph # [place] # Seg Neutrophils % Seg Neuts % (Manual) Lymphocytes % (Manual) Monocytes % (Manual) Nucleated RBC % Seg Neutrophils # Seg Neutrophils # Man Lymphocytes # (Manual) PT INR POC ABG pH POC ABG pCO2 POC ABG pO2 Sodium Potassium Chloride Carbon Dioxide BUN Creatinine Glucose POC Glucose 193 H 228 H Calcium Phosphorus TIBC Ferritin AST ALT Alkaline Phosphatase Lactate Dehydrogenase Total Creatine Kinase Troponin T C-Reactive Protein Total Protein Albumin HDL Cholesterol Vitamin B12 Urine Creatinine Ur Creatinine 24 Hour Urine Total Protein Salicylates Acetaminophen 10/20/18 10/20/18 10/20/18 05:07 10:44 13:45 RBC Hgb Hct MCV RDW Plt Count Lymph % (Auto) [place] % (Auto) Lymph # [place] # Seg Neutrophils % Seg Neuts % (Manual) Lymphocytes % (Manual) Monocytes % (Manual) Nucleated RBC % Seg Neutrophils # Seg Neutrophils # Man Lymphocytes # (Manual) PT INR POC ABG pH POC ABG pCO2 POC ABG pO2 Sodium Potassium Chloride Carbon Dioxide BUN 32 H Creatinine 3.2 H Glucose 177 H POC Glucose 160 H Calcium 8.0 L Phosphorus TIBC Ferritin AST 305 H ALT 728 H Alkaline Phosphatase 402 H Lactate Dehydrogenase Total Creatine Kinase Troponin T C-Reactive Protein Total Protein 6.0 L Albumin 2.9 L HDL Cholesterol Vitamin B12 Urine Creatinine 157.6 H Ur Creatinine 24 Hour Urine Total Protein Salicylates Acetaminophen 10/20/18 10/20/18 10/21/18 17:19 20:44 05:57 RBC 3.16 L Hgb 10.0 L Hct 29.9 L MCV RDW 15.4 H Plt Count 125 L Lymph % (Auto) [place] % (Auto) 9.6 H Lymph # [place] # Seg Neutrophils % 71.3 H Seg Neuts % (Manual) Lymphocytes % (Manual) Monocytes % (Manual) Nucleated RBC % Seg Neutrophils # Seg Neutrophils # Man Lymphocytes # (Manual) PT INR POC ABG pH POC ABG pCO2 POC ABG pO2 Sodium Potassium Chloride Carbon Dioxide BUN Creatinine Glucose POC Glucose 143 H 234 H Calcium Phosphorus TIBC Ferritin AST ALT Alkaline Phosphatase Lactate Dehydrogenase Total Creatine Kinase Troponin T C-Reactive Protein Total Protein Albumin HDL Cholesterol Vitamin B12 Urine Creatinine Ur Creatinine 24 Hour Urine Total Protein Salicylates Acetaminophen 10/21/18 10/21/18 10/21/18 05:57 07:55 12:05 RBC Hgb Hct MCV RDW Plt Count Lymph % (Auto) [place] % (Auto) Lymph # [place] # Seg Neutrophils % Seg Neuts % (Manual) Lymphocytes % (Manual) Monocytes % (Manual) Nucleated RBC % Seg Neutrophils # Seg Neutrophils # Man Lymphocytes # (Manual) PT INR POC ABG pH POC ABG pCO2 POC ABG pO2 Sodium Potassium Chloride Carbon Dioxide BUN 47 H Creatinine 4.9 H D Glucose 229 H POC Glucose 239 H 446 H Calcium 8.0 L Phosphorus TIBC Ferritin AST ALT Alkaline Phosphatase Lactate Dehydrogenase Total Creatine Kinase Troponin T C-Reactive Protein Total Protein Albumin HDL Cholesterol Vitamin B12 Urine Creatinine Ur Creatinine 24 Hour Urine Total Protein Salicylates Acetaminophen 10/21/18 10/21/18 10/22/18 15:40 18:19 00:45 RBC Hgb Hct MCV RDW Plt Count Lymph % (Auto) [place] % (Auto) Lymph # [place] # Seg Neutrophils % Seg Neuts % (Manual) Lymphocytes % (Manual) Monocytes % (Manual) Nucleated RBC % Seg Neutrophils # Seg Neutrophils # Man Lymphocytes # (Manual) PT INR POC ABG pH POC ABG pCO2 POC ABG pO2 Sodium Potassium Chloride Carbon Dioxide BUN Creatinine Glucose POC Glucose 263 H 179 H Calcium Phosphorus TIBC Ferritin AST ALT Alkaline Phosphatase Lactate Dehydrogenase Total Creatine Kinase Troponin T C-Reactive Protein Total Protein Albumin HDL Cholesterol Vitamin B12 Urine Creatinine 196.7 H Ur Creatinine 24 Hour 0.1 L Urine Total Protein Salicylates Acetaminophen 10/22/18 10/22/18 10/22/18 06:24 06:24 12:47 RBC 3.17 L Hgb 9.9 L Hct MCV RDW 15.7 H Plt Count 134 L Lymph % (Auto) [place] % (Auto) Lymph # [place] # Seg Neutrophils % Seg Neuts % (Manual) 78.0 H Lymphocytes % (Manual) Monocytes % (Manual) Nucleated RBC % Seg Neutrophils # Seg Neutrophils # Man 8.3 H Lymphocytes # (Manual) PT INR POC ABG pH POC ABG pCO2 POC ABG pO2 Sodium Potassium Chloride Carbon Dioxide BUN 33 H Creatinine 3.9 H Glucose 171 H POC Glucose 210 H Calcium Phosphorus TIBC Ferritin AST ALT Alkaline Phosphatase Lactate Dehydrogenase Total Creatine Kinase Troponin T C-Reactive Protein Total Protein Albumin HDL Cholesterol Vitamin B12 Urine Creatinine Ur Creatinine 24 Hour Urine Total Protein Salicylates Acetaminophen 10/22/18 10/22/18 10/23/18 18:33 21:58 05:24 RBC 3.49 L Hgb Hct MCV RDW 16.7 H Plt Count Lymph % (Auto) [place] % (Auto) Lymph # [place] # Seg Neutrophils % Seg Neuts % (Manual) 88.0 H Lymphocytes % (Manual) 6.0 L Monocytes % (Manual) Nucleated RBC % Seg Neutrophils # Seg Neutrophils # Man 9.3 H Lymphocytes # (Manual) 0.6 L PT INR POC ABG pH POC ABG pCO2 POC ABG pO2 Sodium Potassium Chloride Carbon Dioxide BUN Creatinine Glucose POC Glucose 176 H 230 H Calcium Phosphorus TIBC Ferritin AST ALT Alkaline Phosphatase Lactate Dehydrogenase Total Creatine Kinase Troponin T C-Reactive Protein Total Protein Albumin HDL Cholesterol Vitamin B12 Urine Creatinine Ur Creatinine 24 Hour Urine Total Protein Salicylates Acetaminophen 10/23/18 10/23/18 10/23/18 05:24 07:31 11:51 RBC Hgb Hct MCV RDW Plt Count Lymph % (Auto) [place] % (Auto) Lymph # [place] # Seg Neutrophils % Seg Neuts % (Manual) Lymphocytes % (Manual) Monocytes % (Manual) Nucleated RBC % Seg Neutrophils # Seg Neutrophils # Man Lymphocytes # (Manual) PT INR POC ABG pH 7.346 L POC ABG pCO2 POC ABG pO2 116 H Sodium Potassium Chloride Carbon Dioxide BUN 49 H Creatinine 5.0 H Glucose 211 H POC Glucose 137 H Calcium Phosphorus 5.30 H D TIBC Ferritin AST ALT Alkaline Phosphatase Lactate Dehydrogenase Total Creatine Kinase Troponin T C-Reactive Protein Total Protein Albumin HDL Cholesterol Vitamin B12 Urine Creatinine Ur Creatinine 24 Hour Urine Total Protein Salicylates Acetaminophen 10/23/18 10/23/18 10/23/18 14:59 18:29 20:51 RBC Hgb Hct MCV RDW Plt Count Lymph % (Auto) [place] % (Auto) Lymph # [place] # Seg Neutrophils % Seg Neuts % (Manual) Lymphocytes % (Manual) Monocytes % (Manual) Nucleated RBC % Seg Neutrophils # Seg Neutrophils # Man Lymphocytes # (Manual) PT INR POC ABG pH POC ABG pCO2 34.3 L POC ABG pO2 Sodium Potassium Chloride Carbon Dioxide BUN Creatinine Glucose POC Glucose 182 H Calcium Phosphorus TIBC Ferritin AST ALT Alkaline Phosphatase Lactate Dehydrogenase Total Creatine Kinase Troponin T C-Reactive Protein 24.10 H Total Protein Albumin HDL Cholesterol Vitamin B12 Urine Creatinine Ur Creatinine 24 Hour Urine Total Protein Salicylates Acetaminophen 10/23/18 10/24/18 10/24/18 23:37 04:50 04:50 RBC 3.13 L Hgb 9.7 L Hct MCV RDW 16.8 H Plt Count 132 L Lymph % (Auto) 8.0 L [place] % (Auto) 10.9 H Lymph # 0.9 L [place] # 1.2 H Seg Neutrophils % 80.6 H Seg Neuts % (Manual) Lymphocytes % (Manual) Monocytes % (Manual) Nucleated RBC % Seg Neutrophils # 8.8 H Seg Neutrophils # Man Lymphocytes # (Manual) PT INR POC ABG pH POC ABG pCO2 POC ABG pO2 Sodium 136 L Potassium Chloride 94.6 L Carbon Dioxide BUN 25 H Creatinine 3.3 H Glucose 214 H POC Glucose 232 H Calcium Phosphorus TIBC Ferritin AST ALT Alkaline Phosphatase Lactate Dehydrogenase Total Creatine Kinase Troponin T C-Reactive Protein Total Protein Albumin HDL Cholesterol Vitamin B12 Urine Creatinine Ur Creatinine 24 Hour Urine Total Protein Salicylates Acetaminophen 10/24/18 10/24/18 10/25/18 07:44 11:52 11:31 RBC Hgb Hct MCV RDW Plt Count Lymph % (Auto) [place] % (Auto) Lymph # [place] # Seg Neutrophils % Seg Neuts % (Manual) Lymphocytes % (Manual) Monocytes % (Manual) Nucleated RBC % Seg Neutrophils # Seg Neutrophils # Man Lymphocytes # (Manual) PT INR POC ABG pH POC ABG pCO2 POC ABG pO2 Sodium Potassium Chloride 94.1 L Carbon Dioxide BUN 42 H Creatinine 4.8 H Glucose 192 H POC Glucose 219 H 290 H Calcium Phosphorus TIBC Ferritin AST ALT Alkaline Phosphatase Lactate Dehydrogenase Total Creatine Kinase Troponin T C-Reactive Protein Total Protein Albumin HDL Cholesterol Vitamin B12 Urine Creatinine Ur Creatinine 24 Hour Urine Total Protein Salicylates Acetaminophen
[2018-10-25] MEDS ORDERED: NACL 0.9% 100 ML IV PRN (14:52)
--- NOTE | 2018-10-25 15:07 | Progress Note ---
Assessment and Plan Acute renal failure on chronic kidney disease stage III/IV AG metabolic acidosis Hyperkalemia Metabolic encephalopathy CVA - s/p HD yesterday, no HD today, HD tomorrow. Eval for need daily. - Creatinine clearance was 3 ml/min - Urine eosinophils were negative - Renal US- negative for obstruction - Renally dose medications - Strict I&O monitoring - Obtain daily weights - Assess dialysis needs daily - Consulted case management for outpatient HD placement to [facility] Subjective Date of service: 10/25/18 Principal diagnosis: Stroke Interval history: On IHD. Objective - Exam Narrative Exam: - General Appearance General appearance: fatigue, other (Lethargic) EENT: ATNC Neck: no JVD, supple Respiratory: Present: Decreased Breath Sounds Cardiology: S1S2 Gastrointestinal: normoactive bowel sounds Integumentary: warm and dry Neurologic: other (Lethargic) Musculoskeletal: other (none) - Vital Signs Vital signs: Vital Signs - 12hr 10/25/18 10/25/18 10/25/18 03:56 03:58 08:00 Temperature 98.4 F Pulse Rate 80 84 Pulse Rate [ From Monitor] Respiratory 16 Rate Blood Pressure 105/70 O2 Sat by Pulse 100 Oximetry 10/25/18 10/25/18 10/25/18 08:10 09:37 10:15 Temperature 98.3 F Pulse Rate 85 Pulse Rate [ 85 From Monitor] Respiratory 18 Rate Blood Pressure 123/74 O2 Sat by Pulse 100 98 Oximetry 10/25/18 13:00 Temperature Pulse Rate 83 Pulse Rate [ From Monitor] Respiratory Rate Blood Pressure O2 Sat by Pulse Oximetry - Lab 10/24/18 04:50 10/25/18 11:31 Most recent lab results Calcium 8.8 mg/dL (8.4-10.2) 10/25/18 11:31 Phosphorus 5.30 mg/dL (2.5-4.5) H D 10/23/18 05:24 Magnesium 1.70 mg/dL (1.7-2.3) 10/20/18 12:22 196.7 mg/dL (0.1-20.0) H 10/21/18 18:19 12 mmol/L 10/17/18 13:34 191 mg/dL (5-11.8) H 10/17/18 13:16 Medications & Allergies - Medications Allergies/Adverse Reactions: Allergies NSAIDS (Non-Steroidal Anti-Inflamma Adverse Reaction (Verified 01/02/17 05:56) Unknown Tetracyclines Adverse Reaction (Verified 09/26/14 12:09) Unknown Home Medications: Home Medications Medication Instructions Recorded Confirmed Last Taken Type Ergocalciferol [Vitamin D2] 50,000 unit PO QWEEK capsule 09/25/16 10/17/18 Unknown Rx Latanoprost 0.005% 1 drop OP QPM 01/02/17 10/17/18 Unknown History Sodium Bicarbonate 325 mg PO DAILY 01/02/17 10/17/18 Unknown History Clopidogrel [Plavix] 75 mg PO DAILY #30 tablet 01/08/17 10/17/18 Unknown Rx Docusate Sodium [Colace CAP] 100 mg PO BID #60 capsule 01/08/17 10/17/18 Unknown Rx Famotidine [Pepcid] 10 mg PO BID #60 tablet 01/08/17 10/17/18 Unknown Rx Gabapentin [Neurontin] 300 mg PO QHS #30 capsule 01/08/17 10/17/18 Unknown Rx Simvastatin [Zocor TAB] 20 mg PO QHS #60 tablet 01/08/17 10/17/18 Unknown Rx glipiZIDE [Glucotrol] 5 mg PO QDDIAB #60 tablet 01/08/17 10/17/18 Unknown Rx hydrALAZINE [Apresoline TAB] 10 mg PO Q8HR #90 tablet 01/08/17 10/17/18 Unknown Rx levETIRAcetam [Keppra TAB] 500 mg PO BID #60 tablet 01/08/17 10/17/18 Unknown Rx Active Medications: Generic Name Dose Route Start Last Admin Trade Name Freq PRN Reason Stop Dose Admin Lipase/Protease/Amylase 1 each 10/25/18 09:[address] 10,500 Unit FEEDTUBE PRN PRN For Clogged Feeding Tube Clopidogrel Bisulfate 75 mg 10/21/18 11:00 10/25/18 09:25 Plavix PO 75 mg QDAY ALLEY Administration Docusate Sodium 100 mg 10/24/18 23:45 10/25/18 10:50 Colace FEEDTUBE 100 mg BID ALLEY Administration Ergocalciferol 50,000 unit 10/24/18 10:00 10/24/18 10:42 Vitamin D2 PO 50,000 unit Sa ALLEY Administration Famotidine 20 mg 10/21/18 10:00 10/25/18 09:25 Pepcid PO 20 mg DAILY ALLEY Administration Gabapentin 300 mg 10/17/18 22:00 10/24/18 23:21 Neurontin PO 300 mg QHS AL[place] Administration Phenylephrine HCl 100 mg/ 100 mls @ 3 mls/hr 10/23/18 11:30 Sodium Chloride IV TITR AL[place] Protocol 50 MCG/MIN Sodium Chloride 100 mls @ 999 mls/hr 10/25/18 14:52 Nacl 0.9% IV LESLEI PRN Hypotension Insulin Human Lispro 0 unit 10/24/18 12:00 10/25/18 12:33 Humalog SUB-Q Not Given Q6HR [facility] [place] Protocol Latanoprost 1 drops 10/17/18 18:00 10/24/18 18:46 Latanoprost 0.005% OU Not Given QPM [facility] [place] Levetiracetam 500 mg 10/21/18 10:00 10/25/18 09:25 Keppra PO 500 mg BID [place] Administration Simple Syrup 15 ml 10/25/18 09:18 Simple Syrup FEEDTUBE PRN PRN Hypoglycemia Simple Syrup 30 ml 10/25/18 09:18 Simple Syrup FEEDTUBE PRN PRN Hypoglycemia Sodium Bicarbonate 325 mg 10/17/18 17:00 10/25/18 09:25 Sodium Bicarbonate PO 325 mg DAILY [place] Administration Sodium Bicarbonate 325 mg 10/25/18 09:18 Sodium Bicarbonate FEEDTUBE PRN PRN For Clogged Feeding Tube
--- NOTE | 2018-10-25 16:58 | Progress Note ---
Assessment and Plan Assessment and plan: Patient is a 63 yo woman with hypertension, dm type 2, gerd, cva, dementia, cad s/p cabg, seizure disorder, OA and CKD 4 (last Cr here was 2.2 on 01/08/2017) who presented to [facility] ED with AMS x 3 days. She was admitted for severe renal failure/uremic encephalopathy with hyperkalemia. Creatinine was found to be 5.6. She underwent emergent Hemodialysis. She was found after being alone in the house for two day a * CT head without contrast IMPRESSION: 1. Recent infarcts in the left MCA and left MOLD YARN SUPERVISOR territories. Although there is no volume loss associated with MOLD YARN SUPERVISOR infarct, the hypoattenuation of the parenchyma and loss of laboy-white differentiation is more conspicuous, suggesting this may be an older infarct. 2. No acute hemorrhage. Report of these findings was called to Dr. Novak in the emergency department at the time of dictation. Subacute CVA, -allergic to aspirin, onplavix, cannot give statin due to elevated LFTs MRA brain shows Abscense of flow in left post cereberal artery, MRA neck neg, carotid doppler neg embolic workup in progress, neurology consult appreciated, EDINSON performed on 10/23, developed hypotension after which she was transferred to the ICU, no clots or PFO seen on EDINSON -Has been requiring pressors, was intubated, now being weaning off pressors Acute metabolic encephalopathy, improving, likely due to TUNDE and cva ARF/CKD 4 vasomotor +ATN: continue HD watch for signs of renal recovery Hyperkalemia: improved with HD Hx of cad, sp cabg. new onset systolic chf -Wide complex tachycardia -med mgt per cardiology, maintain electrolytes with HD to prevent further arrythmias -had normal EF in 2017, now has EF of 15% Glaucoma: continue latanoprost eyedrops Vitamin D deficiency: Continue vitamin D Hyperlipidemia: Continue statins Peripheral neuropathy: Continue gabapentin Seizure disorder: Continue Keppra Hypertension: Continue antihypertensives DVT prophylaxis: heparin and GI prophylaxis dispo; to snf, case dw with her sister Annabelle at [phone] CCT 33 mins History Interval history: Left-sided weakness Review of systems Constitutional: No fevers, no malaise, no joint pains CVS: No chest pain, no orthopnea, no dyspnea on exertion, no pedal edema GI: No abdominal pain, no diarrhea, no vomiting, no constipation Respiratory: no wheezing, no coughing Hospitalist Physical - Physical exam Narrative exam: General.: Appears chronically ill HEENT: Moist mucous membranes, extraocular muscles intact, no lymphadenopathy Neck: supple Cardiac: S1-S2 heard Lungs: clear to auscultation bilaterally Abdomen: soft , nontender, nondistended, bowel sounds positive Extremities: no edema clubbing or cyanosis Skin: no rash or lesions Neurologic: Left-sided weakness Psych: calm, and cooperative - Constitutional Vitals: Temp Pulse Resp BP Pulse Ox 98.3 F 87 16 123/76 95 10/25/18 08:10 10/25/18 16:00 10/25/18 16:00 10/25/18 16:00 10/25/18 16:00 General appearance: Present: no acute distress Results - Labs CBC & Chem 7: 10/24/18 04:50 10/25/18 11:31 Labs: Laboratory Last Values WBC 11.0 K/mm3 (4.5-11.0) 10/24/18 04:50 RBC 3.13 M/mm3 (3.65-5.03) L 10/24/18 04:50 Hgb 9.7 gm/dl (10.1-14.3) L 10/24/18 04:50 Hct 30.4 % (30.3-42.9) 10/24/18 04:50 MCV 97 fl (79-97) 10/24/18 04:50 MCH 31 pg (28-32) 10/24/18 04:50 MCHC 32 % (30-34) 10/24/18 04:50 RDW 16.8 % (13.2-15.2) H 10/24/18 04:50 Plt Count 132 K/mm3 (140-440) L 10/24/18 04:50 Lymph % (Auto) 8.0 % (13.4-35.0) L 10/24/18 04:50 [place] % (Auto) 10.9 % (0.0-7.3) H 10/24/18 04:50 Eos % (Auto) 0.2 % (0.0-4.3) 10/24/18 04:50 Baso % (Auto) 0.3 % (0.0-1.8) 10/24/18 04:50 Lymph # 0.9 K/mm3 (1.2-5.4) L 10/24/18 04:50 [place] # 1.2 K/mm3 (0.0-0.8) H 10/24/18 04:50 Eos # 0.0 K/mm3 (0.0-0.4) 10/24/18 04:50 Baso # 0.0 K/mm3 (0.0-0.1) 10/24/18 04:50 Add Manual Diff Complete 10/23/18 05:24 Total Counted 100 10/23/18 05:24 Seg Neutrophils % 80.6 % (40.0-70.0) H 10/24/18 04:50 Seg Neuts % (Manual) 88.0 % (40.0-70.0) H 10/23/18 05:24 0 % 10/23/18 05:24 6.0 % (13.4-35.0) L 10/23/18 05:24 Reactive Lymphs % (Man) 0 % 10/23/18 05:24 5.0 % (0.0-7.3) 10/23/18 05:24 0 % (0.0-4.3) 10/23/18 05:24 0 % (0.0-1.8) 10/23/18 05:24 1.0 % 10/23/18 05:24 0 % 10/23/18 05:24 0 % 10/23/18 05:24 0 % 10/23/18 05:24 Nucleated RBC % Not Reportable 10/23/18 05:24 Seg Neutrophils # 8.8 K/mm3 (1.8-7.7) H 10/24/18 04:50 Seg Neutrophils # Man 9.3 K/mm3 (1.8-7.7) H 10/23/18 05:24 Band Neutrophils # 0.0 K/mm3 10/23/18 05:24 0.6 K/mm3 (1.2-5.4) L 10/23/18 05:24 Abs React Lymphs (Man) 0.0 K/mm3 10/23/18 05:24 0.5 K/mm3 (0.0-0.8) 10/23/18 05:24 0.0 K/mm3 (0.0-0.4) 10/23/18 05:24 0.0 K/mm3 (0.0-0.1) 10/23/18 05:24 0.1 K/mm3 10/23/18 05:24 0.0 K/mm3 10/23/18 05:24 0.0 K/mm3 10/23/18 05:24 Blast Cells # 0.0 K/mm3 10/23/18 05:24 Pathologist Review 10/19/18 05:20 WBC Morphology Not Reportable 10/23/18 05:24 Hypersegmented Neuts Not Reportable 10/23/18 05:24 Hyposegmented Neuts Not Reportable 10/23/18 05:24 Hypogranular Neuts Not Reportable 10/23/18 05:24 Not Reportable 10/23/18 05:24 Not Reportable 10/23/18 05:24 Not Reportable 10/23/18 05:24 Not Reportable 10/23/18 05:24 Not Reportable 10/23/18 05:24 Not Reportable 10/23/18 05:24 Consistent w auto 10/23/18 05:24 Not Reportable 10/23/18 05:24 Plt Clumps, EDTA Not Reportable 10/23/18 05:24 Not Reportable 10/23/18 05:24 Not Reportable 10/23/18 05:24 Not Reportable 10/23/18 05:24 Plt Morphology Comment Not Reportable 10/23/18 05:24 RBC Morphology Not Reportable 10/23/18 05:24 Dimorphic RBCs Not Reportable 10/23/18 05:24 Not Reportable 10/23/18 05:24 Not Reportable 10/23/18 05:24 Few 10/23/18 05:24 1+ 10/23/18 05:24 Not Reportable 10/23/18 05:24 Not Reportable 10/23/18 05:24 Not Reportable 10/23/18 05:24 Not Reportable 10/23/18 05:24 Not Reportable 10/23/18 05:24 Not Reportable 10/23/18 05:24 Not Reportable 10/23/18 05:24 Few 10/23/18 05:24 Not Reportable 10/23/18 05:24 Not Reportable 10/23/18 05:24 Not Reportable 10/23/18 05:24 Not Reportable 10/23/18 05:24 Not Reportable 10/23/18 05:24 Not Reportable 10/23/18 05:24 Not Reportable 10/23/18 05:24 Acanthocytes (Spur) Not Reportable 10/23/18 05:24 Rouleaux Not Reportable 10/23/18 05:24 Not Reportable 10/23/18 05:24 Not Reportable 10/23/18 05:24 Not Reportable 10/23/18 05:24 Not Reportable 10/23/18 05:24 Hem Pathologist Commnt No 10/23/18 05:24 PT 20.6 Sec. (12.2-14.9) H 10/17/18 10:19 INR 1.81 (0.87-1.13) H 10/17/18 10:19 APTT 35.6 Sec. (24.2-36.6) 10/17/18 10:19 18.7 Sec. (15.1-19.6) 10/17/18 10:19 Heparin Anti-Xa, Unfract Negative (Negative) 10/19/18 08:34 POC ABG pH 7.436 (7.35-7.45) 10/23/18 20:51 POC ABG pCO2 34.3 (35-45) L 10/23/18 20:51 POC ABG pO2 95 (80-105) 10/23/18 20:51 POC ABG HCO3 23.1 (22-26 mml/L) 10/23/18 20:51 POC ABG Total CO2 24 (23-27mmol/L) 10/23/18 20:51 POC ABG O2 Sat 98 10/23/18 20:51 POC ABG Base Excess -1 ((-2) - (+3)mmol/L) 10/23/18 20:51 24 % 10/23/18 20:51 Sodium 138 mmol/L (137-145) 10/25/18 11:31 Potassium 4.4 mmol/L (3.6-5.0) 10/25/18 11:31 Chloride 94.1 mmol/L (98-107) L 10/25/18 11:31 Carbon Dioxide 23 mmol/L (22-30) 10/25/18 11:31 25 mmol/L 10/25/18 11:31 BUN 42 mg/dL (7-17) H 10/25/18 11:31 4.8 mg/dL (0.7-1.2) H 10/25/18 11:31 Estimated GFR 11 ml/min 10/25/18 11:31 9 % 10/25/18 11:31 Glucose 192 mg/dL (65-100) H 10/25/18 11:31 POC Glucose 228 (70-105) H 10/25/18 16:16 Lactic Acid 1.30 mmol/L (0.7-2.0) 10/23/18 14:59 Calcium 8.8 mg/dL (8.4-10.2) 10/25/18 11:31 Phosphorus 5.30 mg/dL (2.5-4.5) H D 10/23/18 05:24 Magnesium 1.70 mg/dL (1.7-2.3) 10/20/18 12:22 Iron 55 ug/dL (37-170) 10/19/18 08:34 TIBC 193 mcg/dL (250-450) L 10/19/18 08:34 2450.0 ng/mL (13.0-400.0) H 10/19/18 08:34 0.50 mg/dL (0.1-1.2) 10/20/18 05:07 AST 305 units/L (5-40) H 10/20/18 05:07 ALT 728 units/L (7-56) H 10/20/18 05:07 402 units/L (35-129) H 10/20/18 05:07 44.0 umol/L (25-60) 10/17/18 15:43 892 units/L (91-180) H 10/19/18 08:34 3216 units/L (30-135) H 10/17/18 15:15 4.720 ng/mL (0.00-0.029) H* 10/17/18 Unknown 24.10 mg/dL (0.00-1.30) H 10/23/18 14:59 6.0 g/dL (6.3-8.2) L 10/20/18 05:07 2.9 g/dL (3.9-5) L 10/20/18 05:07 0.9 % 10/20/18 05:07 Triglycerides 102 mg/dL (2-149) 10/17/18 Unknown Cholesterol 198 mg/dL (50-199) 10/17/18 Unknown 116 mg/dL (50-130) 10/17/18 Unknown 88 mg/dL (40-59) H 10/17/18 Unknown 2.25 % 10/17/18 Unknown Vitamin B12 1296 pg/mL (211-911) H 10/19/18 08:34 8.42 ng/mL (7.3-26.0) 10/19/18 08:34 TSH 1.030 mlU/mL (0.270-4.200) 10/17/18 Unknown Free T4 1.26 ng/dL (0.76-1.46) 10/17/18 Unknown Yellow (Yellow) 10/17/18 11:25 Slightly-cloudy (Clear) 10/17/18 11:25 5.0 (5.0-7.0) 10/17/18 11:25 Ur Specific [place] 1.019 (1.003-1.030) 10/17/18 11:25 100 mg/dl mg/dL (Negative) 10/17/18 11:25 150 mg/dL (Negative) 10/17/18 11:25 Tr mg/dL (Negative) 10/17/18 11:25 Sm (Negative) 10/17/18 11:25 Neg (Negative) 10/17/18 11:25 Neg (Negative) 10/17/18 11:25 < 2.0 mg/dL (<2.0) 10/17/18 11:25 Ur Leukocyte Esterase Tr (Negative) 10/17/18 11:25 3.0 /HPF (0.0-6.0) 10/17/18 11:25 2.0 /HPF (0.0-6.0) 10/17/18 11:25 Few /HPF 10/17/18 11:25 None seen (None Seen) 10/17/18 13:16 60 ml 10/21/18 18:19 196.7 mg/dL (0.1-20.0) H 10/21/18 18:19 Ur Creatinine 24 Hour 0.1 (0.8-2.8) L 10/21/18 18:19 Height (in) 62.0 inches 10/20/18 13:45 Weight (lb) 126.5 lbs 10/20/18 13:45 3 10/20/18 13:45 Protein/Creatinin Ratio 0.69 10/17/18 13:16 12 mmol/L 10/17/18 13:34 191 mg/dL (5-11.8) H 10/17/18 13:16 Salicylates < 0.3 mg/dL (2.8-20.0) L 10/17/18 Unknown Acetaminophen < 5.0 ug/mL (10.0-30.0) L 10/17/18 Unknown Plasma/Serum Alcohol < 0.01 % (0-0.07) 10/17/18 Unknown Immunofix Electrophor see below 10/20/18 05:07 Heparin-induced Plt Ab Negative (Negative) 10/19/18 08:34 UF Heparin High Dose 0 % Release 10/19/18 08:34 KAILYN UFH Low Dose 0.1 0 % Release 10/19/18 08:34 KAILYN UFH Low Dose 0.5 0 % Release 10/19/18 08:34 Hepatitis A IgM Ab Non-reactive (NonReactive) 10/17/18 15:15 Hep Bs Antigen Non-reactive (Negative) 10/17/18 15:15 Hep B Core IgM Ab Non-reactive (NonReactive) 10/17/18 15:15 Non-reactive (NonReactive) 10/17/18 15:15 Rare 10/17/18 15:43 Flexitest 1 10/20/18 10:53 Active Medications - Current Medications Current Medications: Generic Name Dose Route Start Last Admin Trade Name Freq PRN Reason Stop Dose Admin Lipase/Protease/Amylase 1 each 10/25/18 09:[address] 10,500 Unit FEEDTUBE PRN PRN For Clogged Feeding Tube Clopidogrel Bisulfate 75 mg 10/21/18 11:00 10/25/18 09:25 Plavix PO 75 mg QDAY ALLEY Administration Docusate Sodium 100 mg 10/24/18 23:45 10/25/18 10:50 Colace FEEDTUBE 100 mg BID ALLEY Administration Ergocalciferol 50,000 unit 10/24/18 10:00 10/24/18 10:42 Vitamin D2 PO 50,000 unit Sa ALLEY Administration Famotidine 20 mg 10/21/18 10:00 10/25/18 09:25 Pepcid PO 20 mg DAILY ALLEY Administration Gabapentin 300 mg 10/17/18 22:00 10/24/18 23:21 Neurontin PO 300 mg QHS ALLEY Administration Phenylephrine HCl 100 mg/ 100 mls @ 3 mls/hr 10/23/18 11:30 Sodium Chloride IV TITR ALLEY Protocol 50 MCG/MIN Sodium Chloride 100 mls @ 999 mls/hr 10/25/18 14:52 Nacl 0.9% IV LESLIE PRN Hypotension Insulin Human Lispro 0 unit 10/24/18 12:00 10/25/18 12:33 Humalog SUB-Q Not Given Q6HR ALLEY Protocol Latanoprost 1 drops 10/17/18 18:00 10/24/18 18:46 Latanoprost 0.005% OU Not Given QPM ALLEY Levetiracetam 500 mg 10/21/18 10:00 10/25/18 09:25 Keppra PO 500 mg BID ALLEY Administration Simple Syrup 15 ml 10/25/18 09:18 Simple Syrup FEEDTUBE PRN PRN Hypoglycemia Simple Syrup 30 ml 10/25/18 09:18 Simple Syrup FEEDTUBE PRN PRN Hypoglycemia Sodium Bicarbonate 325 mg 10/17/18 17:00 10/25/18 09:25 Sodium Bicarbonate PO 325 mg DAILY ALLEY Administration Sodium Bicarbonate 325 mg 10/25/18 09:18 Sodium Bicarbonate FEEDTUBE PRN PRN For Clogged Feeding Tube Nutrition/Malnutrition Assess - Dietary Evaluation Nutrition/Malnutrition Findings: Nutrition Notes Start: 10/18/18 14:28 Freq: Status: Active Protocol: Document 10/24/18 10:16 LP (Rec: 10/24/18 10:32 LP [id number]) Nutrition Notes Initial or Follow up Reassessment Current Diagnosis Acute Kidney Injury,CKD(stage I-IV),Coronary Artery Disease, Diabetes,Hypertension,Heart Failure,Stroke,Hyperlipidemia Other Pertinent Diagnosis Skin tears on foot and leg Current Diet NPO Labs/Tests Na 136 BUN 25 Cr 3.3 BG 214 Pertinent Medications Reviewed Height 5 ft 2 in Weight 57.6 kg [place] Body Weight (kg) 50.00 BMI 23.2 Weight change and time frame Fluid fluctuating due to being on HD with renal issues Subjective/Other Information Consult for TF. Pt noted with some non pitting edema in periorbital region. Dobhoff placed Burn Absent Trauma Absent Minimum of two criteria Yes Body Fat Depletion Mild depletion (non-severe) Muscle Mass Mild Depletion (non-severe) Fluid Accumulation Mild (non-severe) Reduced Decision Support Manager Strength Measurably Reduced (severe) #2 Nutrition Diagnosis Malnutrition Etiology Chronic illness As Evidenced by Signs and Symptoms Pt not eating well and now has dobhoff placed for TF #1 Nutrition Diagnosis Inadequate oral intake As Evidenced by Signs and Symptoms Consult for TF Diagnosis Progress(for reassessment Worsened documentation) Is patient on ventilator? No Is Patient Ambulatory and/or Out of Bed No REE-([facility]-confined to bed) [phone] Calculation Used for Recommendations [facility] Additional Notes Protein Needs: 69-86g(1.2-1.5g /kg) Fluid Needs: 1 ml/kcal Nutrition Intervention Change Diet Order: TF Nutrition Support: Nepro at 30ml/hr Flush with 120ml q4h Kcal 1,296 Protein (gm) 58 Fluid (mL) 523 Add Supplement/Snack (indicate name/kcal D/C /protein ) Goal #1 Meet at least 80% of kcal and protein needs via TF Anticipated Discharge Needs: Unable to determine at this time Follow-Up By: 10/26/18 Additional Comments Follow for TF start/tolerance, renal labs
[2018-10-25] MEDS: LATANOPROST 0.005% OU SCH (18:24)
[2018-10-25] MEDS: NEURONTIN PO SCH (22:19)
[2018-10-26] MEDS: HumaLOG SUB-Q SCH ×4 (00:24→17:06)
[2018-10-26 01:05] LABS: Albumin 2.7 g/dL (3.8-4.8); Gamma Globulin 0.8 g/dL (0.8-1.7)
[2018-10-26 06:32] LABS: Basophils % (Auto) 0.3 % (0.0-1.8); Eosinophils % (Auto) 0.2 % (0.0-4.3); Hematocrit 32.3 % (30.3-42.9); Hemoglobin 10.2 gm/dl (10.1-14.3); Lymphocytes % (Auto) 8.4 % (13.4-35.0); Mean Corpuscular HGB Conc 32 % (30-34); Mean Corpuscular Volume 97 fl (79-97); Monocytes # (Auto) 1.3 K/mm3 (0.0-0.8); Monocytes % (Auto) 10.7 % (0.0-7.3); Platelet Count 211 K/mm3 (140-440); Red Blood Count 3.35 M/mm3 (3.65-5.03); Red Cell Distribution Width 16.4 % (13.2-15.2)
[2018-10-26 06:59] LABS: Calcium 8.6 mg/dL (8.4-10.2)
--- NOTE | 2018-10-26 07:39 | Hem/Onc Progress Note ---
Assessment and Plan 1. Elevated LDH. Smear has been evaluated. Heparin-induced thrombocytopenia has been ordered. HIT NEGATIVE 2. Renal impairment. Nephrology team following the patient. SPEP normal 3. deficiency investigation. The smear evaluation is being done. The platelet counts at admission were normal and then have gone down. The cause of thrombocytopenia at this time is not clear. Her mentation is also not perfect. I will follow the trend of the counts. b12 - folate - iron ferritin normal 4. Cerebrovascular accident?. neurology following. 5. Electrolyte imbalance. 6. Vitamin D deficiency. 8. History of diabetes. 9. History of hypertension. 10. History of seizure. 11. Hyperlipidemia. pt plt have improved - smear - rare schistocytes neurology following - cva low EF anti plt plan for statring later EDINSON was suggested SPEP - no Monoclonal band ADAMTS 13 - normal level Stroke: - Likely cardio-embolic, as b/l infarcts seen on MRI. - MRA head/neck did not reveal any significant stenosis - Echo: EF 10-15%, bubble study negative, LA moderately dilated - EDINSON did not reveal any evidence of intracardiac thrombi. 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 [id number] 90% - less likely TTP plt rare schistocytes HIT neg SPEP no monoclonal band - Patient Problems (1) Thrombocytopenia Current Visit: Yes Status: Acute Subjective Date of service: 10/26/18 Principal diagnosis: low plt Interval history: not communicative Objective - Exam Narrative Exam: Pain Not evaluable General appearance no acute distress Performance status -completely disabled Eyes EOM not able to evaluate ENT no nose/ear bleed LNs cervical not palpable Neck Not evaluable Respiratory Normal Breath sounds - CTA anteriorly CVS S1 S2 + Extremities normal temperature/ no edema General GI Soft non tender Rectal deferred Female - deferred Skin warm Musculoskeletal generalized weakness Neurologically not responsive - Constitutional Vitals: Last Vital Signs Temp 101.0 F H 10/26/18 04:38 Pulse 89 10/26/18 04:37 Resp 16 10/26/18 05:08 BP 98/66 10/26/18 04:37 Pulse Ox 98 10/26/18 04:37 - Labs Lab Results: Laboratory Results - last 24 hr 10/20/18 10/24/18 10/24/18 05:07 04:50 18:25 WBC 11.0 RBC 3.13 L Hgb 9.7 L Hct 30.4 MCV 97 MCH 31 MCHC 32 RDW 16.8 H Plt Count 132 L Lymph % (Auto) 8.0 L [place] % (Auto) 10.9 H Eos % (Auto) 0.2 Baso % (Auto) 0.3 Lymph # 0.9 L [place] # 1.2 H Eos # 0.0 Baso # 0.0 Seg Neutrophils % 80.6 H Seg Neutrophils # 8.8 H Sodium Potassium Chloride Carbon Dioxide Anion Gap BUN Creatinine Estimated GFR BUN/Creatinine Ratio Glucose POC Glucose 113 H Calcium Total Bilirubin AST ALT Alkaline Phosphatase Lactate Dehydrogenase Serum Total Protein 5.5 L Total Protein Albumin 2.7 L Albumin/Globulin Ratio Ftgbj-0-Pxfyaplor 0.4 H Mhfkj-6-Rbzjkgxbh 0.9 Beta Globulins 0.3 Gamma Globulins 0.8 Abnorm Protein Band 1 see below PEP Interpretation see below H 10/24/18 10/25/18 10/25/18 21:12 06:29 11:31 WBC RBC Hgb Hct MCV MCH MCHC RDW Plt Count Lymph % (Auto) [place] % (Auto) Eos % (Auto) Baso % (Auto) Lymph # [place] # Eos # Baso # Seg Neutrophils % Seg Neutrophils # Sodium 138 Potassium 4.4 Chloride 94.1 L Carbon Dioxide 23 Anion Gap 25 BUN 42 H Creatinine 4.8 H Estimated GFR 11 BUN/Creatinine Ratio 9 Glucose 192 H POC Glucose 123 H 208 H Calcium 8.8 Total Bilirubin AST ALT Alkaline Phosphatase Lactate Dehydrogenase Serum Total Protein Total Protein Albumin Albumin/Globulin Ratio Wcwwm-6-Sjfexbkqs Zyclk-8-Kyvwjzqfz Beta Globulins Gamma Globulins Abnorm Protein Band 1 PEP Interpretation 10/25/18 10/25/18 10/26/18 12:28 16:16 06:13 WBC 12.3 H RBC 3.35 L Hgb 10.2 Hct 32.3 MCV 97 MCH 31 MCHC 32 RDW 16.4 H Plt Count 211 Lymph % (Auto) 8.4 L [place] % (Auto) 10.7 H Eos % (Auto) 0.2 Baso % (Auto) 0.3 Lymph # 1.0 L [place] # 1.3 H Eos # 0.0 Baso # 0.0 Seg Neutrophils % 80.4 H Seg Neutrophils # 9.9 H Sodium Potassium Chloride Carbon Dioxide Anion Gap BUN Creatinine Estimated GFR BUN/Creatinine Ratio Glucose POC Glucose 225 H 228 H Calcium Total Bilirubin AST ALT Alkaline Phosphatase Lactate Dehydrogenase Serum Total Protein Total Protein Albumin Albumin/Globulin Ratio Hahos-9-Sxhdvwltm Eatln-2-Opvdltrmu Beta Globulins Gamma Globulins Abnorm Protein Band 1 PEP Interpretation 10/26/18 06:13 WBC RBC Hgb Hct MCV MCH MCHC RDW Plt Count Lymph % (Auto) [place] % (Auto) Eos % (Auto) Baso % (Auto) Lymph # [place] # Eos # Baso # Seg Neutrophils % Seg Neutrophils # Sodium 136 L Potassium 4.7 Chloride 91.7 L Carbon Dioxide 24 Anion Gap 25 BUN 54 H Creatinine 6.0 H Estimated GFR 9 BUN/Creatinine Ratio 9 Glucose 247 H POC Glucose Calcium 8.6 Total Bilirubin 0.50 AST 36 ALT 18 Alkaline Phosphatase 251 H Lactate Dehydrogenase 458 H Serum Total Protein Total Protein 5.9 L Albumin 3.0 L Albumin/Globulin Ratio 1.0 Jakxw-2-Aibpgvfpp Sestc-2-Zghbvvlru Beta Globulins Gamma Globulins Abnorm Protein Band 1 PEP Interpretation Medications & Allergies - Medications Allergies/Adverse Reactions: Allergies NSAIDS (Non-Steroidal Anti-Inflamma Adverse Reaction (Verified 01/02/17 05:56) Unknown Tetracyclines Adverse Reaction (Verified 09/26/14 12:09) Unknown Home Medications: Home Medications Medication Instructions Recorded Confirmed Last Taken Type Ergocalciferol [Vitamin D2] 50,000 unit PO QWEEK capsule 09/25/16 10/17/18 Unknown Rx Latanoprost 0.005% 1 drop OP QPM 01/02/17 10/17/18 Unknown History Sodium Bicarbonate 325 mg PO DAILY 01/02/17 10/17/18 Unknown History Clopidogrel [Plavix] 75 mg PO DAILY #30 tablet 01/08/17 10/17/18 Unknown Rx Docusate Sodium [Colace CAP] 100 mg PO BID #60 capsule 01/08/17 10/17/18 Unknown Rx Famotidine [Pepcid] 10 mg PO BID #60 tablet 01/08/17 10/17/18 Unknown Rx Gabapentin [Neurontin] 300 mg PO QHS #30 capsule 01/08/17 10/17/18 Unknown Rx Simvastatin [Zocor TAB] 20 mg PO QHS #60 tablet 01/08/17 10/17/18 Unknown Rx glipiZIDE [Glucotrol] 5 mg PO QDDIAB #60 tablet 01/08/17 10/17/18 Unknown Rx hydrALAZINE [Apresoline TAB] 10 mg PO Q8HR #90 tablet 01/08/17 10/17/18 Unknown Rx levETIRAcetam [Keppra TAB] 500 mg PO BID #60 tablet 01/08/17 10/17/18 Unknown Rx Active Medications: Generic Name Dose Route Start Last Admin Trade Name Freq PRN Reason Stop Dose Admin Lipase/Protease/Amylase 1 each 10/25/18 09:18 Pancreaze 10,500 Unit FEEDTUBE PRN PRN For Clogged Feeding Tube Clopidogrel Bisulfate 75 mg 10/21/18 11:00 10/25/18 09:25 Plavix PO 75 mg QDAY ALLEY Administration Docusate Sodium 100 mg 10/24/18 23:45 10/25/18 22:19 Colace FEEDTUBE 100 mg BID ALLEY Administration Ergocalciferol 50,000 unit 10/24/18 10:00 10/24/18 10:42 Vitamin D2 PO 50,000 unit Sa ALLEY Administration Famotidine 20 mg 10/21/18 10:00 10/25/18 09:25 Pepcid PO 20 mg DAILY ALLEY Administration Gabapentin 300 mg 10/17/18 22:00 10/25/18 22:19 Neurontin PO 300 mg QHS ALLEY Administration Phenylephrine HCl 100 mg/ 100 mls @ 3 mls/hr 10/23/18 11:30 Sodium Chloride IV TITR ALLEY Protocol 50 MCG/MIN Sodium Chloride 100 mls @ 999 mls/hr 10/25/18 14:52 Nacl 0.9% IV LESLIE PRN Hypotension Insulin Human Lispro 0 unit 10/24/18 12:00 10/26/18 06:02 Humalog SUB-Q 3 unit Q6HR ALLEY Administration Protocol Latanoprost 1 drops 10/17/18 18:00 10/25/18 18:24 Latanoprost 0.005% OU 1 drops QPM ALLEY Administration Levetiracetam 500 mg 10/21/18 10:00 10/25/18 22:19 Keppra PO 500 mg BID ALLEY Administration Simple Syrup 15 ml 10/25/18 09:18 Simple Syrup FEEDTUBE PRN PRN Hypoglycemia Simple Syrup 30 ml 10/25/18 09:18 Simple Syrup FEEDTUBE PRN PRN Hypoglycemia Sodium Bicarbonate 325 mg 10/17/18 17:00 10/25/18 09:25 Sodium Bicarbonate PO 325 mg DAILY ALLEY Administration Sodium Bicarbonate 325 mg 10/25/18 09:18 Sodium Bicarbonate FEEDTUBE PRN PRN For Clogged Feeding Tube
--- NOTE | 2018-10-26 11:32 | Progress Note ---
Assessment and Plan Acute renal failure on chronic kidney disease stage III/IV AG metabolic acidosis Hyperkalemia Metabolic encephalopathy CVA - Renal function reviewed. Serum creatinine 6.0 today, GFR 9ml/min - Hemodialysis today for clearance and gentle UF via right IJ perm-catheter - Urine eosinophils were negative - Renal US- negative for obstruction - Renally dose medications - Strict I&O monitoring - Obtain daily weights - Assess dialysis needs daily - Case management onboard for outpatient HD placement to [facility] - Planning to be discharged to [facility] Subjective Date of service: 10/26/18 Principal diagnosis: low plt Interval history: Patient seen in dialysis unit. Does not communicate. Eyes closed. Objective - Vital Signs Vital signs: Vital Signs - 12hr 10/25/18 10/26/18 10/26/18 23:37 04:37 04:38 Temperature 97.6 F 101.0 F H Pulse Rate 89 89 Respiratory 18 20 Rate Blood Pressure 98/66 Blood Pressure 106/66 [Left] O2 Sat by Pulse 99 98 Oximetry 10/26/18 10/26/18 10/26/18 05:08 09:30 09:40 Temperature 97.2 F L Pulse Rate 82 82 Respiratory 16 18 Rate Blood Pressure 105/61 102/69 Blood Pressure [Left] O2 Sat by Pulse Oximetry 10/26/18 10/26/18 10/26/18 09:45 10:00 10:15 Temperature Pulse Rate 83 83 86 Respiratory Rate Blood Pressure 104/69 100/61 110/71 Blood Pressure [Left] O2 Sat by Pulse Oximetry 10/26/18 10/26/18 10:30 10:45 Temperature Pulse Rate 84 83 Respiratory Rate Blood Pressure 112/71 124/76 Blood Pressure [Left] O2 Sat by Pulse Oximetry - General Appearance General appearance: other (Does not communicate) EENT: ATNC Neck: no JVD, supple Respiratory: Present: Decreased Breath Sounds Cardiology: S1S2 Gastrointestinal: normoactive bowel sounds Integumentary: warm and dry Neurologic: other (Keeps eyes closed, does not follow commands) Musculoskeletal: other (No edema) - Lab 10/26/18 06:13 10/26/18 06:13 Most recent lab results Calcium 8.6 mg/dL (8.4-10.2) 10/26/18 06:13 Phosphorus 5.30 mg/dL (2.5-4.5) H D 10/23/18 05:24 Magnesium 1.70 mg/dL (1.7-2.3) 10/20/18 12:22 196.7 mg/dL (0.1-20.0) H 10/21/18 18:19 12 mmol/L 10/17/18 13:34 191 mg/dL (5-11.8) H 10/17/18 13:16 Medications & Allergies - Medications Allergies/Adverse Reactions: Allergies NSAIDS (Non-Steroidal Anti-Inflamma Adverse Reaction (Verified 01/02/17 05:56) Unknown Tetracyclines Adverse Reaction (Verified 09/26/14 12:09) Unknown Home Medications: Home Medications Medication Instructions Recorded Confirmed Last Taken Type Ergocalciferol [Vitamin D2] 50,000 unit PO QWEEK capsule 09/25/16 10/17/18 Unknown Rx Latanoprost 0.005% 1 drop OP QPM 01/02/17 10/17/18 Unknown History Sodium Bicarbonate 325 mg PO DAILY 01/02/17 10/17/18 Unknown History Clopidogrel [Plavix] 75 mg PO DAILY #30 tablet 01/08/17 10/17/18 Unknown Rx Docusate Sodium [Colace CAP] 100 mg PO BID #60 capsule 01/08/17 10/17/18 Unknown Rx Famotidine [Pepcid] 10 mg PO BID #60 tablet 01/08/17 10/17/18 Unknown Rx Gabapentin [Neurontin] 300 mg PO QHS #30 capsule 01/08/17 10/17/18 Unknown Rx Simvastatin [Zocor TAB] 20 mg PO QHS #60 tablet 01/08/17 10/17/18 Unknown Rx glipiZIDE [Glucotrol] 5 mg PO QDDIAB #60 tablet 01/08/17 10/17/18 Unknown Rx hydrALAZINE [Apresoline TAB] 10 mg PO Q8HR #90 tablet 01/08/17 10/17/18 Unknown Rx levETIRAcetam [Keppra TAB] 500 mg PO BID #60 tablet 01/08/17 10/17/18 Unknown Rx Active Medications: Generic Name Dose Route Start Last Admin Trade Name Freq PRN Reason Stop Dose Admin Lipase/Protease/Amylase 1 each 10/25/18 09:18 Pancreakila Bruner 10,500 Unit FEEDTUBE PRN PRN For Clogged Feeding Tube Clopidogrel Bisulfate 75 mg 10/21/18 11:00 10/25/18 09:25 Plavix PO 75 mg QDAY ALLEY Administration Docusate Sodium 100 mg 10/24/18 23:45 10/25/18 22:19 Colace FEEDTUBE 100 mg BID ALLEY Administration Ergocalciferol 50,000 unit 10/24/18 10:00 10/24/18 10:42 Vitamin D2 PO 50,000 unit Sa ALLEY Administration Famotidine 20 mg 10/21/18 10:00 10/25/18 09:25 Pepcid PO 20 mg DAILY ALLEY Administration Gabapentin 300 mg 10/17/18 22:00 10/25/18 22:19 Neurontin PO 300 mg QHS ALLEY Administration Phenylephrine HCl 100 mg/ 100 mls @ 3 mls/hr 10/23/18 11:30 Sodium Chloride IV TITR ALLEY Protocol 50 MCG/MIN Sodium Chloride 100 mls @ 999 mls/hr 10/25/18 14:52 Nacl 0.9% IV LESLIE PRN Hypotension Insulin Human Lispro 0 unit 10/24/18 12:00 10/26/18 06:02 Humalog SUB-Q 3 unit Q6HR ALLEY Administration Protocol Latanoprost 1 drops 10/17/18 18:00 10/25/18 18:24 Latanoprost 0.005% OU 1 drops QPM ALLEY Administration Levetiracetam 500 mg 10/21/18 10:00 10/25/18 22:19 Keppra PO 500 mg BID ALLEY Administration Simple Syrup 15 ml 10/25/18 09:18 Simple Syrup FEEDTUBE PRN PRN Hypoglycemia Simple Syrup 30 ml 10/25/18 09:18 Simple Syrup FEEDTUBE PRN PRN Hypoglycemia Sodium Bicarbonate 325 mg 10/17/18 17:00 10/25/18 09:25 Sodium Bicarbonate PO 325 mg DAILY ALLEY Administration Sodium Bicarbonate 325 mg 10/25/18 09:18 Sodium Bicarbonate FEEDTUBE PRN PRN For Clogged Feeding Tube
--- NOTE | 2018-10-26 12:12 | Progress Note ---
Assessment and Plan Assessment and plan: Patient is a 63 yo woman with hypertension, dm type 2, gerd, cva, dementia, cad s/p cabg, seizure disorder, OA and CKD 4 (last Cr here was 2.2 on 01/08/2017) who presented to [facility] ED with AMS x 3 days. She was admitted for severe renal failure/uremic encephalopathy with hyperkalemia. Creatinine was found to be 5.6. She underwent emergent Hemodialysis. She was found after being alone in the house for two day a * CT head without contrast IMPRESSION: 1. Recent infarcts in the left MCA and left PRINCIPAL LAW CLERK territories. Although there is no volume loss associated with PRINCIPAL LAW CLERK infarct, the hypoattenuation of the parenchyma and loss of laboy-white differentiation is more conspicuous, suggesting this may be an older infarct. 2. No acute hemorrhage. Report of these findings was called to Dr. Novak in the emergency department at the time of dictation. Subacute CVA, -allergic to aspirin, onplavix, cannot give statin due to elevated LFTs MRA brain shows Abscense of flow in left post cereberal artery, MRA neck neg, carotid doppler neg embolic workup in progress, neurology consult appreciated, EDINSON performed on 10/23, developed hypotension after which she was transferred to the ICU, no clots or PFO seen on EDINSON -Has been requiring pressors, was intubated, now being weaning off pressors Acute metabolic encephalopathy, likely due to TUNDE and cva -worsening today, not very arousable, infection workup in progress, obtain CT head and NH3 level ARF/CKD 4 vasomotor +ATN: continue HD watch for signs of renal recovery Hyperkalemia: improved with HD Hx of cad, sp cabg. new onset systolic chf -Wide complex tachycardia -med mgt per cardiology, maintain electrolytes with HD to prevent further arrythmias -had normal EF in 2017, now has EF of 15% high grade fever today ID consult, UA, BC, cxr pending Glaucoma: continue latanoprost eyedrops Vitamin D deficiency: Continue vitamin D Hyperlipidemia: Continue statins Peripheral neuropathy: Continue gabapentin Seizure disorder: Continue Keppra Hypertension: Continue antihypertensives DVT prophylaxis: heparin and GI prophylaxis dispo; to snf, case dw with her sister Annabelle at [phone] CCT 33 mins History Interval history: Left-sided weakness, patient is more confused, and lethargic today Review of systems Constitutional: having fever this am CVS: No chest pain, no orthopnea, no dyspnea on exertion, no pedal edema GI: No abdominal pain, no diarrhea, no vomiting, no constipation Respiratory: no wheezing, no coughing Hospitalist Physical - Physical exam Narrative exam: General.: Appears chronically ill HEENT: Moist mucous membranes, extraocular muscles intact, no lymphadenopathy Neck: supple Cardiac: S1-S2 heard Lungs: clear to auscultation bilaterally Abdomen: soft , nontender, nondistended, bowel sounds positive Extremities: no edema clubbing or cyanosis Skin: no rash or lesions Neurologic: Left-sided weakness,c onfused and lethargic Psych: lethargic - Constitutional Vitals: Temp Pulse Resp BP Pulse Ox 97.2 F L 78 15 124/76 98 10/26/18 09:30 10/26/18 11:48 10/26/18 11:48 10/26/18 10:45 10/26/18 04:37 General appearance: Present: no acute distress Results - Labs CBC & Chem 7: 10/26/18 06:13 10/26/18 06:13 Labs: Laboratory Last Values WBC 12.3 K/mm3 (4.5-11.0) H 10/26/18 06:13 RBC 3.35 M/mm3 (3.65-5.03) L 10/26/18 06:13 Hgb 10.2 gm/dl (10.1-14.3) 10/26/18 06:13 Hct 32.3 % (30.3-42.9) 10/26/18 06:13 MCV 97 fl (79-97) 10/26/18 06:13 MCH 31 pg (28-32) 10/26/18 06:13 MCHC 32 % (30-34) 10/26/18 06:13 RDW 16.4 % (13.2-15.2) H 10/26/18 06:13 Plt Count 211 K/mm3 (140-440) 10/26/18 06:13 Lymph % (Auto) 8.4 % (13.4-35.0) L 10/26/18 06:13 Tillman % (Auto) 10.7 % (0.0-7.3) H 10/26/18 06:13 Eos % (Auto) 0.2 % (0.0-4.3) 10/26/18 06:13 Baso % (Auto) 0.3 % (0.0-1.8) 10/26/18 06:13 Lymph # 1.0 K/mm3 (1.2-5.4) L 10/26/18 06:13 Tillman # 1.3 K/mm3 (0.0-0.8) H 10/26/18 06:13 Eos # 0.0 K/mm3 (0.0-0.4) 10/26/18 06:13 Baso # 0.0 K/mm3 (0.0-0.1) 10/26/18 06:13 Add Manual Diff Complete 10/23/18 05:24 Total Counted 100 10/23/18 05:24 Seg Neutrophils % 80.4 % (40.0-70.0) H 10/26/18 06:13 Seg Neuts % (Manual) 88.0 % (40.0-70.0) H 10/23/18 05:24 0 % 10/23/18 05:24 6.0 % (13.4-35.0) L 10/23/18 05:24 Reactive Lymphs % (Man) 0 % 10/23/18 05:24 5.0 % (0.0-7.3) 10/23/18 05:24 0 % (0.0-4.3) 10/23/18 05:24 0 % (0.0-1.8) 10/23/18 05:24 1.0 % 10/23/18 05:24 0 % 10/23/18 05:24 0 % 10/23/18 05:24 0 % 10/23/18 05:24 Nucleated RBC % Not Reportable 10/23/18 05:24 Seg Neutrophils # 9.9 K/mm3 (1.8-7.7) H 10/26/18 06:13 Seg Neutrophils # Man 9.3 K/mm3 (1.8-7.7) H 10/23/18 05:24 Band Neutrophils # 0.0 K/mm3 10/23/18 05:24 0.6 K/mm3 (1.2-5.4) L 10/23/18 05:24 Abs React Lymphs (Man) 0.0 K/mm3 10/23/18 05:24 0.5 K/mm3 (0.0-0.8) 10/23/18 05:24 0.0 K/mm3 (0.0-0.4) 10/23/18 05:24 0.0 K/mm3 (0.0-0.1) 10/23/18 05:24 0.1 K/mm3 10/23/18 05:24 0.0 K/mm3 10/23/18 05:24 0.0 K/mm3 10/23/18 05:24 Blast Cells # 0.0 K/mm3 10/23/18 05:24 Pathologist Review 10/19/18 05:20 WBC Morphology Not Reportable 10/23/18 05:24 Hypersegmented Neuts Not Reportable 10/23/18 05:24 Hyposegmented Neuts Not Reportable 10/23/18 05:24 Hypogranular Neuts Not Reportable 10/23/18 05:24 Not Reportable 10/23/18 05:24 Not Reportable 10/23/18 05:24 Not Reportable 10/23/18 05:24 Not Reportable 10/23/18 05:24 Not Reportable 10/23/18 05:24 Not Reportable 10/23/18 05:24 Consistent w auto 10/23/18 05:24 Not Reportable 10/23/18 05:24 Plt Clumps, EDTA Not Reportable 10/23/18 05:24 Not Reportable 10/23/18 05:24 Not Reportable 10/23/18 05:24 Not Reportable 10/23/18 05:24 Plt Morphology Comment Not Reportable 10/23/18 05:24 RBC Morphology Not Reportable 10/23/18 05:24 Dimorphic RBCs Not Reportable 10/23/18 05:24 Not Reportable 10/23/18 05:24 Not Reportable 10/23/18 05:24 Few 10/23/18 05:24 1+ 10/23/18 05:24 Not Reportable 10/23/18 05:24 Not Reportable 10/23/18 05:24 Not Reportable 10/23/18 05:24 Not Reportable 10/23/18 05:24 Not Reportable 10/23/18 05:24 Not Reportable 10/23/18 05:24 Not Reportable 10/23/18 05:24 Few 10/23/18 05:24 Not Reportable 10/23/18 05:24 Not Reportable 10/23/18 05:24 Not Reportable 10/23/18 05:24 Not Reportable 10/23/18 05:24 Not Reportable 10/23/18 05:24 Not Reportable 10/23/18 05:24 Not Reportable 10/23/18 05:24 Acanthocytes (Spur) Not Reportable 10/23/18 05:24 Rouleaux Not Reportable 10/23/18 05:24 Not Reportable 10/23/18 05:24 Not Reportable 10/23/18 05:24 Not Reportable 10/23/18 05:24 Not Reportable 10/23/18 05:24 Hem Pathologist Commnt No 10/23/18 05:24 PT 20.6 Sec. (12.2-14.9) H 10/17/18 10:19 INR 1.81 (0.87-1.13) H 10/17/18 10:19 APTT 35.6 Sec. (24.2-36.6) 10/17/18 10:19 18.7 Sec. (15.1-19.6) 10/17/18 10:19 Heparin Anti-Xa, Unfract Negative (Negative) 10/19/18 08:34 POC ABG pH 7.436 (7.35-7.45) 10/23/18 20:51 POC ABG pCO2 34.3 (35-45) L 10/23/18 20:51 POC ABG pO2 95 (80-105) 10/23/18 20:51 POC ABG HCO3 23.1 (22-26 mml/L) 10/23/18 20:51 POC ABG Total CO2 24 (23-27mmol/L) 10/23/18 20:51 POC ABG O2 Sat 98 10/23/18 20:51 POC ABG Base Excess -1 ((-2) - (+3)mmol/L) 10/23/18 20:51 24 % 10/23/18 20:51 Sodium 136 mmol/L (137-145) L 10/26/18 06:13 Potassium 4.7 mmol/L (3.6-5.0) 10/26/18 06:13 Chloride 91.7 mmol/L (98-107) L 10/26/18 06:13 Carbon Dioxide 24 mmol/L (22-30) 10/26/18 06:13 25 mmol/L 10/26/18 06:13 BUN 54 mg/dL (7-17) H 10/26/18 06:13 6.0 mg/dL (0.7-1.2) H 10/26/18 06:13 Estimated GFR 9 ml/min 10/26/18 06:13 9 % 10/26/18 06:13 Glucose 247 mg/dL (65-100) H 10/26/18 06:13 POC Glucose 228 (70-105) H 10/25/18 16:16 Lactic Acid 1.30 mmol/L (0.7-2.0) 10/23/18 14:59 Calcium 8.6 mg/dL (8.4-10.2) 10/26/18 06:13 Phosphorus 5.30 mg/dL (2.5-4.5) H D 10/23/18 05:24 Magnesium 1.70 mg/dL (1.7-2.3) 10/20/18 12:22 Iron 55 ug/dL (37-170) 10/19/18 08:34 TIBC 193 mcg/dL (250-450) L 10/19/18 08:34 2450.0 ng/mL (13.0-400.0) H 10/19/18 08:34 0.50 mg/dL (0.1-1.2) 10/26/18 06:13 AST 36 units/L (5-40) 10/26/18 06:13 ALT 18 units/L (7-56) 10/26/18 06:13 251 units/L (35-129) H 10/26/18 06:13 44.0 umol/L (25-60) 10/17/18 15:43 458 units/L (91-180) H 10/26/18 06:13 3216 units/L (30-135) H 10/17/18 15:15 4.720 ng/mL (0.00-0.029) H* 10/17/18 Unknown 24.10 mg/dL (0.00-1.30) H 10/23/18 14:59 5.5 g/dL (6.1-8.1) L 10/20/18 05:07 5.9 g/dL (6.3-8.2) L 10/26/18 06:13 3.0 g/dL (3.9-5) L 10/26/18 06:13 1.0 % 10/26/18 06:13 0.4 g/dL (0.2-0.3) H 10/20/18 05:07 0.9 g/dL (0.5-0.9) 10/20/18 05:07 0.3 g/dL (0.2-0.5) 10/20/18 05:07 0.8 g/dL (0.8-1.7) 10/20/18 05:07 Abnorm Protein Band 1 see below 10/20/18 05:07 PEP Interpretation see below H 10/20/18 05:07 Triglycerides 102 mg/dL (2-149) 10/17/18 Unknown Cholesterol 198 mg/dL (50-199) 10/17/18 Unknown 116 mg/dL (50-130) 10/17/18 Unknown 88 mg/dL (40-59) H 10/17/18 Unknown 2.25 % 10/17/18 Unknown See scanned result 10/19/18 08:34 Vitamin B12 1296 pg/mL (211-911) H 10/19/18 08:34 8.42 ng/mL (7.3-26.0) 10/19/18 08:34 TSH 1.030 mlU/mL (0.270-4.200) 10/17/18 Unknown Free T4 1.26 ng/dL (0.76-1.46) 10/17/18 Unknown Yellow (Yellow) 10/17/18 11:25 Slightly-cloudy (Clear) 10/17/18 11:25 5.0 (5.0-7.0) 10/17/18 11:25 Ur Specific [place] 1.019 (1.003-1.030) 10/17/18 11:25 100 mg/dl mg/dL (Negative) 10/17/18 11:25 150 mg/dL (Negative) 10/17/18 11:25 Tr mg/dL (Negative) 10/17/18 11:25 Sm (Negative) 10/17/18 11:25 Neg (Negative) 10/17/18 11:25 Neg (Negative) 10/17/18 11:25 < 2.0 mg/dL (<2.0) 10/17/18 11:25 Ur Leukocyte Esterase Tr (Negative) 10/17/18 11:25 3.0 /HPF (0.0-6.0) 10/17/18 11:25 2.0 /HPF (0.0-6.0) 10/17/18 11:25 Few /HPF 10/17/18 11:25 None seen (None Seen) 10/17/18 13:16 60 ml 10/21/18 18:19 196.7 mg/dL (0.1-20.0) H 10/21/18 18:19 Ur Creatinine 24 Hour 0.1 (0.8-2.8) L 10/21/18 18:19 Height (in) 62.0 inches 10/20/18 13:45 Weight (lb) 126.5 lbs 10/20/18 13:45 3 10/20/18 13:45 Protein/Creatinin Ratio 0.69 10/17/18 13:16 12 mmol/L 10/17/18 13:34 191 mg/dL (5-11.8) H 10/17/18 13:16 Salicylates < 0.3 mg/dL (2.8-20.0) L 10/17/18 Unknown Acetaminophen < 5.0 ug/mL (10.0-30.0) L 10/17/18 Unknown Plasma/Serum Alcohol < 0.01 % (0-0.07) 10/17/18 Unknown Immunofix Electrophor see below 10/20/18 05:07 Heparin-induced Plt Ab Negative (Negative) 10/19/18 08:34 UF Heparin High Dose 0 % Release 10/19/18 08:34 KAILYN UFH Low Dose 0.1 0 % Release 10/19/18 08:34 KAILYN UFH Low Dose 0.5 0 % Release 10/19/18 08:34 Hepatitis A IgM Ab Non-reactive (NonReactive) 10/17/18 15:15 Hep Bs Antigen Non-reactive (Negative) 10/17/18 15:15 Hep B Core IgM Ab Non-reactive (NonReactive) 10/17/18 15:15 Non-reactive (NonReactive) 10/17/18 15:15 Rare 10/17/18 15:43 Flexitest 1 10/20/18 10:53 Active Medications - Current Medications Current Medications: Generic Name Dose Route Start Last Admin Trade Name Freq PRN Reason Stop Dose Admin Lipase/Protease/Amylase 1 each 10/25/18 09:18 Pancreakila Bruner 10,500 Unit FEEDTUBE PRN PRN For Clogged Feeding Tube Clopidogrel Bisulfate 75 mg 10/21/18 11:00 10/25/18 09:25 Plavix PO 75 mg QDAY ALLEY Administration Docusate Sodium 100 mg 10/24/18 23:45 10/25/18 22:19 Colace FEEDTUBE 100 mg BID ALLEY Administration Ergocalciferol 50,000 unit 10/24/18 10:00 10/24/18 10:42 Vitamin D2 PO 50,000 unit Sa ALLEY Administration Famotidine 20 mg 10/21/18 10:00 10/25/18 09:25 Pepcid PO 20 mg DAILY ALLEY Administration Gabapentin 300 mg 10/17/18 22:00 10/25/18 22:19 Neurontin PO 300 mg QHS ALLEY Administration Phenylephrine HCl 100 mg/ 100 mls @ 3 mls/hr 10/23/18 11:30 Sodium Chloride IV TITR ALLEY Protocol 50 MCG/MIN Sodium Chloride 100 mls @ 999 mls/hr 10/25/18 14:52 Nacl 0.9% IV LESLIE PRN Hypotension Insulin Human Lispro 0 unit 10/24/18 12:00 10/26/18 06:02 Humalog SUB-Q 3 unit Q6HR ALLEY Administration Protocol Latanoprost 1 drops 10/17/18 18:00 10/25/18 18:24 Latanoprost 0.005% OU 1 drops QPM ALLEY Administration Levetiracetam 500 mg 10/21/18 10:00 10/25/18 22:19 Keppra PO 500 mg BID ALLEY Administration Simple Syrup 15 ml 10/25/18 09:18 Simple Syrup FEEDTUBE PRN PRN Hypoglycemia Simple Syrup 30 ml 10/25/18 09:18 Simple Syrup FEEDTUBE PRN PRN Hypoglycemia Sodium Bicarbonate 325 mg 10/17/18 17:00 10/25/18 09:25 Sodium Bicarbonate PO 325 mg DAILY ALLEY Administration Sodium Bicarbonate 325 mg 10/25/18 09:18 Sodium Bicarbonate FEEDTUBE PRN PRN For Clogged Feeding Tube Nutrition/Malnutrition Assess - Dietary Evaluation Nutrition/Malnutrition Findings: Nutrition Notes Start: 10/18/18 14:28 Freq: Status: Active Protocol: Document 10/24/18 10:16 LP (Rec: 10/24/18 10:32 LP [id number]) Nutrition Notes Initial or Follow up Reassessment Current Diagnosis Acute Kidney Injury,CKD(stage I-IV),Coronary Artery Disease, Diabetes,Hypertension,Heart Failure,Stroke,Hyperlipidemia Other Pertinent Diagnosis Skin tears on foot and leg Current Diet NPO Labs/Tests Na 136 BUN 25 Cr 3.3 BG 214 Pertinent Medications Reviewed Height 5 ft 2 in Weight 57.6 kg [place] Body Weight (kg) 50.00 BMI 23.2 Weight change and time frame Fluid fluctuating due to being on HD with renal issues Subjective/Other Information Consult for TF. Pt noted with some non pitting edema in periorbital region. Dobhoff placed Burn Absent Trauma Absent Minimum of two criteria Yes Body Fat Depletion Mild depletion (non-severe) Muscle Mass Mild Depletion (non-severe) Fluid Accumulation Mild (non-severe) Reduced Manager Card Strength Measurably Reduced (severe) #2 Nutrition Diagnosis Malnutrition Etiology Chronic illness As Evidenced by Signs and Symptoms Pt not eating well and now has dobhoff placed for TF #1 Nutrition Diagnosis Inadequate oral intake As Evidenced by Signs and Symptoms Consult for TF Diagnosis Progress(for reassessment Worsened documentation) Is patient on ventilator? No Is Patient Ambulatory and/or Out of Bed No REE-([facility]-confined to bed) 1306.452 Calculation Used for Recommendations [facility] Additional Notes Protein Needs: 69-86g(1.2-1.5g /kg) Fluid Needs: 1 ml/kcal Nutrition Intervention Change Diet Order: TF Nutrition Support: Nepro at 30ml/hr Flush with 120ml q4h Kcal 1,296 Protein (gm) 58 Fluid (mL) 523 Add Supplement/Snack (indicate name/kcal D/C /protein ) Goal #1 Meet at least 80% of kcal and protein needs via TF Anticipated Discharge Needs: Unable to determine at this time Follow-Up By: 10/26/18 Additional Comments Follow for TF start/tolerance, renal labs
[2018-10-26 13:44] LABS: Total Cells Counted 100
[2018-10-26 13:45] LABS: Anisocytosis 1+; Band Neutrophils # (Manual) 0.4 K/mm3; Basophils % (Manual) 0 % (0.0-1.8); Eosinophils % (Manual) 0 % (0.0-4.3); Smudge Cells Few
[2018-10-26 13:46] LABS: Burr Cells 3+; Ovalocytes Few; Target Cells Rare
[2018-10-26 13:48] LABS: Hypochromasia Few; Macrocytosis 1+
[2018-10-26 13:49] LABS: Platelet Estimate Consistent w Auto
[2018-10-26] MEDS: KEPPRA PO SCH ×2 (14:08→22:20)
[2018-10-26] MEDS: COLACE FEEDTUBE SCH ×2 (14:08→22:20)
[2018-10-26] MEDS: PLAVIX PO SCH (14:09)
[2018-10-26] MEDS: PEPCID PO SCH (14:09)
[2018-10-26] MEDS: SODIUM BICARBONATE PO SCH (14:09)
--- NOTE | 2018-10-26 15:01 | Progress Note ---
Assessment and Plan Acute CVA, embolic -initiated on plavix (NSAIDS allergy) -EDINSON done reports no cardiac source of emboli and no evidence of endocarditis, LVEF 5-10% Altered mental status Left Pleural effusion Chronic kidney disease initiated on dialysis Elevated liver enzymes Thrombocytopenia Hypertension Diabetes Hx of CAD with prior CABG paroxysmal NSVT TSH is normal No ischemia by MPI 04/2016. Normal LVEF 50-55% by echo 09/2016. A repeat echocardiogram revealed right heart enlargement with a severely decreased left ventricular systolic function, EF 10-15%. The duration of this cardiomyopathy is uncertain. Recommend: Continue medical therapy for dilated cardiomyopathy and coronary artery disease as her blood pressure will allow. Otherwise, conservative cardiac management. Subjective Date of service: 10/26/18 Principal diagnosis: low plt Interval history: Undergoing dialysis. No distress noted. Objective Vital Signs Temp Pulse Pulse Resp BP BP Pulse Ox 10/26/18 13:00 97.2 F L 84 18 102/60 10/26/18 12:40 84 102/60 10/26/18 12:30 82 92/69 10/26/18 12:15 78 104/67 10/26/18 12:00 81 116/70 10/26/18 11:48 78 15 10/26/18 11:45 80 110/63 10/26/18 11:30 81 112/69 10/26/18 11:15 81 114/71 10/26/18 11:00 79 120/70 10/26/18 10:45 83 124/76 10/26/18 10:30 84 112/71 10/26/18 10:15 86 110/71 10/26/18 10:00 83 100/61 10/26/18 09:45 83 104/69 10/26/18 09:40 82 102/69 10/26/18 09:30 97.2 F L 82 18 105/61 10/26/18 05:08 16 10/26/18 04:38 101.0 F H 10/26/18 04:37 89 20 98/66 98 10/25/18 23:37 97.6 F 89 18 106/66 99 10/25/18 20:35 89 10/25/18 19:42 98.4 F 10/25/18 19:40 84 20 103/64 100 10/25/18 16:00 87 16 123/76 95 - Physical Examination General: No Apparent Distress Neck: Positive: trachea midline, JVD/HJR Cardiac: Positive: Reg Rate and Rhythm Lungs: Positive: Decreased Breath Sounds Neuro: Positive: Weakness, Other (Nonverbal or communicative) Extremities: Absent: edema - Labs and Meds Cardiac Enzymes 10/26/18 Range/Units 06:13 AST 36 (5-40) units/L Lactate Dehydrogenase 458 H (91-180) units/L CBC 10/24/18 10/26/18 Range/Units 04:50 06:13 WBC 11.0 12.3 H (4.5-11.0) K/mm3 RBC 3.13 L 3.35 L (3.65-5.03) M/mm3 Hgb 9.7 L 10.2 (10.1-14.3) gm/dl Hct 30.4 32.3 (30.3-42.9) % Plt Count 132 L 211 (140-440) K/mm3 Lymph # Chief Load Dispatcher 1.0 L [place] # Chief Load Dispatcher 1.3 H Eos # Chief Load Dispatcher 0.0 Baso # Chief Load Dispatcher 0.0 Comprehensive Metabolic Panel 10/20/18 10/26/18 Range/Units 05:07 06:13 Sodium 136 L (137-145) mmol/L Potassium 4.7 (3.6-5.0) mmol/L Chloride 91.7 L (98-107) mmol/L Carbon Dioxide 24 (22-30) mmol/L BUN 54 H (7-17) mg/dL Creatinine 6.0 H (0.7-1.2) mg/dL Glucose 247 H (65-100) mg/dL Calcium 8.6 (8.4-10.2) mg/dL AST 36 (5-40) units/L ALT 18 (7-56) units/L Alkaline Phosphatase 251 H (35-129) units/L Total Protein 5.9 L (6.3-8.2) g/dL Albumin 2.7 L 3.0 L (3.8-4.8) g/dL - Allied health notes Allied health notes reviewed: nursing
--- NOTE | 2018-10-26 15:05 | Progress Note ---
Assessment and Plan Pt sleeping not responding to verbal stimuli. Pt is on 3L O2 saturation 98%. No acute respiratory distress. Patient febrile with mild leukocytosis. - Patient Problems (1) Pneumonia Current Visit: Yes Status: Acute Plan to address problem: Chest Xray reported left sided retrocardiac opacity Recommend blood cultures and start on antibiotics (2) Acute CVA (cerebrovascular accident) Current Visit: Yes Status: Acute Plan to address problem: management as per neurology (3) Acute encephalopathy Current Visit: Yes Status: Acute Plan to address problem: management as per primary care (4) Acute on chronic renal failure Current Visit: Yes Status: Acute Qualifiers: Acute renal failure type: with acute tubular necrosis Chronic kidney disease stage: stage 5, not on chronic dialysis Qualified Code(s): N17.0 - Acute kidney failure with tubular necrosis; N18.5 - Chronic kidney disease, sta ge 5 Plan to address problem: management as per nephrology (5) Hypertension Current Visit: Yes Status: Chronic Qualifiers: Hypertension type: essential hypertension Qualified Code(s): I10 - Essential (primary) hypertension Plan to address problem: management as per primary care (6) Seizure disorder Current Visit: Yes Status: Chronic Plan to address problem: management as per primary (7) Diabetes mellitus Current Visit: No Status: Acute Plan to address problem: management as per primary Subjective Date of service: 10/26/18 Principal diagnosis: low plt Interval history: Pt sleeping not responding to verbal stimuli. Pt is on 3L O2 saturation 98%. No acute respiratory distress. Patient febrile with mild leukocytosis. Objective Vital Signs - 12hr 10/26/18 10/26/18 10/26/18 04:37 04:38 05:08 Temperature 101.0 F H Pulse Rate 89 Pulse Rate [ Right Popliteal ] Respiratory 20 16 Rate Blood Pressure 98/66 O2 Sat by Pulse 98 Oximetry 10/26/18 10/26/18 10/26/18 09:30 09:40 09:45 Temperature 97.2 F L Pulse Rate 82 82 83 Pulse Rate [ Right Popliteal ] Respiratory 18 Rate Blood Pressure 105/61 102/69 104/69 O2 Sat by Pulse Oximetry 10/26/18 10/26/18 10/26/18 10:00 10:15 10:30 Temperature Pulse Rate 83 86 84 Pulse Rate [ Right Popliteal ] Respiratory Rate Blood Pressure 100/61 110/71 112/71 O2 Sat by Pulse Oximetry 10/26/18 10/26/18 10/26/18 10:45 11:00 11:15 Temperature Pulse Rate 83 79 81 Pulse Rate [ Right Popliteal ] Respiratory Rate Blood Pressure 124/76 120/70 114/71 O2 Sat by Pulse Oximetry 10/26/18 10/26/18 10/26/18 11:30 11:45 11:48 Temperature Pulse Rate 81 80 Pulse Rate [ 78 Right Popliteal ] Respiratory 15 Rate Blood Pressure 112/69 110/63 O2 Sat by Pulse Oximetry 10/26/18 10/26/18 10/26/18 12:00 12:15 12:30 Temperature Pulse Rate 81 78 82 Pulse Rate [ Right Popliteal ] Respiratory Rate Blood Pressure 116/70 104/67 92/69 O2 Sat by Pulse Oximetry 10/26/18 10/26/18 12:40 13:00 Temperature 97.2 F L Pulse Rate 84 84 Pulse Rate [ Right Popliteal ] Respiratory 18 Rate Blood Pressure 102/60 102/60 O2 Sat by Pulse Oximetry Constitutional: no acute distress, asleep Eyes: non-icteric ENT: oropharynx moist Neck: supple, no lymphadenopathy Ascultation: Bilateral: clear Cardiovascular: regular rate and rhythm Gastrointestinal: normoactive bowel sounds, soft, non-tender Integumentary: normal Neurologic: other (patient sleeping) Psychiatric: other (patient sleeping) CBC and BMP: 10/26/18 06:13 10/26/18 06:13 ABG, PT/INR, D-dimer: ABG POC ABG pH 7.436 (7.35-7.45) 10/23/18 20:51 POC ABG pCO2 34.3 (35-45) L 10/23/18 20:51 POC ABG pO2 95 (80-105) 10/23/18 20:51 POC ABG HCO3 23.1 (22-26 mml/L) 10/23/18 20:51 POC ABG Total CO2 24 (23-27mmol/L) 10/23/18 20:51 POC ABG O2 Sat 98 10/23/18 20:51 PT/INR, D-dimer PT 20.6 Sec. (12.2-14.9) H 10/17/18 10:19 INR 1.81 (0.87-1.13) H 10/17/18 10:19 Abnormal lab findings: Abnormal Labs 10/17/18 10/17/18 10/17/18 10:16 10:19 10:19 WBC RBC Hgb Hct MCV RDW Plt Count Lymph % (Auto) 9.5 L [place] % (Auto) Lymph # 1.0 L [place] # Seg Neutrophils % 84.7 H Seg Neuts % (Manual) Lymphocytes % (Manual) Monocytes % (Manual) Nucleated RBC % Seg Neutrophils # 8.7 H Seg Neutrophils # Man Lymphocytes # (Manual) PT 20.6 H INR 1.81 H POC ABG pH POC ABG pCO2 POC ABG pO2 Sodium Potassium Chloride Carbon Dioxide BUN Creatinine Glucose POC Glucose 277 H Calcium Phosphorus TIBC Ferritin AST ALT Alkaline Phosphatase Lactate Dehydrogenase Total Creatine Kinase Troponin T C-Reactive Protein Serum Total Protein Total Protein Albumin Wryki-4-Caogoqeoo PEP Interpretation HDL Cholesterol Vitamin B12 Urine Creatinine Ur Creatinine 24 Hour Urine Total Protein Salicylates Acetaminophen 10/17/18 10/17/18 10/17/18 13:14 13:16 13:34 WBC RBC Hgb Hct MCV RDW Plt Count Lymph % (Auto) [place] % (Auto) Lymph # [place] # Seg Neutrophils % Seg Neuts % (Manual) Lymphocytes % (Manual) Monocytes % (Manual) Nucleated RBC % Seg Neutrophils # Seg Neutrophils # Man Lymphocytes # (Manual) PT INR POC ABG pH POC ABG pCO2 POC ABG pO2 Sodium Potassium Chloride Carbon Dioxide BUN Creatinine Glucose POC Glucose 330 H Calcium Phosphorus TIBC Ferritin AST ALT Alkaline Phosphatase Lactate Dehydrogenase Total Creatine Kinase Troponin T C-Reactive Protein Serum Total Protein Total Protein Albumin Saeyv-6-Ixmipbopt PEP Interpretation HDL Cholesterol Vitamin B12 Urine Creatinine 276.0 H 271.1 H Ur Creatinine 24 Hour Urine Total Protein 191 H Salicylates Acetaminophen 10/17/18 10/17/18 10/17/18 15:15 21:03 Unknown WBC RBC Hgb Hct MCV RDW Plt Count Lymph % (Auto) [place] % (Auto) Lymph # [place] # Seg Neutrophils % Seg Neuts % (Manual) Lymphocytes % (Manual) Monocytes % (Manual) Nucleated RBC % Seg Neutrophils # Seg Neutrophils # Man Lymphocytes # (Manual) PT INR POC ABG pH POC ABG pCO2 POC ABG pO2 Sodium Potassium 6.6 H* Chloride Carbon Dioxide 10 L BUN 111 H Creatinine 6.5 H Glucose 351 H POC Glucose 143 H Calcium Phosphorus TIBC Ferritin AST ALT Alkaline Phosphatase Lactate Dehydrogenase Total Creatine Kinase 3216 H Troponin T 4.720 H* C-Reactive Protein Serum Total Protein Total Protein Albumin Ruxnl-1-Xqsoncwwo PEP Interpretation HDL Cholesterol 88 H Vitamin B12 Urine Creatinine Ur Creatinine 24 Hour Urine Total Protein Salicylates Acetaminophen 10/17/18 10/17/18 10/18/18 Unknown Unknown 07:29 WBC RBC Hgb Hct MCV RDW Plt Count Lymph % (Auto) [place] % (Auto) Lymph # [place] # Seg Neutrophils % Seg Neuts % (Manual) Lymphocytes % (Manual) Monocytes % (Manual) Nucleated RBC % Seg Neutrophils # Seg Neutrophils # Man Lymphocytes # (Manual) PT INR POC ABG pH POC ABG pCO2 POC ABG pO2 Sodium Potassium Chloride Carbon Dioxide BUN Creatinine Glucose POC Glucose 120 H Calcium Phosphorus TIBC Ferritin AST ALT Alkaline Phosphatase Lactate Dehydrogenase Total Creatine Kinase Troponin T C-Reactive Protein Serum Total Protein Total Protein Albumin Pfxxl-4-Uzuvalumh PEP Interpretation HDL Cholesterol Vitamin B12 Urine Creatinine Ur Creatinine 24 Hour Urine Total Protein Salicylates < 0.3 L Acetaminophen < 5.0 L 10/18/18 10/18/18 10/18/18 09:09 09:09 12:21 WBC RBC 3.28 L Hgb Hct MCV RDW Plt Count 125 L Lymph % (Auto) 13.2 L [place] % (Auto) Lymph # 1.1 L [place] # Seg Neutrophils % 80.7 H Seg Neuts % (Manual) Lymphocytes % (Manual) Monocytes % (Manual) Nucleated RBC % Seg Neutrophils # Seg Neutrophils # Man Lymphocytes # (Manual) PT INR POC ABG pH POC ABG pCO2 POC ABG pO2 Sodium Potassium Chloride 97.9 L Carbon Dioxide 20 L D BUN 38 H Creatinine 3.2 H D Glucose 207 H POC Glucose 180 H Calcium Phosphorus TIBC Ferritin AST ALT Alkaline Phosphatase Lactate Dehydrogenase Total Creatine Kinase Troponin T C-Reactive Protein Serum Total Protein Total Protein Albumin Dniiw-7-Yjosbsqbv PEP Interpretation HDL Cholesterol Vitamin B12 Urine Creatinine Ur Creatinine 24 Hour Urine Total Protein Salicylates Acetaminophen 10/18/18 10/18/18 10/19/18 17:14 20:50 05:20 WBC RBC 3.46 L Hgb Hct MCV 98 H RDW 16.4 H Plt Count 55 L Lymph % (Auto) [place] % (Auto) Lymph # [place] # Seg Neutrophils % Seg Neuts % (Manual) Lymphocytes % (Manual) Monocytes % (Manual) 9.0 H Nucleated RBC % 4.0 H Seg Neutrophils # Seg Neutrophils # Man Lymphocytes # (Manual) PT INR POC ABG pH POC ABG pCO2 POC ABG pO2 Sodium Potassium Chloride Carbon Dioxide BUN Creatinine Glucose POC Glucose 256 H 335 H Calcium Phosphorus TIBC Ferritin AST ALT Alkaline Phosphatase Lactate Dehydrogenase Total Creatine Kinase Troponin T C-Reactive Protein Serum Total Protein Total Protein Albumin Alsvz-3-Rtgpodxwd PEP Interpretation HDL Cholesterol Vitamin B12 Urine Creatinine Ur Creatinine 24 Hour Urine Total Protein Salicylates Acetaminophen 10/19/18 10/19/18 10/19/18 05:20 08:34 08:34 WBC RBC Hgb Hct MCV RDW Plt Count Lymph % (Auto) [place] % (Auto) Lymph # [place] # Seg Neutrophils % Seg Neuts % (Manual) Lymphocytes % (Manual) Monocytes % (Manual) Nucleated RBC % Seg Neutrophils # Seg Neutrophils # Man Lymphocytes # (Manual) PT INR POC ABG pH POC ABG pCO2 POC ABG pO2 Sodium Potassium Chloride Carbon Dioxide 21 L BUN 52 H Creatinine 4.2 H Glucose 106 H POC Glucose Calcium Phosphorus TIBC 193 L Ferritin 2450.0 H AST ALT Alkaline Phosphatase Lactate Dehydrogenase 892 H Total Creatine Kinase Troponin T C-Reactive Protein Serum Total Protein Total Protein Albumin Wfgtn-4-Abvcqtcqy PEP Interpretation HDL Cholesterol Vitamin B12 Urine Creatinine Ur Creatinine 24 Hour Urine Total Protein Salicylates Acetaminophen 10/19/18 10/19/18 10/19/18 08:34 09:06 13:41 WBC RBC Hgb Hct MCV RDW Plt Count Lymph % (Auto) [place] % (Auto) Lymph # [place] # Seg Neutrophils % Seg Neuts % (Manual) Lymphocytes % (Manual) Monocytes % (Manual) Nucleated RBC % Seg Neutrophils # Seg Neutrophils # Man Lymphocytes # (Manual) PT INR POC ABG pH POC ABG pCO2 POC ABG pO2 Sodium Potassium Chloride Carbon Dioxide BUN Creatinine Glucose POC Glucose 141 H 156 H Calcium Phosphorus TIBC Ferritin AST ALT Alkaline Phosphatase Lactate Dehydrogenase Total Creatine Kinase Troponin T C-Reactive Protein Serum Total Protein Total Protein Albumin Njqfy-9-Pbanryzgb PEP Interpretation HDL Cholesterol Vitamin B12 1296 H Urine Creatinine Ur Creatinine 24 Hour Urine Total Protein Salicylates Acetaminophen 10/19/18 10/19/18 10/20/18 15:53 22:51 05:07 WBC RBC 3.23 L Hgb 10.0 L Hct MCV RDW 15.7 H Plt Count 111 L D Lymph % (Auto) [place] % (Auto) 8.0 H Lymph # [place] # Seg Neutrophils % Seg Neuts % (Manual) Lymphocytes % (Manual) Monocytes % (Manual) Nucleated RBC % Seg Neutrophils # Seg Neutrophils # Man Lymphocytes # (Manual) PT INR POC ABG pH POC ABG pCO2 POC ABG pO2 Sodium Potassium Chloride Carbon Dioxide BUN Creatinine Glucose POC Glucose 193 H 228 H Calcium Phosphorus TIBC Ferritin AST ALT Alkaline Phosphatase Lactate Dehydrogenase Total Creatine Kinase Troponin T C-Reactive Protein Serum Total Protein Total Protein Albumin Mfnxx-1-Huabiwzof PEP Interpretation HDL Cholesterol Vitamin B12 Urine Creatinine Ur Creatinine 24 Hour Urine Total Protein Salicylates Acetaminophen 10/20/18 10/20/18 10/20/18 05:07 05:07 10:44 WBC RBC Hgb Hct MCV RDW Plt Count Lymph % (Auto) [place] % (Auto) Lymph # [place] # Seg Neutrophils % Seg Neuts % (Manual) Lymphocytes % (Manual) Monocytes % (Manual) Nucleated RBC % Seg Neutrophils # Seg Neutrophils # Man Lymphocytes # (Manual) PT INR POC ABG pH POC ABG pCO2 POC ABG pO2 Sodium Potassium Chloride Carbon Dioxide BUN 32 H Creatinine 3.2 H Glucose 177 H POC Glucose 160 H Calcium 8.0 L Phosphorus TIBC Ferritin AST 305 H ALT 728 H Alkaline Phosphatase 402 H Lactate Dehydrogenase Total Creatine Kinase Troponin T C-Reactive Protein Serum Total Protein 5.5 L Total Protein 6.0 L Albumin 2.9 L 2.7 L Didcp-9-Xowacraxc 0.4 H PEP Interpretation see below H HDL Cholesterol Vitamin B12 Urine Creatinine Ur Creatinine 24 Hour Urine Total Protein Salicylates Acetaminophen 10/20/18 10/20/18 10/20/18 13:45 17:19 20:44 WBC RBC Hgb Hct MCV RDW Plt Count Lymph % (Auto) [place] % (Auto) Lymph # [place] # Seg Neutrophils % Seg Neuts % (Manual) Lymphocytes % (Manual) Monocytes % (Manual) Nucleated RBC % Seg Neutrophils # Seg Neutrophils # Man Lymphocytes # (Manual) PT INR POC ABG pH POC ABG pCO2 POC ABG pO2 Sodium Potassium Chloride Carbon Dioxide BUN Creatinine Glucose POC Glucose 143 H 234 H Calcium Phosphorus TIBC Ferritin AST ALT Alkaline Phosphatase Lactate Dehydrogenase Total Creatine Kinase Troponin T C-Reactive Protein Serum Total Protein Total Protein Albumin Defpi-5-Rlstnfxqh PEP Interpretation HDL Cholesterol Vitamin B12 Urine Creatinine 157.6 H Ur Creatinine 24 Hour Urine Total Protein Salicylates Acetaminophen 10/21/18 10/21/18 10/21/18 05:57 05:57 07:55 WBC RBC 3.16 L Hgb 10.0 L Hct 29.9 L MCV RDW 15.4 H Plt Count 125 L Lymph % (Auto) [place] % (Auto) 9.6 H Lymph # [place] # Seg Neutrophils % 71.3 H Seg Neuts % (Manual) Lymphocytes % (Manual) Monocytes % (Manual) Nucleated RBC % Seg Neutrophils # Seg Neutrophils # Man Lymphocytes # (Manual) PT INR POC ABG pH POC ABG pCO2 POC ABG pO2 Sodium Potassium Chloride Carbon Dioxide BUN 47 H Creatinine 4.9 H D Glucose 229 H POC Glucose 239 H Calcium 8.0 L Phosphorus TIBC Ferritin AST ALT Alkaline Phosphatase Lactate Dehydrogenase Total Creatine Kinase Troponin T C-Reactive Protein Serum Total Protein Total Protein Albumin Vxkol-8-Tqvjwjihc PEP Interpretation HDL Cholesterol Vitamin B12 Urine Creatinine Ur Creatinine 24 Hour Urine Total Protein Salicylates Acetaminophen 10/21/18 10/21/18 10/21/18 12:05 15:40 18:19 WBC RBC Hgb Hct MCV RDW Plt Count Lymph % (Auto) [place] % (Auto) Lymph # [place] # Seg Neutrophils % Seg Neuts % (Manual) Lymphocytes % (Manual) Monocytes % (Manual) Nucleated RBC % Seg Neutrophils # Seg Neutrophils # Man Lymphocytes # (Manual) PT INR POC ABG pH POC ABG pCO2 POC ABG pO2 Sodium Potassium Chloride Carbon Dioxide BUN Creatinine Glucose POC Glucose 446 H 263 H Calcium Phosphorus TIBC Ferritin AST ALT Alkaline Phosphatase Lactate Dehydrogenase Total Creatine Kinase Troponin T C-Reactive Protein Serum Total Protein Total Protein Albumin Kqham-9-Itkswddbo PEP Interpretation HDL Cholesterol Vitamin B12 Urine Creatinine 196.7 H Ur Creatinine 24 Hour 0.1 L Urine Total Protein Salicylates Acetaminophen 10/22/18 10/22/18 10/22/18 00:45 06:24 06:24 WBC RBC 3.17 L Hgb 9.9 L Hct MCV RDW 15.7 H Plt Count 134 L Lymph % (Auto) [place] % (Auto) Lymph # [place] # Seg Neutrophils % Seg Neuts % (Manual) 78.0 H Lymphocytes % (Manual) Monocytes % (Manual) Nucleated RBC % Seg Neutrophils # Seg Neutrophils # Man 8.3 H Lymphocytes # (Manual) PT INR POC ABG pH POC ABG pCO2 POC ABG pO2 Sodium Potassium Chloride Carbon Dioxide BUN 33 H Creatinine 3.9 H Glucose 171 H POC Glucose 179 H Calcium Phosphorus TIBC Ferritin AST ALT Alkaline Phosphatase Lactate Dehydrogenase Total Creatine Kinase Troponin T C-Reactive Protein Serum Total Protein Total Protein Albumin Luvmk-0-Aendqtzrw PEP Interpretation HDL Cholesterol Vitamin B12 Urine Creatinine Ur Creatinine 24 Hour Urine Total Protein Salicylates Acetaminophen 10/22/18 10/22/18 10/22/18 12:47 18:33 21:58 WBC RBC Hgb Hct MCV RDW Plt Count Lymph % (Auto) [place] % (Auto) Lymph # [place] # Seg Neutrophils % Seg Neuts % (Manual) Lymphocytes % (Manual) Monocytes % (Manual) Nucleated RBC % Seg Neutrophils # Seg Neutrophils # Man Lymphocytes # (Manual) PT INR POC ABG pH POC ABG pCO2 POC ABG pO2 Sodium Potassium Chloride Carbon Dioxide BUN Creatinine Glucose POC Glucose 210 H 176 H 230 H Calcium Phosphorus TIBC Ferritin AST ALT Alkaline Phosphatase Lactate Dehydrogenase Total Creatine Kinase Troponin T C-Reactive Protein Serum Total Protein Total Protein Albumin [place]apu-5-Svpfocnhp PEP Interpretation HDL Cholesterol Vitamin B12 Urine Creatinine Ur Creatinine 24 Hour Urine Total Protein Salicylates Acetaminophen 10/23/18 10/23/18 10/23/18 05:24 05:24 07:31 WBC RBC 3.49 L Hgb Hct MCV RDW 16.7 H Plt Count Lymph % (Auto) [place] % (Auto) Lymph # [place] # Seg Neutrophils % Seg Neuts % (Manual) 88.0 H Lymphocytes % (Manual) 6.0 L Monocytes % (Manual) Nucleated RBC % Seg Neutrophils # Seg Neutrophils # Man 9.3 H Lymphocytes # (Manual) 0.6 L PT INR POC ABG pH POC ABG pCO2 POC ABG pO2 Sodium Potassium Chloride Carbon Dioxide BUN 49 H Creatinine 5.0 H Glucose 211 H POC Glucose 137 H Calcium Phosphorus 5.30 H D TIBC Ferritin AST ALT Alkaline Phosphatase Lactate Dehydrogenase Total Creatine Kinase Troponin T C-Reactive Protein Serum Total Protein Total Protein Albumin Qemnl-9-Nngbccgwo PEP Interpretation HDL Cholesterol Vitamin B12 Urine Creatinine Ur Creatinine 24 Hour Urine Total Protein Salicylates Acetaminophen 10/23/18 10/23/18 10/23/18 11:51 14:59 18:29 WBC RBC Hgb Hct MCV RDW Plt Count Lymph % (Auto) [place] % (Auto) Lymph # [place] # Seg Neutrophils % Seg Neuts % (Manual) Lymphocytes % (Manual) Monocytes % (Manual) Nucleated RBC % Seg Neutrophils # Seg Neutrophils # Man Lymphocytes # (Manual) PT INR POC ABG pH 7.346 L POC ABG pCO2 POC ABG pO2 116 H Sodium Potassium Chloride Carbon Dioxide BUN Creatinine Glucose POC Glucose 182 H Calcium Phosphorus TIBC Ferritin AST ALT Alkaline Phosphatase Lactate Dehydrogenase Total Creatine Kinase Troponin T C-Reactive Protein 24.10 H Serum Total Protein Total Protein Albumin Pxqwo-5-Nzlvoomdw PEP Interpretation HDL Cholesterol Vitamin B12 Urine Creatinine Ur Creatinine 24 Hour Urine Total Protein Salicylates Acetaminophen 10/23/18 10/23/18 10/24/18 20:51 23:37 04:50 WBC RBC 3.13 L Hgb 9.7 L Hct MCV RDW 16.8 H Plt Count 132 L Lymph % (Auto) [place] % (Auto) Lymph # [place] # Seg Neutrophils % Seg Neuts % (Manual) 79.0 H Lymphocytes % (Manual) 11.0 L Monocytes % (Manual) Nucleated RBC % Seg Neutrophils # Seg Neutrophils # Man 8.7 H Lymphocytes # (Manual) PT INR POC ABG pH POC ABG pCO2 34.3 L POC ABG pO2 Sodium Potassium Chloride Carbon Dioxide BUN Creatinine Glucose POC Glucose 232 H Calcium Phosphorus TIBC Ferritin AST ALT Alkaline Phosphatase Lactate Dehydrogenase Total Creatine Kinase Troponin T C-Reactive Protein Serum Total Protein Total Protein Albumin Qyfax-2-Wrvjmbnvc PEP Interpretation HDL Cholesterol Vitamin B12 Urine Creatinine Ur Creatinine 24 Hour Urine Total Protein Salicylates Acetaminophen 10/24/18 10/24/18 10/24/18 04:50 07:44 11:52 WBC RBC Hgb Hct MCV RDW Plt Count Lymph % (Auto) [place] % (Auto) Lymph # [place] # Seg Neutrophils % Seg Neuts % (Manual) Lymphocytes % (Manual) Monocytes % (Manual) Nucleated RBC % Seg Neutrophils # Seg Neutrophils # Man Lymphocytes # (Manual) PT INR POC ABG pH POC ABG pCO2 POC ABG pO2 Sodium 136 L Potassium Chloride 94.6 L Carbon Dioxide BUN 25 H Creatinine 3.3 H Glucose 214 H POC Glucose 219 H 290 H Calcium Phosphorus TIBC Ferritin AST ALT Alkaline Phosphatase Lactate Dehydrogenase Total Creatine Kinase Troponin T C-Reactive Protein Serum Total Protein Total Protein Albumin Xtfsp-5-Ldxaxfuqf PEP Interpretation HDL Cholesterol Vitamin B12 Urine Creatinine Ur Creatinine 24 Hour Urine Total Protein Salicylates Acetaminophen 10/24/18 10/24/18 10/25/18 18:25 21:12 06:29 WBC RBC Hgb Hct MCV RDW Plt Count Lymph % (Auto) [place] % (Auto) Lymph # [place] # Seg Neutrophils % Seg Neuts % (Manual) Lymphocytes % (Manual) Monocytes % (Manual) Nucleated RBC % Seg Neutrophils # Seg Neutrophils # Man Lymphocytes # (Manual) PT INR POC ABG pH POC ABG pCO2 POC ABG pO2 Sodium Potassium Chloride Carbon Dioxide BUN Creatinine Glucose POC Glucose 113 H 123 H 208 H Calcium Phosphorus TIBC Ferritin AST ALT Alkaline Phosphatase Lactate Dehydrogenase Total Creatine Kinase Troponin T C-Reactive Protein Serum Total Protein Total Protein Albumin Dqbmn-7-Ihbrilpxx PEP Interpretation HDL Cholesterol Vitamin B12 Urine Creatinine Ur Creatinine 24 Hour Urine Total Protein Salicylates Acetaminophen 10/25/18 10/25/18 10/25/18 11:31 12:28 16:16 WBC RBC Hgb Hct MCV RDW Plt Count Lymph % (Auto) [place] % (Auto) Lymph # [place] # Seg Neutrophils % Seg Neuts % (Manual) Lymphocytes % (Manual) Monocytes % (Manual) Nucleated RBC % Seg Neutrophils # Seg Neutrophils # Man Lymphocytes # (Manual) PT INR POC ABG pH POC ABG pCO2 POC ABG pO2 Sodium Potassium Chloride 94.1 L Carbon Dioxide BUN 42 H Creatinine 4.8 H Glucose 192 H POC Glucose 225 H 228 H Calcium Phosphorus TIBC Ferritin AST ALT Alkaline Phosphatase Lactate Dehydrogenase Total Creatine Kinase Troponin T C-Reactive Protein Serum Total Protein Total Protein Albumin Kxwaj-0-Zmkjulnyw PEP Interpretation HDL Cholesterol Vitamin B12 Urine Creatinine Ur Creatinine 24 Hour Urine Total Protein Salicylates Acetaminophen 10/26/18 10/26/18 06:13 06:13 WBC 12.3 H RBC 3.35 L Hgb Hct MCV RDW 16.4 H Plt Count Lymph % (Auto) 8.4 L [place] % (Auto) 10.7 H Lymph # 1.0 L [place] # 1.3 H Seg Neutrophils % 80.4 H Seg Neuts % (Manual) Lymphocytes % (Manual) Monocytes % (Manual) Nucleated RBC % Seg Neutrophils # 9.9 H Seg Neutrophils # Man Lymphocytes # (Manual) PT INR POC ABG pH POC ABG pCO2 POC ABG pO2 Sodium 136 L Potassium Chloride 91.7 L Carbon Dioxide BUN 54 H Creatinine 6.0 H Glucose 247 H POC Glucose Calcium Phosphorus TIBC Ferritin AST ALT Alkaline Phosphatase 251 H Lactate Dehydrogenase 458 H Total Creatine Kinase Troponin T C-Reactive Protein Serum Total Protein Total Protein 5.9 L Albumin 3.0 L [place]-1-Ffcqmjpzj PEP Interpretation HDL Cholesterol Vitamin B12 Urine Creatinine Ur Creatinine 24 Hour Urine Total Protein Salicylates Acetaminophen Chest x-ray: report reviewed, image reviewed Additional Studies: Chest X-ray 10/23/18: IMPRESSION: 1. Retrocardiac opacity is present likely reflecting a small pleural effusion a nd associated atelectasis. Allied health notes reviewed: nursing
[2018-10-26] MEDS: LATANOPROST 0.005% OU SCH (17:07)
--- NOTE | 2018-10-26 19:34 | XRay Report ---
CHEST 1 VIEW INDICATION: fever. COMPARISON: 10/23/2018. FINDINGS: Support devices: Unchanged. Heart: Stable cardiomegaly. Lungs/Pleura: Left basilar effusion/volume loss is unchanged. There is increasing right basilar effus ion/volume loss. Negative for patchy infiltrate. Additional findings: None. IMPRESSION: Increasing right basilar effusion/volume loss. Signer Name: Silver Case MD Signed: 10/26/2018 7:29 PM Workstation Name: [id number]
[2018-10-26] MEDS: NEURONTIN PO SCH (22:20)
[2018-10-27] MEDS: HumaLOG SUB-Q SCH ×4 (01:28→17:32)
--- NOTE | 2018-10-27 06:21 | Hem/Onc Progress Note ---
Assessment and Plan 1. Elevated LDH. Smear has been evaluated. HIT NEGATIVE, [id number] 90% 2. Renal impairment. Nephrology team following the patient. SPEP normal 3. deficiency investigation. The smear evaluation is being done. The platelet counts at admission were normal and then have gone down. The cause of thrombocytopenia unclear. Her mentation is also not perfect. I will follow the trend of the counts. b12 - folate - iron ferritin normal 4. Cerebrovascular accident?. neurology following. 5. Electrolyte imbalance. 6. Vitamin D deficiency. 8. History of diabetes. 9. History of hypertension. 10. History of seizure. 11. Hyperlipidemia. pt plt have improved - smear - rare schistocytes neurology following - cva low EF Stroke: - Likely cardio-embolic, as b/l infarcts seen on MRI. - MRA head/neck did not reveal any significant stenosis - Echo: EF 10-15%, bubble study negative, LA moderately dilated - EDINSON did not reveal any evidence of intracardiac thrombi. 10/27 - plt normalized hb stable beater head high [id number] 90% - less likely TTP plt rare schistocytes HIT neg SPEP no monoclonal band LDH lower - last 400, in past this was 800s - Patient Problems (1) Thrombocytopenia Current Visit: Yes Status: Acute Subjective Date of service: 10/27/18 Principal diagnosis: h/o low plt Interval history: not verbalizing Objective - Exam Narrative Exam: Pain Not evaluable General appearance no acute distress Performance status -completely disabled Eyes EOM not able to evaluate ENT no nose/ear bleed LNs cervical not palpable Neck Not evaluable Respiratory Normal Breath sounds - CTA anteriorly CVS S1 S2 + Extremities normal temperature/ no edema General GI Soft non tender Rectal deferred Female - deferred Skin warm Musculoskeletal generalized weakness Neurologically not responsive - Constitutional Vitals: Last Vital Signs Temp 98.3 F 10/27/18 04:00 Pulse 83 10/27/18 04:00 Resp 18 10/27/18 04:00 BP 124/70 10/27/18 04:00 Pulse Ox 95 10/27/18 04:00 - Labs Lab Results: Laboratory Results - last 24 hr 10/19/18 10/24/18 10/25/18 08:34 04:50 23:38 WBC 11.0 RBC 3.13 L Hgb 9.7 L Hct 30.4 MCV 97 MCH 31 MCHC 32 RDW 16.8 H Plt Count 132 L Lymph % (Auto) Loss Prevention And Safety Manager Dyer % (Auto) Loss Prevention And Safety Manager Eos % (Auto) Loss Prevention And Safety Manager Baso % (Auto) Loss Prevention And Safety Manager Lymph # Loss Prevention And Safety Manager Dyer # Loss Prevention And Safety Manager Eos # Loss Prevention And Safety Manager Baso # Loss Prevention And Safety Manager Add Manual Diff Complete Total Counted 100 Seg Neutrophils % Loss Prevention And Safety Manager Seg Neuts % (Manual) 79.0 H Band Neutrophils % 4.0 Lymphocytes % (Manual) 11.0 L Reactive Lymphs % (Man) 0 Monocytes % (Manual) 6.0 Eosinophils % (Manual) 0 Basophils % (Manual) 0 Metamyelocytes % 0 Myelocytes % 0 Promyelocytes % 0 Blast Cells % 0 Nucleated RBC % Not Reportable Seg Neutrophils # Loss Prevention And Safety Manager Seg Neutrophils # Man 8.7 H Band Neutrophils # 0.4 Lymphocytes # (Manual) 1.2 Abs React Lymphs (Man) 0.0 Monocytes # (Manual) 0.7 Eosinophils # (Manual) 0.0 Basophils # (Manual) 0.0 Metamyelocytes # 0.0 Myelocytes # 0.0 Promyelocytes # 0.0 Blast Cells # 0.0 Pathologist Review Hypersegmented Neuts Not Reportable Hyposegmented Neuts Not Reportable Hypogranular Neuts Not Reportable Smudge Cells Few Toxic Granulation Not Reportable Toxic Vacuolation Not Reportable Dohle Bodies Not Reportable Pelger-Huet Anomaly Not Reportable Rani Rods Not Reportable Platelet Estimate Consistent w auto Clumped Platelets Not Reportable Plt Clumps, EDTA Not Reportable Large Platelets Not Reportable Giant Platelets Not Reportable Platelet Satelliting Not Reportable Plt Morphology Comment Not Reportable RBC Morphology Not Reportable Dimorphic RBCs Not Reportable Polychromasia Not Reportable Hypochromasia Few Poikilocytosis Not Reportable Anisocytosis 1+ Microcytosis Not Reportable Macrocytosis 1+ Spherocytes Not Reportable Pappenheimer Bodies Not Reportable Sickle Cells Not Reportable Target Cells Rare Tear Drop Cells Not Reportable Ovalocytes Few Helmet Cells Not Reportable [place] Bodies Not Reportable [place] Rings Not Reportable [place] Cells 3+ Bite Cells Not Reportable Crenated Cell Not Reportable Elliptocytes Not Reportable Acanthocytes (Spur) Not Reportable Rouleaux Not Reportable Hemoglobin C Crystals Not Reportable Schistocytes Not Reportable Malaria parasites Not Reportable Reggie Bodies Not Reportable Hem Pathologist Commnt Sent to pathology Sodium Potassium Chloride Carbon Dioxide Anion Gap BUN Creatinine Estimated GFR BUN/Creatinine Ratio Glucose POC Glucose 312 H Calcium Total Bilirubin AST ALT Alkaline Phosphatase Ammonia Lactate Dehydrogenase Total Protein Albumin Albumin/Globulin Ratio Serotonin Release Assay See scanned result 10/26/18 10/26/18 10/26/18 05:49 06:13 06:13 WBC 12.3 H RBC 3.35 L Hgb 10.2 Hct 32.3 MCV 97 MCH 31 MCHC 32 RDW 16.4 H Plt Count 211 Lymph % (Auto) 8.4 L Dyer % (Auto) 10.7 H Eos % (Auto) 0.2 Baso % (Auto) 0.3 Lymph # 1.0 L Dyer # 1.3 H Eos # 0.0 Baso # 0.0 Add Manual Diff Total Counted Seg Neutrophils % 80.4 H Seg Neuts % (Manual) Band Neutrophils % Lymphocytes % (Manual) Reactive Lymphs % (Man) Monocytes % (Manual) Eosinophils % (Manual) Basophils % (Manual) Metamyelocytes % Myelocytes % Promyelocytes % Blast Cells % Nucleated RBC % Seg Neutrophils # 9.9 H Seg Neutrophils # Man Band Neutrophils # Lymphocytes # (Manual) Abs React Lymphs (Man) Monocytes # (Manual) Eosinophils # (Manual) Basophils # (Manual) Metamyelocytes # Myelocytes # Promyelocytes # Blast Cells # Pathologist Review Hypersegmented Neuts Hyposegmented Neuts Hypogranular Neuts Smudge Cells Toxic Granulation Toxic Vacuolation Dohle Bodies Pelger-Huet Anomaly Rani Rods Platelet Estimate Clumped Platelets Plt Clumps, EDTA Large Platelets Giant Platelets Platelet Satelliting Plt Morphology Comment RBC Morphology Dimorphic RBCs Polychromasia Hypochromasia Poikilocytosis Anisocytosis Microcytosis Macrocytosis Spherocytes Pappenheimer Bodies Sickle Cells Target Cells Tear Drop Cells Ovalocytes Helmet Cells [place] Bodies [place] Cells Bite Cells Crenated Cell Elliptocytes Acanthocytes (Spur) Rouleaux Hemoglobin C Crystals Schistocytes Malaria parasites Reggie Bodies Hem Pathologist Commnt Sodium 136 L Potassium 4.7 Chloride 91.7 L Carbon Dioxide 24 Anion Gap 25 BUN 54 H Creatinine 6.0 H Estimated GFR 9 BUN/Creatinine Ratio 9 Glucose 247 H POC Glucose 246 H Calcium 8.6 Total Bilirubin 0.50 AST 36 ALT 18 Alkaline Phosphatase 251 H Ammonia Lactate Dehydrogenase 458 H Total Protein 5.9 L Albumin 3.0 L Albumin/Globulin Ratio 1.0 Serotonin Release Assay 10/26/18 10/26/18 10/26/18 09:17 15:31 19:36 WBC RBC Hgb Hct MCV MCH MCHC RDW Plt Count Lymph % (Auto) Dyer % (Auto) Eos % (Auto) Baso % (Auto) Lymph # Dyer # Eos # Baso # Add Manual Diff Total Counted Seg Neutrophils % Seg Neuts % (Manual) Band Neutrophils % Lymphocytes % (Manual) Reactive Lymphs % (Man) Monocytes % (Manual) Eosinophils % (Manual) Basophils % (Manual) Metamyelocytes % Myelocytes % Promyelocytes % Blast Cells % Nucleated RBC % Seg Neutrophils # Seg Neutrophils # Man Band Neutrophils # Lymphocytes # (Manual) Abs React Lymphs (Man) Monocytes # (Manual) Eosinophils # (Manual) Basophils # (Manual) Metamyelocytes # Myelocytes # Promyelocytes # Blast Cells # Pathologist Review Hypersegmented Neuts Hyposegmented Neuts Hypogranular Neuts Smudge Cells Toxic Granulation Toxic Vacuolation Dohle Bodies Pelger-Huet Anomaly Rani Rods Platelet Estimate Clumped Platelets Plt Clumps, EDTA Large Platelets Giant Platelets Platelet Satelliting Plt Morphology Comment RBC Morphology Dimorphic RBCs Polychromasia Hypochromasia Poikilocytosis Anisocytosis Microcytosis Macrocytosis Spherocytes Pappenheimer Bodies Sickle Cells Target Cells Tear Drop Cells Ovalocytes Helmet Cells [place] Bodies [place] Cells Bite Cells Crenated Cell Elliptocytes Acanthocytes (Spur) Rouleaux Hemoglobin C Crystals Schistocytes Malaria parasites Reggie Bodies Hem Pathologist Commnt Sodium Potassium Chloride Carbon Dioxide Anion Gap BUN Creatinine Estimated GFR BUN/Creatinine Ratio Glucose POC Glucose 252 H 265 H Calcium Total Bilirubin AST ALT Alkaline Phosphatase Ammonia 28.0 Lactate Dehydrogenase Total Protein Albumin Albumin/Globulin Ratio Serotonin Release Assay 10/27/18 00:37 WBC RBC Hgb Hct MCV MCH MCHC RDW Plt Count Lymph % (Auto) Dyer % (Auto) Eos % (Auto) Baso % (Auto) Lymph # Dyer # Eos # Baso # Add Manual Diff Total Counted Seg Neutrophils % Seg Neuts % (Manual) Band Neutrophils % Lymphocytes % (Manual) Reactive Lymphs % (Man) Monocytes % (Manual) Eosinophils % (Manual) Basophils % (Manual) Metamyelocytes % Myelocytes % Promyelocytes % Blast Cells % Nucleated RBC % Seg Neutrophils # Seg Neutrophils # Man Band Neutrophils # Lymphocytes # (Manual) Abs React Lymphs (Man) Monocytes # (Manual) Eosinophils # (Manual) Basophils # (Manual) Metamyelocytes # Myelocytes # Promyelocytes # Blast Cells # Pathologist Review Hypersegmented Neuts Hyposegmented Neuts Hypogranular Neuts Smudge Cells Toxic Granulation Toxic Vacuolation Dohle Bodies Pelger-Huet Anomaly Rani Rods Platelet Estimate Clumped Platelets Plt Clumps, EDTA Large Platelets Giant Platelets Platelet Satelliting Plt Morphology Comment RBC Morphology Dimorphic RBCs Polychromasia Hypochromasia Poikilocytosis Anisocytosis Microcytosis Macrocytosis Spherocytes Pappenheimer Bodies Sickle Cells Target Cells Tear Drop Cells Ovalocytes Helmet Cells [place] Bodies [place] Marisol Cells Bite Cells Crenated Cell Elliptocytes Acanthocytes (Spur) Rouleaux Hemoglobin C Crystals Schistocytes Malaria parasites Reggie Bodies Hem Pathologist Commnt Sodium Potassium Chloride Carbon Dioxide Anion Gap BUN Creatinine Estimated GFR BUN/Creatinine Ratio Glucose POC Glucose 308 H Calcium Total Bilirubin AST ALT Alkaline Phosphatase Ammonia Lactate Dehydrogenase Total Protein Albumin Albumin/Globulin Ratio Serotonin Release Assay Medications & Allergies - Medications Allergies/Adverse Reactions: Allergies NSAIDS (Non-Steroidal Anti-Inflamma Adverse Reaction (Verified 01/02/17 05:56) Unknown Tetracyclines Adverse Reaction (Verified 09/26/14 12:09) Unknown Home Medications: Home Medications Medication Instructions Recorded Confirmed Last Taken Type Ergocalciferol [Vitamin D2] 50,000 unit PO QWEEK capsule 09/25/16 10/17/18 Unknown Rx Latanoprost 0.005% 1 drop OP QPM 01/02/17 10/17/18 Unknown History Sodium Bicarbonate 325 mg PO DAILY 01/02/17 10/17/18 Unknown History Clopidogrel [Plavix] 75 mg PO DAILY #30 tablet 01/08/17 10/17/18 Unknown Rx Docusate Sodium [Colace CAP] 100 mg PO BID #60 capsule 01/08/17 10/17/18 Unknown Rx Famotidine [Pepcid] 10 mg PO BID #60 tablet 01/08/17 10/17/18 Unknown Rx Gabapentin [Neurontin] 300 mg PO QHS #30 capsule 01/08/17 10/17/18 Unknown Rx Simvastatin [Zocor TAB] 20 mg PO QHS #60 tablet 01/08/17 10/17/18 Unknown Rx glipiZIDE [Glucotrol] 5 mg PO QDDIAB #60 tablet 01/08/17 10/17/18 Unknown Rx hydrALAZINE [Apresoline TAB] 10 mg PO Q8HR #90 tablet 01/08/17 10/17/18 Unknown Rx levETIRAcetam [Keppra TAB] 500 mg PO BID #60 tablet 01/08/17 10/17/18 Unknown Rx Active Medications: Generic Name Dose Route Start Last Admin Trade Name Freq PRN Reason Stop Dose Admin Lipase/Protease/Amylase 1 each 10/25/18 09:[address] 10,500 Unit FEEDTUBE PRN PRN For Clogged Feeding Tube Clopidogrel Bisulfate 75 mg 10/21/18 11:00 10/26/18 14:09 Plavix PO Not Given QDAY ALLEY Docusate Sodium 100 mg 10/24/18 23:45 10/26/18 22:20 Colace FEEDTUBE 100 mg BID ALLEY Administration Ergocalciferol 50,000 unit 10/24/18 10:00 10/24/18 10:42 Vitamin D2 PO 50,000 unit Sa ALLEY Administration Famotidine 20 mg 10/21/18 10:00 10/26/18 14:09 Pepcid PO Not Given DAILY ALLEY Gabapentin 300 mg 10/17/18 22:00 10/26/18 22:20 Neurontin PO 300 mg QHS ALLEY Administration Phenylephrine HCl 100 mg/ 100 mls @ 3 mls/hr 10/23/18 11:30 Sodium Chloride IV TITR ALLEY Protocol 50 MCG/MIN Sodium Chloride 100 mls @ 999 mls/hr 10/25/18 14:52 Nacl 0.9% IV LESLIE PRN Hypotension Insulin Human Lispro 0 unit 10/24/18 12:00 10/27/18 01:28 Humalog SUB-Q 6 unit Q6HR ALLEY Administration Protocol Latanoprost 1 drops 10/17/18 18:00 10/26/18 17:07 Latanoprost 0.005% OU 1 drops QPM ALLEY Administration Levetiracetam 500 mg 10/21/18 10:00 10/26/18 22:20 Keppra PO 500 mg BID ALLEY Administration Simple Syrup 15 ml 10/25/18 09:18 Simple Syrup FEEDTUBE PRN PRN Hypoglycemia Simple Syrup 30 ml 10/25/18 09:18 Simple Syrup FEEDTUBE PRN PRN Hypoglycemia Sodium Bicarbonate 325 mg 10/17/18 17:00 10/26/18 14:09 Sodium Bicarbonate PO Not Given DAILY ALLEY Sodium Bicarbonate 325 mg 10/25/18 09:18 Sodium Bicarbonate FEEDTUBE PRN PRN For Clogged Feeding Tube
--- NOTE | 2018-10-27 10:06 | Cat Scan Report ---
CT HEAD WITHOUT CONTRAST INDICATION : Altered mental status. TECHNIQUE: Axial imaging performed from the skull apex through the skull base without the use of con trast. Sagittal and coronal reformatted images. All CT scans at this location are performed using C T dose reduction for ALARA by means of automated exposure control. COMPARISON: 10/17/2018 FINDINGS: Parenchyma: Late subacute to early chronic infarct in the left frontal lobe measures 5.3 x 2.9 cm in axial plane. Similar appearing infarct in the medial left occipital lobe measures 3.4 x 2.3 cm in ax ial plane. These infarcts appear stable in size and contour. No new areas of acute ischemia are ident ified. No hemorrhage or significant mass effect. Mild diffuse volume loss and chronic white matter ch anges are stable. Ventricles: Ventricles are normal in size and appear symmetric. Bones: No acute osseous abnormality. Sinuses: Sinuses and mastoid air cells are clear. Soft tissues: Soft tissues including the orbits appear normal. IMPRESSION: No acute intracranial process. Evolving ischemic infarcts in the left frontal lobe and le ft occipital lobe as described. Signer Name: Bakari Tobin Jr, MD Signed: 10/27/2018 9:11 AM Workstation Name: [id number]
[2018-10-27] MEDS: COLACE FEEDTUBE SCH ×2 (10:36→21:32)
[2018-10-27] MEDS: PEPCID PO SCH (10:36)
[2018-10-27] MEDS: KEPPRA PO SCH ×2 (10:36→21:32)
[2018-10-27] MEDS: SODIUM BICARBONATE PO SCH (10:36)
[2018-10-27] MEDS: PLAVIX PO SCH (10:36)
--- NOTE | 2018-10-27 11:57 | Progress Note ---
Assessment and Plan Acute CVA, embolic -initiated on plavix (NSAIDS allergy) -EDINSON done reports no cardiac source of emboli and no evidence of endocarditis, LVEF 5-10% Altered mental status Chronic kidney disease initiated on dialysis Elevated liver enzymes -resolved Thrombocytopenia -resolved Hypertension Diabetes Hx of CAD with prior CABG paroxysmal NSVT TSH is normal No ischemia by MPI 04/2016. Normal LVEF 50-55% by echo 09/2016. A repeat echocardiogram revealed right heart enlargement with a severely decreased left ventricular systolic function, EF 10-15%. The duration of this cardiomyopathy is uncertain. Recommend: Continue medical therapy for dilated cardiomyopathy and coronary artery disease as her blood pressure will allow. Conservative cardiac management. Subjective Date of service: 10/27/18 Principal diagnosis: low plt Interval history: No cardiac events reported. Objective Vital Signs Temp Pulse Pulse Resp BP BP Pulse Ox 10/27/18 10:11 100 10/27/18 09:00 98.6 F 88 18 93/59 99 10/27/18 08:17 83 14 98 10/27/18 04:00 98.3 F 83 18 124/70 95 10/27/18 00:00 98.0 F 87 18 107/65 100 10/26/18 20:16 84 10/26/18 19:29 98.2 F 85 18 86/54 100 10/26/18 17:00 84 10/26/18 15:27 98.0 F 83 18 107/62 100 10/26/18 15:00 80 10/26/18 13:39 86 114/73 100 10/26/18 13:00 97.2 F L 84 18 102/60 10/26/18 12:40 84 102/60 10/26/18 12:30 82 92/69 10/26/18 12:15 78 104/67 10/26/18 12:00 81 116/70 - Physical Examination General: No Apparent Distress Cardiac: Positive: Reg Rate and Rhythm Lungs: Positive: Decreased Breath Sounds Neuro: Positive: Weakness, Other (Nonverbal or communicative) Extremities: Absent: edema - Labs and Meds CBC 10/24/18 Range/Units 04:50 WBC 11.0 (4.5-11.0) K/mm3 RBC 3.13 L (3.65-5.03) M/mm3 Hgb 9.7 L (10.1-14.3) gm/dl Hct 30.4 (30.3-42.9) % Plt Count 132 L (140-440) K/mm3 Lymph # Merchandise Flow Manager Mora # Merchandise Flow Manager Eos # Merchandise Flow Manager Baso # Merchandise Flow Manager - Allied health notes Allied health notes reviewed: nursing
--- NOTE | 2018-10-27 12:42 | Progress Note ---
Assessment and Plan Severe renal failure, dependent on HD AG metabolic acidosis Hyperkalemia Metabolic encephalopathy CVA - no indication for HD today - Renal US- negative for obstruction - Renally dose medications - Strict I&O monitoring - Obtain daily weights - Assess dialysis needs daily - Case management onboard for outpatient HD placement to [facility] - Planning to be [facility] [place] Subjective Date of service: 10/27/18 Principal diagnosis: low plt Interval history: does not answer questions, no family at bedside Objective - Vital Signs Vital signs: Vital Signs - 12hr 10/27/18 10/27/18 10/27/18 04:00 08:17 09:00 Temperature 98.3 F 98.6 F Pulse Rate 83 88 Pulse Rate [ 83 Right Popliteal ] Respiratory 18 14 18 Rate Blood Pressure 124/70 93/59 [Left] O2 Sat by Pulse 95 98 99 Oximetry 10/27/18 10:11 Temperature Pulse Rate Pulse Rate [ Right Popliteal ] Respiratory Rate Blood Pressure [Left] O2 Sat by Pulse 100 Oximetry - General Appearance General appearance: well-developed, well-nourished EENT: ATNC, PERRL, mucous membranes dry Neck: no JVD, no carotid bruit Respiratory: Present: Clear to Ascultation. Absent: Rales, Ronchi Cardiology: regular, S1S2 Gastrointestinal: normoactive bowel sounds, no tenderness, no distended Integumentary: no rash, warm and dry Neurologic: no focal deficit, no asterixis, alert and oriented x3 Musculoskeletal: other (no edema in BLE) - Lab 10/26/18 06:13 10/26/18 06:13 Most recent lab results Calcium 8.6 mg/dL (8.4-10.2) 10/26/18 06:13 Phosphorus 5.30 mg/dL (2.5-4.5) H D 10/23/18 05:24 Magnesium 1.70 mg/dL (1.7-2.3) 10/20/18 12:22 196.7 mg/dL (0.1-20.0) H 10/21/18 18:19 12 mmol/L 10/17/18 13:34 191 mg/dL (5-11.8) H 10/17/18 13:16 Medications & Allergies - Medications Allergies/Adverse Reactions: Allergies NSAIDS (Non-Steroidal Anti-Inflamma Adverse Reaction (Verified 01/02/17 05:56) Unknown Tetracyclines Adverse Reaction (Verified 09/26/14 12:09) Unknown Home Medications: Home Medications Medication Instructions Recorded Confirmed Last Taken Type Ergocalciferol [Vitamin D2] 50,000 unit PO QWEEK capsule 09/25/16 10/17/18 Unknown Rx Latanoprost 0.005% 1 drop OP QPM 01/02/17 10/17/18 Unknown History Sodium Bicarbonate 325 mg PO DAILY 01/02/17 10/17/18 Unknown History Clopidogrel [Plavix] 75 mg PO DAILY #30 tablet 01/08/17 10/17/18 Unknown Rx Docusate Sodium [Colace CAP] 100 mg PO BID #60 capsule 01/08/17 10/17/18 Unknown Rx Famotidine [Pepcid] 10 mg PO BID #60 tablet 01/08/17 10/17/18 Unknown Rx Gabapentin [Neurontin] 300 mg PO QHS #30 capsule 01/08/17 10/17/18 Unknown Rx Simvastatin [Zocor TAB] 20 mg PO QHS #60 tablet 01/08/17 10/17/18 Unknown Rx glipiZIDE [Glucotrol] 5 mg PO QDDIAB #60 tablet 01/08/17 10/17/18 Unknown Rx hydrALAZINE [Apresoline TAB] 10 mg PO Q8HR #90 tablet 01/08/17 10/17/18 Unknown Rx levETIRAcetam [Keppra TAB] 500 mg PO BID #60 tablet 01/08/17 10/17/18 Unknown Rx Active Medications: Generic Name Dose Route Start Last Admin Trade Name Freq PRN Reason Stop Dose Admin Lipase/Protease/Amylase 1 each 10/25/18 09:[address] 10,500 Unit FEEDTUBE PRN PRN For Clogged Feeding Tube Clopidogrel Bisulfate 75 mg 10/21/18 11:00 10/27/18 10:36 Plavix PO 75 mg QDAY ALLEY Administration Docusate Sodium 100 mg 10/24/18 23:45 10/27/18 10:36 Colace FEEDTUBE 100 mg BID ALLEY Administration Ergocalciferol 50,000 unit 10/24/18 10:00 10/24/18 10:42 Vitamin D2 PO 50,000 unit Sa ALLEY Administration Famotidine 20 mg 10/21/18 10:00 10/27/18 10:36 Pepcid PO 20 mg DAILY ALLEY Administration Gabapentin 300 mg 10/17/18 22:00 10/26/18 22:20 Neurontin PO 300 mg QHS ALLEY Administration Sodium Chloride 100 mls @ 999 mls/hr 10/25/18 14:52 Nacl 0.9% IV LESLIE PRN Hypotension Insulin Human Lispro 0 unit 10/24/18 12:00 10/27/18 11:54 Humalog SUB-Q 6 unit Q6HR ALLEY Administration Protocol Latanoprost 1 drops 10/17/18 18:00 10/26/18 17:07 Latanoprost 0.005% OU 1 drops QPM ALLEY Administration Levetiracetam 500 mg 10/21/18 10:00 10/27/18 10:36 Keppra PO 500 mg BID ALLEY Administration Simple Syrup 15 ml 10/25/18 09:18 Simple Syrup FEEDTUBE PRN PRN Hypoglycemia Simple Syrup 30 ml 10/25/18 09:18 Simple Syrup FEEDTUBE PRN PRN Hypoglycemia Sodium Bicarbonate 325 mg 10/17/18 17:00 10/27/18 10:36 Sodium Bicarbonate PO 325 mg DAILY ALLEY Administration Sodium Bicarbonate 325 mg 10/25/18 09:18 Sodium Bicarbonate FEEDTUBE PRN PRN For Clogged Feeding Tube
--- NOTE | 2018-10-27 13:54 | Progress Note ---
Assessment and Plan Pt sleeping not responding to verbal stimuli. Pt is on 2L O2 saturation 98%. No acute respiratory distress. Patient febrile with mild leukocytosis. - Patient Problems (1) Pneumonia Current Visit: Yes Status: Acute Plan to address problem: Chest Xray reported increasing right basilar effusion/volume loss Recommend blood cultures and start on antibiotics (2) Acute CVA (cerebrovascular accident) Current Visit: Yes Status: Acute Plan to address problem: management as per neurology (3) Acute encephalopathy Current Visit: Yes Status: Acute Plan to address problem: management as per primary care (4) Acute on chronic renal failure Current Visit: Yes Status: Acute Qualifiers: Acute renal failure type: with acute tubular necrosis Chronic kidney disease stage: stage 5, not on chronic dialysis Qualified Code(s): N17.0 - Acute kidney failure with tubular necrosis; N18.5 - Chronic kidney disease, stage 5 Plan to address problem: management as per nephrology (5) Hypertension Current Visit: Yes Status: Chronic Qualifiers: Hypertension type: essential hypertension Qualified Code(s): I10 - Essential (primary) hypertension Plan to address problem: management as per primary care (6) Seizure disorder Current Visit: Yes Status: Chronic Plan to address problem: management as per primary (7) Diabetes mellitus Current Visit: No Status: Acute Plan to address problem: management as per primary (8) Bilateral pleural effusion Current Visit: Yes Status: Acute Plan to address problem: Recommend ultrasound of the chest Subjective Date of service: 10/27/18 Principal diagnosis: low plt Interval history: Pt sleeping not responding to verbal stimuli. Pt is on 2L O2 saturation 98%. No acute respiratory distress. Patient afebrile with mild leukocytosis. Objective Vital Signs - 12hr 10/27/18 10/27/18 10/27/18 03:32 04:00 08:17 Temperature 98.3 F 98.3 F Pulse Rate 84 83 Pulse Rate [ 83 Right Popliteal ] Respiratory 18 18 14 Rate Blood Pressure 96/62 Blood Pressure 124/70 [Left] O2 Sat by Pulse 100 95 98 Oximetry 10/27/18 10/27/18 10/27/18 08:58 09:00 10:11 Temperature 98.6 F 98.6 F Pulse Rate 83 88 Pulse Rate [ Right Popliteal ] Respiratory 18 18 Rate Blood Pressure 93/59 Blood Pressure 93/59 [Left] O2 Sat by Pulse 99 99 100 Oximetry 10/27/18 10/27/18 13:16 13:19 Temperature 97.9 F 97.9 F Pulse Rate 88 Pulse Rate [ Right Popliteal ] Respiratory 18 18 Rate Blood Pressure 106/67 Blood Pressure [Left] O2 Sat by Pulse 98 Oximetry Constitutional: no acute distress, asleep Eyes: non-icteric ENT: oropharynx moist Neck: supple, no lymphadenopathy Ascultation: Bilateral: clear Cardiovascular: regular rate and rhythm Gastrointestinal: normoactive bowel sounds, soft, non-tender Integumentary: normal Neurologic: other (patient sleeping) Psychiatric: other (patient sleeping) CBC and BMP: 10/26/18 06:13 10/26/18 06:13 ABG, PT/INR, D-dimer: ABG POC ABG pH 7.436 (7.35-7.45) 10/23/18 20:51 POC ABG pCO2 34.3 (35-45) L 10/23/18 20:51 POC ABG pO2 95 (80-105) 10/23/18 20:51 POC ABG HCO3 23.1 (22-26 mml/L) 10/23/18 20:51 POC ABG Total CO2 24 (23-27mmol/L) 10/23/18 20:51 POC ABG O2 Sat 98 10/23/18 20:51 PT/INR, D-dimer PT 20.6 Sec. (12.2-14.9) H 10/17/18 10:19 INR 1.81 (0.87-1.13) H 10/17/18 10:19 Abnormal lab findings: Abnormal Labs 10/17/18 10/17/18 10/17/18 10:16 10:19 10:19 WBC RBC Hgb Hct MCV RDW Plt Count Lymph % (Auto) 9.5 L [place] % (Auto) Lymph # 1.0 L [place] # Seg Neutrophils % 84.7 H Seg Neuts % (Manual) Lymphocytes % (Manual) Monocytes % (Manual) Nucleated RBC % Seg Neutrophils # 8.7 H Seg Neutrophils # Man Lymphocytes # (Manual) PT 20.6 H INR 1.81 H POC ABG pH POC ABG pCO2 POC ABG pO2 Sodium Potassium Chloride Carbon Dioxide BUN Creatinine Glucose POC Glucose 277 H Calcium Phosphorus TIBC Ferritin AST ALT Alkaline Phosphatase Lactate Dehydrogenase Total Creatine Kinase Troponin T C-Reactive Protein Serum Total Protein Total Protein Albumin Aslqd-1-Gybxnqkjb PEP Interpretation HDL Cholesterol Vitamin B12 Urine Creatinine Ur Creatinine 24 Hour Urine Total Protein Salicylates Acetaminophen 10/17/18 10/17/18 10/17/18 13:14 13:16 13:34 WBC RBC Hgb Hct MCV RDW Plt Count Lymph % (Auto) [place] % (Auto) Lymph # [place] # Seg Neutrophils % Seg Neuts % (Manual) Lymphocytes % (Manual) Monocytes % (Manual) Nucleated RBC % Seg Neutrophils # Seg Neutrophils # Man Lymphocytes # (Manual) PT INR POC ABG pH POC ABG pCO2 POC ABG pO2 Sodium Potassium Chloride Carbon Dioxide BUN Creatinine Glucose POC Glucose 330 H Calcium Phosphorus TIBC Ferritin AST ALT Alkaline Phosphatase Lactate Dehydrogenase Total Creatine Kinase Troponin T C-Reactive Protein Serum Total Protein Total Protein Albumin Ekepe-7-Cwcogvdtg PEP Interpretation HDL Cholesterol Vitamin B12 Urine Creatinine 276.0 H 271.1 H Ur Creatinine 24 Hour Urine Total Protein 191 H Salicylates Acetaminophen 10/17/18 10/17/18 10/17/18 15:15 21:03 Unknown WBC RBC Hgb Hct MCV RDW Plt Count Lymph % (Auto) [place] % (Auto) Lymph # [place] # Seg Neutrophils % Seg Neuts % (Manual) Lymphocytes % (Manual) Monocytes % (Manual) Nucleated RBC % Seg Neutrophils # Seg Neutrophils # Man Lymphocytes # (Manual) PT INR POC ABG pH POC ABG pCO2 POC ABG pO2 Sodium Potassium 6.6 H* Chloride Carbon Dioxide 10 L BUN 111 H Creatinine 6.5 H Glucose 351 H POC Glucose 143 H Calcium Phosphorus TIBC Ferritin AST ALT Alkaline Phosphatase Lactate Dehydrogenase Total Creatine Kinase 3216 H Troponin T 4.720 H* C-Reactive Protein Serum Total Protein Total Protein Albumin Fytnz-0-Rbzqfmbqp PEP Interpretation HDL Cholesterol 88 H Vitamin B12 Urine Creatinine Ur Creatinine 24 Hour Urine Total Protein Salicylates Acetaminophen 10/17/18 10/17/18 10/18/18 Unknown Unknown 07:29 WBC RBC Hgb Hct MCV RDW Plt Count Lymph % (Auto) [place] % (Auto) Lymph # [place] # Seg Neutrophils % Seg Neuts % (Manual) Lymphocytes % (Manual) Monocytes % (Manual) Nucleated RBC % Seg Neutrophils # Seg Neutrophils # Man Lymphocytes # (Manual) PT INR POC ABG pH POC ABG pCO2 POC ABG pO2 Sodium Potassium Chloride Carbon Dioxide BUN Creatinine Glucose POC Glucose 120 H Calcium Phosphorus TIBC Ferritin AST ALT Alkaline Phosphatase Lactate Dehydrogenase Total Creatine Kinase Troponin T C-Reactive Protein Serum Total Protein Total Protein Albumin Bkkcr-7-Vwplbszis PEP Interpretation HDL Cholesterol Vitamin B12 Urine Creatinine Ur Creatinine 24 Hour Urine Total Protein Salicylates < 0.3 L Acetaminophen < 5.0 L 10/18/18 10/18/18 10/18/18 09:09 09:09 12:21 WBC RBC 3.28 L Hgb Hct MCV RDW Plt Count 125 L Lymph % (Auto) 13.2 L [place] % (Auto) Lymph # 1.1 L [place] # Seg Neutrophils % 80.7 H Seg Neuts % (Manual) Lymphocytes % (Manual) Monocytes % (Manual) Nucleated RBC % Seg Neutrophils # Seg Neutrophils # Man Lymphocytes # (Manual) PT INR POC ABG pH POC ABG pCO2 POC ABG pO2 Sodium Potassium Chloride 97.9 L Carbon Dioxide 20 L D BUN 38 H Creatinine 3.2 H D Glucose 207 H POC Glucose 180 H Calcium Phosphorus TIBC Ferritin AST ALT Alkaline Phosphatase Lactate Dehydrogenase Total Creatine Kinase Troponin T C-Reactive Protein Serum Total Protein Total Protein Albumin Urvru-1-Cgjexxxbc PEP Interpretation HDL Cholesterol Vitamin B12 Urine Creatinine Ur Creatinine 24 Hour Urine Total Protein Salicylates Acetaminophen 10/18/18 10/18/18 10/19/18 17:14 20:50 05:20 WBC RBC 3.46 L Hgb Hct MCV 98 H RDW 16.4 H Plt Count 55 L Lymph % (Auto) [place] % (Auto) Lymph # [place] # Seg Neutrophils % Seg Neuts % (Manual) Lymphocytes % (Manual) Monocytes % (Manual) 9.0 H Nucleated RBC % 4.0 H Seg Neutrophils # Seg Neutrophils # Man Lymphocytes # (Manual) PT INR POC ABG pH POC ABG pCO2 POC ABG pO2 Sodium Potassium Chloride Carbon Dioxide BUN Creatinine Glucose POC Glucose 256 H 335 H Calcium Phosphorus TIBC Ferritin AST ALT Alkaline Phosphatase Lactate Dehydrogenase Total Creatine Kinase Troponin T C-Reactive Protein Serum Total Protein Total Protein Albumin Wybql-9-Rrvilwxzc PEP Interpretation HDL Cholesterol Vitamin B12 Urine Creatinine Ur Creatinine 24 Hour Urine Total Protein Salicylates Acetaminophen 10/19/18 10/19/18 10/19/18 05:20 08:34 08:34 WBC RBC Hgb Hct MCV RDW Plt Count Lymph % (Auto) [place] % (Auto) Lymph # [place] # Seg Neutrophils % Seg Neuts % (Manual) Lymphocytes % (Manual) Monocytes % (Manual) Nucleated RBC % Seg Neutrophils # Seg Neutrophils # Man Lymphocytes # (Manual) PT INR POC ABG pH POC ABG pCO2 POC ABG pO2 Sodium Potassium Chloride Carbon Dioxide 21 L BUN 52 H Creatinine 4.2 H Glucose 106 H POC Glucose Calcium Phosphorus TIBC 193 L Ferritin 2450.0 H AST ALT Alkaline Phosphatase Lactate Dehydrogenase 892 H Total Creatine Kinase Troponin T C-Reactive Protein Serum Total Protein Total Protein Albumin Zkjcb-0-Mxrlbqhrk PEP Interpretation HDL Cholesterol Vitamin B12 Urine Creatinine Ur Creatinine 24 Hour Urine Total Protein Salicylates Acetaminophen 10/19/18 10/19/18 10/19/18 08:34 09:06 13:41 WBC RBC Hgb Hct MCV RDW Plt Count Lymph % (Auto) [place] % (Auto) Lymph # [place] # Seg Neutrophils % Seg Neuts % (Manual) Lymphocytes % (Manual) Monocytes % (Manual) Nucleated RBC % Seg Neutrophils # Seg Neutrophils # Man Lymphocytes # (Manual) PT INR POC ABG pH POC ABG pCO2 POC ABG pO2 Sodium Potassium Chloride Carbon Dioxide BUN Creatinine Glucose POC Glucose 141 H 156 H Calcium Phosphorus TIBC Ferritin AST ALT Alkaline Phosphatase Lactate Dehydrogenase Total Creatine Kinase Troponin T C-Reactive Protein Serum Total Protein Total Protein Albumin Qenyv-9-Repmkylnq PEP Interpretation HDL Cholesterol Vitamin B12 1296 H Urine Creatinine Ur Creatinine 24 Hour Urine Total Protein Salicylates Acetaminophen 10/19/18 10/19/18 10/20/18 15:53 22:51 05:07 WBC RBC 3.23 L Hgb 10.0 L Hct MCV RDW 15.7 H Plt Count 111 L D Lymph % (Auto) [place] % (Auto) 8.0 H Lymph # [place] # Seg Neutrophils % Seg Neuts % (Manual) Lymphocytes % (Manual) Monocytes % (Manual) Nucleated RBC % Seg Neutrophils # Seg Neutrophils # Man Lymphocytes # (Manual) PT INR POC ABG pH POC ABG pCO2 POC ABG pO2 Sodium Potassium Chloride Carbon Dioxide BUN Creatinine Glucose POC Glucose 193 H 228 H Calcium Phosphorus TIBC Ferritin AST ALT Alkaline Phosphatase Lactate Dehydrogenase Total Creatine Kinase Troponin T C-Reactive Protein Serum Total Protein Total Protein Albumin Hacpw-9-Bvgdvedke PEP Interpretation HDL Cholesterol Vitamin B12 Urine Creatinine Ur Creatinine 24 Hour Urine Total Protein Salicylates Acetaminophen 10/20/18 10/20/18 10/20/18 05:07 05:07 10:44 WBC RBC Hgb Hct MCV RDW Plt Count Lymph % (Auto) [place] % (Auto) Lymph # [place] # Seg Neutrophils % Seg Neuts % (Manual) Lymphocytes % (Manual) Monocytes % (Manual) Nucleated RBC % Seg Neutrophils # Seg Neutrophils # Man Lymphocytes # (Manual) PT INR POC ABG pH POC ABG pCO2 POC ABG pO2 Sodium Potassium Chloride Carbon Dioxide BUN 32 H Creatinine 3.2 H Glucose 177 H POC Glucose 160 H Calcium 8.0 L Phosphorus TIBC Ferritin AST 305 H ALT 728 H Alkaline Phosphatase 402 H Lactate Dehydrogenase Total Creatine Kinase Troponin T C-Reactive Protein Serum Total Protein 5.5 L Total Protein 6.0 L Albumin 2.9 L 2.7 L Ytqgp-4-Slckpotoa 0.4 H PEP Interpretation see below H HDL Cholesterol Vitamin B12 Urine Creatinine Ur Creatinine 24 Hour Urine Total Protein Salicylates Acetaminophen 10/20/18 10/20/18 10/20/18 13:45 17:19 20:44 WBC RBC Hgb Hct MCV RDW Plt Count Lymph % (Auto) [place] % (Auto) Lymph # [place] # Seg Neutrophils % Seg Neuts % (Manual) Lymphocytes % (Manual) Monocytes % (Manual) Nucleated RBC % Seg Neutrophils # Seg Neutrophils # Man Lymphocytes # (Manual) PT INR POC ABG pH POC ABG pCO2 POC ABG pO2 Sodium Potassium Chloride Carbon Dioxide BUN Creatinine Glucose POC Glucose 143 H 234 H Calcium Phosphorus TIBC Ferritin AST ALT Alkaline Phosphatase Lactate Dehydrogenase Total Creatine Kinase Troponin T C-Reactive Protein Serum Total Protein Total Protein Albumin Dtkcb-7-Izmmwbfdg PEP Interpretation HDL Cholesterol Vitamin B12 Urine Creatinine 157.6 H Ur Creatinine 24 Hour Urine Total Protein Salicylates Acetaminophen 10/21/18 10/21/18 10/21/18 05:57 05:57 07:55 WBC RBC 3.16 L Hgb 10.0 L Hct 29.9 L MCV RDW 15.4 H Plt Count 125 L Lymph % (Auto) [place] % (Auto) 9.6 H Lymph # [place] # Seg Neutrophils % 71.3 H Seg Neuts % (Manual) Lymphocytes % (Manual) Monocytes % (Manual) Nucleated RBC % Seg Neutrophils # Seg Neutrophils # Man Lymphocytes # (Manual) PT INR POC ABG pH POC ABG pCO2 POC ABG pO2 Sodium Potassium Chloride Carbon Dioxide BUN 47 H Creatinine 4.9 H D Glucose 229 H POC Glucose 239 H Calcium 8.0 L Phosphorus TIBC Ferritin AST ALT Alkaline Phosphatase Lactate Dehydrogenase Total Creatine Kinase Troponin T C-Reactive Protein Serum Total Protein Total Protein Albumin Yvjlv-7-Viilqfrwd PEP Interpretation HDL Cholesterol Vitamin B12 Urine Creatinine Ur Creatinine 24 Hour Urine Total Protein Salicylates Acetaminophen 10/21/18 10/21/18 10/21/18 12:05 15:40 18:19 WBC RBC Hgb Hct MCV RDW Plt Count Lymph % (Auto) [place] % (Auto) Lymph # [place] # Seg Neutrophils % Seg Neuts % (Manual) Lymphocytes % (Manual) Monocytes % (Manual) Nucleated RBC % Seg Neutrophils # Seg Neutrophils # Man Lymphocytes # (Manual) PT INR POC ABG pH POC ABG pCO2 POC ABG pO2 Sodium Potassium Chloride Carbon Dioxide BUN Creatinine Glucose POC Glucose 446 H 263 H Calcium Phosphorus TIBC Ferritin AST ALT Alkaline Phosphatase Lactate Dehydrogenase Total Creatine Kinase Troponin T C-Reactive Protein Serum Total Protein Total Protein Albumin Rzhdv-0-Npbvkyqep PEP Interpretation HDL Cholesterol Vitamin B12 Urine Creatinine 196.7 H Ur Creatinine 24 Hour 0.1 L Urine Total Protein Salicylates Acetaminophen 10/22/18 10/22/18 10/22/18 00:45 06:24 06:24 WBC RBC 3.17 L Hgb 9.9 L Hct MCV RDW 15.7 H Plt Count 134 L Lymph % (Auto) [place] % (Auto) Lymph # [place] # Seg Neutrophils % Seg Neuts % (Manual) 78.0 H Lymphocytes % (Manual) Monocytes % (Manual) Nucleated RBC % Seg Neutrophils # Seg Neutrophils # Man 8.3 H Lymphocytes # (Manual) PT INR POC ABG pH POC ABG pCO2 POC ABG pO2 Sodium Potassium Chloride Carbon Dioxide BUN 33 H Creatinine 3.9 H Glucose 171 H POC Glucose 179 H Calcium Phosphorus TIBC Ferritin AST ALT Alkaline Phosphatase Lactate Dehydrogenase Total Creatine Kinase Troponin T C-Reactive Protein Serum Total Protein Total Protein Albumin Dpgix-8-Mdqclcaae PEP Interpretation HDL Cholesterol Vitamin B12 Urine Creatinine Ur Creatinine 24 Hour Urine Total Protein Salicylates Acetaminophen 10/22/18 10/22/18 10/22/18 12:47 18:33 21:58 WBC RBC Hgb Hct MCV RDW Plt Count Lymph % (Auto) [place] % (Auto) Lymph # [place] # Seg Neutrophils % Seg Neuts % (Manual) Lymphocytes % (Manual) Monocytes % (Manual) Nucleated RBC % Seg Neutrophils # Seg Neutrophils # Man Lymphocytes # (Manual) PT INR POC ABG pH POC ABG pCO2 POC ABG pO2 Sodium Potassium Chloride Carbon Dioxide BUN Creatinine Glucose POC Glucose 210 H 176 H 230 H Calcium Phosphorus TIBC Ferritin AST ALT Alkaline Phosphatase Lactate Dehydrogenase Total Creatine Kinase Troponin T C-Reactive Protein Serum Total Protein Total Protein Albumin Nyyea-4-Nlmnzavub PEP Interpretation HDL Cholesterol Vitamin B12 Urine Creatinine Ur Creatinine 24 Hour Urine Total Protein Salicylates Acetaminophen 10/23/18 10/23/18 10/23/18 05:24 05:24 07:31 WBC RBC 3.49 L Hgb Hct MCV RDW 16.7 H Plt Count Lymph % (Auto) [place] % (Auto) Lymph # [place] # Seg Neutrophils % Seg Neuts % (Manual) 88.0 H Lymphocytes % (Manual) 6.0 L Monocytes % (Manual) Nucleated RBC % Seg Neutrophils # Seg Neutrophils # Man 9.3 H Lymphocytes # (Manual) 0.6 L PT INR POC ABG pH POC ABG pCO2 POC ABG pO2 Sodium Potassium Chloride Carbon Dioxide BUN 49 H Creatinine 5.0 H Glucose 211 H POC Glucose 137 H Calcium Phosphorus 5.30 H D TIBC Ferritin AST ALT Alkaline Phosphatase Lactate Dehydrogenase Total Creatine Kinase Troponin T C-Reactive Protein Serum Total Protein Total Protein Albumin Dinch-7-Yugytaaqm PEP Interpretation HDL Cholesterol Vitamin B12 Urine Creatinine Ur Creatinine 24 Hour Urine Total Protein Salicylates Acetaminophen 10/23/18 10/23/18 10/23/18 11:51 14:59 18:29 WBC RBC Hgb Hct MCV RDW Plt Count Lymph % (Auto) [place] % (Auto) Lymph # [place] # Seg Neutrophils % Seg Neuts % (Manual) Lymphocytes % (Manual) Monocytes % (Manual) Nucleated RBC % Seg Neutrophils # Seg Neutrophils # Man Lymphocytes # (Manual) PT INR POC ABG pH 7.346 L POC ABG pCO2 POC ABG pO2 116 H Sodium Potassium Chloride Carbon Dioxide BUN Creatinine Glucose POC Glucose 182 H Calcium Phosphorus TIBC Ferritin AST ALT Alkaline Phosphatase Lactate Dehydrogenase Total Creatine Kinase Troponin T C-Reactive Protein 24.10 H Serum Total Protein Total Protein Albumin Prykx-1-Jrqfxgfsv PEP Interpretation HDL Cholesterol Vitamin B12 Urine Creatinine Ur Creatinine 24 Hour Urine Total Protein Salicylates Acetaminophen 10/23/18 10/23/18 10/24/18 20:51 23:37 04:50 WBC RBC 3.13 L Hgb 9.7 L Hct MCV RDW 16.8 H Plt Count 132 L Lymph % (Auto) [place] % (Auto) Lymph # [place] # Seg Neutrophils % Seg Neuts % (Manual) 79.0 H Lymphocytes % (Manual) 11.0 L Monocytes % (Manual) Nucleated RBC % Seg Neutrophils # Seg Neutrophils # Man 8.7 H Lymphocytes # (Manual) PT INR POC ABG pH POC ABG pCO2 34.3 L POC ABG pO2 Sodium Potassium Chloride Carbon Dioxide BUN Creatinine Glucose POC Glucose 232 H Calcium Phosphorus TIBC Ferritin AST ALT Alkaline Phosphatase Lactate Dehydrogenase Total Creatine Kinase Troponin T C-Reactive Protein Serum Total Protein Total Protein Albumin Gbjmg-8-Nwwiqgluu PEP Interpretation HDL Cholesterol Vitamin B12 Urine Creatinine Ur Creatinine 24 Hour Urine Total Protein Salicylates Acetaminophen 10/24/18 10/24/18 10/24/18 04:50 07:44 11:52 WBC RBC Hgb Hct MCV RDW Plt Count Lymph % (Auto) [place] % (Auto) Lymph # [place] # Seg Neutrophils % Seg Neuts % (Manual) Lymphocytes % (Manual) Monocytes % (Manual) Nucleated RBC % Seg Neutrophils # Seg Neutrophils # Man Lymphocytes # (Manual) PT INR POC ABG pH POC ABG pCO2 POC ABG pO2 Sodium 136 L Potassium Chloride 94.6 L Carbon Dioxide BUN 25 H Creatinine 3.3 H Glucose 214 H POC Glucose 219 H 290 H Calcium Phosphorus TIBC Ferritin AST ALT Alkaline Phosphatase Lactate Dehydrogenase Total Creatine Kinase Troponin T C-Reactive Protein Serum Total Protein Total Protein Albumin Gbhel-6-Mrqttcblq PEP Interpretation HDL Cholesterol Vitamin B12 Urine Creatinine Ur Creatinine 24 Hour Urine Total Protein Salicylates Acetaminophen 10/24/18 10/24/18 10/25/18 18:25 21:12 06:29 WBC RBC Hgb Hct MCV RDW Plt Count Lymph % (Auto) [place] % (Auto) Lymph # [place] # Seg Neutrophils % Seg Neuts % (Manual) Lymphocytes % (Manual) Monocytes % (Manual) Nucleated RBC % Seg Neutrophils # Seg Neutrophils # Man Lymphocytes # (Manual) PT INR POC ABG pH POC ABG pCO2 POC ABG pO2 Sodium Potassium Chloride Carbon Dioxide BUN Creatinine Glucose POC Glucose 113 H 123 H 208 H Calcium Phosphorus TIBC Ferritin AST ALT Alkaline Phosphatase Lactate Dehydrogenase Total Creatine Kinase Troponin T C-Reactive Protein Serum Total Protein Total Protein Albumin Msprq-4-Glydtsdhg PEP Interpretation HDL Cholesterol Vitamin B12 Urine Creatinine Ur Creatinine 24 Hour Urine Total Protein Salicylates Acetaminophen 10/25/18 10/25/18 10/25/18 11:31 12:28 16:16 WBC RBC Hgb Hct MCV RDW Plt Count Lymph % (Auto) [place] % (Auto) Lymph # [place] # Seg Neutrophils % Seg Neuts % (Manual) Lymphocytes % (Manual) Monocytes % (Manual) Nucleated RBC % Seg Neutrophils # Seg Neutrophils # Man Lymphocytes # (Manual) PT INR POC ABG pH POC ABG pCO2 POC ABG pO2 Sodium Potassium Chloride 94.1 L Carbon Dioxide BUN 42 H Creatinine 4.8 H Glucose 192 H POC Glucose 225 H 228 H Calcium Phosphorus TIBC Ferritin AST ALT Alkaline Phosphatase Lactate Dehydrogenase Total Creatine Kinase Troponin T C-Reactive Protein Serum Total Protein Total Protein Albumin Uuxqu-0-Ybtaazpfm PEP Interpretation HDL Cholesterol Vitamin B12 Urine Creatinine Ur Creatinine 24 Hour Urine Total Protein Salicylates Acetaminophen 10/25/18 10/26/18 10/26/18 23:38 05:49 06:13 WBC 12.3 H RBC 3.35 L Hgb Hct MCV RDW 16.4 H Plt Count Lymph % (Auto) 8.4 L [place] % (Auto) 10.7 H Lymph # 1.0 L [place] # 1.3 H Seg Neutrophils % 80.4 H Seg Neuts % (Manual) Lymphocytes % (Manual) Monocytes % (Manual) Nucleated RBC % Seg Neutrophils # 9.9 H Seg Neutrophils # Man Lymphocytes # (Manual) PT INR POC ABG pH POC ABG pCO2 POC ABG pO2 Sodium Potassium Chloride Carbon Dioxide BUN Creatinine Glucose POC Glucose 312 H 246 H Calcium Phosphorus TIBC Ferritin AST ALT Alkaline Phosphatase Lactate Dehydrogenase Total Creatine Kinase Troponin T C-Reactive Protein Serum Total Protein Total Protein Albumin Vzcai-0-Zjytgemfh PEP Interpretation HDL Cholesterol Vitamin B12 Urine Creatinine Ur Creatinine 24 Hour Urine Total Protein Salicylates Acetaminophen 10/26/18 10/26/18 10/26/18 06:13 09:17 15:31 WBC RBC Hgb Hct MCV RDW Plt Count Lymph % (Auto) [place] % (Auto) Lymph # [place] # Seg Neutrophils % Seg Neuts % (Manual) Lymphocytes % (Manual) Monocytes % (Manual) Nucleated RBC % Seg Neutrophils # Seg Neutrophils # Man Lymphocytes # (Manual) PT INR POC ABG pH POC ABG pCO2 POC ABG pO2 Sodium 136 L Potassium Chloride 91.7 L Carbon Dioxide BUN 54 H Creatinine 6.0 H Glucose 247 H POC Glucose 252 H 265 H Calcium Phosphorus TIBC Ferritin AST ALT Alkaline Phosphatase 251 H Lactate Dehydrogenase 458 H Total Creatine Kinase Troponin T C-Reactive Protein Serum Total Protein Total Protein 5.9 L Albumin 3.0 L Wmlod-6-Lifkqscqp PEP Interpretation HDL Cholesterol Vitamin B12 Urine Creatinine Ur Creatinine 24 Hour Urine Total Protein Salicylates Acetaminophen 10/27/18 00:37 WBC RBC Hgb Hct MCV RDW Plt Count Lymph % (Auto) [place] % (Auto) Lymph # [place] # Seg Neutrophils % Seg Neuts % (Manual) Lymphocytes % (Manual) Monocytes % (Manual) Nucleated RBC % Seg Neutrophils # Seg Neutrophils # Man Lymphocytes # (Manual) PT INR POC ABG pH POC ABG pCO2 POC ABG pO2 Sodium Potassium Chloride Carbon Dioxide BUN Creatinine Glucose POC Glucose 308 H Calcium Phosphorus TIBC Ferritin AST ALT Alkaline Phosphatase Lactate Dehydrogenase Total Creatine Kinase Troponin T C-Reactive Protein Serum Total Protein Total Protein Albumin Enorl-7-Fnvqpqylu PEP Interpretation HDL Cholesterol Vitamin B12 Urine Creatinine Ur Creatinine 24 Hour Urine Total Protein Salicylates Acetaminophen Chest x-ray: report reviewed, image reviewed Additional Studies: Chest XRAY 10/26/18: FINDINGS: Support devices: Unchanged. Heart: Stable cardiomegaly. Lungs/Pleura: Left basilar effusion/volume loss is unchanged. There is increasing right basilar effusion/volume loss. Negative for patchy infiltrate. Additional findings: None. IMPRESSION: Increasing right basilar effusion/volume loss. Allied health notes reviewed: nursing
--- NOTE | 2018-10-27 15:40 | Progress Note ---
Assessment and Plan Assessment and plan: Patient is a 63 yo woman with hypertension, dm type 2, gerd, cva, dementia, cad s/p cabg, seizure disorder, OA and CKD 4 (last Cr here was 2.2 on 01/08/2017) who presented to [facility] ED with AMS x 3 days. She was admitted for severe renal failure/uremic encephalopathy with hyperkalemia. Creatinine was found to be 5.6. She underwent emergent Hemodialysis * CT head without contrast IMPRESSION: 1. Recent infarcts in the left MCA and left [employer] territories. Although there is no volume loss associated with [employer] infarct, the hypoattenuation of the parenchyma and loss of laboy-white differentiation is more conspicuous, suggesting this may be an older infarct. 2. No acute hemorrhage. Report of these findings was called to Dr. Novak in the emergency department at the time of dictation. * pCXR Impression: Increasing right basilar effusion/volume loss Acute metabolic encephalopathy, poa:work up in process ARF/CKD 4 vasomotor +ATN: hemodialysis started Hyperkalemia: treated with HD, Premises Technician following, monitor bmp closely Acute CVA suspected: MRI reviewed Glaucoma: continue latanoprost eyedrops Vitamin D deficiency: Continue vitamin D Hyperlipidemia: Continue statins Peripheral neuropathy: Continue gabapentin Seizure disorder: Continue Keppra Hypertension: Continue antihypertensives DVT prophylaxis: heparin and GI prophylaxis Disposition: continue inpatient care, was going to SNF but spiked a temp of 101 F on 10/26/18 at 0438 am, this is her second temperature spike, first temp was 10/24/18 @ 0800am of 100.8F. repeat Blood cultures pending, pCXR Impression: Increasing right basilar effusion/volume loss, UA not done because she doesn't make enough urine, She still has thomas and NGT in place. Will consult ID because patient does have a line History Interval history: Patient was seen and examined. Follow-up on current diagnosis. No overnight events reported to me. Patient denies any chest pain, shortness breath, nausea/vomiting or severe headaches. Imaging, nursing note, chart, labs and old chart reviewed. Discussed with patient. Hospitalist Physical - Physical exam Narrative exam: Gen: ill appearing, chronically disable appearing, lethargic but arousable HEENT: NCAT, EOMI, PERRL, OP Clear Neck: supple, no adenopathy, no thyromegaly, no JVD CVS/Heart: RRR, normal S1S2, pulses present bilaterally Chest/Lungs: CTA B, Symmetrical chest expansion, good air entry bilaterally GI/Abdomen: soft, NTND, good bowel sounds, no guarding or rebound /Bladder: no suprapubic tenderness, no CVA or paraspinal tenderness Extermity/Skin: diffuse hyperpigmented coin lichenification lesion MSK: not following commands Neuro: not following commands Psych: lethargic - Constitutional Vitals: Temp Pulse Resp BP Pulse Ox 97.9 F 88 18 104/68 100 10/27/18 15:17 10/27/18 15:17 10/27/18 15:17 10/27/18 15:17 10/27/18 15:17 General appearance: Present: no acute distress Results - Labs CBC & Chem 7: 10/26/18 06:13 10/26/18 06:13 Labs: Laboratory Last Values WBC 12.3 K/mm3 (4.5-11.0) H 10/26/18 06:13 RBC 3.35 M/mm3 (3.65-5.03) L 10/26/18 06:13 Hgb 10.2 gm/dl (10.1-14.3) 10/26/18 06:13 Hct 32.3 % (30.3-42.9) 10/26/18 06:13 MCV 97 fl (79-97) 10/26/18 06:13 MCH 31 pg (28-32) 10/26/18 06:13 MCHC 32 % (30-34) 10/26/18 06:13 RDW 16.4 % (13.2-15.2) H 10/26/18 06:13 Plt Count 211 K/mm3 (140-440) 10/26/18 06:13 Lymph % (Auto) 8.4 % (13.4-35.0) L 10/26/18 06:13 Johnson % (Auto) 10.7 % (0.0-7.3) H 10/26/18 06:13 Eos % (Auto) 0.2 % (0.0-4.3) 10/26/18 06:13 Baso % (Auto) 0.3 % (0.0-1.8) 10/26/18 06:13 Lymph # 1.0 K/mm3 (1.2-5.4) L 10/26/18 06:13 Johnson # 1.3 K/mm3 (0.0-0.8) H 10/26/18 06:13 Eos # 0.0 K/mm3 (0.0-0.4) 10/26/18 06:13 Baso # 0.0 K/mm3 (0.0-0.1) 10/26/18 06:13 Add Manual Diff Complete 10/24/18 04:50 Total Counted 100 10/24/18 04:50 Seg Neutrophils % 80.4 % (40.0-70.0) H 10/26/18 06:13 Seg Neuts % (Manual) 79.0 % (40.0-70.0) H 10/24/18 04:50 4.0 % 10/24/18 04:50 11.0 % (13.4-35.0) L 10/24/18 04:50 Reactive Lymphs % (Man) 0 % 10/24/18 04:50 6.0 % (0.0-7.3) 10/24/18 04:50 0 % (0.0-4.3) 10/24/18 04:50 0 % (0.0-1.8) 10/24/18 04:50 0 % 10/24/18 04:50 0 % 10/24/18 04:50 0 % 10/24/18 04:50 0 % 10/24/18 04:50 Nucleated RBC % Not Reportable 10/24/18 04:50 Seg Neutrophils # 9.9 K/mm3 (1.8-7.7) H 10/26/18 06:13 Seg Neutrophils # Man 8.7 K/mm3 (1.8-7.7) H 10/24/18 04:50 Band Neutrophils # 0.4 K/mm3 10/24/18 04:50 1.2 K/mm3 (1.2-5.4) 10/24/18 04:50 Abs React Lymphs (Man) 0.0 K/mm3 10/24/18 04:50 0.7 K/mm3 (0.0-0.8) 10/24/18 04:50 0.0 K/mm3 (0.0-0.4) 10/24/18 04:50 0.0 K/mm3 (0.0-0.1) 10/24/18 04:50 0.0 K/mm3 10/24/18 04:50 0.0 K/mm3 10/24/18 04:50 0.0 K/mm3 10/24/18 04:50 Blast Cells # 0.0 K/mm3 10/24/18 04:50 Pathologist Review 10/24/18 04:50 WBC Morphology Not Reportable 10/23/18 05:24 Hypersegmented Neuts Not Reportable 10/24/18 04:50 Hyposegmented Neuts Not Reportable 10/24/18 04:50 Hypogranular Neuts Not Reportable 10/24/18 04:50 Few 10/24/18 04:50 Not Reportable 10/24/18 04:50 Not Reportable 10/24/18 04:50 Not Reportable 10/24/18 04:50 Not Reportable 10/24/18 04:50 Not Reportable 10/24/18 04:50 Consistent w auto 10/24/18 04:50 Not Reportable 10/24/18 04:50 Plt Clumps, EDTA Not Reportable 10/24/18 04:50 Not Reportable 10/24/18 04:50 Not Reportable 10/24/18 04:50 Not Reportable 10/24/18 04:50 Plt Morphology Comment Not Reportable 10/24/18 04:50 RBC Morphology Not Reportable 10/24/18 04:50 Dimorphic RBCs Not Reportable 10/24/18 04:50 Not Reportable 10/24/18 04:50 Few 10/24/18 04:50 Not Reportable 10/24/18 04:50 1+ 10/24/18 04:50 Not Reportable 10/24/18 04:50 1+ 10/24/18 04:50 Not Reportable 10/24/18 04:50 Not Reportable 10/24/18 04:50 Not Reportable 10/24/18 04:50 Rare 10/24/18 04:50 Not Reportable 10/24/18 04:50 Few 10/24/18 04:50 Not Reportable 10/24/18 04:50 Not Reportable 10/24/18 04:50 Not Reportable 10/24/18 04:50 3+ 10/24/18 04:50 Not Reportable 10/24/18 04:50 Not Reportable 10/24/18 04:50 Not Reportable 10/24/18 04:50 Acanthocytes (Spur) Not Reportable 10/24/18 04:50 Rouleaux Not Reportable 10/24/18 04:50 Not Reportable 10/24/18 04:50 Not Reportable 10/24/18 04:50 Not Reportable 10/24/18 04:50 Not Reportable 10/24/18 04:50 Hem Pathologist Commnt Sent to pathology 10/24/18 04:50 PT 20.6 Sec. (12.2-14.9) H 10/17/18 10:19 INR 1.81 (0.87-1.13) H 10/17/18 10:19 APTT 35.6 Sec. (24.2-36.6) 10/17/18 10:19 18.7 Sec. (15.1-19.6) 10/17/18 10:19 Heparin Anti-Xa, Unfract Negative (Negative) 10/19/18 08:34 POC ABG pH 7.436 (7.35-7.45) 10/23/18 20:51 POC ABG pCO2 34.3 (35-45) L 10/23/18 20:51 POC ABG pO2 95 (80-105) 10/23/18 20:51 POC ABG HCO3 23.1 (22-26 mml/L) 10/23/18 20:51 POC ABG Total CO2 24 (23-27mmol/L) 10/23/18 20:51 POC ABG O2 Sat 98 10/23/18 20:51 POC ABG Base Excess -1 ((-2) - (+3)mmol/L) 10/23/18 20:51 24 % 10/23/18 20:51 Sodium 136 mmol/L (137-145) L 10/26/18 06:13 Potassium 4.7 mmol/L (3.6-5.0) 10/26/18 06:13 Chloride 91.7 mmol/L (98-107) L 10/26/18 06:13 Carbon Dioxide 24 mmol/L (22-30) 10/26/18 06:13 25 mmol/L 10/26/18 06:13 BUN 54 mg/dL (7-17) H 10/26/18 06:13 6.0 mg/dL (0.7-1.2) H 10/26/18 06:13 Estimated GFR 9 ml/min 10/26/18 06:13 9 % 10/26/18 06:13 Glucose 247 mg/dL (65-100) H 10/26/18 06:13 POC Glucose 308 (70-105) H 10/27/18 00:37 Lactic Acid 1.30 mmol/L (0.7-2.0) 10/23/18 14:59 Calcium 8.6 mg/dL (8.4-10.2) 10/26/18 06:13 Phosphorus 5.30 mg/dL (2.5-4.5) H D 10/23/18 05:24 Magnesium 1.70 mg/dL (1.7-2.3) 10/20/18 12:22 Iron 55 ug/dL (37-170) 10/19/18 08:34 TIBC 193 mcg/dL (250-450) L 10/19/18 08:34 2450.0 ng/mL (13.0-400.0) H 10/19/18 08:34 0.50 mg/dL (0.1-1.2) 10/26/18 06:13 AST 36 units/L (5-40) 10/26/18 06:13 ALT 18 units/L (7-56) 10/26/18 06:13 251 units/L (35-129) H 10/26/18 06:13 28.0 umol/L (25-60) 10/26/18 19:36 458 units/L (91-180) H 10/26/18 06:13 3216 units/L (30-135) H 10/17/18 15:15 4.720 ng/mL (0.00-0.029) H* 10/17/18 Unknown 24.10 mg/dL (0.00-1.30) H 10/23/18 14:59 5.5 g/dL (6.1-8.1) L 10/20/18 05:07 5.9 g/dL (6.3-8.2) L 10/26/18 06:13 3.0 g/dL (3.9-5) L 10/26/18 06:13 1.0 % 10/26/18 06:13 0.4 g/dL (0.2-0.3) H 10/20/18 05:07 0.9 g/dL (0.5-0.9) 10/20/18 05:07 0.3 g/dL (0.2-0.5) 10/20/18 05:07 0.8 g/dL (0.8-1.7) 10/20/18 05:07 Abnorm Protein Band 1 see below 10/20/18 05:07 PEP Interpretation see below H 10/20/18 05:07 Triglycerides 102 mg/dL (2-149) 10/17/18 Unknown Cholesterol 198 mg/dL (50-199) 10/17/18 Unknown 116 mg/dL (50-130) 10/17/18 Unknown 88 mg/dL (40-59) H 10/17/18 Unknown 2.25 % 10/17/18 Unknown See scanned result 10/19/18 08:34 Vitamin B12 1296 pg/mL (211-911) H 10/19/18 08:34 8.42 ng/mL (7.3-26.0) 10/19/18 08:34 TSH 1.030 mlU/mL (0.270-4.200) 10/17/18 Unknown Free T4 1.26 ng/dL (0.76-1.46) 10/17/18 Unknown Yellow (Yellow) 10/17/18 11:25 Slightly-cloudy (Clear) 10/17/18 11:25 5.0 (5.0-7.0) 10/17/18 11:25 Ur Specific [place] 1.019 (1.003-1.030) 10/17/18 11:25 100 mg/dl mg/dL (Negative) 10/17/18 11:25 150 mg/dL (Negative) 10/17/18 11:25 Tr mg/dL (Negative) 10/17/18 11:25 Sm (Negative) 10/17/18 11:25 Neg (Negative) 10/17/18 11:25 Neg (Negative) 10/17/18 11:25 < 2.0 mg/dL (<2.0) 10/17/18 11:25 Ur Leukocyte Esterase Tr (Negative) 10/17/18 11:25 3.0 /HPF (0.0-6.0) 10/17/18 11:25 2.0 /HPF (0.0-6.0) 10/17/18 11:25 Few /HPF 10/17/18 11:25 None seen (None Seen) 10/17/18 13:16 60 ml 10/21/18 18:19 196.7 mg/dL (0.1-20.0) H 10/21/18 18:19 Ur Creatinine 24 Hour 0.1 (0.8-2.8) L 10/21/18 18:19 Height (in) 62.0 inches 10/20/18 13:45 Weight (lb) 126.5 lbs 10/20/18 13:45 3 10/20/18 13:45 Protein/Creatinin Ratio 0.69 10/17/18 13:16 12 mmol/L 10/17/18 13:34 191 mg/dL (5-11.8) H 10/17/18 13:16 Salicylates < 0.3 mg/dL (2.8-20.0) L 10/17/18 Unknown Acetaminophen < 5.0 ug/mL (10.0-30.0) L 10/17/18 Unknown Plasma/Serum Alcohol < 0.01 % (0-0.07) 10/17/18 Unknown Immunofix Electrophor see below 10/20/18 05:07 Heparin-induced Plt Ab Negative (Negative) 10/19/18 08:34 UF Heparin High Dose 0 % Release 10/19/18 08:34 KAILYN UFH Low Dose 0.1 0 % Release 10/19/18 08:34 KAILYN UFH Low Dose 0.5 0 % Release 10/19/18 08:34 Hepatitis A IgM Ab Non-reactive (NonReactive) 10/17/18 15:15 Hep Bs Antigen Non-reactive (Negative) 10/17/18 15:15 Hep B Core IgM Ab Non-reactive (NonReactive) 10/17/18 15:15 Non-reactive (NonReactive) 10/17/18 15:15 Rare 10/17/18 15:43 Flexitest 1 10/20/18 10:53 Active Medications - Current Medications Current Medications: Generic Name Dose Route Start Last Admin Trade Name Freq PRN Reason Stop Dose Admin Lipase/Protease/Amylase 1 each 10/25/18 09:[address] 10,500 Unit FEEDTUBE PRN PRN For Clogged Feeding Tube Clopidogrel Bisulfate 75 mg 10/21/18 11:00 10/27/18 10:36 Plavix PO 75 mg QDAY ALLEY Administration Docusate Sodium 100 mg 10/24/18 23:45 10/27/18 10:36 Colace FEEDTUBE 100 mg BID ALLEY Administration Ergocalciferol 50,000 unit 10/24/18 10:00 10/24/18 10:42 Vitamin D2 PO 50,000 unit Sa ALLEY Administration Famotidine 20 mg 10/21/18 10:00 10/27/18 10:36 Pepcid PO 20 mg DAILY ALLEY Administration Gabapentin 300 mg 10/17/18 22:00 10/26/18 22:20 Neurontin PO 300 mg QHS ALLEY Administration Sodium Chloride 100 mls @ 999 mls/hr 10/25/18 14:52 Nacl 0.9% IV LESLIE PRN Hypotension Insulin Human Lispro 0 unit 10/24/18 12:00 10/27/18 11:54 Humalog SUB-Q 6 unit Q6HR ALLEY Administration Protocol Latanoprost 1 drops 10/17/18 18:00 10/26/18 17:07 Latanoprost 0.005% OU 1 drops QPM ALLEY Administration Levetiracetam 500 mg 10/21/18 10:00 10/27/18 10:36 Keppra PO 500 mg BID ALLEY Administration Simple Syrup 15 ml 10/25/18 09:18 Simple Syrup FEEDTUBE PRN PRN Hypoglycemia Simple Syrup 30 ml 10/25/18 09:18 Simple Syrup FEEDTUBE PRN PRN Hypoglycemia Sodium Bicarbonate 325 mg 10/17/18 17:00 10/27/18 10:36 Sodium Bicarbonate PO 325 mg DAILY ALLEY Administration Sodium Bicarbonate 325 mg 10/25/18 09:18 Sodium Bicarbonate FEEDTUBE PRN PRN For Clogged Feeding Tube Nutrition/Malnutrition Assess - Dietary Evaluation Nutrition/Malnutrition Findings: Nutrition Notes Start: 10/18/18 14:28 Freq: Status: Active Protocol: Document 10/26/18 15:43 OH (Rec: 10/26/18 15:50 OH [id number]) Nutrition Notes Initial or Follow up Reassessment Current Diagnosis Acute Kidney Injury,CKD(stage I-IV),Coronary Artery Disease, Diabetes,Hypertension,Heart Failure,Stroke,Hyperlipidemia Other Pertinent Diagnosis PNEUMONIA Current Diet NPO Labs/Tests ALB 3.0 Na 136 K+ 4.7 BUN 54 Cr 6.0 Height 5 ft 2 in Weight 57.6 kg [place] Body Weight (kg) 50.00 BMI 23.2 Subjective/Other Information Pt. to be d/c to [facility] and outpatient dialysis to be continued. Per RN pt had 40 cc residual but no n/v/diarrhea associated with TF. Pt. in dialysis upon RD visit. Burn Absent Trauma Absent #1 Nutrition Diagnosis Inadequate oral intake Is patient on ventilator? No Is Patient Ambulatory and/or Out of Bed No REE-([facility]-confined to bed) 1306.046 Calculation Used for Recommendations [facility] Additional Notes Protein Needs: 69-86g(1.2-1.5g /kg) Fluid Needs: 1 ml/kcal Nutrition Intervention Change Diet Order: TF Nutrition Support: Nepro at 30ml/hr Flush with 120ml q4h Kcal 1,296 Protein (gm) 58 Fluid (mL) 523 Goal #1 Meet at least 80% of kcal and protein needs via TF Anticipated Discharge Needs: Unable to determine at this time Follow-Up By: 10/29/18 Additional Comments Follow for TF start/tolerance, renal labs
[2018-10-27] MEDS: LATANOPROST 0.005% OU SCH (18:10)
--- NOTE | 2018-10-27 18:17 | Consultation ---
History of Present Illness - Reason for Consult Consult date: 10/27/18 Fever Requesting physician: VAMSHI SHARP - History of Present Illness The patient is a 63-year-old female who was admitted to the hospital on 10/17/2018 with altered mental status. She has a history of hypertension, diabetes mellitus type 2, CVA, dementia, CAD status post CABG, CKD stage IV. U sean evaluation in the ER, she was found to have worsening renal function requiring urgent hemodialysis. On 10/17/2018, she underwent right common femoral non-tunneled dialysis catheter using ultrasound guidance. On 10/22/2018, she had a right IJ tunneled dialysis catheter placed. She was also found to have a stroke with bilateral infarct seen on MRI, thought to be cardioembolic. MRA of the head and neck did not reveal any significant stenosis. Echo showed a low EF of 10-15%, EDINSON did not reveal any evidence of intracardiac thrombi. Patient is currently nonverbal and drowsy, unable to prov bao history. History of pain by chart review and by talking to the patient's nurse. Patient had a fever to 100.8F on 10/24/2018 and another isolated fever of 101.0F on 10/26/2018. Infectious diseases was consulted due to the fevers. She has otherwise remained afebrile. Repeat CT head today shows evolving infarcts in the left frontal and occipital lobes. Review of Systems: non verbal, unable to obtain Past History Past Medical History: other (hypertension, diabetes mellitus, GERD, history of previous stroke with residual dementia, coronary artery disease status post CABG, history of seizures, chronic kidney disease) Social history: lives with family Family history: no significant family history Medications and Allergies Allergies Allergy/AdvReac Type Severity Reaction Status Date / Time NSAIDS (Non-Steroidal AdvReac Unknown Verified 01/02/17 05:56 Anti-Inflamma Tetracyclines AdvReac Unknown Verified 09/26/14 12:09 Home Medications Medication Instructions Recorded Confirmed Last Taken Type Ergocalciferol [Vitamin D2] 50,000 unit PO QWEEK capsule 09/25/16 10/17/18 Unknown Rx Latanoprost 0.005% 1 drop OP QPM 01/02/17 10/17/18 Unknown History Sodium Bicarbonate 325 mg PO DAILY 01/02/17 10/17/18 Unknown History Clopidogrel [Plavix] 75 mg PO DAILY #30 tablet 01/08/17 10/17/18 Unknown Rx Docusate Sodium [Colace CAP] 100 mg PO BID #60 capsule 01/08/17 10/17/18 Unknown Rx Famotidine [Pepcid] 10 mg PO BID #60 tablet 01/08/17 10/17/18 Unknown Rx Gabapentin [Neurontin] 300 mg PO QHS #30 capsule 01/08/17 10/17/18 Unknown Rx Simvastatin [Zocor TAB] 20 mg PO QHS #60 tablet 01/08/17 10/17/18 Unknown Rx glipiZIDE [Glucotrol] 5 mg PO QDDIAB #60 tablet 01/08/17 10/17/18 Unknown Rx hydrALAZINE [Apresoline TAB] 10 mg PO Q8HR #90 tablet 01/08/17 10/17/18 Unknown Rx levETIRAcetam [Keppra TAB] 500 mg PO BID #60 tablet 01/08/17 10/17/18 Unknown Rx Active Meds: Active Medications Lipase/Protease/Amylase (Meghan Bruner 10,500 Unit) 1 each FEEDTUBE PRN PRN PRN Reason: For Clogged Feeding Tube Clopidogrel Bisulfate (Plavix) 75 mg PO QDAY [facility] Last Admin: 10/27/18 10:36 Dose: 75 mg Documented by: Docusate Sodium (Colace) 100 mg FEEDTUBE BID [facility] Last Admin: 10/27/18 10:36 Dose: 100 mg Documented by: Ergocalciferol (Vitamin D2) 50,000 unit PO Sa [facility] Last Admin: 10/24/18 10:42 Dose: 50,000 unit Documented by: Famotidine (Pepcid) 20 mg PO DAILY [facility] Last Admin: 10/27/18 10:36 Dose: 20 mg Documented by: Gabapentin (Neurontin) 300 mg PO QHS [facility] Last Admin: 10/26/18 22:20 Dose: 300 mg Documented by: Sodium Chloride (Nacl 0.9%) 100 mls @ 999 mls/hr IV LESLIE PRN PRN Reason: Hypotension Insulin Human Lispro (Humalog) 0 unit SUB-Q Q6HR [facility]; Protocol Last Admin: 10/27/18 17:32 Dose: 6 unit Documented by: Latanoprost (Latanoprost 0.005%) 1 drops OU QPM [facility] Last Admin: 10/27/18 18:10 Dose: 1 drops Documented by: Levetiracetam (Keppra) 500 mg PO BID [facility] Last Admin: 10/27/18 10:36 Dose: 500 mg Documented by: Simple Syrup (Simple Syrup) 15 ml FEEDTUBE PRN PRN PRN Reason: Hypoglycemia Simple Syrup (Simple Syrup) 30 ml FEEDTUBE PRN PRN PRN Reason: Hypoglycemia Sodium Bicarbonate (Sodium Bicarbonate) 325 mg PO DAILY [facility] Last Admin: 10/27/18 10:36 Dose: 325 mg Documented by: Sodium Bicarbonate (Sodium Bicarbonate) 325 mg FEEDTUBE PRN PRN PRN Reason: For Clogged Feeding Tube Physical Examination - Physical Exam Narrative exam: Physical Exam: Constitutional: no distress, non verbal Head, Ears, Nose: Normocephalic, atraumatic. External ears, nose normal Eyes: Conjunctivae/corneas clear. No icterus. No ptosis. Neck: Supple, no meningeal signs Oral: Unable to examine Cardiovascular: S1, S2 normal. Respiratory: Good air entry, clear to auscultation bilaterally GI: Soft, non-tender; bowel sounds normal. No peritoneal signs Musculoskeletal: No pedal edema, no cyanosis. Skin: No rash or abscess. Multiple hyperpigmented spots, ?early calciphylaxis. Superficial wounds on legs, do not appear infected Hem/Lymphatic: No palpable cervical or supraclavicular nodes. No lymphangitis Psych: Agitation Neurological: drowsy, non verbal, non communicative - Constitutional Vitals: Vital Signs Temp Pulse Resp BP Pulse Ox 97.9 F 88 18 104/68 100 10/27/18 15:17 10/27/18 15:17 10/27/18 15:17 10/27/18 15:17 10/27/18 15:17 Temperature -Last 24 Hours Temperature 97.9 F Temperature 97.9 F Temperature 97.9 F Temperature 98.6 F Temperature 98.6 F Temperature 98.3 F Temperature 98.3 F Temperature 98.0 F Temperature 98.0 F Temperature 98.2 F Results - Labs CBC & Chem 7: 10/26/18 06:13 10/26/18 06:13 Labs: Abnormal lab results 10/25/18 10/26/18 10/26/18 Range/Units 23:38 05:49 09:17 POC Glucose 312 H 246 H 252 H (70-105) 10/26/18 10/27/18 Range/Units 15:31 00:37 POC Glucose 265 H 308 H (70-105) - Imaging and Cardiology Chest x-ray: report reviewed, image reviewed (Chest x-ray on 10/26/2018 showed bibasilar effusions.) MRI - head: report reviewed, image reviewed (MRI brain showed multiple areas of ischemia) Assessment and Plan Cultures: 10/17/2018 urine culture: No growth 10/23/2018 and blood culture: No growth 10/26/2018 blood culture: In progress A/P: 63-year-old female who was admitted to the hospital on 10/17/2018 with altered mental status. She has a history of hypertension, diabetes mellitus type 2, CVA, dementia, CAD status post CABG, CKD stage IV. Upon evaluation in the ER, she was found to have worsening renal function requiring urgent hemodialysis: 1) Isolated fevers: 2 episodes so far throughout the hospitalization. Agree wit h checking blood cultures. No evidence of pneumonia. Chest x-ray shows bilateral pleural effusions. She does not appear to have any respiratory distress. Wounds are quite superficial and do not appear to be infected. We'll hold off on any antibiotics at this time. A central fever is quite possible. If she spikes another fever, will start empiric Cefepime and Vancomycin. 2) Bilateral CVA: ?cardioembolic stroke. Low EF, EDINSON negative for thrombus or vegetation. 3) ARF / ESRD: on hemodialysis. Recs: monitor fever and WBC hold off on any abx at this time. ?central fever If she spikes another fever, start empiric Cefepime and Vancomycin d/w Dr. Sharp. Bernice Torres MD, FACP [facility] C: [phone] O: [phone] F: [phone]
[2018-10-27] MEDS: NEURONTIN PO SCH (21:33)
[2018-10-28] MEDS: HumaLOG SUB-Q SCH ×4 (01:00→18:00)
--- NOTE | 2018-10-28 06:53 | Hem/Onc Progress Note ---
Assessment and Plan 1. Elevated LDH. Smear has been evaluated. HIT NEGATIVE, [id number] 90% 2. Renal impairment. Nephrology team following the patient. SPEP normal 3. deficiency investigation. The smear evaluation is being done. The platelet counts at admission were normal and then have gone down. The cause of thrombocytopenia unclear. Her mentation is also not perfect. I will follow the trend of the counts. b12 - folate - iron ferritin normal 4. Cerebrovascular accident?. neurology following. 5. Electrolyte imbalance. 6. Vitamin D deficiency. 8. History of diabetes. 9. History of hypertension. 10. History of seizure. 11. Hyperlipidemia. pt plt have improved - smear - rare schistocytes neurology following - cva low EF Stroke: - Likely cardio-embolic, as b/l infarcts seen on MRI. - MRA head/neck did not reveal any significant stenosis - Echo: EF 10-15%, bubble study negative, LA moderately dilated - EDINSON did not reveal any evidence of intracardiac thrombi. 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 high [id number] 90% - less likely TTP plt rare schistocytes HIT neg SPEP no monoclonal band LDH lower - last 400, in past this was 800s will follow - Patient Problems (1) Thrombocytopenia Current Visit: Yes Status: Acute Subjective Date of service: 10/28/18 Principal diagnosis: anemia Interval history: non verbal Objective - Exam Narrative Exam: Pain Not evaluable General appearance no acute distress Performance status -completely disabled Eyes EOM not able to evaluate ENT no nose/ear bleed LNs cervical not palpable Neck Not evaluable Respiratory Normal Breath sounds - CTA anteriorly CVS S1 S2 + Extremities normal temperature/ no edema General GI Soft non tender Rectal deferred Female - deferred Skin warm Musculoskeletal generalized weakness Neurologically not responsive - Constitutional Vitals: Last Vital Signs Temp 100.2 F H 10/28/18 03:18 Pulse 81 10/28/18 03:18 Resp 20 10/28/18 03:18 BP 91/56 10/28/18 03:18 Pulse Ox 95 10/28/18 03:18 - Labs Lab Results: Laboratory Results - last 24 hr 10/27/18 10/27/18 10/27/18 06:20 11:19 16:40 POC Glucose 368 H 331 H 348 H Medications & Allergies - Medications Allergies/Adverse Reactions: Allergies NSAIDS (Non-Steroidal Anti-Inflamma Adverse Reaction (Verified 01/02/17 05:56) Unknown Tetracyclines Adverse Reaction (Verified 09/26/14 12:09) Unknown Home Medications: Home Medications Medication Instructions Recorded Confirmed Last Taken Type Ergocalciferol [Vitamin D2] 50,000 unit PO QWEEK capsule 09/25/16 10/17/18 Unknown Rx Latanoprost 0.005% 1 drop OP QPM 01/02/17 10/17/18 Unknown History Sodium Bicarbonate 325 mg PO DAILY 01/02/17 10/17/18 Unknown History Clopidogrel [Plavix] 75 mg PO DAILY #30 tablet 01/08/17 10/17/18 Unknown Rx Docusate Sodium [Colace CAP] 100 mg PO BID #60 capsule 01/08/17 10/17/18 Unknown Rx Famotidine [Pepcid] 10 mg PO BID #60 tablet 01/08/17 10/17/18 Unknown Rx Gabapentin [Neurontin] 300 mg PO QHS #30 capsule 01/08/17 10/17/18 Unknown Rx Simvastatin [Zocor TAB] 20 mg PO QHS #60 tablet 01/08/17 10/17/18 Unknown Rx glipiZIDE [Glucotrol] 5 mg PO QDDIAB #60 tablet 01/08/17 10/17/18 Unknown Rx hydrALAZINE [Apresoline TAB] 10 mg PO Q8HR #90 tablet 01/08/17 10/17/18 Unknown Rx levETIRAcetam [Keppra TAB] 500 mg PO BID #60 tablet 01/08/17 10/17/18 Unknown Rx Active Medications: Generic Name Dose Route Start Last Admin Trade Name Freq PRN Reason Stop Dose Admin Lipase/Protease/Amylase 1 each 10/25/18 09:[address] 10,500 Unit FEEDTUBE PRN PRN For Clogged Feeding Tube Clopidogrel Bisulfate 75 mg 10/21/18 11:00 10/27/18 10:36 Plavix PO 75 mg QDAY ALLEY Administration Docusate Sodium 100 mg 10/24/18 23:45 10/27/18 21:32 Colace FEEDTUBE 100 mg BID ALLEY Administration Ergocalciferol 50,000 unit 10/24/18 10:00 10/24/18 10:42 Vitamin D2 PO 50,000 unit Sa ALLEY Administration Famotidine 20 mg 10/21/18 10:00 10/27/18 10:36 Pepcid PO 20 mg DAILY ALLEY Administration Gabapentin 300 mg 10/17/18 22:00 10/27/18 21:33 Neurontin PO 300 mg QHS ALLEY Administration Sodium Chloride 100 mls @ 999 mls/hr 10/25/18 14:52 Nacl 0.9% IV LESLIE PRN Hypotension Insulin Human Lispro 0 unit 10/24/18 12:00 10/28/18 01:00 Humalog SUB-Q 6 unit Q6HR ALLEY Administration Protocol Latanoprost 1 drops 10/17/18 18:00 10/27/18 18:10 Latanoprost 0.005% OU 1 drops QPM ALLEY Administration Levetiracetam 500 mg 10/21/18 10:00 10/27/18 21:32 Keppra PO 500 mg BID ALLEY Administration Simple Syrup 15 ml 10/25/18 09:18 Simple Syrup FEEDTUBE PRN PRN Hypoglycemia Simple Syrup 30 ml 10/25/18 09:18 Simple Syrup FEEDTUBE PRN PRN Hypoglycemia Sodium Bicarbonate 325 mg 10/17/18 17:00 10/27/18 10:36 Sodium Bicarbonate PO 325 mg DAILY ALLEY Administration Sodium Bicarbonate 325 mg 10/25/18 09:18 Sodium Bicarbonate FEEDTUBE PRN PRN For Clogged Feeding Tube
[2018-10-28 07:03] LABS: Calcium 8.3 mg/dL (8.4-10.2)
[2018-10-28 07:19] LABS: Hematocrit 26.7 % (30.3-42.9); Hemoglobin 8.7 gm/dl (10.1-14.3); Mean Corpuscular HGB Conc 33 % (30-34); Mean Corpuscular Volume 95 fl (79-97); Platelet Count 258 K/mm3 (140-440); Red Blood Count 2.82 M/mm3 (3.65-5.03); Red Cell Distribution Width 16.2 % (13.2-15.2)
--- NOTE | 2018-10-28 09:00 | Ultrasound Report ---
ULTRASOUND CHEST HISTORY: Bilateral pleural effusion FINDINGS: Targeted grayscale ultrasound was performed on both sides of the chest to evaluate for pleu ral effusions. A simple appearing right pleural effusion measures 210 cc. A simple appearing left ple ural effusion measures 298 cc. IMPRESSION: Small bilateral pleural effusions as described. Signer Name: Bakari Tobin Jr, MD Signed: 10/28/2018 8:56 AM Workstation Name: [id number]
[2018-10-28] MEDS: PEPCID PO SCH (09:08)
[2018-10-28] MEDS: PLAVIX PO SCH (09:08)
[2018-10-28] MEDS: KEPPRA PO SCH ×2 (09:08→21:41)
[2018-10-28] MEDS: COLACE FEEDTUBE SCH (09:09)
[2018-10-28] MEDS: SODIUM BICARBONATE PO SCH ×2 (09:09→09:38)
--- NOTE | 2018-10-28 10:39 | Progress Note ---
<BENITEZ ACOSTA - Last Filed: 10/28/18 10:36> Assessment and Plan Acute CVA, embolic -initiated on plavix (NSAIDS allergy) -EDINSON done reports no cardiac source of emboli and no evidence of endocarditis, LVEF 5-10% Altered mental status Chronic kidney disease initiated on dialysis Elevated liver enzymes -resolved Thrombocytopenia -resolved Hypertension Diabetes Hx of CAD with prior CABG paroxysmal NSVT TSH is normal No ischemia by MPI 04/2016. Normal LVEF 50-55% by echo 09/2016. A repeat echocardiogram revealed right heart enlargement with a severely decreased left ventricular systolic function, EF 10-15%. The duration of this cardiomyopathy is uncertain. Recommend: Continue medical therapy for dilated cardiomyopathy and coronary artery disease as her blood pressure will allow. Conservative cardiac management. We will sign off. Subjective Date of service: 10/28/18 Principal diagnosis: h/o low plt Interval history: No cardiac events reported. Objective Vital Signs Temp Pulse Resp BP Pulse Ox 10/28/18 07:39 98.4 F 18 89/48 10/28/18 06:00 82 10/28/18 03:18 100.2 F H 81 20 91/56 95 10/27/18 23:09 98.1 F 81 20 103/65 97 10/27/18 19:28 97.7 F 45 L 18 103/68 91 10/27/18 15:17 97.9 F 88 18 104/68 100 10/27/18 14:00 87 10/27/18 13:19 97.9 F 18 10/27/18 13:16 97.9 F 88 18 106/67 98 - Physical Examination General: No Apparent Distress Neck: Positive: trachea midline Cardiac: Positive: irregularly irregular Neuro: Positive: Weakness, Other (Nonverbal or communicative) Extremities: Absent: edema - Labs and Meds CBC 10/28/18 Range/Units 05:58 WBC 12.5 H (4.5-11.0) K/mm3 RBC 2.82 L (3.65-5.03) M/mm3 Hgb 8.7 L (10.1-14.3) gm/dl Hct 26.7 L (30.3-42.9) % Plt Count 258 (140-440) K/mm3 Comprehensive Metabolic Panel 10/28/18 Range/Units 05:58 Sodium 138 (137-145) mmol/L Potassium 3.9 (3.6-5.0) mmol/L Chloride 93.7 L (98-107) mmol/L Carbon Dioxide 26 (22-30) mmol/L BUN 55 H (7-17) mg/dL Creatinine 5.3 H (0.7-1.2) mg/dL Glucose 286 H (65-100) mg/dL Calcium 8.3 L (8.4-10.2) mg/dL - Allied health notes Allied health notes reviewed: nursing <KAREEM SUNG - Last Filed: 10/28/18 20:24> Assessment and Plan I have seen and evaluated the patient and agree with the assessment and plan. Objective Vital Signs Temp Pulse Resp BP BP Pulse Ox 10/28/18 20:11 100 10/28/18 20:00 98.0 F 10/28/18 19:30 78 11 L 95/60 10/28/18 19:21 82 15 102/60 100 10/28/18 19:11 77 32 H 94/60 96 10/28/18 19:00 79 19 94/60 98 10/28/18 18:51 80 17 103/59 97 10/28/18 18:41 80 14 107/63 100 10/28/18 18:30 80 17 107/63 99 10/28/18 18:21 80 14 98/56 99 10/28/18 18:11 79 14 99/60 98 10/28/18 18:00 80 11 L 99/60 98 10/28/18 17:51 80 12 90/56 99 10/28/18 17:41 80 14 93/61 99 10/28/18 17:35 84 10/28/18 16:25 98.8 F 83 18 87/49 100 10/28/18 13:43 100.3 F H 79 16 83/50 10/28/18 11:56 97.5 F L 18 82/48 10/28/18 10:00 16 100 10/28/18 07:39 98.4 F 18 89/48 10/28/18 06:00 82 10/28/18 03:18 100.2 F H 81 20 91/56 95 10/27/18 23:09 98.1 F 81 20 103/65 97 - Labs and Meds CBC 10/28/18 Range/Units 05:58 WBC 12.5 H (4.5-11.0) K/mm3 RBC 2.82 L (3.65-5.03) M/mm3 Hgb 8.7 L (10.1-14.3) gm/dl Hct 26.7 L (30.3-42.9) % Plt Count 258 (140-440) K/mm3 Comprehensive Metabolic Panel 10/28/18 Range/Units 05:58 Sodium 138 (137-145) mmol/L Potassium 3.9 (3.6-5.0) mmol/L Chloride 93.7 L (98-107) mmol/L Carbon Dioxide 26 (22-30) mmol/L BUN 55 H (7-17) mg/dL Creatinine 5.3 H (0.7-1.2) mg/dL Glucose 286 H (65-100) mg/dL Calcium 8.3 L (8.4-10.2) mg/dL
--- NOTE | 2018-10-28 10:54 | Progress Note ---
Assessment and Plan Cultures: 10/17/2018 urine culture: No growth 10/23/2018 and blood culture: No growth 10/26/2018 blood culture: In progress A/P: 63-year-old female who was admitted to the hospital on 10/17/2018 with altered mental status. She has a history of hypertension, diabetes mellitus type 2, CVA , dementia, CAD status post CABG, CKD stage IV. Upon evaluation in the ER, she was found to have worsening renal function requiring urgent hemodialysis: 1) Isolated fevers: Improved, 2 episodes so far throughout the hospitalization. Agree with checking blood cultures. No evidence of pneumonia. Chest x-ray shows bilateral pleural effusions. She does not appear to have any respiratory distress. Wounds are quite superficial and do not appear to be infected. We'll hold off on any antibiotics at this time. A central fever is quite possible. If she spikes another fever, will start empiric Cefepime and Vancomycin. 2) Bilateral CVA: ?cardioembolic stroke. Low EF, EDINSON negative for thrombus or vegetation. 3) ARF / ESRD: on hemodialysis. Recs: continue to monitor fever and WBC hold off on any abx at this time. ?central fever CBC ordered for tomorrow [facility] M: [phone] O:[phone] Subjective Date of service: 10/28/18 Principal diagnosis: h/o low plt Interval history: Patient seen and examined. Non-verbal. Does not follow commands. No fevers. Objective - Exam Narrative Exam: Constitutional: Asleep. Difficult to arouse. No acute distress observed. Head, Ears, Nose: Normocephalic, atraumatic. External ears, nose normal Eyes: Conjunctivae/corneas clear. No icterus. No ptosis. Neck: Supple, no meningeal signs Oral: Unable to examine Cardiovascular: S1, S2 normal. Respiratory: Good air entry, clear to auscultation bilaterally GI: Soft, non-tender; bowel sounds normal. No peritoneal signs Musculoskeletal: No pedal edema, no cyanosis. Skin: No rash or abscess. Multiple hyperpigmented spots, ?early calciphylaxis. Superficial wounds on legs, do not appear infected Hem/Lymphatic: No palpable cervical or supraclavicular nodes. No lymphangitis Psych: Agitation Neurological: drowsy, non verbal, non communicative - Constitutional Vitals: Vital Signs Temp Pulse Resp BP Pulse Ox 98.4 F 82 18 89/48 95 10/28/18 07:39 10/28/18 06:00 10/28/18 07:39 10/28/18 07:39 10/28/18 03:18 Temperature -Last 24 Hours Temperature 98.4 F Temperature 100.2 F Temperature 98.1 F Temperature 97.7 F Temperature 97.9 F Temperature 97.9 F Temperature 97.9 F - Labs CBC & Chem 7: 10/28/18 05:58 10/28/18 05:58 Labs: Abnormal lab results 10/27/18 10/27/18 10/27/18 Range/Units 06:20 11:19 16:40 WBC (4.5-11.0) K/mm3 RBC (3.65-5.03) M/mm3 Hgb (10.1-14.3) gm/dl Hct (30.3-42.9) % RDW (13.2-15.2) % Chloride (98-107) mmol/L BUN (7-17) mg/dL Creatinine (0.7-1.2) mg/dL Glucose (65-100) mg/dL POC Glucose 368 H 331 H 348 H (70-105) Calcium (8.4-10.2) mg/dL 10/28/18 10/28/18 Range/Units 05:58 05:58 WBC 12.5 H (4.5-11.0) K/mm3 RBC 2.82 L (3.65-5.03) M/mm3 Hgb 8.7 L (10.1-14.3) gm/dl Hct 26.7 L (30.3-42.9) % RDW 16.2 H (13.2-15.2) % Chloride 93.7 L (98-107) mmol/L BUN 55 H (7-17) mg/dL Creatinine 5.3 H (0.7-1.2) mg/dL Glucose 286 H (65-100) mg/dL POC Glucose (70-105) Calcium 8.3 L (8.4-10.2) mg/dL
--- NOTE | 2018-10-28 11:04 | Progress Note ---
Assessment and Plan Acute renal failure on chronic kidney disease stage III/IV AG metabolic acidosis Hyperkalemia Metabolic encephalopathy CVA - Hemodialysis today for clearance and gentle UF via right IJ perm-catheter - Urine eosinophils were negative - Renal US- negative for obstruction - Renally dose medications - Strict I&O monitoring - Obtain daily weights - Assess dialysis needs daily - Case management onboard for outpatient HD placement to [facility] - Planning to be discharged to [facility] when family signs their paperwork per director social service Subjective Date of service: 10/28/18 Principal diagnosis: h/o low plt Interval history: Patient seen lying in bed. Does not communicate. Eyes closed. No family at bedside. Objective - Vital Signs Vital signs: Vital Signs - 12hr 10/27/18 10/28/18 10/28/18 23:09 03:18 06:00 Temperature 98.1 F 100.2 F H Pulse Rate 81 81 82 Respiratory 20 20 Rate Blood Pressure 103/65 91/56 O2 Sat by Pulse 97 95 Oximetry 10/28/18 07:39 Temperature 98.4 F Pulse Rate Respiratory 18 Rate Blood Pressure 89/48 O2 Sat by Pulse Oximetry - General Appearance General appearance: chronically ill EENT: ATNC Neck: no JVD, supple Respiratory: Present: Decreased Breath Sounds Cardiology: S1S2 Gastrointestinal: other (Has dobhoff feeding tube intact) Integumentary: warm and dry Neurologic: other (Lethargic) Musculoskeletal: other (No edema) - Lab 10/28/18 05:58 10/28/18 05:58 Most recent lab results Calcium 8.3 mg/dL (8.4-10.2) L 10/28/18 05:58 Phosphorus 5.30 mg/dL (2.5-4.5) H D 10/23/18 05:24 Magnesium 1.90 mg/dL (1.7-2.3) 10/28/18 05:58 196.7 mg/dL (0.1-20.0) H 10/21/18 18:19 12 mmol/L 10/17/18 13:34 191 mg/dL (5-11.8) H 10/17/18 13:16 Medications & Allergies - Medications Allergies/Adverse Reactions: Allergies NSAIDS (Non-Steroidal Anti-Inflamma Adverse Reaction (Verified 01/02/17 05:56) Unknown Tetracyclines Adverse Reaction (Verified 09/26/14 12:09) Unknown Home Medications: Home Medications Medication Instructions Recorded Confirmed Last Taken Type Ergocalciferol [Vitamin D2] 50,000 unit PO QWEEK capsule 09/25/16 10/17/18 Unknown Rx Latanoprost 0.005% 1 drop OP QPM 01/02/17 10/17/18 Unknown History Sodium Bicarbonate 325 mg PO DAILY 01/02/17 10/17/18 Unknown History Clopidogrel [Plavix] 75 mg PO DAILY #30 tablet 01/08/17 10/17/18 Unknown Rx Docusate Sodium [Colace CAP] 100 mg PO BID #60 capsule 01/08/17 10/17/18 Unknown Rx Famotidine [Pepcid] 10 mg PO BID #60 tablet 01/08/17 10/17/18 Unknown Rx Gabapentin [Neurontin] 300 mg PO QHS #30 capsule 01/08/17 10/17/18 Unknown Rx Simvastatin [Zocor TAB] 20 mg PO QHS #60 tablet 01/08/17 10/17/18 Unknown Rx glipiZIDE [Glucotrol] 5 mg PO QDDIAB #60 tablet 01/08/17 10/17/18 Unknown Rx hydrALAZINE [Apresoline TAB] 10 mg PO Q8HR #90 tablet 01/08/17 10/17/18 Unknown Rx levETIRAcetam [Keppra TAB] 500 mg PO BID #60 tablet 01/08/17 10/17/18 Unknown Rx Active Medications: Generic Name Dose Route Start Last Admin Trade Name Freq PRN Reason Stop Dose Admin Lipase/Protease/Amylase 1 each 10/25/18 09:18 10/28/18 09:[address] 10,500 Unit FEEDTUBE 1 each PRN PRN Administration For Clogged Feeding Tube Clopidogrel Bisulfate 75 mg 10/21/18 11:00 10/28/18 09:08 Plavix PO 75 mg QDAY ALLEY Administration Docusate Sodium 100 mg 10/24/18 23:45 10/28/18 09:09 Colace FEEDTUBE 100 mg BID ALLEY Administration Ergocalciferol 50,000 unit 10/24/18 10:00 10/24/18 10:42 Vitamin D2 PO 50,000 unit Sa ALLEY Administration Famotidine 20 mg 10/21/18 10:00 10/28/18 09:08 Pepcid PO 20 mg DAILY ALLEY Administration Gabapentin 300 mg 10/17/18 22:00 10/27/18 21:33 Neurontin PO 300 mg QHS ALLEY Administration Sodium Chloride 100 mls @ 999 mls/hr 10/25/18 14:52 Nacl 0.9% IV LESLIE PRN Hypotension Insulin Human Lispro 0 unit 10/24/18 12:00 10/28/18 08:48 Humalog SUB-Q 4 unit Q6HR ALLEY Administration Protocol Latanoprost 1 drops 10/17/18 18:00 10/27/18 18:10 Latanoprost 0.005% OU 1 drops QPM ALLEY Administration Levetiracetam 500 mg 10/21/18 10:00 10/28/18 09:08 Keppra PO 500 mg BID ALLEY Administration Simple Syrup 15 ml 10/25/18 09:18 Simple Syrup FEEDTUBE PRN PRN Hypoglycemia Simple Syrup 30 ml 10/25/18 09:18 Simple Syrup FEEDTUBE PRN PRN Hypoglycemia Sodium Bicarbonate 325 mg 10/17/18 17:00 10/28/18 09:38 Sodium Bicarbonate PO 325 mg DAILY ALLEY Administration Sodium Bicarbonate 325 mg 10/25/18 09:18 Sodium Bicarbonate FEEDTUBE PRN PRN For Clogged Feeding Tube
--- NOTE | 2018-10-28 11:13 | Progress Note ---
Assessment and Plan Cultures: 10/17/2018 urine culture: No growth 10/23/2018 and blood culture: No growth 10/26/2018 blood culture: In progress A/P: 63-year-old female who was admitted to the hospital on 10/17/2018 with altered mental status. She has a history of hypertension, diabetes mellitus type 2, CVA , dementia, CAD status post CABG, CKD stage IV. Upon evaluation in the ER, she was found to have worsening renal function requiring urgent hemodialysis: 1) Isolated fevers: 2 episodes so far throughout the hospitalization. Agree with checking blood cultures. No evidence of pneumonia. Chest x-ray shows bilateral pleural effusions. She does not appear to have any respiratory distress. Wounds are quite superficial and do not appear to be infected. We'll hold off on any antibiotics at this time. A central fever is quite possible. If she spikes another fever, will start empiric Cefepime and Vancomycin. 2) Bilateral CVA: ?cardioembolic stroke. Low EF, EDINSON negative for thrombus or vegetation. 3) ARF / ESRD: on hemodialysis. Recs: monitor fever and WBC hold off on any abx at this time. ?central fever If she spikes another fever, start empiric Cefepime and Vancomycin d/w Dr. Sharp. [facility] M: [phone] O:[phone] Subjective Date of service: 10/28/18 Principal diagnosis: h/o low plt Interval history: Patient seen and examined. Laying in bed. Nonverbal. Not following commands. no fevers. Objective - Constitutional Vitals: Vital Signs Temp Pulse Resp BP Pulse Ox 98.4 F 82 18 89/48 95 10/28/18 07:39 10/28/18 06:00 10/28/18 07:39 10/28/18 07:39 10/28/18 03:18 Temperature -Last 24 Hours Temperature 98.4 F Temperature 100.2 F Temperature 98.1 F Temperature 97.7 F Temperature 97.9 F Temperature 97.9 F Temperature 97.9 F - Labs CBC & Chem 7: 10/28/18 05:58 10/28/18 05:58 Labs: Abnormal lab results 10/27/18 10/27/18 10/27/18 Range/Units 06:20 11:19 16:40 WBC (4.5-11.0) K/mm3 RBC (3.65-5.03) M/mm3 Hgb (10.1-14.3) gm/dl Hct (30.3-42.9) % RDW (13.2-15.2) % Chloride (98-107) mmol/L BUN (7-17) mg/dL Creatinine (0.7-1.2) mg/dL Glucose (65-100) mg/dL POC Glucose 368 H 331 H 348 H (70-105) Calcium (8.4-10.2) mg/dL 10/28/18 10/28/18 Range/Units 05:58 05:58 WBC 12.5 H (4.5-11.0) K/mm3 RBC 2.82 L (3.65-5.03) M/mm3 Hgb 8.7 L (10.1-14.3) gm/dl Hct 26.7 L (30.3-42.9) % RDW 16.2 H (13.2-15.2) % Chloride 93.7 L (98-107) mmol/L BUN 55 H (7-17) mg/dL Creatinine 5.3 H (0.7-1.2) mg/dL Glucose 286 H (65-100) mg/dL POC Glucose (70-105) Calcium 8.3 L (8.4-10.2) mg/dL
[2018-10-28] MEDS ORDERED: NACL 0.9% 500 ML 500 ML IV ONE ×2 (14:10→18:00)
--- NOTE | 2018-10-28 14:44 | Progress Note ---
Assessment and Plan Pt sleeping not responding to verbal stimuli. Pt is on 2L O2 saturation 95%. No acute respiratory distress. Patient afebrile with mild leukocytosis. Ultrasound of chest reported small bilateral pleural effusions. No change in patients general condition.. - Patient Problems (1) Pneumonia Current Visit: Yes Status: Acute Plan to address problem: Chest Xray reported increasing right basilar effusion/volume loss Recommend blood cultures and start on antibiotics (2) Acute CVA (cerebrovascular accident) Current Visit: Yes Status: Acute Plan to address problem: management as per neurology (3) Acute encephalopathy Current Visit: Yes Status: Acute Plan to address problem: management as per primary care (4) Acute on chronic renal failure Current Visit: Yes Status: Acute Qualifiers: Acute renal failure type: with acute tubular necrosis Chronic kidney disease stage: stage 5, not on chronic dialysis Qualified Code(s): N17.0 - Acute kidney failure with tubular necrosis; N18.5 - Chronic kidney disease, stage 5 Plan to address problem: management as per nephrology (5) Hypertension Current Visit: Yes Status: Chronic Qualifiers: Hypertension type: essential hypertension Qualified Code(s): I10 - Essential (primary) hypertension Plan to address problem: management as per primary care (6) Seizure disorder Current Visit: Yes Status: Chronic Plan to address problem: management as per primary (7) Diabetes mellitus Current Visit: No Status: Acute Plan to address problem: management as per primary (8) Bilateral pleural effusion Current Visit: Yes Status: Acute Plan to address problem: Ultrasound of the chest reported small bilateral pleural effusions. Subjective Date of service: 10/28/18 Principal diagnosis: h/o low plt Interval history: Pt sleeping not responding to verbal stimuli. Pt is on 2L O2 saturation 95%. No acute respiratory distress. Patient afebrile with mild leukocytosis. Ultrasound of chest reported small bilateral pleural effusions. No change in patients general condition. Objective Vital Signs - 12hr 10/28/18 10/28/18 10/28/18 03:18 06:00 07:39 Temperature 100.2 F H 98.4 F Pulse Rate 81 82 Respiratory 20 18 Rate Blood Pressure 91/56 89/48 Blood Pressure [Left] O2 Sat by Pulse 95 Oximetry 10/28/18 10/28/18 10/28/18 10:00 11:56 13:43 Temperature 97.5 F L 100.3 F H Pulse Rate 79 Respiratory 16 18 16 Rate Blood Pressure 82/48 Blood Pressure 83/50 [Left] O2 Sat by Pulse Oximetry Constitutional: no acute distress, asleep Eyes: non-icteric ENT: oropharynx moist Neck: supple, no lymphadenopathy Ascultation: Bilateral: clear Cardiovascular: regular rate and rhythm Gastrointestinal: normoactive bowel sounds, soft, non-tender Integumentary: normal Neurologic: other (patient sleeping) Psychiatric: other (patient sleeping) CBC and BMP: 10/28/18 05:58 10/28/18 05:58 ABG, PT/INR, D-dimer: ABG POC ABG pH 7.436 (7.35-7.45) 10/23/18 20:51 POC ABG pCO2 34.3 (35-45) L 10/23/18 20:51 POC ABG pO2 95 (80-105) 10/23/18 20:51 POC ABG HCO3 23.1 (22-26 mml/L) 10/23/18 20:51 POC ABG Total CO2 24 (23-27mmol/L) 10/23/18 20:51 POC ABG O2 Sat 98 10/23/18 20:51 PT/INR, D-dimer PT 20.6 Sec. (12.2-14.9) H 10/17/18 10:19 INR 1.81 (0.87-1.13) H 10/17/18 10:19 Abnormal lab findings: Abnormal Labs 10/17/18 10/17/18 10/17/18 10:16 10:19 10:19 WBC RBC Hgb Hct MCV RDW Plt Count Lymph % (Auto) 9.5 L [place] % (Auto) Lymph # 1.0 L [place] # Seg Neutrophils % 84.7 H Seg Neuts % (Manual) Lymphocytes % (Manual) Monocytes % (Manual) Nucleated RBC % Seg Neutrophils # 8.7 H Seg Neutrophils # Man Lymphocytes # (Manual) PT 20.6 H INR 1.81 H POC ABG pH POC ABG pCO2 POC ABG pO2 Sodium Potassium Chloride Carbon Dioxide BUN Creatinine Glucose POC Glucose 277 H Calcium Phosphorus TIBC Ferritin AST ALT Alkaline Phosphatase Lactate Dehydrogenase Total Creatine Kinase Troponin T C-Reactive Protein Serum Total Protein Total Protein Albumin Oynll-2-Pheswqbbo PEP Interpretation HDL Cholesterol Vitamin B12 Urine Creatinine Ur Creatinine 24 Hour Urine Total Protein Salicylates Acetaminophen 10/17/18 10/17/18 10/17/18 13:14 13:16 13:34 WBC RBC Hgb Hct MCV RDW Plt Count Lymph % (Auto) [place] % (Auto) Lymph # [place] # Seg Neutrophils % Seg Neuts % (Manual) Lymphocytes % (Manual) Monocytes % (Manual) Nucleated RBC % Seg Neutrophils # Seg Neutrophils # Man Lymphocytes # (Manual) PT INR POC ABG pH POC ABG pCO2 POC ABG pO2 Sodium Potassium Chloride Carbon Dioxide BUN Creatinine Glucose POC Glucose 330 H Calcium Phosphorus TIBC Ferritin AST ALT Alkaline Phosphatase Lactate Dehydrogenase Total Creatine Kinase Troponin T C-Reactive Protein Serum Total Protein Total Protein Albumin Mkner-6-Pzinwdjyd PEP Interpretation HDL Cholesterol Vitamin B12 Urine Creatinine 276.0 H 271.1 H Ur Creatinine 24 Hour Urine Total Protein 191 H Salicylates Acetaminophen 10/17/18 10/17/18 10/17/18 15:15 21:03 Unknown WBC RBC Hgb Hct MCV RDW Plt Count Lymph % (Auto) [place] % (Auto) Lymph # [place] # Seg Neutrophils % Seg Neuts % (Manual) Lymphocytes % (Manual) Monocytes % (Manual) Nucleated RBC % Seg Neutrophils # Seg Neutrophils # Man Lymphocytes # (Manual) PT INR POC ABG pH POC ABG pCO2 POC ABG pO2 Sodium Potassium 6.6 H* Chloride Carbon Dioxide 10 L BUN 111 H Creatinine 6.5 H Glucose 351 H POC Glucose 143 H Calcium Phosphorus TIBC Ferritin AST ALT Alkaline Phosphatase Lactate Dehydrogenase Total Creatine Kinase 3216 H Troponin T 4.720 H* C-Reactive Protein Serum Total Protein Total Protein Albumin Btaaa-2-Hacerteaj PEP Interpretation HDL Cholesterol 88 H Vitamin B12 Urine Creatinine Ur Creatinine 24 Hour Urine Total Protein Salicylates Acetaminophen 10/17/18 10/17/18 10/18/18 Unknown Unknown 07:29 WBC RBC Hgb Hct MCV RDW Plt Count Lymph % (Auto) [place] % (Auto) Lymph # [place] # Seg Neutrophils % Seg Neuts % (Manual) Lymphocytes % (Manual) Monocytes % (Manual) Nucleated RBC % Seg Neutrophils # Seg Neutrophils # Man Lymphocytes # (Manual) PT INR POC ABG pH POC ABG pCO2 POC ABG pO2 Sodium Potassium Chloride Carbon Dioxide BUN Creatinine Glucose POC Glucose 120 H Calcium Phosphorus TIBC Ferritin AST ALT Alkaline Phosphatase Lactate Dehydrogenase Total Creatine Kinase Troponin T C-Reactive Protein Serum Total Protein Total Protein Albumin Whumb-9-Vkyhtlwnd PEP Interpretation HDL Cholesterol Vitamin B12 Urine Creatinine Ur Creatinine 24 Hour Urine Total Protein Salicylates < 0.3 L Acetaminophen < 5.0 L 10/18/18 10/18/18 10/18/18 09:09 09:09 12:21 WBC RBC 3.28 L Hgb Hct MCV RDW Plt Count 125 L Lymph % (Auto) 13.2 L [place] % (Auto) Lymph # 1.1 L [place] # Seg Neutrophils % 80.7 H Seg Neuts % (Manual) Lymphocytes % (Manual) Monocytes % (Manual) Nucleated RBC % Seg Neutrophils # Seg Neutrophils # Man Lymphocytes # (Manual) PT INR POC ABG pH POC ABG pCO2 POC ABG pO2 Sodium Potassium Chloride 97.9 L Carbon Dioxide 20 L D BUN 38 H Creatinine 3.2 H D Glucose 207 H POC Glucose 180 H Calcium Phosphorus TIBC Ferritin AST ALT Alkaline Phosphatase Lactate Dehydrogenase Total Creatine Kinase Troponin T C-Reactive Protein Serum Total Protein Total Protein Albumin Bgcjj-9-Gbdlarwrg PEP Interpretation HDL Cholesterol Vitamin B12 Urine Creatinine Ur Creatinine 24 Hour Urine Total Protein Salicylates Acetaminophen 10/18/18 10/18/18 10/19/18 17:14 20:50 05:20 WBC RBC 3.46 L Hgb Hct MCV 98 H RDW 16.4 H Plt Count 55 L Lymph % (Auto) [place] % (Auto) Lymph # [place] # Seg Neutrophils % Seg Neuts % (Manual) Lymphocytes % (Manual) Monocytes % (Manual) 9.0 H Nucleated RBC % 4.0 H Seg Neutrophils # Seg Neutrophils # Man Lymphocytes # (Manual) PT INR POC ABG pH POC ABG pCO2 POC ABG pO2 Sodium Potassium Chloride Carbon Dioxide BUN Creatinine Glucose POC Glucose 256 H 335 H Calcium Phosphorus TIBC Ferritin AST ALT Alkaline Phosphatase Lactate Dehydrogenase Total Creatine Kinase Troponin T C-Reactive Protein Serum Total Protein Total Protein Albumin Zwxxt-6-Arhqbpcnb PEP Interpretation HDL Cholesterol Vitamin B12 Urine Creatinine Ur Creatinine 24 Hour Urine Total Protein Salicylates Acetaminophen 10/19/18 10/19/18 10/19/18 05:20 08:34 08:34 WBC RBC Hgb Hct MCV RDW Plt Count Lymph % (Auto) [place] % (Auto) Lymph # [place] # Seg Neutrophils % Seg Neuts % (Manual) Lymphocytes % (Manual) Monocytes % (Manual) Nucleated RBC % Seg Neutrophils # Seg Neutrophils # Man Lymphocytes # (Manual) PT INR POC ABG pH POC ABG pCO2 POC ABG pO2 Sodium Potassium Chloride Carbon Dioxide 21 L BUN 52 H Creatinine 4.2 H Glucose 106 H POC Glucose Calcium Phosphorus TIBC 193 L Ferritin 2450.0 H AST ALT Alkaline Phosphatase Lactate Dehydrogenase 892 H Total Creatine Kinase Troponin T C-Reactive Protein Serum Total Protein Total Protein Albumin Icglg-0-Oktysbapz PEP Interpretation HDL Cholesterol Vitamin B12 Urine Creatinine Ur Creatinine 24 Hour Urine Total Protein Salicylates Acetaminophen 10/19/18 10/19/18 10/19/18 08:34 09:06 13:41 WBC RBC Hgb Hct MCV RDW Plt Count Lymph % (Auto) [place] % (Auto) Lymph # [place] # Seg Neutrophils % Seg Neuts % (Manual) Lymphocytes % (Manual) Monocytes % (Manual) Nucleated RBC % Seg Neutrophils # Seg Neutrophils # Man Lymphocytes # (Manual) PT INR POC ABG pH POC ABG pCO2 POC ABG pO2 Sodium Potassium Chloride Carbon Dioxide BUN Creatinine Glucose POC Glucose 141 H 156 H Calcium Phosphorus TIBC Ferritin AST ALT Alkaline Phosphatase Lactate Dehydrogenase Total Creatine Kinase Troponin T C-Reactive Protein Serum Total Protein Total Protein Albumin Leqyz-7-Wjuhoekkc PEP Interpretation HDL Cholesterol Vitamin B12 1296 H Urine Creatinine Ur Creatinine 24 Hour Urine Total Protein Salicylates Acetaminophen 10/19/18 10/19/18 10/20/18 15:53 22:51 05:07 WBC RBC 3.23 L Hgb 10.0 L Hct MCV RDW 15.7 H Plt Count 111 L D Lymph % (Auto) [place] % (Auto) 8.0 H Lymph # [place] # Seg Neutrophils % Seg Neuts % (Manual) Lymphocytes % (Manual) Monocytes % (Manual) Nucleated RBC % Seg Neutrophils # Seg Neutrophils # Man Lymphocytes # (Manual) PT INR POC ABG pH POC ABG pCO2 POC ABG pO2 Sodium Potassium Chloride Carbon Dioxide BUN Creatinine Glucose POC Glucose 193 H 228 H Calcium Phosphorus TIBC Ferritin AST ALT Alkaline Phosphatase Lactate Dehydrogenase Total Creatine Kinase Troponin T C-Reactive Protein Serum Total Protein Total Protein Albumin Kmseb-0-Mqrqjuwtw PEP Interpretation HDL Cholesterol Vitamin B12 Urine Creatinine Ur Creatinine 24 Hour Urine Total Protein Salicylates Acetaminophen 10/20/18 10/20/18 10/20/18 05:07 05:07 10:44 WBC RBC Hgb Hct MCV RDW Plt Count Lymph % (Auto) [place] % (Auto) Lymph # [place] # Seg Neutrophils % Seg Neuts % (Manual) Lymphocytes % (Manual) Monocytes % (Manual) Nucleated RBC % Seg Neutrophils # Seg Neutrophils # Man Lymphocytes # (Manual) PT INR POC ABG pH POC ABG pCO2 POC ABG pO2 Sodium Potassium Chloride Carbon Dioxide BUN 32 H Creatinine 3.2 H Glucose 177 H POC Glucose 160 H Calcium 8.0 L Phosphorus TIBC Ferritin AST 305 H ALT 728 H Alkaline Phosphatase 402 H Lactate Dehydrogenase Total Creatine Kinase Troponin T C-Reactive Protein Serum Total Protein 5.5 L Total Protein 6.0 L Albumin 2.9 L 2.7 L Hlgvd-5-Clddiemeb 0.4 H PEP Interpretation see below H HDL Cholesterol Vitamin B12 Urine Creatinine Ur Creatinine 24 Hour Urine Total Protein Salicylates Acetaminophen 10/20/18 10/20/18 10/20/18 13:45 17:19 20:44 WBC RBC Hgb Hct MCV RDW Plt Count Lymph % (Auto) [place] % (Auto) Lymph # [place] # Seg Neutrophils % Seg Neuts % (Manual) Lymphocytes % (Manual) Monocytes % (Manual) Nucleated RBC % Seg Neutrophils # Seg Neutrophils # Man Lymphocytes # (Manual) PT INR POC ABG pH POC ABG pCO2 POC ABG pO2 Sodium Potassium Chloride Carbon Dioxide BUN Creatinine Glucose POC Glucose 143 H 234 H Calcium Phosphorus TIBC Ferritin AST ALT Alkaline Phosphatase Lactate Dehydrogenase Total Creatine Kinase Troponin T C-Reactive Protein Serum Total Protein Total Protein Albumin Cxuel-1-Zdxvcczer PEP Interpretation HDL Cholesterol Vitamin B12 Urine Creatinine 157.6 H Ur Creatinine 24 Hour Urine Total Protein Salicylates Acetaminophen 10/21/18 10/21/18 10/21/18 05:57 05:57 07:55 WBC RBC 3.16 L Hgb 10.0 L Hct 29.9 L MCV RDW 15.4 H Plt Count 125 L Lymph % (Auto) [place] % (Auto) 9.6 H Lymph # [place] # Seg Neutrophils % 71.3 H Seg Neuts % (Manual) Lymphocytes % (Manual) Monocytes % (Manual) Nucleated RBC % Seg Neutrophils # Seg Neutrophils # Man Lymphocytes # (Manual) PT INR POC ABG pH POC ABG pCO2 POC ABG pO2 Sodium Potassium Chloride Carbon Dioxide BUN 47 H Creatinine 4.9 H D Glucose 229 H POC Glucose 239 H Calcium 8.0 L Phosphorus TIBC Ferritin AST ALT Alkaline Phosphatase Lactate Dehydrogenase Total Creatine Kinase Troponin T C-Reactive Protein Serum Total Protein Total Protein Albumin Pdkmb-1-Bgumwjfou PEP Interpretation HDL Cholesterol Vitamin B12 Urine Creatinine Ur Creatinine 24 Hour Urine Total Protein Salicylates Acetaminophen 10/21/18 10/21/18 10/21/18 12:05 15:40 18:19 WBC RBC Hgb Hct MCV RDW Plt Count Lymph % (Auto) [place] % (Auto) Lymph # [place] # Seg Neutrophils % Seg Neuts % (Manual) Lymphocytes % (Manual) Monocytes % (Manual) Nucleated RBC % Seg Neutrophils # Seg Neutrophils # Man Lymphocytes # (Manual) PT INR POC ABG pH POC ABG pCO2 POC ABG pO2 Sodium Potassium Chloride Carbon Dioxide BUN Creatinine Glucose POC Glucose 446 H 263 H Calcium Phosphorus TIBC Ferritin AST ALT Alkaline Phosphatase Lactate Dehydrogenase Total Creatine Kinase Troponin T C-Reactive Protein Serum Total Protein Total Protein Albumin Omwrk-2-Dpijrnrlo PEP Interpretation HDL Cholesterol Vitamin B12 Urine Creatinine 196.7 H Ur Creatinine 24 Hour 0.1 L Urine Total Protein Salicylates Acetaminophen 10/22/18 10/22/18 10/22/18 00:45 06:24 06:24 WBC RBC 3.17 L Hgb 9.9 L Hct MCV RDW 15.7 H Plt Count 134 L Lymph % (Auto) [place] % (Auto) Lymph # [place] # Seg Neutrophils % Seg Neuts % (Manual) 78.0 H Lymphocytes % (Manual) Monocytes % (Manual) Nucleated RBC % Seg Neutrophils # Seg Neutrophils # Man 8.3 H Lymphocytes # (Manual) PT INR POC ABG pH POC ABG pCO2 POC ABG pO2 Sodium Potassium Chloride Carbon Dioxide BUN 33 H Creatinine 3.9 H Glucose 171 H POC Glucose 179 H Calcium Phosphorus TIBC Ferritin AST ALT Alkaline Phosphatase Lactate Dehydrogenase Total Creatine Kinase Troponin T C-Reactive Protein Serum Total Protein Total Protein Albumin Yrxmm-0-Fnlgjixeg PEP Interpretation HDL Cholesterol Vitamin B12 Urine Creatinine Ur Creatinine 24 Hour Urine Total Protein Salicylates Acetaminophen 10/22/18 10/22/18 10/22/18 12:47 18:33 21:58 WBC RBC Hgb Hct MCV RDW Plt Count Lymph % (Auto) [place] % (Auto) Lymph # [place] # Seg Neutrophils % Seg Neuts % (Manual) Lymphocytes % (Manual) Monocytes % (Manual) Nucleated RBC % Seg Neutrophils # Seg Neutrophils # Man Lymphocytes # (Manual) PT INR POC ABG pH POC ABG pCO2 POC ABG pO2 Sodium Potassium Chloride Carbon Dioxide BUN Creatinine Glucose POC Glucose 210 H 176 H 230 H Calcium Phosphorus TIBC Ferritin AST ALT Alkaline Phosphatase Lactate Dehydrogenase Total Creatine Kinase Troponin T C-Reactive Protein Serum Total Protein Total Protein Albumin Ajrpb-8-Huzugzcxh PEP Interpretation HDL Cholesterol Vitamin B12 Urine Creatinine Ur Creatinine 24 Hour Urine Total Protein Salicylates Acetaminophen 10/23/18 10/23/18 10/23/18 05:24 05:24 07:31 WBC RBC 3.49 L Hgb Hct MCV RDW 16.7 H Plt Count Lymph % (Auto) [place] % (Auto) Lymph # [place] # Seg Neutrophils % Seg Neuts % (Manual) 88.0 H Lymphocytes % (Manual) 6.0 L Monocytes % (Manual) Nucleated RBC % Seg Neutrophils # Seg Neutrophils # Man 9.3 H Lymphocytes # (Manual) 0.6 L PT INR POC ABG pH POC ABG pCO2 POC ABG pO2 Sodium Potassium Chloride Carbon Dioxide BUN 49 H Creatinine 5.0 H Glucose 211 H POC Glucose 137 H Calcium Phosphorus 5.30 H D TIBC Ferritin AST ALT Alkaline Phosphatase Lactate Dehydrogenase Total Creatine Kinase Troponin T C-Reactive Protein Serum Total Protein Total Protein Albumin Shxvp-7-Kswxaqcom PEP Interpretation HDL Cholesterol Vitamin B12 Urine Creatinine Ur Creatinine 24 Hour Urine Total Protein Salicylates Acetaminophen 10/23/18 10/23/18 10/23/18 11:50 11:51 14:59 WBC RBC Hgb Hct MCV RDW Plt Count Lymph % (Auto) [place] % (Auto) Lymph # [place] # Seg Neutrophils % Seg Neuts % (Manual) Lymphocytes % (Manual) Monocytes % (Manual) Nucleated RBC % Seg Neutrophils # Seg Neutrophils # Man Lymphocytes # (Manual) PT INR POC ABG pH 7.346 L POC ABG pCO2 POC ABG pO2 116 H Sodium Potassium Chloride Carbon Dioxide BUN Creatinine Glucose POC Glucose 232 H Calcium Phosphorus TIBC Ferritin AST ALT Alkaline Phosphatase Lactate Dehydrogenase Total Creatine Kinase Troponin T C-Reactive Protein 24.10 H Serum Total Protein Total Protein Albumin Fqvxd-9-Ucgtacqxw PEP Interpretation HDL Cholesterol Vitamin B12 Urine Creatinine Ur Creatinine 24 Hour Urine Total Protein Salicylates Acetaminophen 10/23/18 10/23/18 10/23/18 18:29 20:51 23:37 WBC RBC Hgb Hct MCV RDW Plt Count Lymph % (Auto) [place] % (Auto) Lymph # [place] # Seg Neutrophils % Seg Neuts % (Manual) Lymphocytes % (Manual) Monocytes % (Manual) Nucleated RBC % Seg Neutrophils # Seg Neutrophils # Man Lymphocytes # (Manual) PT INR POC ABG pH POC ABG pCO2 34.3 L POC ABG pO2 Sodium Potassium Chloride Carbon Dioxide BUN Creatinine Glucose POC Glucose 182 H 232 H Calcium Phosphorus TIBC Ferritin AST ALT Alkaline Phosphatase Lactate Dehydrogenase Total Creatine Kinase Troponin T C-Reactive Protein Serum Total Protein Total Protein Albumin Vrxoj-0-Pukmljsvh PEP Interpretation HDL Cholesterol Vitamin B12 Urine Creatinine Ur Creatinine 24 Hour Urine Total Protein Salicylates Acetaminophen 10/24/18 10/24/18 10/24/18 04:50 04:50 07:44 WBC RBC 3.13 L Hgb 9.7 L Hct MCV RDW 16.8 H Plt Count 132 L Lymph % (Auto) [place] % (Auto) Lymph # [place] # Seg Neutrophils % Seg Neuts % (Manual) 79.0 H Lymphocytes % (Manual) 11.0 L Monocytes % (Manual) Nucleated RBC % Seg Neutrophils # Seg Neutrophils # Man 8.7 H Lymphocytes # (Manual) PT INR POC ABG pH POC ABG pCO2 POC ABG pO2 Sodium 136 L Potassium Chloride 94.6 L Carbon Dioxide BUN 25 H Creatinine 3.3 H Glucose 214 H POC Glucose 219 H Calcium Phosphorus TIBC Ferritin AST ALT Alkaline Phosphatase Lactate Dehydrogenase Total Creatine Kinase Troponin T C-Reactive Protein Serum Total Protein Total Protein Albumin Vrhzz-8-Ofvqpworb PEP Interpretation HDL Cholesterol Vitamin B12 Urine Creatinine Ur Creatinine 24 Hour Urine Total Protein Salicylates Acetaminophen 10/24/18 10/24/18 10/24/18 11:52 18:25 21:12 WBC RBC Hgb Hct MCV RDW Plt Count Lymph % (Auto) [place] % (Auto) Lymph # [place] # Seg Neutrophils % Seg Neuts % (Manual) Lymphocytes % (Manual) Monocytes % (Manual) Nucleated RBC % Seg Neutrophils # Seg Neutrophils # Man Lymphocytes # (Manual) PT INR POC ABG pH POC ABG pCO2 POC ABG pO2 Sodium Potassium Chloride Carbon Dioxide BUN Creatinine Glucose POC Glucose 290 H 113 H 123 H Calcium Phosphorus TIBC Ferritin AST ALT Alkaline Phosphatase Lactate Dehydrogenase Total Creatine Kinase Troponin T C-Reactive Protein Serum Total Protein Total Protein Albumin Yourl-9-Yjfcyeqcq PEP Interpretation HDL Cholesterol Vitamin B12 Urine Creatinine Ur Creatinine 24 Hour Urine Total Protein Salicylates Acetaminophen 10/25/18 10/25/18 10/25/18 06:29 11:31 12:28 WBC RBC Hgb Hct MCV RDW Plt Count Lymph % (Auto) [place] % (Auto) Lymph # [place] # Seg Neutrophils % Seg Neuts % (Manual) Lymphocytes % (Manual) Monocytes % (Manual) Nucleated RBC % Seg Neutrophils # Seg Neutrophils # Man Lymphocytes # (Manual) PT INR POC ABG pH POC ABG pCO2 POC ABG pO2 Sodium Potassium Chloride 94.1 L Carbon Dioxide BUN 42 H Creatinine 4.8 H Glucose 192 H POC Glucose 208 H 225 H Calcium Phosphorus TIBC Ferritin AST ALT Alkaline Phosphatase Lactate Dehydrogenase Total Creatine Kinase Troponin T C-Reactive Protein Serum Total Protein Total Protein Albumin Kxgeq-8-Jjyuukotw PEP Interpretation HDL Cholesterol Vitamin B12 Urine Creatinine Ur Creatinine 24 Hour Urine Total Protein Salicylates Acetaminophen 10/25/18 10/25/18 10/26/18 16:16 23:38 05:49 WBC RBC Hgb Hct MCV RDW Plt Count Lymph % (Auto) [place] % (Auto) Lymph # [place] # Seg Neutrophils % Seg Neuts % (Manual) Lymphocytes % (Manual) Monocytes % (Manual) Nucleated RBC % Seg Neutrophils # Seg Neutrophils # Man Lymphocytes # (Manual) PT INR POC ABG pH POC ABG pCO2 POC ABG pO2 Sodium Potassium Chloride Carbon Dioxide BUN Creatinine Glucose POC Glucose 228 H 312 H 246 H Calcium Phosphorus TIBC Ferritin AST ALT Alkaline Phosphatase Lactate Dehydrogenase Total Creatine Kinase Troponin T C-Reactive Protein Serum Total Protein Total Protein Albumin Mjmnd-2-Laezcrqom PEP Interpretation HDL Cholesterol Vitamin B12 Urine Creatinine Ur Creatinine 24 Hour Urine Total Protein Salicylates Acetaminophen 10/26/18 10/26/18 10/26/18 06:13 06:13 09:17 WBC 12.3 H RBC 3.35 L Hgb Hct MCV RDW 16.4 H Plt Count Lymph % (Auto) 8.4 L [place] % (Auto) 10.7 H Lymph # 1.0 L [place] # 1.3 H Seg Neutrophils % 80.4 H Seg Neuts % (Manual) Lymphocytes % (Manual) Monocytes % (Manual) Nucleated RBC % Seg Neutrophils # 9.9 H Seg Neutrophils # Man Lymphocytes # (Manual) PT INR POC ABG pH POC ABG pCO2 POC ABG pO2 Sodium 136 L Potassium Chloride 91.7 L Carbon Dioxide BUN 54 H Creatinine 6.0 H Glucose 247 H POC Glucose 252 H Calcium Phosphorus TIBC Ferritin AST ALT Alkaline Phosphatase 251 H Lactate Dehydrogenase 458 H Total Creatine Kinase Troponin T C-Reactive Protein Serum Total Protein Total Protein 5.9 L Albumin 3.0 L Ylunf-7-Hzlyqudkj PEP Interpretation HDL Cholesterol Vitamin B12 Urine Creatinine Ur Creatinine 24 Hour Urine Total Protein Salicylates Acetaminophen 10/26/18 10/27/18 10/27/18 15:31 00:37 06:20 WBC RBC Hgb Hct MCV RDW Plt Count Lymph % (Auto) [place] % (Auto) Lymph # [place] # Seg Neutrophils % Seg Neuts % (Manual) Lymphocytes % (Manual) Monocytes % (Manual) Nucleated RBC % Seg Neutrophils # Seg Neutrophils # Man Lymphocytes # (Manual) PT INR POC ABG pH POC ABG pCO2 POC ABG pO2 Sodium Potassium Chloride Carbon Dioxide BUN Creatinine Glucose POC Glucose 265 H 308 H 368 H Calcium Phosphorus TIBC Ferritin AST ALT Alkaline Phosphatase Lactate Dehydrogenase Total Creatine Kinase Troponin T C-Reactive Protein Serum Total Protein Total Protein Albumin Rtfqt-9-Etkonbhxu PEP Interpretation HDL Cholesterol Vitamin B12 Urine Creatinine Ur Creatinine 24 Hour Urine Total Protein Salicylates Acetaminophen 10/27/18 10/27/18 10/28/18 11:19 16:40 05:58 WBC 12.5 H RBC 2.82 L Hgb 8.7 L Hct 26.7 L MCV RDW 16.2 H Plt Count Lymph % (Auto) [place] % (Auto) Lymph # [place] # Seg Neutrophils % Seg Neuts % (Manual) Lymphocytes % (Manual) Monocytes % (Manual) Nucleated RBC % Seg Neutrophils # Seg Neutrophils # Man Lymphocytes # (Manual) PT INR POC ABG pH POC ABG pCO2 POC ABG pO2 Sodium Potassium Chloride Carbon Dioxide BUN Creatinine Glucose POC Glucose 331 H 348 H Calcium Phosphorus TIBC Ferritin AST ALT Alkaline Phosphatase Lactate Dehydrogenase Total Creatine Kinase Troponin T C-Reactive Protein Serum Total Protein Total Protein Albumin Myoki-0-Ixkwezkzj PEP Interpretation HDL Cholesterol Vitamin B12 Urine Creatinine Ur Creatinine 24 Hour Urine Total Protein Salicylates Acetaminophen 10/28/18 05:58 WBC RBC Hgb Hct MCV RDW Plt Count Lymph % (Auto) [place] % (Auto) Lymph # [place] # Seg Neutrophils % Seg Neuts % (Manual) Lymphocytes % (Manual) Monocytes % (Manual) Nucleated RBC % Seg Neutrophils # Seg Neutrophils # Man Lymphocytes # (Manual) PT INR POC ABG pH POC ABG pCO2 POC ABG pO2 Sodium Potassium Chloride 93.7 L Carbon Dioxide BUN 55 H Creatinine 5.3 H Glucose 286 H POC Glucose Calcium 8.3 L Phosphorus TIBC Ferritin AST ALT Alkaline Phosphatase Lactate Dehydrogenase Total Creatine Kinase Troponin T C-Reactive Protein Serum Total Protein Total Protein Albumin Lxixx-3-Natsamrsc PEP Interpretation HDL Cholesterol Vitamin B12 Urine Creatinine Ur Creatinine 24 Hour Urine Total Protein Salicylates Acetaminophen Allied health notes reviewed: nursing
--- NOTE | 2018-10-28 16:35 | Progress Note ---
Assessment and Plan Assessment and plan: Patient is a 63 yo woman with hypertension, dm type 2, gerd, cva, dementia, cad s/p cabg, seizure disorder, OA and CKD 4 (last Cr here was 2.2 on 01/08/2017) who presented to [facility] ED with AMS x 3 days. She was admitted for severe renal failure/uremic encephalopathy with hyperkalemia. Creatinine was found to be 5.6. She underwent emergent Hemodialysis * CT head without contrast IMPRESSION: 1. Recent infarcts in the left MCA and left SPRAY APPLICATOR territories. Although there is no volume loss associated with SPRAY APPLICATOR infarct, the hypoattenuation of the parenchyma and loss of laboy-white differentiation is more conspicuous, suggesting this may be an older infarct. 2. No acute hemorrhage. Report of these findings was called to Dr. Novak in the emergency department at the time of dictation. * pCXR Impression: Increasing right basilar effusion/volume loss * 10/21/2017 EDINSON Conclusions: Left ventricular chamber size is severely dilated, global left ventricular systolic function is severely decreased, estimated EF is 10-15%, RVSF is severely reduced, No ASD, no endocarditis or cardioembolic source * MRI brain without contrast BRAIN / INTRACRANIAL CONTENTS: Multiple ischemic areas seen - the larger areas were seen on recent CT. Branch MCA infarct seen in the middle and inferior frontal gyral region on the left. Branch SPRAY APPLICATOR infarct seen on the left, including calcarine cortex. Small focus of ischemia seen in the left precuneus. There are small foci of ischemia seen in the superior frontal gyrus and paracentral lobule regions on the right, superiorly. Minimal involvement of the genu/rostrum of the corpus callosum is suggested. Punctate involvement seen in the right parietal temporal region. Other, scattered, punctate areas of ischemia may be present as well. Because of these findings, embolic phenomena should be considered. Otherwise, no acute hemorrhage, mass effect, midline shift, hydrocephalus, or acute, large territorial infarct. No chronic infarct or atrophy. Lacunar infarcts suggested in the thalamic regions. There are moderate areas of increased signal intensity on FLAIR imaging in the white matter of the cerebral hemispheres, as well as the gangliocapsular regions. These are nonspecific findings and may be related to microangiopathy (hypertension, diabetes, atherosclerosis), given the patient's age. CRANIOCERVICAL JUNCTION: No significant abnormality. VASCULAR FLOW-VOIDS: No significant abnormality. ORBITS: No significant abnormality of visualized orbits. SINUSES / MASTOIDS: There is mild mucosal thickening with the ethmoids. ADDITIONAL FINDINGS: None. IMPRESSION: 1. Multiple areas of ischemia as described above, worrisome for embolic phenomenon. No evidence of hemorrhagic transformation at this time. * 10/27/2018 CT brain without Impression: IMPRESSION: No acute intracranial proce ss. Evolving ischemic infarcts in the left frontal lobe and left occipital lobe as described. * US chest Impression: Small bilateral pleural effusions AMS most likely due to Acute Embolic Ischemic Strokes/CVA: supportive care, poor prognosis Hypotension: give another bolus and move to ICU restart IV levophed drip. Acute metabolic encephalopathy, poa:work up in process ARF/CKD 4 vasomotor +ATN: hemodialysis started Hyperkalemia: treated with HD, Strategic Partnership Representative following, monitor bmp closely Glaucoma: continue latanoprost eyedrops Vitamin D deficiency: Continue vitamin D Hyperlipidemia: Continue statins Peripheral neuropathy: Continue gabapentin Seizure disorder: Continue Keppra Hypertension: Continue antihypertensives DVT prophylaxis: heparin and GI prophylaxis Disposition: continue inpatient care, was going to SNF but spiked a temp of 101 F on 10/26/18 at 0438 am, this is her second temperature spike, first temp was 10/24/18 @ 0800am of 100.8F. repeat Blood cultures pending, pCXR Impression: Increasing right basilar effusion/volume loss, UA not done because she doesn't make enough urine, She still has thomas and NGT in place. 10/27/18: Consulted ID because patient does have a line 10/28/18: Unable to do HD due to AMS and patient is Hypotensive, really did not respond to 500 ml ns ivf resuscitative bolus. Will transfer back to ICU. Still with low grade temp. I called sister Danay [phone], discussed Hospice, but her main is stopping Hemodialysis poor prognosis CCT 34 minutes Dispo; to snf, case dw with her sister Annabelle at [phone] History Interval history: Patient was seen and examined. Follow-up on current diagnosis of CVA. No overnight events reported to me. Patient is nonverbal. Imaging, nursing note, chart, labs and old chart reviewed. Hospitalist Physical - Physical exam Narrative exam: Gen: ill appearing, chronically disable appearing, lethargic but arousable HEENT: NCAT, EOMI, PERRL, OP Clear Neck: supple, no adenopathy, no thyromegaly, no JVD CVS/Heart: RRR, normal S1S2, pulses present bilaterally Chest/Lungs: CTA B, Symmetrical chest expansion, good air entry bilaterally GI/Abdomen: soft, NTND, good bowel sounds, no guarding or rebound /Bladder: no suprapubic tenderness, no CVA or paraspinal tenderness Extermity/Skin: diffuse hyperpigmented coin lichenification lesion MSK: not following commands Neuro: not following commands Psych: lethargic - Constitutional Vitals: Temp Pulse Resp BP Pulse Ox 100.3 F H 79 16 83/50 95 10/28/18 13:43 10/28/18 13:43 10/28/18 13:43 10/28/18 13:43 10/28/18 03:18 General appearance: Present: no acute distress Results - Labs CBC & Chem 7: 10/28/18 05:58 10/28/18 05:58 Labs: Laboratory Last Values WBC 12.5 K/mm3 (4.5-11.0) H 10/28/18 05:58 RBC 2.82 M/mm3 (3.65-5.03) L 10/28/18 05:58 Hgb 8.7 gm/dl (10.1-14.3) L 10/28/18 05:58 Hct 26.7 % (30.3-42.9) L 10/28/18 05:58 MCV 95 fl (79-97) 10/28/18 05:58 MCH 31 pg (28-32) 10/28/18 05:58 MCHC 33 % (30-34) 10/28/18 05:58 RDW 16.2 % (13.2-15.2) H 10/28/18 05:58 Plt Count 258 K/mm3 (140-440) 10/28/18 05:58 Lymph % (Auto) 8.4 % (13.4-35.0) L 10/26/18 06:13 [place] % (Auto) 10.7 % (0.0-7.3) H 10/26/18 06:13 Eos % (Auto) 0.2 % (0.0-4.3) 10/26/18 06:13 Baso % (Auto) 0.3 % (0.0-1.8) 10/26/18 06:13 Lymph # 1.0 K/mm3 (1.2-5.4) L 10/26/18 06:13 [place] # 1.3 K/mm3 (0.0-0.8) H 10/26/18 06:13 Eos # 0.0 K/mm3 (0.0-0.4) 10/26/18 06:13 Baso # 0.0 K/mm3 (0.0-0.1) 10/26/18 06:13 Add Manual Diff Complete 10/24/18 04:50 Total Counted 100 10/24/18 04:50 Seg Neutrophils % 80.4 % (40.0-70.0) H 10/26/18 06:13 Seg Neuts % (Manual) 79.0 % (40.0-70.0) H 10/24/18 04:50 4.0 % 10/24/18 04:50 11.0 % (13.4-35.0) L 10/24/18 04:50 Reactive Lymphs % (Man) 0 % 10/24/18 04:50 6.0 % (0.0-7.3) 10/24/18 04:50 0 % (0.0-4.3) 10/24/18 04:50 0 % (0.0-1.8) 10/24/18 04:50 0 % 10/24/18 04:50 0 % 10/24/18 04:50 0 % 10/24/18 04:50 0 % 10/24/18 04:50 Nucleated RBC % Not Reportable 10/24/18 04:50 Seg Neutrophils # 9.9 K/mm3 (1.8-7.7) H 10/26/18 06:13 Seg Neutrophils # Man 8.7 K/mm3 (1.8-7.7) H 10/24/18 04:50 Band Neutrophils # 0.4 K/mm3 10/24/18 04:50 1.2 K/mm3 (1.2-5.4) 10/24/18 04:50 Abs React Lymphs (Man) 0.0 K/mm3 10/24/18 04:50 0.7 K/mm3 (0.0-0.8) 10/24/18 04:50 0.0 K/mm3 (0.0-0.4) 10/24/18 04:50 0.0 K/mm3 (0.0-0.1) 10/24/18 04:50 0.0 K/mm3 10/24/18 04:50 0.0 K/mm3 10/24/18 04:50 0.0 K/mm3 10/24/18 04:50 Blast Cells # 0.0 K/mm3 10/24/18 04:50 Pathologist Review 10/24/18 04:50 WBC Morphology Not Reportable 10/23/18 05:24 Hypersegmented Neuts Not Reportable 10/24/18 04:50 Hyposegmented Neuts Not Reportable 10/24/18 04:50 Hypogranular Neuts Not Reportable 10/24/18 04:50 Few 10/24/18 04:50 Not Reportable 10/24/18 04:50 Not Reportable 10/24/18 04:50 Not Reportable 10/24/18 04:50 Not Reportable 10/24/18 04:50 Not Reportable 10/24/18 04:50 Consistent w auto 10/24/18 04:50 Not Reportable 10/24/18 04:50 Plt Clumps, EDTA Not Reportable 10/24/18 04:50 Not Reportable 10/24/18 04:50 Not Reportable 10/24/18 04:50 Not Reportable 10/24/18 04:50 Plt Morphology Comment Not Reportable 10/24/18 04:50 RBC Morphology Not Reportable 10/24/18 04:50 Dimorphic RBCs Not Reportable 10/24/18 04:50 Not Reportable 10/24/18 04:50 Few 10/24/18 04:50 Not Reportable 10/24/18 04:50 1+ 10/24/18 04:50 Not Reportable 10/24/18 04:50 1+ 10/24/18 04:50 Not Reportable 10/24/18 04:50 Not Reportable 10/24/18 04:50 Not Reportable 10/24/18 04:50 Rare 10/24/18 04:50 Not Reportable 10/24/18 04:50 Few 10/24/18 04:50 Not Reportable 10/24/18 04:50 Not Reportable 10/24/18 04:50 Not Reportable 10/24/18 04:50 3+ 10/24/18 04:50 Not Reportable 10/24/18 04:50 Not Reportable 10/24/18 04:50 Not Reportable 10/24/18 04:50 Acanthocytes (Spur) Not Reportable 10/24/18 04:50 Rouleaux Not Reportable 10/24/18 04:50 Not Reportable 10/24/18 04:50 Not Reportable 10/24/18 04:50 Not Reportable 10/24/18 04:50 Not Reportable 10/24/18 04:50 Hem Pathologist Commnt Sent to pathology 10/24/18 04:50 PT 20.6 Sec. (12.2-14.9) H 10/17/18 10:19 INR 1.81 (0.87-1.13) H 10/17/18 10:19 APTT 35.6 Sec. (24.2-36.6) 10/17/18 10:19 18.7 Sec. (15.1-19.6) 10/17/18 10:19 Heparin Anti-Xa, Unfract Negative (Negative) 10/19/18 08:34 POC ABG pH 7.436 (7.35-7.45) 10/23/18 20:51 POC ABG pCO2 34.3 (35-45) L 10/23/18 20:51 POC ABG pO2 95 (80-105) 10/23/18 20:51 POC ABG HCO3 23.1 (22-26 mml/L) 10/23/18 20:51 POC ABG Total CO2 24 (23-27mmol/L) 10/23/18 20:51 POC ABG O2 Sat 98 10/23/18 20:51 POC ABG Base Excess -1 ((-2) - (+3)mmol/L) 10/23/18 20:51 24 % 10/23/18 20:51 Sodium 138 mmol/L (137-145) 10/28/18 05:58 Potassium 3.9 mmol/L (3.6-5.0) 10/28/18 05:58 Chloride 93.7 mmol/L (98-107) L 10/28/18 05:58 Carbon Dioxide 26 mmol/L (22-30) 10/28/18 05:58 22 mmol/L 10/28/18 05:58 BUN 55 mg/dL (7-17) H 10/28/18 05:58 5.3 mg/dL (0.7-1.2) H 10/28/18 05:58 Estimated GFR 10 ml/min 10/28/18 05:58 10 % 10/28/18 05:58 Glucose 286 mg/dL (65-100) H 10/28/18 05:58 POC Glucose 348 (70-105) H 10/27/18 16:40 Lactic Acid 1.30 mmol/L (0.7-2.0) 10/23/18 14:59 Calcium 8.3 mg/dL (8.4-10.2) L 10/28/18 05:58 Phosphorus 5.30 mg/dL (2.5-4.5) H D 10/23/18 05:24 Magnesium 1.90 mg/dL (1.7-2.3) 10/28/18 05:58 Iron 55 ug/dL (37-170) 10/19/18 08:34 TIBC 193 mcg/dL (250-450) L 10/19/18 08:34 2450.0 ng/mL (13.0-400.0) H 10/19/18 08:34 0.50 mg/dL (0.1-1.2) 10/26/18 06:13 AST 36 units/L (5-40) 10/26/18 06:13 ALT 18 units/L (7-56) 10/26/18 06:13 251 units/L (35-129) H 10/26/18 06:13 28.0 umol/L (25-60) 10/26/18 19:36 458 units/L (91-180) H 10/26/18 06:13 3216 units/L (30-135) H 10/17/18 15:15 4.720 ng/mL (0.00-0.029) H* 10/17/18 Unknown 24.10 mg/dL (0.00-1.30) H 10/23/18 14:59 5.5 g/dL (6.1-8.1) L 10/20/18 05:07 5.9 g/dL (6.3-8.2) L 10/26/18 06:13 3.0 g/dL (3.9-5) L 10/26/18 06:13 1.0 % 10/26/18 06:13 0.4 g/dL (0.2-0.3) H 10/20/18 05:07 0.9 g/dL (0.5-0.9) 10/20/18 05:07 0.3 g/dL (0.2-0.5) 10/20/18 05:07 0.8 g/dL (0.8-1.7) 10/20/18 05:07 Abnorm Protein Band 1 see below 10/20/18 05:07 PEP Interpretation see below H 10/20/18 05:07 Triglycerides 102 mg/dL (2-149) 10/17/18 Unknown Cholesterol 198 mg/dL (50-199) 10/17/18 Unknown 116 mg/dL (50-130) 10/17/18 Unknown 88 mg/dL (40-59) H 10/17/18 Unknown 2.25 % 10/17/18 Unknown See scanned result 10/19/18 08:34 Vitamin B12 1296 pg/mL (211-911) H 10/19/18 08:34 8.42 ng/mL (7.3-26.0) 10/19/18 08:34 TSH 1.030 mlU/mL (0.270-4.200) 10/17/18 Unknown Free T4 1.26 ng/dL (0.76-1.46) 10/17/18 Unknown Yellow (Yellow) 10/17/18 11:25 Slightly-cloudy (Clear) 10/17/18 11:25 5.0 (5.0-7.0) 10/17/18 11:25 Ur Specific [place] 1.019 (1.003-1.030) 10/17/18 11:25 100 mg/dl mg/dL (Negative) 10/17/18 11:25 150 mg/dL (Negative) 10/17/18 11:25 Tr mg/dL (Negative) 10/17/18 11:25 Sm (Negative) 10/17/18 11:25 Neg (Negative) 10/17/18 11:25 Neg (Negative) 10/17/18 11:25 < 2.0 mg/dL (<2.0) 10/17/18 11:25 Ur Leukocyte Esterase Tr (Negative) 10/17/18 11:25 3.0 /HPF (0.0-6.0) 10/17/18 11:25 2.0 /HPF (0.0-6.0) 10/17/18 11:25 Few /HPF 10/17/18 11:25 None seen (None Seen) 10/17/18 13:16 60 ml 10/21/18 18:19 196.7 mg/dL (0.1-20.0) H 10/21/18 18:19 Ur Creatinine 24 Hour 0.1 (0.8-2.8) L 10/21/18 18:19 Height (in) 62.0 inches 10/20/18 13:45 Weight (lb) 126.5 lbs 10/20/18 13:45 3 10/20/18 13:45 Protein/Creatinin Ratio 0.69 10/17/18 13:16 12 mmol/L 10/17/18 13:34 191 mg/dL (5-11.8) H 10/17/18 13:16 Salicylates < 0.3 mg/dL (2.8-20.0) L 10/17/18 Unknown Acetaminophen < 5.0 ug/mL (10.0-30.0) L 10/17/18 Unknown Plasma/Serum Alcohol < 0.01 % (0-0.07) 10/17/18 Unknown Immunofix Electrophor see below 10/20/18 05:07 Heparin-induced Plt Ab Negative (Negative) 10/19/18 08:34 UF Heparin High Dose 0 % Release 10/19/18 08:34 KAILYN UFH Low Dose 0.1 0 % Release 10/19/18 08:34 KAILYN UFH Low Dose 0.5 0 % Release 10/19/18 08:34 Hepatitis A IgM Ab Non-reactive (NonReactive) 10/17/18 15:15 Hep Bs Antigen Non-reactive (Negative) 10/17/18 15:15 Hep B Core IgM Ab Non-reactive (NonReactive) 10/17/18 15:15 Non-reactive (NonReactive) 10/17/18 15:15 Rare 10/17/18 15:43 Flexitest 1 10/20/18 10:53 Active Medications - Current Medications Current Medications: Generic Name Dose Route Start Last Admin Trade Name Freq PRN Reason Stop Dose Admin Lipase/Protease/Amylase 1 each 10/25/18 09:18 10/28/18 09:[address] 10,500 Unit FEEDTUBE 1 each PRN PRN Administration For Clogged Feeding Tube Clopidogrel Bisulfate 75 mg 10/21/18 11:00 10/28/18 09:08 Plavix PO 75 mg QDAY ALLEY Administration Docusate Sodium 100 mg 10/24/18 23:45 10/28/18 09:09 Colace FEEDTUBE 100 mg BID ALLEY Administration Ergocalciferol 50,000 unit 10/24/18 10:00 10/24/18 10:42 Vitamin D2 PO 50,000 unit Sa ALLEY Administration Famotidine 20 mg 10/21/18 10:00 10/28/18 09:08 Pepcid PO 20 mg DAILY ALLEY Administration Gabapentin 300 mg 10/17/18 22:00 10/27/18 21:33 Neurontin PO 300 mg QHS ALLEY Administration Sodium Chloride 100 mls @ 999 mls/hr 10/25/18 14:52 Nacl 0.9% IV LESLIE PRN Hypotension Insulin Human Lispro 0 unit 10/24/18 12:00 10/28/18 13:10 Humalog SUB-Q Not Given Q6HR [facility] Protocol Latanoprost 1 drops 10/17/18 18:00 10/27/18 18:10 Latanoprost 0.005% OU 1 drops QPM ALLEY Administration Levetiracetam 500 mg 10/21/18 10:00 10/28/18 09:08 Keppra PO 500 mg BID ALLEY Administration Simple Syrup 15 ml 10/25/18 09:18 Simple Syrup FEEDTUBE PRN PRN Hypoglycemia Simple Syrup 30 ml 10/25/18 09:18 Simple Syrup FEEDTUBE PRN PRN Hypoglycemia Sodium Bicarbonate 325 mg 10/17/18 17:00 10/28/18 09:38 Sodium Bicarbonate PO 325 mg DAILY ALLEY Administration Sodium Bicarbonate 325 mg 10/25/18 09:18 Sodium Bicarbonate FEEDTUBE PRN PRN For Clogged Feeding Tube Nutrition/Malnutrition Assess - Dietary Evaluation Nutrition/Malnutrition Findings: Nutrition Notes Start: 10/18/18 14:28 Freq: Status: Active Protocol: Document 10/26/18 15:43 OH (Rec: 10/26/18 15:50 OH [id number]) Nutrition Notes Initial or Follow up Reassessment Current Diagnosis Acute Kidney Injury,CKD(stage I-IV),Coronary Artery Disease, Diabetes,Hypertension,Heart Failure,Stroke,Hyperlipidemia Other Pertinent Diagnosis PNEUMONIA Current Diet NPO Labs/Tests ALB 3.0 Na 136 K+ 4.7 BUN 54 Cr 6.0 Height 5 ft 2 in Weight 57.6 kg [place] Body Weight (kg) 50.00 BMI 23.2 Subjective/Other Information Pt. to be d/c to [facility] and outpatient dialysis to be continued. Per RN pt had 40 cc residual but no n/v/diarrhea associated with TF. Pt. in dialysis upon RD visit. Burn Absent Trauma Absent #1 Nutrition Diagnosis Inadequate oral intake Is patient on ventilator? No Is Patient Ambulatory and/or Out of Bed No REE-([facility]-confined to bed) 1306.452 Calculation Used for Recommendations [facility] Additional Notes Protein Needs: 69-86g(1.2-1.5g /kg) Fluid Needs: 1 ml/kcal Nutrition Intervention Change Diet Order: TF Nutrition Support: Nepro at 30ml/hr Flush with 120ml q4h Kcal 1,296 Protein (gm) 58 Fluid (mL) 523 Goal #1 Meet at least 80% of kcal and protein needs via TF Anticipated Discharge Needs: Unable to determine at this time Follow-Up By: 10/29/18 Additional Comments Follow for TF start/tolerance, renal labs
[2018-10-28] MEDS: LATANOPROST 0.005% OU SCH (18:00)
[2018-10-28] MEDS ORDERED: LEVOPHED 8 MG in NACL 0.9% 250ML 242 ML IV SCH (18:00)
[2018-10-28] MEDS: NEURONTIN PO SCH (21:41)
[2018-10-29 01:31] LABS: Basophils # (Auto) 0.1 K/mm3 (0.0-0.1); Basophils % (Auto) 0.6 % (0.0-1.8); Eosinophils # (Auto) 0.1 K/mm3 (0.0-0.4); Eosinophils % (Auto) 0.8 % (0.0-4.3); Hematocrit 26.5 % (30.3-42.9); Hemoglobin 8.6 gm/dl (10.1-14.3); Lymphocytes # (Auto) 0.9 K/mm3 (1.2-5.4); Lymphocytes % (Auto) 7.1 % (13.4-35.0); Mean Corpuscular HGB Conc 33 % (30-34); Mean Corpuscular Volume 94 fl (79-97); Monocytes # (Auto) 1.2 K/mm3 (0.0-0.8); Monocytes % (Auto) 9.7 % (0.0-7.3); Platelet Count 256 K/mm3 (140-440); Red Blood Count 2.82 M/mm3 (3.65-5.03); Red Cell Distribution Width 16.2 % (13.2-15.2)
--- NOTE | 2018-10-29 06:55 | Hem/Onc Progress Note ---
Assessment and Plan 1. Elevated LDH. Smear has been evaluated. HIT NEGATIVE, [id number] 90% 2. Renal impairment. Nephrology team following the patient. SPEP normal 3. deficiency investigation. The smear evaluation is being done. The platelet counts at admission were normal and then have gone down. The cause of thrombocytopenia unclear. Her mentation is also not perfect. I will follow the trend of the counts. b12 - folate - iron ferritin normal 4. Cerebrovascular accident?. neurology following. 5. Electrolyte imbalance. 6. Vitamin D deficiency. 8. History of diabetes. 9. History of hypertension. 10. History of seizure. 11. Hyperlipidemia. pt plt have improved - smear - rare schistocytes neurology following - cva low EF Stroke: - Likely cardio-embolic, as b/l infarcts seen on MRI. - MRA head/neck did not reveal any significant stenosis - Echo: EF 10-15%, bubble study negative, LA moderately dilated - EDINSON did not reveal any evidence of intracardiac thrombi. 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 [id number] 90% - less likely TTP plt rare schistocytes HIT neg SPEP no monoclonal band LDH lower - last 400, in past this was 800s will follow pt - Patient Problems (1) Thrombocytopenia Current Visit: Yes Status: Acute Subjective Date of service: 10/29/18 Principal diagnosis: h/o low plt, unresponsive Interval history: opens eyes Objective - Exam Narrative Exam: Pain Not evaluable General appearance no acute distress Performance status -completely disabled Eyes EOM not able to evaluate ENT no nose/ear bleed LNs cervical not palpable Neck Not evaluable Respiratory Normal Breath sounds - CTA anteriorly CVS S1 S2 + Extremities normal temperature/ no edema General GI Soft non tender Rectal deferred Female - deferred Skin warm Musculoskeletal generalized weakness Neurologically OPENS EYES - Constitutional Vitals: Last Vital Signs Temp 99.1 F 10/29/18 04:00 Pulse 72 10/29/18 05:41 Resp 12 10/29/18 05:41 BP 94/64 10/29/18 05:41 Pulse Ox 97 10/29/18 05:41 - Labs Lab Results: Laboratory Results - last 24 hr 10/23/18 10/28/18 10/28/18 11:50 05:58 05:58 WBC 12.5 H RBC 2.82 L Hgb 8.7 L Hct 26.7 L MCV 95 MCH 31 MCHC 33 RDW 16.2 H Plt Count 258 Lymph % (Auto) Schley % (Auto) Eos % (Auto) Baso % (Auto) Lymph # Schley # Eos # Baso # Seg Neutrophils % Seg Neutrophils # Sodium 138 Potassium 3.9 Chloride 93.7 L Carbon Dioxide 26 Anion Gap 22 BUN 55 H Creatinine 5.3 H Estimated GFR 10 BUN/Creatinine Ratio 10 Glucose 286 H POC Glucose 232 H Calcium 8.3 L Magnesium 1.90 10/28/18 10/29/18 18:09 00:56 WBC 12.5 H RBC 2.82 L Hgb 8.6 L Hct 26.5 L MCV 94 MCH 31 MCHC 33 RDW 16.2 H Plt Count 256 Lymph % (Auto) 7.1 L Schley % (Auto) 9.7 H Eos % (Auto) 0.8 Baso % (Auto) 0.6 Lymph # 0.9 L Schley # 1.2 H Eos # 0.1 Baso # 0.1 Seg Neutrophils % 81.8 H Seg Neutrophils # 10.2 H Sodium Potassium Chloride Carbon Dioxide Anion Gap BUN Creatinine Estimated GFR BUN/Creatinine Ratio Glucose POC Glucose 289 H Calcium Magnesium Medications & Allergies - Medications Allergies/Adverse Reactions: Allergies NSAIDS (Non-Steroidal Anti-Inflamma Adverse Reaction (Verified 01/02/17 05:56) Unknown Tetracyclines Adverse Reaction (Verified 09/26/14 12:09) Unknown Home Medications: Home Medications Medication Instructions Recorded Confirmed Last Taken Type Ergocalciferol [Vitamin D2] 50,000 unit PO QWEEK capsule 09/25/16 10/17/18 Unknown Rx Latanoprost 0.005% 1 drop OP QPM 01/02/17 10/17/18 Unknown History Sodium Bicarbonate 325 mg PO DAILY 01/02/17 10/17/18 Unknown History Clopidogrel [Plavix] 75 mg PO DAILY #30 tablet 01/08/17 10/17/18 Unknown Rx Docusate Sodium [Colace CAP] 100 mg PO BID #60 capsule 01/08/17 10/17/18 Unknown Rx Famotidine [Pepcid] 10 mg PO BID #60 tablet 01/08/17 10/17/18 Unknown Rx Gabapentin [Neurontin] 300 mg PO QHS #30 capsule 01/08/17 10/17/18 Unknown Rx Simvastatin [Zocor TAB] 20 mg PO QHS #60 tablet 01/08/17 10/17/18 Unknown Rx glipiZIDE [Glucotrol] 5 mg PO QDDIAB #60 tablet 01/08/17 10/17/18 Unknown Rx hydrALAZINE [Apresoline TAB] 10 mg PO Q8HR #90 tablet 01/08/17 10/17/18 Unknown Rx levETIRAcetam [Keppra TAB] 500 mg PO BID #60 tablet 01/08/17 10/17/18 Unknown Rx Active Medications: Generic Name Dose Route Start Last Admin Trade Name Freq PRN Reason Stop Dose Admin Lipase/Protease/Amylase 1 each 10/25/18 09:18 10/28/18 09:[address] 10,500 Unit FEEDTUBE 1 each PRN PRN Administration For Clogged Feeding Tube Clopidogrel Bisulfate 75 mg 10/21/18 11:00 10/28/18 09:08 Plavix PO 75 mg QDAY ALLEY Administration Ergocalciferol 50,000 unit 10/24/18 10:00 10/24/18 10:42 Vitamin D2 PO 50,000 unit Sa ALLEY Administration Famotidine 20 mg 10/21/18 10:00 10/28/18 09:08 Pepcid PO 20 mg DAILY ALLEY Administration Gabapentin 300 mg 10/17/18 22:00 10/28/18 21:41 Neurontin PO 300 mg QHS ALLEY Administration Sodium Chloride 100 mls @ 999 mls/hr 10/25/18 14:52 Nacl 0.9% IV LESLIE PRN Hypotension Norepinephrine 8 mg/ Sodium 250 mls @ 3.75 mls/hr 10/28/18 18:00 Chloride IV TITR ALLEY Protocol 2 MCG/MIN Insulin Human Lispro 0 unit 10/24/18 12:00 10/28/18 18:00 Humalog SUB-Q 4 unit Q6HR ALLEY Administration Protocol Latanoprost 1 drops 10/17/18 18:00 10/28/18 18:00 Latanoprost 0.005% OU Not Given QPM ALLEY Levetiracetam 500 mg 10/21/18 10:00 10/28/18 21:41 Keppra PO 500 mg BID ALLEY Administration Simple Syrup 15 ml 10/25/18 09:18 Simple Syrup FEEDTUBE PRN PRN Hypoglycemia Simple Syrup 30 ml 10/25/18 09:18 Simple Syrup FEEDTUBE PRN PRN Hypoglycemia Sodium Bicarbonate 325 mg 10/17/18 17:00 10/28/18 09:38 Sodium Bicarbonate PO 325 mg DAILY ALLEY Administration Sodium Bicarbonate 325 mg 10/25/18 09:18 Sodium Bicarbonate FEEDTUBE PRN PRN For Clogged Feeding Tube
[2018-10-29] MEDS: HumaLOG SUB-Q SCH ×4 (07:31→18:21)
--- NOTE | 2018-10-29 09:25 | Progress Note ---
Assessment and Plan Post procedure hypotension, resolved Subacute CVA Acute metabolic encephalopathy ARF/CKD 4 vasomotor +ATN Hyperkalemia: Hx of cad, s/p CABG New onset systolic CHF EF 5-10% Wide complex tachycardia Thrombocytopenia -Cardio-protective measures -Heart failure measures -Supportive HD -VTE prophylaxis -Aspiration precautions, nutrition consult for tube feeding -PT/OT/ST -VTE prophylaxis -Secondary stroke prophylaxis -Life vest -Avoid nephrotoxins Subjective Date of service: 10/29/18 Principal diagnosis: h/o low plt, unresponsive Interval history: Patient is seen today for: Hypotension requiring vasopressor support. Seen and examined at bedside; 24hour events reviewed; nursing and respiratory care staff consulted; no adverse overnight events reported to me; Transferred to ICU for hypotension and low grade fevers with some encephalopathy Vitals, labs,medications, chart reviewed Objective Vital Signs - 12hr 10/28/18 10/28/18 10/28/18 21:30 21:41 21:51 Temperature Pulse Rate 72 74 75 Respiratory 12 16 15 Rate Blood Pressure 84/53 84/53 90/60 Blood Pressure [Left] O2 Sat by Pulse 100 97 98 Oximetry 10/28/18 10/28/18 10/28/18 22:00 22:11 22:21 Temperature Pulse Rate 74 76 75 Respiratory 13 15 16 Rate Blood Pressure 96/61 96/61 100/62 Blood Pressure [Left] O2 Sat by Pulse 100 96 97 Oximetry 10/28/18 10/28/18 10/28/18 22:30 22:41 22:51 Temperature Pulse Rate 75 75 75 Respiratory 18 17 15 Rate Blood Pressure 96/61 96/61 102/62 Blood Pressure [Left] O2 Sat by Pulse 93 92 96 Oximetry 10/28/18 10/28/18 10/28/18 23:00 23:05 23:11 Temperature Pulse Rate 73 76 75 Respiratory 23 14 18 Rate Blood Pressure 101/62 101/62 101/62 Blood Pressure [Left] O2 Sat by Pulse 96 100 99 Oximetry 10/28/18 10/28/18 10/28/18 23:21 23:30 23:41 Temperature Pulse Rate 76 74 77 Respiratory 11 L 7 L 17 Rate Blood Pressure 100/61 98/61 98/61 Blood Pressure [Left] O2 Sat by Pulse 98 99 98 Oximetry 08/14/19 08/14/19 08/15/19 23:46 23:51 00:00 Temperature 99.1 F 98.2 F Pulse Rate 76 77 Respiratory 11 L 17 Rate Blood Pressure 100/65 102/58 Blood Pressure 98/58 [Left] O2 Sat by Pulse 100 100 Oximetry 10/29/18 10/29/18 10/29/18 00:11 00:21 00:30 Temperature Pulse Rate 78 75 76 Respiratory 16 14 17 Rate Blood Pressure 102/58 101/60 98/60 Blood Pressure [Left] O2 Sat by Pulse 99 100 96 Oximetry 10/29/18 10/29/18 10/29/18 00:41 00:51 01:00 Temperature Pulse Rate 75 75 77 Respiratory 11 L 19 15 Rate Blood Pressure 98/60 100/64 107/59 Blood Pressure [Left] O2 Sat by Pulse 98 91 97 Oximetry 10/29/18 10/29/18 10/29/18 01:11 01:21 01:30 Temperature Pulse Rate 75 77 77 Respiratory 13 14 13 Rate Blood Pressure 107/59 100/62 101/63 Blood Pressure [Left] O2 Sat by Pulse 97 98 98 Oximetry 10/29/18 10/29/18 10/29/18 01:41 01:51 02:00 Temperature Pulse Rate 74 76 76 Respiratory 11 L 12 14 Rate Blood Pressure 101/63 108/63 98/58 Blood Pressure [Left] O2 Sat by Pulse 97 97 100 Oximetry 10/29/18 10/29/18 10/29/18 02:11 02:21 02:30 Temperature Pulse Rate 79 77 76 Respiratory 15 21 16 Rate Blood Pressure 98/58 105/62 99/62 Blood Pressure [Left] O2 Sat by Pulse 99 99 99 Oximetry 10/29/18 10/29/18 10/29/18 02:41 02:51 03:00 Temperature Pulse Rate 77 78 75 Respiratory 15 13 14 Rate Blood Pressure 99/62 110/63 106/66 Blood Pressure [Left] O2 Sat by Pulse 98 95 99 Oximetry 10/29/18 10/29/18 10/29/18 03:11 03:21 03:30 Temperature Pulse Rate 76 76 75 Respiratory 14 13 10 L Rate Blood Pressure 106/66 106/63 109/65 Blood Pressure [Left] O2 Sat by Pulse 93 100 Oximetry 10/29/18 10/29/18 10/29/18 03:41 03:51 04:00 Temperature 99.1 F Pulse Rate 76 75 73 Respiratory 13 13 9 L Rate Blood Pressure 109/65 104/65 104/64 Blood Pressure 98/62 [Left] O2 Sat by Pulse 99 95 94 Oximetry 10/29/18 10/29/18 10/29/18 04:11 04:21 04:30 Temperature Pulse Rate 73 73 74 Respiratory 25 H 24 8 L Rate Blood Pressure 104/64 91/54 103/64 Blood Pressure [Left] O2 Sat by Pulse 95 100 98 Oximetry 10/29/18 10/29/18 10/29/18 04:41 04:51 05:00 Temperature Pulse Rate 78 73 73 Respiratory 15 13 16 Rate Blood Pressure 103/64 105/65 87/58 Blood Pressure [Left] O2 Sat by Pulse 98 98 97 Oximetry 10/29/18 10/29/18 10/29/18 05:11 05:21 05:30 Temperature Pulse Rate 75 74 72 Respiratory 12 13 12 Rate Blood Pressure 87/58 91/64 94/64 Blood Pressure [Left] O2 Sat by Pulse 98 99 97 Oximetry 10/29/18 10/29/18 10/29/18 05:41 06:00 06:30 Temperature Pulse Rate 72 74 73 Respiratory 12 12 13 Rate Blood Pressure 94/64 94/64 102/63 Blood Pressure [Left] O2 Sat by Pulse 97 100 94 Oximetry 10/29/18 10/29/18 10/29/18 07:00 07:30 08:00 Temperature 97.9 F Pulse Rate 73 71 73 Respiratory 15 11 L 11 L Rate Blood Pressure 94/64 99/62 103/63 Blood Pressure [Left] O2 Sat by Pulse 97 100 99 Oximetry Constitutional: no acute distress, asleep Eyes: non-icteric ENT: oropharynx moist Neck: supple, no lymphadenopathy Ascultation: Bilateral: clear Cardiovascular: regular rate and rhythm Gastrointestinal: normoactive bowel sounds, soft, non-tender Integumentary: normal Neurologic: other (patient sleeping) Psychiatric: other (patient sleeping) CBC and BMP: 10/29/18 00:56 10/28/18 05:58 ABG, PT/INR, D-dimer: ABG POC ABG pH 7.436 (7.35-7.45) 10/23/18 20:51 POC ABG pCO2 34.3 (35-45) L 10/23/18 20:51 POC ABG pO2 95 (80-105) 10/23/18 20:51 POC ABG HCO3 23.1 (22-26 mml/L) 10/23/18 20:51 POC ABG Total CO2 24 (23-27mmol/L) 10/23/18 20:51 POC ABG O2 Sat 98 10/23/18 20:51 PT/INR, D-dimer PT 20.6 Sec. (12.2-14.9) H 10/17/18 10:19 INR 1.81 (0.87-1.13) H 10/17/18 10:19 Abnormal lab findings: Abnormal Labs 10/17/18 10/17/18 10/17/18 10:16 10:19 10:19 WBC RBC Hgb Hct MCV RDW Plt Count Lymph % (Auto) 9.5 L [place] % (Auto) Lymph # 1.0 L [place] # Seg Neutrophils % 84.7 H Seg Neuts % (Manual) Lymphocytes % (Manual) Monocytes % (Manual) Nucleated RBC % Seg Neutrophils # 8.7 H Seg Neutrophils # Man Lymphocytes # (Manual) PT 20.6 H INR 1.81 H POC ABG pH POC ABG pCO2 POC ABG pO2 Sodium Potassium Chloride Carbon Dioxide BUN Creatinine Glucose POC Glucose 277 H Calcium Phosphorus TIBC Ferritin AST ALT Alkaline Phosphatase Lactate Dehydrogenase Total Creatine Kinase Troponin T C-Reactive Protein Serum Total Protein Total Protein Albumin Xhloo-9-Wfitspoyi PEP Interpretation HDL Cholesterol Vitamin B12 Urine Creatinine Ur Creatinine 24 Hour Urine Total Protein Salicylates Acetaminophen 10/17/18 10/17/18 10/17/18 13:14 13:16 13:34 WBC RBC Hgb Hct MCV RDW Plt Count Lymph % (Auto) [place] % (Auto) Lymph # [place] # Seg Neutrophils % Seg Neuts % (Manual) Lymphocytes % (Manual) Monocytes % (Manual) Nucleated RBC % Seg Neutrophils # Seg Neutrophils # Man Lymphocytes # (Manual) PT INR POC ABG pH POC ABG pCO2 POC ABG pO2 Sodium Potassium Chloride Carbon Dioxide BUN Creatinine Glucose POC Glucose 330 H Calcium Phosphorus TIBC Ferritin AST ALT Alkaline Phosphatase Lactate Dehydrogenase Total Creatine Kinase Troponin T C-Reactive Protein Serum Total Protein Total Protein Albumin Rngwf-2-Uywzeebwj PEP Interpretation HDL Cholesterol Vitamin B12 Urine Creatinine 276.0 H 271.1 H Ur Creatinine 24 Hour Urine Total Protein 191 H Salicylates Acetaminophen 10/17/18 10/17/18 10/17/18 15:15 21:03 Unknown WBC RBC Hgb Hct MCV RDW Plt Count Lymph % (Auto) [place] % (Auto) Lymph # [place] # Seg Neutrophils % Seg Neuts % (Manual) Lymphocytes % (Manual) Monocytes % (Manual) Nucleated RBC % Seg Neutrophils # Seg Neutrophils # Man Lymphocytes # (Manual) PT INR POC ABG pH POC ABG pCO2 POC ABG pO2 Sodium Potassium 6.6 H* Chloride Carbon Dioxide 10 L BUN 111 H Creatinine 6.5 H Glucose 351 H POC Glucose 143 H Calcium Phosphorus TIBC Ferritin AST ALT Alkaline Phosphatase Lactate Dehydrogenase Total Creatine Kinase 3216 H Troponin T 4.720 H* C-Reactive Protein Serum Total Protein Total Protein Albumin Ndcpz-3-Vkoupfoar PEP Interpretation HDL Cholesterol 88 H Vitamin B12 Urine Creatinine Ur Creatinine 24 Hour Urine Total Protein Salicylates Acetaminophen 10/17/18 10/17/18 10/18/18 Unknown Unknown 07:29 WBC RBC Hgb Hct MCV RDW Plt Count Lymph % (Auto) [place] % (Auto) Lymph # [place] # Seg Neutrophils % Seg Neuts % (Manual) Lymphocytes % (Manual) Monocytes % (Manual) Nucleated RBC % Seg Neutrophils # Seg Neutrophils # Man Lymphocytes # (Manual) PT INR POC ABG pH POC ABG pCO2 POC ABG pO2 Sodium Potassium Chloride Carbon Dioxide BUN Creatinine Glucose POC Glucose 120 H Calcium Phosphorus TIBC Ferritin AST ALT Alkaline Phosphatase Lactate Dehydrogenase Total Creatine Kinase Troponin T C-Reactive Protein Serum Total Protein Total Protein Albumin Fcofn-5-Soetxbygk PEP Interpretation HDL Cholesterol Vitamin B12 Urine Creatinine Ur Creatinine 24 Hour Urine Total Protein Salicylates < 0.3 L Acetaminophen < 5.0 L 10/18/18 10/18/18 10/18/18 09:09 09:09 12:21 WBC RBC 3.28 L Hgb Hct MCV RDW Plt Count 125 L Lymph % (Auto) 13.2 L [place] % (Auto) Lymph # 1.1 L [place] # Seg Neutrophils % 80.7 H Seg Neuts % (Manual) Lymphocytes % (Manual) Monocytes % (Manual) Nucleated RBC % Seg Neutrophils # Seg Neutrophils # Man Lymphocytes # (Manual) PT INR POC ABG pH POC ABG pCO2 POC ABG pO2 Sodium Potassium Chloride 97.9 L Carbon Dioxide 20 L D BUN 38 H Creatinine 3.2 H D Glucose 207 H POC Glucose 180 H Calcium Phosphorus TIBC Ferritin AST ALT Alkaline Phosphatase Lactate Dehydrogenase Total Creatine Kinase Troponin T C-Reactive Protein Serum Total Protein Total Protein Albumin Oxjpw-0-Evuxawquj PEP Interpretation HDL Cholesterol Vitamin B12 Urine Creatinine Ur Creatinine 24 Hour Urine Total Protein Salicylates Acetaminophen 10/18/18 10/18/18 10/19/18 17:14 20:50 05:20 WBC RBC 3.46 L Hgb Hct MCV 98 H RDW 16.4 H Plt Count 55 L Lymph % (Auto) [place] % (Auto) Lymph # [place] # Seg Neutrophils % Seg Neuts % (Manual) Lymphocytes % (Manual) Monocytes % (Manual) 9.0 H Nucleated RBC % 4.0 H Seg Neutrophils # Seg Neutrophils # Man Lymphocytes # (Manual) PT INR POC ABG pH POC ABG pCO2 POC ABG pO2 Sodium Potassium Chloride Carbon Dioxide BUN Creatinine Glucose POC Glucose 256 H 335 H Calcium Phosphorus TIBC Ferritin AST ALT Alkaline Phosphatase Lactate Dehydrogenase Total Creatine Kinase Troponin T C-Reactive Protein Serum Total Protein Total Protein Albumin Mmkgz-8-Vvtgbatwa PEP Interpretation HDL Cholesterol Vitamin B12 Urine Creatinine Ur Creatinine 24 Hour Urine Total Protein Salicylates Acetaminophen 10/19/18 10/19/18 10/19/18 05:20 08:34 08:34 WBC RBC Hgb Hct MCV RDW Plt Count Lymph % (Auto) [place] % (Auto) Lymph # [place] # Seg Neutrophils % Seg Neuts % (Manual) Lymphocytes % (Manual) Monocytes % (Manual) Nucleated RBC % Seg Neutrophils # Seg Neutrophils # Man Lymphocytes # (Manual) PT INR POC ABG pH POC ABG pCO2 POC ABG pO2 Sodium Potassium Chloride Carbon Dioxide 21 L BUN 52 H Creatinine 4.2 H Glucose 106 H POC Glucose Calcium Phosphorus TIBC 193 L Ferritin 2450.0 H AST ALT Alkaline Phosphatase Lactate Dehydrogenase 892 H Total Creatine Kinase Troponin T C-Reactive Protein Serum Total Protein Total Protein Albumin Hrvoi-5-Usgnxxhty PEP Interpretation HDL Cholesterol Vitamin B12 Urine Creatinine Ur Creatinine 24 Hour Urine Total Protein Salicylates Acetaminophen 10/19/18 10/19/18 10/19/18 08:34 09:06 13:41 WBC RBC Hgb Hct MCV RDW Plt Count Lymph % (Auto) [place] % (Auto) Lymph # [place] # Seg Neutrophils % Seg Neuts % (Manual) Lymphocytes % (Manual) Monocytes % (Manual) Nucleated RBC % Seg Neutrophils # Seg Neutrophils # Man Lymphocytes # (Manual) PT INR POC ABG pH POC ABG pCO2 POC ABG pO2 Sodium Potassium Chloride Carbon Dioxide BUN Creatinine Glucose POC Glucose 141 H 156 H Calcium Phosphorus TIBC Ferritin AST ALT Alkaline Phosphatase Lactate Dehydrogenase Total Creatine Kinase Troponin T C-Reactive Protein Serum Total Protein Total Protein Albumin Jaxps-9-Fcdxlcqrh PEP Interpretation HDL Cholesterol Vitamin B12 1296 H Urine Creatinine Ur Creatinine 24 Hour Urine Total Protein Salicylates Acetaminophen 10/19/18 10/19/18 10/20/18 15:53 22:51 05:07 WBC RBC 3.23 L Hgb 10.0 L Hct MCV RDW 15.7 H Plt Count 111 L D Lymph % (Auto) [place] % (Auto) 8.0 H Lymph # [place] # Seg Neutrophils % Seg Neuts % (Manual) Lymphocytes % (Manual) Monocytes % (Manual) Nucleated RBC % Seg Neutrophils # Seg Neutrophils # Man Lymphocytes # (Manual) PT INR POC ABG pH POC ABG pCO2 POC ABG pO2 Sodium Potassium Chloride Carbon Dioxide BUN Creatinine Glucose POC Glucose 193 H 228 H Calcium Phosphorus TIBC Ferritin AST ALT Alkaline Phosphatase Lactate Dehydrogenase Total Creatine Kinase Troponin T C-Reactive Protein Serum Total Protein Total Protein Albumin Bwkzs-3-Poyizpfhx PEP Interpretation HDL Cholesterol Vitamin B12 Urine Creatinine Ur Creatinine 24 Hour Urine Total Protein Salicylates Acetaminophen 10/20/18 10/20/18 10/20/18 05:07 05:07 10:44 WBC RBC Hgb Hct MCV RDW Plt Count Lymph % (Auto) [place] % (Auto) Lymph # [place] # Seg Neutrophils % Seg Neuts % (Manual) Lymphocytes % (Manual) Monocytes % (Manual) Nucleated RBC % Seg Neutrophils # Seg Neutrophils # Man Lymphocytes # (Manual) PT INR POC ABG pH POC ABG pCO2 POC ABG pO2 Sodium Potassium Chloride Carbon Dioxide BUN 32 H Creatinine 3.2 H Glucose 177 H POC Glucose 160 H Calcium 8.0 L Phosphorus TIBC Ferritin AST 305 H ALT 728 H Alkaline Phosphatase 402 H Lactate Dehydrogenase Total Creatine Kinase Troponin T C-Reactive Protein Serum Total Protein 5.5 L Total Protein 6.0 L Albumin 2.9 L 2.7 L Leini-4-Cppcbvunk 0.4 H PEP Interpretation see below H HDL Cholesterol Vitamin B12 Urine Creatinine Ur Creatinine 24 Hour Urine Total Protein Salicylates Acetaminophen 10/20/18 10/20/18 10/20/18 13:45 17:19 20:44 WBC RBC Hgb Hct MCV RDW Plt Count Lymph % (Auto) [place] % (Auto) Lymph # [place] # Seg Neutrophils % Seg Neuts % (Manual) Lymphocytes % (Manual) Monocytes % (Manual) Nucleated RBC % Seg Neutrophils # Seg Neutrophils # Man Lymphocytes # (Manual) PT INR POC ABG pH POC ABG pCO2 POC ABG pO2 Sodium Potassium Chloride Carbon Dioxide BUN Creatinine Glucose POC Glucose 143 H 234 H Calcium Phosphorus TIBC Ferritin AST ALT Alkaline Phosphatase Lactate Dehydrogenase Total Creatine Kinase Troponin T C-Reactive Protein Serum Total Protein Total Protein Albumin Bxniw-5-Zjmnirkgr PEP Interpretation HDL Cholesterol Vitamin B12 Urine Creatinine 157.6 H Ur Creatinine 24 Hour Urine Total Protein Salicylates Acetaminophen 10/21/18 10/21/18 10/21/18 05:57 05:57 07:55 WBC RBC 3.16 L Hgb 10.0 L Hct 29.9 L MCV RDW 15.4 H Plt Count 125 L Lymph % (Auto) [place] % (Auto) 9.6 H Lymph # [place] # Seg Neutrophils % 71.3 H Seg Neuts % (Manual) Lymphocytes % (Manual) Monocytes % (Manual) Nucleated RBC % Seg Neutrophils # Seg Neutrophils # Man Lymphocytes # (Manual) PT INR POC ABG pH POC ABG pCO2 POC ABG pO2 Sodium Potassium Chloride Carbon Dioxide BUN 47 H Creatinine 4.9 H D Glucose 229 H POC Glucose 239 H Calcium 8.0 L Phosphorus TIBC Ferritin AST ALT Alkaline Phosphatase Lactate Dehydrogenase Total Creatine Kinase Troponin T C-Reactive Protein Serum Total Protein Total Protein Albumin Udgbu-8-Rwhnjyfid PEP Interpretation HDL Cholesterol Vitamin B12 Urine Creatinine Ur Creatinine 24 Hour Urine Total Protein Salicylates Acetaminophen 10/21/18 10/21/18 10/21/18 12:05 15:40 18:19 WBC RBC Hgb Hct MCV RDW Plt Count Lymph % (Auto) [place] % (Auto) Lymph # [place] # Seg Neutrophils % Seg Neuts % (Manual) Lymphocytes % (Manual) Monocytes % (Manual) Nucleated RBC % Seg Neutrophils # Seg Neutrophils # Man Lymphocytes # (Manual) PT INR POC ABG pH POC ABG pCO2 POC ABG pO2 Sodium Potassium Chloride Carbon Dioxide BUN Creatinine Glucose POC Glucose 446 H 263 H Calcium Phosphorus TIBC Ferritin AST ALT Alkaline Phosphatase Lactate Dehydrogenase Total Creatine Kinase Troponin T C-Reactive Protein Serum Total Protein Total Protein Albumin Wehhf-1-Qpqkycxlq PEP Interpretation HDL Cholesterol Vitamin B12 Urine Creatinine 196.7 H Ur Creatinine 24 Hour 0.1 L Urine Total Protein Salicylates Acetaminophen 10/22/18 10/22/18 10/22/18 00:45 06:24 06:24 WBC RBC 3.17 L Hgb 9.9 L Hct MCV RDW 15.7 H Plt Count 134 L Lymph % (Auto) [place] % (Auto) Lymph # [place] # Seg Neutrophils % Seg Neuts % (Manual) 78.0 H Lymphocytes % (Manual) Monocytes % (Manual) Nucleated RBC % Seg Neutrophils # Seg Neutrophils # Man 8.3 H Lymphocytes # (Manual) PT INR POC ABG pH POC ABG pCO2 POC ABG pO2 Sodium Potassium Chloride Carbon Dioxide BUN 33 H Creatinine 3.9 H Glucose 171 H POC Glucose 179 H Calcium Phosphorus TIBC Ferritin AST ALT Alkaline Phosphatase Lactate Dehydrogenase Total Creatine Kinase Troponin T C-Reactive Protein Serum Total Protein Total Protein Albumin Tnmiw-9-Bpbaoopee PEP Interpretation HDL Cholesterol Vitamin B12 Urine Creatinine Ur Creatinine 24 Hour Urine Total Protein Salicylates Acetaminophen 10/22/18 10/22/18 10/22/18 12:47 18:33 21:58 WBC RBC Hgb Hct MCV RDW Plt Count Lymph % (Auto) [place] % (Auto) Lymph # [place] # Seg Neutrophils % Seg Neuts % (Manual) Lymphocytes % (Manual) Monocytes % (Manual) Nucleated RBC % Seg Neutrophils # Seg Neutrophils # Man Lymphocytes # (Manual) PT INR POC ABG pH POC ABG pCO2 POC ABG pO2 Sodium Potassium Chloride Carbon Dioxide BUN Creatinine Glucose POC Glucose 210 H 176 H 230 H Calcium Phosphorus TIBC Ferritin AST ALT Alkaline Phosphatase Lactate Dehydrogenase Total Creatine Kinase Troponin T C-Reactive Protein Serum Total Protein Total Protein Albumin Xttil-2-Xxgceyqsc PEP Interpretation HDL Cholesterol Vitamin B12 Urine Creatinine Ur Creatinine 24 Hour Urine Total Protein Salicylates Acetaminophen 10/23/18 10/23/18 10/23/18 05:24 05:24 07:31 WBC RBC 3.49 L Hgb Hct MCV RDW 16.7 H Plt Count Lymph % (Auto) [place] % (Auto) Lymph # [place] # Seg Neutrophils % Seg Neuts % (Manual) 88.0 H Lymphocytes % (Manual) 6.0 L Monocytes % (Manual) Nucleated RBC % Seg Neutrophils # Seg Neutrophils # Man 9.3 H Lymphocytes # (Manual) 0.6 L PT INR POC ABG pH POC ABG pCO2 POC ABG pO2 Sodium Potassium Chloride Carbon Dioxide BUN 49 H Creatinine 5.0 H Glucose 211 H POC Glucose 137 H Calcium Phosphorus 5.30 H D TIBC Ferritin AST ALT Alkaline Phosphatase Lactate Dehydrogenase Total Creatine Kinase Troponin T C-Reactive Protein Serum Total Protein Total Protein Albumin Ccxhb-7-Dzkbvrkll PEP Interpretation HDL Cholesterol Vitamin B12 Urine Creatinine Ur Creatinine 24 Hour Urine Total Protein Salicylates Acetaminophen 10/23/18 10/23/18 10/23/18 11:50 11:51 14:59 WBC RBC Hgb Hct MCV RDW Plt Count Lymph % (Auto) [place] % (Auto) Lymph # [place] # Seg Neutrophils % Seg Neuts % (Manual) Lymphocytes % (Manual) Monocytes % (Manual) Nucleated RBC % Seg Neutrophils # Seg Neutrophils # Man Lymphocytes # (Manual) PT INR POC ABG pH 7.346 L POC ABG pCO2 POC ABG pO2 116 H Sodium Potassium Chloride Carbon Dioxide BUN Creatinine Glucose POC Glucose 232 H Calcium Phosphorus TIBC Ferritin AST ALT Alkaline Phosphatase Lactate Dehydrogenase Total Creatine Kinase Troponin T C-Reactive Protein 24.10 H Serum Total Protein Total Protein Albumin Leauj-4-Gevgmigms PEP Interpretation HDL Cholesterol Vitamin B12 Urine Creatinine Ur Creatinine 24 Hour Urine Total Protein Salicylates Acetaminophen 10/23/18 10/23/18 10/23/18 18:29 20:51 23:37 WBC RBC Hgb Hct MCV RDW Plt Count Lymph % (Auto) [place] % (Auto) Lymph # [place] # Seg Neutrophils % Seg Neuts % (Manual) Lymphocytes % (Manual) Monocytes % (Manual) Nucleated RBC % Seg Neutrophils # Seg Neutrophils # Man Lymphocytes # (Manual) PT INR POC ABG pH POC ABG pCO2 34.3 L POC ABG pO2 Sodium Potassium Chloride Carbon Dioxide BUN Creatinine Glucose POC Glucose 182 H 232 H Calcium Phosphorus TIBC Ferritin AST ALT Alkaline Phosphatase Lactate Dehydrogenase Total Creatine Kinase Troponin T C-Reactive Protein Serum Total Protein Total Protein Albumin Ngdqt-1-Fblpfrajy PEP Interpretation HDL Cholesterol Vitamin B12 Urine Creatinine Ur Creatinine 24 Hour Urine Total Protein Salicylates Acetaminophen 10/24/18 10/24/18 10/24/18 04:50 04:50 07:44 WBC RBC 3.13 L Hgb 9.7 L Hct MCV RDW 16.8 H Plt Count 132 L Lymph % (Auto) [place] % (Auto) Lymph # [place] # Seg Neutrophils % Seg Neuts % (Manual) 79.0 H Lymphocytes % (Manual) 11.0 L Monocytes % (Manual) Nucleated RBC % Seg Neutrophils # Seg Neutrophils # Man 8.7 H Lymphocytes # (Manual) PT INR POC ABG pH POC ABG pCO2 POC ABG pO2 Sodium 136 L Potassium Chloride 94.6 L Carbon Dioxide BUN 25 H Creatinine 3.3 H Glucose 214 H POC Glucose 219 H Calcium Phosphorus TIBC Ferritin AST ALT Alkaline Phosphatase Lactate Dehydrogenase Total Creatine Kinase Troponin T C-Reactive Protein Serum Total Protein Total Protein Albumin Dgfoa-4-Lgeheyvoa PEP Interpretation HDL Cholesterol Vitamin B12 Urine Creatinine Ur Creatinine 24 Hour Urine Total Protein Salicylates Acetaminophen 10/24/18 10/24/18 10/24/18 11:52 18:25 21:12 WBC RBC Hgb Hct MCV RDW Plt Count Lymph % (Auto) [place] % (Auto) Lymph # [place] # Seg Neutrophils % Seg Neuts % (Manual) Lymphocytes % (Manual) Monocytes % (Manual) Nucleated RBC % Seg Neutrophils # Seg Neutrophils # Man Lymphocytes # (Manual) PT INR POC ABG pH POC ABG pCO2 POC ABG pO2 Sodium Potassium Chloride Carbon Dioxide BUN Creatinine Glucose POC Glucose 290 H 113 H 123 H Calcium Phosphorus TIBC Ferritin AST ALT Alkaline Phosphatase Lactate Dehydrogenase Total Creatine Kinase Troponin T C-Reactive Protein Serum Total Protein Total Protein Albumin Iwujw-5-Kltrdovbu PEP Interpretation HDL Cholesterol Vitamin B12 Urine Creatinine Ur Creatinine 24 Hour Urine Total Protein Salicylates Acetaminophen 10/25/18 10/25/18 10/25/18 06:29 11:31 12:28 WBC RBC Hgb Hct MCV RDW Plt Count Lymph % (Auto) [place] % (Auto) Lymph # [place] # Seg Neutrophils % Seg Neuts % (Manual) Lymphocytes % (Manual) Monocytes % (Manual) Nucleated RBC % Seg Neutrophils # Seg Neutrophils # Man Lymphocytes # (Manual) PT INR POC ABG pH POC ABG pCO2 POC ABG pO2 Sodium Potassium Chloride 94.1 L Carbon Dioxide BUN 42 H Creatinine 4.8 H Glucose 192 H POC Glucose 208 H 225 H Calcium Phosphorus TIBC Ferritin AST ALT Alkaline Phosphatase Lactate Dehydrogenase Total Creatine Kinase Troponin T C-Reactive Protein Serum Total Protein Total Protein Albumin Vgvau-4-Jdoyeeegi PEP Interpretation HDL Cholesterol Vitamin B12 Urine Creatinine Ur Creatinine 24 Hour Urine Total Protein Salicylates Acetaminophen 10/25/18 10/25/18 10/26/18 16:16 23:38 05:49 WBC RBC Hgb Hct MCV RDW Plt Count Lymph % (Auto) [place] % (Auto) Lymph # [place] # Seg Neutrophils % Seg Neuts % (Manual) Lymphocytes % (Manual) Monocytes % (Manual) Nucleated RBC % Seg Neutrophils # Seg Neutrophils # Man Lymphocytes # (Manual) PT INR POC ABG pH POC ABG pCO2 POC ABG pO2 Sodium Potassium Chloride Carbon Dioxide BUN Creatinine Glucose POC Glucose 228 H 312 H 246 H Calcium Phosphorus TIBC Ferritin AST ALT Alkaline Phosphatase Lactate Dehydrogenase Total Creatine Kinase Troponin T C-Reactive Protein Serum Total Protein Total Protein Albumin Hijjr-0-Gxlmykodo PEP Interpretation HDL Cholesterol Vitamin B12 Urine Creatinine Ur Creatinine 24 Hour Urine Total Protein Salicylates Acetaminophen 10/26/18 10/26/18 10/26/18 06:13 06:13 09:17 WBC 12.3 H RBC 3.35 L Hgb Hct MCV RDW 16.4 H Plt Count Lymph % (Auto) 8.4 L [place] % (Auto) 10.7 H Lymph # 1.0 L [place] # 1.3 H Seg Neutrophils % 80.4 H Seg Neuts % (Manual) Lymphocytes % (Manual) Monocytes % (Manual) Nucleated RBC % Seg Neutrophils # 9.9 H Seg Neutrophils # Man Lymphocytes # (Manual) PT INR POC ABG pH POC ABG pCO2 POC ABG pO2 Sodium 136 L Potassium Chloride 91.7 L Carbon Dioxide BUN 54 H Creatinine 6.0 H Glucose 247 H POC Glucose 252 H Calcium Phosphorus TIBC Ferritin AST ALT Alkaline Phosphatase 251 H Lactate Dehydrogenase 458 H Total Creatine Kinase Troponin T C-Reactive Protein Serum Total Protein Total Protein 5.9 L Albumin 3.0 L Barwd-4-Kqpemkwbg PEP Interpretation HDL Cholesterol Vitamin B12 Urine Creatinine Ur Creatinine 24 Hour Urine Total Protein Salicylates Acetaminophen 10/26/18 10/27/18 10/27/18 15:31 00:37 06:20 WBC RBC Hgb Hct MCV RDW Plt Count Lymph % (Auto) [place] % (Auto) Lymph # [place] # Seg Neutrophils % Seg Neuts % (Manual) Lymphocytes % (Manual) Monocytes % (Manual) Nucleated RBC % Seg Neutrophils # Seg Neutrophils # Man Lymphocytes # (Manual) PT INR POC ABG pH POC ABG pCO2 POC ABG pO2 Sodium Potassium Chloride Carbon Dioxide BUN Creatinine Glucose POC Glucose 265 H 308 H 368 H Calcium Phosphorus TIBC Ferritin AST ALT Alkaline Phosphatase Lactate Dehydrogenase Total Creatine Kinase Troponin T C-Reactive Protein Serum Total Protein Total Protein Albumin [id number] PEP Interpretation HDL Cholesterol Vitamin B12 Urine Creatinine Ur Creatinine 24 Hour Urine Total Protein Salicylates Acetaminophen 10/27/18 10/27/18 10/27/18 11:19 16:40 22:48 WBC RBC Hgb Hct MCV RDW Plt Count Lymph % (Auto) [place] % (Auto) Lymph # [place] # Seg Neutrophils % Seg Neuts % (Manual) Lymphocytes % (Manual) Monocytes % (Manual) Nucleated RBC % Seg Neutrophils # Seg Neutrophils # Man Lymphocytes # (Manual) PT INR POC ABG pH POC ABG pCO2 POC ABG pO2 Sodium Potassium Chloride Carbon Dioxide BUN Creatinine Glucose POC Glucose 331 H 348 H 345 H Calcium Phosphorus TIBC Ferritin AST ALT Alkaline Phosphatase Lactate Dehydrogenase Total Creatine Kinase Troponin T C-Reactive Protein Serum Total Protein Total Protein Albumin [id number] PEP Interpretation HDL Cholesterol Vitamin B12 Urine Creatinine Ur Creatinine 24 Hour Urine Total Protein Salicylates Acetaminophen 10/28/18 10/28/18 10/28/18 05:52 05:58 05:58 WBC 12.5 H RBC 2.82 L Hgb 8.7 L Hct 26.7 L MCV RDW 16.2 H Plt Count Lymph % (Auto) [place] % (Auto) Lymph # [place] # Seg Neutrophils % Seg Neuts % (Manual) Lymphocytes % (Manual) Monocytes % (Manual) Nucleated RBC % Seg Neutrophils # Seg Neutrophils # Man Lymphocytes # (Manual) PT INR POC ABG pH POC ABG pCO2 POC ABG pO2 Sodium Potassium Chloride 93.7 L Carbon Dioxide BUN 55 H Creatinine 5.3 H Glucose 286 H POC Glucose 280 H Calcium 8.3 L Phosphorus TIBC Ferritin AST ALT Alkaline Phosphatase Lactate Dehydrogenase Total Creatine Kinase Troponin T C-Reactive Protein Serum Total Protein Total Protein Albumin [id number] PEP Interpretation HDL Cholesterol Vitamin B12 Urine Creatinine Ur Creatinine 24 Hour Urine Total Protein Salicylates Acetaminophen 10/28/18 10/29/18 18:09 00:56 WBC 12.5 H RBC 2.82 L Hgb 8.6 L Hct 26.5 L MCV RDW 16.2 H Plt Count Lymph % (Auto) 7.1 L [place] % (Auto) 9.7 H Lymph # 0.9 L [place] # 1.2 H Seg Neutrophils % 81.8 H Seg Neuts % (Manual) Lymphocytes % (Manual) Monocytes % (Manual) Nucleated RBC % Seg Neutrophils # 10.2 H Seg Neutrophils # Man Lymphocytes # (Manual) PT INR POC ABG pH POC ABG pCO2 POC ABG pO2 Sodium Potassium Chloride Carbon Dioxide BUN Creatinine Glucose POC Glucose 289 H Calcium Phosphorus TIBC Ferritin AST ALT Alkaline Phosphatase Lactate Dehydrogenase Total Creatine Kinase Troponin T C-Reactive Protein Serum Total Protein Total Protein Albumin Qnyaz-[id number] PEP Interpretation HDL Cholesterol Vitamin B12 Urine Creatinine Ur Creatinine 24 Hour Urine Total Protein Salicylates Acetaminophen Allied health notes reviewed: nursing
--- NOTE | 2018-10-29 10:41 | Progress Note ---
Assessment and Plan Severe renal failure on HD acutesystolic congestive heart failure EF 10% AG metabolic acidosis Hyperkalemia Metabolic encephalopathy CVA - holding HD due to hypotension, discussed with ICU team, PICC line to be placed for pressor and inotrope initiation, will order STAT BMP, for now holding H - Renally dose medications - Strict I&O monitoring - Obtain daily weights - Assess dialysis needs daily Benji grover MD [phone] Subjective Date of service: 10/29/18 Principal diagnosis: h/o low plt, unresponsive Interval history: transferred to the ICU due to low BP, no family at bedside Objective - Vital Signs Vital signs: Vital Signs - 12hr 10/28/18 10/28/18 10/28/18 22:41 22:51 23:00 Temperature Pulse Rate 75 75 73 Respiratory 17 15 23 Rate Blood Pressure 96/61 102/62 101/62 Blood Pressure [Left] O2 Sat by Pulse 92 96 96 Oximetry 10/28/18 10/28/18 10/28/18 23:05 23:11 23:21 Temperature Pulse Rate 76 75 76 Respiratory 14 18 11 L Rate Blood Pressure 101/62 101/62 100/61 Blood Pressure [Left] O2 Sat by Pulse 100 99 98 Oximetry 10/28/18 10/28/18 10/28/18 23:30 23:41 23:46 Temperature 99.1 F Pulse Rate 74 77 Respiratory 7 L 17 Rate Blood Pressure 98/61 98/61 Blood Pressure [Left] O2 Sat by Pulse 99 98 Oximetry 10/28/18 10/29/18 10/29/18 23:51 00:00 00:11 Temperature 98.2 F Pulse Rate 76 77 78 Respiratory 11 L 17 16 Rate Blood Pressure 100/65 102/58 102/58 Blood Pressure 98/58 [Left] O2 Sat by Pulse 100 100 99 Oximetry 10/29/18 10/29/18 10/29/18 00:21 00:30 00:41 Temperature Pulse Rate 75 76 75 Respiratory 14 17 11 L Rate Blood Pressure 101/60 98/60 98/60 Blood Pressure [Left] O2 Sat by Pulse 100 96 98 Oximetry 10/29/18 10/29/18 10/29/18 00:51 01:00 01:11 Temperature Pulse Rate 75 77 75 Respiratory 19 15 13 Rate Blood Pressure 100/64 107/59 107/59 Blood Pressure [Left] O2 Sat by Pulse 91 97 97 Oximetry 10/29/18 10/29/18 10/29/18 01:21 01:30 01:41 Temperature Pulse Rate 77 77 74 Respiratory 14 13 11 L Rate Blood Pressure 100/62 101/63 101/63 Blood Pressure [Left] O2 Sat by Pulse 98 98 97 Oximetry 10/29/18 10/29/18 10/29/18 01:51 02:00 02:11 Temperature Pulse Rate 76 76 79 Respiratory 12 14 15 Rate Blood Pressure 108/63 98/58 98/58 Blood Pressure [Left] O2 Sat by Pulse 97 100 99 Oximetry 10/29/18 10/29/18 10/29/18 02:21 02:30 02:41 Temperature Pulse Rate 77 76 77 Respiratory 21 16 15 Rate Blood Pressure 105/62 99/62 99/62 Blood Pressure [Left] O2 Sat by Pulse 99 99 98 Oximetry 10/29/18 10/29/18 10/29/18 02:51 03:00 03:11 Temperature Pulse Rate 78 75 76 Respiratory 13 14 14 Rate Blood Pressure 110/63 106/66 106/66 Blood Pressure [Left] O2 Sat by Pulse 95 99 93 Oximetry 10/29/18 10/29/18 10/29/18 03:21 03:30 03:41 Temperature Pulse Rate 76 75 76 Respiratory 13 10 L 13 Rate Blood Pressure 106/63 109/65 109/65 Blood Pressure [Left] O2 Sat by Pulse 100 99 Oximetry 10/29/18 10/29/18 10/29/18 03:51 04:00 04:11 Temperature 99.1 F Pulse Rate 75 73 73 Respiratory 13 9 L 25 H Rate Blood Pressure 104/65 104/64 104/64 Blood Pressure 98/62 [Left] O2 Sat by Pulse 95 94 95 Oximetry 10/29/18 10/29/18 10/29/18 04:21 04:30 04:41 Temperature Pulse Rate 73 74 78 Respiratory 24 8 L 15 Rate Blood Pressure 91/54 103/64 103/64 Blood Pressure [Left] O2 Sat by Pulse 100 98 98 Oximetry 10/29/18 10/29/18 10/29/18 04:51 05:00 05:11 Temperature Pulse Rate 73 73 75 Respiratory 13 16 12 Rate Blood Pressure 105/65 87/58 87/58 Blood Pressure [Left] O2 Sat by Pulse 98 97 98 Oximetry 10/29/18 10/29/18 10/29/18 05:21 05:30 05:41 Temperature Pulse Rate 74 72 72 Respiratory 13 12 12 Rate Blood Pressure 91/64 94/64 94/64 Blood Pressure [Left] O2 Sat by Pulse 99 97 97 Oximetry 10/29/18 10/29/18 10/29/18 06:00 06:30 07:00 Temperature Pulse Rate 74 73 73 Respiratory 12 13 15 Rate Blood Pressure 94/64 102/63 94/64 Blood Pressure [Left] O2 Sat by Pulse 100 94 97 Oximetry 10/29/18 10/29/18 07:30 08:00 Temperature 97.9 F Pulse Rate 71 73 Respiratory 11 L 11 L Rate Blood Pressure 99/62 103/63 Blood Pressure [Left] O2 Sat by Pulse 100 99 Oximetry - General Appearance General appearance: cachectic EENT: ATNC, mucous membranes dry Neck: no JVD, no carotid bruit Respiratory: Present: Clear to Ascultation Cardiology: regular, S1S2 Gastrointestinal: normoactive bowel sounds, no tenderness, no distended Integumentary: no rash, warm and dry Neurologic: other (does not follow commands) Musculoskeletal: other (no edema in BLE) Psychiatric: other (does not answer questions ) - Lab 10/29/18 00:56 10/28/18 05:58 Most recent lab results Calcium 8.3 mg/dL (8.4-10.2) L 10/28/18 05:58 Phosphorus 5.30 mg/dL (2.5-4.5) H D 10/23/18 05:24 Magnesium 1.90 mg/dL (1.7-2.3) 10/28/18 05:58 196.7 mg/dL (0.1-20.0) H 10/21/18 18:19 12 mmol/L 10/17/18 13:34 191 mg/dL (5-11.8) H 10/17/18 13:16 Medications & Allergies - Medications Allergies/Adverse Reactions: Allergies NSAIDS (Non-Steroidal Anti-Inflamma Adverse Reaction (Verified 01/02/17 05:56) Unknown Tetracyclines Adverse Reaction (Verified 09/26/14 12:09) Unknown Home Medications: Home Medications Medication Instructions Recorded Confirmed Last Taken Type Ergocalciferol [Vitamin D2] 50,000 unit PO QWEEK capsule 09/25/16 10/17/18 Unknown Rx Latanoprost 0.005% 1 drop OP QPM 01/02/17 10/17/18 Unknown History Sodium Bicarbonate 325 mg PO DAILY 01/02/17 10/17/18 Unknown History Clopidogrel [Plavix] 75 mg PO DAILY #30 tablet 01/08/17 10/17/18 Unknown Rx Docusate Sodium [Colace CAP] 100 mg PO BID #60 capsule 01/08/17 10/17/18 Unknown Rx Famotidine [Pepcid] 10 mg PO BID #60 tablet 01/08/17 10/17/18 Unknown Rx Gabapentin [Neurontin] 300 mg PO QHS #30 capsule 01/08/17 10/17/18 Unknown Rx Simvastatin [Zocor TAB] 20 mg PO QHS #60 tablet 01/08/17 10/17/18 Unknown Rx glipiZIDE [Glucotrol] 5 mg PO QDDIAB #60 tablet 01/08/17 10/17/18 Unknown Rx hydrALAZINE [Apresoline TAB] 10 mg PO Q8HR #90 tablet 01/08/17 10/17/18 Unknown Rx levETIRAcetam [Keppra TAB] 500 mg PO BID #60 tablet 01/08/17 10/17/18 Unknown Rx Active Medications: Generic Name Dose Route Start Last Admin Trade Name Freq PRN Reason Stop Dose Admin Lipase/Protease/Amylase 1 each 10/25/18 09:18 10/28/18 09:[address] 10,500 Unit FEEDTUBE 1 each PRN PRN Administration For Clogged Feeding Tube Clopidogrel Bisulfate 75 mg 10/21/18 11:00 10/28/18 09:08 Plavix PO 75 mg QDAY [place] Administration Ergocalciferol 50,000 unit 10/24/18 10:00 10/24/18 10:42 Vitamin D2 PO 50,000 unit Sa ALLEY Administration Famotidine 20 mg 10/21/18 10:00 10/28/18 09:08 Pepcid PO 20 mg DAILY AL[place] Administration Gabapentin 300 mg 10/17/18 22:00 10/28/18 21:41 Neurontin PO 300 mg QHS ALLEY Administration Heparin Sodium (Porcine) 5,000 unit 10/29/18 10:00 Heparin SUB-Q Q12HR [place] Sodium Chloride 100 mls @ 999 mls/hr 10/25/18 14:52 Nacl 0.9% IV LESLIE PRN Hypotension Norepinephrine 8 mg/ Sodium 250 mls @ 3.75 mls/hr 10/28/18 18:00 Chloride IV TITR [facility] Protocol 2 MCG/MIN Dobutamine HCl/Dextrose 500 mg in 250 mls @ 3.366 mls/hr 10/29/18 11:00 Dobutrex Drip 500mg/D5w 250ml IV TITR [facility] Protocol 2 MCG/KG/MIN Phenylephrine HCl 100 mg/ 100 mls @ 6 mls/hr 10/29/18 10:30 Sodium Chloride IV TITR [facility] Protocol 100 MCG/MIN Insulin Human Lispro 0 unit 10/24/18 12:00 10/29/18 07:32 Humalog SUB-Q Not Given Q6HR [facility] Protocol Latanoprost 1 drops 10/17/18 18:00 10/28/18 18:00 Latanoprost 0.005% OU Not Given QPM [facility] Levetiracetam 500 mg 10/21/18 10:00 10/28/18 21:41 Keppra PO 500 mg BID [place] Administration Simple Syrup 15 ml 10/25/18 09:18 Simple Syrup FEEDTUBE PRN PRN Hypoglycemia Simple Syrup 30 ml 10/25/18 09:18 Simple Syrup FEEDTUBE PRN PRN Hypoglycemia Sodium Bicarbonate 325 mg 10/17/18 17:00 10/28/18 09:38 Sodium Bicarbonate PO 325 mg DAILY [place] Administration Sodium Bicarbonate 325 mg 10/25/18 09:18 Sodium Bicarbonate FEEDTUBE PRN PRN For Clogged Feeding Tube
[2018-10-29] MEDS: PLAVIX PO SCH (11:31)
[2018-10-29] MEDS: SODIUM BICARBONATE PO SCH (11:31)
[2018-10-29] MEDS: HEPARIN SUB-Q SCH ×2 (11:32→21:34)
[2018-10-29] MEDS: PEPCID PO SCH (11:32)
[2018-10-29] MEDS: KEPPRA PO SCH ×2 (11:32→21:30)
--- NOTE | 2018-10-29 11:40 | Progress Note ---
Assessment and Plan Cultures: 10/17/2018 urine culture: No growth 10/23/2018 and blood culture: No growth 10/26/2018 blood culture: no growth A/P: 63-year-old female who was admitted to the hospital on 10/17/2018 with altered mental status. She has a history of hypertension, diabetes mellitus type 2, CVA, dementia, CAD status post CABG, CKD stage IV. Upon evaluation in the ER, she was found to have worsening renal function requiring urgent hemodialysis: 1) Isolated fevers: Improved, 2 episodes so far throughout the hospitalization. Blood cultures have remained negative. No evidence of pneumonia. Chest x-ray shows bilateral pleural effusions. She does not appear to have any respiratory distress. Wounds are quite superficial and do not appear to be infected. A central fever is quite possible. Given hypotension, persistent low grade fevers with leucocytosis, will start empiric IV Cefepime and Vancomycin and monitor response. 2) Bilateral CVA: ?cardioembolic stroke. Low EF, [place] negative for thrombus or vegetation. 3) ARF / ESRD: on hemodialysis. Recs: given hypotension, persistent low grade fevers with leucocytosis, will start empiric IV Cefepime and Vancomycin and monitor response ?central fever is certainly possible Overall poor prognosis Bernice Torres MD, FACP [facility] C: [phone] O: [phone] F: [phone] Subjective Date of service: 10/29/18 Principal diagnosis: h/o low plt, unresponsive Interval history: low grade fevers. patient got moved to ICU due to hypotension post dialysis. remains non verbal. No respiratory distress. Objective - Exam Narrative Exam: Physical Exam: Constitutional: no distress, non verbal Head, Ears, Nose: Normocephalic, atraumatic. External ears, nose normal Eyes: Conjunctivae/corneas clear. No icterus. No ptosis. Neck: Supple, no meningeal signs Oral: Unable to examine Cardiovascular: S1, S2 normal. Respiratory: Good air entry, clear to auscultation bilaterally GI: Soft, non-tender; bowel sounds normal. No peritoneal signs Musculoskeletal: No pedal edema, no cyanosis. Skin: No rash or abscess. Multiple hyperpigmented spots, ?early calciphylaxis. Superficial wounds on legs, do not appear infected Hem/Lymphatic: No palpable cervical or supraclavicular nodes. No lymphangitis Psych: no agitation Neurological: drowsy, non verbal, non communicative - Constitutional Vitals: Vital Signs Temp Pulse Resp BP Pulse Ox 97.9 F 73 11 L 103/63 99 10/29/18 08:00 10/29/18 08:00 10/29/18 08:00 10/29/18 08:00 10/29/18 08:00 Temperature -Last 24 Hours Temperature 97.9 F Temperature 99.1 F Temperature 99.0 F Temperature 98.2 F Temperature 99.1 F Temperature 99.1 F Temperature 98.0 F Temperature 98.8 F Temperature 100.3 F Temperature 97.5 F - Labs CBC & Chem 7: 10/29/18 00:56 10/28/18 05:58 Labs: Abnormal lab results 10/23/18 10/27/18 10/28/18 Range/Units 11:50 22:48 05:52 WBC (4.5-11.0) K/mm3 RBC (3.65-5.03) M/mm3 Hgb (10.1-14.3) gm/dl Hct (30.3-42.9) % RDW (13.2-15.2) % Lymph % (Auto) (13.4-35.0) % Lane % (Auto) (0.0-7.3) % Lymph # (1.2-5.4) K/mm3 Lane # (0.0-0.8) K/mm3 Seg Neutrophils % (40.0-70.0) % Seg Neutrophils # (1.8-7.7) K/mm3 POC Glucose 232 H 345 H 280 H (70-105) 10/28/18 10/29/18 Range/Units 18:09 00:56 WBC 12.5 H (4.5-11.0) K/mm3 RBC 2.82 L (3.65-5.03) M/mm3 Hgb 8.6 L (10.1-14.3) gm/dl Hct 26.5 L (30.3-42.9) % RDW 16.2 H (13.2-15.2) % Lymph % (Auto) 7.1 L (13.4-35.0) % Lane % (Auto) 9.7 H (0.0-7.3) % Lymph # 0.9 L (1.2-5.4) K/mm3 Lane # 1.2 H (0.0-0.8) K/mm3 Seg Neutrophils % 81.8 H (40.0-70.0) % Seg Neutrophils # 10.2 H (1.8-7.7) K/mm3 POC Glucose 289 H (70-105)
[2018-10-29] MEDS ORDERED: VANCOMYCIN PHARMACY TO DOSE IV SCH (12:00)
[2018-10-29] MEDS ORDERED: VANCOMYCIN/NS 1 GM/250 ML 1 GM/250 ML BAG IV ONE (13:00)
--- NOTE | 2018-10-29 13:15 | Progress Note ---
Assessment and Plan Assessment and plan: Patient is a 63 yo woman with hypertension, dm type 2, gerd, cva, dementia, cad s/p cabg, seizure disorder, OA and CKD 4 (last Cr here was 2.2 on 01/08/2017) who presented to [facility] with AMS x 3 days. She was admitted for severe renal failure/uremic encephalopathy with hyperkalemia. Creatinine was found to be 5.6. She underwent emergent Hemodialysis * CT head without contrast IMPRESSION: 1. Recent infarcts in the left MCA and left VE TEACHER territories. Although there is no volume loss associated with VE TEACHER infarct, the hypoattenuation of the parenchyma and loss of laboy-white differentiation is more conspicuous, suggesting this may be an older infarct. 2. No acute hemorrhage. Report of these findings was called to Dr. Novak in the emergency department at the time of dictation. * pCXR Impression: Increasing right basilar effusion/volume loss * 10/21/2017 EDINSON Conclusions: Left ventricular chamber size is severely dilated, global left ventricular systolic function is severely decreased, estimated EF is 10-15%, RVSF is severely reduced, No ASD, no endocarditis or cardioembolic source * MRI brain without contrast BRAIN / INTRACRANIAL CONTENTS: Multiple ischemic areas seen - the larger areas were seen on recent CT. Branch MCA infarct seen in the middle and inferior frontal gyral region on the left. Branch VE TEACHER infarct seen on the left, including calcarine cortex. Small focus of ischemia seen in the left precuneus. There are small foci of ischemia seen in the superior frontal gyrus and paracentral lobule regions on the right, superiorly. Minimal involvement of the genu/rostrum of the corpus callosum is suggested. Punctate involvement seen in the right parietal temporal region. Other, scattered, punctate areas of ischemia may be present as well. Because of these findings, embolic phenomena should be considered. Otherwise, no acute hemorrhage, mass effect, midline shift, hydrocephalus, or acute, large territorial infarct. No chronic infarct or atrophy. Lacunar infarcts suggested in the thalamic regions. There are moderate areas of increased signal intensity on FLAIR imaging in the white matter of the cerebral hemispheres, as well as the gangliocapsular regions. These are nonspecific findings and may be related to microangiopathy (hypertension, diabetes, atherosclerosis), given the patient's age. CRANIOCERVICAL JUNCTION: No significant abnormality. VASCULAR FLOW-VOIDS: No significant abnormality. ORBITS: No significant abnormality of visualized orbits. SINUSES / MASTOIDS: There is mild mucosal thickening with the ethmoids. ADDITIONAL FINDINGS: None. IMPRESSION: 1. Multiple areas of ischemia as described above, worrisome for embolic phenomenon. No evidence of hemorrhagic transformation at this time. * 10/27/2018 CT brain without Impression: IMPRESSION: No acute intracranial proce ss. Evolving ischemic infarcts in the left frontal lobe and left occipital lobe as described. * US chest Impression: Small bilateral pleural effusions AMS most likely due to Acute Embolic Ischemic Strokes/CVA: supportive care, poor prognosis Hypotension: give another bolus and move to ICU restart IV levophed drip. Acute metabolic encephalopathy, poa:work up in process ARF/CKD 4 vasomotor +ATN: hemodialysis started Hyperkalemia: treated with HD, Veneer Marker following, monitor bmp closely Glaucoma: continue latanoprost eyedrops Vitamin D deficiency: Continue vitamin D Hyperlipidemia: Continue statins Peripheral neuropathy: Continue gabapentin Seizure disorder: Continue Keppra Hypertension: Continue antihypertensives DVT prophylaxis: heparin and GI prophylaxis Full code Disposition: continue inpatient care, was going to SNF but spiked a temp of 101 F on 10/26/18 at 0438 am, this is her second temperature spike, first temp was 10/24/18 @ 0800am of 100.8F. repeat Blood cultures pending, pCXR Impression: Increasing right basilar effusion/volume loss, UA not done because she doesn't make enough urine, She still has thomas and NGT in place. 10/27/18: Consulted ID because patient does have a line and spiking fevers 10/28/18: Unable to do HD due to AMS and patient is Hypotensive, really did not respond to 500 ml ns ivf resuscitative bolus. Will transfer back to ICU. Still with low grade temp of 100.2 F then later 100.3 F I called sister Danay [phone], discussed Hospice, but her main concern is stopping Hemodialysis in Hospice care. She received another bolus of 500 ml 10/29/18: Still hypotensive, left hand peripheral IV; therefore, will need central line for vasopressor, bp too low for Hemodialysis on MWF schedule. Also, NGT still in place poor prognosis CCT 34 minutes History Interval history: Patient was seen and examined. Follow-up on current diagnosis of CVA. No overnight events reported to me. Patient is nonverbal. Imaging, nursing note, chart, labs and old chart reviewed. Hospitalist Physical - Physical exam Narrative exam: Gen: ill appearing, chronically disable appearing, eyes open, chronically non- verbal HEENT: NCAT, EOMI, PERRL, OP Clear Neck: supple, no adenopathy, no thyromegaly, no JVD CVS/Heart: RRR, normal S1S2, pulses present bilaterally Chest/Lungs: CTA B, Symmetrical chest expansion, good air entry bilaterally GI/Abdomen: soft, NTND, good bowel sounds, no guarding or rebound /Bladder: no suprapubic tenderness, no CVA or paraspinal tenderness Extermity/Skin: diffuse hyperpigmented coin lichenification lesion MSK: not following commands Neuro: not following commands Psych: lethargic - Constitutional Vitals: Temp Pulse Resp BP Pulse Ox 98.4 F 71 11 L 105/64 100 10/29/18 12:00 10/29/18 12:00 10/29/18 12:00 10/29/18 12:00 10/29/18 12:00 General appearance: Present: no acute distress Results - Labs CBC & Chem 7: 10/29/18 00:56 10/28/18 05:58 Labs: Laboratory Last Values WBC 12.5 K/mm3 (4.5-11.0) H 10/29/18 00:56 RBC 2.82 M/mm3 (3.65-5.03) L 10/29/18 00:56 Hgb 8.6 gm/dl (10.1-14.3) L 10/29/18 00:56 Hct 26.5 % (30.3-42.9) L 10/29/18 00:56 MCV 94 fl (79-97) 10/29/18 00:56 MCH 31 pg (28-32) 10/29/18 00:56 MCHC 33 % (30-34) 10/29/18 00:56 RDW 16.2 % (13.2-15.2) H 10/29/18 00:56 Plt Count 256 K/mm3 (140-440) 10/29/18 00:56 Lymph % (Auto) 7.1 % (13.4-35.0) L 10/29/18 00:56 [place] % (Auto) 9.7 % (0.0-7.3) H 10/29/18 00:56 Eos % (Auto) 0.8 % (0.0-4.3) 10/29/18 00:56 Baso % (Auto) 0.6 % (0.0-1.8) 10/29/18 00:56 Lymph # 0.9 K/mm3 (1.2-5.4) L 10/29/18 00:56 [place] # 1.2 K/mm3 (0.0-0.8) H 10/29/18 00:56 Eos # 0.1 K/mm3 (0.0-0.4) 10/29/18 00:56 Baso # 0.1 K/mm3 (0.0-0.1) 10/29/18 00:56 Add Manual Diff Complete 10/24/18 04:50 Total Counted 100 10/24/18 04:50 Seg Neutrophils % 81.8 % (40.0-70.0) H 10/29/18 00:56 Seg Neuts % (Manual) 79.0 % (40.0-70.0) H 10/24/18 04:50 4.0 % 10/24/18 04:50 11.0 % (13.4-35.0) L 10/24/18 04:50 Reactive Lymphs % (Man) 0 % 10/24/18 04:50 6.0 % (0.0-7.3) 10/24/18 04:50 0 % (0.0-4.3) 10/24/18 04:50 0 % (0.0-1.8) 10/24/18 04:50 0 % 10/24/18 04:50 0 % 10/24/18 04:50 0 % 10/24/18 04:50 0 % 10/24/18 04:50 Nucleated RBC % Not Reportable 10/24/18 04:50 Seg Neutrophils # 10.2 K/mm3 (1.8-7.7) H 10/29/18 00:56 Seg Neutrophils # Man 8.7 K/mm3 (1.8-7.7) H 10/24/18 04:50 Band Neutrophils # 0.4 K/mm3 10/24/18 04:50 1.2 K/mm3 (1.2-5.4) 10/24/18 04:50 Abs React Lymphs (Man) 0.0 K/mm3 10/24/18 04:50 0.7 K/mm3 (0.0-0.8) 10/24/18 04:50 0.0 K/mm3 (0.0-0.4) 10/24/18 04:50 0.0 K/mm3 (0.0-0.1) 10/24/18 04:50 0.0 K/mm3 10/24/18 04:50 0.0 K/mm3 10/24/18 04:50 0.0 K/mm3 10/24/18 04:50 Blast Cells # 0.0 K/mm3 10/24/18 04:50 Pathologist Review 10/24/18 04:50 WBC Morphology Not Reportable 10/23/18 05:24 Hypersegmented Neuts Not Reportable 10/24/18 04:50 Hyposegmented Neuts Not Reportable 10/24/18 04:50 Hypogranular Neuts Not Reportable 10/24/18 04:50 Few 10/24/18 04:50 Not Reportable 10/24/18 04:50 Not Reportable 10/24/18 04:50 Not Reportable 10/24/18 04:50 Not Reportable 10/24/18 04:50 Not Reportable 10/24/18 04:50 Consistent w auto 10/24/18 04:50 Not Reportable 10/24/18 04:50 Plt Clumps, EDTA Not Reportable 10/24/18 04:50 Not Reportable 10/24/18 04:50 Not Reportable 10/24/18 04:50 Not Reportable 10/24/18 04:50 Plt Morphology Comment Not Reportable 10/24/18 04:50 RBC Morphology Not Reportable 10/24/18 04:50 Dimorphic RBCs Not Reportable 10/24/18 04:50 Not Reportable 10/24/18 04:50 Few 10/24/18 04:50 Not Reportable 10/24/18 04:50 1+ 10/24/18 04:50 Not Reportable 10/24/18 04:50 1+ 10/24/18 04:50 Not Reportable 10/24/18 04:50 Not Reportable 10/24/18 04:50 Not Reportable 10/24/18 04:50 Rare 10/24/18 04:50 Not Reportable 10/24/18 04:50 Few 10/24/18 04:50 Not Reportable 10/24/18 04:50 Not Reportable 10/24/18 04:50 Not Reportable 10/24/18 04:50 3+ 10/24/18 04:50 Not Reportable 10/24/18 04:50 Not Reportable 10/24/18 04:50 Not Reportable 10/24/18 04:50 Acanthocytes (Spur) Not Reportable 10/24/18 04:50 Rouleaux Not Reportable 10/24/18 04:50 Not Reportable 10/24/18 04:50 Not Reportable 10/24/18 04:50 Not Reportable 10/24/18 04:50 Not Reportable 10/24/18 04:50 Hem Pathologist Commnt Sent to pathology 10/24/18 04:50 PT 20.6 Sec. (12.2-14.9) H 10/17/18 10:19 INR 1.81 (0.87-1.13) H 10/17/18 10:19 APTT 35.6 Sec. (24.2-36.6) 10/17/18 10:19 18.7 Sec. (15.1-19.6) 10/17/18 10:19 Heparin Anti-Xa, Unfract Negative (Negative) 10/19/18 08:34 POC ABG pH 7.436 (7.35-7.45) 10/23/18 20:51 POC ABG pCO2 34.3 (35-45) L 10/23/18 20:51 POC ABG pO2 95 (80-105) 10/23/18 20:51 POC ABG HCO3 23.1 (22-26 mml/L) 10/23/18 20:51 POC ABG Total CO2 24 (23-27mmol/L) 10/23/18 20:51 POC ABG O2 Sat 98 10/23/18 20:51 POC ABG Base Excess -1 ((-2) - (+3)mmol/L) 10/23/18 20:51 24 % 10/23/18 20:51 Sodium 138 mmol/L (137-145) 10/28/18 05:58 Potassium 3.9 mmol/L (3.6-5.0) 10/28/18 05:58 Chloride 93.7 mmol/L (98-107) L 10/28/18 05:58 Carbon Dioxide 26 mmol/L (22-30) 10/28/18 05:58 22 mmol/L 10/28/18 05:58 BUN 55 mg/dL (7-17) H 10/28/18 05:58 5.3 mg/dL (0.7-1.2) H 10/28/18 05:58 Estimated GFR 10 ml/min 10/28/18 05:58 10 % 10/28/18 05:58 Glucose 286 mg/dL (65-100) H 10/28/18 05:58 POC Glucose 172 (70-105) H 10/29/18 12:56 Lactic Acid 1.30 mmol/L (0.7-2.0) 10/23/18 14:59 Calcium 8.3 mg/dL (8.4-10.2) L 10/28/18 05:58 Phosphorus 5.30 mg/dL (2.5-4.5) H D 10/23/18 05:24 Magnesium 1.90 mg/dL (1.7-2.3) 10/28/18 05:58 Iron 55 ug/dL (37-170) 10/19/18 08:34 TIBC 193 mcg/dL (250-450) L 10/19/18 08:34 2450.0 ng/mL (13.0-400.0) H 10/19/18 08:34 0.50 mg/dL (0.1-1.2) 10/26/18 06:13 AST 36 units/L (5-40) 10/26/18 06:13 ALT 18 units/L (7-56) 10/26/18 06:13 251 units/L (35-129) H 10/26/18 06:13 28.0 umol/L (25-60) 10/26/18 19:36 458 units/L (91-180) H 10/26/18 06:13 3216 units/L (30-135) H 10/17/18 15:15 4.720 ng/mL (0.00-0.029) H* 10/17/18 Unknown 24.10 mg/dL (0.00-1.30) H 10/23/18 14:59 5.5 g/dL (6.1-8.1) L 10/20/18 05:07 5.9 g/dL (6.3-8.2) L 10/26/18 06:13 3.0 g/dL (3.9-5) L 10/26/18 06:13 1.0 % 10/26/18 06:13 0.4 g/dL (0.2-0.3) H 10/20/18 05:07 0.9 g/dL (0.5-0.9) 10/20/18 05:07 0.3 g/dL (0.2-0.5) 10/20/18 05:07 0.8 g/dL (0.8-1.7) 10/20/18 05:07 Abnorm Protein Band 1 see below 10/20/18 05:07 PEP Interpretation see below H 10/20/18 05:07 Triglycerides 102 mg/dL (2-149) 10/17/18 Unknown Cholesterol 198 mg/dL (50-199) 10/17/18 Unknown 116 mg/dL (50-130) 10/17/18 Unknown 88 mg/dL (40-59) H 10/17/18 Unknown 2.25 % 10/17/18 Unknown See scanned result 10/19/18 08:34 Vitamin B12 1296 pg/mL (211-911) H 10/19/18 08:34 8.42 ng/mL (7.3-26.0) 10/19/18 08:34 TSH 1.030 mlU/mL (0.270-4.200) 10/17/18 Unknown Free T4 1.26 ng/dL (0.76-1.46) 10/17/18 Unknown Yellow (Yellow) 10/17/18 11:25 Slightly-cloudy (Clear) 10/17/18 11:25 5.0 (5.0-7.0) 10/17/18 11:25 Ur Specific [place] 1.019 (1.003-1.030) 10/17/18 11:25 100 mg/dl mg/dL (Negative) 10/17/18 11:25 150 mg/dL (Negative) 10/17/18 11:25 Tr mg/dL (Negative) 10/17/18 11:25 Sm (Negative) 10/17/18 11:25 Neg (Negative) 10/17/18 11:25 Neg (Negative) 10/17/18 11:25 < 2.0 mg/dL (<2.0) 10/17/18 11:25 Ur Leukocyte Esterase Tr (Negative) 10/17/18 11:25 3.0 /HPF (0.0-6.0) 10/17/18 11:25 2.0 /HPF (0.0-6.0) 10/17/18 11:25 Few /HPF 10/17/18 11:25 None seen (None Seen) 10/17/18 13:16 60 ml 10/21/18 18:19 196.7 mg/dL (0.1-20.0) H 10/21/18 18:19 Ur Creatinine 24 Hour 0.1 (0.8-2.8) L 10/21/18 18:19 Height (in) 62.0 inches 10/20/18 13:45 Weight (lb) 126.5 lbs 10/20/18 13:45 3 10/20/18 13:45 Protein/Creatinin Ratio 0.69 10/17/18 13:16 12 mmol/L 10/17/18 13:34 191 mg/dL (5-11.8) H 10/17/18 13:16 Salicylates < 0.3 mg/dL (2.8-20.0) L 10/17/18 Unknown Acetaminophen < 5.0 ug/mL (10.0-30.0) L 10/17/18 Unknown Plasma/Serum Alcohol < 0.01 % (0-0.07) 10/17/18 Unknown Immunofix Electrophor see below 10/20/18 05:07 Heparin-induced Plt Ab Negative (Negative) 10/19/18 08:34 UF Heparin High Dose 0 % Release 10/19/18 08:34 KAILYN UFH Low Dose 0.1 0 % Release 10/19/18 08:34 KAILYN UFH Low Dose 0.5 0 % Release 10/19/18 08:34 Hepatitis A IgM Ab Non-reactive (NonReactive) 10/17/18 15:15 Hep Bs Antigen Non-reactive (Negative) 10/17/18 15:15 Hep B Core IgM Ab Non-reactive (NonReactive) 10/17/18 15:15 Non-reactive (NonReactive) 10/17/18 15:15 Rare 10/17/18 15:43 Flexitest 1 10/20/18 10:53 Active Medications - Current Medications Current Medications: Generic Name Dose Route Start Last Admin Trade Name Freq PRN Reason Stop Dose Admin Lipase/Protease/Amylase 1 each 10/25/18 09:18 10/28/18 09:[address] 10,500 Unit FEEDTUBE 1 each PRN PRN Administration For Clogged Feeding Tube Clopidogrel Bisulfate 75 mg 10/21/18 11:00 10/29/18 11:31 Plavix PO 75 mg QDAY ALLEY Administration Ergocalciferol 50,000 unit 10/24/18 10:00 10/24/18 10:42 Vitamin D2 PO 50,000 unit Sa ALLEY Administration Famotidine 20 mg 10/21/18 10:00 10/29/18 11:32 Pepcid PO 20 mg DAILY ALLEY Administration Gabapentin 300 mg 10/17/18 22:00 10/28/18 21:41 Neurontin PO 300 mg QHS ALLEY Administration Heparin Sodium (Porcine) 5,000 unit 10/29/18 11:30 10/29/18 11:32 Heparin SUB-Q 5,000 unit Q12HR ALLEY Administration Sodium Chloride 100 mls @ 999 mls/hr 10/25/18 14:52 Nacl 0.9% IV LESLIE PRN Hypotension Norepinephrine 8 mg/ Sodium 250 mls @ 3.75 mls/hr 10/28/18 18:00 Chloride IV TITR AL[facility] Protocol 2 MCG/MIN Dobutamine HCl/Dextrose 500 mg in 250 mls @ 3.366 mls/hr 10/29/18 11:00 Dobutrex Drip 500mg/D5w 250ml IV TITR [facility] Protocol 2 MCG/KG/MIN Phenylephrine HCl 100 mg/ 100 mls @ 6 mls/hr 10/29/18 10:30 Sodium Chloride IV TITR [facility] Protocol 100 MCG/MIN Cefepime HCl 0.5 gm/ Sodium 100 mls @ 200 mls/hr 10/29/18 14:00 Chloride IV Q24H ALLEY Protocol Vancomycin HCl 1 gm in 250 mls @ 125 mls/hr 10/29/18 13:00 Vancomycin/Ns 1 Gm/250 Ml IV 10/29/18 14:59 ONCE ONE Insulin Human Lispro 0 unit 10/24/18 12:00 10/29/18 13:09 Humalog SUB-Q 2 unit Q6HR ALLEY Administration Protocol Latanoprost 1 drops 10/17/18 18:00 10/28/18 18:00 Latanoprost 0.005% OU Not Given QPM ALLEY Levetiracetam 500 mg 10/21/18 10:00 10/29/18 11:32 Keppra PO 500 mg BID ALLEY Administration Simple Syrup 15 ml 10/25/18 09:18 Simple Syrup FEEDTUBE PRN PRN Hypoglycemia Simple Syrup 30 ml 10/25/18 09:18 Simple Syrup FEEDTUBE PRN PRN Hypoglycemia Sodium Bicarbonate 325 mg 10/17/18 17:00 10/29/18 11:31 Sodium Bicarbonate PO 325 mg DAILY ALLEY Administration Sodium Bicarbonate 325 mg 10/25/18 09:18 Sodium Bicarbonate FEEDTUBE PRN PRN For Clogged Feeding Tube Nutrition/Malnutrition Assess - Dietary Evaluation Nutrition/Malnutrition Findings: Nutrition Notes Start: 10/18/18 14:28 Freq: Status: Active Protocol: Document 10/26/18 15:43 OH (Rec: 10/26/18 15:50 OH [id number]) Nutrition Notes Initial or Follow up Reassessment Current Diagnosis Acute Kidney Injury,CKD(stage I-IV),Coronary Artery Disease, Diabetes,Hypertension,Heart Failure,Stroke,Hyperlipidemia Other Pertinent Diagnosis PNEUMONIA Current Diet NPO Labs/Tests ALB 3.0 Na 136 K+ 4.7 BUN 54 Cr 6.0 Height 5 ft 2 in Weight 57.6 kg [place] Body Weight (kg) 50.00 BMI 23.2 Subjective/Other Information Pt. to be d/c to [facility] and outpatient dialysis to be continued. Per RN pt had 40 cc residual but no n/v/diarrhea associated with TF. Pt. in dialysis upon RD visit. Burn Absent Trauma Absent #1 Nutrition Diagnosis Inadequate oral intake Is patient on ventilator? No Is Patient Ambulatory and/or Out of Bed No REE-([facility]-confined to bed) 1306.452 Calculation Used for Recommendations [facility] Additional Notes Protein Needs: 69-86g(1.2-1.5g /kg) Fluid Needs: 1 ml/kcal Nutrition Intervention Change Diet Order: TF Nutrition Support: Nepro at 30ml/hr Flush with 120ml q4h Kcal 1,296 Protein (gm) 58 Fluid (mL) 523 Goal #1 Meet at least 80% of kcal and protein needs via TF Anticipated Discharge Needs: Unable to determine at this time Follow-Up By: 10/29/18 Additional Comments Follow for TF start/tolerance, renal labs
[2018-10-29] MEDS: DOBUTREX DRIP 500MG/D5W 250ML 500 MG/250 ML BAG IV SCH (13:28)
[2018-10-29] MEDS: NEO-SYNEPHRINE 100 MG in NACL 0.9% 90 ML IV SCH (13:40)
[2018-10-29] MEDS: MAXIPIME 0.5 GM in NACL 0.9% 100 ML IV SCH (13:43)
[2018-10-29 13:52] LABS: Calcium 8.6 mg/dL (8.4-10.2)
[2018-10-29] MEDS ORDERED: TYLENOL FEEDTUBE PRN (15:49)
[2018-10-29] MEDS: LATANOPROST 0.005% OU SCH (18:26)
[2018-10-29] MEDS: NEURONTIN PO SCH (21:30)
[2018-10-30] MEDS: HumaLOG SUB-Q SCH ×5 (00:44→23:57)
[2018-10-30] MEDS ORDERED: D50W (25GM) Syringe IV ONE (05:27)
[2018-10-30] MEDS: NEO-SYNEPHRINE 100 MG in NACL 0.9% 90 ML IV SCH ×2 (06:31→16:34)
--- NOTE | 2018-10-30 07:01 | Hem/Onc Progress Note ---
Assessment and Plan 1. Elevated LDH. Smear has been evaluated. HIT NEGATIVE, [id number] 90% 2. Renal impairment. Nephrology team following the patient. SPEP normal 3. low plt - deficiency investigation. The smear evaluation is being done. The platelet counts at admission were normal and then have gone down. The cause of thrombocytopenia unclear. Her mentation is also not perfect. I will follow the trend of the counts. b12 - folate - iron ferritin normal 4. Cerebrovascular accident?. neurology following. 5. Electrolyte imbalance. 6. Vitamin D deficiency. 8. History of diabetes. 9. History of hypertension. 10. History of seizure. 11. Hyperlipidemia. neurology following - cva Stroke: - Likely cardio-embolic, as b/l infarcts seen on MRI. - MRA head/neck did not reveal any significant stenosis - Echo: EF 10-15%, bubble study negative, LA moderately dilated - EDINSON did not reveal any evidence of intracardiac thrombi. 10/30 - plt normalized hb stable nursing home physician high [id number] 90% - less likely TTP plt rare schistocytes HIT neg SPEP no monoclonal band LDH lower - last 400, in past this was 800s will follow pt pt on pressors - moves left arm - Patient Problems (1) Thrombocytopenia Current Visit: Yes Status: Acute Subjective Date of service: 10/30/18 Principal diagnosis: anemia Interval history: moving left arm - on pressors Objective - Exam Narrative Exam: Pain Not evaluable General appearance no acute distress Performance status -completely disabled Eyes EOM not able to evaluate ENT no nose/ear bleed LNs cervical not palpable Neck Not evaluable Respiratory Normal Breath sounds - CTA anteriorly CVS S1 S2 + Extremities normal temperature/ no edema General GI Soft non tender Rectal deferred Female - deferred Skin warm Musculoskeletal moves left arm Neurologically OPENS EYES - moves left arm - Constitutional Vitals: Last Vital Signs Temp 97.8 F 10/30/18 03:18 Pulse 86 10/30/18 06:30 Resp 17 10/30/18 06:30 BP 107/61 10/30/18 06:30 Pulse Ox 99 10/30/18 06:30 - Labs Lab Results: Laboratory Results - last 24 hr 10/27/18 10/28/18 10/29/18 22:48 05:52 12:56 Sodium Potassium Chloride Carbon Dioxide Anion Gap BUN Creatinine Estimated GFR BUN/Creatinine Ratio Glucose POC Glucose 345 H 280 H 172 H Calcium 08/10/29/18 10/30/18 13:25 17:58 00:18 Sodium 134 L Potassium 4.1 Chloride 90.8 L Carbon Dioxide 27 Anion Gap 20 BUN 75 H Creatinine 6.5 H Estimated GFR 8 BUN/Creatinine Ratio 12 Glucose 251 H POC Glucose 227 H 279 H Calcium 8.6 10/30/18 05:30 Sodium Potassium Chloride Carbon Dioxide Anion Gap BUN Creatinine Estimated GFR BUN/Creatinine Ratio Glucose POC Glucose 230 H Calcium Medications & Allergies - Medications Allergies/Adverse Reactions: Allergies NSAIDS (Non-Steroidal Anti-Inflamma Adverse Reaction (Verified 01/02/17 05:56) Unknown Tetracyclines Adverse Reaction (Verified 09/26/14 12:09) Unknown Home Medications: Home Medications Medication Instructions Recorded Confirmed Last Taken Type Ergocalciferol [Vitamin D2] 50,000 unit PO QWEEK capsule 09/25/16 10/17/18 Unknown Rx Latanoprost 0.005% 1 drop OP QPM 01/02/17 10/17/18 Unknown History Sodium Bicarbonate 325 mg PO DAILY 01/02/17 10/17/18 Unknown History Clopidogrel [Plavix] 75 mg PO DAILY #30 tablet 01/08/17 10/17/18 Unknown Rx Docusate Sodium [Colace CAP] 100 mg PO BID #60 capsule 01/08/17 10/17/18 Unknown Rx Famotidine [Pepcid] 10 mg PO BID #60 tablet 01/08/17 10/17/18 Unknown Rx Gabapentin [Neurontin] 300 mg PO QHS #30 capsule 01/08/17 10/17/18 Unknown Rx Simvastatin [Zocor TAB] 20 mg PO QHS #60 tablet 01/08/17 10/17/18 Unknown Rx glipiZIDE [Glucotrol] 5 mg PO QDDIAB #60 tablet 01/08/17 10/17/18 Unknown Rx hydrALAZINE [Apresoline TAB] 10 mg PO Q8HR #90 tablet 01/08/17 10/17/18 Unknown Rx levETIRAcetam [Keppra TAB] 500 mg PO BID #60 tablet 01/08/17 10/17/18 Unknown Rx Active Medications: Generic Name Dose Route Start Last Admin Trade Name Freq PRN Reason Stop Dose Admin Acetaminophen 650 mg 10/29/18 15:49 10/29/18 16:46 Tylenol FEEDTUBE 650 mg Q6H PRN Administration Pain, Mild (1-3) Lipase/Protease/Amylase 1 each 10/25/18 09:18 10/28/18 09:38 Pancreakila Bruner 10,500 Unit FEEDTUBE 1 each PRN PRN Administration For Clogged Feeding Tube Clopidogrel Bisulfate 75 mg 10/21/18 11:00 10/29/18 11:31 Plavix PO 75 mg QDAY ALLEY Administration Ergocalciferol 50,000 unit 10/24/18 10:00 10/24/18 10:42 Vitamin D2 PO 50,000 unit Sa ALLEY Administration Famotidine 20 mg 10/21/18 10:00 10/29/18 11:32 Pepcid PO 20 mg DAILY ALLEY Administration Gabapentin 300 mg 10/17/18 22:00 10/29/18 21:30 Neurontin PO 300 mg QHS ALLEY Administration Heparin Sodium (Porcine) 5,000 unit 10/29/18 11:30 10/29/18 21:34 Heparin SUB-Q 5,000 unit Q12HR ALLEY Administration Sodium Chloride 100 mls @ 999 mls/hr 10/25/18 14:52 Nacl 0.9% IV LESLIE PRN Hypotension Norepinephrine 8 mg/ Sodium 250 mls @ 3.75 mls/hr 10/28/18 18:00 Chloride IV TITR [facility] Protocol 2 MCG/MIN Dobutamine HCl/Dextrose 500 mg in 250 mls @ 3.366 mls/hr 10/29/18 11:00 10/29/18 13:28 Dobutrex Drip 500mg/D5w 250ml IV 2 mcg/kg/min TITR ALLEY 3.366 mls/hr Administration Protocol 2 MCG/KG/MIN Phenylephrine HCl 100 mg/ 100 mls @ 6 mls/hr 10/29/18 10:30 10/30/18 06:31 Sodium Chloride IV 100 mcg/min TITR ALLEY 6 mls/hr Administration Protocol 100 MCG/MIN Cefepime HCl 0.5 gm/ Sodium 100 mls @ 200 mls/hr 10/29/18 14:00 10/29/18 13:43 Chloride IV 200 mls/hr Q24H ALLEY Administration Protocol Insulin Human Lispro 0 unit 10/24/18 12:00 10/30/18 05:47 Humalog SUB-Q 3 unit Q6HR ALLEY Administration Protocol Latanoprost 1 drops 10/17/18 18:00 10/29/18 18:26 Latanoprost 0.005% OU Not Given QPM ALLEY Levetiracetam 500 mg 10/21/18 10:00 10/29/18 21:30 Keppra PO 500 mg BID ALLEY Administration Simple Syrup 15 ml 10/25/18 09:18 Simple Syrup FEEDTUBE PRN PRN Hypoglycemia Simple Syrup 30 ml 10/25/18 09:18 Simple Syrup FEEDTUBE PRN PRN Hypoglycemia Sodium Bicarbonate 325 mg 10/17/18 17:00 10/29/18 11:31 Sodium Bicarbonate PO 325 mg DAILY ALLEY Administration Sodium Bicarbonate 325 mg 10/25/18 09:18 Sodium Bicarbonate FEEDTUBE PRN PRN For Clogged Feeding Tube
[2018-10-30] MEDS: HEPARIN SUB-Q SCH ×2 (09:02→21:27)
[2018-10-30] MEDS: KEPPRA PO SCH ×2 (09:03→21:27)
[2018-10-30] MEDS: PLAVIX PO SCH (09:03)
[2018-10-30] MEDS: SODIUM BICARBONATE PO SCH (09:04)
[2018-10-30] MEDS: PEPCID PO SCH (09:04)
--- NOTE | 2018-10-30 10:49 | Progress Note ---
Assessment and Plan Cultures: 10/17/2018 urine culture: No growth 10/23/2018 and blood culture: No growth 10/26/2018 blood culture: no growth A/P: 63-year-old female who was admitted to the hospital on 10/17/2018 with altered mental status. She has a history of hypertension, diabetes mellitus type 2, CVA, dementia, CAD status post CABG, CKD stage IV. Upon evaluation in the ER, she was found to have worsening renal function requiring urgent hemodialysis: 1) Isolated fevers: Improved, 2 episodes so far throughout the hospitalization. Blood cultures have remained negative. No evidence of pneumonia. Chest x-ray shows bilateral pleural effusions. She does not appear to have any respiratory distress. Wounds are quite superficial and do not appear to be infected. A central fever is quite possible. Given hypotension / shock, persistent low grade fevers with leucocytosis, on therapeutic trial with abx IV Cefepime and Vancomycin and monitor response. 2) Bilateral CVA: ?cardioembolic stroke. Low EF of 5-10%, EDINSON negative for thrombus or vegetation. 3) ARF / ESRD: on hemodialysis. Recs: continue empiric IV Cefepime and Vancomycin, stop tomorrow no evidence of infectious process found suspect ?central fever as well as cardiogenic shock/global ischemia/hypoperfusio n overall poor prognosis, discussed with sister at bedside Bernice Torres MD, FACP [facility] ([facility] C: [phone] O: [phone] F: [phone] Subjective Date of service: 10/30/18 Principal diagnosis: anemia Interval history: No fever. Remains hypotensive requiring pressors. Drowsy. Sister at bedside. Objective - Exam Narrative Exam: Physical Exam: Constitutional: no distress, non verbal, doesn't follow commands Head, Ears, Nose: Normocephalic, atraumatic. External ears, nose normal Eyes: Conjunctivae/corneas clear. No icterus. No ptosis. Neck: Supple, no meningeal signs Oral: Unable to examine Cardiovascular: S1, S2 normal. Respiratory: Good air entry, clear to auscultation bilaterally GI: Soft, non-tender; bowel sounds normal. No peritoneal signs Musculoskeletal: No pedal edema, no cyanosis. Skin: No rash or abscess. Multiple hyperpigmented spots, ?early calciphylaxis. Superficial wounds on legs, with dressings Hem/Lymphatic: No palpable cervical or supraclavicular nodes. No lymphangitis Psych: no agitation Neurological: drowsy, non verbal, non communicative - Constitutional Vitals: Vital Signs Temp Pulse Resp BP Pulse Ox 98.6 F 108 H 17 171/111 98 10/30/18 08:00 10/30/18 08:01 10/30/18 08:01 10/30/18 08:01 10/30/18 08:13 Temperature -Last 24 Hours Temperature 98.6 F Temperature 97.8 F Temperature 97.5 F Temperature 97.4 F Temperature 98.0 F Temperature 98.4 F - Labs CBC & Chem 7: 10/29/18 00:56 10/29/18 13:25 Labs: Abnormal lab results 10/29/18 10/29/18 10/29/18 Range/Units 12:56 13:25 17:58 Sodium 134 L (137-145) mmol/L Chloride 90.8 L (98-107) mmol/L BUN 75 H (7-17) mg/dL Creatinine 6.5 H (0.7-1.2) mg/dL Glucose 251 H (65-100) mg/dL POC Glucose 172 H 227 H (70-105) 10/30/18 10/30/18 Range/Units 00:18 05:30 Sodium (137-145) mmol/L Chloride (98-107) mmol/L BUN (7-17) mg/dL Creatinine (0.7-1.2) mg/dL Glucose (65-100) mg/dL POC Glucose 279 H 230 H (70-105)
[2018-10-30] MEDS ORDERED: NACL 0.9% 100 ML IV PRN (12:00)
--- NOTE | 2018-10-30 13:25 | Progress Note ---
Assessment and Plan Acute renal failure on chronic kidney disease stage III/IV AG metabolic acidosis, Resolved Hyperkalemia, Resolved Metabolic encephalopathy CVA - Hemodialysis was held yesterday due to hemodynamically instability - Resume hemodialysis today - Hypotension-On Dobutamine drip and Phenylephrine - Urine eosinophils were negative - Renal US-negative for obstruction - Renally dose medications - Strict I&O monitoring - Obtain daily weights - Assess dialysis needs daily - Outpatient HD arranged for [facility] Subjective Date of service: 10/30/18 Principal diagnosis: anemia Interval history: Patient seen lying in bed. Does not communicate. Eyes closed. No family at bedside. Objective - Vital Signs Vital signs: Vital Signs - 12hr 10/30/18 10/30/18 10/30/18 01:30 02:00 02:30 Temperature Pulse Rate 85 87 85 Pulse Rate [ From Monitor] Respiratory 13 17 14 Rate Blood Pressure 117/67 123/67 122/67 O2 Sat by Pulse 100 100 95 Oximetry 10/30/18 10/30/18 10/30/18 03:00 03:18 03:30 Temperature 97.8 F Pulse Rate 85 87 Pulse Rate [ From Monitor] Respiratory 12 11 L Rate Blood Pressure 117/68 119/68 O2 Sat by Pulse 98 100 Oximetry 10/30/18 10/30/18 10/30/18 04:00 04:30 05:00 Temperature Pulse Rate 87 86 83 Pulse Rate [ 87 From Monitor] Respiratory 17 14 14 Rate Blood Pressure 115/60 115/67 101/58 O2 Sat by Pulse 100 97 99 Oximetry 10/30/18 10/30/18 10/30/18 05:30 06:00 06:30 Temperature Pulse Rate 83 84 86 Pulse Rate [ From Monitor] Respiratory 14 15 17 Rate Blood Pressure 96/55 98/55 107/61 O2 Sat by Pulse 99 100 99 Oximetry 10/30/18 10/30/18 10/30/18 07:00 07:30 08:00 Temperature 98.6 F Pulse Rate 87 87 Pulse Rate [ 108 H From Monitor] Respiratory 15 17 17 Rate Blood Pressure 127/72 123/73 O2 Sat by Pulse 96 98 94 Oximetry 10/30/18 10/30/18 10/30/18 08:01 08:13 08:31 Temperature Pulse Rate 108 H 90 Pulse Rate [ From Monitor] Respiratory 17 15 Rate Blood Pressure 171/111 137/89 O2 Sat by Pulse 94 98 99 Oximetry 08/16/19 08/16/19 08/16/19 09:00 09:31 10:00 Temperature Pulse Rate 89 88 89 Pulse Rate [ From Monitor] Respiratory 16 14 17 Rate Blood Pressure 119/72 119/72 119/73 O2 Sat by Pulse 100 100 100 Oximetry 10/30/18 10/30/18 10/30/18 10:31 11:00 11:31 Temperature Pulse Rate 89 88 89 Pulse Rate [ From Monitor] Respiratory 17 16 16 Rate Blood Pressure 119/73 123/74 123/74 O2 Sat by Pulse 100 100 100 Oximetry 10/30/18 10/30/18 10/30/18 11:54 12:00 12:31 Temperature 98.7 F Pulse Rate 88 88 90 Pulse Rate [ 88 From Monitor] Respiratory 15 17 Rate Blood Pressure 122/73 122/73 O2 Sat by Pulse 100 100 Oximetry 10/30/18 13:00 Temperature Pulse Rate 90 Pulse Rate [ From Monitor] Respiratory 16 Rate Blood Pressure 123/75 O2 Sat by Pulse 100 Oximetry - General Appearance General appearance: other (Does not follow commands) EENT: ATNC Neck: no JVD, supple Respiratory: Present: Decreased Breath Sounds Cardiology: S1S2 Gastrointestinal: normoactive bowel sounds, other (has dobhoff tube feed) Integumentary: warm and dry Neurologic: other (lethargic) Musculoskeletal: other (No edema) - Lab 10/29/18 00:56 10/29/18 13:25 Most recent lab results Calcium 8.6 mg/dL (8.4-10.2) 10/29/18 13:25 Phosphorus 5.30 mg/dL (2.5-4.5) H D 10/23/18 05:24 Magnesium 1.90 mg/dL (1.7-2.3) 10/28/18 05:58 196.7 mg/dL (0.1-20.0) H 10/21/18 18:19 12 mmol/L 10/17/18 13:34 191 mg/dL (5-11.8) H 10/17/18 13:16 Medications & Allergies - Medications Allergies/Adverse Reactions: Allergies NSAIDS (Non-Steroidal Anti-Inflamma Adverse Reaction (Verified 01/02/17 05:56) Unknown Tetracyclines Adverse Reaction (Verified 09/26/14 12:09) Unknown Home Medications: Home Medications Medication Instructions Recorded Confirmed Last Taken Type Ergocalciferol [Vitamin D2] 50,000 unit PO QWEEK capsule 09/25/16 10/17/18 Unknown Rx Latanoprost 0.005% 1 drop OP QPM 01/02/17 10/17/18 Unknown History Sodium Bicarbonate 325 mg PO DAILY 01/02/17 10/17/18 Unknown History Clopidogrel [Plavix] 75 mg PO DAILY #30 tablet 01/08/17 10/17/18 Unknown Rx Docusate Sodium [Colace CAP] 100 mg PO BID #60 capsule 01/08/17 10/17/18 Unknown Rx Famotidine [Pepcid] 10 mg PO BID #60 tablet 01/08/17 10/17/18 Unknown Rx Gabapentin [Neurontin] 300 mg PO QHS #30 capsule 01/08/17 10/17/18 Unknown Rx Simvastatin [Zocor TAB] 20 mg PO QHS #60 tablet 01/08/17 10/17/18 Unknown Rx glipiZIDE [Glucotrol] 5 mg PO QDDIAB #60 tablet 01/08/17 10/17/18 Unknown Rx hydrALAZINE [Apresoline TAB] 10 mg PO Q8HR #90 tablet 01/08/17 10/17/18 Unknown Rx levETIRAcetam [Keppra TAB] 500 mg PO BID #60 tablet 01/08/17 10/17/18 Unknown Rx Active Medications: Generic Name Dose Route Start Last Admin Trade Name Freq PRN Reason Stop Dose Admin Acetaminophen 650 mg 10/29/18 15:49 10/29/18 16:46 Tylenol FEEDTUBE 650 mg Q6H PRN Administration Pain, Mild (1-3) Lipase/Protease/Amylase 1 each 10/25/18 09:18 10/28/18 09:38 Pancreazsavannah Bruner 10,500 Unit FEEDTUBE 1 each PRN PRN Administration For Clogged Feeding Tube Clopidogrel Bisulfate 75 mg 10/21/18 11:00 10/30/18 09:03 Plavix PO 75 mg QDAY ALLEY Administration Ergocalciferol 50,000 unit 10/24/18 10:00 10/24/18 10:42 Vitamin D2 PO 50,000 unit Sa ALELY Administration Famotidine 20 mg 10/21/18 10:00 08/16/19 09:04 Pepcid PO 20 mg DAILY ALLEY Administration Gabapentin 300 mg 10/17/18 22:00 10/29/18 21:30 Neurontin PO 300 mg QHS ALLEY Administration Heparin Sodium (Porcine) 5,000 unit 10/29/18 11:30 10/30/18 09:02 Heparin SUB-Q 5,000 unit Q12HR ALLEY Administration Norepinephrine 8 mg/ Sodium 250 mls @ 3.75 mls/hr 10/28/18 18:00 Chloride IV TITR ALLEY Protocol 2 MCG/MIN Dobutamine HCl/Dextrose 500 mg in 250 mls @ 3.366 mls/hr 10/29/18 11:00 10/29/18 13:28 Dobutrex Drip 500mg/D5w 250ml IV 2 mcg/kg/min TITR ALLEY 3.366 mls/hr Administration Protocol 2 MCG/KG/MIN Phenylephrine HCl 100 mg/ 100 mls @ 6 mls/hr 10/29/18 10:30 10/30/18 06:31 Sodium Chloride IV 100 mcg/min TITR ALLEY 6 mls/hr Administration Protocol 100 MCG/MIN Cefepime HCl 0.5 gm/ Sodium 100 mls @ 200 mls/hr 10/29/18 14:00 10/29/18 13:43 Chloride IV 10/31/18 23:59 200 mls/hr Q24H ALLEY Administration Protocol Sodium Chloride 100 mls @ 999 mls/hr 10/30/18 12:00 Nacl 0.9% IV LESLIE PRN Hypotension Insulin Human Lispro 0 unit 10/24/18 12:00 10/30/18 05:47 Humalog SUB-Q 3 unit Q6HR ALLEY Administration Protocol Latanoprost 1 drops 10/17/18 18:00 10/29/18 18:26 Latanoprost 0.005% OU Not Given QPM ALLEY Levetiracetam 500 mg 10/21/18 10:00 10/30/18 09:03 Keppra PO 500 mg BID ALLEY Administration Simple Syrup 15 ml 10/25/18 09:18 Simple Syrup FEEDTUBE PRN PRN Hypoglycemia Simple Syrup 30 ml 10/25/18 09:18 Simple Syrup FEEDTUBE PRN PRN Hypoglycemia Sodium Bicarbonate 325 mg 10/17/18 17:00 10/30/18 09:04 Sodium Bicarbonate PO 325 mg DAILY ALLEY Administration Sodium Bicarbonate 325 mg 10/25/18 09:18 Sodium Bicarbonate FEEDTUBE PRN PRN For Clogged Feeding Tube
[2018-10-30] MEDS: MAXIPIME 0.5 GM in NACL 0.9% 100 ML IV SCH (13:27)
--- NOTE | 2018-10-30 13:38 | Progress Note ---
Assessment and Plan Post procedure hypotension, resolved Subacute CVA Acute metabolic encephalopathy ARF/CKD 4 vasomotor +ATN Hyperkalemia: Hx of cad, s/p CABG New onset systolic CHF EF 5-10% Wide complex tachycardia Thrombocytopenia -Cardio-protective measures -Heart failure measures -Supportive HD -VTE prophylaxis -Aspiration precautions, nutrition consult for tube feeding -PT/OT/ST -VTE prophylaxis -Secondary stroke prophylaxis -Life vest -Avoid nephrotoxins Subjective Date of service: 10/30/18 Principal diagnosis: anemia Interval history: Patient is seen today for: Hypotension requiring vasopressor support. Seen and examined at bedside; 24hour events reviewed; nursing and respiratory care staff consulted; no adverse overnight events reported to me; Transferred to ICU for hypotension and low grade fevers with some encephalopathy Vitals, labs,medications, chart reviewed Objective Vital Signs - 12hr 10/30/18 10/30/18 10/30/18 02:00 02:30 03:00 Temperature Pulse Rate 87 85 85 Pulse Rate [ From Monitor] Respiratory 17 14 12 Rate Blood Pressure 123/67 122/67 117/68 O2 Sat by Pulse 100 95 98 Oximetry 10/30/18 10/30/18 10/30/18 03:18 03:30 04:00 Temperature 97.8 F Pulse Rate 87 87 Pulse Rate [ 87 From Monitor] Respiratory 11 L 17 Rate Blood Pressure 119/68 115/60 O2 Sat by Pulse 100 100 Oximetry 10/30/18 10/30/18 10/30/18 04:30 05:00 05:30 Temperature Pulse Rate 86 83 83 Pulse Rate [ From Monitor] Respiratory 14 14 14 Rate Blood Pressure 115/67 101/58 96/55 O2 Sat by Pulse 97 99 99 Oximetry 10/30/18 10/30/18 10/30/18 06:00 06:30 07:00 Temperature Pulse Rate 84 86 87 Pulse Rate [ From Monitor] Respiratory 15 17 15 Rate Blood Pressure 98/55 107/61 127/72 O2 Sat by Pulse 100 99 96 Oximetry 10/30/18 10/30/18 10/30/18 07:30 08:00 08:01 Temperature 98.6 F Pulse Rate 87 108 H Pulse Rate [ 108 H From Monitor] Respiratory 17 17 17 Rate Blood Pressure 123/73 171/111 O2 Sat by Pulse 98 94 94 Oximetry 08/16/19 08/16/19 08/16/19 08:13 08:31 09:00 Temperature Pulse Rate 90 89 Pulse Rate [ From Monitor] Respiratory 15 16 Rate Blood Pressure 137/89 119/72 O2 Sat by Pulse 98 99 100 Oximetry 10/30/18 10/30/18 10/30/18 09:31 10:00 10:31 Temperature Pulse Rate 88 89 89 Pulse Rate [ From Monitor] Respiratory 14 17 17 Rate Blood Pressure 119/72 119/73 119/73 O2 Sat by Pulse 100 100 100 Oximetry 10/30/18 10/30/18 10/30/18 11:00 11:31 11:54 Temperature Pulse Rate 88 89 88 Pulse Rate [ From Monitor] Respiratory 16 16 Rate Blood Pressure 123/74 123/74 O2 Sat by Pulse 100 100 Oximetry 10/30/18 10/30/18 10/30/18 12:00 12:31 13:00 Temperature 98.7 F Pulse Rate 88 90 90 Pulse Rate [ 88 From Monitor] Respiratory 15 17 16 Rate Blood Pressure 122/73 122/73 123/75 O2 Sat by Pulse 100 100 100 Oximetry Constitutional: no acute distress, asleep Eyes: non-icteric ENT: oropharynx moist Neck: supple, no lymphadenopathy Ascultation: Bilateral: clear Cardiovascular: regular rate and rhythm Gastrointestinal: normoactive bowel sounds, soft, non-tender Integumentary: normal Neurologic: other (patient sleeping) Psychiatric: other (patient sleeping) CBC and BMP: 10/29/18 00:56 10/29/18 13:25 ABG, PT/INR, D-dimer: ABG POC ABG pH 7.436 (7.35-7.45) 10/23/18 20:51 POC ABG pCO2 34.3 (35-45) L 10/23/18 20:51 POC ABG pO2 95 (80-105) 10/23/18 20:51 POC ABG HCO3 23.1 (22-26 mml/L) 10/23/18 20:51 POC ABG Total CO2 24 (23-27mmol/L) 10/23/18 20:51 POC ABG O2 Sat 98 10/23/18 20:51 PT/INR, D-dimer PT 20.6 Sec. (12.2-14.9) H 10/17/18 10:19 INR 1.81 (0.87-1.13) H 10/17/18 10:19 Abnormal lab findings: Abnormal Labs 10/17/18 10/17/18 10/17/18 10:16 10:19 10:19 WBC RBC Hgb Hct MCV RDW Plt Count Lymph % (Auto) 9.5 L [place] % (Auto) Lymph # 1.0 L [place] # Seg Neutrophils % 84.7 H Seg Neuts % (Manual) Lymphocytes % (Manual) Monocytes % (Manual) Nucleated RBC % Seg Neutrophils # 8.7 H Seg Neutrophils # Man Lymphocytes # (Manual) PT 20.6 H INR 1.81 H POC ABG pH POC ABG pCO2 POC ABG pO2 Sodium Potassium Chloride Carbon Dioxide BUN Creatinine Glucose POC Glucose 277 H Calcium Phosphorus TIBC Ferritin AST ALT Alkaline Phosphatase Lactate Dehydrogenase Total Creatine Kinase Troponin T C-Reactive Protein Serum Total Protein Total Protein Albumin Wzfwk-5-Cdactoxzp PEP Interpretation HDL Cholesterol Vitamin B12 Urine Creatinine Ur Creatinine 24 Hour Urine Total Protein Salicylates Acetaminophen 10/17/18 10/17/18 10/17/18 13:14 13:16 13:34 WBC RBC Hgb Hct MCV RDW Plt Count Lymph % (Auto) [place] % (Auto) Lymph # [place] # Seg Neutrophils % Seg Neuts % (Manual) Lymphocytes % (Manual) Monocytes % (Manual) Nucleated RBC % Seg Neutrophils # Seg Neutrophils # Man Lymphocytes # (Manual) PT INR POC ABG pH POC ABG pCO2 POC ABG pO2 Sodium Potassium Chloride Carbon Dioxide BUN Creatinine Glucose POC Glucose 330 H Calcium Phosphorus TIBC Ferritin AST ALT Alkaline Phosphatase Lactate Dehydrogenase Total Creatine Kinase Troponin T C-Reactive Protein Serum Total Protein Total Protein Albumin Lukwq-6-Vzmklkpaf PEP Interpretation HDL Cholesterol Vitamin B12 Urine Creatinine 276.0 H 271.1 H Ur Creatinine 24 Hour Urine Total Protein 191 H Salicylates Acetaminophen 10/17/18 10/17/18 10/17/18 15:15 21:03 Unknown WBC RBC Hgb Hct MCV RDW Plt Count Lymph % (Auto) [place] % (Auto) Lymph # [place] # Seg Neutrophils % Seg Neuts % (Manual) Lymphocytes % (Manual) Monocytes % (Manual) Nucleated RBC % Seg Neutrophils # Seg Neutrophils # Man Lymphocytes # (Manual) PT INR POC ABG pH POC ABG pCO2 POC ABG pO2 Sodium Potassium 6.6 H* Chloride Carbon Dioxide 10 L BUN 111 H Creatinine 6.5 H Glucose 351 H POC Glucose 143 H Calcium Phosphorus TIBC Ferritin AST ALT Alkaline Phosphatase Lactate Dehydrogenase Total Creatine Kinase 3216 H Troponin T 4.720 H* C-Reactive Protein Serum Total Protein Total Protein Albumin Ykugw-1-Xuqhehfge PEP Interpretation HDL Cholesterol 88 H Vitamin B12 Urine Creatinine Ur Creatinine 24 Hour Urine Total Protein Salicylates Acetaminophen 10/17/18 10/17/18 10/18/18 Unknown Unknown 07:29 WBC RBC Hgb Hct MCV RDW Plt Count Lymph % (Auto) [place] % (Auto) Lymph # [place] # Seg Neutrophils % Seg Neuts % (Manual) Lymphocytes % (Manual) Monocytes % (Manual) Nucleated RBC % Seg Neutrophils # Seg Neutrophils # Man Lymphocytes # (Manual) PT INR POC ABG pH POC ABG pCO2 POC ABG pO2 Sodium Potassium Chloride Carbon Dioxide BUN Creatinine Glucose POC Glucose 120 H Calcium Phosphorus TIBC Ferritin AST ALT Alkaline Phosphatase Lactate Dehydrogenase Total Creatine Kinase Troponin T C-Reactive Protein Serum Total Protein Total Protein Albumin Ocqqb-0-Kuglvhrqh PEP Interpretation HDL Cholesterol Vitamin B12 Urine Creatinine Ur Creatinine 24 Hour Urine Total Protein Salicylates < 0.3 L Acetaminophen < 5.0 L 10/18/18 10/18/18 10/18/18 09:09 09:09 12:21 WBC RBC 3.28 L Hgb Hct MCV RDW Plt Count 125 L Lymph % (Auto) 13.2 L [place] % (Auto) Lymph # 1.1 L [place] # Seg Neutrophils % 80.7 H Seg Neuts % (Manual) Lymphocytes % (Manual) Monocytes % (Manual) Nucleated RBC % Seg Neutrophils # Seg Neutrophils # Man Lymphocytes # (Manual) PT INR POC ABG pH POC ABG pCO2 POC ABG pO2 Sodium Potassium Chloride 97.9 L Carbon Dioxide 20 L D BUN 38 H Creatinine 3.2 H D Glucose 207 H POC Glucose 180 H Calcium Phosphorus TIBC Ferritin AST ALT Alkaline Phosphatase Lactate Dehydrogenase Total Creatine Kinase Troponin T C-Reactive Protein Serum Total Protein Total Protein Albumin Nmkxg-0-Oyispwrva PEP Interpretation HDL Cholesterol Vitamin B12 Urine Creatinine Ur Creatinine 24 Hour Urine Total Protein Salicylates Acetaminophen 10/18/18 10/18/18 10/19/18 17:14 20:50 05:20 WBC RBC 3.46 L Hgb Hct MCV 98 H RDW 16.4 H Plt Count 55 L Lymph % (Auto) [place] % (Auto) Lymph # [place] # Seg Neutrophils % Seg Neuts % (Manual) Lymphocytes % (Manual) Monocytes % (Manual) 9.0 H Nucleated RBC % 4.0 H Seg Neutrophils # Seg Neutrophils # Man Lymphocytes # (Manual) PT INR POC ABG pH POC ABG pCO2 POC ABG pO2 Sodium Potassium Chloride Carbon Dioxide BUN Creatinine Glucose POC Glucose 256 H 335 H Calcium Phosphorus TIBC Ferritin AST ALT Alkaline Phosphatase Lactate Dehydrogenase Total Creatine Kinase Troponin T C-Reactive Protein Serum Total Protein Total Protein Albumin Dkrrx-5-Mkvpeldos PEP Interpretation HDL Cholesterol Vitamin B12 Urine Creatinine Ur Creatinine 24 Hour Urine Total Protein Salicylates Acetaminophen 10/19/18 10/19/18 10/19/18 05:20 08:34 08:34 WBC RBC Hgb Hct MCV RDW Plt Count Lymph % (Auto) [place] % (Auto) Lymph # [place] # Seg Neutrophils % Seg Neuts % (Manual) Lymphocytes % (Manual) Monocytes % (Manual) Nucleated RBC % Seg Neutrophils # Seg Neutrophils # Man Lymphocytes # (Manual) PT INR POC ABG pH POC ABG pCO2 POC ABG pO2 Sodium Potassium Chloride Carbon Dioxide 21 L BUN 52 H Creatinine 4.2 H Glucose 106 H POC Glucose Calcium Phosphorus TIBC 193 L Ferritin 2450.0 H AST ALT Alkaline Phosphatase Lactate Dehydrogenase 892 H Total Creatine Kinase Troponin T C-Reactive Protein Serum Total Protein Total Protein Albumin Jwype-4-Ysypaxlxp PEP Interpretation HDL Cholesterol Vitamin B12 Urine Creatinine Ur Creatinine 24 Hour Urine Total Protein Salicylates Acetaminophen 10/19/18 10/19/18 10/19/18 08:34 09:06 13:41 WBC RBC Hgb Hct MCV RDW Plt Count Lymph % (Auto) [place] % (Auto) Lymph # [place] # Seg Neutrophils % Seg Neuts % (Manual) Lymphocytes % (Manual) Monocytes % (Manual) Nucleated RBC % Seg Neutrophils # Seg Neutrophils # Man Lymphocytes # (Manual) PT INR POC ABG pH POC ABG pCO2 POC ABG pO2 Sodium Potassium Chloride Carbon Dioxide BUN Creatinine Glucose POC Glucose 141 H 156 H Calcium Phosphorus TIBC Ferritin AST ALT Alkaline Phosphatase Lactate Dehydrogenase Total Creatine Kinase Troponin T C-Reactive Protein Serum Total Protein Total Protein Albumin Tkunj-3-Nriqumtsv PEP Interpretation HDL Cholesterol Vitamin B12 1296 H Urine Creatinine Ur Creatinine 24 Hour Urine Total Protein Salicylates Acetaminophen 10/19/18 10/19/18 10/20/18 15:53 22:51 05:07 WBC RBC 3.23 L Hgb 10.0 L Hct MCV RDW 15.7 H Plt Count 111 L D Lymph % (Auto) [place] % (Auto) 8.0 H Lymph # [place] # Seg Neutrophils % Seg Neuts % (Manual) Lymphocytes % (Manual) Monocytes % (Manual) Nucleated RBC % Seg Neutrophils # Seg Neutrophils # Man Lymphocytes # (Manual) PT INR POC ABG pH POC ABG pCO2 POC ABG pO2 Sodium Potassium Chloride Carbon Dioxide BUN Creatinine Glucose POC Glucose 193 H 228 H Calcium Phosphorus TIBC Ferritin AST ALT Alkaline Phosphatase Lactate Dehydrogenase Total Creatine Kinase Troponin T C-Reactive Protein Serum Total Protein Total Protein Albumin Vpava-7-Mxoxxsqpf PEP Interpretation HDL Cholesterol Vitamin B12 Urine Creatinine Ur Creatinine 24 Hour Urine Total Protein Salicylates Acetaminophen 10/20/18 10/20/18 10/20/18 05:07 05:07 10:44 WBC RBC Hgb Hct MCV RDW Plt Count Lymph % (Auto) [place] % (Auto) Lymph # [place] # Seg Neutrophils % Seg Neuts % (Manual) Lymphocytes % (Manual) Monocytes % (Manual) Nucleated RBC % Seg Neutrophils # Seg Neutrophils # Man Lymphocytes # (Manual) PT INR POC ABG pH POC ABG pCO2 POC ABG pO2 Sodium Potassium Chloride Carbon Dioxide BUN 32 H Creatinine 3.2 H Glucose 177 H POC Glucose 160 H Calcium 8.0 L Phosphorus TIBC Ferritin AST 305 H ALT 728 H Alkaline Phosphatase 402 H Lactate Dehydrogenase Total Creatine Kinase Troponin T C-Reactive Protein Serum Total Protein 5.5 L Total Protein 6.0 L Albumin 2.9 L 2.7 L Glaph-6-Vpnvpluee 0.4 H PEP Interpretation see below H HDL Cholesterol Vitamin B12 Urine Creatinine Ur Creatinine 24 Hour Urine Total Protein Salicylates Acetaminophen 10/20/18 10/20/18 10/20/18 13:45 17:19 20:44 WBC RBC Hgb Hct MCV RDW Plt Count Lymph % (Auto) [place] % (Auto) Lymph # [place] # Seg Neutrophils % Seg Neuts % (Manual) Lymphocytes % (Manual) Monocytes % (Manual) Nucleated RBC % Seg Neutrophils # Seg Neutrophils # Man Lymphocytes # (Manual) PT INR POC ABG pH POC ABG pCO2 POC ABG pO2 Sodium Potassium Chloride Carbon Dioxide BUN Creatinine Glucose POC Glucose 143 H 234 H Calcium Phosphorus TIBC Ferritin AST ALT Alkaline Phosphatase Lactate Dehydrogenase Total Creatine Kinase Troponin T C-Reactive Protein Serum Total Protein Total Protein Albumin Hxqyc-2-Idggpetta PEP Interpretation HDL Cholesterol Vitamin B12 Urine Creatinine 157.6 H Ur Creatinine 24 Hour Urine Total Protein Salicylates Acetaminophen 10/21/18 10/21/18 10/21/18 05:57 05:57 07:55 WBC RBC 3.16 L Hgb 10.0 L Hct 29.9 L MCV RDW 15.4 H Plt Count 125 L Lymph % (Auto) [place] % (Auto) 9.6 H Lymph # [place] # Seg Neutrophils % 71.3 H Seg Neuts % (Manual) Lymphocytes % (Manual) Monocytes % (Manual) Nucleated RBC % Seg Neutrophils # Seg Neutrophils # Man Lymphocytes # (Manual) PT INR POC ABG pH POC ABG pCO2 POC ABG pO2 Sodium Potassium Chloride Carbon Dioxide BUN 47 H Creatinine 4.9 H D Glucose 229 H POC Glucose 239 H Calcium 8.0 L Phosphorus TIBC Ferritin AST ALT Alkaline Phosphatase Lactate Dehydrogenase Total Creatine Kinase Troponin T C-Reactive Protein Serum Total Protein Total Protein Albumin Hmcau-6-Cytcoajkh PEP Interpretation HDL Cholesterol Vitamin B12 Urine Creatinine Ur Creatinine 24 Hour Urine Total Protein Salicylates Acetaminophen 10/21/18 10/21/18 10/21/18 12:05 15:40 18:19 WBC RBC Hgb Hct MCV RDW Plt Count Lymph % (Auto) [place] % (Auto) Lymph # [place] # Seg Neutrophils % Seg Neuts % (Manual) Lymphocytes % (Manual) Monocytes % (Manual) Nucleated RBC % Seg Neutrophils # Seg Neutrophils # Man Lymphocytes # (Manual) PT INR POC ABG pH POC ABG pCO2 POC ABG pO2 Sodium Potassium Chloride Carbon Dioxide BUN Creatinine Glucose POC Glucose 446 H 263 H Calcium Phosphorus TIBC Ferritin AST ALT Alkaline Phosphatase Lactate Dehydrogenase Total Creatine Kinase Troponin T C-Reactive Protein Serum Total Protein Total Protein Albumin Tfzxn-8-Lsmaoazpd PEP Interpretation HDL Cholesterol Vitamin B12 Urine Creatinine 196.7 H Ur Creatinine 24 Hour 0.1 L Urine Total Protein Salicylates Acetaminophen 10/22/18 10/22/18 10/22/18 00:45 06:24 06:24 WBC RBC 3.17 L Hgb 9.9 L Hct MCV RDW 15.7 H Plt Count 134 L Lymph % (Auto) [place] % (Auto) Lymph # [place] # Seg Neutrophils % Seg Neuts % (Manual) 78.0 H Lymphocytes % (Manual) Monocytes % (Manual) Nucleated RBC % Seg Neutrophils # Seg Neutrophils # Man 8.3 H Lymphocytes # (Manual) PT INR POC ABG pH POC ABG pCO2 POC ABG pO2 Sodium Potassium Chloride Carbon Dioxide BUN 33 H Creatinine 3.9 H Glucose 171 H POC Glucose 179 H Calcium Phosphorus TIBC Ferritin AST ALT Alkaline Phosphatase Lactate Dehydrogenase Total Creatine Kinase Troponin T C-Reactive Protein Serum Total Protein Total Protein Albumin Rsgky-4-Bquhdadbj PEP Interpretation HDL Cholesterol Vitamin B12 Urine Creatinine Ur Creatinine 24 Hour Urine Total Protein Salicylates Acetaminophen 10/22/18 10/22/18 10/22/18 12:47 18:33 21:58 WBC RBC Hgb Hct MCV RDW Plt Count Lymph % (Auto) [place] % (Auto) Lymph # [place] # Seg Neutrophils % Seg Neuts % (Manual) Lymphocytes % (Manual) Monocytes % (Manual) Nucleated RBC % Seg Neutrophils # Seg Neutrophils # Man Lymphocytes # (Manual) PT INR POC ABG pH POC ABG pCO2 POC ABG pO2 Sodium Potassium Chloride Carbon Dioxide BUN Creatinine Glucose POC Glucose 210 H 176 H 230 H Calcium Phosphorus TIBC Ferritin AST ALT Alkaline Phosphatase Lactate Dehydrogenase Total Creatine Kinase Troponin T C-Reactive Protein Serum Total Protein Total Protein Albumin Jmbaj-6-Urljgeqti PEP Interpretation HDL Cholesterol Vitamin B12 Urine Creatinine Ur Creatinine 24 Hour Urine Total Protein Salicylates Acetaminophen 10/23/18 10/23/18 10/23/18 05:24 05:24 07:31 WBC RBC 3.49 L Hgb Hct MCV RDW 16.7 H Plt Count Lymph % (Auto) [place] % (Auto) Lymph # [place] # Seg Neutrophils % Seg Neuts % (Manual) 88.0 H Lymphocytes % (Manual) 6.0 L Monocytes % (Manual) Nucleated RBC % Seg Neutrophils # Seg Neutrophils # Man 9.3 H Lymphocytes # (Manual) 0.6 L PT INR POC ABG pH POC ABG pCO2 POC ABG pO2 Sodium Potassium Chloride Carbon Dioxide BUN 49 H Creatinine 5.0 H Glucose 211 H POC Glucose 137 H Calcium Phosphorus 5.30 H D TIBC Ferritin AST ALT Alkaline Phosphatase Lactate Dehydrogenase Total Creatine Kinase Troponin T C-Reactive Protein Serum Total Protein Total Protein Albumin Swlmy-7-Tdigxinjj PEP Interpretation HDL Cholesterol Vitamin B12 Urine Creatinine Ur Creatinine 24 Hour Urine Total Protein Salicylates Acetaminophen 10/23/18 10/23/18 10/23/18 11:50 11:51 14:59 WBC RBC Hgb Hct MCV RDW Plt Count Lymph % (Auto) [place] % (Auto) Lymph # [place] # Seg Neutrophils % Seg Neuts % (Manual) Lymphocytes % (Manual) Monocytes % (Manual) Nucleated RBC % Seg Neutrophils # Seg Neutrophils # Man Lymphocytes # (Manual) PT INR POC ABG pH 7.346 L POC ABG pCO2 POC ABG pO2 116 H Sodium Potassium Chloride Carbon Dioxide BUN Creatinine Glucose POC Glucose 232 H Calcium Phosphorus TIBC Ferritin AST ALT Alkaline Phosphatase Lactate Dehydrogenase Total Creatine Kinase Troponin T C-Reactive Protein 24.10 H Serum Total Protein Total Protein Albumin Zmjkx-0-Wqadyswqs PEP Interpretation HDL Cholesterol Vitamin B12 Urine Creatinine Ur Creatinine 24 Hour Urine Total Protein Salicylates Acetaminophen 10/23/18 10/23/18 10/23/18 18:29 20:51 23:37 WBC RBC Hgb Hct MCV RDW Plt Count Lymph % (Auto) [place] % (Auto) Lymph # [place] # Seg Neutrophils % Seg Neuts % (Manual) Lymphocytes % (Manual) Monocytes % (Manual) Nucleated RBC % Seg Neutrophils # Seg Neutrophils # Man Lymphocytes # (Manual) PT INR POC ABG pH POC ABG pCO2 34.3 L POC ABG pO2 Sodium Potassium Chloride Carbon Dioxide BUN Creatinine Glucose POC Glucose 182 H 232 H Calcium Phosphorus TIBC Ferritin AST ALT Alkaline Phosphatase Lactate Dehydrogenase Total Creatine Kinase Troponin T C-Reactive Protein Serum Total Protein Total Protein Albumin Ggfud-7-Yrzyqztid PEP Interpretation HDL Cholesterol Vitamin B12 Urine Creatinine Ur Creatinine 24 Hour Urine Total Protein Salicylates Acetaminophen 10/24/18 10/24/18 10/24/18 04:50 04:50 07:44 WBC RBC 3.13 L Hgb 9.7 L Hct MCV RDW 16.8 H Plt Count 132 L Lymph % (Auto) [place] % (Auto) Lymph # [place] # Seg Neutrophils % Seg Neuts % (Manual) 79.0 H Lymphocytes % (Manual) 11.0 L Monocytes % (Manual) Nucleated RBC % Seg Neutrophils # Seg Neutrophils # Man 8.7 H Lymphocytes # (Manual) PT INR POC ABG pH POC ABG pCO2 POC ABG pO2 Sodium 136 L Potassium Chloride 94.6 L Carbon Dioxide BUN 25 H Creatinine 3.3 H Glucose 214 H POC Glucose 219 H Calcium Phosphorus TIBC Ferritin AST ALT Alkaline Phosphatase Lactate Dehydrogenase Total Creatine Kinase Troponin T C-Reactive Protein Serum Total Protein Total Protein Albumin Odxdn-6-Lnejmedbh PEP Interpretation HDL Cholesterol Vitamin B12 Urine Creatinine Ur Creatinine 24 Hour Urine Total Protein Salicylates Acetaminophen 10/24/18 10/24/18 10/24/18 11:52 18:25 21:12 WBC RBC Hgb Hct MCV RDW Plt Count Lymph % (Auto) [place] % (Auto) Lymph # [place] # Seg Neutrophils % Seg Neuts % (Manual) Lymphocytes % (Manual) Monocytes % (Manual) Nucleated RBC % Seg Neutrophils # Seg Neutrophils # Man Lymphocytes # (Manual) PT INR POC ABG pH POC ABG pCO2 POC ABG pO2 Sodium Potassium Chloride Carbon Dioxide BUN Creatinine Glucose POC Glucose 290 H 113 H 123 H Calcium Phosphorus TIBC Ferritin AST ALT Alkaline Phosphatase Lactate Dehydrogenase Total Creatine Kinase Troponin T C-Reactive Protein Serum Total Protein Total Protein Albumin Qtmwj-3-Yscdrlnqi PEP Interpretation HDL Cholesterol Vitamin B12 Urine Creatinine Ur Creatinine 24 Hour Urine Total Protein Salicylates Acetaminophen 10/25/18 10/25/18 10/25/18 06:29 11:31 12:28 WBC RBC Hgb Hct MCV RDW Plt Count Lymph % (Auto) [place] % (Auto) Lymph # [place] # Seg Neutrophils % Seg Neuts % (Manual) Lymphocytes % (Manual) Monocytes % (Manual) Nucleated RBC % Seg Neutrophils # Seg Neutrophils # Man Lymphocytes # (Manual) PT INR POC ABG pH POC ABG pCO2 POC ABG pO2 Sodium Potassium Chloride 94.1 L Carbon Dioxide BUN 42 H Creatinine 4.8 H Glucose 192 H POC Glucose 208 H 225 H Calcium Phosphorus TIBC Ferritin AST ALT Alkaline Phosphatase Lactate Dehydrogenase Total Creatine Kinase Troponin T C-Reactive Protein Serum Total Protein Total Protein Albumin Ezzvd-8-Gnkclbnni PEP Interpretation HDL Cholesterol Vitamin B12 Urine Creatinine Ur Creatinine 24 Hour Urine Total Protein Salicylates Acetaminophen 10/25/18 10/25/18 10/26/18 16:16 23:38 05:49 WBC RBC Hgb Hct MCV RDW Plt Count Lymph % (Auto) [place] % (Auto) Lymph # [place] # Seg Neutrophils % Seg Neuts % (Manual) Lymphocytes % (Manual) Monocytes % (Manual) Nucleated RBC % Seg Neutrophils # Seg Neutrophils # Man Lymphocytes # (Manual) PT INR POC ABG pH POC ABG pCO2 POC ABG pO2 Sodium Potassium Chloride Carbon Dioxide BUN Creatinine Glucose POC Glucose 228 H 312 H 246 H Calcium Phosphorus TIBC Ferritin AST ALT Alkaline Phosphatase Lactate Dehydrogenase Total Creatine Kinase Troponin T C-Reactive Protein Serum Total Protein Total Protein Albumin Qfhpy-0-Gmrnpxdjw PEP Interpretation HDL Cholesterol Vitamin B12 Urine Creatinine Ur Creatinine 24 Hour Urine Total Protein Salicylates Acetaminophen 10/26/18 10/26/18 10/26/18 06:13 06:13 09:17 WBC 12.3 H RBC 3.35 L Hgb Hct MCV RDW 16.4 H Plt Count Lymph % (Auto) 8.4 L [place] % (Auto) 10.7 H Lymph # 1.0 L [place] # 1.3 H Seg Neutrophils % 80.4 H Seg Neuts % (Manual) Lymphocytes % (Manual) Monocytes % (Manual) Nucleated RBC % Seg Neutrophils # 9.9 H Seg Neutrophils # Man Lymphocytes # (Manual) PT INR POC ABG pH POC ABG pCO2 POC ABG pO2 Sodium 136 L Potassium Chloride 91.7 L Carbon Dioxide BUN 54 H Creatinine 6.0 H Glucose 247 H POC Glucose 252 H Calcium Phosphorus TIBC Ferritin AST ALT Alkaline Phosphatase 251 H Lactate Dehydrogenase 458 H Total Creatine Kinase Troponin T C-Reactive Protein Serum Total Protein Total Protein 5.9 L Albumin 3.0 L Vehxi-6-Facxsisyj PEP Interpretation HDL Cholesterol Vitamin B12 Urine Creatinine Ur Creatinine 24 Hour Urine Total Protein Salicylates Acetaminophen 10/26/18 10/27/18 10/27/18 15:31 00:37 06:20 WBC RBC Hgb Hct MCV RDW Plt Count Lymph % (Auto) [place] % (Auto) Lymph # [place] # Seg Neutrophils % Seg Neuts % (Manual) Lymphocytes % (Manual) Monocytes % (Manual) Nucleated RBC % Seg Neutrophils # Seg Neutrophils # Man Lymphocytes # (Manual) PT INR POC ABG pH POC ABG pCO2 POC ABG pO2 Sodium Potassium Chloride Carbon Dioxide BUN Creatinine Glucose POC Glucose 265 H 308 H 368 H Calcium Phosphorus TIBC Ferritin AST ALT Alkaline Phosphatase Lactate Dehydrogenase Total Creatine Kinase Troponin T C-Reactive Protein Serum Total Protein Total Protein Albumin Ymelf-3-Nodormxkg PEP Interpretation HDL Cholesterol Vitamin B12 Urine Creatinine Ur Creatinine 24 Hour Urine Total Protein Salicylates Acetaminophen 10/27/18 10/27/18 10/27/18 11:19 16:40 22:48 WBC RBC Hgb Hct MCV RDW Plt Count Lymph % (Auto) [place] % (Auto) Lymph # [place] # Seg Neutrophils % Seg Neuts % (Manual) Lymphocytes % (Manual) Monocytes % (Manual) Nucleated RBC % Seg Neutrophils # Seg Neutrophils # Man Lymphocytes # (Manual) PT INR POC ABG pH POC ABG pCO2 POC ABG pO2 Sodium Potassium Chloride Carbon Dioxide BUN Creatinine Glucose POC Glucose 331 H 348 H 345 H Calcium Phosphorus TIBC Ferritin AST ALT Alkaline Phosphatase Lactate Dehydrogenase Total Creatine Kinase Troponin T C-Reactive Protein Serum Total Protein Total Protein Albumin Pbpkm-1-Lnffakkfq PEP Interpretation HDL Cholesterol Vitamin B12 Urine Creatinine Ur Creatinine 24 Hour Urine Total Protein Salicylates Acetaminophen 10/28/18 10/28/18 10/28/18 05:52 05:58 05:58 WBC 12.5 H RBC 2.82 L Hgb 8.7 L Hct 26.7 L MCV RDW 16.2 H Plt Count Lymph % (Auto) [place] % (Auto) Lymph # [place] # Seg Neutrophils % Seg Neuts % (Manual) Lymphocytes % (Manual) Monocytes % (Manual) Nucleated RBC % Seg Neutrophils # Seg Neutrophils # Man Lymphocytes # (Manual) PT INR POC ABG pH POC ABG pCO2 POC ABG pO2 Sodium Potassium Chloride 93.7 L Carbon Dioxide BUN 55 H Creatinine 5.3 H Glucose 286 H POC Glucose 280 H Calcium 8.3 L Phosphorus TIBC Ferritin AST ALT Alkaline Phosphatase Lactate Dehydrogenase Total Creatine Kinase Troponin T C-Reactive Protein Serum Total Protein Total Protein Albumin Bphdg-1-Jmadkqpnn PEP Interpretation HDL Cholesterol Vitamin B12 Urine Creatinine Ur Creatinine 24 Hour Urine Total Protein Salicylates Acetaminophen 10/28/18 10/29/18 10/29/18 18:09 00:56 12:56 WBC 12.5 H RBC 2.82 L Hgb 8.6 L Hct 26.5 L MCV RDW 16.2 H Plt Count Lymph % (Auto) 7.1 L [place] % (Auto) 9.7 H Lymph # 0.9 L [place] # 1.2 H Seg Neutrophils % 81.8 H Seg Neuts % (Manual) Lymphocytes % (Manual) Monocytes % (Manual) Nucleated RBC % Seg Neutrophils # 10.2 H Seg Neutrophils # Man Lymphocytes # (Manual) PT INR POC ABG pH POC ABG pCO2 POC ABG pO2 Sodium Potassium Chloride Carbon Dioxide BUN Creatinine Glucose POC Glucose 289 H 172 H Calcium Phosphorus TIBC Ferritin AST ALT Alkaline Phosphatase Lactate Dehydrogenase Total Creatine Kinase Troponin T C-Reactive Protein Serum Total Protein Total Protein Albumin Exttf-0-[id number] PEP Interpretation HDL Cholesterol Vitamin B12 Urine Creatinine Ur Creatinine 24 Hour Urine Total Protein Salicylates Acetaminophen 10/29/18 10/29/18 10/30/18 13:25 17:58 00:18 WBC RBC Hgb Hct MCV RDW Plt Count Lymph % (Auto) [place] % (Auto) Lymph # [place] # Seg Neutrophils % Seg Neuts % (Manual) Lymphocytes % (Manual) Monocytes % (Manual) Nucleated RBC % Seg Neutrophils # Seg Neutrophils # Man Lymphocytes # (Manual) PT INR POC ABG pH POC ABG pCO2 POC ABG pO2 Sodium 134 L Potassium Chloride 90.8 L Carbon Dioxide BUN 75 H Creatinine 6.5 H Glucose 251 H POC Glucose 227 H 279 H Calcium Phosphorus TIBC Ferritin AST ALT Alkaline Phosphatase Lactate Dehydrogenase Total Creatine Kinase Troponin T C-Reactive Protein Serum Total Protein Total Protein Albumin [id number] PEP Interpretation HDL Cholesterol Vitamin B12 Urine Creatinine Ur Creatinine 24 Hour Urine Total Protein Salicylates Acetaminophen 10/30/18 10/30/18 05:30 13:01 WBC RBC Hgb Hct MCV RDW Plt Count Lymph % (Auto) [place] % (Auto) Lymph # [place] # Seg Neutrophils % Seg Neuts % (Manual) Lymphocytes % (Manual) Monocytes % (Manual) Nucleated RBC % Seg Neutrophils # Seg Neutrophils # Man Lymphocytes # (Manual) PT INR POC ABG pH POC ABG pCO2 POC ABG pO2 Sodium Potassium Chloride Carbon Dioxide BUN Creatinine Glucose POC Glucose 230 H 315 H Calcium Phosphorus TIBC Ferritin AST ALT Alkaline Phosphatase Lactate Dehydrogenase Total Creatine Kinase Troponin T C-Reactive Protein Serum Total Protein Total Protein Albumin [id number] PEP Interpretation HDL Cholesterol Vitamin B12 Urine Creatinine Ur Creatinine 24 Hour Urine Total Protein Salicylates Acetaminophen Allied health notes reviewed: nursing
[2018-10-30] MEDS ORDERED: LANTUS SUB-Q SCH (15:00)
--- NOTE | 2018-10-30 17:04 | Progress Note ---
Assessment and Plan Assessment and plan: Patient is a 63 yo woman with hypertension, dm type 2, gerd, cva, dementia, cad s/p cabg, seizure disorder, OA and CKD 4 (last Cr here was 2.2 on 01/08/2017) who presented to [facility] ED with AMS x 3 days. She was admitted for severe renal failure/uremic encephalopathy with hyperkalemia. Creatinine was found to be 5.6. She underwent emergent Hemodialysis * CT head without contrast IMPRESSION: 1. Recent infarcts in the left MCA and left FACTORY ASSEMBLER territories. Although there is no volume loss associated with FACTORY ASSEMBLER infarct, the hypoattenuation of the parenchyma and loss of laboy-white differentiation is more conspicuous, suggesting this may be an older infarct. 2. No acute hemorrhage. Report of these findings was called to Dr. Novak in the emergency department at the time of dictation. * pCXR Impression: Increasing right basilar effusion/volume loss * 10/21/2017 [place] Conclusions: Left ventricular chamber size is severely dilated, global left ventricular systolic function is severely decreased, estimated EF is 10-15%, RVSF is severely reduced, No ASD, no endocarditis or cardioembolic source * MRI brain without contrast BRAIN / INTRACRANIAL CONTENTS: Multiple ischemic areas seen - the larger areas were seen on recent CT. Branch MCA infarct seen in the middle and inferior frontal gyral region on the left. Branch FACTORY ASSEMBLER infarct seen on the left, including calcarine cortex. Small focus of ischemia seen in the left precuneus. There are small foci of ischemia seen in the superior frontal gyrus and paracentral lobule regions on the right, superiorly. Minimal involvement of the genu/rostrum of the corpus callosum is suggested. Punctate involvement seen in the right parietal temporal region. Other, scattered, punctate areas of ischemia may be present as well. Because of these findings, embolic phenomena should be considered. Otherwise, no acute hemorrhage, mass effect, midline shift, hydrocephalus, or acute, large territorial infarct. No chronic infarct or atrophy. Lacunar infarcts suggested in the thalamic regions. There are moderate areas of increased signal intensity on FLAIR imaging in the white matter of the cerebral hemispheres, as well as the gangliocapsular regions. These are nonspecific findings and may be related to microangiopathy (hypertension, diabetes, atherosclerosis), given the patient's age. CRANIOCERVICAL JUNCTION: No significant abnormality. VASCULAR FLOW-VOIDS: No significant abnormality. ORBITS: No significant abnormality of visualized orbits. SINUSES / MASTOIDS: There is mild mucosal thickening with the ethmoids. ADDITIONAL FINDINGS: None. IMPRESSION: 1. Multiple areas of ischemia as described above, worrisome for embolic phenomenon. No evidence of hemorrhagic transformation at this time. * 10/27/2018 CT brain without Impression: IMPRESSION: No acute intracranial proce ss. Evolving ischemic infarcts in the left frontal lobe and left occipital lobe as described. * US chest Impression: Small bilateral pleural effusions AMS most likely due to Acute Embolic Ischemic Strokes/CVA: supportive care, poor prognosis Hypotension: give another bolus and move to ICU restart IV levophed drip. Acute metabolic encephalopathy, poa:work up in process ARF/CKD 4 vasomotor +ATN: hemodialysis started Hyperkalemia: treated with HD, Teller following, monitor bmp closely Glaucoma: continue latanoprost eyedrops Vitamin D deficiency: Continue vitamin D Hyperlipidemia: Continue statins Peripheral neuropathy: Continue gabapentin Seizure disorder: Continue Keppra Hypertension: Continue antihypertensives DVT prophylaxis: heparin and GI prophylaxis , now DNR Disposition: continue inpatient care, was going to SNF but spiked a temp of 101 F on 10/26/18 at 0438 am, this is her second temperature spike, first temp was 10/24/18 @ 0800am of 100.8F. repeat Blood cultures pending, pCXR Impression: Increasing right basilar effusion/volume loss, UA not done because she doesn't make enough urine, She still has thomas and NGT in place. 10/27/18: Consulted ID because patient does have a line and spiking fevers 10/28/18: Unable to do HD due to AMS and patient is Hypotensive, really did not respond to 500 ml ns ivf resuscitative bolus. Will transfer back to ICU. Still with low grade temp of 100.2 F then later 100.3 F I called sister Danay [phone], discussed Hospice, but her main concern is stopping Hemodialysis in Hospice care. She received another bolus of 500 ml 10/29/18: Still hypotensive, left hand peripheral IV; therefore, will need central line for vasopressor, bp too low for Hemodialysis on MWF schedule. 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 poor prognosis CCT 31 minutes History Interval history: Patient was seen and examined. Follow-up on current diagnosis of CVA. No overnight events reported to me. Patient is nonverbal. Imaging, nursing note, chart, labs and old chart reviewed. Hospitalist Physical - Physical exam Narrative exam: Gen: ill appearing, chronically disable appearing, eyes open, chronically non- verbal HEENT: NCAT, EOMI, PERRL, OP Clear Neck: supple, no adenopathy, no thyromegaly, no JVD CVS/Heart: RRR, normal S1S2, pulses present bilaterally Chest/Lungs: CTA B, Symmetrical chest expansion, good air entry bilaterally GI/Abdomen: soft, NTND, good bowel sounds, no guarding or rebound /Bladder: no suprapubic tenderness, no CVA or paraspinal tenderness Extermity/Skin: diffuse hyperpigmented coin lichenification lesion MSK: not following commands Neuro: not following commands Psych: lethargic - Constitutional Vitals: Temp Pulse Resp BP Pulse Ox 97.9 F 86 19 125/75 100 10/30/18 15:59 10/30/18 16:45 10/30/18 16:00 10/30/18 16:45 10/30/18 16:00 General appearance: Present: no acute distress Results - Labs CBC & Chem 7: 10/29/18 00:56 10/29/18 13:25 Labs: Laboratory Last Values WBC 12.5 K/mm3 (4.5-11.0) H 10/29/18 00:56 RBC 2.82 M/mm3 (3.65-5.03) L 10/29/18 00:56 Hgb 8.6 gm/dl (10.1-14.3) L 10/29/18 00:56 Hct 26.5 % (30.3-42.9) L 10/29/18 00:56 MCV 94 fl (79-97) 10/29/18 00:56 MCH 31 pg (28-32) 10/29/18 00:56 MCHC 33 % (30-34) 10/29/18 00:56 RDW 16.2 % (13.2-15.2) H 10/29/18 00:56 Plt Count 256 K/mm3 (140-440) 10/29/18 00:56 Lymph % (Auto) 7.1 % (13.4-35.0) L 10/29/18 00:56 [place] % (Auto) 9.7 % (0.0-7.3) H 10/29/18 00:56 Eos % (Auto) 0.8 % (0.0-4.3) 10/29/18 00:56 Baso % (Auto) 0.6 % (0.0-1.8) 10/29/18 00:56 Lymph # 0.9 K/mm3 (1.2-5.4) L 10/29/18 00:56 [place] # 1.2 K/mm3 (0.0-0.8) H 10/29/18 00:56 Eos # 0.1 K/mm3 (0.0-0.4) 10/29/18 00:56 Baso # 0.1 K/mm3 (0.0-0.1) 10/29/18 00:56 Add Manual Diff Complete 10/24/18 04:50 Total Counted 100 10/24/18 04:50 Seg Neutrophils % 81.8 % (40.0-70.0) H 10/29/18 00:56 Seg Neuts % (Manual) 79.0 % (40.0-70.0) H 10/24/18 04:50 4.0 % 10/24/18 04:50 11.0 % (13.4-35.0) L 10/24/18 04:50 Reactive Lymphs % (Man) 0 % 10/24/18 04:50 6.0 % (0.0-7.3) 10/24/18 04:50 0 % (0.0-4.3) 10/24/18 04:50 0 % (0.0-1.8) 10/24/18 04:50 0 % 10/24/18 04:50 0 % 10/24/18 04:50 0 % 10/24/18 04:50 0 % 10/24/18 04:50 Nucleated RBC % Not Reportable 10/24/18 04:50 Seg Neutrophils # 10.2 K/mm3 (1.8-7.7) H 10/29/18 00:56 Seg Neutrophils # Man 8.7 K/mm3 (1.8-7.7) H 10/24/18 04:50 Band Neutrophils # 0.4 K/mm3 10/24/18 04:50 1.2 K/mm3 (1.2-5.4) 10/24/18 04:50 Abs React Lymphs (Man) 0.0 K/mm3 10/24/18 04:50 0.7 K/mm3 (0.0-0.8) 10/24/18 04:50 0.0 K/mm3 (0.0-0.4) 10/24/18 04:50 0.0 K/mm3 (0.0-0.1) 10/24/18 04:50 0.0 K/mm3 10/24/18 04:50 0.0 K/mm3 10/24/18 04:50 0.0 K/mm3 10/24/18 04:50 Blast Cells # 0.0 K/mm3 10/24/18 04:50 Pathologist Review 10/24/18 04:50 WBC Morphology Not Reportable 10/23/18 05:24 Hypersegmented Neuts Not Reportable 10/24/18 04:50 Hyposegmented Neuts Not Reportable 10/24/18 04:50 Hypogranular Neuts Not Reportable 10/24/18 04:50 Few 10/24/18 04:50 Not Reportable 10/24/18 04:50 Not Reportable 10/24/18 04:50 Not Reportable 10/24/18 04:50 Not Reportable 10/24/18 04:50 Not Reportable 10/24/18 04:50 Consistent w auto 10/24/18 04:50 Not Reportable 10/24/18 04:50 Plt Clumps, EDTA Not Reportable 10/24/18 04:50 Not Reportable 10/24/18 04:50 Not Reportable 10/24/18 04:50 Not Reportable 10/24/18 04:50 Plt Morphology Comment Not Reportable 10/24/18 04:50 RBC Morphology Not Reportable 10/24/18 04:50 Dimorphic RBCs Not Reportable 10/24/18 04:50 Not Reportable 10/24/18 04:50 Few 10/24/18 04:50 Not Reportable 10/24/18 04:50 1+ 10/24/18 04:50 Not Reportable 10/24/18 04:50 1+ 10/24/18 04:50 Not Reportable 10/24/18 04:50 Not Reportable 10/24/18 04:50 Not Reportable 10/24/18 04:50 Rare 10/24/18 04:50 Not Reportable 10/24/18 04:50 Few 10/24/18 04:50 Not Reportable 10/24/18 04:50 Not Reportable 10/24/18 04:50 Not Reportable 10/24/18 04:50 3+ 10/24/18 04:50 Not Reportable 10/24/18 04:50 Not Reportable 10/24/18 04:50 Not Reportable 10/24/18 04:50 Acanthocytes (Spur) Not Reportable 10/24/18 04:50 Rouleaux Not Reportable 10/24/18 04:50 Not Reportable 10/24/18 04:50 Not Reportable 10/24/18 04:50 Not Reportable 10/24/18 04:50 Not Reportable 10/24/18 04:50 Hem Pathologist Commnt Sent to pathology 10/24/18 04:50 PT 20.6 Sec. (12.2-14.9) H 10/17/18 10:19 INR 1.81 (0.87-1.13) H 10/17/18 10:19 APTT 35.6 Sec. (24.2-36.6) 10/17/18 10:19 18.7 Sec. (15.1-19.6) 10/17/18 10:19 Heparin Anti-Xa, Unfract Negative (Negative) 10/19/18 08:34 POC ABG pH 7.436 (7.35-7.45) 10/23/18 20:51 POC ABG pCO2 34.3 (35-45) L 10/23/18 20:51 POC ABG pO2 95 (80-105) 10/23/18 20:51 POC ABG HCO3 23.1 (22-26 mml/L) 10/23/18 20:51 POC ABG Total CO2 24 (23-27mmol/L) 10/23/18 20:51 POC ABG O2 Sat 98 10/23/18 20:51 POC ABG Base Excess -1 ((-2) - (+3)mmol/L) 10/23/18 20:51 24 % 10/23/18 20:51 Sodium 134 mmol/L (137-145) L 10/29/18 13:25 Potassium 4.1 mmol/L (3.6-5.0) 10/29/18 13:25 Chloride 90.8 mmol/L (98-107) L 10/29/18 13:25 Carbon Dioxide 27 mmol/L (22-30) 10/29/18 13:25 20 mmol/L 10/29/18 13:25 BUN 75 mg/dL (7-17) H 10/29/18 13:25 6.5 mg/dL (0.7-1.2) H 10/29/18 13:25 Estimated GFR 8 ml/min 10/29/18 13:25 12 % 10/29/18 13:25 Glucose 251 mg/dL (65-100) H 10/29/18 13:25 POC Glucose 315 (70-105) H 10/30/18 13:01 Lactic Acid 1.30 mmol/L (0.7-2.0) 10/23/18 14:59 Calcium 8.6 mg/dL (8.4-10.2) 10/29/18 13:25 Phosphorus 5.30 mg/dL (2.5-4.5) H D 10/23/18 05:24 Magnesium 1.90 mg/dL (1.7-2.3) 10/28/18 05:58 Iron 55 ug/dL (37-170) 10/19/18 08:34 TIBC 193 mcg/dL (250-450) L 10/19/18 08:34 2450.0 ng/mL (13.0-400.0) H 10/19/18 08:34 0.50 mg/dL (0.1-1.2) 10/26/18 06:13 AST 36 units/L (5-40) 10/26/18 06:13 ALT 18 units/L (7-56) 10/26/18 06:13 251 units/L (35-129) H 10/26/18 06:13 28.0 umol/L (25-60) 10/26/18 19:36 458 units/L (91-180) H 10/26/18 06:13 3216 units/L (30-135) H 10/17/18 15:15 4.720 ng/mL (0.00-0.029) H* 10/17/18 Unknown 24.10 mg/dL (0.00-1.30) H 10/23/18 14:59 5.5 g/dL (6.1-8.1) L 10/20/18 05:07 5.9 g/dL (6.3-8.2) L 10/26/18 06:13 3.0 g/dL (3.9-5) L 10/26/18 06:13 1.0 % 10/26/18 06:13 0.4 g/dL (0.2-0.3) H 10/20/18 05:07 0.9 g/dL (0.5-0.9) 10/20/18 05:07 0.3 g/dL (0.2-0.5) 10/20/18 05:07 0.8 g/dL (0.8-1.7) 10/20/18 05:07 Abnorm Protein Band 1 see below 10/20/18 05:07 PEP Interpretation see below H 10/20/18 05:07 Triglycerides 102 mg/dL (2-149) 10/17/18 Unknown Cholesterol 198 mg/dL (50-199) 10/17/18 Unknown 116 mg/dL (50-130) 10/17/18 Unknown 88 mg/dL (40-59) H 10/17/18 Unknown 2.25 % 10/17/18 Unknown See scanned result 10/19/18 08:34 Vitamin B12 1296 pg/mL (211-911) H 10/19/18 08:34 8.42 ng/mL (7.3-26.0) 10/19/18 08:34 TSH 1.030 mlU/mL (0.270-4.200) 10/17/18 Unknown Free T4 1.26 ng/dL (0.76-1.46) 10/17/18 Unknown Yellow (Yellow) 10/17/18 11:25 Slightly-cloudy (Clear) 10/17/18 11:25 5.0 (5.0-7.0) 10/17/18 11:25 Ur Specific [place] 1.019 (1.003-1.030) 10/17/18 11:25 100 mg/dl mg/dL (Negative) 10/17/18 11:25 150 mg/dL (Negative) 10/17/18 11:25 Tr mg/dL (Negative) 10/17/18 11:25 Sm (Negative) 10/17/18 11:25 Neg (Negative) 10/17/18 11:25 Neg (Negative) 10/17/18 11:25 < 2.0 mg/dL (<2.0) 10/17/18 11:25 Ur Leukocyte Esterase Tr (Negative) 10/17/18 11:25 3.0 /HPF (0.0-6.0) 10/17/18 11:25 2.0 /HPF (0.0-6.0) 10/17/18 11:25 Few /HPF 10/17/18 11:25 None seen (None Seen) 10/17/18 13:16 60 ml 10/21/18 18:19 196.7 mg/dL (0.1-20.0) H 10/21/18 18:19 Ur Creatinine 24 Hour 0.1 (0.8-2.8) L 10/21/18 18:19 Height (in) 62.0 inches 10/20/18 13:45 Weight (lb) 126.5 lbs 10/20/18 13:45 3 10/20/18 13:45 Protein/Creatinin Ratio 0.69 10/17/18 13:16 12 mmol/L 10/17/18 13:34 191 mg/dL (5-11.8) H 10/17/18 13:16 Salicylates < 0.3 mg/dL (2.8-20.0) L 10/17/18 Unknown Acetaminophen < 5.0 ug/mL (10.0-30.0) L 10/17/18 Unknown Plasma/Serum Alcohol < 0.01 % (0-0.07) 10/17/18 Unknown Immunofix Electrophor see below 10/20/18 05:07 Heparin-induced Plt Ab Negative (Negative) 10/19/18 08:34 UF Heparin High Dose 0 % Release 10/19/18 08:34 KAILYN UFH Low Dose 0.1 0 % Release 10/19/18 08:34 KAILYN UFH Low Dose 0.5 0 % Release 10/19/18 08:34 Hepatitis A IgM Ab Non-reactive (NonReactive) 10/17/18 15:15 Hep Bs Antigen Non-reactive (Negative) 10/17/18 15:15 Hep B Core IgM Ab Non-reactive (NonReactive) 10/17/18 15:15 Non-reactive (NonReactive) 10/17/18 15:15 Rare 10/17/18 15:43 Flexitest 1 10/20/18 10:53 Active Medications - Current Medications Current Medications: Generic Name Dose Route Start Last Admin Trade Name Freq PRN Reason Stop Dose Admin Acetaminophen 650 mg 10/29/18 15:49 10/29/18 16:46 Tylenol FEEDTUBE 650 mg Q6H PRN Administration Pain, Mild (1-3) Lipase/Protease/Amylase 1 each 10/25/18 09:18 10/28/18 09:[address] 10,500 Unit FEEDTUBE 1 each PRN PRN Administration For Clogged Feeding Tube Clopidogrel Bisulfate 75 mg 10/21/18 11:00 10/30/18 09:03 Plavix PO 75 mg QDAY ALLEY Administration Ergocalciferol 50,000 unit 10/24/18 10:00 10/24/18 10:42 Vitamin D2 PO 50,000 unit Sa ALLEY Administration Famotidine 20 mg 10/21/18 10:00 10/30/18 09:04 Pepcid PO 20 mg DAILY ALLEY Administration Gabapentin 300 mg 10/17/18 22:00 10/29/18 21:30 Neurontin PO 300 mg QHS ALLEY Administration Heparin Sodium (Porcine) 5,000 unit 10/29/18 11:30 10/30/18 09:02 Heparin SUB-Q 5,000 unit Q12HR ALLEY Administration Norepinephrine 8 mg/ Sodium 250 mls @ 3.75 mls/hr 10/28/18 18:00 Chloride IV TITR ALLEY Protocol 2 MCG/MIN Dobutamine HCl/Dextrose 500 mg in 250 mls @ 3.366 mls/hr 10/29/18 11:00 10/29/18 13:28 Dobutrex Drip 500mg/D5w 250ml IV 2 mcg/kg/min TITR ALLEY 3.366 mls/hr Administration Protocol 2 MCG/KG/MIN Phenylephrine HCl 100 mg/ 100 mls @ 6 mls/hr 10/29/18 10:30 10/30/18 16:34 Sodium Chloride IV 100 mcg/min TITR AL[place] 6 mls/hr Administration Protocol 100 MCG/MIN Cefepime HCl 0.5 gm/ Sodium 100 mls @ 200 mls/hr 10/29/18 14:00 10/30/18 13:27 Chloride IV 10/31/18 23:59 200 mls/hr Q24H ALLEY Administration Protocol Sodium Chloride 100 mls @ 999 mls/hr 10/30/18 12:00 Nacl 0.9% IV LESLIE PRN Hypotension Insulin Glargine 5 units 10/31/18 22:00 Lantus SUB-Q QHS ALLEY Insulin Human Lispro 0 unit 10/24/18 12:00 10/30/18 13:23 Humalog SUB-Q 6 unit Q6HR ALLEY Administration Protocol Latanoprost 1 drops 10/17/18 18:00 10/29/18 18:26 Latanoprost 0.005% OU Not Given QPM ALLEY Levetiracetam 500 mg 10/21/18 10:00 10/30/18 09:03 Keppra PO 500 mg BID ALLEY Administration Simple Syrup 15 ml 10/25/18 09:18 Simple Syrup FEEDTUBE PRN PRN Hypoglycemia Simple Syrup 30 ml 10/25/18 09:18 Simple Syrup FEEDTUBE PRN PRN Hypoglycemia Sodium Bicarbonate 325 mg 10/17/18 17:00 10/30/18 09:04 Sodium Bicarbonate PO 325 mg DAILY ALLEY Administration Sodium Bicarbonate 325 mg 10/25/18 09:18 Sodium Bicarbonate FEEDTUBE PRN PRN For Clogged Feeding Tube Nutrition/Malnutrition Assess - Dietary Evaluation Nutrition/Malnutrition Findings: Nutrition Notes Start: 10/18/18 14:28 Freq: Status: Active Protocol: Document 10/29/18 14:05 RM (Rec: 10/29/18 14:12 [id number]) Nutrition Notes Initial or Follow up Reassessment Current Diagnosis Acute Kidney Injury,CKD(stage I-IV),Coronary Artery Disease, Diabetes,Hypertension,Heart Failure,Stroke,Hyperlipidemia Other Pertinent Diagnosis Dementia Current Diet Nepro at 30 ml/hr Labs/Tests Na 134 K 3.9 Cr 6.5 Pertinent Medications Reviewed Height 5 ft 2 in Weight 56.1 kg [place] Body Weight (kg) 50.00 BMI 22.6 Subjective/Other Information Procedure being done in room at time of visit. Per nurse Nepro is infusing at 15 ml/hr and she plans to advance it to goal rate. Percent of energy/protein needs met: 48%/50% Burn Absent Trauma Absent #2 Nutrition Diagnosis Malnutrition Diagnosis Progress(for reassessment Continues documentation) #1 Nutrition Diagnosis Inadequate oral intake Diagnosis Progress(for reassessment Continues documentation) Is patient on ventilator? No Is Patient Ambulatory and/or Out of Bed No REE-(Granite-St. Jeor-confined to bed) 1288.476 Kcal/Kg value to use for calculation 24 Approximate Energy Requirements Using 1346 kcal/Kg Calculation Used for Recommendations Granite-St Jeor Additional Notes Protein Needs: 69-86g(1.2-1.5g /kg) Fluid Needs: 1 ml/kcal Nutrition Intervention Nutrition Support: Nepro at 30ml/hr Flush with 120ml q4h Kcal 1,296 Protein (gm) 58 Fluid (mL) 523 Goal #1 TF tolerance Goal #2 Meet at least 80% of kcal and protein needs via TF Anticipated Discharge Needs: Unable to determine at this time Follow-Up By: 11/02/18 Additional Comments Follow for TF tolerance
[2018-10-30] MEDS: LATANOPROST 0.005% OU SCH (18:11)
[2018-10-30] MEDS: NEURONTIN PO SCH (21:27)
[2018-10-31] MEDS: HumaLOG SUB-Q SCH ×3 (05:56→18:32)
[2018-10-31] MEDS: SODIUM BICARBONATE PO SCH (10:31)
[2018-10-31] MEDS: KEPPRA PO SCH ×2 (10:31→21:33)
[2018-10-31] MEDS: PEPCID PO SCH (10:31)
[2018-10-31] MEDS: PLAVIX PO SCH (10:31)
[2018-10-31] MEDS: HEPARIN SUB-Q SCH ×2 (10:31→21:32)
[2018-10-31] MEDS: VITAMIN D2 PO SCH (10:31)
--- NOTE | 2018-10-31 11:22 | Progress Note ---
Assessment and Plan Acute on chronic encephalopathy. Hypotension (? Cardiogenic Shock component) End-stage renal disease, on dialysis. Acute hypoxemic respiratory failure. History of hypertension. Acute on chronic cerebrovascular accident. Coronary artery disease. Anemia Congestive heart failure with reduced ejection fraction. Diabetes. Gastroesophageal reflux disease. Arthritis. History of seizures. Dementia. Adult failure to thrive. Protein-calorie malnutrition, moderate. - begin midodrine at 10 mg tid acutely for BP support - increase Dobutamine to 5 mics/kg/min - stop neosynephrine (wean for target MAP > 65 mmHg) - continue to wean vasopressors for MAP > 65 mmHg - consider stress steroid dosing (appears cardiogenic shock element now) - optimize heart failure measures per cardiology team - continue supportive HD/UF for toxin and volume clearance - Life vest per cardiology rec's - complete antibiotics per ID, de-escalate as indicated (cefepime) - Maintain sleep- wake cycle, prevent delirium - continue wound care, off loading as tolerated - prn Analgesia per pain score - continue accucheck's with glycemic control per SSI for target blood glucose 140-180 mg/dL - continue to avoid nephrotoxins, adjust medications for CrCL and GFR - continue VTE prophylaxis with heparin; monitor for bleeding - continue Stress ulcer prophylaxis with Pepcid - aspiration precautions - PT/OT/ROM exercises as tolerated - continue mobility protocols for pressure ulcer prophylaxis - continue other care per attending / other consultants ..... re-evaluate in am & prn CONDITION: CRITICAL PROGNOSIS: GUARDED CODE STATUS: DNR NOW The high probability of a clinically significant, sudden or life threatening deterioration of the [cardiovascular,endocrine, renal] system(s) required my full and direct attention, intervention and personal management. The aggregate critical care time was [35] minutes. This time is in addition to time spent performing reported procedures but includes the following: [x] Data Review and interpretation [x]Patient assessment and monitoring of vital signs [x] Documentation [x] Medication orders and management Subjective Date of service: 10/31/18 Principal diagnosis: Ac on chr encephalopathy; Hypotension; ESRD on Dialysis; HFrEF; DM II; GERD Interval history: Patient is seen today for: Ac on chr encephalopathy; Hypotension (? Cardiogenic Shock component); ESRD on Dialysis; Acute hypoxemic respiratory failure; H/O HTN; CAD; HFrEF; Diabetes type II; GERD; H/O seizures; Protein-calorie malnutrition, moderate. Seen and examined at bedside; 24hour events reviewed; nursing and respiratory care staff consulted; no adverse overnight events reported to me; resting peacefully in bed; AMS is persistent; s/p dialysis yesterday; NO emesis or overt aspiration; remains on Dobutamine at 5 bebeto's/kg/min and neosynephrine drip at 10 bebeto's/min Objective Vital Signs - 12hr 10/30/18 10/30/18 10/31/18 23:30 23:34 00:00 Temperature Pulse Rate 94 H 93 H 93 H Pulse Rate [ From Monitor] Respiratory 17 18 17 Rate Blood Pressure 98/58 108/62 105/65 O2 Sat by Pulse 100 100 100 Oximetry 10/31/18 10/31/18 10/31/18 00:30 01:00 01:25 Temperature Pulse Rate 93 H 93 H Pulse Rate [ 93 H From Monitor] Respiratory 18 22 17 Rate Blood Pressure 110/66 105/61 O2 Sat by Pulse 100 100 100 Oximetry 10/31/18 10/31/18 10/31/18 01:30 02:00 02:30 Temperature Pulse Rate 93 H 93 H 93 H Pulse Rate [ From Monitor] Respiratory 17 18 19 Rate Blood Pressure 112/63 118/68 113/71 O2 Sat by Pulse 97 92 100 Oximetry 10/31/18 10/31/18 10/31/18 03:00 03:25 03:30 Temperature Pulse Rate 93 H 91 H 91 H Pulse Rate [ 93 H From Monitor] Respiratory 18 17 17 Rate Blood Pressure 116/66 107/66 O2 Sat by Pulse 99 100 100 Oximetry 10/31/18 10/31/18 10/31/18 03:44 04:00 04:30 Temperature 98.8 F Pulse Rate 91 H 92 H Pulse Rate [ From Monitor] Respiratory 15 17 Rate Blood Pressure 103/61 107/61 O2 Sat by Pulse 100 100 Oximetry 10/31/18 10/31/18 10/31/18 05:00 05:30 05:42 Temperature Pulse Rate 96 H 98 H 91 H Pulse Rate [ 99 H From Monitor] Respiratory 17 14 17 Rate Blood Pressure 105/63 108/67 O2 Sat by Pulse 99 100 100 Oximetry 10/31/18 10/31/18 10/31/18 06:00 06:30 08:03 Temperature Pulse Rate 100 H 97 H Pulse Rate [ From Monitor] Respiratory 16 16 Rate Blood Pressure 105/64 108/66 O2 Sat by Pulse 99 100 98 Oximetry 10/31/18 08:55 Temperature Pulse Rate Pulse Rate [ From Monitor] Respiratory Rate Blood Pressure O2 Sat by Pulse 99 Oximetry Constitutional: no acute distress, asleep, other (elderly looking AAF, normocephalic abnd atraumatic resting peacefully in bed) Eyes: non-icteric ENT: oropharynx moist, other ([place] 2) Neck: supple, no lymphadenopathy, no JVD, other (no thyromegaly) Effort: mildly labored Ascultation: Bilateral: diminished breath sounds, rales (bases) Percussion: Bilateral: dull (bases) Cardiovascular: regular rate and rhythm, other (+ Systolic murmur) Gastrointestinal: normoactive bowel sounds, soft, non-tender, non-distended Integumentary: normal Extremities: no cyanosis, no edema, pulses normal, no ischemia or petechiae Neurologic: non-focal exam (grossly), unable to assess, other (encephalopathic) Psychiatric: other (unable to assess re: AMS) CBC and BMP: 10/29/18 00:56 10/29/18 13:25 ABG, PT/INR, D-dimer: ABG POC ABG pH 7.436 (7.35-7.45) 10/23/18 20:51 POC ABG pCO2 34.3 (35-45) L 10/23/18 20:51 POC ABG pO2 95 (80-105) 10/23/18 20:51 POC ABG HCO3 23.1 (22-26 mml/L) 10/23/18 20:51 POC ABG Total CO2 24 (23-27mmol/L) 10/23/18 20:51 POC ABG O2 Sat 98 10/23/18 20:51 PT/INR, D-dimer PT 20.6 Sec. (12.2-14.9) H 10/17/18 10:19 INR 1.81 (0.87-1.13) H 10/17/18 10:19 Abnormal lab findings: Abnormal Labs 10/17/18 10/17/18 10/17/18 10:16 10:19 10:19 WBC RBC Hgb Hct MCV RDW Plt Count Lymph % (Auto) 9.5 L [place] % (Auto) Lymph # 1.0 L [place] # Seg Neutrophils % 84.7 H Seg Neuts % (Manual) Lymphocytes % (Manual) Monocytes % (Manual) Nucleated RBC % Seg Neutrophils # 8.7 H Seg Neutrophils # Man Lymphocytes # (Manual) PT 20.6 H INR 1.81 H POC ABG pH POC ABG pCO2 POC ABG pO2 Sodium Potassium Chloride Carbon Dioxide BUN Creatinine Glucose POC Glucose 277 H Calcium Phosphorus TIBC Ferritin AST ALT Alkaline Phosphatase Lactate Dehydrogenase Total Creatine Kinase Troponin T C-Reactive Protein Serum Total Protein Total Protein Albumin Ndbaa-0-Jgsrkbden PEP Interpretation HDL Cholesterol Vitamin B12 Urine Creatinine Ur Creatinine 24 Hour Urine Total Protein Salicylates Acetaminophen 10/17/18 10/17/18 10/17/18 13:14 13:16 13:34 WBC RBC Hgb Hct MCV RDW Plt Count Lymph % (Auto) [place] % (Auto) Lymph # [place] # Seg Neutrophils % Seg Neuts % (Manual) Lymphocytes % (Manual) Monocytes % (Manual) Nucleated RBC % Seg Neutrophils # Seg Neutrophils # Man Lymphocytes # (Manual) PT INR POC ABG pH POC ABG pCO2 POC ABG pO2 Sodium Potassium Chloride Carbon Dioxide BUN Creatinine Glucose POC Glucose 330 H Calcium Phosphorus TIBC Ferritin AST ALT Alkaline Phosphatase Lactate Dehydrogenase Total Creatine Kinase Troponin T C-Reactive Protein Serum Total Protein Total Protein Albumin Gmjtx-4-Rlhddjfap PEP Interpretation HDL Cholesterol Vitamin B12 Urine Creatinine 276.0 H 271.1 H Ur Creatinine 24 Hour Urine Total Protein 191 H Salicylates Acetaminophen 10/17/18 10/17/18 10/17/18 15:15 21:03 Unknown WBC RBC Hgb Hct MCV RDW Plt Count Lymph % (Auto) [place] % (Auto) Lymph # [place] # Seg Neutrophils % Seg Neuts % (Manual) Lymphocytes % (Manual) Monocytes % (Manual) Nucleated RBC % Seg Neutrophils # Seg Neutrophils # Man Lymphocytes # (Manual) PT INR POC ABG pH POC ABG pCO2 POC ABG pO2 Sodium Potassium 6.6 H* Chloride Carbon Dioxide 10 L BUN 111 H Creatinine 6.5 H Glucose 351 H POC Glucose 143 H Calcium Phosphorus TIBC Ferritin AST ALT Alkaline Phosphatase Lactate Dehydrogenase Total Creatine Kinase 3216 H Troponin T 4.720 H* C-Reactive Protein Serum Total Protein Total Protein Albumin Gzpaw-5-Uosavsttb PEP Interpretation HDL Cholesterol 88 H Vitamin B12 Urine Creatinine Ur Creatinine 24 Hour Urine Total Protein Salicylates Acetaminophen 10/17/18 10/17/18 10/18/18 Unknown Unknown 07:29 WBC RBC Hgb Hct MCV RDW Plt Count Lymph % (Auto) [place] % (Auto) Lymph # [place] # Seg Neutrophils % Seg Neuts % (Manual) Lymphocytes % (Manual) Monocytes % (Manual) Nucleated RBC % Seg Neutrophils # Seg Neutrophils # Man Lymphocytes # (Manual) PT INR POC ABG pH POC ABG pCO2 POC ABG pO2 Sodium Potassium Chloride Carbon Dioxide BUN Creatinine Glucose POC Glucose 120 H Calcium Phosphorus TIBC Ferritin AST ALT Alkaline Phosphatase Lactate Dehydrogenase Total Creatine Kinase Troponin T C-Reactive Protein Serum Total Protein Total Protein Albumin Nqsio-3-Xpsecrbor PEP Interpretation HDL Cholesterol Vitamin B12 Urine Creatinine Ur Creatinine 24 Hour Urine Total Protein Salicylates < 0.3 L Acetaminophen < 5.0 L 10/18/18 10/18/18 10/18/18 09:09 09:09 12:21 WBC RBC 3.28 L Hgb Hct MCV RDW Plt Count 125 L Lymph % (Auto) 13.2 L [place] % (Auto) Lymph # 1.1 L [place] # Seg Neutrophils % 80.7 H Seg Neuts % (Manual) Lymphocytes % (Manual) Monocytes % (Manual) Nucleated RBC % Seg Neutrophils # Seg Neutrophils # Man Lymphocytes # (Manual) PT INR POC ABG pH POC ABG pCO2 POC ABG pO2 Sodium Potassium Chloride 97.9 L Carbon Dioxide 20 L D BUN 38 H Creatinine 3.2 H D Glucose 207 H POC Glucose 180 H Calcium Phosphorus TIBC Ferritin AST ALT Alkaline Phosphatase Lactate Dehydrogenase Total Creatine Kinase Troponin T C-Reactive Protein Serum Total Protein Total Protein Albumin Njuao-4-Jrfxkqkqk PEP Interpretation HDL Cholesterol Vitamin B12 Urine Creatinine Ur Creatinine 24 Hour Urine Total Protein Salicylates Acetaminophen 10/18/18 10/18/18 10/19/18 17:14 20:50 05:20 WBC RBC 3.46 L Hgb Hct MCV 98 H RDW 16.4 H Plt Count 55 L Lymph % (Auto) [place] % (Auto) Lymph # [place] # Seg Neutrophils % Seg Neuts % (Manual) Lymphocytes % (Manual) Monocytes % (Manual) 9.0 H Nucleated RBC % 4.0 H Seg Neutrophils # Seg Neutrophils # Man Lymphocytes # (Manual) PT INR POC ABG pH POC ABG pCO2 POC ABG pO2 Sodium Potassium Chloride Carbon Dioxide BUN Creatinine Glucose POC Glucose 256 H 335 H Calcium Phosphorus TIBC Ferritin AST ALT Alkaline Phosphatase Lactate Dehydrogenase Total Creatine Kinase Troponin T C-Reactive Protein Serum Total Protein Total Protein Albumin Itigs-4-Lttlqcimt PEP Interpretation HDL Cholesterol Vitamin B12 Urine Creatinine Ur Creatinine 24 Hour Urine Total Protein Salicylates Acetaminophen 10/19/18 10/19/18 10/19/18 05:20 08:34 08:34 WBC RBC Hgb Hct MCV RDW Plt Count Lymph % (Auto) [place] % (Auto) Lymph # [place] # Seg Neutrophils % Seg Neuts % (Manual) Lymphocytes % (Manual) Monocytes % (Manual) Nucleated RBC % Seg Neutrophils # Seg Neutrophils # Man Lymphocytes # (Manual) PT INR POC ABG pH POC ABG pCO2 POC ABG pO2 Sodium Potassium Chloride Carbon Dioxide 21 L BUN 52 H Creatinine 4.2 H Glucose 106 H POC Glucose Calcium Phosphorus TIBC 193 L Ferritin 2450.0 H AST ALT Alkaline Phosphatase Lactate Dehydrogenase 892 H Total Creatine Kinase Troponin T C-Reactive Protein Serum Total Protein Total Protein Albumin Ctxka-7-Bggtzfcoe PEP Interpretation HDL Cholesterol Vitamin B12 Urine Creatinine Ur Creatinine 24 Hour Urine Total Protein Salicylates Acetaminophen 10/19/18 10/19/18 10/19/18 08:34 09:06 13:41 WBC RBC Hgb Hct MCV RDW Plt Count Lymph % (Auto) [place] % (Auto) Lymph # [place] # Seg Neutrophils % Seg Neuts % (Manual) Lymphocytes % (Manual) Monocytes % (Manual) Nucleated RBC % Seg Neutrophils # Seg Neutrophils # Man Lymphocytes # (Manual) PT INR POC ABG pH POC ABG pCO2 POC ABG pO2 Sodium Potassium Chloride Carbon Dioxide BUN Creatinine Glucose POC Glucose 141 H 156 H Calcium Phosphorus TIBC Ferritin AST ALT Alkaline Phosphatase Lactate Dehydrogenase Total Creatine Kinase Troponin T C-Reactive Protein Serum Total Protein Total Protein Albumin Sponf-2-Xacgxiplg PEP Interpretation HDL Cholesterol Vitamin B12 1296 H Urine Creatinine Ur Creatinine 24 Hour Urine Total Protein Salicylates Acetaminophen 10/19/18 10/19/18 10/20/18 15:53 22:51 05:07 WBC RBC 3.23 L Hgb 10.0 L Hct MCV RDW 15.7 H Plt Count 111 L D Lymph % (Auto) [place] % (Auto) 8.0 H Lymph # [place] # Seg Neutrophils % Seg Neuts % (Manual) Lymphocytes % (Manual) Monocytes % (Manual) Nucleated RBC % Seg Neutrophils # Seg Neutrophils # Man Lymphocytes # (Manual) PT INR POC ABG pH POC ABG pCO2 POC ABG pO2 Sodium Potassium Chloride Carbon Dioxide BUN Creatinine Glucose POC Glucose 193 H 228 H Calcium Phosphorus TIBC Ferritin AST ALT Alkaline Phosphatase Lactate Dehydrogenase Total Creatine Kinase Troponin T C-Reactive Protein Serum Total Protein Total Protein Albumin Azsqy-2-Tuqiqnmoq PEP Interpretation HDL Cholesterol Vitamin B12 Urine Creatinine Ur Creatinine 24 Hour Urine Total Protein Salicylates Acetaminophen 10/20/18 10/20/18 10/20/18 05:07 05:07 10:44 WBC RBC Hgb Hct MCV RDW Plt Count Lymph % (Auto) [place] % (Auto) Lymph # [place] # Seg Neutrophils % Seg Neuts % (Manual) Lymphocytes % (Manual) Monocytes % (Manual) Nucleated RBC % Seg Neutrophils # Seg Neutrophils # Man Lymphocytes # (Manual) PT INR POC ABG pH POC ABG pCO2 POC ABG pO2 Sodium Potassium Chloride Carbon Dioxide BUN 32 H Creatinine 3.2 H Glucose 177 H POC Glucose 160 H Calcium 8.0 L Phosphorus TIBC Ferritin AST 305 H ALT 728 H Alkaline Phosphatase 402 H Lactate Dehydrogenase Total Creatine Kinase Troponin T C-Reactive Protein Serum Total Protein 5.5 L Total Protein 6.0 L Albumin 2.9 L 2.7 L Zohxg-5-Rbfchbwyx 0.4 H PEP Interpretation see below H HDL Cholesterol Vitamin B12 Urine Creatinine Ur Creatinine 24 Hour Urine Total Protein Salicylates Acetaminophen 10/20/18 10/20/18 10/20/18 13:45 17:19 20:44 WBC RBC Hgb Hct MCV RDW Plt Count Lymph % (Auto) [place] % (Auto) Lymph # [place] # Seg Neutrophils % Seg Neuts % (Manual) Lymphocytes % (Manual) Monocytes % (Manual) Nucleated RBC % Seg Neutrophils # Seg Neutrophils # Man Lymphocytes # (Manual) PT INR POC ABG pH POC ABG pCO2 POC ABG pO2 Sodium Potassium Chloride Carbon Dioxide BUN Creatinine Glucose POC Glucose 143 H 234 H Calcium Phosphorus TIBC Ferritin AST ALT Alkaline Phosphatase Lactate Dehydrogenase Total Creatine Kinase Troponin T C-Reactive Protein Serum Total Protein Total Protein Albumin Rwzgw-3-Hlzrvmlef PEP Interpretation HDL Cholesterol Vitamin B12 Urine Creatinine 157.6 H Ur Creatinine 24 Hour Urine Total Protein Salicylates Acetaminophen 10/21/18 10/21/18 10/21/18 05:57 05:57 07:55 WBC RBC 3.16 L Hgb 10.0 L Hct 29.9 L MCV RDW 15.4 H Plt Count 125 L Lymph % (Auto) [place] % (Auto) 9.6 H Lymph # [place] # Seg Neutrophils % 71.3 H Seg Neuts % (Manual) Lymphocytes % (Manual) Monocytes % (Manual) Nucleated RBC % Seg Neutrophils # Seg Neutrophils # Man Lymphocytes # (Manual) PT INR POC ABG pH POC ABG pCO2 POC ABG pO2 Sodium Potassium Chloride Carbon Dioxide BUN 47 H Creatinine 4.9 H D Glucose 229 H POC Glucose 239 H Calcium 8.0 L Phosphorus TIBC Ferritin AST ALT Alkaline Phosphatase Lactate Dehydrogenase Total Creatine Kinase Troponin T C-Reactive Protein Serum Total Protein Total Protein Albumin Talnn-3-Sokexgqub PEP Interpretation HDL Cholesterol Vitamin B12 Urine Creatinine Ur Creatinine 24 Hour Urine Total Protein Salicylates Acetaminophen 10/21/18 10/21/18 10/21/18 12:05 15:40 18:19 WBC RBC Hgb Hct MCV RDW Plt Count Lymph % (Auto) [place] % (Auto) Lymph # [place] # Seg Neutrophils % Seg Neuts % (Manual) Lymphocytes % (Manual) Monocytes % (Manual) Nucleated RBC % Seg Neutrophils # Seg Neutrophils # Man Lymphocytes # (Manual) PT INR POC ABG pH POC ABG pCO2 POC ABG pO2 Sodium Potassium Chloride Carbon Dioxide BUN Creatinine Glucose POC Glucose 446 H 263 H Calcium Phosphorus TIBC Ferritin AST ALT Alkaline Phosphatase Lactate Dehydrogenase Total Creatine Kinase Troponin T C-Reactive Protein Serum Total Protein Total Protein Albumin Tlkfo-0-Bodmxkrbx PEP Interpretation HDL Cholesterol Vitamin B12 Urine Creatinine 196.7 H Ur Creatinine 24 Hour 0.1 L Urine Total Protein Salicylates Acetaminophen 10/22/18 10/22/18 10/22/18 00:45 06:24 06:24 WBC RBC 3.17 L Hgb 9.9 L Hct MCV RDW 15.7 H Plt Count 134 L Lymph % (Auto) [place] % (Auto) Lymph # [place] # Seg Neutrophils % Seg Neuts % (Manual) 78.0 H Lymphocytes % (Manual) Monocytes % (Manual) Nucleated RBC % Seg Neutrophils # Seg Neutrophils # Man 8.3 H Lymphocytes # (Manual) PT INR POC ABG pH POC ABG pCO2 POC ABG pO2 Sodium Potassium Chloride Carbon Dioxide BUN 33 H Creatinine 3.9 H Glucose 171 H POC Glucose 179 H Calcium Phosphorus TIBC Ferritin AST ALT Alkaline Phosphatase Lactate Dehydrogenase Total Creatine Kinase Troponin T C-Reactive Protein Serum Total Protein Total Protein Albumin Hqezi-2-Knusrgnbl PEP Interpretation HDL Cholesterol Vitamin B12 Urine Creatinine Ur Creatinine 24 Hour Urine Total Protein Salicylates Acetaminophen 08/11/0210/22/18 10/22/18 12:47 18:33 21:58 WBC RBC Hgb Hct MCV RDW Plt Count Lymph % (Auto) [place] % (Auto) Lymph # [place] # Seg Neutrophils % Seg Neuts % (Manual) Lymphocytes % (Manual) Monocytes % (Manual) Nucleated RBC % Seg Neutrophils # Seg Neutrophils # Man Lymphocytes # (Manual) PT INR POC ABG pH POC ABG pCO2 POC ABG pO2 Sodium Potassium Chloride Carbon Dioxide BUN Creatinine Glucose POC Glucose 210 H 176 H 230 H Calcium Phosphorus TIBC Ferritin AST ALT Alkaline Phosphatase Lactate Dehydrogenase Total Creatine Kinase Troponin T C-Reactive Protein Serum Total Protein Total Protein Albumin Fggsn-2-Mudnjtxqw PEP Interpretation HDL Cholesterol Vitamin B12 Urine Creatinine Ur Creatinine 24 Hour Urine Total Protein Salicylates Acetaminophen 10/23/18 10/23/18 10/23/18 05:24 05:24 07:31 WBC RBC 3.49 L Hgb Hct MCV RDW 16.7 H Plt Count Lymph % (Auto) [place] % (Auto) Lymph # [place] # Seg Neutrophils % Seg Neuts % (Manual) 88.0 H Lymphocytes % (Manual) 6.0 L Monocytes % (Manual) Nucleated RBC % Seg Neutrophils # Seg Neutrophils # Man 9.3 H Lymphocytes # (Manual) 0.6 L PT INR POC ABG pH POC ABG pCO2 POC ABG pO2 Sodium Potassium Chloride Carbon Dioxide BUN 49 H Creatinine 5.0 H Glucose 211 H POC Glucose 137 H Calcium Phosphorus 5.30 H D TIBC Ferritin AST ALT Alkaline Phosphatase Lactate Dehydrogenase Total Creatine Kinase Troponin T C-Reactive Protein Serum Total Protein Total Protein Albumin Sltbv-6-Uumobltvr PEP Interpretation HDL Cholesterol Vitamin B12 Urine Creatinine Ur Creatinine 24 Hour Urine Total Protein Salicylates Acetaminophen 10/23/18 10/23/18 10/23/18 11:50 11:51 14:59 WBC RBC Hgb Hct MCV RDW Plt Count Lymph % (Auto) [place] % (Auto) Lymph # [place] # Seg Neutrophils % Seg Neuts % (Manual) Lymphocytes % (Manual) Monocytes % (Manual) Nucleated RBC % Seg Neutrophils # Seg Neutrophils # Man Lymphocytes # (Manual) PT INR POC ABG pH 7.346 L POC ABG pCO2 POC ABG pO2 116 H Sodium Potassium Chloride Carbon Dioxide BUN Creatinine Glucose POC Glucose 232 H Calcium Phosphorus TIBC Ferritin AST ALT Alkaline Phosphatase Lactate Dehydrogenase Total Creatine Kinase Troponin T C-Reactive Protein 24.10 H Serum Total Protein Total Protein Albumin Cfamv-0-Okcrlzhsq PEP Interpretation HDL Cholesterol Vitamin B12 Urine Creatinine Ur Creatinine 24 Hour Urine Total Protein Salicylates Acetaminophen 10/23/18 10/23/18 10/23/18 18:29 20:51 23:37 WBC RBC Hgb Hct MCV RDW Plt Count Lymph % (Auto) [place] % (Auto) Lymph # [place] # Seg Neutrophils % Seg Neuts % (Manual) Lymphocytes % (Manual) Monocytes % (Manual) Nucleated RBC % Seg Neutrophils # Seg Neutrophils # Man Lymphocytes # (Manual) PT INR POC ABG pH POC ABG pCO2 34.3 L POC ABG pO2 Sodium Potassium Chloride Carbon Dioxide BUN Creatinine Glucose POC Glucose 182 H 232 H Calcium Phosphorus TIBC Ferritin AST ALT Alkaline Phosphatase Lactate Dehydrogenase Total Creatine Kinase Troponin T C-Reactive Protein Serum Total Protein Total Protein Albumin Aguvk-4-Oksnsgqlv PEP Interpretation HDL Cholesterol Vitamin B12 Urine Creatinine Ur Creatinine 24 Hour Urine Total Protein Salicylates Acetaminophen 10/24/18 10/24/18 10/24/18 04:50 04:50 07:44 WBC RBC 3.13 L Hgb 9.7 L Hct MCV RDW 16.8 H Plt Count 132 L Lymph % (Auto) [place] % (Auto) Lymph # [place] # Seg Neutrophils % Seg Neuts % (Manual) 79.0 H Lymphocytes % (Manual) 11.0 L Monocytes % (Manual) Nucleated RBC % Seg Neutrophils # Seg Neutrophils # Man 8.7 H Lymphocytes # (Manual) PT INR POC ABG pH POC ABG pCO2 POC ABG pO2 Sodium 136 L Potassium Chloride 94.6 L Carbon Dioxide BUN 25 H Creatinine 3.3 H Glucose 214 H POC Glucose 219 H Calcium Phosphorus TIBC Ferritin AST ALT Alkaline Phosphatase Lactate Dehydrogenase Total Creatine Kinase Troponin T C-Reactive Protein Serum Total Protein Total Protein Albumin Mkwwz-4-Qxucnbuub PEP Interpretation HDL Cholesterol Vitamin B12 Urine Creatinine Ur Creatinine 24 Hour Urine Total Protein Salicylates Acetaminophen 10/24/18 10/24/18 10/24/18 11:52 18:25 21:12 WBC RBC Hgb Hct MCV RDW Plt Count Lymph % (Auto) [place] % (Auto) Lymph # [place] # Seg Neutrophils % Seg Neuts % (Manual) Lymphocytes % (Manual) Monocytes % (Manual) Nucleated RBC % Seg Neutrophils # Seg Neutrophils # Man Lymphocytes # (Manual) PT INR POC ABG pH POC ABG pCO2 POC ABG pO2 Sodium Potassium Chloride Carbon Dioxide BUN Creatinine Glucose POC Glucose 290 H 113 H 123 H Calcium Phosphorus TIBC Ferritin AST ALT Alkaline Phosphatase Lactate Dehydrogenase Total Creatine Kinase Troponin T C-Reactive Protein Serum Total Protein Total Protein Albumin Ffbqu-7-Jrhxzcenm PEP Interpretation HDL Cholesterol Vitamin B12 Urine Creatinine Ur Creatinine 24 Hour Urine Total Protein Salicylates Acetaminophen 10/25/18 10/25/18 10/25/18 06:29 11:31 12:28 WBC RBC Hgb Hct MCV RDW Plt Count Lymph % (Auto) [place] % (Auto) Lymph # [place] # Seg Neutrophils % Seg Neuts % (Manual) Lymphocytes % (Manual) Monocytes % (Manual) Nucleated RBC % Seg Neutrophils # Seg Neutrophils # Man Lymphocytes # (Manual) PT INR POC ABG pH POC ABG pCO2 POC ABG pO2 Sodium Potassium Chloride 94.1 L Carbon Dioxide BUN 42 H Creatinine 4.8 H Glucose 192 H POC Glucose 208 H 225 H Calcium Phosphorus TIBC Ferritin AST ALT Alkaline Phosphatase Lactate Dehydrogenase Total Creatine Kinase Troponin T C-Reactive Protein Serum Total Protein Total Protein Albumin Nxtqj-2-Tiihmnxng PEP Interpretation HDL Cholesterol Vitamin B12 Urine Creatinine Ur Creatinine 24 Hour Urine Total Protein Salicylates Acetaminophen 10/25/18 10/25/18 10/26/18 16:16 23:38 05:49 WBC RBC Hgb Hct MCV RDW Plt Count Lymph % (Auto) [place] % (Auto) Lymph # [place] # Seg Neutrophils % Seg Neuts % (Manual) Lymphocytes % (Manual) Monocytes % (Manual) Nucleated RBC % Seg Neutrophils # Seg Neutrophils # Man Lymphocytes # (Manual) PT INR POC ABG pH POC ABG pCO2 POC ABG pO2 Sodium Potassium Chloride Carbon Dioxide BUN Creatinine Glucose POC Glucose 228 H 312 H 246 H Calcium Phosphorus TIBC Ferritin AST ALT Alkaline Phosphatase Lactate Dehydrogenase Total Creatine Kinase Troponin T C-Reactive Protein Serum Total Protein Total Protein Albumin Ouxzp-8-Vrjphqxnp PEP Interpretation HDL Cholesterol Vitamin B12 Urine Creatinine Ur Creatinine 24 Hour Urine Total Protein Salicylates Acetaminophen 10/26/18 10/26/18 10/26/18 06:13 06:13 09:17 WBC 12.3 H RBC 3.35 L Hgb Hct MCV RDW 16.4 H Plt Count Lymph % (Auto) 8.4 L [place] % (Auto) 10.7 H Lymph # 1.0 L [place] # 1.3 H Seg Neutrophils % 80.4 H Seg Neuts % (Manual) Lymphocytes % (Manual) Monocytes % (Manual) Nucleated RBC % Seg Neutrophils # 9.9 H Seg Neutrophils # Man Lymphocytes # (Manual) PT INR POC ABG pH POC ABG pCO2 POC ABG pO2 Sodium 136 L Potassium Chloride 91.7 L Carbon Dioxide BUN 54 H Creatinine 6.0 H Glucose 247 H POC Glucose 252 H Calcium Phosphorus TIBC Ferritin AST ALT Alkaline Phosphatase 251 H Lactate Dehydrogenase 458 H Total Creatine Kinase Troponin T C-Reactive Protein Serum Total Protein Total Protein 5.9 L Albumin 3.0 L Ocvqh-4-Pgvnmbijy PEP Interpretation HDL Cholesterol Vitamin B12 Urine Creatinine Ur Creatinine 24 Hour Urine Total Protein Salicylates Acetaminophen 10/26/18 10/27/18 10/27/18 15:31 00:37 06:20 WBC RBC Hgb Hct MCV RDW Plt Count Lymph % (Auto) [place] % (Auto) Lymph # [place] # Seg Neutrophils % Seg Neuts % (Manual) Lymphocytes % (Manual) Monocytes % (Manual) Nucleated RBC % Seg Neutrophils # Seg Neutrophils # Man Lymphocytes # (Manual) PT INR POC ABG pH POC ABG pCO2 POC ABG pO2 Sodium Potassium Chloride Carbon Dioxide BUN Creatinine Glucose POC Glucose 265 H 308 H 368 H Calcium Phosphorus TIBC Ferritin AST ALT Alkaline Phosphatase Lactate Dehydrogenase Total Creatine Kinase Troponin T C-Reactive Protein Serum Total Protein Total Protein Albumin [id number]-[id number] PEP Interpretation HDL Cholesterol Vitamin B12 Urine Creatinine Ur Creatinine 24 Hour Urine Total Protein Salicylates Acetaminophen 10/27/18 10/27/18 10/27/18 11:19 16:40 22:48 WBC RBC Hgb Hct MCV RDW Plt Count Lymph % (Auto) [place] % (Auto) Lymph # [place] # Seg Neutrophils % Seg Neuts % (Manual) Lymphocytes % (Manual) Monocytes % (Manual) Nucleated RBC % Seg Neutrophils # Seg Neutrophils # Man Lymphocytes # (Manual) PT INR POC ABG pH POC ABG pCO2 POC ABG pO2 Sodium Potassium Chloride Carbon Dioxide BUN Creatinine Glucose POC Glucose 331 H 348 H 345 H Calcium Phosphorus TIBC Ferritin AST ALT Alkaline Phosphatase Lactate Dehydrogenase Total Creatine Kinase Troponin T C-Reactive Protein Serum Total Protein Total Protein Albumin Grxiv-1-Fwaweepjn PEP Interpretation HDL Cholesterol Vitamin B12 Urine Creatinine Ur Creatinine 24 Hour Urine Total Protein Salicylates Acetaminophen 10/28/18 10/28/18 10/28/18 05:52 05:58 05:58 WBC 12.5 H RBC 2.82 L Hgb 8.7 L Hct 26.7 L MCV RDW 16.2 H Plt Count Lymph % (Auto) [place] % (Auto) Lymph # [place] # Seg Neutrophils % Seg Neuts % (Manual) Lymphocytes % (Manual) Monocytes % (Manual) Nucleated RBC % Seg Neutrophils # Seg Neutrophils # Man Lymphocytes # (Manual) PT INR POC ABG pH POC ABG pCO2 POC ABG pO2 Sodium Potassium Chloride 93.7 L Carbon Dioxide BUN 55 H Creatinine 5.3 H Glucose 286 H POC Glucose 280 H Calcium 8.3 L Phosphorus TIBC Ferritin AST ALT Alkaline Phosphatase Lactate Dehydrogenase Total Creatine Kinase Troponin T C-Reactive Protein Serum Total Protein Total Protein Albumin Prxfy-1-Vvedkanox PEP Interpretation HDL Cholesterol Vitamin B12 Urine Creatinine Ur Creatinine 24 Hour Urine Total Protein Salicylates Acetaminophen 10/28/18 10/29/18 10/29/18 18:09 00:56 12:56 WBC 12.5 H RBC 2.82 L Hgb 8.6 L Hct 26.5 L MCV RDW 16.2 H Plt Count Lymph % (Auto) 7.1 L [place] % (Auto) 9.7 H Lymph # 0.9 L [place] # 1.2 H Seg Neutrophils % 81.8 H Seg Neuts % (Manual) Lymphocytes % (Manual) Monocytes % (Manual) Nucleated RBC % Seg Neutrophils # 10.2 H Seg Neutrophils # Man Lymphocytes # (Manual) PT INR POC ABG pH POC ABG pCO2 POC ABG pO2 Sodium Potassium Chloride Carbon Dioxide BUN Creatinine Glucose POC Glucose 289 H 172 H Calcium Phosphorus TIBC Ferritin AST ALT Alkaline Phosphatase Lactate Dehydrogenase Total Creatine Kinase Troponin T C-Reactive Protein Serum Total Protein Total Protein Albumin Xksjh-2-Urwsozjrk PEP Interpretation HDL Cholesterol Vitamin B12 Urine Creatinine Ur Creatinine 24 Hour Urine Total Protein Salicylates Acetaminophen 10/29/18 10/29/18 10/30/18 13:25 17:58 00:18 WBC RBC Hgb Hct MCV RDW Plt Count Lymph % (Auto) [place] % (Auto) Lymph # [place] # Seg Neutrophils % Seg Neuts % (Manual) Lymphocytes % (Manual) Monocytes % (Manual) Nucleated RBC % Seg Neutrophils # Seg Neutrophils # Man Lymphocytes # (Manual) PT INR POC ABG pH POC ABG pCO2 POC ABG pO2 Sodium 134 L Potassium Chloride 90.8 L Carbon Dioxide BUN 75 H Creatinine 6.5 H Glucose 251 H POC Glucose 227 H 279 H Calcium Phosphorus TIBC Ferritin AST ALT Alkaline Phosphatase Lactate Dehydrogenase Total Creatine Kinase Troponin T C-Reactive Protein Serum Total Protein Total Protein Albumin Kmnim-3-Vhymchdbx PEP Interpretation HDL Cholesterol Vitamin B12 Urine Creatinine Ur Creatinine 24 Hour Urine Total Protein Salicylates Acetaminophen 10/30/18 10/30/18 10/30/18 05:30 13:01 18:08 WBC RBC Hgb Hct MCV RDW Plt Count Lymph % (Auto) [place] % (Auto) Lymph # [place] # Seg Neutrophils % Seg Neuts % (Manual) Lymphocytes % (Manual) Monocytes % (Manual) Nucleated RBC % Seg Neutrophils # Seg Neutrophils # Man Lymphocytes # (Manual) PT INR POC ABG pH POC ABG pCO2 POC ABG pO2 Sodium Potassium Chloride Carbon Dioxide BUN Creatinine Glucose POC Glucose 230 H 315 H 232 H Calcium Phosphorus TIBC Ferritin AST ALT Alkaline Phosphatase Lactate Dehydrogenase Total Creatine Kinase Troponin T C-Reactive Protein Serum Total Protein Total Protein Albumin Uyxct-7-Fhcvridue PEP Interpretation HDL Cholesterol Vitamin B12 Urine Creatinine Ur Creatinine 24 Hour Urine Total Protein Salicylates Acetaminophen 10/30/18 10/31/18 23:31 05:26 WBC RBC Hgb Hct MCV RDW Plt Count Lymph % (Auto) [place] % (Auto) Lymph # [place] # Seg Neutrophils % Seg Neuts % (Manual) Lymphocytes % (Manual) Monocytes % (Manual) Nucleated RBC % Seg Neutrophils # Seg Neutrophils # Man Lymphocytes # (Manual) PT INR POC ABG pH POC ABG pCO2 POC ABG pO2 Sodium Potassium Chloride Carbon Dioxide BUN Creatinine Glucose POC Glucose 247 H 174 H Calcium Phosphorus TIBC Ferritin AST ALT Alkaline Phosphatase Lactate Dehydrogenase Total Creatine Kinase Troponin T C-Reactive Protein Serum Total Protein Total Protein Albumin Fvpuo-5-Jenfeimin PEP Interpretation HDL Cholesterol Vitamin B12 Urine Creatinine Ur Creatinine 24 Hour Urine Total Protein Salicylates Acetaminophen Chest x-ray: image reviewed (mild volume overload; effusions; cardiomegaly) Allied health notes reviewed: nursing
--- NOTE | 2018-10-31 12:33 | Progress Note ---
Assessment and Plan Acute renal failure on chronic kidney disease, now on HD AG metabolic acidosis, Resolved Hyperkalemia Metabolic encephalopathy CVA - S/p HD yesterday for UF and clearance, UF removed 2 liters - No acute indication for HD today - Assess need for HD on daily basis - On Dobutamine and Phenylephrine drips for blood pressure support - Urine eosinophils were negative - Renal US negative for obstruction - Renally dose medications - Strict I&O - Outpatient HD arranged for [facility] - Renal plan d/w Dr Bedoya Subjective Date of service: 10/31/18 Principal diagnosis: anemia Interval history: Pt seen in ICU, nonverbal, doesn't follow commands, no family at bedside Objective - Vital Signs Vital signs: Vital Signs - 12hr 10/31/18 10/31/18 10/31/18 01:00 01:25 01:30 Temperature Pulse Rate 93 H 93 H Pulse Rate [ 93 H From Monitor] Respiratory 22 17 17 Rate Blood Pressure 105/61 112/63 O2 Sat by Pulse 100 100 97 Oximetry 10/31/18 10/31/18 10/31/18 02:00 02:30 03:00 Temperature Pulse Rate 93 H 93 H 93 H Pulse Rate [ From Monitor] Respiratory 18 19 18 Rate Blood Pressure 118/68 113/71 116/66 O2 Sat by Pulse 92 100 99 Oximetry 10/31/18 10/31/18 10/31/18 03:25 03:30 03:44 Temperature 98.8 F Pulse Rate 91 H 91 H Pulse Rate [ 93 H From Monitor] Respiratory 17 17 Rate Blood Pressure 107/66 O2 Sat by Pulse 100 100 Oximetry 10/31/18 10/31/18 10/31/18 04:00 04:30 05:00 Temperature Pulse Rate 91 H 92 H 96 H Pulse Rate [ From Monitor] Respiratory 15 17 17 Rate Blood Pressure 103/61 107/61 105/63 O2 Sat by Pulse 100 100 99 Oximetry 10/31/18 10/31/18 10/31/18 05:30 05:42 06:00 Temperature Pulse Rate 98 H 91 H 100 H Pulse Rate [ 99 H From Monitor] Respiratory 14 17 16 Rate Blood Pressure 108/67 105/64 O2 Sat by Pulse 100 100 99 Oximetry 10/31/18 10/31/18 10/31/18 06:30 08:03 08:55 Temperature Pulse Rate 97 H Pulse Rate [ From Monitor] Respiratory 16 Rate Blood Pressure 108/66 O2 Sat by Pulse 100 98 99 Oximetry - General Appearance General appearance: other (nonverbal, doesn't follow commands) EENT: ATNC Neck: no JVD Respiratory: Present: Decreased Breath Sounds Cardiology: regular, S1S2, other (ACCESS: Right IJ Perm Catheter intact) Gastrointestinal: normoactive bowel sounds (Dobhoff tube in place) Integumentary: other (skin lesions/rash to BLE) Neurologic: other (nonverbal, doesn't follow commands) Musculoskeletal: other (no edema to BLE) - Lab 10/29/18 00:56 10/29/18 13:25 Most recent lab results Calcium 8.6 mg/dL (8.4-10.2) 10/29/18 13:25 Phosphorus 5.30 mg/dL (2.5-4.5) H D 10/23/18 05:24 Magnesium 1.90 mg/dL (1.7-2.3) 10/28/18 05:58 196.7 mg/dL (0.1-20.0) H 10/21/18 18:19 12 mmol/L 10/17/18 13:34 191 mg/dL (5-11.8) H 10/17/18 13:16 Medications & Allergies - Medications Allergies/Adverse Reactions: Allergies NSAIDS (Non-Steroidal Anti-Inflamma Adverse Reaction (Verified 01/02/17 05:56) Unknown Tetracyclines Adverse Reaction (Verified 09/26/14 12:09) Unknown Home Medications: Home Medications Medication Instructions Recorded Confirmed Last Taken Type Ergocalciferol [Vitamin D2] 50,000 unit PO QWEEK capsule 09/25/16 10/17/18 Unknown Rx Latanoprost 0.005% 1 drop OP QPM 01/02/17 10/17/18 Unknown History Sodium Bicarbonate 325 mg PO DAILY 01/02/17 10/17/18 Unknown History Clopidogrel [Plavix] 75 mg PO DAILY #30 tablet 01/08/17 10/17/18 Unknown Rx Docusate Sodium [Colace CAP] 100 mg PO BID #60 capsule 01/08/17 10/17/18 Unknown Rx Famotidine [Pepcid] 10 mg PO BID #60 tablet 01/08/17 10/17/18 Unknown Rx Gabapentin [Neurontin] 300 mg PO QHS #30 capsule 01/08/17 10/17/18 Unknown Rx Simvastatin [Zocor TAB] 20 mg PO QHS #60 tablet 01/08/17 10/17/18 Unknown Rx glipiZIDE [Glucotrol] 5 mg PO QDDIAB #60 tablet 01/08/17 10/17/18 Unknown Rx hydrALAZINE [Apresoline TAB] 10 mg PO Q8HR #90 tablet 01/08/17 10/17/18 Unknown Rx levETIRAcetam [Keppra TAB] 500 mg PO BID #60 tablet 01/08/17 10/17/18 Unknown Rx Active Medications: Generic Name Dose Route Start Last Admin Trade Name Freq PRN Reason Stop Dose Admin Acetaminophen 650 mg 10/29/18 15:49 10/29/18 16:46 Tylenol FEEDTUBE 650 mg Q6H PRN Administration Pain, Mild (1-3) Lipase/Protease/Amylase 1 each 10/25/18 09:18 10/28/18 09:[address] 10,500 Unit FEEDTUBE 1 each PRN PRN Administration For Clogged Feeding Tube Clopidogrel Bisulfate 75 mg 10/21/18 11:00 10/31/18 10:31 Plavix PO 75 mg QDAY ALLEY Administration Ergocalciferol 50,000 unit 10/24/18 10:00 10/31/18 10:31 Vitamin D2 PO 50,000 unit Sa ALLEY Administration Famotidine 20 mg 10/21/18 10:00 10/31/18 10:31 Pepcid PO 20 mg DAILY ALLEY Administration Gabapentin 300 mg 10/17/18 22:00 10/30/18 21:27 Neurontin PO 300 mg QHS ALLEY Administration Heparin Sodium (Porcine) 5,000 unit 10/29/18 11:30 10/31/18 10:31 Heparin SUB-Q 5,000 unit Q12HR ALLEY Administration Norepinephrine 8 mg/ Sodium 250 mls @ 3.75 mls/hr 10/28/18 18:00 Chloride IV TITR ALLEY Protocol 2 MCG/MIN Dobutamine HCl/Dextrose 500 mg in 250 mls @ 3.366 mls/hr 10/29/18 11:00 10/29/18 13:28 Dobutrex Drip 500mg/D5w 250ml IV 2 mcg/kg/min TITR ALLEY 3.366 mls/hr Administration Protocol 2 MCG/KG/MIN Phenylephrine HCl 100 mg/ 100 mls @ 6 mls/hr 10/29/18 10:30 10/31/18 03:25 Sodium Chloride IV 25 mcg/min TITR [place] 1.5 mls/hr Titration Protocol 100 MCG/MIN Cefepime HCl 0.5 gm/ Sodium 100 mls @ 200 mls/hr 10/29/18 14:00 10/30/18 13:27 Chloride IV 10/31/18 23:59 200 mls/hr Q24H ALLEY Administration Protocol Sodium Chloride 100 mls @ 999 mls/hr 10/30/18 12:00 Nacl 0.9% IV LESLIE PRN Hypotension Insulin Glargine 5 units 10/31/18 22:00 Lantus SUB-Q QHS ALLEY Insulin Human Lispro 0 unit 10/24/18 12:00 10/31/18 05:56 Humalog SUB-Q 2 unit Q6HR ALLEY Administration Protocol Latanoprost 1 drops 10/17/18 18:00 10/30/18 18:11 Latanoprost 0.005% OU Not Given QPM [facility] Levetiracetam 500 mg 10/21/18 10:00 10/31/18 10:31 Keppra PO 500 mg BID ALLEY Administration Simple Syrup 15 ml 10/25/18 09:18 Simple Syrup FEEDTUBE PRN PRN Hypoglycemia Simple Syrup 30 ml 10/25/18 09:18 Simple Syrup FEEDTUBE PRN PRN Hypoglycemia Sodium Bicarbonate 325 mg 10/17/18 17:00 10/31/18 10:31 Sodium Bicarbonate PO 325 mg DAILY ALLEY Administration Sodium Bicarbonate 325 mg 10/25/18 09:18 Sodium Bicarbonate FEEDTUBE PRN PRN For Clogged Feeding Tube
[2018-10-31] MEDS: MAXIPIME 0.5 GM in NACL 0.9% 100 ML IV SCH (13:56)
--- NOTE | 2018-10-31 14:48 | Progress Note ---
Assessment and Plan Cultures: 10/17/2018 urine culture: No growth 10/23/2018 and blood culture: No growth 10/26/2018 blood culture: no growth A/P: 63-year-old female who was admitted to the hospital on 10/17/2018 with altered mental status. She has a history of hypertension, diabetes mellitus type 2, CVA, dementia, CAD status post CABG, CKD stage IV. Upon evaluation in the ER, she was found to have worsening renal function requiring urgent hemodialysis: 1) Isolated fevers: Improved, 2 episodes so far throughout the hospitalization. Blood cultures have remained negative. No evidence of pneumonia. Chest x-ray shows bilateral pleural effusions. She does not appear to have any respiratory distress. Wounds are quite superficial and do not appear to be infected. A central fever is quite possible. Given hypotension / shock, persistent low grade fevers with leucocytosis, will stop empiric antibiotics today given improvement. 2) Bilateral CVA: ?cardioembolic stroke. Low EF of 5-10%, EDINSON negative for thrombus or vegetation. 3) ARF / ESRD: on hemodialysis. Recs: Stop empiric antibiotics today no evidence of infectious process found suspect ?central fever as well as cardiogenic shock/global ischemia/hypoperfusion overall poor prognosis, discussed with sister at bedside Lalito Emanuel MD [facility] M: [phone] O: [phone] F: [phone] Subjective Date of service: 10/31/18 Principal diagnosis: Ac on chr encephalopathy; Hypotension; ESRD on Dialysis; HFrEF; DM II; GERD Interval history: Remains drowsy, not responsive. Objective - Exam Narrative Exam: Physical Exam: Constitutional: no distress, non verbal, doesn't follow commands Head, Ears, Nose: Normocephalic, atraumatic. External ears, nose normal Eyes: Conjunctivae/corneas clear. No icterus. No ptosis. Neck: Supple, no meningeal signs Oral: Unable to examine Cardiovascular: S1, S2 normal. Respiratory: Good air entry, clear to auscultation bilaterally GI: Soft, non-tender; bowel sounds normal. No peritoneal signs Musculoskeletal: No pedal edema, no cyanosis. Skin: No rash or abscess. Multiple hyperpigmented spots, ?early calciphylaxis. Superficial wounds on legs, with dressings Hem/Lymphatic: No palpable cervical or supraclavicular nodes. No lymphangitis Psych: no agitation Neurological: drowsy, non verbal, non communicative - Constitutional Vitals: Vital Signs Temp Pulse Resp BP Pulse Ox 97.5 F L 104 H 15 92/58 99 10/31/18 12:00 10/31/18 13:30 10/31/18 13:30 10/31/18 13:30 10/31/18 13:30 Temperature -Last 24 Hours Temperature 97.5 F Temperature 98.8 F Temperature 98.8 F Temperature 98.4 F Temperature 98.3 F Temperature 97.9 F Temperature 98.4 F - Labs CBC & Chem 7: 10/29/18 00:56 10/29/18 13:25 Labs: Abnormal lab results 10/30/18 10/30/18 10/31/18 Range/Units 18:08 23:31 05:26 POC Glucose 232 H 247 H 174 H (70-105) 10/31/18 Range/Units 12:09 POC Glucose 263 H (70-105)
--- NOTE | 2018-10-31 15:01 | Progress Note ---
Assessment and Plan Assessment and plan: Patient is a 63 yo woman with hypertension, dm type 2, gerd, cva, dementia, cad s/p cabg, seizure disorder, OA and CKD 4 (last Cr here was 2.2 on 01/08/2017) who presented to [facility] ED with AMS x 3 days. She was admitted for severe renal failure/uremic encephalopathy with hyperkalemia. Creatinine was found to be 5.6. She underwent emergent Hemodialysis * CT head without contrast IMPRESSION: 1. Recent infarcts in the left MCA and left CLERICAL ASSOCIATE territories. Although there is no volume loss associated with CLERICAL ASSOCIATE infarct, the hypoattenuation of the parenchyma and loss of laboy-white differentiation is more conspicuous, suggesting this may be an older infarct. 2. No acute hemorrhage. Report of these findings was called to Dr. Novak in the emergency department at the time of dictation. * pCXR Impression: Increasing right basilar effusion/volume loss * 10/21/2017 [place] Conclusions: Left ventricular chamber size is severely dilated, global left ventricular systolic function is severely decreased, estimated EF is 10-15%, RVSF is severely reduced, No ASD, no endocarditis or cardioembolic source * MRI brain without contrast BRAIN / INTRACRANIAL CONTENTS: Multiple ischemic areas seen - the larger areas were seen on recent CT. Branch MCA infarct seen in the middle and inferior frontal gyral region on the left. Branch CLERICAL ASSOCIATE infarct seen on the left, including calcarine cortex. Small focus of ischemia seen in the left precuneus. There are small foci of ischemia seen in the superior frontal gyrus and paracentral lobule regions on the right, superiorly. Minimal involvement of the genu/rostrum of the corpus callosum is suggested. Punctate involvement seen in the right parietal temporal region. Other, scattered, punctate areas of ischemia may be present as well. Because of these findings, embolic phenomena should be considered. Otherwise, no acute hemorrhage, mass effect, midline shift, hydrocephalus, or acute, large territorial infarct. No chronic infarct or atrophy. Lacunar infarcts suggested in the thalamic regions. There are moderate areas of increased signal intensity on FLAIR imaging in the white matter of the cerebral hemispheres, as well as the gangliocapsular regions. These are nonspecific findings and may be related to microangiopathy (hypertension, diabetes, atherosclerosis), given the patient's age. CRANIOCERVICAL JUNCTION: No significant abnormality. VASCULAR FLOW-VOIDS: No significant abnormality. ORBITS: No significant abnormality of visualized orbits. SINUSES / MASTOIDS: There is mild mucosal thickening with the ethmoids. ADDITIONAL FINDINGS: None. IMPRESSION: 1. Multiple areas of ischemia as described above, worrisome for embolic phenomenon. No evidence of hemorrhagic transformation at this time. * 10/27/2018 CT brain without Impression: IMPRESSION: No acute intracranial proce ss. Evolving ischemic infarcts in the left frontal lobe and left occipital lobe as described. * US chest Impression: Small bilateral pleural effusions AMS most likely due to Acute Embolic Ischemic Strokes/CVA: supportive care, poor prognosis Cardiogenic Shock: give another bolus and move to ICU restart Vasopressor Cardiomyopathy, EF 10-15% Acute metabolic encephalopathy, poa:work up in process ARF/CKD 4 vasomotor +ATN: hemodialysis started Hyperkalemia: treated with HD, Interior Design Teacher following, monitor bmp closely Glaucoma: continue latanoprost eyedrops Vitamin D deficiency: Continue vitamin D Hyperlipidemia: Continue statins Peripheral neuropathy: Continue gabapentin Seizure disorder: Continue Keppra Hypertension: Continue antihypertensives DVT prophylaxis: heparin and GI prophylaxis , now DNR Disposition: continue inpatient care, was going to SNF but spiked a temp of 101 F on 10/26/18 at 0438 am, this is her second temperature spike, first temp was 10/24/18 @ 0800am of 100.8F. repeat Blood cultures pending, pCXR Impression: Increasing right basilar effusion/volume loss, UA not done because she doesn't make enough urine, She still has thomas and NGT in place. 10/27/18: Consulted ID because patient does have a line and spiking fevers 10/28/18: Unable to do HD due to AMS and patient is Hypotensive, really did not respond to 500 ml ns ivf resuscitative bolus. Will transfer back to ICU. Still with low grade temp of 100.2 F then later 100.3 F I called sister Danay [phone], discussed Hospice, but her main concern is stopping Hemodialysis in Hospice care. She received another bolus of 500 ml 10/29/18: Still hypotensive, left hand peripheral IV; therefore, will need central line for vasopressor, bp too low for Hemodialysis on MWF schedule. Also, NGT still in place 10/30/18: on Neosyn and dobutamine gtt, HD done with vasopressors, Family has decided to make her DNR, which is a good option considers her poor roasterman prognosis. 10/31/18: still on Neosyn vasopressor and dobutamine gtt. still bp too low for HD without assistance, I called sister Danay to give her the update, wants family meeting, d/w Dr. Diloln, to defer Dr. Monsalve for Friday family meeting. poor prognosis CCT 32 minutes History Interval history: Patient was seen and examined. Follow-up on current diagnosis of CVA. No ov ernight events reported to me. Patient is nonverbal. Imaging, nursing note, chart, labs and old chart reviewed. Hospitalist Physical - Physical exam Narrative exam: Gen: ill appearing, chronically disable appearing, eyes open, chronically non- verbal HEENT: NCAT, EOMI, PERRL, OP Clear Neck: supple, no adenopathy, no thyromegaly, no JVD CVS/Heart: RRR, normal S1S2, pulses present bilaterally Chest/Lungs: CTA B, Symmetrical chest expansion, good air entry bilaterally GI/Abdomen: soft, NTND, good bowel sounds, no guarding or rebound /Bladder: no suprapubic tenderness, no CVA or paraspinal tenderness Extermity/Skin: diffuse hyperpigmented coin lichenification lesion MSK: not following commands Neuro: not following commands Psych: lethargic - Constitutional Vitals: Temp Pulse Resp BP Pulse Ox 97.5 F L 103 H 14 92/55 100 10/31/18 12:00 10/31/18 14:30 10/31/18 14:30 10/31/18 14:30 10/31/18 14:30 General appearance: Present: no acute distress Results - Labs CBC & Chem 7: 10/29/18 00:56 10/29/18 13:25 Labs: Laboratory Last Values WBC 12.5 K/mm3 (4.5-11.0) H 10/29/18 00:56 RBC 2.82 M/mm3 (3.65-5.03) L 10/29/18 00:56 Hgb 8.6 gm/dl (10.1-14.3) L 10/29/18 00:56 Hct 26.5 % (30.3-42.9) L 10/29/18 00:56 MCV 94 fl (79-97) 10/29/18 00:56 MCH 31 pg (28-32) 10/29/18 00:56 MCHC 33 % (30-34) 10/29/18 00:56 RDW 16.2 % (13.2-15.2) H 10/29/18 00:56 Plt Count 256 K/mm3 (140-440) 10/29/18 00:56 Lymph % (Auto) 7.1 % (13.4-35.0) L 10/29/18 00:56 [place] % (Auto) 9.7 % (0.0-7.3) H 10/29/18 00:56 Eos % (Auto) 0.8 % (0.0-4.3) 10/29/18 00:56 Baso % (Auto) 0.6 % (0.0-1.8) 10/29/18 00:56 Lymph # 0.9 K/mm3 (1.2-5.4) L 10/29/18 00:56 [place] # 1.2 K/mm3 (0.0-0.8) H 10/29/18 00:56 Eos # 0.1 K/mm3 (0.0-0.4) 10/29/18 00:56 Baso # 0.1 K/mm3 (0.0-0.1) 10/29/18 00:56 Add Manual Diff Complete 10/24/18 04:50 Total Counted 100 10/24/18 04:50 Seg Neutrophils % 81.8 % (40.0-70.0) H 10/29/18 00:56 Seg Neuts % (Manual) 79.0 % (40.0-70.0) H 10/24/18 04:50 4.0 % 10/24/18 04:50 11.0 % (13.4-35.0) L 10/24/18 04:50 Reactive Lymphs % (Man) 0 % 10/24/18 04:50 6.0 % (0.0-7.3) 10/24/18 04:50 0 % (0.0-4.3) 10/24/18 04:50 0 % (0.0-1.8) 10/24/18 04:50 0 % 10/24/18 04:50 0 % 10/24/18 04:50 0 % 10/24/18 04:50 0 % 10/24/18 04:50 Nucleated RBC % Not Reportable 10/24/18 04:50 Seg Neutrophils # 10.2 K/mm3 (1.8-7.7) H 10/29/18 00:56 Seg Neutrophils # Man 8.7 K/mm3 (1.8-7.7) H 10/24/18 04:50 Band Neutrophils # 0.4 K/mm3 10/24/18 04:50 1.2 K/mm3 (1.2-5.4) 10/24/18 04:50 Abs React Lymphs (Man) 0.0 K/mm3 10/24/18 04:50 0.7 K/mm3 (0.0-0.8) 10/24/18 04:50 0.0 K/mm3 (0.0-0.4) 10/24/18 04:50 0.0 K/mm3 (0.0-0.1) 10/24/18 04:50 0.0 K/mm3 10/24/18 04:50 0.0 K/mm3 10/24/18 04:50 0.0 K/mm3 10/24/18 04:50 Blast Cells # 0.0 K/mm3 10/24/18 04:50 Pathologist Review 10/24/18 04:50 WBC Morphology Not Reportable 10/23/18 05:24 Hypersegmented Neuts Not Reportable 10/24/18 04:50 Hyposegmented Neuts Not Reportable 10/24/18 04:50 Hypogranular Neuts Not Reportable 10/24/18 04:50 Few 10/24/18 04:50 Not Reportable 10/24/18 04:50 Not Reportable 10/24/18 04:50 Not Reportable 10/24/18 04:50 Not Reportable 10/24/18 04:50 Not Reportable 10/24/18 04:50 Consistent w auto 10/24/18 04:50 Not Reportable 10/24/18 04:50 Plt Clumps, EDTA Not Reportable 10/24/18 04:50 Not Reportable 10/24/18 04:50 Not Reportable 10/24/18 04:50 Not Reportable 10/24/18 04:50 Plt Morphology Comment Not Reportable 10/24/18 04:50 RBC Morphology Not Reportable 10/24/18 04:50 Dimorphic RBCs Not Reportable 10/24/18 04:50 Not Reportable 10/24/18 04:50 Few 10/24/18 04:50 Not Reportable 10/24/18 04:50 1+ 10/24/18 04:50 Not Reportable 10/24/18 04:50 1+ 10/24/18 04:50 Not Reportable 10/24/18 04:50 Not Reportable 10/24/18 04:50 Not Reportable 10/24/18 04:50 Rare 10/24/18 04:50 Not Reportable 10/24/18 04:50 Few 10/24/18 04:50 Not Reportable 10/24/18 04:50 Not Reportable 10/24/18 04:50 Not Reportable 10/24/18 04:50 3+ 10/24/18 04:50 Not Reportable 10/24/18 04:50 Not Reportable 10/24/18 04:50 Not Reportable 10/24/18 04:50 Acanthocytes (Spur) Not Reportable 10/24/18 04:50 Rouleaux Not Reportable 10/24/18 04:50 Not Reportable 10/24/18 04:50 Not Reportable 10/24/18 04:50 Not Reportable 10/24/18 04:50 Not Reportable 10/24/18 04:50 Hem Pathologist Commnt Sent to pathology 10/24/18 04:50 PT 20.6 Sec. (12.2-14.9) H 10/17/18 10:19 INR 1.81 (0.87-1.13) H 10/17/18 10:19 APTT 35.6 Sec. (24.2-36.6) 10/17/18 10:19 18.7 Sec. (15.1-19.6) 10/17/18 10:19 Heparin Anti-Xa, Unfract Negative (Negative) 10/19/18 08:34 POC ABG pH 7.436 (7.35-7.45) 10/23/18 20:51 POC ABG pCO2 34.3 (35-45) L 10/23/18 20:51 POC ABG pO2 95 (80-105) 10/23/18 20:51 POC ABG HCO3 23.1 (22-26 mml/L) 10/23/18 20:51 POC ABG Total CO2 24 (23-27mmol/L) 10/23/18 20:51 POC ABG O2 Sat 98 10/23/18 20:51 POC ABG Base Excess -1 ((-2) - (+3)mmol/L) 10/23/18 20:51 24 % 10/23/18 20:51 Sodium 134 mmol/L (137-145) L 10/29/18 13:25 Potassium 4.1 mmol/L (3.6-5.0) 10/29/18 13:25 Chloride 90.8 mmol/L (98-107) L 10/29/18 13:25 Carbon Dioxide 27 mmol/L (22-30) 10/29/18 13:25 20 mmol/L 10/29/18 13:25 BUN 75 mg/dL (7-17) H 10/29/18 13:25 6.5 mg/dL (0.7-1.2) H 10/29/18 13:25 Estimated GFR 8 ml/min 10/29/18 13:25 12 % 10/29/18 13:25 Glucose 251 mg/dL (65-100) H 10/29/18 13:25 POC Glucose 263 (70-105) H 10/31/18 12:09 Lactic Acid 1.30 mmol/L (0.7-2.0) 10/23/18 14:59 Calcium 8.6 mg/dL (8.4-10.2) 10/29/18 13:25 Phosphorus 5.30 mg/dL (2.5-4.5) H D 10/23/18 05:24 Magnesium 1.90 mg/dL (1.7-2.3) 10/28/18 05:58 Iron 55 ug/dL (37-170) 10/19/18 08:34 TIBC 193 mcg/dL (250-450) L 10/19/18 08:34 2450.0 ng/mL (13.0-400.0) H 10/19/18 08:34 0.50 mg/dL (0.1-1.2) 10/26/18 06:13 AST 36 units/L (5-40) 10/26/18 06:13 ALT 18 units/L (7-56) 10/26/18 06:13 251 units/L (35-129) H 10/26/18 06:13 28.0 umol/L (25-60) 10/26/18 19:36 458 units/L (91-180) H 10/26/18 06:13 3216 units/L (30-135) H 10/17/18 15:15 4.720 ng/mL (0.00-0.029) H* 10/17/18 Unknown 24.10 mg/dL (0.00-1.30) H 10/23/18 14:59 5.5 g/dL (6.1-8.1) L 10/20/18 05:07 5.9 g/dL (6.3-8.2) L 10/26/18 06:13 3.0 g/dL (3.9-5) L 10/26/18 06:13 1.0 % 10/26/18 06:13 0.4 g/dL (0.2-0.3) H 10/20/18 05:07 0.9 g/dL (0.5-0.9) 10/20/18 05:07 0.3 g/dL (0.2-0.5) 10/20/18 05:07 0.8 g/dL (0.8-1.7) 10/20/18 05:07 Abnorm Protein Band 1 see below 10/20/18 05:07 PEP Interpretation see below H 10/20/18 05:07 Triglycerides 102 mg/dL (2-149) 10/17/18 Unknown Cholesterol 198 mg/dL (50-199) 10/17/18 Unknown 116 mg/dL (50-130) 10/17/18 Unknown 88 mg/dL (40-59) H 10/17/18 Unknown 2.25 % 10/17/18 Unknown See scanned result 10/19/18 08:34 Vitamin B12 1296 pg/mL (211-911) H 10/19/18 08:34 8.42 ng/mL (7.3-26.0) 10/19/18 08:34 TSH 1.030 mlU/mL (0.270-4.200) 10/17/18 Unknown Free T4 1.26 ng/dL (0.76-1.46) 10/17/18 Unknown Yellow (Yellow) 10/17/18 11:25 Slightly-cloudy (Clear) 10/17/18 11:25 5.0 (5.0-7.0) 10/17/18 11:25 Ur Specific [place] 1.019 (1.003-1.030) 10/17/18 11:25 100 mg/dl mg/dL (Negative) 10/17/18 11:25 150 mg/dL (Negative) 10/17/18 11:25 Tr mg/dL (Negative) 10/17/18 11:25 Sm (Negative) 10/17/18 11:25 Neg (Negative) 10/17/18 11:25 Neg (Negative) 10/17/18 11:25 < 2.0 mg/dL (<2.0) 10/17/18 11:25 Ur Leukocyte Esterase Tr (Negative) 10/17/18 11:25 3.0 /HPF (0.0-6.0) 10/17/18 11:25 2.0 /HPF (0.0-6.0) 10/17/18 11:25 Few /HPF 10/17/18 11:25 None seen (None Seen) 10/17/18 13:16 60 ml 10/21/18 18:19 196.7 mg/dL (0.1-20.0) H 10/21/18 18:19 Ur Creatinine 24 Hour 0.1 (0.8-2.8) L 10/21/18 18:19 Height (in) 62.0 inches 10/20/18 13:45 Weight (lb) 126.5 lbs 10/20/18 13:45 3 10/20/18 13:45 Protein/Creatinin Ratio 0.69 10/17/18 13:16 12 mmol/L 10/17/18 13:34 191 mg/dL (5-11.8) H 10/17/18 13:16 Salicylates < 0.3 mg/dL (2.8-20.0) L 10/17/18 Unknown Acetaminophen < 5.0 ug/mL (10.0-30.0) L 10/17/18 Unknown Plasma/Serum Alcohol < 0.01 % (0-0.07) 10/17/18 Unknown Immunofix Electrophor see below 10/20/18 05:07 Heparin-induced Plt Ab Negative (Negative) 10/19/18 08:34 UF Heparin High Dose 0 % Release 10/19/18 08:34 KAILYN UFH Low Dose 0.1 0 % Release 10/19/18 08:34 KAILYN UFH Low Dose 0.5 0 % Release 10/19/18 08:34 Hepatitis A IgM Ab Non-reactive (NonReactive) 10/17/18 15:15 Hep Bs Antigen Non-reactive (Negative) 10/17/18 15:15 Hep B Core IgM Ab Non-reactive (NonReactive) 10/17/18 15:15 Non-reactive (NonReactive) 10/17/18 15:15 Rare 10/17/18 15:43 Flexitest 1 10/20/18 10:53 Active Medications - Current Medications Current Medications: Generic Name Dose Route Start Last Admin Trade Name Freq PRN Reason Stop Dose Admin Acetaminophen 650 mg 10/29/18 15:49 10/29/18 16:46 Tylenol FEEDTUBE 650 mg Q6H PRN Administration Pain, Mild (1-3) Lipase/Protease/Amylase 1 each 10/25/18 09:18 10/28/18 09:[address] 10,500 Unit FEEDTUBE 1 each PRN PRN Administration For Clogged Feeding Tube Clopidogrel Bisulfate 75 mg 10/21/18 11:00 10/31/18 10:31 Plavix PO 75 mg QDAY ALLEY Administration Ergocalciferol 50,000 unit 10/24/18 10:00 10/31/18 10:31 Vitamin D2 PO 50,000 unit ALLEY Administration Famotidine 20 mg 10/21/18 10:00 10/31/18 10:31 Pepcid PO 20 mg DAILY ALLEY Administration Gabapentin 300 mg 10/17/18 22:00 10/30/18 21:27 Neurontin PO 300 mg QHS ALLEY Administration Heparin Sodium (Porcine) 5,000 unit 10/29/18 11:30 10/31/18 10:31 Heparin SUB-Q 5,000 unit Q12HR ALLEY Administration Norepinephrine 8 mg/ Sodium 250 mls @ 3.75 mls/hr 10/28/18 18:00 Chloride IV TITR ALLEY Protocol 2 MCG/MIN Dobutamine HCl/Dextrose 500 mg in 250 mls @ 3.366 mls/hr 10/29/18 11:00 10/31/18 14:00 Dobutrex Drip 500mg/D5w 250ml IV 5 mcg/kg/min TITR ALLEY 8.415 mls/hr Titration Protocol 2 MCG/KG/MIN Phenylephrine HCl 100 mg/ 100 mls @ 6 mls/hr 10/29/18 10:30 10/31/18 14:00 Sodium Chloride IV 0 mcg/min TITR ALLEY 0 mls/hr Titration Protocol 100 MCG/MIN Cefepime HCl 0.5 gm/ Sodium 100 mls @ 200 mls/hr 10/29/18 14:00 10/31/18 13:56 Chloride IV 10/31/18 23:59 200 mls/hr Q24H ALLEY Administration Protocol Sodium Chloride 100 mls @ 999 mls/hr 10/30/18 12:00 Nacl 0.9% IV LESLIE PRN Hypotension Insulin Glargine 5 units 10/31/18 22:00 Lantus SUB-Q QHS ALLEY Insulin Human Lispro 0 unit 10/24/18 12:00 10/31/18 12:54 Humalog SUB-Q 4 unit Q6HR ALLEY Administration Protocol Latanoprost 1 drops 10/17/18 18:00 10/30/18 18:11 Latanoprost 0.005% OU Not Given QPM ALLEY Levetiracetam 500 mg 10/21/18 10:00 10/31/18 10:31 Keppra PO 500 mg BID ALLEY Administration Midodrine 10 mg 10/31/18 16:00 Proamatine PO TID@0800,1200,1600 ALLEY Simple Syrup 15 ml 10/25/18 09:18 Simple Syrup FEEDTUBE PRN PRN Hypoglycemia Simple Syrup 30 ml 10/25/18 09:18 Simple Syrup FEEDTUBE PRN PRN Hypoglycemia Sodium Bicarbonate 325 mg 10/17/18 17:00 10/31/18 10:31 Sodium Bicarbonate PO 325 mg DAILY ALLEY Administration Sodium Bicarbonate 325 mg 10/25/18 09:18 Sodium Bicarbonate FEEDTUBE PRN PRN For Clogged Feeding Tube Nutrition/Malnutrition Assess - Dietary Evaluation Nutrition/Malnutrition Findings: Nutrition Notes Start: 10/18/18 14:28 Freq: Status: Active Protocol: Document 10/29/18 14:05 RM (Rec: 10/29/18 14:12 RM [id number]) Nutrition Notes Initial or Follow up Reassessment Current Diagnosis Acute Kidney Injury,CKD(stage I-IV),Coronary Artery Disease, Diabetes,Hypertension,Heart Failure,Stroke,Hyperlipidemia Other Pertinent Diagnosis Dementia Current Diet Nepro at 30 ml/hr Labs/Tests Na 134 K 3.9 Cr 6.5 Pertinent Medications Reviewed Height 5 ft 2 in Weight 56.1 kg [place] Body Weight (kg) 50.00 BMI 22.6 Subjective/Other Information Procedure being done in room at time of visit. Per nurse Nepro is infusing at 15 ml/hr and she plans to advance it to goal rate. Percent of energy/protein needs met: 48%/50% Burn Absent Trauma Absent #2 Nutrition Diagnosis Malnutrition Diagnosis Progress(for reassessment Continues documentation) #1 Nutrition Diagnosis Inadequate oral intake Diagnosis Progress(for reassessment Continues documentation) Is patient on ventilator? No Is Patient Ambulatory and/or Out of Bed No REE-([place]-St. Jeor-confined to bed) 1288.476 Kcal/Kg value to use for calculation 24 Approximate Energy Requirements Using 1346 kcal/Kg Calculation Used for Recommendations [place]-St Jeor Additional Notes Protein Needs: 69-86g(1.2-1.5g /kg) Fluid Needs: 1 ml/kcal Nutrition Intervention Nutrition Support: Nepro at 30ml/hr Flush with 120ml q4h Kcal 1,296 Protein (gm) 58 Fluid (mL) 523 Goal #1 TF tolerance Goal #2 Meet at least 80% of kcal and protein needs via TF Anticipated Discharge Needs: Unable to determine at this time Follow-Up By: 11/02/18 Additional Comments Follow for TF tolerance
[2018-10-31] MEDS: PROAMATINE PO SCH (15:42)
[2018-10-31] MEDS: LATANOPROST 0.005% OU SCH ×2 (18:33→19:48)
[2018-10-31] MEDS: NEO-SYNEPHRINE 100 MG in NACL 0.9% 90 ML IV SCH (18:54)
[2018-10-31] MEDS: NEURONTIN PO SCH (21:33)
[2018-10-31] MEDS: LANTUS SUB-Q SCH (21:39)
[2018-11-01] MEDS: HumaLOG SUB-Q SCH ×4 (00:12→18:33)
[2018-11-01] MEDS: DOBUTREX DRIP 500MG/D5W 250ML 500 MG/250 ML BAG IV SCH (01:30)
[2018-11-01 05:24] LABS: Hematocrit 25.9 % (30.3-42.9); Hemoglobin 8.2 gm/dl (10.1-14.3); Mean Corpuscular HGB Conc 32 % (30-34); Mean Corpuscular Volume 97 fl (79-97); Red Blood Count 2.68 M/mm3 (3.65-5.03); Red Cell Distribution Width 16.7 % (13.2-15.2)
[2018-11-01 06:16] LABS: Platelet Count 307 K/mm3 (140-440)
[2018-11-01 06:43] LABS: Calcium 8.5 mg/dL (8.4-10.2)
[2018-11-01] MEDS: NEO-SYNEPHRINE 100 MG in NACL 0.9% 90 ML IV SCH ×2 (07:47→23:07)
[2018-11-01] MEDS: PLAVIX PO SCH (09:58)
[2018-11-01] MEDS: PROAMATINE PO SCH ×3 (09:58→17:23)
[2018-11-01] MEDS: SODIUM BICARBONATE PO SCH (09:58)
[2018-11-01] MEDS: HEPARIN SUB-Q SCH ×2 (09:59→21:49)
[2018-11-01] MEDS: KEPPRA PO SCH ×2 (10:00→21:46)
[2018-11-01] MEDS: PEPCID PO SCH (10:00)
--- NOTE | 2018-11-01 11:06 | Progress Note ---
Assessment and Plan Acute renal failure on chronic kidney disease, on HD AG metabolic acidosis Hyperkalemia Metabolic encephalopathy CVA - Renal function reviewed, SCr level was 5.3 today - No acute indication for HD today - Assess need for HD on daily basis - On Dobutamine and Phenylephrine drips for blood pressure support - Urine eosinophils were negative - Renal US negative for obstruction - Renally dose medications - Outpatient HD arranged for [facility] - Strict I&O - Scott Catheter: Yes - Intake= 1705 ml Output= 2120 ml ( Net= -414 ml) - Renal plan d/w Dr Bedoya Subjective Date of service: 11/01/18 Principal diagnosis: Ac on chr encephalopathy; Hypotension; ESRD on Dialysis; HFrEF; DM II; GERD Interval history: Pt seen in ICU, nonverbal, doesn't follow commands, no family at bedside Objective - Vital Signs Vital signs: Vital Signs - 12hr 10/31/18 10/31/18 10/31/18 23:15 23:18 23:20 Temperature Pulse Rate 99 H 98 H 107 H Pulse Rate [ 103 H From Monitor] Respiratory 20 18 16 Rate Blood Pressure 96/65 96/65 O2 Sat by Pulse 97 100 98 Oximetry 10/31/18 10/31/18 10/31/18 23:30 23:45 23:58 Temperature 98.9 F Pulse Rate 97 H 97 H Pulse Rate [ From Monitor] Respiratory 16 20 Rate Blood Pressure 96/65 95/63 O2 Sat by Pulse 100 100 Oximetry 11/01/18 11/01/18 11/01/18 00:00 00:15 00:30 Temperature Pulse Rate 97 H 99 H 97 H Pulse Rate [ From Monitor] Respiratory 12 18 18 Rate Blood Pressure 93/63 94/65 94/63 O2 Sat by Pulse 100 98 100 Oximetry 11/01/18 11/01/18 11/01/18 00:45 01:00 01:15 Temperature Pulse Rate 99 H 98 H 95 H Pulse Rate [ From Monitor] Respiratory 15 18 14 Rate Blood Pressure 101/65 96/66 100/66 O2 Sat by Pulse 100 99 100 Oximetry 11/01/18 11/01/18 11/01/18 01:30 01:45 02:00 Temperature Pulse Rate 86 89 94 H Pulse Rate [ 93 H From Monitor] Respiratory 14 12 20 Rate Blood Pressure 87/60 92/66 99/64 O2 Sat by Pulse 100 100 100 Oximetry 11/01/18 11/01/18 11/01/18 02:15 02:30 02:45 Temperature Pulse Rate 96 H 97 H 94 H Pulse Rate [ From Monitor] Respiratory 20 20 16 Rate Blood Pressure 97/69 105/66 102/68 O2 Sat by Pulse 100 100 100 Oximetry 11/01/18 11/01/18 11/01/18 03:00 03:15 03:28 Temperature 99.4 F Pulse Rate 95 H 96 H Pulse Rate [ From Monitor] Respiratory 22 18 Rate Blood Pressure 89/65 104/63 O2 Sat by Pulse 96 99 Oximetry 11/01/18 11/01/18 11/01/18 03:30 03:35 03:45 Temperature Pulse Rate 98 H 89 95 H Pulse Rate [ 93 H From Monitor] Respiratory 18 16 17 Rate Blood Pressure 100/66 101/64 O2 Sat by Pulse 100 98 100 Oximetry 11/01/18 11/01/18 11/01/18 04:00 04:15 04:30 Temperature Pulse Rate 96 H 96 H 98 H Pulse Rate [ From Monitor] Respiratory 16 21 23 Rate Blood Pressure 100/66 98/64 98/63 O2 Sat by Pulse 99 96 100 Oximetry 11/01/18 11/01/18 11/01/18 04:45 05:00 05:15 Temperature Pulse Rate 97 H 98 H 97 H Pulse Rate [ From Monitor] Respiratory 16 15 17 Rate Blood Pressure 106/67 98/61 94/60 O2 Sat by Pulse 99 100 98 Oximetry 11/01/18 11/01/18 11/01/18 05:19 05:30 05:45 Temperature Pulse Rate 97 H 96 H Pulse Rate [ From Monitor] Respiratory 16 14 14 Rate Blood Pressure 96/61 96/60 O2 Sat by Pulse 98 99 100 Oximetry 11/01/18 11/01/18 11/01/18 06:00 06:15 06:30 Temperature Pulse Rate 97 H 96 H 96 H Pulse Rate [ From Monitor] Respiratory 16 17 15 Rate Blood Pressure 100/61 97/63 99/66 O2 Sat by Pulse 100 100 100 Oximetry 11/01/1811/01/11/01/18 06:45 07:00 07:15 Temperature Pulse Rate 96 H 97 H 95 H Pulse Rate [ From Monitor] Respiratory 14 17 16 Rate Blood Pressure 98/63 100/62 92/62 O2 Sat by Pulse 99 100 100 Oximetry 08/18/19 08/18/19 08/18/19 07:30 07:45 07:57 Temperature Pulse Rate 94 H 94 H Pulse Rate [ From Monitor] Respiratory 16 17 Rate Blood Pressure 99/57 88/52 O2 Sat by Pulse 100 99 100 Oximetry 11/01/18 11/01/18 08:00 08:15 Temperature 97.6 F Pulse Rate 94 H 95 H Pulse Rate [ 96 H From Monitor] Respiratory 19 20 Rate Blood Pressure 102/54 96/60 O2 Sat by Pulse 100 100 Oximetry - General Appearance General appearance: other (nonverbal, doesn't follow commands) EENT: ATNC Neck: no JVD Respiratory: Present: Decreased Breath Sounds Cardiology: regular, S1S2, other (ACCESS: Right IJ Perm Catheter intact) Gastrointestinal: normoactive bowel sounds (dobhoff tube) Integumentary: other (skin lesions/rash noted BUE and BLE) Neurologic: other (pt nonverbal, doesn't follow commands) Musculoskeletal: other (trace edema to BLE) Psychiatric: other (unable to assess) - Lab 11/01/18 04:52 11/01/18 04:52 Most recent lab results Calcium 8.5 mg/dL (8.4-10.2) 11/01/18 04:52 Phosphorus 5.30 mg/dL (2.5-4.5) H D 10/23/18 05:24 Magnesium 1.90 mg/dL (1.7-2.3) 10/28/18 05:58 196.7 mg/dL (0.1-20.0) H 10/21/18 18:19 12 mmol/L 10/17/18 13:34 191 mg/dL (5-11.8) H 10/17/18 13:16 Medications & Allergies - Medications Allergies/Adverse Reactions: Allergies NSAIDS (Non-Steroidal Anti-Inflamma Adverse Reaction (Verified 01/02/17 05:56) Unknown Tetracyclines Adverse Reaction (Verified 09/26/14 12:09) Unknown Home Medications: Home Medications Medication Instructions Recorded Confirmed Last Taken Type Ergocalciferol [Vitamin D2] 50,000 unit PO QWEEK capsule 09/25/16 10/17/18 Unknown Rx Latanoprost 0.005% 1 drop OP QPM 01/02/17 10/17/18 Unknown History Sodium Bicarbonate 325 mg PO DAILY 10/19/17 08/03/19 Unknown History Clopidogrel [Plavix] 75 mg PO DAILY #30 tablet 01/08/17 10/17/18 Unknown Rx Docusate Sodium [Colace CAP] 100 mg PO BID #60 capsule 01/08/17 10/17/18 Unknown Rx Famotidine [Pepcid] 10 mg PO BID #60 tablet 01/08/17 10/17/18 Unknown Rx Gabapentin [Neurontin] 300 mg PO QHS #30 capsule 01/08/17 10/17/18 Unknown Rx Simvastatin [Zocor TAB] 20 mg PO QHS #60 tablet 01/08/17 10/17/18 Unknown Rx glipiZIDE [Glucotrol] 5 mg PO QDDIAB #60 tablet 01/08/17 10/17/18 Unknown Rx hydrALAZINE [Apresoline TAB] 10 mg PO Q8HR #90 tablet 01/08/17 10/17/18 Unknown Rx levETIRAcetam [Keppra TAB] 500 mg PO BID #60 tablet 01/08/17 10/17/18 Unknown Rx Active Medications: Generic Name Dose Route Start Last Admin Trade Name Freq PRN Reason Stop Dose Admin Acetaminophen 650 mg 10/29/18 15:49 10/29/18 16:46 Tylenol FEEDTUBE 650 mg Q6H PRN Administration Pain, Mild (1-3) Lipase/Protease/Amylase 1 each 10/25/18 09:18 10/28/18 09:[address] 10,500 Unit FEEDTUBE 1 each PRN PRN Administration For Clogged Feeding Tube Clopidogrel Bisulfate 75 mg 10/21/18 11:00 11/01/18 09:58 Plavix PO 75 mg QDAY ALLEY Administration Ergocalciferol 50,000 unit 10/24/18 10:00 10/31/18 10:31 Vitamin D2 PO 50,000 unit Sa ALLEY Administration Famotidine 20 mg 10/21/18 10:00 11/01/18 10:00 Pepcid PO 20 mg DAILY ALLEY Administration Gabapentin 300 mg 10/17/18 22:00 10/31/18 21:33 Neurontin PO 300 mg QHS ALLEY Administration Heparin Sodium (Porcine) 5,000 unit 10/29/18 11:30 11/01/18 09:59 Heparin SUB-Q 5,000 unit Q12HR ALLEY Administration Norepinephrine 8 mg/ Sodium 250 mls @ 3.75 mls/hr 10/28/18 18:00 Chloride IV TITR ALLEY Protocol 2 MCG/MIN Dobutamine HCl/Dextrose 500 mg in 250 mls @ 3.366 mls/hr 10/29/18 11:00 01:30 Dobutrex Drip 500mg/D5w 250ml IV 5 mcg/kg/min TITR ALLEY 8.415 mls/hr Administration Protocol 2 MCG/KG/MIN Phenylephrine HCl 100 mg/ 100 mls @ 6 mls/hr 10/29/18 10:30 11/01/18 08:30 Sodium Chloride IV 80 mcg/min TITR ALLEY 4.8 mls/hr Titration Protocol 100 MCG/MIN Sodium Chloride 100 mls @ 999 mls/hr 10/30/18 12:00 Nacl 0.9% IV LESLIE PRN Hypotension Insulin Glargine 5 units 10/31/18 22:00 10/31/18 21:39 Lantus SUB-Q 5 units QHS ALLEY Administration Insulin Human Lispro 0 unit 10/24/18 12:00 11/01/18 05:14 Humalog SUB-Q 4 unit Q6HR ALLEY Administration Protocol Latanoprost 1 drops 10/17/18 18:00 10/31/18 19:48 Latanoprost 0.005% OU 1 drops QPM ALLEY Administration Levetiracetam 500 mg 10/21/18 10:00 11/01/18 10:00 Keppra PO 500 mg BID ALLEY Administration Midodrine 10 mg 10/31/18 16:00 11/01/18 09:58 Proamatine PO 10 mg TID@0800,1200,1600 ALLEY Administration Simple Syrup 15 ml 10/25/18 09:18 Simple Syrup FEEDTUBE PRN PRN Hypoglycemia Simple Syrup 30 ml 10/25/18 09:18 Simple Syrup FEEDTUBE PRN PRN Hypoglycemia Sodium Bicarbonate 325 mg 10/17/18 17:00 11/01/18 09:58 Sodium Bicarbonate PO 325 mg DAILY ALLEY Administration Sodium Bicarbonate 325 mg 10/25/18 09:18 Sodium Bicarbonate FEEDTUBE PRN PRN For Clogged Feeding Tube
--- NOTE | 2018-11-01 12:29 | Progress Note ---
Assessment and Plan Acute on chronic encephalopathy. Hypotension (? Cardiogenic Shock component) End-stage renal disease, on dialysis. Acute hypoxemic respiratory failure. History of hypertension. Acute on chronic cerebrovascular accident. Coronary artery disease. Anemia Congestive heart failure with reduced ejection fraction. Diabetes. Gastroesophageal reflux disease. Arthritis. History of seizures. Dementia. Adult failure to thrive. Protein-calorie malnutrition, moderate. - continue midodrine at 10 mg tid acutely for BP support - reduce Dobutamine to 2.5 mics/kg/min - continue neosynephrine (wean for target MAP > 65 mmHg) - continue to wean vasopressors for MAP > 65 mmHg - consider stress steroid dosing (appears cardiogenic shock element now) - optimize heart failure measures per cardiology team - continue supportive HD/UF for toxin and volume clearance - Life vest per cardiology rec's - complete antibiotics per ID, de-escalate as indicated (cefepime) - Maintain sleep- wake cycle, prevent delirium - continue wound care, off loading as tolerated - prn Analgesia per pain score - continue accucheck's with glycemic control per SSI for target blood glucose 140-180 mg/dL - continue to avoid nephrotoxins, adjust medications for CrCL and GFR - continue VTE prophylaxis with heparin; monitor for bleeding - continue Stress ulcer prophylaxis with Pepcid - aspiration precautions - PT/OT/ROM exercises as tolerated - continue mobility protocols for pressure ulcer prophylaxis - continue other care per attending / other consultants ..... re-evaluate in am & prn CONDITION: CRITICAL PROGNOSIS: GUARDED CODE STATUS: DNR NOW The high probability of a clinically significant, sudden or life threatening deterioration of the [cardiovascular,endocrine, renal] system(s) required my ful l and direct attention, intervention and personal management. The aggregate critical care time was [32] minutes. This time is in addition to time spent performing reported procedures but includes the following: [x] Data Review and interpretation [x]Patient assessment and monitoring of vital signs [x] Documentation [x] Medication orders and management Subjective Date of service: 11/01/18 Principal diagnosis: Ac on chr encephalopathy; Hypotension; ESRD on Dialysis; HFrEF; DM II; GERD Interval history: Patient is seen today for: Ac on chr encephalopathy; Hypotension (? Cardiogenic Shock component); ESRD on Dialysis; Acute hypoxemic respiratory failure; H/O HTN; CAD; HFrEF; Diabetes type II; GERD; H/O seizures; Protein-calorie malnutrition, moderate. Seen and examined at bedside; 24hour events reviewed; nursing and respiratory care staff consulted; no adverse overnight events reported to me; resting peacefully in bed; AMS is persistent; RN resumed neosynephrine drip overnight and up to 120 mics/min; no new issues otherwise; no gross bleeding; No N/V/F/C Objective Vital Signs - 12hr 11/01/18 11/01/18 11/01/18 00:30 00:45 01:00 Temperature Pulse Rate 97 H 99 H 98 H Pulse Rate [ From Monitor] Respiratory 18 15 18 Rate Blood Pressure 94/63 101/65 96/66 O2 Sat by Pulse 100 100 99 Oximetry 11/01/18 11/01/18 11/01/18 01:15 01:30 01:45 Temperature Pulse Rate 95 H 86 89 Pulse Rate [ From Monitor] Respiratory 14 14 12 Rate Blood Pressure 100/66 87/60 92/66 O2 Sat by Pulse 100 100 100 Oximetry 11/01/18 11/01/18 11/01/18 02:00 02:15 02:30 Temperature Pulse Rate 94 H 96 H 97 H Pulse Rate [ 93 H From Monitor] Respiratory 20 20 20 Rate Blood Pressure 99/64 97/69 105/66 O2 Sat by Pulse 100 100 100 Oximetry 11/01/18 11/01/18 11/01/18 02:45 03:00 03:15 Temperature Pulse Rate 94 H 95 H 96 H Pulse Rate [ From Monitor] Respiratory 16 22 18 Rate Blood Pressure 102/68 89/65 104/63 O2 Sat by Pulse 100 96 99 Oximetry 11/01/18 11/01/18 11/01/18 03:28 03:30 03:35 Temperature 99.4 F Pulse Rate 98 H 89 Pulse Rate [ 93 H From Monitor] Respiratory 18 16 Rate Blood Pressure 100/66 O2 Sat by Pulse 100 98 Oximetry 11/01/18 11/01/18 11/01/18 03:45 04:00 04:15 Temperature Pulse Rate 95 H 96 H 96 H Pulse Rate [ From Monitor] Respiratory 17 16 21 Rate Blood Pressure 101/64 100/66 98/64 O2 Sat by Pulse 100 99 96 Oximetry 11/01/18 11/01/18 11/01/18 04:30 04:45 05:00 Temperature Pulse Rate 98 H 97 H 98 H Pulse Rate [ From Monitor] Respiratory 23 16 15 Rate Blood Pressure 98/63 106/67 98/61 O2 Sat by Pulse 100 99 100 Oximetry 11/01/18 11/01/18 11/01/18 05:15 05:19 05:30 Temperature Pulse Rate 97 H 97 H Pulse Rate [ From Monitor] Respiratory 17 16 14 Rate Blood Pressure 94/60 96/61 O2 Sat by Pulse 98 98 99 Oximetry 11/01/18 11/01/18 11/01/18 05:45 06:00 06:15 Temperature Pulse Rate 96 H 97 H 96 H Pulse Rate [ From Monitor] Respiratory 14 16 17 Rate Blood Pressure 96/60 100/61 97/63 O2 Sat by Pulse 100 100 100 Oximetry 11/01/18 11/01/18 11/01/18 06:30 06:45 07:00 Temperature Pulse Rate 96 H 96 H 97 H Pulse Rate [ From Monitor] Respiratory 15 14 17 Rate Blood Pressure 99/66 98/63 100/62 O2 Sat by Pulse 100 99 100 Oximetry 11/01/18 11/01/18 11/01/18 07:15 07:30 07:45 Temperature Pulse Rate 95 H 94 H 94 H Pulse Rate [ From Monitor] Respiratory 16 16 17 Rate Blood Pressure 92/62 99/57 88/52 O2 Sat by Pulse 100 100 99 Oximetry 11/01/18 11/01/18 11/01/18 07:57 08:00 08:15 Temperature 97.6 F Pulse Rate 94 H 95 H Pulse Rate [ 96 H From Monitor] Respiratory 19 20 Rate Blood Pressure 102/54 96/60 O2 Sat by Pulse 100 100 100 Oximetry 11/01/18 11/01/18 11/01/18 08:30 08:45 09:00 Temperature Pulse Rate 96 H 93 H 93 H Pulse Rate [ From Monitor] Respiratory 21 16 11 L Rate Blood Pressure 99/64 87/55 84/51 O2 Sat by Pulse 95 99 100 Oximetry 11/01/18 11/01/18 11/01/18 09:15 09:30 09:45 Temperature Pulse Rate 94 H 94 H 95 H Pulse Rate [ From Monitor] Respiratory 16 17 19 Rate Blood Pressure 85/52 85/53 87/51 O2 Sat by Pulse 100 100 96 Oximetry 11/01/18 11/01/18 11/01/18 10:00 10:15 10:30 Temperature Pulse Rate 97 H 96 H 98 H Pulse Rate [ From Monitor] Respiratory 18 13 18 Rate Blood Pressure 89/52 91/57 94/56 O2 Sat by Pulse 100 100 99 Oximetry 11/01/18 11/01/18 11/01/18 10:45 11:00 11:15 Temperature Pulse Rate 98 H 96 H 97 H Pulse Rate [ From Monitor] Respiratory 20 16 15 Rate Blood Pressure 88/50 84/50 88/56 O2 Sat by Pulse 100 100 100 Oximetry 11/01/18 11/01/18 11:30 11:45 Temperature Pulse Rate 96 H 95 H Pulse Rate [ From Monitor] Respiratory 18 13 Rate Blood Pressure 88/59 89/58 O2 Sat by Pulse 100 100 Oximetry Constitutional: no acute distress, asleep, other (elderly looking AAF, normocephalic abnd atraumatic resting peacefully in bed) Eyes: non-icteric ENT: oropharynx moist, other ([place] 2) Neck: supple, no lymphadenopathy, no JVD, other (no thyromegaly) Effort: mildly labored Ascultation: Bilateral: diminished breath sounds, rales (bases) Percussion: Bilateral: dull (bases) Cardiovascular: regular rate and rhythm, other (+ Systolic murmur) Gastrointestinal: normoactive bowel sounds, soft, non-tender, non-distended Integumentary: normal Extremities: no cyanosis, no edema, pulses normal, no ischemia or petechiae Neurologic: non-focal exam (grossly), unable to assess, other (encephalopathic) Psychiatric: other (unable to assess re: AMS) CBC and BMP: 11/01/18 04:52 11/01/18 04:52 ABG, PT/INR, D-dimer: ABG POC ABG pH 7.436 (7.35-7.45) 10/23/18 20:51 POC ABG pCO2 34.3 (35-45) L 10/23/18 20:51 POC ABG pO2 95 (80-105) 10/23/18 20:51 POC ABG HCO3 23.1 (22-26 mml/L) 10/23/18 20:51 POC ABG Total CO2 24 (23-27mmol/L) 10/23/18 20:51 POC ABG O2 Sat 98 10/23/18 20:51 PT/INR, D-dimer PT 20.6 Sec. (12.2-14.9) H 10/17/18 10:19 INR 1.81 (0.87-1.13) H 10/17/18 10:19 Abnormal lab findings: Abnormal Labs 10/17/18 10/17/18 10/17/18 10:16 10:19 10:19 WBC RBC Hgb Hct MCV RDW Plt Count Lymph % (Auto) 9.5 L [place] % (Auto) Lymph # 1.0 L [place] # Seg Neutrophils % 84.7 H Seg Neuts % (Manual) Lymphocytes % (Manual) Monocytes % (Manual) Nucleated RBC % Seg Neutrophils # 8.7 H Seg Neutrophils # Man Lymphocytes # (Manual) PT 20.6 H INR 1.81 H POC ABG pH POC ABG pCO2 POC ABG pO2 Sodium Potassium Chloride Carbon Dioxide BUN Creatinine Glucose POC Glucose 277 H Calcium Phosphorus TIBC Ferritin AST ALT Alkaline Phosphatase Lactate Dehydrogenase Total Creatine Kinase Troponin T C-Reactive Protein Serum Total Protein Total Protein Albumin Peqoh-1-Ohxvqmgqi PEP Interpretation HDL Cholesterol Vitamin B12 Urine Creatinine Ur Creatinine 24 Hour Urine Total Protein Salicylates Acetaminophen 10/17/18 10/17/18 10/17/18 13:14 13:16 13:34 WBC RBC Hgb Hct MCV RDW Plt Count Lymph % (Auto) [place] % (Auto) Lymph # [place] # Seg Neutrophils % Seg Neuts % (Manual) Lymphocytes % (Manual) Monocytes % (Manual) Nucleated RBC % Seg Neutrophils # Seg Neutrophils # Man Lymphocytes # (Manual) PT INR POC ABG pH POC ABG pCO2 POC ABG pO2 Sodium Potassium Chloride Carbon Dioxide BUN Creatinine Glucose POC Glucose 330 H Calcium Phosphorus TIBC Ferritin AST ALT Alkaline Phosphatase Lactate Dehydrogenase Total Creatine Kinase Troponin T C-Reactive Protein Serum Total Protein Total Protein Albumin Jnwkj-8-Maxlhikoj PEP Interpretation HDL Cholesterol Vitamin B12 Urine Creatinine 276.0 H 271.1 H Ur Creatinine 24 Hour Urine Total Protein 191 H Salicylates Acetaminophen 10/17/18 10/17/18 10/17/18 15:15 21:03 Unknown WBC RBC Hgb Hct MCV RDW Plt Count Lymph % (Auto) [place] % (Auto) Lymph # [place] # Seg Neutrophils % Seg Neuts % (Manual) Lymphocytes % (Manual) Monocytes % (Manual) Nucleated RBC % Seg Neutrophils # Seg Neutrophils # Man Lymphocytes # (Manual) PT INR POC ABG pH POC ABG pCO2 POC ABG pO2 Sodium Potassium 6.6 H* Chloride Carbon Dioxide 10 L BUN 111 H Creatinine 6.5 H Glucose 351 H POC Glucose 143 H Calcium Phosphorus TIBC Ferritin AST ALT Alkaline Phosphatase Lactate Dehydrogenase Total Creatine Kinase 3216 H Troponin T 4.720 H* C-Reactive Protein Serum Total Protein Total Protein Albumin Sacxa-4-Gxbgogtsp PEP Interpretation HDL Cholesterol 88 H Vitamin B12 Urine Creatinine Ur Creatinine 24 Hour Urine Total Protein Salicylates Acetaminophen 10/17/18 10/17/18 10/18/18 Unknown Unknown 07:29 WBC RBC Hgb Hct MCV RDW Plt Count Lymph % (Auto) [place] % (Auto) Lymph # [place] # Seg Neutrophils % Seg Neuts % (Manual) Lymphocytes % (Manual) Monocytes % (Manual) Nucleated RBC % Seg Neutrophils # Seg Neutrophils # Man Lymphocytes # (Manual) PT INR POC ABG pH POC ABG pCO2 POC ABG pO2 Sodium Potassium Chloride Carbon Dioxide BUN Creatinine Glucose POC Glucose 120 H Calcium Phosphorus TIBC Ferritin AST ALT Alkaline Phosphatase Lactate Dehydrogenase Total Creatine Kinase Troponin T C-Reactive Protein Serum Total Protein Total Protein Albumin Vnrxu-0-Pngdclcrk PEP Interpretation HDL Cholesterol Vitamin B12 Urine Creatinine Ur Creatinine 24 Hour Urine Total Protein Salicylates < 0.3 L Acetaminophen < 5.0 L 10/18/18 10/18/18 10/18/18 09:09 09:09 12:21 WBC RBC 3.28 L Hgb Hct MCV RDW Plt Count 125 L Lymph % (Auto) 13.2 L [place] % (Auto) Lymph # 1.1 L [place] # Seg Neutrophils % 80.7 H Seg Neuts % (Manual) Lymphocytes % (Manual) Monocytes % (Manual) Nucleated RBC % Seg Neutrophils # Seg Neutrophils # Man Lymphocytes # (Manual) PT INR POC ABG pH POC ABG pCO2 POC ABG pO2 Sodium Potassium Chloride 97.9 L Carbon Dioxide 20 L D BUN 38 H Creatinine 3.2 H D Glucose 207 H POC Glucose 180 H Calcium Phosphorus TIBC Ferritin AST ALT Alkaline Phosphatase Lactate Dehydrogenase Total Creatine Kinase Troponin T C-Reactive Protein Serum Total Protein Total Protein Albumin Dtpjd-6-Eptwvlwgx PEP Interpretation HDL Cholesterol Vitamin B12 Urine Creatinine Ur Creatinine 24 Hour Urine Total Protein Salicylates Acetaminophen 10/18/18 10/18/18 10/19/18 17:14 20:50 05:20 WBC RBC 3.46 L Hgb Hct MCV 98 H RDW 16.4 H Plt Count 55 L Lymph % (Auto) [place] % (Auto) Lymph # [place] # Seg Neutrophils % Seg Neuts % (Manual) Lymphocytes % (Manual) Monocytes % (Manual) 9.0 H Nucleated RBC % 4.0 H Seg Neutrophils # Seg Neutrophils # Man Lymphocytes # (Manual) PT INR POC ABG pH POC ABG pCO2 POC ABG pO2 Sodium Potassium Chloride Carbon Dioxide BUN Creatinine Glucose POC Glucose 256 H 335 H Calcium Phosphorus TIBC Ferritin AST ALT Alkaline Phosphatase Lactate Dehydrogenase Total Creatine Kinase Troponin T C-Reactive Protein Serum Total Protein Total Protein Albumin Waryy-0-Edyovhsce PEP Interpretation HDL Cholesterol Vitamin B12 Urine Creatinine Ur Creatinine 24 Hour Urine Total Protein Salicylates Acetaminophen 10/19/18 10/19/18 10/19/18 05:20 08:34 08:34 WBC RBC Hgb Hct MCV RDW Plt Count Lymph % (Auto) [place] % (Auto) Lymph # [place] # Seg Neutrophils % Seg Neuts % (Manual) Lymphocytes % (Manual) Monocytes % (Manual) Nucleated RBC % Seg Neutrophils # Seg Neutrophils # Man Lymphocytes # (Manual) PT INR POC ABG pH POC ABG pCO2 POC ABG pO2 Sodium Potassium Chloride Carbon Dioxide 21 L BUN 52 H Creatinine 4.2 H Glucose 106 H POC Glucose Calcium Phosphorus TIBC 193 L Ferritin 2450.0 H AST ALT Alkaline Phosphatase Lactate Dehydrogenase 892 H Total Creatine Kinase Troponin T C-Reactive Protein Serum Total Protein Total Protein Albumin Bqcsl-2-Tmceavtra PEP Interpretation HDL Cholesterol Vitamin B12 Urine Creatinine Ur Creatinine 24 Hour Urine Total Protein Salicylates Acetaminophen 10/19/18 10/19/18 10/19/18 08:34 09:06 13:41 WBC RBC Hgb Hct MCV RDW Plt Count Lymph % (Auto) [place] % (Auto) Lymph # [place] # Seg Neutrophils % Seg Neuts % (Manual) Lymphocytes % (Manual) Monocytes % (Manual) Nucleated RBC % Seg Neutrophils # Seg Neutrophils # Man Lymphocytes # (Manual) PT INR POC ABG pH POC ABG pCO2 POC ABG pO2 Sodium Potassium Chloride Carbon Dioxide BUN Creatinine Glucose POC Glucose 141 H 156 H Calcium Phosphorus TIBC Ferritin AST ALT Alkaline Phosphatase Lactate Dehydrogenase Total Creatine Kinase Troponin T C-Reactive Protein Serum Total Protein Total Protein Albumin Qsosa-6-Dwlweorto PEP Interpretation HDL Cholesterol Vitamin B12 1296 H Urine Creatinine Ur Creatinine 24 Hour Urine Total Protein Salicylates Acetaminophen 08/05/19 08/05/19 08/06/19 15:53 22:51 05:07 WBC RBC 3.23 L Hgb 10.0 L Hct MCV RDW 15.7 H Plt Count 111 L D Lymph % (Auto) [place] % (Auto) 8.0 H Lymph # [place] # Seg Neutrophils % Seg Neuts % (Manual) Lymphocytes % (Manual) Monocytes % (Manual) Nucleated RBC % Seg Neutrophils # Seg Neutrophils # Man Lymphocytes # (Manual) PT INR POC ABG pH POC ABG pCO2 POC ABG pO2 Sodium Potassium Chloride Carbon Dioxide BUN Creatinine Glucose POC Glucose 193 H 228 H Calcium Phosphorus TIBC Ferritin AST ALT Alkaline Phosphatase Lactate Dehydrogenase Total Creatine Kinase Troponin T C-Reactive Protein Serum Total Protein Total Protein Albumin Allwe-0-Qbpfeufsr PEP Interpretation HDL Cholesterol Vitamin B12 Urine Creatinine Ur Creatinine 24 Hour Urine Total Protein Salicylates Acetaminophen 10/20/18 10/20/18 10/20/18 05:07 05:07 10:44 WBC RBC Hgb Hct MCV RDW Plt Count Lymph % (Auto) [place] % (Auto) Lymph # [place] # Seg Neutrophils % Seg Neuts % (Manual) Lymphocytes % (Manual) Monocytes % (Manual) Nucleated RBC % Seg Neutrophils # Seg Neutrophils # Man Lymphocytes # (Manual) PT INR POC ABG pH POC ABG pCO2 POC ABG pO2 Sodium Potassium Chloride Carbon Dioxide BUN 32 H Creatinine 3.2 H Glucose 177 H POC Glucose 160 H Calcium 8.0 L Phosphorus TIBC Ferritin AST 305 H ALT 728 H Alkaline Phosphatase 402 H Lactate Dehydrogenase Total Creatine Kinase Troponin T C-Reactive Protein Serum Total Protein 5.5 L Total Protein 6.0 L Albumin 2.9 L 2.7 L Srlro-8-Ggrlqwlmi 0.4 H PEP Interpretation see below H HDL Cholesterol Vitamin B12 Urine Creatinine Ur Creatinine 24 Hour Urine Total Protein Salicylates Acetaminophen 10/20/18 10/20/18 10/20/18 13:45 17:19 20:44 WBC RBC Hgb Hct MCV RDW Plt Count Lymph % (Auto) [place] % (Auto) Lymph # [place] # Seg Neutrophils % Seg Neuts % (Manual) Lymphocytes % (Manual) Monocytes % (Manual) Nucleated RBC % Seg Neutrophils # Seg Neutrophils # Man Lymphocytes # (Manual) PT INR POC ABG pH POC ABG pCO2 POC ABG pO2 Sodium Potassium Chloride Carbon Dioxide BUN Creatinine Glucose POC Glucose 143 H 234 H Calcium Phosphorus TIBC Ferritin AST ALT Alkaline Phosphatase Lactate Dehydrogenase Total Creatine Kinase Troponin T C-Reactive Protein Serum Total Protein Total Protein Albumin Qcccg-9-Lftbtmvca PEP Interpretation HDL Cholesterol Vitamin B12 Urine Creatinine 157.6 H Ur Creatinine 24 Hour Urine Total Protein Salicylates Acetaminophen 10/21/18 10/21/18 10/21/18 05:57 05:57 07:55 WBC RBC 3.16 L Hgb 10.0 L Hct 29.9 L MCV RDW 15.4 H Plt Count 125 L Lymph % (Auto) [place] % (Auto) 9.6 H Lymph # [place] # Seg Neutrophils % 71.3 H Seg Neuts % (Manual) Lymphocytes % (Manual) Monocytes % (Manual) Nucleated RBC % Seg Neutrophils # Seg Neutrophils # Man Lymphocytes # (Manual) PT INR POC ABG pH POC ABG pCO2 POC ABG pO2 Sodium Potassium Chloride Carbon Dioxide BUN 47 H Creatinine 4.9 H D Glucose 229 H POC Glucose 239 H Calcium 8.0 L Phosphorus TIBC Ferritin AST ALT Alkaline Phosphatase Lactate Dehydrogenase Total Creatine Kinase Troponin T C-Reactive Protein Serum Total Protein Total Protein Albumin Vbtmq-4-Iedqhuaif PEP Interpretation HDL Cholesterol Vitamin B12 Urine Creatinine Ur Creatinine 24 Hour Urine Total Protein Salicylates Acetaminophen 10/21/18 10/21/18 10/21/18 12:05 15:40 18:19 WBC RBC Hgb Hct MCV RDW Plt Count Lymph % (Auto) [place] % (Auto) Lymph # [place] # Seg Neutrophils % Seg Neuts % (Manual) Lymphocytes % (Manual) Monocytes % (Manual) Nucleated RBC % Seg Neutrophils # Seg Neutrophils # Man Lymphocytes # (Manual) PT INR POC ABG pH POC ABG pCO2 POC ABG pO2 Sodium Potassium Chloride Carbon Dioxide BUN Creatinine Glucose POC Glucose 446 H 263 H Calcium Phosphorus TIBC Ferritin AST ALT Alkaline Phosphatase Lactate Dehydrogenase Total Creatine Kinase Troponin T C-Reactive Protein Serum Total Protein Total Protein Albumin Oskdd-1-Omkwrvebk PEP Interpretation HDL Cholesterol Vitamin B12 Urine Creatinine 196.7 H Ur Creatinine 24 Hour 0.1 L Urine Total Protein Salicylates Acetaminophen 10/22/18 10/22/18 10/22/18 00:45 06:24 06:24 WBC RBC 3.17 L Hgb 9.9 L Hct MCV RDW 15.7 H Plt Count 134 L Lymph % (Auto) [place] % (Auto) Lymph # [place] # Seg Neutrophils % Seg Neuts % (Manual) 78.0 H Lymphocytes % (Manual) Monocytes % (Manual) Nucleated RBC % Seg Neutrophils # Seg Neutrophils # Man 8.3 H Lymphocytes # (Manual) PT INR POC ABG pH POC ABG pCO2 POC ABG pO2 Sodium Potassium Chloride Carbon Dioxide BUN 33 H Creatinine 3.9 H Glucose 171 H POC Glucose 179 H Calcium Phosphorus TIBC Ferritin AST ALT Alkaline Phosphatase Lactate Dehydrogenase Total Creatine Kinase Troponin T C-Reactive Protein Serum Total Protein Total Protein Albumin Nmepq-3-Zknxihjys PEP Interpretation HDL Cholesterol Vitamin B12 Urine Creatinine Ur Creatinine 24 Hour Urine Total Protein Salicylates Acetaminophen 10/22/18 10/22/18 10/22/18 12:47 18:33 21:58 WBC RBC Hgb Hct MCV RDW Plt Count Lymph % (Auto) [place] % (Auto) Lymph # [place] # Seg Neutrophils % Seg Neuts % (Manual) Lymphocytes % (Manual) Monocytes % (Manual) Nucleated RBC % Seg Neutrophils # Seg Neutrophils # Man Lymphocytes # (Manual) PT INR POC ABG pH POC ABG pCO2 POC ABG pO2 Sodium Potassium Chloride Carbon Dioxide BUN Creatinine Glucose POC Glucose 210 H 176 H 230 H Calcium Phosphorus TIBC Ferritin AST ALT Alkaline Phosphatase Lactate Dehydrogenase Total Creatine Kinase Troponin T C-Reactive Protein Serum Total Protein Total Protein Albumin Kdmbd-2-Khqvyiqrn PEP Interpretation HDL Cholesterol Vitamin B12 Urine Creatinine Ur Creatinine 24 Hour Urine Total Protein Salicylates Acetaminophen 10/23/18 10/23/18 10/23/18 05:24 05:24 07:31 WBC RBC 3.49 L Hgb Hct MCV RDW 16.7 H Plt Count Lymph % (Auto) [place] % (Auto) Lymph # [place] # Seg Neutrophils % Seg Neuts % (Manual) 88.0 H Lymphocytes % (Manual) 6.0 L Monocytes % (Manual) Nucleated RBC % Seg Neutrophils # Seg Neutrophils # [place] 9.3 H Lymphocytes # (Manual) 0.6 L PT INR POC ABG pH POC ABG pCO2 POC ABG pO2 Sodium Potassium Chloride Carbon Dioxide BUN 49 H Creatinine 5.0 H Glucose 211 H POC Glucose 137 H Calcium Phosphorus 5.30 H D TIBC Ferritin AST ALT Alkaline Phosphatase Lactate Dehydrogenase Total Creatine Kinase Troponin T C-Reactive Protein Serum Total Protein Total Protein Albumin Pxzie-8-Xiajffhld PEP Interpretation HDL Cholesterol Vitamin B12 Urine Creatinine Ur Creatinine 24 Hour Urine Total Protein Salicylates Acetaminophen 10/23/18 10/23/18 10/23/18 11:50 11:51 14:59 WBC RBC Hgb Hct MCV RDW Plt Count Lymph % (Auto) [place] % (Auto) Lymph # [place] # Seg Neutrophils % Seg Neuts % (Manual) Lymphocytes % (Manual) Monocytes % (Manual) Nucleated RBC % Seg Neutrophils # Seg Neutrophils # Man Lymphocytes # (Manual) PT INR POC ABG pH 7.346 L POC ABG pCO2 POC ABG pO2 116 H Sodium Potassium Chloride Carbon Dioxide BUN Creatinine Glucose POC Glucose 232 H Calcium Phosphorus TIBC Ferritin AST ALT Alkaline Phosphatase Lactate Dehydrogenase Total Creatine Kinase Troponin T C-Reactive Protein 24.10 H Serum Total Protein Total Protein Albumin Jwgwx-6-Poesszngl PEP Interpretation HDL Cholesterol Vitamin B12 Urine Creatinine Ur Creatinine 24 Hour Urine Total Protein Salicylates Acetaminophen 10/23/18 10/23/18 10/23/18 18:29 20:51 23:37 WBC RBC Hgb Hct MCV RDW Plt Count Lymph % (Auto) [place] % (Auto) Lymph # [place] # Seg Neutrophils % Seg Neuts % (Manual) Lymphocytes % (Manual) Monocytes % (Manual) Nucleated RBC % Seg Neutrophils # Seg Neutrophils # Man Lymphocytes # (Manual) PT INR POC ABG pH POC ABG pCO2 34.3 L POC ABG pO2 Sodium Potassium Chloride Carbon Dioxide BUN Creatinine Glucose POC Glucose 182 H 232 H Calcium Phosphorus TIBC Ferritin AST ALT Alkaline Phosphatase Lactate Dehydrogenase Total Creatine Kinase Troponin T C-Reactive Protein Serum Total Protein Total Protein Albumin Zrwhb-5-Zmhbawpyo PEP Interpretation HDL Cholesterol Vitamin B12 Urine Creatinine Ur Creatinine 24 Hour Urine Total Protein Salicylates Acetaminophen 10/24/18 10/24/18 10/24/18 04:50 04:50 07:44 WBC RBC 3.13 L Hgb 9.7 L Hct MCV RDW 16.8 H Plt Count 132 L Lymph % (Auto) [place] % (Auto) Lymph # [place] # Seg Neutrophils % Seg Neuts % (Manual) 79.0 H Lymphocytes % (Manual) 11.0 L Monocytes % (Manual) Nucleated RBC % Seg Neutrophils # Seg Neutrophils # Man 8.7 H Lymphocytes # (Manual) PT INR POC ABG pH POC ABG pCO2 POC ABG pO2 Sodium 136 L Potassium Chloride 94.6 L Carbon Dioxide BUN 25 H Creatinine 3.3 H Glucose 214 H POC Glucose 219 H Calcium Phosphorus TIBC Ferritin AST ALT Alkaline Phosphatase Lactate Dehydrogenase Total Creatine Kinase Troponin T C-Reactive Protein Serum Total Protein Total Protein Albumin Btycv-4-Rsigvkwuw PEP Interpretation HDL Cholesterol Vitamin B12 Urine Creatinine Ur Creatinine 24 Hour Urine Total Protein Salicylates Acetaminophen 10/24/18 10/24/18 10/24/18 11:52 18:25 21:12 WBC RBC Hgb Hct MCV RDW Plt Count Lymph % (Auto) [place] % (Auto) Lymph # [place] # Seg Neutrophils % Seg Neuts % (Manual) Lymphocytes % (Manual) Monocytes % (Manual) Nucleated RBC % Seg Neutrophils # Seg Neutrophils # Man Lymphocytes # (Manual) PT INR POC ABG pH POC ABG pCO2 POC ABG pO2 Sodium Potassium Chloride Carbon Dioxide BUN Creatinine Glucose POC Glucose 290 H 113 H 123 H Calcium Phosphorus TIBC Ferritin AST ALT Alkaline Phosphatase Lactate Dehydrogenase Total Creatine Kinase Troponin T C-Reactive Protein Serum Total Protein Total Protein Albumin Palsr-7-Xjunjenpb PEP Interpretation HDL Cholesterol Vitamin B12 Urine Creatinine Ur Creatinine 24 Hour Urine Total Protein Salicylates Acetaminophen 10/25/18 10/25/18 10/25/18 06:29 11:31 12:28 WBC RBC Hgb Hct MCV RDW Plt Count Lymph % (Auto) [place] % (Auto) Lymph # [place] # Seg Neutrophils % Seg Neuts % (Manual) Lymphocytes % (Manual) Monocytes % (Manual) Nucleated RBC % Seg Neutrophils # Seg Neutrophils # Man Lymphocytes # (Manual) PT INR POC ABG pH POC ABG pCO2 POC ABG pO2 Sodium Potassium Chloride 94.1 L Carbon Dioxide BUN 42 H Creatinine 4.8 H Glucose 192 H POC Glucose 208 H 225 H Calcium Phosphorus TIBC Ferritin AST ALT Alkaline Phosphatase Lactate Dehydrogenase Total Creatine Kinase Troponin T C-Reactive Protein Serum Total Protein Total Protein Albumin [id number] PEP Interpretation HDL Cholesterol Vitamin B12 Urine Creatinine Ur Creatinine 24 Hour Urine Total Protein Salicylates Acetaminophen 10/25/18 10/25/18 10/26/18 16:16 23:38 05:49 WBC RBC Hgb Hct MCV RDW Plt Count Lymph % (Auto) [place] % (Auto) Lymph # [place] # Seg Neutrophils % Seg Neuts % (Manual) Lymphocytes % (Manual) Monocytes % (Manual) Nucleated RBC % Seg Neutrophils # Seg Neutrophils # Man Lymphocytes # (Manual) PT INR POC ABG pH POC ABG pCO2 POC ABG pO2 Sodium Potassium Chloride Carbon Dioxide BUN Creatinine Glucose POC Glucose 228 H 312 H 246 H Calcium Phosphorus TIBC Ferritin AST ALT Alkaline Phosphatase Lactate Dehydrogenase Total Creatine Kinase Troponin T C-Reactive Protein Serum Total Protein Total Protein Albumin [id number] PEP Interpretation HDL Cholesterol Vitamin B12 Urine Creatinine Ur Creatinine 24 Hour Urine Total Protein Salicylates Acetaminophen 10/26/18 10/26/18 10/26/18 06:13 06:13 09:17 WBC 12.3 H RBC 3.35 L Hgb Hct MCV RDW 16.4 H Plt Count Lymph % (Auto) 8.4 L [place] % (Auto) 10.7 H Lymph # 1.0 L [place] # 1.3 H Seg Neutrophils % 80.4 H Seg Neuts % (Manual) Lymphocytes % (Manual) Monocytes % (Manual) Nucleated RBC % Seg Neutrophils # 9.9 H Seg Neutrophils # Man Lymphocytes # (Manual) PT INR POC ABG pH POC ABG pCO2 POC ABG pO2 Sodium 136 L Potassium Chloride 91.7 L Carbon Dioxide BUN 54 H Creatinine 6.0 H Glucose 247 H POC Glucose 252 H Calcium Phosphorus TIBC Ferritin AST ALT Alkaline Phosphatase 251 H Lactate Dehydrogenase 458 H Total Creatine Kinase Troponin T C-Reactive Protein Serum Total Protein Total Protein 5.9 L Albumin 3.0 L [id number] PEP Interpretation HDL Cholesterol Vitamin B12 Urine Creatinine Ur Creatinine 24 Hour Urine Total Protein Salicylates Acetaminophen 10/26/18 10/27/18 10/27/18 15:31 00:37 06:20 WBC RBC Hgb Hct MCV RDW Plt Count Lymph % (Auto) [place] % (Auto) Lymph # [place] # Seg Neutrophils % Seg Neuts % (Manual) Lymphocytes % (Manual) Monocytes % (Manual) Nucleated RBC % Seg Neutrophils # Seg Neutrophils # Man Lymphocytes # (Manual) PT INR POC ABG pH POC ABG pCO2 POC ABG pO2 Sodium Potassium Chloride Carbon Dioxide BUN Creatinine Glucose POC Glucose 265 H 308 H 368 H Calcium Phosphorus TIBC Ferritin AST ALT Alkaline Phosphatase Lactate Dehydrogenase Total Creatine Kinase Troponin T C-Reactive Protein Serum Total Protein Total Protein Albumin [id number] PEP Interpretation HDL Cholesterol Vitamin B12 Urine Creatinine Ur Creatinine 24 Hour Urine Total Protein Salicylates Acetaminophen 10/27/18 10/27/18 10/27/18 11:19 16:40 22:48 WBC RBC Hgb Hct MCV RDW Plt Count Lymph % (Auto) [place] % (Auto) Lymph # [place] # Seg Neutrophils % Seg Neuts % (Manual) Lymphocytes % (Manual) Monocytes % (Manual) Nucleated RBC % Seg Neutrophils # Seg Neutrophils # Man Lymphocytes # (Manual) PT INR POC ABG pH POC ABG pCO2 POC ABG pO2 Sodium Potassium Chloride Carbon Dioxide BUN Creatinine Glucose POC Glucose 331 H 348 H 345 H Calcium Phosphorus TIBC Ferritin AST ALT Alkaline Phosphatase Lactate Dehydrogenase Total Creatine Kinase Troponin T C-Reactive Protein Serum Total Protein Total Protein Albumin [id number] PEP Interpretation HDL Cholesterol Vitamin B12 Urine Creatinine Ur Creatinine 24 Hour Urine Total Protein Salicylates Acetaminophen 10/28/18 10/28/18 10/28/18 05:52 05:58 05:58 WBC 12.5 H RBC 2.82 L Hgb 8.7 L Hct 26.7 L MCV RDW 16.2 H Plt Count Lymph % (Auto) [place] % (Auto) Lymph # [place] # Seg Neutrophils % Seg Neuts % (Manual) Lymphocytes % (Manual) Monocytes % (Manual) Nucleated RBC % Seg Neutrophils # Seg Neutrophils # Man Lymphocytes # (Manual) PT INR POC ABG pH POC ABG pCO2 POC ABG pO2 Sodium Potassium Chloride 93.7 L Carbon Dioxide BUN 55 H Creatinine 5.3 H Glucose 286 H POC Glucose 280 H Calcium 8.3 L Phosphorus TIBC Ferritin AST ALT Alkaline Phosphatase Lactate Dehydrogenase Total Creatine Kinase Troponin T C-Reactive Protein Serum Total Protein Total Protein Albumin [id number]-[id number] PEP Interpretation HDL Cholesterol Vitamin B12 Urine Creatinine Ur Creatinine 24 Hour Urine Total Protein Salicylates Acetaminophen 10/28/18 10/29/18 10/29/18 18:09 00:56 12:56 WBC 12.5 H RBC 2.82 L Hgb 8.6 L Hct 26.5 L MCV RDW 16.2 H Plt Count Lymph % (Auto) 7.1 L [place] % (Auto) 9.7 H Lymph # 0.9 L [place] # 1.2 H Seg Neutrophils % 81.8 H Seg Neuts % (Manual) Lymphocytes % (Manual) Monocytes % (Manual) Nucleated RBC % Seg Neutrophils # 10.2 H Seg Neutrophils # Man Lymphocytes # (Manual) PT INR POC ABG pH POC ABG pCO2 POC ABG pO2 Sodium Potassium Chloride Carbon Dioxide BUN Creatinine Glucose POC Glucose 289 H 172 H Calcium Phosphorus TIBC Ferritin AST ALT Alkaline Phosphatase Lactate Dehydrogenase Total Creatine Kinase Troponin T C-Reactive Protein Serum Total Protein Total Protein Albumin Irpab-1-Grshplmui PEP Interpretation HDL Cholesterol Vitamin B12 Urine Creatinine Ur Creatinine 24 Hour Urine Total Protein Salicylates Acetaminophen 10/29/18 10/29/18 10/30/18 13:25 17:58 00:18 WBC RBC Hgb Hct MCV RDW Plt Count Lymph % (Auto) [place] % (Auto) Lymph # [place] # Seg Neutrophils % Seg Neuts % (Manual) Lymphocytes % (Manual) Monocytes % (Manual) Nucleated RBC % Seg Neutrophils # Seg Neutrophils # Man Lymphocytes # (Manual) PT INR POC ABG pH POC ABG pCO2 POC ABG pO2 Sodium 134 L Potassium Chloride 90.8 L Carbon Dioxide BUN 75 H Creatinine 6.5 H Glucose 251 H POC Glucose 227 H 279 H Calcium Phosphorus TIBC Ferritin AST ALT Alkaline Phosphatase Lactate Dehydrogenase Total Creatine Kinase Troponin T C-Reactive Protein Serum Total Protein Total Protein Albumin [id number] PEP Interpretation HDL Cholesterol Vitamin B12 Urine Creatinine Ur Creatinine 24 Hour Urine Total Protein Salicylates Acetaminophen 10/30/18 10/30/18 10/30/18 05:30 13:01 18:08 WBC RBC Hgb Hct MCV RDW Plt Count Lymph % (Auto) [place] % (Auto) Lymph # [place] # Seg Neutrophils % Seg Neuts % (Manual) Lymphocytes % (Manual) Monocytes % (Manual) Nucleated RBC % Seg Neutrophils # Seg Neutrophils # Man Lymphocytes # (Manual) PT INR POC ABG pH POC ABG pCO2 POC ABG pO2 Sodium Potassium Chloride Carbon Dioxide BUN Creatinine Glucose POC Glucose 230 H 315 H 232 H Calcium Phosphorus TIBC Ferritin AST ALT Alkaline Phosphatase Lactate Dehydrogenase Total Creatine Kinase Troponin T C-Reactive Protein Serum Total Protein Total Protein Albumin [id number] PEP Interpretation HDL Cholesterol Vitamin B12 Urine Creatinine Ur Creatinine 24 Hour Urine Total Protein Salicylates Acetaminophen 10/30/18 10/31/18 10/31/18 23:31 05:26 12:09 WBC RBC Hgb Hct MCV RDW Plt Count Lymph % (Auto) [place] % (Auto) Lymph # [place] # Seg Neutrophils % Seg Neuts % (Manual) Lymphocytes % (Manual) Monocytes % (Manual) Nucleated RBC % Seg Neutrophils # Seg Neutrophils # Man Lymphocytes # (Manual) PT INR POC ABG pH POC ABG pCO2 POC ABG pO2 Sodium Potassium Chloride Carbon Dioxide BUN Creatinine Glucose POC Glucose 247 H 174 H 263 H Calcium Phosphorus TIBC Ferritin AST ALT Alkaline Phosphatase Lactate Dehydrogenase Total Creatine Kinase Troponin T C-Reactive Protein Serum Total Protein Total Protein Albumin [id number] PEP Interpretation HDL Cholesterol Vitamin B12 Urine Creatinine Ur Creatinine 24 Hour Urine Total Protein Salicylates Acetaminophen 10/31/18 10/31/18 10/31/18 18:26 21:33 23:43 WBC RBC Hgb Hct MCV RDW Plt Count Lymph % (Auto) [place] % (Auto) Lymph # [place] # Seg Neutrophils % Seg Neuts % (Manual) Lymphocytes % (Manual) Monocytes % (Manual) Nucleated RBC % Seg Neutrophils # Seg Neutrophils # Man Lymphocytes # (Manual) PT INR POC ABG pH POC ABG pCO2 POC ABG pO2 Sodium Potassium Chloride Carbon Dioxide BUN Creatinine Glucose POC Glucose 314 H 268 H 264 H Calcium Phosphorus TIBC Ferritin AST ALT Alkaline Phosphatase Lactate Dehydrogenase Total Creatine Kinase Troponin T C-Reactive Protein Serum Total Protein Total Protein Albumin [id number] PEP Interpretation HDL Cholesterol Vitamin B12 Urine Creatinine Ur Creatinine 24 Hour Urine Total Protein Salicylates Acetaminophen 11/01/18 11/01/18 11/01/18 04:52 04:52 04:52 WBC 13.9 H RBC 2.68 L Hgb 8.2 L Hct 25.9 L MCV RDW 16.7 H Plt Count Lymph % (Auto) [place] % (Auto) Lymph # [place] # Seg Neutrophils % Seg Neuts % (Manual) Lymphocytes % (Manual) Monocytes % (Manual) Nucleated RBC % Seg Neutrophils # Seg Neutrophils # Man Lymphocytes # (Manual) PT INR POC ABG pH POC ABG pCO2 POC ABG pO2 Sodium Potassium Chloride 95.4 L Carbon Dioxide BUN 67 H Creatinine 5.3 H Glucose 240 H POC Glucose 276 H Calcium Phosphorus TIBC Ferritin AST ALT Alkaline Phosphatase Lactate Dehydrogenase Total Creatine Kinase Troponin T C-Reactive Protein Serum Total Protein Total Protein Albumin [id number]-[id number] PEP Interpretation HDL Cholesterol Vitamin B12 Urine Creatinine Ur Creatinine 24 Hour Urine Total Protein Salicylates Acetaminophen Chest x-ray: other (none today) Allied health notes reviewed: nursing
--- NOTE | 2018-11-01 14:36 | Progress Note ---
Assessment and Plan Assessment and plan: Patient is a 63 yo woman with hypertension, dm type 2, gerd, cva, dementia, cad s/p cabg, seizure disorder, OA and CKD 4 (last Cr here was 2.2 on 01/08/2017) who presented to [facility] ED with AMS x 3 days. She was admitted for severe renal failure/uremic encephalopathy with hyperkalemia. Creatinine was found to be 5.6. She underwent emergent Hemodialysis * CT head without contrast IMPRESSION: 1. Recent infarcts in the left MCA and left CLOTHES SEPARATOR territories. Although there is no volume loss associated with CLOTHES SEPARATOR infarct, the hypoattenuation of the parenchyma and loss of laboy-white differentiation is more conspicuous, suggesting this may be an older infarct. 2. No acute hemorrhage. Report of these findings was called to Dr. Novak in the emergency department at the time of dictation. * pCXR Impression: Increasing right basilar effusion/volume loss * 10/21/2017 [place] Conclusions: Left ventricular chamber size is severely dilated, global left ventricular systolic function is severely decreased, estimated EF is 10-15%, RVSF is severely reduced, No ASD, no endocarditis or cardioembolic source * MRI brain without contrast BRAIN / INTRACRANIAL CONTENTS: Multiple ischemic areas seen - the larger areas were seen on recent CT. Branch MCA infarct seen in the middle and inferior frontal gyral region on the left. Branch CLOTHES SEPARATOR infarct seen on the left, including calcarine cortex. Small focus of ischemia seen in the left precuneus. There are small foci of ischemia seen in the superior frontal gyrus and paracentral lobule regions on the right, superiorly. Minimal involvement of the genu/rostrum of the corpus callosum is suggested. Punctate involvement seen in the right parietal temporal region. Other, scattered, punctate areas of ischemia may be present as well. Because of these findings, embolic phenomena should be considered. Otherwise, no acute hemorrhage, mass effect, midline shift, hydrocephalus, or acute, large territorial infarct. No chronic infarct or atrophy. Lacunar infarcts suggested in the thalamic regions. There are moderate areas of increased signal intensity on FLAIR imaging in the white matter of the cerebral hemispheres, as well as the gangliocapsular regions. These are nonspecific findings and may be related to microangiopathy (hypertension, diabetes, atherosclerosis), given the patient's age. CRANIOCERVICAL JUNCTION: No significant abnormality. VASCULAR FLOW-VOIDS: No significant abnormality. ORBITS: No significant abnormality of visualized orbits. SINUSES / MASTOIDS: There is mild mucosal thickening with the ethmoids. ADDITIONAL FINDINGS: None. IMPRESSION: 1. Multiple areas of ischemia as described above, worrisome for embolic phenomenon. No evidence of hemorrhagic transformation at this time. * 10/27/2018 CT brain without Impression: IMPRESSION: No acute intracranial proce ss. Evolving ischemic infarcts in the left frontal lobe and left occipital lobe as described. * US chest Impression: Small bilateral pleural effusions AMS most likely due to Acute Embolic Ischemic Strokes/CVA: supportive care, poor prognosis Cardiogenic Shock: did not respond to bolus therefore moved to ICU on 10/28/18 to start Vasopressor Cardiomyopathy, EF 10-15%, Cardiology is following Acute metabolic encephalopathy, poa:work up in process ARF/CKD 4 vasomotor +ATN: hemodialysis started Hyperkalemia: treated with HD, Courtroom Reporter following, monitor bmp closely Glaucoma: continue latanoprost eyedrops Vitamin D deficiency: Continue vitamin D Hyperlipidemia: Continue statins Peripheral neuropathy: Continue gabapentin Seizure disorder: Continue Keppra Hypertension: Continue antihypertensives DVT prophylaxis: heparin and GI prophylaxis , now DNR 10/26/18: Continue inpatient care, was going to SNF but spiked a temp of 101 F on 10/26/18 at 0438 am, this is her second temperature spike, first temp was 10/24/18 @ 0800am of 100.8F. repeat Blood cultures pending, pCXR Impression: Increasing right basilar effusion/volume loss, UA not done because she doesn't make enough urine, She still has thomas and NGT in place. 10/27/18: Consulted ID because patient does have a line and spiking fevers 10/28/18: Unable to do HD due to AMS and patient is Hypotensive, really did not respond to 500 ml ns ivf resuscitative bolus. Will transfer back to ICU. Still with low grade temp of 100.2 F then later 100.3 F I called sister Danay [phone], discussed Hospice, but her main concern is stopping Hemodialysis in Hospice care. She received another bolus of 500 ml 10/29/18: Still hypotensive, left hand peripheral IV; therefore, will need central line for vasopressor, bp too low for Hemodialysis on MWF schedule. Also, NGT still in place 10/30/18: on Neosyn and dobutamine gtt, HD done with vasopressors, Family has decided to make her DNR, which is a good option considers her poor fdc prognosis. 10/31/18: still on Neosyn vasopressor and dobutamine gtt. still bp too low for HD without assistance, I called sister Danay to give her the update, wants family meeting, d/w Dr. Dillon, to defer Dr. Monsalve for Friday family meeting. 11/01/18: still on neosyn gtt, dobutamine gtt, add Midodrine. Sister Danay wants to speak with Dr. Monsalve again for possible hospice poor prognosis CCT 33 minutes History Interval history: Patient was seen and examined. Follow-up on current diagnosis of CVA. No overnight events reported to me. Patient is nonverbal. Imaging, nursing note, chart, labs and old chart reviewed. Hospitalist Physical - Physical exam Narrative exam: Gen: ill appearing, chronically disable appearing, eyes open, chronically non- verbal HEENT: NCAT, EOMI, PERRL, OP Clear Neck: supple, no adenopathy, no thyromegaly, no JVD CVS/Heart: RRR, normal S1S2, pulses present bilaterally Chest/Lungs: CTA B, Symmetrical chest expansion, good air entry bilaterally GI/Abdomen: soft, NTND, good bowel sounds, no guarding or rebound /Bladder: no suprapubic tenderness, no CVA or paraspinal tenderness Extermity/Skin: diffuse hyperpigmented coin lichenification lesion MSK: not following commands Neuro: not following commands Psych: lethargic - Constitutional Vitals: Temp Pulse Resp BP Pulse Ox 97.8 F 92 H 18 91/62 98 11/01/18 12:00 11/01/18 13:00 11/01/18 13:00 11/01/18 13:00 11/01/18 13:00 General appearance: Present: no acute distress Results - Labs CBC & Chem 7: 11/01/18 04:52 11/01/18 04:52 Labs: Laboratory Last Values WBC 13.9 K/mm3 (4.5-11.0) H 11/01/18 04:52 RBC 2.68 M/mm3 (3.65-5.03) L 11/01/18 04:52 Hgb 8.2 gm/dl (10.1-14.3) L 11/01/18 04:52 Hct 25.9 % (30.3-42.9) L 11/01/18 04:52 MCV 97 fl (79-97) 11/01/18 04:52 MCH 31 pg (28-32) 11/01/18 04:52 MCHC 32 % (30-34) 11/01/18 04:52 RDW 16.7 % (13.2-15.2) H 11/01/18 04:52 Plt Count 307 K/mm3 (140-440) 11/01/18 04:52 Lymph % (Auto) 7.1 % (13.4-35.0) L 10/29/18 00:56 [place] % (Auto) 9.7 % (0.0-7.3) H 10/29/18 00:56 Eos % (Auto) 0.8 % (0.0-4.3) 10/29/18 00:56 Baso % (Auto) 0.6 % (0.0-1.8) 10/29/18 00:56 Lymph # 0.9 K/mm3 (1.2-5.4) L 10/29/18 00:56 [place] # 1.2 K/mm3 (0.0-0.8) H 10/29/18 00:56 Eos # 0.1 K/mm3 (0.0-0.4) 10/29/18 00:56 Baso # 0.1 K/mm3 (0.0-0.1) 10/29/18 00:56 Add Manual Diff Complete 10/24/18 04:50 Total Counted 100 10/24/18 04:50 Seg Neutrophils % 81.8 % (40.0-70.0) H 10/29/18 00:56 Seg Neuts % (Manual) 79.0 % (40.0-70.0) H 10/24/18 04:50 4.0 % 10/24/18 04:50 11.0 % (13.4-35.0) L 10/24/18 04:50 Reactive Lymphs % (Man) 0 % 10/24/18 04:50 6.0 % (0.0-7.3) 10/24/18 04:50 0 % (0.0-4.3) 10/24/18 04:50 0 % (0.0-1.8) 10/24/18 04:50 0 % 10/24/18 04:50 0 % 10/24/18 04:50 0 % 10/24/18 04:50 0 % 10/24/18 04:50 Nucleated RBC % Not Reportable 10/24/18 04:50 Seg Neutrophils # 10.2 K/mm3 (1.8-7.7) H 10/29/18 00:56 Seg Neutrophils # Man 8.7 K/mm3 (1.8-7.7) H 10/24/18 04:50 Band Neutrophils # 0.4 K/mm3 10/24/18 04:50 1.2 K/mm3 (1.2-5.4) 10/24/18 04:50 Abs React Lymphs (Man) 0.0 K/mm3 10/24/18 04:50 0.7 K/mm3 (0.0-0.8) 10/24/18 04:50 0.0 K/mm3 (0.0-0.4) 10/24/18 04:50 0.0 K/mm3 (0.0-0.1) 10/24/18 04:50 0.0 K/mm3 10/24/18 04:50 0.0 K/mm3 10/24/18 04:50 0.0 K/mm3 10/24/18 04:50 Blast Cells # 0.0 K/mm3 10/24/18 04:50 Pathologist Review 10/24/18 04:50 WBC Morphology Not Reportable 10/23/18 05:24 Hypersegmented Neuts Not Reportable 10/24/18 04:50 Hyposegmented Neuts Not Reportable 10/24/18 04:50 Hypogranular Neuts Not Reportable 10/24/18 04:50 Few 10/24/18 04:50 Not Reportable 10/24/18 04:50 Not Reportable 10/24/18 04:50 Not Reportable 10/24/18 04:50 Not Reportable 10/24/18 04:50 Not Reportable 10/24/18 04:50 Consistent w auto 10/24/18 04:50 Not Reportable 10/24/18 04:50 Plt Clumps, EDTA Not Reportable 10/24/18 04:50 Not Reportable 10/24/18 04:50 Not Reportable 10/24/18 04:50 Not Reportable 10/24/18 04:50 Plt Morphology Comment Not Reportable 10/24/18 04:50 RBC Morphology Not Reportable 10/24/18 04:50 Dimorphic RBCs Not Reportable 10/24/18 04:50 Not Reportable 10/24/18 04:50 Few 10/24/18 04:50 Not Reportable 10/24/18 04:50 1+ 10/24/18 04:50 Not Reportable 10/24/18 04:50 1+ 10/24/18 04:50 Not Reportable 10/24/18 04:50 Not Reportable 10/24/18 04:50 Not Reportable 10/24/18 04:50 Rare 10/24/18 04:50 Not Reportable 10/24/18 04:50 Few 10/24/18 04:50 Not Reportable 10/24/18 04:50 Not Reportable 10/24/18 04:50 Not Reportable 10/24/18 04:50 3+ 10/24/18 04:50 Not Reportable 10/24/18 04:50 Not Reportable 10/24/18 04:50 Not Reportable 10/24/18 04:50 Acanthocytes (Spur) Not Reportable 10/24/18 04:50 Rouleaux Not Reportable 10/24/18 04:50 Not Reportable 10/24/18 04:50 Not Reportable 10/24/18 04:50 Not Reportable 10/24/18 04:50 Not Reportable 10/24/18 04:50 Hem Pathologist Commnt Sent to pathology 10/24/18 04:50 PT 20.6 Sec. (12.2-14.9) H 10/17/18 10:19 INR 1.81 (0.87-1.13) H 10/17/18 10:19 APTT 35.6 Sec. (24.2-36.6) 10/17/18 10:19 18.7 Sec. (15.1-19.6) 10/17/18 10:19 Heparin Anti-Xa, Unfract Negative (Negative) 10/19/18 08:34 POC ABG pH 7.436 (7.35-7.45) 10/23/18 20:51 POC ABG pCO2 34.3 (35-45) L 10/23/18 20:51 POC ABG pO2 95 (80-105) 10/23/18 20:51 POC ABG HCO3 23.1 (22-26 mml/L) 10/23/18 20:51 POC ABG Total CO2 24 (23-27mmol/L) 10/23/18 20:51 POC ABG O2 Sat 98 10/23/18 20:51 POC ABG Base Excess -1 ((-2) - (+3)mmol/L) 10/23/18 20:51 24 % 10/23/18 20:51 Sodium 138 mmol/L (137-145) 11/01/18 04:52 Potassium 4.2 mmol/L (3.6-5.0) 11/01/18 04:52 Chloride 95.4 mmol/L (98-107) L 11/01/18 04:52 Carbon Dioxide 24 mmol/L (22-30) 11/01/18 04:52 23 mmol/L 11/01/18 04:52 BUN 67 mg/dL (7-17) H 11/01/18 04:52 5.3 mg/dL (0.7-1.2) H 11/01/18 04:52 Estimated GFR 10 ml/min 11/01/18 04:52 13 % 11/01/18 04:52 Glucose 240 mg/dL (65-100) H 11/01/18 04:52 POC Glucose 300 (70-105) H 11/01/18 12:37 Lactic Acid 1.30 mmol/L (0.7-2.0) 10/23/18 14:59 Calcium 8.5 mg/dL (8.4-10.2) 11/01/18 04:52 Phosphorus 5.30 mg/dL (2.5-4.5) H D 10/23/18 05:24 Magnesium 1.90 mg/dL (1.7-2.3) 10/28/18 05:58 Iron 55 ug/dL (37-170) 10/19/18 08:34 TIBC 193 mcg/dL (250-450) L 10/19/18 08:34 2450.0 ng/mL (13.0-400.0) H 10/19/18 08:34 0.50 mg/dL (0.1-1.2) 10/26/18 06:13 AST 36 units/L (5-40) 10/26/18 06:13 ALT 18 units/L (7-56) 10/26/18 06:13 251 units/L (35-129) H 10/26/18 06:13 28.0 umol/L (25-60) 10/26/18 19:36 458 units/L (91-180) H 10/26/18 06:13 3216 units/L (30-135) H 10/17/18 15:15 4.720 ng/mL (0.00-0.029) H* 10/17/18 Unknown 24.10 mg/dL (0.00-1.30) H 10/23/18 14:59 5.5 g/dL (6.1-8.1) L 10/20/18 05:07 5.9 g/dL (6.3-8.2) L 10/26/18 06:13 3.0 g/dL (3.9-5) L 10/26/18 06:13 1.0 % 10/26/18 06:13 0.4 g/dL (0.2-0.3) H 10/20/18 05:07 0.9 g/dL (0.5-0.9) 10/20/18 05:07 0.3 g/dL (0.2-0.5) 10/20/18 05:07 0.8 g/dL (0.8-1.7) 10/20/18 05:07 Abnorm Protein Band 1 see below 10/20/18 05:07 PEP Interpretation see below H 10/20/18 05:07 Triglycerides 102 mg/dL (2-149) 10/17/18 Unknown Cholesterol 198 mg/dL (50-199) 10/17/18 Unknown 116 mg/dL (50-130) 10/17/18 Unknown 88 mg/dL (40-59) H 10/17/18 Unknown 2.25 % 10/17/18 Unknown See scanned result 10/19/18 08:34 Vitamin B12 1296 pg/mL (211-911) H 10/19/18 08:34 8.42 ng/mL (7.3-26.0) 10/19/18 08:34 TSH 1.030 mlU/mL (0.270-4.200) 10/17/18 Unknown Free T4 1.26 ng/dL (0.76-1.46) 10/17/18 Unknown Yellow (Yellow) 10/17/18 11:25 Slightly-cloudy (Clear) 10/17/18 11:25 5.0 (5.0-7.0) 10/17/18 11:25 Ur Specific [place] 1.019 (1.003-1.030) 10/17/18 11:25 100 mg/dl mg/dL (Negative) 10/17/18 11:25 150 mg/dL (Negative) 10/17/18 11:25 Tr mg/dL (Negative) 10/17/18 11:25 Sm (Negative) 10/17/18 11:25 Neg (Negative) 10/17/18 11:25 Neg (Negative) 10/17/18 11:25 < 2.0 mg/dL (<2.0) 10/17/18 11:25 Ur Leukocyte Esterase Tr (Negative) 10/17/18 11:25 3.0 /HPF (0.0-6.0) 10/17/18 11:25 2.0 /HPF (0.0-6.0) 10/17/18 11:25 Few /HPF 10/17/18 11:25 None seen (None Seen) 10/17/18 13:16 60 ml 10/21/18 18:19 196.7 mg/dL (0.1-20.0) H 10/21/18 18:19 Ur Creatinine 24 Hour 0.1 (0.8-2.8) L 10/21/18 18:19 Height (in) 62.0 inches 10/20/18 13:45 Weight (lb) 126.5 lbs 10/20/18 13:45 3 10/20/18 13:45 Protein/Creatinin Ratio 0.69 10/17/18 13:16 12 mmol/L 10/17/18 13:34 191 mg/dL (5-11.8) H 10/17/18 13:16 Salicylates < 0.3 mg/dL (2.8-20.0) L 10/17/18 Unknown Acetaminophen < 5.0 ug/mL (10.0-30.0) L 10/17/18 Unknown Plasma/Serum Alcohol < 0.01 % (0-0.07) 10/17/18 Unknown Immunofix Electrophor see below 10/20/18 05:07 Heparin-induced Plt Ab Negative (Negative) 10/19/18 08:34 UF Heparin High Dose 0 % Release 10/19/18 08:34 KAILYN UFH Low Dose 0.1 0 % Release 10/19/18 08:34 KAILYN UFH Low Dose 0.5 0 % Release 10/19/18 08:34 Hepatitis A IgM Ab Non-reactive (NonReactive) 10/17/18 15:15 Hep Bs Antigen Non-reactive (Negative) 10/17/18 15:15 Hep B Core IgM Ab Non-reactive (NonReactive) 10/17/18 15:15 Non-reactive (NonReactive) 10/17/18 15:15 Rare 10/17/18 15:43 Flexitest 1 10/20/18 10:53 Active Medications - Current Medications Current Medications: Generic Name Dose Route Start Last Admin Trade Name Freq PRN Reason Stop Dose Admin Acetaminophen 650 mg 10/29/18 15:49 10/29/18 16:46 Tylenol FEEDTUBE 650 mg Q6H PRN Administration Pain, Mild (1-3) Lipase/Protease/Amylase 1 each 10/25/18 09:18 10/28/18 09:[address] 10,500 Unit FEEDTUBE 1 each PRN PRN Administration For Clogged Feeding Tube Clopidogrel Bisulfate 75 mg 10/21/18 11:00 11/01/18 09:58 Plavix PO 75 mg QDAY ALLEY Administration Ergocalciferol 50,000 unit 10/24/18 10:00 10/31/18 10:31 Vitamin D2 PO 50,000 unit Sa ALLEY Administration Famotidine 20 mg 10/21/18 10:00 11/01/18 10:00 Pepcid PO 20 mg DAILY ALLEY Administration Gabapentin 300 mg 10/17/18 22:00 10/31/18 21:33 Neurontin PO 300 mg QHS ALLEY Administration Heparin Sodium (Porcine) 5,000 unit 10/29/18 11:30 11/01/18 09:59 Heparin SUB-Q 5,000 unit Q12HR ALLEY Administration Norepinephrine 8 mg/ Sodium 250 mls @ 3.75 mls/hr 10/28/18 18:00 Chloride IV TITR ALLEY Protocol 2 MCG/MIN Dobutamine HCl/Dextrose 500 mg in 250 mls @ 3.366 mls/hr 10/29/18 11:00 11/01/18 12:05 Dobutrex Drip 500mg/D5w 250ml IV 2.5 mcg/kg/min TITR ALLEY 4.208 mls/hr Titration Protocol 2 MCG/KG/MIN Phenylephrine HCl 100 mg/ 100 mls @ 6 mls/hr 10/29/18 10:30 11/01/18 08:30 Sodium Chloride IV 80 mcg/min TITR ALLEY 4.8 mls/hr Titration Protocol 100 MCG/MIN Sodium Chloride 100 mls @ 999 mls/hr 10/30/18 12:00 Nacl 0.9% IV LESLIE PRN Hypotension Insulin Glargine 5 units 10/31/18 22:00 10/31/18 21:39 Lantus SUB-Q 5 units QHS ALLEY Administration Insulin Human Lispro 0 unit 10/24/18 12:00 11/01/18 12:48 Humalog SUB-Q 6 unit Q6HR ALLEY Administration Protocol Latanoprost 1 drops 10/17/18 18:00 10/31/18 19:48 Latanoprost 0.005% OU 1 drops QPM ALLEY Administration Levetiracetam 500 mg 10/21/18 10:00 11/01/18 10:00 Keppra PO 500 mg BID ALLEY Administration Midodrine 10 mg 10/31/18 16:00 11/01/18 13:15 Proamatine PO 10 mg TID@0800,1200,1600 ALLEY Administration Simple Syrup 15 ml 10/25/18 09:18 Simple Syrup FEEDTUBE PRN PRN Hypoglycemia Simple Syrup 30 ml 10/25/18 09:18 Simple Syrup FEEDTUBE PRN PRN Hypoglycemia Sodium Bicarbonate 325 mg 10/17/18 17:00 11/01/18 09:58 Sodium Bicarbonate PO 325 mg DAILY ALLEY Administration Sodium Bicarbonate 325 mg 10/25/18 09:18 Sodium Bicarbonate FEEDTUBE PRN PRN For Clogged Feeding Tube Nutrition/Malnutrition Assess - Dietary Evaluation Nutrition/Malnutrition Findings: Nutrition Notes Start: 10/18/18 14:28 Freq: Status: Active Protocol: Document 10/29/18 14:05 RM (Rec: 10/29/18 14:12 RM [id number]) Nutrition Notes Initial or Follow up Reassessment Current Diagnosis Acute Kidney Injury,CKD(stage I-IV),Coronary Artery Disease, Diabetes,Hypertension,Heart Failure,Stroke,Hyperlipidemia Other Pertinent Diagnosis Dementia Current Diet Nepro at 30 ml/hr Labs/Tests Na 134 K 3.9 Cr 6.5 Pertinent Medications Reviewed Height 5 ft 2 in Weight 56.1 kg [place] Body Weight (kg) 50.00 BMI 22.6 Subjective/Other Information Procedure being done in room at time of visit. Per nurse Nepro is infusing at 15 ml/hr and she plans to advance it to goal rate. Percent of energy/protein needs met: 48%/50% Burn Absent Trauma Absent #2 Nutrition Diagnosis Malnutrition Diagnosis Progress(for reassessment Continues documentation) #1 Nutrition Diagnosis Inadequate oral intake Diagnosis Progress(for reassessment Continues documentation) Is patient on ventilator? No Is Patient Ambulatory and/or Out of Bed No REE-(Lebo-St. Jeor-confined to bed) 1288.476 Kcal/Kg value to use for calculation 24 Approximate Energy Requirements Using 1346 kcal/Kg Calculation Used for Recommendations Lebo-St Jeor Additional Notes Protein Needs: 69-86g(1.2-1.5g /kg) Fluid Needs: 1 ml/kcal Nutrition Intervention Nutrition Support: Nepro at 30ml/hr Flush with 120ml q4h Kcal 1,296 Protein (gm) 58 Fluid (mL) 523 Goal #1 TF tolerance Goal #2 Meet at least 80% of kcal and protein needs via TF Anticipated Discharge Needs: Unable to determine at this time Follow-Up By: 11/02/18 Additional Comments Follow for TF tolerance
--- NOTE | 2018-11-01 17:16 | Hem/Onc Progress Note ---
Assessment and Plan 1. low plt - Elevated LDH. Smear has been evaluated. HIT NEGATIVE, [id number] 90% 2. Renal impairment. Nephrology team following the patient. SPEP normal 3. low plt - deficiency investigation. The smear evaluation is being done. Th e platelet counts at admission were normal and then have gone down. The cause of thrombocytopenia unclear. Her mentation is also not perfect. I will follow the trend of the counts. b12 - folate - iron ferritin normal 4. Cerebrovascular accident?. neurology following. 5. Electrolyte imbalance. 6. Vitamin D deficiency. 8. History of diabetes. 9. History of hypertension. 10. History of seizure. 11. Hyperlipidemia. neurology following - cva Stroke: - Likely cardio-embolic, as b/l infarcts seen on MRI. - MRA head/neck did not reveal any significant stenosis - Echo: EF 10-15%, bubble study negative, LA moderately dilated - EDINSON did not reveal any evidence of intracardiac thrombi. 11/01 - plt normalized hb stable [employer] [id number] 90% - less likely TTP plt rare schistocytes HIT neg SPEP no monoclonal band LDH lower - last 400, in past this was 800s will follow pt anemia on hd - Patient Problems (1) Thrombocytopenia Current Visit: Yes Status: Acute Subjective Date of service: 11/01/18 Principal diagnosis: anemia Interval history: unresponsive on HEModialysis Objective - Exam Narrative Exam: Pain Not evaluable General appearance no acute distress Performance status -completely disabled Eyes EOM not able to evaluate ENT no nose/ear bleed LNs cervical not palpable Neck Not evaluable Respiratory Normal Breath sounds - CTA anteriorly CVS S1 S2 + Extremities normal temperature/ no edema General GI Soft non tender Rectal deferred Female - deferred Skin warm Musculoskeletal moves left arm Neurologically OPENS EYES - moves left arm - Constitutional Vitals: Last Vital Signs Temp 97.8 F 11/01/18 12:00 Pulse 92 H 11/01/18 13:00 Resp 18 11/01/18 13:00 BP 91/62 11/01/18 13:00 Pulse Ox 98 11/01/18 13:00 - Labs Lab Results: Laboratory Results - last 24 hr 10/31/18 10/31/18 10/31/18 18:26 21:33 23:43 WBC RBC Hgb Hct MCV MCH MCHC RDW Plt Count Sodium Potassium Chloride Carbon Dioxide Anion Gap BUN Creatinine Estimated GFR BUN/Creatinine Ratio Glucose POC Glucose 314 H 268 H 264 H Calcium 11/01/18 11/01/18 11/01/18 04:52 04:52 04:52 WBC 13.9 H RBC 2.68 L Hgb 8.2 L Hct 25.9 L MCV 97 MCH 31 MCHC 32 RDW 16.7 H Plt Count 307 Sodium 138 Potassium 4.2 Chloride 95.4 L Carbon Dioxide 24 Anion Gap 23 BUN 67 H Creatinine 5.3 H Estimated GFR 10 BUN/Creatinine Ratio 13 Glucose 240 H POC Glucose 276 H Calcium 8.5 11/01/18 12:37 WBC RBC Hgb Hct MCV MCH MCHC RDW Plt Count Sodium Potassium Chloride Carbon Dioxide Anion Gap BUN Creatinine Estimated GFR BUN/Creatinine Ratio Glucose POC Glucose 300 H Calcium Medications & Allergies - Medications Allergies/Adverse Reactions: Allergies NSAIDS (Non-Steroidal Anti-Inflamma Adverse Reaction (Verified 01/02/17 05:56) Unknown Tetracyclines Adverse Reaction (Verified 09/26/14 12:09) Unknown Home Medications: Home Medications Medication Instructions Recorded Confirmed Last Taken Type Ergocalciferol [Vitamin D2] 50,000 unit PO QWEEK capsule 09/25/16 10/17/18 Unknown Rx Latanoprost 0.005% 1 drop OP QPM 01/02/17 10/17/18 Unknown History Sodium Bicarbonate 325 mg PO DAILY 01/02/17 10/17/18 Unknown History Clopidogrel [Plavix] 75 mg PO DAILY #30 tablet 01/08/17 10/17/18 Unknown Rx Docusate Sodium [Colace CAP] 100 mg PO BID #60 capsule 01/08/17 10/17/18 Unknown Rx Famotidine [Pepcid] 10 mg PO BID #60 tablet 01/08/17 10/17/18 Unknown Rx Gabapentin [Neurontin] 300 mg PO QHS #30 capsule 01/08/17 10/17/18 Unknown Rx Simvastatin [Zocor TAB] 20 mg PO QHS #60 tablet 01/08/17 10/17/18 Unknown Rx glipiZIDE [Glucotrol] 5 mg PO QDDIAB #60 tablet 01/08/17 10/17/18 Unknown Rx hydrALAZINE [Apresoline TAB] 10 mg PO Q8HR #90 tablet 01/08/17 10/17/18 Unknown Rx levETIRAcetam [Keppra TAB] 500 mg PO BID #60 tablet 01/08/17 10/17/18 Unknown Rx Active Medications: Generic Name Dose Route Start Last Admin Trade Name Freq PRN Reason Stop Dose Admin Acetaminophen 650 mg 10/29/18 15:49 10/29/18 16:46 Tylenol FEEDTUBE 650 mg Q6H PRN Administration Pain, Mild (1-3) Lipase/Protease/Amylase 1 each 10/25/18 09:18 10/28/18 09:[address] 10,500 Unit FEEDTUBE 1 each PRN PRN Administration For Clogged Feeding Tube Clopidogrel Bisulfate 75 mg 10/21/18 11:00 11/01/18 09:58 Plavix PO 75 mg QDAY ALLEY Administration Ergocalciferol 50,000 unit 10/24/18 10:00 10/31/18 10:31 Vitamin D2 PO 50,000 unit Sa ALLEY Administration Famotidine 20 mg 10/21/18 10:00 11/01/18 10:00 Pepcid PO 20 mg DAILY ALLEY Administration Gabapentin 300 mg 10/17/18 22:00 10/31/18 21:33 Neurontin PO 300 mg QHS ALLEY Administration Heparin Sodium (Porcine) 5,000 unit 10/29/18 11:30 11/01/18 09:59 Heparin SUB-Q 5,000 unit Q12HR ALLEY Administration Norepinephrine 8 mg/ Sodium 250 mls @ 3.75 mls/hr 10/28/18 18:00 Chloride IV TITR ALLEY Protocol 2 MCG/MIN Dobutamine HCl/Dextrose 500 mg in 250 mls @ 3.366 mls/hr 10/29/18 11:00 11/01/18 12:05 Dobutrex Drip 500mg/D5w 250ml IV 2.5 mcg/kg/min TITR ALLEY 4.208 mls/hr Titration Protocol 2 MCG/KG/MIN Phenylephrine HCl 100 mg/ 100 mls @ 6 mls/hr 10/29/18 10:30 11/01/18 08:30 Sodium Chloride IV 80 mcg/min TITR ALLEY 4.8 mls/hr Titration Protocol 100 MCG/MIN Sodium Chloride 100 mls @ 999 mls/hr 10/30/18 12:00 Nacl 0.9% IV LESILE PRN Hypotension Insulin Glargine 5 units 10/31/18 22:00 10/31/18 21:39 Lantus SUB-Q 5 units QHS ALLEY Administration Insulin Human Lispro 0 unit 10/24/18 12:00 11/01/18 12:48 Humalog SUB-Q 6 unit Q6HR ALLEY Administration Protocol Latanoprost 1 drops 10/17/18 18:00 10/31/18 19:48 Latanoprost 0.005% OU 1 drops QPM ALLEY Administration Levetiracetam 500 mg 10/21/18 10:00 11/01/18 10:00 Keppra PO 500 mg BID ALLEY Administration Midodrine 10 mg 10/31/18 16:00 11/01/18 13:15 Proamatine PO 10 mg TID@0800,1200,1600 ALLEY Administration Simple Syrup 15 ml 10/25/18 09:18 Simple Syrup FEEDTUBE PRN PRN Hypoglycemia Simple Syrup 30 ml 10/25/18 09:18 Simple Syrup FEEDTUBE PRN PRN Hypoglycemia Sodium Bicarbonate 325 mg 10/17/18 17:00 11/01/18 09:58 Sodium Bicarbonate PO 325 mg DAILY ALLEY Administration Sodium Bicarbonate 325 mg 10/25/18 09:18 Sodium Bicarbonate FEEDTUBE PRN PRN For Clogged Feeding Tube
[2018-11-01] MEDS: LATANOPROST 0.005% OU SCH (17:24)
--- NOTE | 2018-11-01 17:42 | Progress Note ---
Assessment and Plan Cultures: 10/17/2018 urine culture: No growth 10/23/2018 and blood culture: No growth 10/26/2018 blood culture: no growth A/P: 63-year-old female who was admitted to the hospital on 10/17/2018 with altered mental status. She has a history of hypertension, diabetes mellitus type 2, CVA, dementia, CAD status post CABG, CKD stage IV. Upon evaluation in the ER, she was found to have worsening renal function requiring urgent hemodialysis: 1) Isolated fevers: Improved, 2 episodes so far throughout the hospitalization. Blood cultures have remained negative. No evidence of pneumonia. Chest x-ray shows bilateral pleural effusions. She does not appear to have any respiratory distress. Wounds are quite superficial and do not appear to be infected. A central fever is quite possible. Given hypotension / shock, persistent low grade fevers with leucocytosis, will stop empiric antibiotics today given improvement. 2) Bilateral CVA: ?cardioembolic stroke. Low EF of 5-10%, EDINSON negative for thrombus or vegetation. 3) ARF / ESRD: on hemodialysis. Recs: Stopped empiric antibiotics no evidence of infectious process found suspect ?central fever as well as cardiogenic shock/global ischemia/hypoperfusion overall poor prognosis, discussed with sister at bedside We will sign off. Please call us if any new questions arise. 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 Afebrile. White count mildly elevated, no other signs of new infection. Objective - Exam Narrative Exam: Physical Exam: Constitutional: no distress, non verbal, doesn't follow commands Head, Ears, Nose: Normocephalic, atraumatic. External ears, nose normal Eyes: Conjunctivae/corneas clear. No icterus. No ptosis. Neck: Supple, no meningeal signs Oral: Unable to examine Cardiovascular: S1, S2 normal. Respiratory: Good air entry, clear to auscultation bilaterally GI: Soft, non-tender; bowel sounds normal. No peritoneal signs Musculoskeletal: No pedal edema, no cyanosis. Skin: No rash or abscess. Multiple hyperpigmented spots, ?early calciphylaxis. Superficial wounds on legs, with dressings Hem/Lymphatic: No palpable cervical or supraclavicular nodes. No lymphangitis Psych: no agitation Neurological: drowsy, non verbal, non communicative - Constitutional Vitals: Vital Signs Temp Pulse Resp BP Pulse Ox 97.8 F 92 H 18 91/62 98 11/01/18 12:00 11/01/18 13:00 11/01/18 13:00 11/01/18 13:00 11/01/18 13:00 Temperature -Last 24 Hours Temperature 97.8 F Temperature 97.6 F Temperature 99.4 F Temperature 98.9 F Temperature 99.7 F - Labs CBC & Chem 7: 11/01/18 04:52 11/01/18 04:52 Labs: Abnormal lab results 10/31/18 10/31/18 10/31/18 Range/Units 18:26 21:33 23:43 WBC (4.5-11.0) K/mm3 RBC (3.65-5.03) M/mm3 Hgb (10.1-14.3) gm/dl Hct (30.3-42.9) % RDW (13.2-15.2) % Chloride (98-107) mmol/L BUN (7-17) mg/dL Creatinine (0.7-1.2) mg/dL Glucose (65-100) mg/dL POC Glucose 314 H 268 H 264 H (70-105) 11/01/18 11/01/18 11/01/18 Range/Units 04:52 04:52 04:52 WBC 13.9 H (4.5-11.0) K/mm3 RBC 2.68 L (3.65-5.03) M/mm3 Hgb 8.2 L (10.1-14.3) gm/dl Hct 25.9 L (30.3-42.9) % RDW 16.7 H (13.2-15.2) % Chloride 95.4 L (98-107) mmol/L BUN 67 H (7-17) mg/dL Creatinine 5.3 H (0.7-1.2) mg/dL Glucose 240 H (65-100) mg/dL POC Glucose 276 H (70-105) 11/01/18 Range/Units 12:37 WBC (4.5-11.0) K/mm3 RBC (3.65-5.03) M/mm3 Hgb (10.1-14.3) gm/dl Hct (30.3-42.9) % RDW (13.2-15.2) % Chloride (98-107) mmol/L BUN (7-17) mg/dL Creatinine (0.7-1.2) mg/dL Glucose (65-100) mg/dL POC Glucose 300 H (70-105)
[2018-11-01] MEDS: NEURONTIN PO SCH (21:46)
[2018-11-01] MEDS: LANTUS SUB-Q SCH (21:46)
[2018-11-02] MEDS: HumaLOG SUB-Q SCH ×3 (00:23→12:30)
--- NOTE | 2018-11-02 07:22 | Progress Note ---
Assessment and Plan Assessment and plan: Patient is a 63 yo woman with hypertension, dm type 2, gerd, cva, dementia, cad s/p cabg, seizure disorder, OA and CKD 4 (last Cr here was 2.2 on 01/08/2017) who presented to [facility] ED with AMS x 3 days. She was admitted for severe renal failure/uremic encephalopathy with hyperkalemia. Creatinine was found to be 5.6. She underwent emergent Hemodialysis * CT head without contrast IMPRESSION: 1. Recent infarcts in the left MCA and left METAL SPRAYER territories. Although there is no volume loss associated with METAL SPRAYER infarct, the hypoattenuation of the parenchyma and loss of laboy-white differentiation is more conspicuous, suggesting this may be an older infarct. 2. No acute hemorrhage. Report of these findings was called to Dr. Novak in the emergency department at the time of dictation. * pCXR Impression: Increasing right basilar effusion/volume loss * 10/21/2017 EDINSON Conclusions: Left ventricular chamber size is severely dilated, global left ventricular systolic function is severely decreased, estimated EF is 10-15%, RVSF is severely reduced, No ASD, no endocarditis or cardioembolic source * MRI brain without contrast BRAIN / INTRACRANIAL CONTENTS: Multiple ischemic areas seen - the larger areas were seen on recent CT. Branch MCA infarct seen in the middle and inferior frontal gyral region on the left. Branch METAL SPRAYER infarct seen on the left, including calcarine cortex. Small focus of ischemia seen in the left precuneus. There are small foci of ischemia seen in the superior frontal gyrus and paracentral lobule regions on the right, superiorly. Minimal involvement of the genu/rostrum of the corpus callosum is suggested. Punctate involvement seen in the right parietal temporal region. Other, scattered, punctate areas of ischemia may be present as well. Because of these findings, embolic phenomena should be considered. Otherwise, no acute hemorrhage, mass effect, midline shift, hydrocephalus, or acute, large territorial infarct. No chronic infarct or atrophy. Lacunar infarcts suggested in the thalamic regions. There are moderate areas of increased signal intensity on FLAIR imaging in the white matter of the cerebral hemispheres, as well as the gangliocapsular regions. These are nonspecific findings and may be related to microangiopathy (hypertension, diabetes, atherosclerosis), given the patient's age. CRANIOCERVICAL JUNCTION: No significant abnormality. VASCULAR FLOW-VOIDS: No significant abnormality. ORBITS: No significant abnormality of visualized orbits. SINUSES / MASTOIDS: There is mild mucosal thickening with the ethmoids. ADDITIONAL FINDINGS: None. IMPRESSION: 1. Multiple areas of ischemia as described above, worrisome for embolic phenomenon. No evidence of hemorrhagic transformation at this time. * 10/27/2018 CT brain without Impression: IMPRESSION: No acute intracranial proce ss. Evolving ischemic infarcts in the left frontal lobe and left occipital lobe as described. * US chest Impression: Small bilateral pleural effusions AMS most likely due to Acute Embolic Ischemic Strokes/CVA: supportive care, poor prognosis Cardiogenic Shock: did not respond to bolus therefore moved to ICU on 10/28/18 to start Vasopressor Cardiomyopathy, EF 10-15%, Cardiology is following Acute metabolic encephalopathy, poa:work up in process ARF/CKD 4 vasomotor +ATN: hemodialysis started Hyperkalemia: treated with HD, Staff Nuclear Medicine Technologist following, monitor bmp closely Glaucoma: continue latanoprost eyedrops Vitamin D deficiency: Continue vitamin D Hyperlipidemia: Continue statins Peripheral neuropathy: Continue gabapentin Seizure disorder: Continue Keppra Hypertension: Continue antihypertensives DVT prophylaxis: heparin and GI prophylaxis , now DNR 10/26/18: Continue inpatient care, was going to SNF but spiked a temp of 101 F on 10/26/18 at 0438 am, this is her second temperature spike, first temp was 10/24/18 @ 0800am of 100.8F. repeat Blood cultures pending, pCXR Impression: Increasing right basilar effusion/volume loss, UA not done because she doesn't make enough urine, She still has thomas and NGT in place. 10/27/18: Consulted ID because patient does have a line and spiking fevers 10/28/18: Unable to do HD due to AMS and patient is Hypotensive, really did not respond to 500 ml ns ivf resuscitative bolus. Will transfer back to ICU. Still with low grade temp of 100.2 F then later 100.3 F I called sister Danay [phone], discussed Hospice, but her main concern is stopping Hemodialysis in Hospice care. She received another bolus of 500 ml 10/29/18: Still hypotensive, left hand peripheral IV; therefore, will need central line for vasopressor, bp too low for Hemodialysis on MWF schedule. Also, NGT still in place 10/30/18: on Neosyn and dobutamine gtt, HD done with vasopressors, Family has decided to make her DNR, which is a good option considers her poor detention prognosis. 10/31/18: still on Neosyn vasopressor and dobutamine gtt. still bp too low for HD without assistance, I called sister Danay to give her the update, wants family meeting, d/w Dr. Dillon, to defer Dr. Monsalve for Friday family meeting. 11/01/18: still on neosyn gtt, dobutamine gtt, add Midodrine. Sister Danay wants to speak with Dr. Monsalve again for possible hospice 11/02/18: still on neosyn gtt and dobutamin with Midodrine, looks worse clinically with agonal type breathing. Dr. Monsalve had family meeting today, pt is going to inpatient hospice once bed is available poor prognosis CCT 35 minutes History Interval history: Patient was seen and examined. Follow-up on current diagnosis of CVA. No overnight events reported to me. Patient is nonverbal. Imaging, nursing note, chart, labs and old chart reviewed. Hospitalist Physical - Physical exam Narrative exam: Gen: ill appearing, chronically disable appearing, chronically non-verbal HEENT: NCAT, EOMI, PERRL, OP Clear Neck: supple, no adenopathy, no thyromegaly, no JVD CVS/Heart: RRR, normal S1S2, pulses present bilaterally Chest/Lungs: CTA B, Symmetrical chest expansion, good air entry bilaterally GI/Abdomen: soft, NTND, good bowel sounds, no guarding or rebound /Bladder: no suprapubic tenderness, no CVA or paraspinal tenderness Extermity/Skin: diffuse hyperpigmented coin lichenification lesion MSK: not following commands Neuro: not following commands Psych: lethargic - Constitutional Vitals: Temp Pulse Resp BP Pulse Ox 99.1 F 86 20 101/64 100 11/02/18 03:50 11/02/18 06:00 11/02/18 06:00 11/02/18 06:00 11/02/18 06:00 General appearance: Present: no acute distress Results - Labs CBC & Chem 7: 11/01/18 04:52 11/01/18 04:52 Labs: Laboratory Last Values WBC 13.9 K/mm3 (4.5-11.0) H 11/01/18 04:52 RBC 2.68 M/mm3 (3.65-5.03) L 11/01/18 04:52 Hgb 8.2 gm/dl (10.1-14.3) L 11/01/18 04:52 Hct 25.9 % (30.3-42.9) L 11/01/18 04:52 MCV 97 fl (79-97) 11/01/18 04:52 MCH 31 pg (28-32) 11/01/18 04:52 MCHC 32 % (30-34) 11/01/18 04:52 RDW 16.7 % (13.2-15.2) H 11/01/18 04:52 Plt Count 307 K/mm3 (140-440) 11/01/18 04:52 Lymph % (Auto) 7.1 % (13.4-35.0) L 10/29/18 00:56 [place] % (Auto) 9.7 % (0.0-7.3) H 10/29/18 00:56 Eos % (Auto) 0.8 % (0.0-4.3) 10/29/18 00:56 Baso % (Auto) 0.6 % (0.0-1.8) 10/29/18 00:56 Lymph # 0.9 K/mm3 (1.2-5.4) L 10/29/18 00:56 [place] # 1.2 K/mm3 (0.0-0.8) H 10/29/18 00:56 Eos # 0.1 K/mm3 (0.0-0.4) 10/29/18 00:56 Baso # 0.1 K/mm3 (0.0-0.1) 10/29/18 00:56 Add Manual Diff Complete 10/24/18 04:50 Total Counted 100 10/24/18 04:50 Seg Neutrophils % 81.8 % (40.0-70.0) H 10/29/18 00:56 Seg Neuts % (Manual) 79.0 % (40.0-70.0) H 10/24/18 04:50 4.0 % 10/24/18 04:50 11.0 % (13.4-35.0) L 10/24/18 04:50 Reactive Lymphs % (Man) 0 % 10/24/18 04:50 6.0 % (0.0-7.3) 10/24/18 04:50 0 % (0.0-4.3) 10/24/18 04:50 0 % (0.0-1.8) 10/24/18 04:50 0 % 10/24/18 04:50 0 % 10/24/18 04:50 0 % 10/24/18 04:50 0 % 10/24/18 04:50 Nucleated RBC % Not Reportable 10/24/18 04:50 Seg Neutrophils # 10.2 K/mm3 (1.8-7.7) H 10/29/18 00:56 Seg Neutrophils # Man 8.7 K/mm3 (1.8-7.7) H 10/24/18 04:50 Band Neutrophils # 0.4 K/mm3 10/24/18 04:50 1.2 K/mm3 (1.2-5.4) 10/24/18 04:50 Abs React Lymphs (Man) 0.0 K/mm3 10/24/18 04:50 0.7 K/mm3 (0.0-0.8) 10/24/18 04:50 0.0 K/mm3 (0.0-0.4) 10/24/18 04:50 0.0 K/mm3 (0.0-0.1) 10/24/18 04:50 0.0 K/mm3 10/24/18 04:50 0.0 K/mm3 10/24/18 04:50 0.0 K/mm3 10/24/18 04:50 Blast Cells # 0.0 K/mm3 10/24/18 04:50 Pathologist Review 10/24/18 04:50 WBC Morphology Not Reportable 10/23/18 05:24 Hypersegmented Neuts Not Reportable 10/24/18 04:50 Hyposegmented Neuts Not Reportable 10/24/18 04:50 Hypogranular Neuts Not Reportable 10/24/18 04:50 Few 10/24/18 04:50 Not Reportable 10/24/18 04:50 Not Reportable 10/24/18 04:50 Not Reportable 10/24/18 04:50 Not Reportable 10/24/18 04:50 Not Reportable 10/24/18 04:50 Consistent w auto 10/24/18 04:50 Not Reportable 10/24/18 04:50 Plt Clumps, EDTA Not Reportable 10/24/18 04:50 Not Reportable 10/24/18 04:50 Not Reportable 10/24/18 04:50 Not Reportable 10/24/18 04:50 Plt Morphology Comment Not Reportable 10/24/18 04:50 RBC Morphology Not Reportable 10/24/18 04:50 Dimorphic RBCs Not Reportable 10/24/18 04:50 Not Reportable 10/24/18 04:50 Few 10/24/18 04:50 Not Reportable 10/24/18 04:50 1+ 10/24/18 04:50 Not Reportable 10/24/18 04:50 1+ 10/24/18 04:50 Not Reportable 10/24/18 04:50 Not Reportable 10/24/18 04:50 Not Reportable 10/24/18 04:50 Rare 10/24/18 04:50 Not Reportable 10/24/18 04:50 Few 10/24/18 04:50 Not Reportable 10/24/18 04:50 Not Reportable 10/24/18 04:50 Not Reportable 10/24/18 04:50 3+ 10/24/18 04:50 Not Reportable 10/24/18 04:50 Not Reportable 10/24/18 04:50 Not Reportable 10/24/18 04:50 Acanthocytes (Spur) Not Reportable 10/24/18 04:50 Rouleaux Not Reportable 10/24/18 04:50 Not Reportable 10/24/18 04:50 Not Reportable 10/24/18 04:50 Not Reportable 10/24/18 04:50 Not Reportable 10/24/18 04:50 Hem Pathologist Commnt Sent to pathology 10/24/18 04:50 PT 20.6 Sec. (12.2-14.9) H 10/17/18 10:19 INR 1.81 (0.87-1.13) H 10/17/18 10:19 APTT 35.6 Sec. (24.2-36.6) 10/17/18 10:19 18.7 Sec. (15.1-19.6) 10/17/18 10:19 Heparin Anti-Xa, Unfract Negative (Negative) 10/19/18 08:34 POC ABG pH 7.436 (7.35-7.45) 10/23/18 20:51 POC ABG pCO2 34.3 (35-45) L 10/23/18 20:51 POC ABG pO2 95 (80-105) 10/23/18 20:51 POC ABG HCO3 23.1 (22-26 mml/L) 10/23/18 20:51 POC ABG Total CO2 24 (23-27mmol/L) 10/23/18 20:51 POC ABG O2 Sat 98 10/23/18 20:51 POC ABG Base Excess -1 ((-2) - (+3)mmol/L) 10/23/18 20:51 24 % 10/23/18 20:51 Sodium 138 mmol/L (137-145) 11/01/18 04:52 Potassium 4.2 mmol/L (3.6-5.0) 11/01/18 04:52 Chloride 95.4 mmol/L (98-107) L 11/01/18 04:52 Carbon Dioxide 24 mmol/L (22-30) 11/01/18 04:52 23 mmol/L 11/01/18 04:52 BUN 67 mg/dL (7-17) H 11/01/18 04:52 5.3 mg/dL (0.7-1.2) H 11/01/18 04:52 Estimated GFR 10 ml/min 11/01/18 04:52 13 % 11/01/18 04:52 Glucose 240 mg/dL (65-100) H 11/01/18 04:52 POC Glucose 225 (70-105) H 11/02/18 05:22 Lactic Acid 1.30 mmol/L (0.7-2.0) 10/23/18 14:59 Calcium 8.5 mg/dL (8.4-10.2) 11/01/18 04:52 Phosphorus 5.30 mg/dL (2.5-4.5) H D 10/23/18 05:24 Magnesium 1.90 mg/dL (1.7-2.3) 10/28/18 05:58 Iron 55 ug/dL (37-170) 10/19/18 08:34 TIBC 193 mcg/dL (250-450) L 10/19/18 08:34 2450.0 ng/mL (13.0-400.0) H 10/19/18 08:34 0.50 mg/dL (0.1-1.2) 10/26/18 06:13 AST 36 units/L (5-40) 10/26/18 06:13 ALT 18 units/L (7-56) 10/26/18 06:13 251 units/L (35-129) H 10/26/18 06:13 28.0 umol/L (25-60) 10/26/18 19:36 458 units/L (91-180) H 10/26/18 06:13 3216 units/L (30-135) H 10/17/18 15:15 4.720 ng/mL (0.00-0.029) H* 10/17/18 Unknown 24.10 mg/dL (0.00-1.30) H 10/23/18 14:59 5.5 g/dL (6.1-8.1) L 10/20/18 05:07 5.9 g/dL (6.3-8.2) L 10/26/18 06:13 3.0 g/dL (3.9-5) L 10/26/18 06:13 1.0 % 10/26/18 06:13 0.4 g/dL (0.2-0.3) H 10/20/18 05:07 0.9 g/dL (0.5-0.9) 10/20/18 05:07 0.3 g/dL (0.2-0.5) 10/20/18 05:07 0.8 g/dL (0.8-1.7) 10/20/18 05:07 Abnorm Protein Band 1 see below 10/20/18 05:07 PEP Interpretation see below H 10/20/18 05:07 Triglycerides 102 mg/dL (2-149) 10/17/18 Unknown Cholesterol 198 mg/dL (50-199) 10/17/18 Unknown 116 mg/dL (50-130) 10/17/18 Unknown 88 mg/dL (40-59) H 10/17/18 Unknown 2.25 % 10/17/18 Unknown See scanned result 10/19/18 08:34 Vitamin B12 1296 pg/mL (211-911) H 10/19/18 08:34 8.42 ng/mL (7.3-26.0) 10/19/18 08:34 TSH 1.030 mlU/mL (0.270-4.200) 10/17/18 Unknown Free T4 1.26 ng/dL (0.76-1.46) 10/17/18 Unknown Yellow (Yellow) 10/17/18 11:25 Slightly-cloudy (Clear) 10/17/18 11:25 5.0 (5.0-7.0) 10/17/18 11:25 Ur Specific [place] 1.019 (1.003-1.030) 10/17/18 11:25 100 mg/dl mg/dL (Negative) 10/17/18 11:25 150 mg/dL (Negative) 10/17/18 11:25 Tr mg/dL (Negative) 10/17/18 11:25 Sm (Negative) 10/17/18 11:25 Neg (Negative) 10/17/18 11:25 Neg (Negative) 10/17/18 11:25 < 2.0 mg/dL (<2.0) 10/17/18 11:25 Ur Leukocyte Esterase Tr (Negative) 10/17/18 11:25 3.0 /HPF (0.0-6.0) 10/17/18 11:25 2.0 /HPF (0.0-6.0) 10/17/18 11:25 Few /HPF 10/17/18 11:25 None seen (None Seen) 10/17/18 13:16 60 ml 10/21/18 18:19 196.7 mg/dL (0.1-20.0) H 10/21/18 18:19 Ur Creatinine 24 Hour 0.1 (0.8-2.8) L 10/21/18 18:19 Height (in) 62.0 inches 10/20/18 13:45 Weight (lb) 126.5 lbs 10/20/18 13:45 3 10/20/18 13:45 Protein/Creatinin Ratio 0.69 10/17/18 13:16 12 mmol/L 10/17/18 13:34 191 mg/dL (5-11.8) H 10/17/18 13:16 Salicylates < 0.3 mg/dL (2.8-20.0) L 10/17/18 Unknown Acetaminophen < 5.0 ug/mL (10.0-30.0) L 10/17/18 Unknown Plasma/Serum Alcohol < 0.01 % (0-0.07) 10/17/18 Unknown Immunofix Electrophor see below 10/20/18 05:07 Heparin-induced Plt Ab Negative (Negative) 10/19/18 08:34 UF Heparin High Dose 0 % Release 10/19/18 08:34 KAILYN UFH Low Dose 0.1 0 % Release 10/19/18 08:34 KAILYN UFH Low Dose 0.5 0 % Release 10/19/18 08:34 Hepatitis A IgM Ab Non-reactive (NonReactive) 10/17/18 15:15 Hep Bs Antigen Non-reactive (Negative) 10/17/18 15:15 Hep B Core IgM Ab Non-reactive (NonReactive) 10/17/18 15:15 Non-reactive (NonReactive) 10/17/18 15:15 Rare 10/17/18 15:43 Flexitest 1 10/20/18 10:53 Active Medications - Current Medications Current Medications: Generic Name Dose Route Start Last Admin Trade Name Freq PRN Reason Stop Dose Admin Acetaminophen 650 mg 10/29/18 15:49 10/29/18 16:46 Tylenol FEEDTUBE 650 mg Q6H PRN Administration Pain, Mild (1-3) Lipase/Protease/Amylase 1 each 10/25/18 09:18 10/28/18 09:[address] 10,500 Unit FEEDTUBE 1 each PRN PRN Administration For Clogged Feeding Tube Clopidogrel Bisulfate 75 mg 10/21/18 11:00 11/01/18 09:58 Plavix PO 75 mg QDAY ALLEY Administration Ergocalciferol 50,000 unit 10/24/18 10:00 10/31/18 10:31 Vitamin D2 PO 50,000 unit Sa ALLEY Administration Famotidine 20 mg 10/21/18 10:00 11/01/18 10:00 Pepcid PO 20 mg DAILY ALLEY Administration Gabapentin 300 mg 10/17/18 22:00 11/01/18 21:46 Neurontin PO 300 mg QHS ALLEY Administration Heparin Sodium (Porcine) 5,000 unit 10/29/18 11:30 11/01/18 21:49 Heparin SUB-Q 5,000 unit Q12HR ALLEY Administration Norepinephrine 8 mg/ Sodium 250 mls @ 3.75 mls/hr 10/28/18 18:00 Chloride IV TITR ALLEY Protocol 2 MCG/MIN Dobutamine HCl/Dextrose 500 mg in 250 mls @ 3.366 mls/hr 10/29/18 11:00 11/01/18 12:05 Dobutrex Drip 500mg/D5w 250ml IV 2.5 mcg/kg/min TITR ALLEY 4.208 mls/hr Titration Protocol 2 MCG/KG/MIN Phenylephrine HCl 100 mg/ 100 mls @ 6 mls/hr 10/29/18 10:30 11/02/18 05:30 Sodium Chloride IV 125 mcg/min TITR ALLEY 7.5 mls/hr Titration Protocol 100 MCG/MIN Sodium Chloride 100 mls @ 999 mls/hr 10/30/18 12:00 Nacl 0.9% IV LESLIE PRN Hypotension Insulin Glargine 5 units 10/31/18 22:00 11/01/18 21:46 Lantus SUB-Q 5 units QHS ALLEY Administration Insulin Human Lispro 0 unit 10/24/18 12:00 11/02/18 06:17 Humalog SUB-Q 3 unit Q6HR ALLEY Administration Protocol Latanoprost 1 drops 10/17/18 18:00 11/01/18 17:24 Latanoprost 0.005% OU 1 drops QPM ALLEY Administration Levetiracetam 500 mg 10/21/18 10:00 11/01/18 21:46 Keppra PO 500 mg BID ALLEY Administration Midodrine 10 mg 10/31/18 16:00 11/01/18 17:23 Proamatine PO 10 mg TID@0800,1200,1600 ALLEY Administration Simple Syrup 15 ml 10/25/18 09:18 Simple Syrup FEEDTUBE PRN PRN Hypoglycemia Simple Syrup 30 ml 10/25/18 09:18 Simple Syrup FEEDTUBE PRN PRN Hypoglycemia Sodium Bicarbonate 325 mg 10/17/18 17:00 11/01/18 09:58 Sodium Bicarbonate PO 325 mg DAILY ALLEY Administration Sodium Bicarbonate 325 mg 10/25/18 09:18 Sodium Bicarbonate FEEDTUBE PRN PRN For Clogged Feeding Tube Nutrition/Malnutrition Assess - Dietary Evaluation Nutrition/Malnutrition Findings: Nutrition Notes Start: 10/18/18 14:28 Freq: Status: Active Protocol: Document 10/29/18 14:05 RM (Rec: 10/29/18 14:12 RM [id number]) Nutrition Notes Initial or Follow up Reassessment Current Diagnosis Acute Kidney Injury,CKD(stage I-IV),Coronary Artery Disease, Diabetes,Hypertension,Heart Failure,Stroke,Hyperlipidemia Other Pertinent Diagnosis Dementia Current Diet Nepro at 30 ml/hr Labs/Tests Na 134 K 3.9 Cr 6.5 Pertinent Medications Reviewed Height 5 ft 2 in Weight 56.1 kg [place] Body Weight (kg) 50.00 BMI 22.6 Subjective/Other Information Procedure being done in room at time of visit. Per nurse Nepro is infusing at 15 ml/hr and she plans to advance it to goal rate. Percent of energy/protein needs met: 48%/50% Burn Absent Trauma Absent #2 Nutrition Diagnosis Malnutrition Diagnosis Progress(for reassessment Continues documentation) #1 Nutrition Diagnosis Inadequate oral intake Diagnosis Progress(for reassessment Continues documentation) Is patient on ventilator? No Is Patient Ambulatory and/or Out of Bed No REE-([facility]-confined to bed) 1288.476 Kcal/Kg value to use for calculation 24 Approximate Energy Requirements Using 1346 kcal/Kg Calculation Used for Recommendations [facility] Additional Notes Protein Needs: 69-86g(1.2-1.5g /kg) Fluid Needs: 1 ml/kcal Nutrition Intervention Nutrition Support: Nepro at 30ml/hr Flush with 120ml q4h Kcal 1,296 Protein (gm) 58 Fluid (mL) 523 Goal #1 TF tolerance Goal #2 Meet at least 80% of kcal and protein needs via TF Anticipated Discharge Needs: Unable to determine at this time Follow-Up By: 11/02/18 Additional Comments Follow for TF tolerance
--- NOTE | 2018-11-02 07:48 | Hem/Onc Progress Note ---
Assessment and Plan 1. low plt - Elevated LDH. Smear has been evaluated. HIT NEGATIVE, [id number] 90% 2. Renal impairment. Nephrology team following the patient. SPEP normal 3. low plt - deficiency investigation. The smear evaluation is being done. Th e platelet counts at admission were normal and then have gone down. The cause of thrombocytopenia unclear. Her mentation is also not perfect. I will follow the trend of the counts. b12 - folate - iron ferritin normal 4. Cerebrovascular accident?. neurology following. 5. Electrolyte imbalance. 6. Vitamin D deficiency. 8. History of diabetes. 9. History of hypertension. 10. History of seizure. 11. Hyperlipidemia. neurology following - cva Stroke: - Likely cardio-embolic, as b/l infarcts seen on MRI. - MRA head/neck did not reveal any significant stenosis - Echo: EF 10-15%, bubble study negative, LA moderately dilated - EDINSON did not reveal any evidence of intracardiac thrombi. 11/02 - plt normalized hb stable [employer] high [id number] 90% - less likely TTP plt rare schistocytes HIT neg SPEP no monoclonal band LDH lower - last 400, in past this was 800s will follow pt h/o anemia on hd - Patient Problems (1) Thrombocytopenia Status: Acute Subjective Date of service: 11/02/18 Principal diagnosis: low plt Interval history: no bleeding Objective - Exam Narrative Exam: Pain Not evaluable General appearance no acute distress Performance status -completely disabled Eyes EOM not able to evaluate ENT no nose/ear bleed LNs cervical not palpable Neck Not evaluable Respiratory Normal Breath sounds - CTA anteriorly CVS S1 S2 + Extremities normal temperature/ no edema General GI Soft non tender Rectal deferred Female - deferred Skin warm Musculoskeletal moves left arm Neurologically OPENS EYES - moves left arm - Constitutional Vitals: Last Vital Signs Temp 99.1 F 11/02/18 03:50 Pulse 86 11/02/18 06:00 Resp 20 11/02/18 06:00 BP 101/64 11/02/18 06:00 Pulse Ox 98 11/02/18 07:41 - Labs Lab Results: Laboratory Results - last 24 hr 11/01/18 11/01/18 11/01/18 12:37 18:27 21:56 POC Glucose 300 H 230 H 205 H 11/01/18 11/02/18 23:39 05:22 POC Glucose 237 H 225 H Medications & Allergies - Medications Allergies/Adverse Reactions: Allergies NSAIDS (Non-Steroidal Anti-Inflamma Adverse Reaction (Verified 01/02/17 05:56) Unknown Tetracyclines Adverse Reaction (Verified 09/26/14 12:09) Unknown Home Medications: Home Medications Medication Instructions Recorded Confirmed Last Taken Type Ergocalciferol [Vitamin D2] 50,000 unit PO QWEEK capsule 09/25/16 10/17/18 Unknown Rx Latanoprost 0.005% 1 drop OP QPM 01/02/17 10/17/18 Unknown History Sodium Bicarbonate 325 mg PO DAILY 01/02/17 10/17/18 Unknown History Clopidogrel [Plavix] 75 mg PO DAILY #30 tablet 01/08/17 10/17/18 Unknown Rx Docusate Sodium [Colace CAP] 100 mg PO BID #60 capsule 01/08/17 10/17/18 Unknown Rx Famotidine [Pepcid] 10 mg PO BID #60 tablet 01/08/17 10/17/18 Unknown Rx Gabapentin [Neurontin] 300 mg PO QHS #30 capsule 01/08/17 10/17/18 Unknown Rx Simvastatin [Zocor TAB] 20 mg PO QHS #60 tablet 01/08/17 10/17/18 Unknown Rx glipiZIDE [Glucotrol] 5 mg PO QDDIAB #60 tablet 01/08/17 10/17/18 Unknown Rx hydrALAZINE [Apresoline TAB] 10 mg PO Q8HR #90 tablet 01/08/17 10/17/18 Unknown Rx levETIRAcetam [Keppra TAB] 500 mg PO BID #60 tablet 01/08/17 10/17/18 Unknown Rx Active Medications: Generic Name Dose Route Start Last Admin Trade Name Freq PRN Reason Stop Dose Admin Acetaminophen 650 mg 10/29/18 15:49 10/29/18 16:46 Tylenol FEEDTUBE 650 mg Q6H PRN Administration Pain, Mild (1-3) Lipase/Protease/Amylase 1 each 10/25/18 09:18 10/28/18 09:38 Pancreakila Bruner 10,500 Unit FEEDTUBE 1 each PRN PRN Administration For Clogged Feeding Tube Clopidogrel Bisulfate 75 mg 10/21/18 11:00 11/01/18 09:58 Plavix PO 75 mg QDAY ALLEY Administration Ergocalciferol 50,000 unit 10/24/18 10:00 08/17/19 10:31 Vitamin D2 PO 50,000 unit Sa ALLEY Administration Famotidine 20 mg 10/21/18 10:00 11/01/18 10:00 Pepcid PO 20 mg DAILY ALLEY Administration Gabapentin 300 mg 10/17/18 22:00 11/01/18 21:46 Neurontin PO 300 mg QHS ALLEY Administration Heparin Sodium (Porcine) 5,000 unit 10/29/18 11:30 11/01/18 21:49 Heparin SUB-Q 5,000 unit Q12HR ALLEY Administration Norepinephrine 8 mg/ Sodium 250 mls @ 3.75 mls/hr 10/28/18 18:00 Chloride IV TITR ALLEY Protocol 2 MCG/MIN Dobutamine HCl/Dextrose 500 mg in 250 mls @ 3.366 mls/hr 10/29/18 11:00 11/01/18 12:05 Dobutrex Drip 500mg/D5w 250ml IV 2.5 mcg/kg/min TITR ALLEY 4.208 mls/hr Titration Protocol 2 MCG/KG/MIN Phenylephrine HCl 100 mg/ 100 mls @ 6 mls/hr 10/29/18 10:30 11/02/18 05:30 Sodium Chloride IV 125 mcg/min TITR ALLEY 7.5 mls/hr Titration Protocol 100 MCG/MIN Sodium Chloride 100 mls @ 999 mls/hr 10/30/18 12:00 Nacl 0.9% IV LESLIE PRN Hypotension Insulin Glargine 5 units 10/31/18 22:00 11/01/18 21:46 Lantus SUB-Q 5 units QHS ALLEY Administration Insulin Human Lispro 0 unit 10/24/18 12:00 11/02/18 06:17 Humalog SUB-Q 3 unit Q6HR ALLEY Administration Protocol Latanoprost 1 drops 10/17/18 18:00 11/01/18 17:24 Latanoprost 0.005% OU 1 drops QPM ALLEY Administration Levetiracetam 500 mg 10/21/18 10:00 11/01/18 21:46 Keppra PO 500 mg BID ALLEY Administration Midodrine 10 mg 10/31/18 16:00 11/01/18 17:23 Proamatine PO 10 mg TID@0800,1200,1600 ALLEY Administration Simple Syrup 15 ml 10/25/18 09:18 Simple Syrup FEEDTUBE PRN PRN Hypoglycemia Simple Syrup 30 ml 10/25/18 09:18 Simple Syrup FEEDTUBE PRN PRN Hypoglycemia Sodium Bicarbonate 325 mg 10/17/18 17:00 11/01/18 09:58 Sodium Bicarbonate PO 325 mg DAILY ALLEY Administration Sodium Bicarbonate 325 mg 10/25/18 09:18 Sodium Bicarbonate FEEDTUBE PRN PRN For Clogged Feeding Tube
[2018-11-02] MEDS: PROAMATINE PO SCH ×2 (09:05→13:54)
[2018-11-02] MEDS: NEO-SYNEPHRINE 100 MG in NACL 0.9% 90 ML IV SCH ×2 (10:25→15:20)
[2018-11-02] MEDS: SODIUM BICARBONATE PO SCH (10:27)
[2018-11-02] MEDS: PLAVIX PO SCH (10:27)
[2018-11-02] MEDS: HEPARIN SUB-Q SCH (10:28)
[2018-11-02] MEDS: KEPPRA PO SCH (10:28)
[2018-11-02] MEDS: PEPCID PO SCH (10:28)
[2018-11-02] MEDS ORDERED: LANTUS SUB-Q ONE (12:00)
--- NOTE | 2018-11-02 12:16 | Progress Note ---
Assessment and Plan Post procedure hypotension, resolved Subacute CVA Acute metabolic encephalopathy ARF/CKD 4 vasomotor +ATN Hyperkalemia: Hx of cad, s/p CABG New onset systolic CHF EF 5-10% Wide complex tachycardia Thrombocytopenia - continue midodrine at 10 mg tid acutely for BP support - reduce Dobutamine to 2.5 mics/kg/min - continue neosynephrine (wean for target MAP > 65 mmHg) - continue to wean vasopressors for MAP > 65 mmHg - consider stress steroid dosing (appears cardiogenic shock element now) - optimize heart failure measures per cardiology team - continue supportive HD/UF for toxin and volume clearance - Life vest per cardiology rec's - complete antibiotics per ID, de-escalate as indicated (cefepime) - Maintain sleep- wake cycle, prevent delirium - continue wound care, off loading as tolerated - prn Analgesia per pain score - continue accucheck's with glycemic control per SSI for target blood glucose 140-180 mg/dL - continue to avoid nephrotoxins, adjust medications for CrCL and GFR - continue VTE prophylaxis with heparin; monitor for bleeding - continue Stress ulcer prophylaxis with Pepcid - aspiration precautions - PT/OT/ROM exercises as tolerated - continue mobility protocols for pressure ulcer prevention Discussed extensively with her sister and with her brother John( over the phone) with case management in attendance. Patient is going to be hospice care, in view of multi-organ dysfunction, strokes on a background of dementia. Family state that she will want more quality of life than what she currently has. Order for hospice placed. They prefer [facility] hospice Subjective Date of service: 11/02/18 Principal diagnosis: anemia Interval history: Patient is seen today for: Ac on chr encephalopathy; Hypotension- Cardiogenic Shock; ESRD on Dialysis; Acute hypoxemic respiratory failure; H/O HTN; CAD; HFrEF; Diabetes type II; GERD; H/O seizures; Protein-calorie malnutrition, moderate. Seen and examined at bedside; 24hour events reviewed; nursing and respiratory care staff consulted; no adverse overnight events reported to me; resting peacefully in bed; AMS is persistent; RN increased neosynephrine drip overnight and up to 300 mics/min for intradialytic support, remains on fixed dose dobutamine; no new issues otherwise; no gross bleeding; No N/V/F/C; mental status changes persist Objective Vital Signs - 12hr 11/02/18 11/02/18 11/02/18 00:30 00:45 01:00 Temperature Pulse Rate 88 89 89 Pulse Rate [ From Monitor] Respiratory 16 18 18 Rate Blood Pressure 91/55 84/47 91/56 O2 Sat by Pulse 100 100 100 Oximetry 11/02/18 11/02/18 11/02/18 01:15 01:30 01:45 Temperature Pulse Rate 88 89 87 Pulse Rate [ From Monitor] Respiratory 21 20 15 Rate Blood Pressure 87/54 96/53 98/57 O2 Sat by Pulse 100 100 100 Oximetry 11/02/18 11/02/18 11/02/18 02:00 02:15 02:31 Temperature Pulse Rate 85 87 90 Pulse Rate [ From Monitor] Respiratory 17 14 21 Rate Blood Pressure 92/66 91/62 89/53 O2 Sat by Pulse 100 100 100 Oximetry 11/02/18 11/02/18 11/02/18 02:45 03:00 03:15 Temperature Pulse Rate 89 86 89 Pulse Rate [ From Monitor] Respiratory 22 12 18 Rate Blood Pressure 92/63 109/66 103/73 O2 Sat by Pulse 98 100 100 Oximetry 11/02/18 11/02/18 11/02/18 03:30 03:45 03:50 Temperature 99.1 F Pulse Rate 89 89 Pulse Rate [ From Monitor] Respiratory 20 21 Rate Blood Pressure 104/71 111/67 O2 Sat by Pulse 100 100 Oximetry 11/02/18 11/02/18 11/02/18 04:00 04:15 04:30 Temperature Pulse Rate 89 88 88 Pulse Rate [ 87 From Monitor] Respiratory 19 19 Rate Blood Pressure 103/66 111/69 108/63 O2 Sat by Pulse 100 99 100 Oximetry 11/02/18 11/02/18 11/02/18 04:45 05:00 05:15 Temperature Pulse Rate 89 89 90 Pulse Rate [ From Monitor] Respiratory 22 21 23 Rate Blood Pressure 111/66 119/66 116/66 O2 Sat by Pulse 99 99 99 Oximetry 11/02/18 11/02/18 11/02/18 05:30 05:45 06:00 Temperature Pulse Rate 88 89 86 Pulse Rate [ From Monitor] Respiratory 20 20 20 Rate Blood Pressure 102/74 105/67 101/64 O2 Sat by Pulse 99 99 100 Oximetry 11/02/18 11/02/18 11/02/18 07:41 09:45 10:00 Temperature 99.1 F Pulse Rate 88 90 Pulse Rate [ From Monitor] Respiratory 20 Rate Blood Pressure 98/47 94/53 O2 Sat by Pulse 98 Oximetry 11/02/18 11/02/18 11/02/18 10:15 10:30 10:45 Temperature Pulse Rate 89 90 90 Pulse Rate [ From Monitor] Respiratory Rate Blood Pressure 99/52 104/48 101/55 O2 Sat by Pulse Oximetry 11/02/18 11/02/18 11/02/18 11:00 11:15 11:30 Temperature Pulse Rate 91 H 91 H 91 H Pulse Rate [ From Monitor] Respiratory Rate Blood Pressure 92/56 103/46 103/46 O2 Sat by Pulse Oximetry 11/02/18 11:45 Temperature Pulse Rate 92 H Pulse Rate [ From Monitor] Respiratory Rate Blood Pressure 111/61 O2 Sat by Pulse Oximetry Constitutional: no acute distress, asleep, other (elderly looking AAF, normocephalic and atraumatic resting peacefully in bed, not obeying commands) Eyes: non-icteric ENT: oropharynx moist, other ([place] 2) Neck: supple, no lymphadenopathy, no JVD, other (no thyromegaly) Effort: mildly labored Ascultation: Bilateral: clear, diminished breath sounds, rales (bases) Percussion: Bilateral: dull (bases) Cardiovascular: regular rate and rhythm, other (+ Systolic murmur) Gastrointestinal: normoactive bowel sounds, soft, non-tender, non-distended Integumentary: normal Extremities: no cyanosis, no edema, pulses normal, no ischemia or petechiae Neurologic: unable to assess, other (encephalopathic) Psychiatric: other (unable to assess re: AMS) CBC and BMP: 11/01/18 04:52 11/01/18 04:52 ABG, PT/INR, D-dimer: ABG POC ABG pH 7.436 (7.35-7.45) 10/23/18 20:51 POC ABG pCO2 34.3 (35-45) L 10/23/18 20:51 POC ABG pO2 95 (80-105) 10/23/18 20:51 POC ABG HCO3 23.1 (22-26 mml/L) 10/23/18 20:51 POC ABG Total CO2 24 (23-27mmol/L) 10/23/18 20:51 POC ABG O2 Sat 98 10/23/18 20:51 PT/INR, D-dimer PT 20.6 Sec. (12.2-14.9) H 10/17/18 10:19 INR 1.81 (0.87-1.13) H 10/17/18 10:19 Abnormal lab findings: Abnormal Labs 10/17/18 10/17/18 10/17/18 10:16 10:19 10:19 WBC RBC Hgb Hct MCV RDW Plt Count Lymph % (Auto) 9.5 L [place] % (Auto) Lymph # 1.0 L [place] # Seg Neutrophils % 84.7 H Seg Neuts % (Manual) Lymphocytes % (Manual) Monocytes % (Manual) Nucleated RBC % Seg Neutrophils # 8.7 H Seg Neutrophils # Man Lymphocytes # (Manual) PT 20.6 H INR 1.81 H POC ABG pH POC ABG pCO2 POC ABG pO2 Sodium Potassium Chloride Carbon Dioxide BUN Creatinine Glucose POC Glucose 277 H Calcium Phosphorus TIBC Ferritin AST ALT Alkaline Phosphatase Lactate Dehydrogenase Total Creatine Kinase Troponin T C-Reactive Protein Serum Total Protein Total Protein Albumin [place]-7-Ciixnlecb PEP Interpretation HDL Cholesterol Vitamin B12 Urine Creatinine Ur Creatinine 24 Hour Urine Total Protein Salicylates Acetaminophen 10/17/18 10/17/18 10/17/18 13:14 13:16 13:34 WBC RBC Hgb Hct MCV RDW Plt Count Lymph % (Auto) [place] % (Auto) Lymph # [place] # Seg Neutrophils % Seg Neuts % (Manual) Lymphocytes % (Manual) Monocytes % (Manual) Nucleated RBC % Seg Neutrophils # Seg Neutrophils # Man Lymphocytes # (Manual) PT INR POC ABG pH POC ABG pCO2 POC ABG pO2 Sodium Potassium Chloride Carbon Dioxide BUN Creatinine Glucose POC Glucose 330 H Calcium Phosphorus TIBC Ferritin AST ALT Alkaline Phosphatase Lactate Dehydrogenase Total Creatine Kinase Troponin T C-Reactive Protein Serum Total Protein Total Protein Albumin Gcadr-7-Nvbuknkzi PEP Interpretation HDL Cholesterol Vitamin B12 Urine Creatinine 276.0 H 271.1 H Ur Creatinine 24 Hour Urine Total Protein 191 H Salicylates Acetaminophen 10/17/18 10/17/18 10/17/18 15:15 21:03 Unknown WBC RBC Hgb Hct MCV RDW Plt Count Lymph % (Auto) [place] % (Auto) Lymph # [place] # Seg Neutrophils % Seg Neuts % (Manual) Lymphocytes % (Manual) Monocytes % (Manual) Nucleated RBC % Seg Neutrophils # Seg Neutrophils # Man Lymphocytes # (Manual) PT INR POC ABG pH POC ABG pCO2 POC ABG pO2 Sodium Potassium 6.6 H* Chloride Carbon Dioxide 10 L BUN 111 H Creatinine 6.5 H Glucose 351 H POC Glucose 143 H Calcium Phosphorus TIBC Ferritin AST ALT Alkaline Phosphatase Lactate Dehydrogenase Total Creatine Kinase 3216 H Troponin T 4.720 H* C-Reactive Protein Serum Total Protein Total Protein Albumin Xacvl-2-Kjecacgbw PEP Interpretation HDL Cholesterol 88 H Vitamin B12 Urine Creatinine Ur Creatinine 24 Hour Urine Total Protein Salicylates Acetaminophen 10/17/18 10/17/18 10/18/18 Unknown Unknown 07:29 WBC RBC Hgb Hct MCV RDW Plt Count Lymph % (Auto) [place] % (Auto) Lymph # [place] # Seg Neutrophils % Seg Neuts % (Manual) Lymphocytes % (Manual) Monocytes % (Manual) Nucleated RBC % Seg Neutrophils # Seg Neutrophils # Man Lymphocytes # (Manual) PT INR POC ABG pH POC ABG pCO2 POC ABG pO2 Sodium Potassium Chloride Carbon Dioxide BUN Creatinine Glucose POC Glucose 120 H Calcium Phosphorus TIBC Ferritin AST ALT Alkaline Phosphatase Lactate Dehydrogenase Total Creatine Kinase Troponin T C-Reactive Protein Serum Total Protein Total Protein Albumin Itjkm-6-Ctxdfidrl PEP Interpretation HDL Cholesterol Vitamin B12 Urine Creatinine Ur Creatinine 24 Hour Urine Total Protein Salicylates < 0.3 L Acetaminophen < 5.0 L 10/18/18 10/18/18 10/18/18 09:09 09:09 12:21 WBC RBC 3.28 L Hgb Hct MCV RDW Plt Count 125 L Lymph % (Auto) 13.2 L [place] % (Auto) Lymph # 1.1 L [place] # Seg Neutrophils % 80.7 H Seg Neuts % (Manual) Lymphocytes % (Manual) Monocytes % (Manual) Nucleated RBC % Seg Neutrophils # Seg Neutrophils # Man Lymphocytes # (Manual) PT INR POC ABG pH POC ABG pCO2 POC ABG pO2 Sodium Potassium Chloride 97.9 L Carbon Dioxide 20 L D BUN 38 H Creatinine 3.2 H D Glucose 207 H POC Glucose 180 H Calcium Phosphorus TIBC Ferritin AST ALT Alkaline Phosphatase Lactate Dehydrogenase Total Creatine Kinase Troponin T C-Reactive Protein Serum Total Protein Total Protein Albumin Oazmy-8-Mmvyvceiu PEP Interpretation HDL Cholesterol Vitamin B12 Urine Creatinine Ur Creatinine 24 Hour Urine Total Protein Salicylates Acetaminophen 10/18/18 10/18/18 10/19/18 17:14 20:50 05:20 WBC RBC 3.46 L Hgb Hct MCV 98 H RDW 16.4 H Plt Count 55 L Lymph % (Auto) [place] % (Auto) Lymph # [place] # Seg Neutrophils % Seg Neuts % (Manual) Lymphocytes % (Manual) Monocytes % (Manual) 9.0 H Nucleated RBC % 4.0 H Seg Neutrophils # Seg Neutrophils # Man Lymphocytes # (Manual) PT INR POC ABG pH POC ABG pCO2 POC ABG pO2 Sodium Potassium Chloride Carbon Dioxide BUN Creatinine Glucose POC Glucose 256 H 335 H Calcium Phosphorus TIBC Ferritin AST ALT Alkaline Phosphatase Lactate Dehydrogenase Total Creatine Kinase Troponin T C-Reactive Protein Serum Total Protein Total Protein Albumin Fnxbl-4-Xvwakviva PEP Interpretation HDL Cholesterol Vitamin B12 Urine Creatinine Ur Creatinine 24 Hour Urine Total Protein Salicylates Acetaminophen 10/19/18 10/19/18 10/19/18 05:20 08:34 08:34 WBC RBC Hgb Hct MCV RDW Plt Count Lymph % (Auto) [place] % (Auto) Lymph # [place] # Seg Neutrophils % Seg Neuts % (Manual) Lymphocytes % (Manual) Monocytes % (Manual) Nucleated RBC % Seg Neutrophils # Seg Neutrophils # Man Lymphocytes # (Manual) PT INR POC ABG pH POC ABG pCO2 POC ABG pO2 Sodium Potassium Chloride Carbon Dioxide 21 L BUN 52 H Creatinine 4.2 H Glucose 106 H POC Glucose Calcium Phosphorus TIBC 193 L Ferritin 2450.0 H AST ALT Alkaline Phosphatase Lactate Dehydrogenase 892 H Total Creatine Kinase Troponin T C-Reactive Protein Serum Total Protein Total Protein Albumin Mnngs-9-Iumoujvqo PEP Interpretation HDL Cholesterol Vitamin B12 Urine Creatinine Ur Creatinine 24 Hour Urine Total Protein Salicylates Acetaminophen 10/19/18 10/19/18 10/19/18 08:34 09:06 13:41 WBC RBC Hgb Hct MCV RDW Plt Count Lymph % (Auto) [place] % (Auto) Lymph # [place] # Seg Neutrophils % Seg Neuts % (Manual) Lymphocytes % (Manual) Monocytes % (Manual) Nucleated RBC % Seg Neutrophils # Seg Neutrophils # Man Lymphocytes # (Manual) PT INR POC ABG pH POC ABG pCO2 POC ABG pO2 Sodium Potassium Chloride Carbon Dioxide BUN Creatinine Glucose POC Glucose 141 H 156 H Calcium Phosphorus TIBC Ferritin AST ALT Alkaline Phosphatase Lactate Dehydrogenase Total Creatine Kinase Troponin T C-Reactive Protein Serum Total Protein Total Protein Albumin Hozlm-6-Cmaosydar PEP Interpretation HDL Cholesterol Vitamin B12 1296 H Urine Creatinine Ur Creatinine 24 Hour Urine Total Protein Salicylates Acetaminophen 10/19/18 10/19/18 10/20/18 15:53 22:51 05:07 WBC RBC 3.23 L Hgb 10.0 L Hct MCV RDW 15.7 H Plt Count 111 L D Lymph % (Auto) [place] % (Auto) 8.0 H Lymph # [place] # Seg Neutrophils % Seg Neuts % (Manual) Lymphocytes % (Manual) Monocytes % (Manual) Nucleated RBC % Seg Neutrophils # Seg Neutrophils # Man Lymphocytes # (Manual) PT INR POC ABG pH POC ABG pCO2 POC ABG pO2 Sodium Potassium Chloride Carbon Dioxide BUN Creatinine Glucose POC Glucose 193 H 228 H Calcium Phosphorus TIBC Ferritin AST ALT Alkaline Phosphatase Lactate Dehydrogenase Total Creatine Kinase Troponin T C-Reactive Protein Serum Total Protein Total Protein Albumin [place]-8-Tcjhxmkce PEP Interpretation HDL Cholesterol Vitamin B12 Urine Creatinine Ur Creatinine 24 Hour Urine Total Protein Salicylates Acetaminophen 10/20/18 10/20/18 10/20/18 05:07 05:07 10:44 WBC RBC Hgb Hct MCV RDW Plt Count Lymph % (Auto) [place] % (Auto) Lymph # [place] # Seg Neutrophils % Seg Neuts % (Manual) Lymphocytes % (Manual) Monocytes % (Manual) Nucleated RBC % Seg Neutrophils # Seg Neutrophils # Man Lymphocytes # (Manual) PT INR POC ABG pH POC ABG pCO2 POC ABG pO2 Sodium Potassium Chloride Carbon Dioxide BUN 32 H Creatinine 3.2 H Glucose 177 H POC Glucose 160 H Calcium 8.0 L Phosphorus TIBC Ferritin AST 305 H ALT 728 H Alkaline Phosphatase 402 H Lactate Dehydrogenase Total Creatine Kinase Troponin T C-Reactive Protein Serum Total Protein 5.5 L Total Protein 6.0 L Albumin 2.9 L 2.7 L Ltkef-8-Rnupjsacb 0.4 H PEP Interpretation see below H HDL Cholesterol Vitamin B12 Urine Creatinine Ur Creatinine 24 Hour Urine Total Protein Salicylates Acetaminophen 10/20/18 10/20/18 10/20/18 13:45 17:19 20:44 WBC RBC Hgb Hct MCV RDW Plt Count Lymph % (Auto) [place] % (Auto) Lymph # [place] # Seg Neutrophils % Seg Neuts % (Manual) Lymphocytes % (Manual) Monocytes % (Manual) Nucleated RBC % Seg Neutrophils # Seg Neutrophils # Man Lymphocytes # (Manual) PT INR POC ABG pH POC ABG pCO2 POC ABG pO2 Sodium Potassium Chloride Carbon Dioxide BUN Creatinine Glucose POC Glucose 143 H 234 H Calcium Phosphorus TIBC Ferritin AST ALT Alkaline Phosphatase Lactate Dehydrogenase Total Creatine Kinase Troponin T C-Reactive Protein Serum Total Protein Total Protein Albumin Ioodh-9-Omyhxdpei PEP Interpretation HDL Cholesterol Vitamin B12 Urine Creatinine 157.6 H Ur Creatinine 24 Hour Urine Total Protein Salicylates Acetaminophen 10/21/18 10/21/18 10/21/18 05:57 05:57 07:55 WBC RBC 3.16 L Hgb 10.0 L Hct 29.9 L MCV RDW 15.4 H Plt Count 125 L Lymph % (Auto) [place] % (Auto) 9.6 H Lymph # [place] # Seg Neutrophils % 71.3 H Seg Neuts % (Manual) Lymphocytes % (Manual) Monocytes % (Manual) Nucleated RBC % Seg Neutrophils # Seg Neutrophils # Man Lymphocytes # (Manual) PT INR POC ABG pH POC ABG pCO2 POC ABG pO2 Sodium Potassium Chloride Carbon Dioxide BUN 47 H Creatinine 4.9 H D Glucose 229 H POC Glucose 239 H Calcium 8.0 L Phosphorus TIBC Ferritin AST ALT Alkaline Phosphatase Lactate Dehydrogenase Total Creatine Kinase Troponin T C-Reactive Protein Serum Total Protein Total Protein Albumin Nilxh-9-Cmbggzukw PEP Interpretation HDL Cholesterol Vitamin B12 Urine Creatinine Ur Creatinine 24 Hour Urine Total Protein Salicylates Acetaminophen 10/21/18 10/21/18 10/21/18 12:05 15:40 18:19 WBC RBC Hgb Hct MCV RDW Plt Count Lymph % (Auto) [place] % (Auto) Lymph # [place] # Seg Neutrophils % Seg Neuts % (Manual) Lymphocytes % (Manual) Monocytes % (Manual) Nucleated RBC % Seg Neutrophils # Seg Neutrophils # Man Lymphocytes # (Manual) PT INR POC ABG pH POC ABG pCO2 POC ABG pO2 Sodium Potassium Chloride Carbon Dioxide BUN Creatinine Glucose POC Glucose 446 H 263 H Calcium Phosphorus TIBC Ferritin AST ALT Alkaline Phosphatase Lactate Dehydrogenase Total Creatine Kinase Troponin T C-Reactive Protein Serum Total Protein Total Protein Albumin [place]-3-Fdxrbkddu PEP Interpretation HDL Cholesterol Vitamin B12 Urine Creatinine 196.7 H Ur Creatinine 24 Hour 0.1 L Urine Total Protein Salicylates Acetaminophen 10/22/18 10/22/18 10/22/18 00:45 06:24 06:24 WBC RBC 3.17 L Hgb 9.9 L Hct MCV RDW 15.7 H Plt Count 134 L Lymph % (Auto) [place] % (Auto) Lymph # [place] # Seg Neutrophils % Seg Neuts % (Manual) 78.0 H Lymphocytes % (Manual) Monocytes % (Manual) Nucleated RBC % Seg Neutrophils # Seg Neutrophils # Man 8.3 H Lymphocytes # (Manual) PT INR POC ABG pH POC ABG pCO2 POC ABG pO2 Sodium Potassium Chloride Carbon Dioxide BUN 33 H Creatinine 3.9 H Glucose 171 H POC Glucose 179 H Calcium Phosphorus TIBC Ferritin AST ALT Alkaline Phosphatase Lactate Dehydrogenase Total Creatine Kinase Troponin T C-Reactive Protein Serum Total Protein Total Protein Albumin Ywquv-6-Uhqrqxdoh PEP Interpretation HDL Cholesterol Vitamin B12 Urine Creatinine Ur Creatinine 24 Hour Urine Total Protein Salicylates Acetaminophen 10/22/18 10/22/18 10/22/18 12:47 18:33 21:58 WBC RBC Hgb Hct MCV RDW Plt Count Lymph % (Auto) [place] % (Auto) Lymph # [place] # Seg Neutrophils % Seg Neuts % (Manual) Lymphocytes % (Manual) Monocytes % (Manual) Nucleated RBC % Seg Neutrophils # Seg Neutrophils # Man Lymphocytes # (Manual) PT INR POC ABG pH POC ABG pCO2 POC ABG pO2 Sodium Potassium Chloride Carbon Dioxide BUN Creatinine Glucose POC Glucose 210 H 176 H 230 H Calcium Phosphorus TIBC Ferritin AST ALT Alkaline Phosphatase Lactate Dehydrogenase Total Creatine Kinase Troponin T C-Reactive Protein Serum Total Protein Total Protein Albumin Mtpez-5-Jaicyesey PEP Interpretation HDL Cholesterol Vitamin B12 Urine Creatinine Ur Creatinine 24 Hour Urine Total Protein Salicylates Acetaminophen 10/23/18 10/23/18 10/23/18 05:24 05:24 07:31 WBC RBC 3.49 L Hgb Hct MCV RDW 16.7 H Plt Count Lymph % (Auto) [place] % (Auto) Lymph # [place] # Seg Neutrophils % Seg Neuts % (Manual) 88.0 H Lymphocytes % (Manual) 6.0 L Monocytes % (Manual) Nucleated RBC % Seg Neutrophils # Seg Neutrophils # Man 9.3 H Lymphocytes # (Manual) 0.6 L PT INR POC ABG pH POC ABG pCO2 POC ABG pO2 Sodium Potassium Chloride Carbon Dioxide BUN 49 H Creatinine 5.0 H Glucose 211 H POC Glucose 137 H Calcium Phosphorus 5.30 H D TIBC Ferritin AST ALT Alkaline Phosphatase Lactate Dehydrogenase Total Creatine Kinase Troponin T C-Reactive Protein Serum Total Protein Total Protein Albumin Ovqjo-2-Pjpsoxmca PEP Interpretation HDL Cholesterol Vitamin B12 Urine Creatinine Ur Creatinine 24 Hour Urine Total Protein Salicylates Acetaminophen 10/23/18 10/23/18 10/23/18 11:50 11:51 14:59 WBC RBC Hgb Hct MCV RDW Plt Count Lymph % (Auto) [place] % (Auto) Lymph # [place] # Seg Neutrophils % Seg Neuts % (Manual) Lymphocytes % (Manual) Monocytes % (Manual) Nucleated RBC % Seg Neutrophils # Seg Neutrophils # Man Lymphocytes # (Manual) PT INR POC ABG pH 7.346 L POC ABG pCO2 POC ABG pO2 116 H Sodium Potassium Chloride Carbon Dioxide BUN Creatinine Glucose POC Glucose 232 H Calcium Phosphorus TIBC Ferritin AST ALT Alkaline Phosphatase Lactate Dehydrogenase Total Creatine Kinase Troponin T C-Reactive Protein 24.10 H Serum Total Protein Total Protein Albumin Pbqgf-3-Iannxwlga PEP Interpretation HDL Cholesterol Vitamin B12 Urine Creatinine Ur Creatinine 24 Hour Urine Total Protein Salicylates Acetaminophen 10/23/18 10/23/18 10/23/18 18:29 20:51 23:37 WBC RBC Hgb Hct MCV RDW Plt Count Lymph % (Auto) [place] % (Auto) Lymph # [place] # Seg Neutrophils % Seg Neuts % (Manual) Lymphocytes % (Manual) Monocytes % (Manual) Nucleated RBC % Seg Neutrophils # Seg Neutrophils # Man Lymphocytes # (Manual) PT INR POC ABG pH POC ABG pCO2 34.3 L POC ABG pO2 Sodium Potassium Chloride Carbon Dioxide BUN Creatinine Glucose POC Glucose 182 H 232 H Calcium Phosphorus TIBC Ferritin AST ALT Alkaline Phosphatase Lactate Dehydrogenase Total Creatine Kinase Troponin T C-Reactive Protein Serum Total Protein Total Protein Albumin Xpxjb-7-Obdvpgioq PEP Interpretation HDL Cholesterol Vitamin B12 Urine Creatinine Ur Creatinine 24 Hour Urine Total Protein Salicylates Acetaminophen 10/24/18 10/24/18 10/24/18 04:50 04:50 07:44 WBC RBC 3.13 L Hgb 9.7 L Hct MCV RDW 16.8 H Plt Count 132 L Lymph % (Auto) [place] % (Auto) Lymph # [place] # Seg Neutrophils % Seg Neuts % (Manual) 79.0 H Lymphocytes % (Manual) 11.0 L Monocytes % (Manual) Nucleated RBC % Seg Neutrophils # Seg Neutrophils # Man 8.7 H Lymphocytes # (Manual) PT INR POC ABG pH POC ABG pCO2 POC ABG pO2 Sodium 136 L Potassium Chloride 94.6 L Carbon Dioxide BUN 25 H Creatinine 3.3 H Glucose 214 H POC Glucose 219 H Calcium Phosphorus TIBC Ferritin AST ALT Alkaline Phosphatase Lactate Dehydrogenase Total Creatine Kinase Troponin T C-Reactive Protein Serum Total Protein Total Protein Albumin Gbwbc-6-Xczdpofdb PEP Interpretation HDL Cholesterol Vitamin B12 Urine Creatinine Ur Creatinine 24 Hour Urine Total Protein Salicylates Acetaminophen 10/24/18 10/24/18 10/24/18 11:52 18:25 21:12 WBC RBC Hgb Hct MCV RDW Plt Count Lymph % (Auto) [place] % (Auto) Lymph # [place] # Seg Neutrophils % Seg Neuts % (Manual) Lymphocytes % (Manual) Monocytes % (Manual) Nucleated RBC % Seg Neutrophils # Seg Neutrophils # Man Lymphocytes # (Manual) PT INR POC ABG pH POC ABG pCO2 POC ABG pO2 Sodium Potassium Chloride Carbon Dioxide BUN Creatinine Glucose POC Glucose 290 H 113 H 123 H Calcium Phosphorus TIBC Ferritin AST ALT Alkaline Phosphatase Lactate Dehydrogenase Total Creatine Kinase Troponin T C-Reactive Protein Serum Total Protein Total Protein Albumin Xdgkb-5-Hymbfucru PEP Interpretation HDL Cholesterol Vitamin B12 Urine Creatinine Ur Creatinine 24 Hour Urine Total Protein Salicylates Acetaminophen 10/25/18 10/25/18 10/25/18 06:29 11:31 12:28 WBC RBC Hgb Hct MCV RDW Plt Count Lymph % (Auto) [place] % (Auto) Lymph # [place] # Seg Neutrophils % Seg Neuts % (Manual) Lymphocytes % (Manual) Monocytes % (Manual) Nucleated RBC % Seg Neutrophils # Seg Neutrophils # Man Lymphocytes # (Manual) PT INR POC ABG pH POC ABG pCO2 POC ABG pO2 Sodium Potassium Chloride 94.1 L Carbon Dioxide BUN 42 H Creatinine 4.8 H Glucose 192 H POC Glucose 208 H 225 H Calcium Phosphorus TIBC Ferritin AST ALT Alkaline Phosphatase Lactate Dehydrogenase Total Creatine Kinase Troponin T C-Reactive Protein Serum Total Protein Total Protein Albumin Lngcr-6-Tbxzatekp PEP Interpretation HDL Cholesterol Vitamin B12 Urine Creatinine Ur Creatinine 24 Hour Urine Total Protein Salicylates Acetaminophen 10/25/18 10/25/18 10/26/18 16:16 23:38 05:49 WBC RBC Hgb Hct MCV RDW Plt Count Lymph % (Auto) [place] % (Auto) Lymph # [place] # Seg Neutrophils % Seg Neuts % (Manual) Lymphocytes % (Manual) Monocytes % (Manual) Nucleated RBC % Seg Neutrophils # Seg Neutrophils # Man Lymphocytes # (Manual) PT INR POC ABG pH POC ABG pCO2 POC ABG pO2 Sodium Potassium Chloride Carbon Dioxide BUN Creatinine Glucose POC Glucose 228 H 312 H 246 H Calcium Phosphorus TIBC Ferritin AST ALT Alkaline Phosphatase Lactate Dehydrogenase Total Creatine Kinase Troponin T C-Reactive Protein Serum Total Protein Total Protein Albumin Nevbl-7-Ijhmcyzbp PEP Interpretation HDL Cholesterol Vitamin B12 Urine Creatinine Ur Creatinine 24 Hour Urine Total Protein Salicylates Acetaminophen 10/26/18 10/26/18 10/26/18 06:13 06:13 09:17 WBC 12.3 H RBC 3.35 L Hgb Hct MCV RDW 16.4 H Plt Count Lymph % (Auto) 8.4 L [place] % (Auto) 10.7 H Lymph # 1.0 L [place] # 1.3 H Seg Neutrophils % 80.4 H Seg Neuts % (Manual) Lymphocytes % (Manual) Monocytes % (Manual) Nucleated RBC % Seg Neutrophils # 9.9 H Seg Neutrophils # Man Lymphocytes # (Manual) PT INR POC ABG pH POC ABG pCO2 POC ABG pO2 Sodium 136 L Potassium Chloride 91.7 L Carbon Dioxide BUN 54 H Creatinine 6.0 H Glucose 247 H POC Glucose 252 H Calcium Phosphorus TIBC Ferritin AST ALT Alkaline Phosphatase 251 H Lactate Dehydrogenase 458 H Total Creatine Kinase Troponin T C-Reactive Protein Serum Total Protein Total Protein 5.9 L Albumin 3.0 L Bzfua-9-Skinlzocz PEP Interpretation HDL Cholesterol Vitamin B12 Urine Creatinine Ur Creatinine 24 Hour Urine Total Protein Salicylates Acetaminophen 10/26/18 10/27/18 10/27/18 15:31 00:37 06:20 WBC RBC Hgb Hct MCV RDW Plt Count Lymph % (Auto) [place] % (Auto) Lymph # [place] # Seg Neutrophils % Seg Neuts % (Manual) Lymphocytes % (Manual) Monocytes % (Manual) Nucleated RBC % Seg Neutrophils # Seg Neutrophils # Man Lymphocytes # (Manual) PT INR POC ABG pH POC ABG pCO2 POC ABG pO2 Sodium Potassium Chloride Carbon Dioxide BUN Creatinine Glucose POC Glucose 265 H 308 H 368 H Calcium Phosphorus TIBC Ferritin AST ALT Alkaline Phosphatase Lactate Dehydrogenase Total Creatine Kinase Troponin T C-Reactive Protein Serum Total Protein Total Protein Albumin Vduke-2-Pksgyudaa PEP Interpretation HDL Cholesterol Vitamin B12 Urine Creatinine Ur Creatinine 24 Hour Urine Total Protein Salicylates Acetaminophen 10/27/18 10/27/18 10/27/18 11:19 16:40 22:48 WBC RBC Hgb Hct MCV RDW Plt Count Lymph % (Auto) [place] % (Auto) Lymph # [place] # Seg Neutrophils % Seg Neuts % (Manual) Lymphocytes % (Manual) Monocytes % (Manual) Nucleated RBC % Seg Neutrophils # Seg Neutrophils # Man Lymphocytes # (Manual) PT INR POC ABG pH POC ABG pCO2 POC ABG pO2 Sodium Potassium Chloride Carbon Dioxide BUN Creatinine Glucose POC Glucose 331 H 348 H 345 H Calcium Phosphorus TIBC Ferritin AST ALT Alkaline Phosphatase Lactate Dehydrogenase Total Creatine Kinase Troponin T C-Reactive Protein Serum Total Protein Total Protein Albumin Ejpuy-2-Zkdkguykx PEP Interpretation HDL Cholesterol Vitamin B12 Urine Creatinine Ur Creatinine 24 Hour Urine Total Protein Salicylates Acetaminophen 10/28/18 10/28/18 10/28/18 05:52 05:58 05:58 WBC 12.5 H RBC 2.82 L Hgb 8.7 L Hct 26.7 L MCV RDW 16.2 H Plt Count Lymph % (Auto) [place] % (Auto) Lymph # [place] # Seg Neutrophils % Seg Neuts % (Manual) Lymphocytes % (Manual) Monocytes % (Manual) Nucleated RBC % Seg Neutrophils # Seg Neutrophils # Man Lymphocytes # (Manual) PT INR POC ABG pH POC ABG pCO2 POC ABG pO2 Sodium Potassium Chloride 93.7 L Carbon Dioxide BUN 55 H Creatinine 5.3 H Glucose 286 H POC Glucose 280 H Calcium 8.3 L Phosphorus TIBC Ferritin AST ALT Alkaline Phosphatase Lactate Dehydrogenase Total Creatine Kinase Troponin T C-Reactive Protein Serum Total Protein Total Protein Albumin Hfelv-2-Pwwfbxpvh PEP Interpretation HDL Cholesterol Vitamin B12 Urine Creatinine Ur Creatinine 24 Hour Urine Total Protein Salicylates Acetaminophen 10/28/18 10/29/18 10/29/18 18:09 00:56 12:56 WBC 12.5 H RBC 2.82 L Hgb 8.6 L Hct 26.5 L MCV RDW 16.2 H Plt Count Lymph % (Auto) 7.1 L [place] % (Auto) 9.7 H Lymph # 0.9 L [place] # 1.2 H Seg Neutrophils % 81.8 H Seg Neuts % (Manual) Lymphocytes % (Manual) Monocytes % (Manual) Nucleated RBC % Seg Neutrophils # 10.2 H Seg Neutrophils # Man Lymphocytes # (Manual) PT INR POC ABG pH POC ABG pCO2 POC ABG pO2 Sodium Potassium Chloride Carbon Dioxide BUN Creatinine Glucose POC Glucose 289 H 172 H Calcium Phosphorus TIBC Ferritin AST ALT Alkaline Phosphatase Lactate Dehydrogenase Total Creatine Kinase Troponin T C-Reactive Protein Serum Total Protein Total Protein Albumin Kkfea-3-Qtdyehnjg PEP Interpretation HDL Cholesterol Vitamin B12 Urine Creatinine Ur Creatinine 24 Hour Urine Total Protein Salicylates Acetaminophen 10/29/18 10/29/18 10/30/18 13:25 17:58 00:18 WBC RBC Hgb Hct MCV RDW Plt Count Lymph % (Auto) [place] % (Auto) Lymph # [place] # Seg Neutrophils % Seg Neuts % (Manual) Lymphocytes % (Manual) Monocytes % (Manual) Nucleated RBC % Seg Neutrophils # Seg Neutrophils # Man Lymphocytes # (Manual) PT INR POC ABG pH POC ABG pCO2 POC ABG pO2 Sodium 134 L Potassium Chloride 90.8 L Carbon Dioxide BUN 75 H Creatinine 6.5 H Glucose 251 H POC Glucose 227 H 279 H Calcium Phosphorus TIBC Ferritin AST ALT Alkaline Phosphatase Lactate Dehydrogenase Total Creatine Kinase Troponin T C-Reactive Protein Serum Total Protein Total Protein Albumin Gaood-3-Ljnlaovmh PEP Interpretation HDL Cholesterol Vitamin B12 Urine Creatinine Ur Creatinine 24 Hour Urine Total Protein Salicylates Acetaminophen 10/30/18 10/30/18 10/30/18 05:30 13:01 18:08 WBC RBC Hgb Hct MCV RDW Plt Count Lymph % (Auto) [place] % (Auto) Lymph # [place] # Seg Neutrophils % Seg Neuts % (Manual) Lymphocytes % (Manual) Monocytes % (Manual) Nucleated RBC % Seg Neutrophils # Seg Neutrophils # Man Lymphocytes # (Manual) PT INR POC ABG pH POC ABG pCO2 POC ABG pO2 Sodium Potassium Chloride Carbon Dioxide BUN Creatinine Glucose POC Glucose 230 H 315 H 232 H Calcium Phosphorus TIBC Ferritin AST ALT Alkaline Phosphatase Lactate Dehydrogenase Total Creatine Kinase Troponin T C-Reactive Protein Serum Total Protein Total Protein Albumin Zdhpi-6-Dwhbdhzqm PEP Interpretation HDL Cholesterol Vitamin B12 Urine Creatinine Ur Creatinine 24 Hour Urine Total Protein Salicylates Acetaminophen 10/30/18 10/31/18 10/31/18 23:31 05:26 12:09 WBC RBC Hgb Hct MCV RDW Plt Count Lymph % (Auto) [place] % (Auto) Lymph # [place] # Seg Neutrophils % Seg Neuts % (Manual) Lymphocytes % (Manual) Monocytes % (Manual) Nucleated RBC % Seg Neutrophils # Seg Neutrophils # Man Lymphocytes # (Manual) PT INR POC ABG pH POC ABG pCO2 POC ABG pO2 Sodium Potassium Chloride Carbon Dioxide BUN Creatinine Glucose POC Glucose 247 H 174 H 263 H Calcium Phosphorus TIBC Ferritin AST ALT Alkaline Phosphatase Lactate Dehydrogenase Total Creatine Kinase Troponin T C-Reactive Protein Serum Total Protein Total Protein Albumin Labtr-7-Yaigokzym PEP Interpretation HDL Cholesterol Vitamin B12 Urine Creatinine Ur Creatinine 24 Hour Urine Total Protein Salicylates Acetaminophen 10/31/18 10/31/18 10/31/18 18:26 21:33 23:43 WBC RBC Hgb Hct MCV RDW Plt Count Lymph % (Auto) [place] % (Auto) Lymph # [place] # Seg Neutrophils % Seg Neuts % (Manual) Lymphocytes % (Manual) Monocytes % (Manual) Nucleated RBC % Seg Neutrophils # Seg Neutrophils # Man Lymphocytes # (Manual) PT INR POC ABG pH POC ABG pCO2 POC ABG pO2 Sodium Potassium Chloride Carbon Dioxide BUN Creatinine Glucose POC Glucose 314 H 268 H 264 H Calcium Phosphorus TIBC Ferritin AST ALT Alkaline Phosphatase Lactate Dehydrogenase Total Creatine Kinase Troponin T C-Reactive Protein Serum Total Protein Total Protein Albumin Jqtsr-1-Uyzhlwrai PEP Interpretation HDL Cholesterol Vitamin B12 Urine Creatinine Ur Creatinine 24 Hour Urine Total Protein Salicylates Acetaminophen 11/01/18 11/01/18 11/01/18 04:52 04:52 04:52 WBC 13.9 H RBC 2.68 L Hgb 8.2 L Hct 25.9 L MCV RDW 16.7 H Plt Count Lymph % (Auto) [place] % (Auto) Lymph # [place] # Seg Neutrophils % Seg Neuts % (Manual) Lymphocytes % (Manual) Monocytes % (Manual) Nucleated RBC % Seg Neutrophils # Seg Neutrophils # Man Lymphocytes # (Manual) PT INR POC ABG pH POC ABG pCO2 POC ABG pO2 Sodium Potassium Chloride 95.4 L Carbon Dioxide BUN 67 H Creatinine 5.3 H Glucose 240 H POC Glucose 276 H Calcium Phosphorus TIBC Ferritin AST ALT Alkaline Phosphatase Lactate Dehydrogenase Total Creatine Kinase Troponin T C-Reactive Protein Serum Total Protein Total Protein Albumin Tdjmq-8-Olxvlgegg PEP Interpretation HDL Cholesterol Vitamin B12 Urine Creatinine Ur Creatinine 24 Hour Urine Total Protein Salicylates Acetaminophen 11/01/18 11/01/18 11/01/18 12:37 18:27 21:56 WBC RBC Hgb Hct MCV RDW Plt Count Lymph % (Auto) [place] % (Auto) Lymph # [place] # Seg Neutrophils % Seg Neuts % (Manual) Lymphocytes % (Manual) Monocytes % (Manual) Nucleated RBC % Seg Neutrophils # Seg Neutrophils # Man Lymphocytes # (Manual) PT INR POC ABG pH POC ABG pCO2 POC ABG pO2 Sodium Potassium Chloride Carbon Dioxide BUN Creatinine Glucose POC Glucose 300 H 230 H 205 H Calcium Phosphorus TIBC Ferritin AST ALT Alkaline Phosphatase Lactate Dehydrogenase Total Creatine Kinase Troponin T C-Reactive Protein Serum Total Protein Total Protein Albumin Ygpru-8-Zdztuwqfg PEP Interpretation HDL Cholesterol Vitamin B12 Urine Creatinine Ur Creatinine 24 Hour Urine Total Protein Salicylates Acetaminophen 11/01/18 11/02/18 11/02/18 23:39 05:22 11:48 WBC RBC Hgb Hct MCV RDW Plt Count Lymph % (Auto) [place] % (Auto) Lymph # [place] # Seg Neutrophils % Seg Neuts % (Manual) Lymphocytes % (Manual) Monocytes % (Manual) Nucleated RBC % Seg Neutrophils # Seg Neutrophils # Man Lymphocytes # (Manual) PT INR POC ABG pH POC ABG pCO2 POC ABG pO2 Sodium Potassium Chloride Carbon Dioxide BUN Creatinine Glucose POC Glucose 237 H 225 H 227 H Calcium Phosphorus TIBC Ferritin AST ALT Alkaline Phosphatase Lactate Dehydrogenase Total Creatine Kinase Troponin T C-Reactive Protein Serum Total Protein Total Protein Albumin Znadc-9-Qxiznanzr PEP Interpretation HDL Cholesterol Vitamin B12 Urine Creatinine Ur Creatinine 24 Hour Urine Total Protein Salicylates Acetaminophen Allied health notes reviewed: case management
--- NOTE | 2018-11-02 13:43 | Discharge Summary ---
Providers - Providers Date of Admission: 10/17/18 12:08 Date of discharge: 11/02/18 Attending physician: VAMSHI DELCID 10/17/18 10:28 Consult to Case Management [CONS] Stat Services Needed at Discharge: Drugless Physician Physical Therapy Occupational Therapy Notified:: awaiting call back Additional Physician Instructions: Need to clarify power of housekeeping lead, who is directing patient's medical care Consult to Physician [CONS] Urgent Comment: Consulting Provider: BRANDI ORDAZ Physician Instructions: Reason For Exam: ams weakness 10/17/18 10:53 Speech Therapy Evaluation and Treat [CONS] Stat Reason For Exam: dyspghagia 10/17/18 12:27 Consult to Physician [CONS] Urgent Comment: Consulting Provider: KUSUM ASCENCIO Physician Instructions: Reason For Exam: hyperkalemia ckd 10/17/18 12:33 Consult to Physician [CONS] Urgent Comment: Consulting Provider: DAVIDE CASTORENA Physician Instructions: Reason For Exam: ckd need permacath 10/19/18 08:12 Consult to Physician [CONS] Routine Comment: Consulting Provider: YUMIKO RIVERO Physician Instructions: I notified Reason For Exam: thrombocytopenia 10/19/18 13:58 Consult to Wound/ET Nurse [CONS] Routine Reason For Exam: wound eval 10/20/18 11:32 Physical Therapy Evaluation and Treat [CONS] Routine Comment: Reason For Exam: stroke 10/21/18 10:13 Consult to Physician [CONS] Routine Comment: Consulting Provider: TERRI KRAMER Physician Instructions: Reason For Exam: cva 10/23/18 13:01 Consult to Case Management [CONS] Routine Services Needed at Discharge: Other Notified:: case management Comment:: Please arrange for placement to [facility] Additional Physician Instructions: [facility] [address] [place] [id number] Phone- [phone] 10/23/18 13:52 Consult to Physician [CONS] Urgent Comment: Consulting Provider: ELIZABETH DILLON Physician Instructions: Reason For Exam: Hypotention 10/24/18 07:14 Consult to Dietitian/Nutrition [CONS] Routine Physician Instructions: Reason For Exam: Reason for Consult: Write/Manage Tube Feeding 10/25/18 17:58 Speech Therapy Evaluation and Treat [CONS] Routine Reason For Exam: dysphagia 10/26/18 15:57 Consult to Physician [CONS] Routine Comment: Consulting Provider: OSCAR BERG Physician Instructions: Reason For Exam: fever 10/27/18 15:41 Consult to Physician [CONS] Routine Comment: Consulting Provider: RAMONITA LANDAVERDE Physician Instructions: i notified Reason For Exam: E&M temperature spikes, ?line infection 10/29/18 09:52 Consult to Physician [CONS] Routine Comment: Consulting Provider: DAVIDE GALVAN Physician Instructions: Please place tunnelled PICC line Reason For Exam: Hypotension, needs vascular access 10/29/18 11:19 Consult to PICC Line RN [CONS] Stat Reason For Exam: IV access Type Line:: PICC Primary care physician: PILY CHRISTINA Hospitalization Condition: Poor Hospital course: Patient is a 63 yo woman with hypertension, dm type 2, gerd, cva, dementia, cad s/p cabg, seizure disorder, OA and CKD 4 (last Cr here was 2.2 on 01/08/2017) who presented to [facility] ED with AMS x 3 days. She was admitted for severe renal failure/uremic encephalopathy with hyperkalemia. Creatinine was found to be 5.6. She underwent emergent Hemodialysis * CT head without contrast IMPRESSION: 1. Recent infarcts in the left MCA and left SCUBA DIVER territories. Although there is no volume loss associated with SCUBA DIVER infarct, the hypoattenuation of the parenchyma and loss of laboy-white differentiation is more conspicuous, suggesting this may be an older infarct. 2. No acute hemorrhage. Report of these findings was called to Dr. Novak in the emergency department at the time of dictation. * pCXR Impression: Increasing right basilar effusion/volume loss * 10/21/2017 [facility] Conclusions: Left ventricular chamber size is severely dilated, global left ventricular systolic function is severely decreased, estimated EF is 10-15%, RVSF is severely reduced, No ASD, no endocarditis or cardioembolic source * MRI brain without contrast BRAIN / INTRACRANIAL CONTENTS: Multiple ischemic areas seen - the larger areas were seen on recent CT. Branch MCA infarct seen in the middle and inferior frontal gyral region on the left. Branch SCUBA DIVER infarct seen on the left, including calcarine cortex. Small focus of ischemia seen in the left precuneus. There are small foci of ischemia seen in the superior frontal gyrus and paracentral lobule regions on the right, superiorly. Minimal involvement of the genu/rostrum of the corpus callosum is suggested. Punctate involvement seen in the right parietal temporal region. Other, scattered, punctate areas of ischemia may be present as well. Because of these findings, embolic phenomena should be considered. Otherwise, no acute hemorrhage, mass effect, midline shift, hydrocephalus, or acute, large territorial infarct. No chronic infarct or atrophy. Lacunar infarcts suggested in the thalamic regions. There are moderate areas of increased signal intensity on FLAIR imaging in the white matter of the cerebral hemispheres, as well as the gangliocapsular regions. These are nonspecific findings and may be related to microangiopathy (hypertension, diabetes, atherosclerosis), given the patient's age. CRANIOCERVICAL JUNCTION: No significant abnormality. VASCULAR FLOW-VOIDS: No significant abnormality. ORBITS: No significant abnormality of visualized orbits. SINUSES / MASTOIDS: There is mild mucosal thickening with the ethmoids. ADDITIONAL FINDINGS: None. IMPRESSION: 1. Mul tiple areas of ischemia as described above, worrisome for embolic phenomenon. No evidence of hemorrhagic transformation at this time. * 10/27/2018 CT brain without Impression: IMPRESSION: No acute intracranial process. Evolving ischemic infarcts in the left frontal lobe and left occipital lobe as described. * US chest Impression: Small bilateral pleural effusions 10/26/18: Continue inpatient care, was going to SNF but spiked a temp of 101 F on 10/26/18 at 0438 am, this is her second temperature spike, first temp was 10/24/18 @ 0800am of 100.8F. repeat Blood cultures pending, pCXR Impression: Incr easing right basilar effusion/volume loss, UA not done because she doesn't make enough urine, She still has thomas and NGT in place. 10/27/18: Consulted ID because patient does have a line and spiking fevers 10/28/18: Unable to do HD due to AMS and patient is Hypotensive, really did not respond to 500 ml ns ivf resuscitative bolus. Will transfer back to ICU. Still with low grade temp of 100.2 F then later 100.3 F I called sister Danay [phone], discussed Hospice, but her main concern is stopping Hemodialysis in Hospice care. She received another bolus of 500 ml 10/29/18: Still hypotensive, left hand peripheral IV; therefore, will need central line for vasopressor, bp too low for Hemodialysis on MWF schedule. 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 10/31/18: still on Neosyn vasopressor and dobutamine gtt. still bp too low for HD without assistance, I called sister Danay to give her the update, wants family meeting, d/w Dr. Dillon, to defer Dr. Monsalve for Friday family meeting. 11/01/18: still on neosyn gtt, dobutamine gtt, add Midodrine. Sister Danay wants to speak with Dr. Monsalve again for possible hospice 11/02/18: still on neosyn gtt and dobutamine gtt with Midodrine, looks worse clinically with agonal type breathing. Dr. Monsalve had family meeting today, pt is going to inpatient hospice once bed is available Discharge Diagnoses: AMS most likely due to Acute Embolic Ischemic Strokes/CVA: supportive care, poor prognosis Cardiogenic Shock: did not respond to bolus therefore moved to ICU on 10/28/18 to start Vasopressor Cardiomyopathy, EF 10-15%, Cardiology is following Acute metabolic encephalopathy, poa:work up in process ARF/CKD 4 vasomotor +ATN: hemodialysis started Hyperkalemia: treated with HD, Outreach Clinician following, monitor bmp closely Glaucoma: continue latanoprost eyedrops Vitamin D deficiency: Continue vitamin D Hyperlipidemia: Continue statins Peripheral neuropathy: Continue gabapentin Seizure disorder: Continue Keppra Hypertension: Continue antihypertensives DVT prophylaxis: heparin and GI prophylaxis DNR, paperwork signed, I was told that all family members, who are concerned, were contacted and agreed per Alexandra Disposition: [id number] ([facility]) Time spent for discharge: 38 minutes Core Measure Documentation - Palliative Care Palliative Care/ Comfort Measures: Not Applicable - Core Measures Any of the following diagnoses?: none - VTE Discharge Requirements Deep Vein Thrombosis/Pulmonary Embolism Present on Admission: No Has pt received <5 days of overlap therapy or INR<2.0: No Anticoagulant overlap therapy prescribed at discharge: No Contraindication No Overlap Therapy order at DC: Not Indicated Exam - Physical Exam Narrative exam: Gen: ill appearing, chronically disable appearing, chronically non-verbal HEENT: NCAT, EOMI, PERRL, OP Clear Neck: supple, no adenopathy, no thyromegaly, no JVD CVS/Heart: RRR, normal S1S2, pulses present bilaterally Chest/Lungs: CTA B, Symmetrical chest expansion, good air entry bilaterally GI/Abdomen: soft, NTND, good bowel sounds, no guarding or rebound /Bladder: no suprapubic tenderness, no CVA or paraspinal tenderness Extermity/Skin: diffuse hyperpigmented coin lichenification lesion MSK: not following commands Neuro: not following commands Psych: lethargic - Constitutional Vitals: Temp Pulse Resp BP Pulse Ox 99.1 F 92 H 20 113/70 98 11/02/18 13:10 11/02/18 13:10 11/02/18 13:10 11/02/18 13:10 11/02/18 07:41 Plan Additional Instructions: per inpatient HOSPICE protocol Follow up with: PRIMARY CAREMD [Referring] - 3-5 Days
[2018-11-02 15:14] VITALS: BP 108/65
[2018-11-02] MEDS ORDERED: NACL 0.9 (PRIMING MACHINE ONLY DIALYSIS) MC ONE (16:21)
[2018-11-02] MEDS ORDERED: LANTUS SUB-Q SCH (22:00)
== END 2018-11-02 15:48 | disposition hospice, inpatient (51) | DRG 673 ==
LOC: ED 10:07 → 4A 12:08 → CC1 10-23 11:58 → 4A 10-24 15:40 → CC1 10-28 17:42
PROVIDERS: ADMIT Internal Medicine; ATTEND Internal Medicine
PROC: 06HY33Z Insertion of Infusion Device into Lower Vein, Percutaneous Approach (ICD-10-PCS; 2018-10-17)
PROC: B51B1ZA Fluoroscopy of Right Lower Extremity Veins using Low Osmolar Contrast, Guidance (ICD-10-PCS; 2018-10-17)
PROC: 5A1D70Z Performance of Urinary Filtration, Intermittent, Less than 6 Hours Per Day (ICD-10-PCS; 2018-10-17)
PROC: 5A1D70Z Performance of Urinary Filtration, Intermittent, Less than 6 Hours Per Day (ICD-10-PCS; 2018-10-19)
PROC: 5A1D70Z Performance of Urinary Filtration, Intermittent, Less than 6 Hours Per Day (ICD-10-PCS; 2018-10-21)
PROC: B5131ZZ Fluoroscopy of Right Jugular Veins using Low Osmolar Contrast (ICD-10-PCS; principal; 2018-10-22)
PROC: B5181ZZ Fluoroscopy of Superior Vena Cava using Low Osmolar Contrast (ICD-10-PCS; 2018-10-22)
PROC: B5161ZZ Fluoroscopy of Right Subclavian Vein using Low Osmolar Contrast (ICD-10-PCS; 2018-10-22)
PROC: B51V1ZZ Fluoroscopy of Other Veins using Low Osmolar Contrast (ICD-10-PCS; 2018-10-22)
PROC: 0JH63XZ Insertion of Tunneled Vascular Access Device into Chest Subcutaneous Tissue and Fascia, Percutaneous Approach (ICD-10-PCS; 2018-10-22)
PROC: 02H633Z Insertion of Infusion Device into Right Atrium, Percutaneous Approach (ICD-10-PCS; 2018-10-22)
PROC: B2141ZZ Fluoroscopy of Right Heart using Low Osmolar Contrast (ICD-10-PCS; 2018-10-22)
PROC: B244ZZZ Ultrasonography of Right Heart (ICD-10-PCS; 2018-10-22)
PROC: 5A1D70Z Performance of Urinary Filtration, Intermittent, Less than 6 Hours Per Day (ICD-10-PCS; 2018-10-23)
PROC: 5A1D70Z Performance of Urinary Filtration, Intermittent, Less than 6 Hours Per Day (ICD-10-PCS; 2018-10-26)
PROC: 02HV33Z Insertion of Infusion Device into Superior Vena Cava, Percutaneous Approach (ICD-10-PCS; 2018-10-29)
PROC: 5A1D70Z Performance of Urinary Filtration, Intermittent, Less than 6 Hours Per Day (ICD-10-PCS; 2018-10-30)
PROC: 5A1D70Z Performance of Urinary Filtration, Intermittent, Less than 6 Hours Per Day (ICD-10-PCS; 2018-11-02)
DX: N17.0 Acute kidney failure with tubular necrosis (principal); I63.412 Cerebral infarction due to embolism of left middle cerebral artery; G93.41 Metabolic encephalopathy; J18.9 Pneumonia, unspecified organism; J96.01 Acute respiratory failure with hypoxia; I63.432 Cerebral infarction due to embolism of left posterior cerebral artery; E87.2 Acidosis; I50.20 Unspecified systolic (congestive) heart failure; I47.2 Ventricular tachycardia; I13.2 Hypertensive heart and chronic kidney disease with heart failure and with stage 5 chronic kidney disease, or end stage renal disease; E44.0 Moderate protein-calorie malnutrition; N18.5 Chronic kidney disease, stage 5; H40.9 Unspecified glaucoma; E78.2 Mixed hyperlipidemia; E11.42 Type 2 diabetes mellitus with diabetic polyneuropathy; G40.909 Epilepsy, unspecified, not intractable, without status epilepticus; R62.7 Adult failure to thrive; F03.90 Unspecified dementia, unspecified severity, without behavioral disturbance, psychotic disturbance, mood disturbance, and anxiety; I25.10 Atherosclerotic heart disease of native coronary artery without angina pectoris; Z51.5 Encounter for palliative care; Z66 Do not resuscitate; K21.9 Gastro-esophageal reflux disease without esophagitis; G43.909 Migraine, unspecified, not intractable, without status migrainosus; E11.22 Type 2 diabetes mellitus with diabetic chronic kidney disease; D69.6 Thrombocytopenia, unspecified; Z99.2 Dependence on renal dialysis; I25.2 Old myocardial infarction; Z95.1 Presence of aortocoronary bypass graft; Z88.8 Allergy status to other drugs, medicaments and biological substances; Z79.899 Other long term (current) drug therapy; Z79.84 Long term (current) use of oral hypoglycemic drugs; I69.311 Memory deficit following cerebral infarction; Z68.21 Body mass index [BMI] 21.0-21.9, adult; I95.81 Postprocedural hypotension
CPT/HCPCS: 36415; 36558; 36600; 70450; 70544; 70547; 70551; 71045; 74018; 76604; 76705; 76770; 77001; 80048; 80053; 80061; 80074; 80320; 81001; 82140; 82550; 82565; 82570; 82575; 82607; 82728; 82747; 82803; 82962; 83550; 83615; 83735; 84100; 84156; 84165; 84300; 84439; 84443; 84484; 85007; 85025; 85027; 85610; 85670; 85730; 86022; 86140; 86334; 87040; 87086; 89050; 93005; 93010; 93306; 93308; 93312; 93320; 93321; 93325; 93880; 93970; 94644; 94760; 96365; 96375; 99285; G0378; A9270-GY; C1750; G0480; J0610; J0690; J0692; J1250; J1644; J1815; J1953; J2250; J2370; J2704; J3010; J3370; J7030; J7040; J7050; Q9967